=== PATIENT | female | born 1940 | race Caucasian/White ===

== ENCOUNTER → 2017-01-30 | Outpatient (CLI) | payer OTHER ==
[~2017-01-30] MED LIST: ACET-1256 PO; ALUMSUS21 PO; ANT25 PO; ARMO150T4 PO; BIOT1TAB2 PO; CALC8.5C PO; CYAN500T13 PO; CZR50 PO; ESCI1TAB10 PO; FNTTP50 TD; HYDR-4383 PO; LEVO75TA PO; LORA0.5T12 PO; MULT-513 PO; PANT1TAB48 PO; POLY335019 PO; POTA10CA28 PO; PRMVC PV; RANI300T2 PO; SUCR1TAB29 PO
--- NOTE | 2017-01-30 16:03 | DIAGNOSTIC IMAGING REPORT ---
LUMBAR SPINE MRI HISTORY: LUMBAR SPONDYLOSIS TECHNIQUE: Multiplanar multisequence MRI of the lumbar spine was performed without the use of contrast. COMPARISON: Lumbar spine radiograph 08/09/2011. FINDINGS: For the purpose of the report the L5-S1 disc space will be located on axial image . Moderate levoscoliosis. Posterior decompression fusion at L5-S1 with pedicle screws and rods. Stable 7 mm of anterolisthesis of L5 on S1. Severe disc space narrowing at T12-L1. Moderate disc space narrowing at L1-L2 and L3-L4. Mild disc space to L2-L3 and L4-L5. No fractures within the lumbar spine. Mild edema within the soft tissues posterior to the laminectomy sites. This favors postoperative change. The conus terminates at the L1-L2 disc space level. L1-L2: Focal right paracentral disc protrusion with inferior subligamentous migration. The disc protrusion measures 8 x 5 mm. This abuts but does not displace the transiting right L2 nerve root. No significant central canal narrowing. Severe right-sided neural foraminal narrowing due to the facet hypertrophy and scoliosis. L2-L3: Broad-based posterior disc bulge asymmetric to the right resulting in mild central canal and mild left neural foraminal narrowing. Moderate right neural foraminal narrowing. L3-L4: Broad-based posterior disc bulge asymmetric to the left resulting in mild central canal and mild right neural foraminal narrowing. There is severe left neural foraminal narrowing. L4-L5: Small broad-based posterior disc bulge without significant central canal narrowing. There is mild left neural foraminal narrowing. L5-S1: No significant central canal narrowing due to the posterior decompression. Severe bilateral neural frontal narrowing primarily due to the spondylolisthesis. IMPRESSION: 1. Moderate levoscoliosis. 2. Multilevel lumbar spondylosis as described above resulting in mild central canal narrowing at the L2-L3 and L3-L4 levels. There is also bilateral neural foraminal narrowing throughout the majority of the lumbar spine most severe at the L1-L2, L3-L4, and L5-S1 levels. 3. Posterior decompression and fusion at L5-S1 with pedicle screws and rods. Stable grade I/II anterolisthesis of L5 on S1. Electronically signed by: Alfred Mcmanus M.D. 01/30/2017 4:02 PM Dictated Date/Time: 01/30/2017 3:40 PM
== END | disposition home or self-care (01) ==
LOC: C.MRIBC 13:58
PROVIDERS: ATTEND Orthopaedic Surgery Orthopaedic Surgery of the Spine
DX: M47.16 Other spondylosis with myelopathy, lumbar region (principal)

== ENCOUNTER → 2017-02-05 | Outpatient (CLI) | payer OTHER ==
[2017-02-05 17:10] LABS: THYROID STIMULATING HORMONE 0.699 uIu/ml (0.300-4.500)
== END | disposition home or self-care (01) ==
LOC: C.LAB1850 15:15
PROVIDERS: ATTEND Internal Medicine Endocrinology, Diabetes & Metabolism
DX: M81.0 Age-related osteoporosis without current pathological fracture (principal); E03.9 Hypothyroidism, unspecified

== ENCOUNTER → 2017-02-10 | Outpatient (CLI) | payer OTHER ==
--- NOTE | 2017-02-10 09:43 | DIAGNOSTIC IMAGING REPORT ---
THYROID ULTRASOUND CLINICAL HISTORY: Solitary thyroid nodule. COMPARISON STUDY: Thyroid ultrasound February 07, 2016 and ultrasound guided fine needle aspiration of left lobe thyroid nodule February 22, 2016. TECHNIQUE: Sonography of the thyroid gland was performed. FINDINGS: The right thyroid lobe measures 4.8 x 1.5 x 0.9 cm and the left lobe measures 4.2 x 1.2 x 1.2 cm. The 1.4 x 1 x 0.9 cm circumscribed echogenic left lobe nodule within hypoechoic rim is unchanged since exam of February 07, 2016. This nodule was previously biopsied. 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 These are unchanged. IMPRESSION: No change in the 1.4 cm left lobe thyroid nodule which was previously biopsied. Electronically signed by: Kwasi Muhammad M.D. 02/10/2017 9:41 AM Dictated Date/Time: 02/10/2017 9:39 AM
== END | disposition home or self-care (01) ==
LOC: C.ULTR 08:59
PROVIDERS: ATTEND Internal Medicine Endocrinology, Diabetes & Metabolism
DX: E04.1 Nontoxic single thyroid nodule (principal)

== ENCOUNTER → 2017-03-17 | Outpatient (CLI) | payer OTHER ==
[2017-03-17 13:13] LABS: THYROID STIMULATING HORMONE 0.53 uIu/ml (0.300-4.500)
== END | disposition home or self-care (01) ==
LOC: C.LAB1850 11:22
PROVIDERS: ATTEND Internal Medicine Endocrinology, Diabetes & Metabolism
DX: E03.9 Hypothyroidism, unspecified (principal)

== ENCOUNTER → 2017-03-31 | Outpatient (CLI) | payer OTHER ==
--- NOTE | 2017-03-31 11:14 | DIAGNOSTIC IMAGING REPORT ---
GI SERIES W/O KUB CLINICAL HISTORY: Hiatal hernia. Epigastric pain. COMPARISON STUDY: None. FLUOROSCOPY TIME: 2.3 minutes. 20 images submitted. FINDINGS: The patient swallowed barium without difficulty. The esophagus is normal in course, caliber, motility. No hiatus hernia. No gastroesophageal reflux. Abnormal appearance to the proximal stomach which appears slightly narrowed. The duodenal bulb and duodenal C sweep are within normal limits. IMPRESSION: 1. Abnormal appearance to the proximal stomach which appears slightly narrowed. This could be within normal limits given the history of postoperative change. However, this is difficult to confirm without priors for comparison. 2. No hiatus hernia. 3. No gastroesophageal reflux. Electronically signed by: Alfred Mcmanus M.D. 03/31/2017 11:13 AM Dictated Date/Time: 03/31/2017 11:09 AM
== END | disposition home or self-care (01) ==
LOC: C.RAD 10:21
PROVIDERS: ATTEND Surgery
DX: K44.9 Diaphragmatic hernia without obstruction or gangrene (principal)

== ENCOUNTER → 2017-05-21 | Outpatient (CLI) | payer OTHER ==
[2017-05-21 10:10] LABS: THYROID STIMULATING HORMONE 0.442 uIu/ml (0.300-4.500)
== END | disposition home or self-care (01) ==
LOC: C.LAB1850 07:18
PROVIDERS: ATTEND Internal Medicine Endocrinology, Diabetes & Metabolism
DX: E03.9 Hypothyroidism, unspecified (principal)

== ENCOUNTER → 2017-06-01 | Outpatient (CLI) | payer OTHER ==
--- NOTE | 2017-06-02 06:17 | PAP/PSG TECHNICIAN REPORT ---
[facility] Call Center Operations Manager Polysomnogram Report Study name: None Report date: 06/02/2017 Study date: 06/01/2017 Referring Physician: Monserrat Orta Name: INO ANDERSON Interpreting Physician: Ji Guadalupe M.D. Date of : 1940 Call Center Operations Manager: Subhash Noel RPSGT. Sex: Female Age: 76 StudyType: PSG Weight: 109 lbs 12.25 inches Height: 76 years, Height 4' 11" Neck Circum: BMI: 22.01 Medications: LEVSIN/SL, XELJANZ 5 MG, CYTOMEL 5 MCG, LOSARTAN-HCTZ 100-25 MG, HYZAAR 100-25 MG, SYNTHROID 75 MCG, RANITIDINE HCL 300 MG, DURAGESIC 50 MCG/HR, LEXAPRO 20 MG, MIRALAX, BIOTIN 5000 MCG, [id number] MG, PREMARIN, LORAZEPAM 0.5 MG, NUVIGIL 250 MG Patient History PATIENT HAS HISTORY OF SNORING, WITNESSED APNEAS, NOCTURIA AND MORNING HEADACHES. SHE WAS HOSPITALIZED A FEW MONTHS AGO AND WAS PUT ON OXYGEN DUE TO NOCTURNAL HYPOXEMIA. SHE IS HERE TODAY FOR AN EVALUATION FOR ARTHUR. ESS = 6 RM 7 Parameters Monitored NPSG: E1-M2, E2-M1, Fp1-M2, Fp2-M1, F3-M2, F4-M2, F4-M1, C3-M2, C4-M2, C4-M1, O1-M2, O2-M2, O2-M1, T3-M2, T4-M1, P3-M2, P4-M1, CHIN1, CHIN2, HR, EKG, Legs, PFLOW, SNOR, FLOW, CFLOW, Tidal Volume, THOR, ABDO, SpO2, PLTH, CPRESS, ETCO2 Wave, ETCO2, pH Sleep Architecture Sleep Stages Time at Lights Off 8:40:09 PM STAGES Time (min.) TST (%) Time at Lights On 5:51:39 AM Wake 73.5 -- Total Recording Time (TRT) 552.00 min. N1 25.0 5 Total Sleep Period (TSP) 501.5 min. N2 396.0 83 Total Sleep Time (TST) 478.0min. N3 6.0 1 Awake Time 74.0 min. REM 51.0 11 Wake after Sleep Onset 24.5 min. Sleep Efficiency (SE) 87 % Sleep Onset Latency (NITO) 49.0 min. Number of Stage 1 Shifts None Awakenings 20 Stage Changes 84 Number of REM periods 2 REM 51.0 11 REM Latency 231.0 min. NREM 427.0 89 Body Position Analysis Supine Right Left Side Prone Vertical Total Sleep Time (min.) 80.1 99.0 320.5 419.50 0.0 0.0 Total Sleep Time (%) 12% 21% 67% 88 0% N/A% Total Sleep Time REM (min.) 35.5 0.0 15.5 None 0.0 0.0 Total Sleep Time NREM (min.) 23.0 99.0 305.0 None 0.0 0.0 Intermittent Wake (min.) 21.6 1.4 50.5 None 0.0 0.0 Total Sleep Period (%) 13% None None None None None Arousals Myoclonus (PLM) * Events Count Index Events Count Index Spontaneous 73 9 Events Awake (PLMW) 21 17.1 Respiratory 11 1.4 Events Asleep w/ Arousal (PLMA) 7 0.9 PLM 7 1 Events Asleep w/o Arousal (PLMS) 104 13.1 Snoring 2 0 Total Asleep 111 13.9 Total 93 12 Total 132 14 Respiratory Analysis * CA OA MA CH H RERA Total Count 102 3 3 0 158 1 266 Index 12.8 0.4 0.4 0 19.8 0 33.5 Mean Duration 26.9 14.0 29.7 0.00 25.1 19.1 25.7 Longest Duration 37.2 18.2 32.2 0.00 32.2 19.1 38.2 Respiratory Event Summary Total Supine ~Supine Right Left Prone REM NREM Apneas Count 108 11 97 87 10 N/A 9 99 Index 13.6 11 14 52.7 1.9 N/A 11 14 Hypopneas (4% Desat) Count 158 36 122 26 96 N/A 18 140 Index 19.8 36.9 17 15.8 18.0 N/A 21.2 19.7 Apneas & All Hypopneas Count 266 47 219 113 106 N/A 27 239 Index 33.4 48 31 68 20 N/A 31.8 33.6 Respiratory Events (Harness Inspector+All Hyp+RERA) Count 266 47 220 113 107 N/A 27 239 Index 33.5 48 31 68.5 20.0 N/A 31.8 33.7 Respiratory Related Arousal Count 11 47 3 0 3 N/A 3 8 Index 1.4 8 0 0 1 N/A 4 1 Snoring Analysis Supine Right Left Prone REM NREM Total Snore duration 0.6 min Snores count 17 9 7 N/A 16 17 33 Snore mean duration 1.2 Sec Snores index 17 5 1 N/A 18.8 2.4 4.1 TST with snoring (%) 0.1% Desaturation Event Summary: Minimum %SpO2 Event Count Mean/Min/Max Duration(sec.) Desaturation Index % Time In Bed > 90 270 26.5 / 9.8 / 54.0 36.5 80.5 86 - 90 10 22.8 / 15.0 / 30.5 5.7 19.1 81 - 85 0 N/A 0.0 0.4 76 - 80 0 N/A 0.0 0.0 71 - 75 0 N/A 0.0 0.0 66 - 70 0 N/A 0.0 0.0 61 - 65 0 N/A 0.0 0.0 56 - 60 0 N/A 0.0 0.0 51 - 55 0 N/A 0.0 0.0 < 50 0 N/A 0.0 0.0 Total REM NREM Awake <50% 0.0 min. 0.0 min. 0.0 min. 0.0 min. 51 - 60% 0.0 min. 0.0 min. 0.0 min. 0.0 min. 61 - 70% 0.0 min. 0.0 min. 0.0 min. 0.0 min. 71 - 80% 0.0 min. 0.0 min. 0.0 min. 0.0 min. 81 - 90% 107.4 min. 21.4 min. 82.9 min. 3.1 min. 91 - 100% 444.0 min. 29.6 min. 344.1 min. 70.3 min. Average 92 91 92 93 Minimum SpO2 85 85 85 85 Desaturation Event Index 29.6 34.1 33.7 3.3 # Desat. Events below 89% 146 21 123 2 Time(%) with Saturation below 89% 6.8 1.1 5.6 0.1 Time(min.) with Saturation below 89% 37.6 6.3 30.7 0.5 Time (mins) REM (mins) NREM (mins) % of TST SpO2 Below 90% 252 29 N223 12.1 SpO2 Below 88% 61 0 0 5 Heart Rate Analysis Min (bpm) Max (bpm) Average (bpm) Awake 45 67 59 NREM 45 62 52 REM 45 61 54 Overall 45 62 52 Supplemental O2 Values Minimum O2 level: None Value Start Time End Time Call Center Operations Manager Comments Mrs. Anderson slept in the right, left and supine positions. PAC's noted. Leg movements noted. No bruxism noted. Snoring was noted and scored as a 1 on a scale of 1 through 5. (0=no snoring, 5=snoring loud enough to be heard through a closed door or down the [address] way) Mrs. Anderson awoke to use the restroom 0 times during the night. Mrs. Anderson stated I slept as well as I do when I am in my own bed. The final report will be interpreted and signed by a sleep physician. The completed physician report will then be placed in the patient medical record. Therapy (cm H2O) 0 TIB (min.) 551.5 TST (min.) 478.0 Sleep Onset (min.) 49.0 REM Onset From Sleep (min.) 231.0 Sleep Efficiency % 87 Wakefulness (%) 13 Wakefulness (min.) 74.0 NREM 1 (%) 5 NREM 1 (min.) 25.0 NREM 2 (%) 83 NREM 2 (min.) 396.0 NREM 3 (%) 1 NREM 3 (min.) 6.0 REM (%) 11 REM (min.) 51.0 # Arousals 93 Arousal Index 12 # Snore 33 Snore Index 4.1 AHI 33.4 AHI Supine 48 AHI Non-Supine 31 NREM AHI 33.6 REM AHI 31.8 RDI 33.5 # Obstructive Apnea 3 # Central Apnea 102 # Mixed Apnea 3 # Hypopneas 158 RERAs 1 Total Respiratory Events 267 Time Below SpO2 89% (min.) 37.1 Mean NREM SpO2 (%) 92 Mean REM SpO2 (%) 91 Mean Sleep SpO2 (%) 92 Min NREM SpO2 (%) 85 Min REM SpO2 (%) 85 Position Supine (min.) 80.1 Position Non-supine (min.) 419.5 LM Index Sleep 13.9 LM Index NREM 12.6 LM Index REM 24.7 Mean Heart Rate (bpm) 52 Min Heart Rate (bpm) 45
--- NOTE | 2017-06-04 13:07 | POLYSOMNOGRAPH REPORT ---
CLINICAL DATA: A 76-year-old female with BMI of [address] Wiley for evaluation of snoring, witnessed apneas, nocturia, and morning headaches. She was hospitalized several months ago and put on oxygen due to nocturnal hypoxemia. Her [place] sleepiness score was 6/24. SLEEP ARCHITECTURE: Total sleep period was 501.5 minutes. Total sleep time was 478 minutes divided between 427 minutes of non-REM sleep and 51 minutes of REM sleep. Sleep onset latency was delayed at 49 minutes. REM latency was delayed at 231 minutes. Sleep efficiency was 87%. Wake after sleep onset was 24.5 minutes. Sleep consisted of stage N1 5%, stage N2 83%, stage N3 1%, and REM 11%. AROUSAL DATA: 93 arousals were recorded for an index of 12 per hour. 73 were spontaneous. PERIODIC LIMB MOVEMENTS DATA: 111 limb movements during sleep were noted for an index of 13.9 per hour with arousal index of 0.9 per hour. RESPIRATORY DATA: Severe sleep apnea was documented. The AHI was 33.4. There were 102 central, 3 obstructive, and 3 mixed apneic episodes. The longest duration of apnea was 37.2 seconds. There were 158 hypopneic episodes. The longest duration of hypopnea was 32.2 seconds. OXIMETRY DATA: Nocturnal hypoxemia was seen. Oxygen moises was 85% during REM. Mean saturation was 95%. Time below 88% was 61 minutes. EKG: Heart rates ranged from 45-62 beats per minute. PACs were noted. GREEN CHAIN PULLER'S COMMENTS: The patient slept in the right, left, and supine positions. Snoring was mild, rated 1 on a scale of 1-5. IMPRESSION: Severe sleep apnea/hypopnea with nocturnal hypoxemia. The patient's apneic episodes were primarily central in origin, which raises the question of underlying cardiac disease. RECOMMENDATIONS: The patient may benefit from a repeat sleep study with CPAP or possibly ASV. Clinical correlation is needed. [facility]ITAL[facility]
== END | disposition home or self-care (01) ==
LOC: C.NEUR 20:00
PROVIDERS: ATTEND Nurse Practitioner Family
DX: G47.31 Primary central sleep apnea (principal)

== ENCOUNTER → 2017-07-07 | Outpatient (CLI) | payer OTHER ==
[2017-07-07 17:15] LABS: THYROID STIMULATING HORMONE 0.412 uIu/ml (0.300-4.500)
== END | disposition home or self-care (01) ==
LOC: C.LAB1850 15:45
PROVIDERS: ATTEND Internal Medicine Endocrinology, Diabetes & Metabolism
DX: E03.9 Hypothyroidism, unspecified (principal)

== ENCOUNTER → 2017-07-13 | Outpatient (CLI) | payer OTHER ==
[~2017-07-13] MED LIST changes: +PANT1TAB3 PO; -PANT1TAB48 PO
--- NOTE | 2017-07-14 06:34 | PAP/PSG TECHNICIAN REPORT ---
[facility] Optometry Assistant Polysomnogram Report Study name: None Report date: 07/14/2017 Study date: 07/13/2017 Referring Physician: Dr. Miley Mckinney M.D. Name: INO ANDERSON Interpreting Physician: Ji Guadalupe M.D. Date of : 1940 Optometry Assistant: Kathleen Licea RUST. Sex: Female Age: 76 StudyType: PSG PAP Weight: 109 lbs Height: 76 years, Height 4' 11" Neck Circum:12.25inches BMI: 22.01 Medications: Oxygen at bedtime, Pamelor 25mg, Levsin/sl 0.125mg, Xeljanz 5mg, Prevacid 30mg, Cytomel 5mcg, Losartan-HCTZ 100-25mg, Synthroid 75mcg, Ranitidine 300mg, Duragesic 50mcg/hr, Lexapro 20mg, Miralax, Biotin, Hydrocodone=Acetaminophen 10-325mg, Premarin 0.625mg/gm, Calcium-Vit D-Vit K, Lorazepam 0.5mg, B-12 500mcg, Nuvigil 250mg, Epipen 0.3mg/0.3ml Patient History Study started on room air with 4cwp cpap in room #8. 76 yr old female here tonight for a new titration study. She had a diagnostic psg done here on 06/01/17 that had an AHI of 33.4 with a large number of central apneas. Her ESS=6/24. Neck circ=12.25inches Parameters Monitored NPSG: E1-M2, E2-M1, Fp1-M2, Fp2-M1, F3-M2, F4-M2, F4-M1, C3-M2, C4-M2, C4-M1, O1-M2, O2-M2, O2-M1, T3-M2, T4-M1, P3-M2, P4-M1, CHIN1, CHIN2, HR, EKG, Legs, PFLOW, SNOR, FLOW, CFLOW, Tidal Volume, THOR, ABDO, SpO2, PLTH, CPRESS, ETCO2 Wave, ETCO2, pH Sleep Architecture Sleep Stages Time at Lights Off 9:50:12 PM STAGES Time (min.) TST (%) Time at Lights On 5:52:12 AM Wake 74.5 -- Total Recording Time (TRT) 482.00 min. N1 7.0 2 Total Sleep Period (TSP) 425.5 min. N2 321.5 79 Total Sleep Time (TST) 407.5min. N3 35.5 9 Awake Time 74.5 min. REM 43.5 11 Wake after Sleep Onset 18.0 min. Sleep Efficiency (SE) 85 % Sleep Onset Latency (NITO) 56.5 min. Number of Stage 1 Shifts None Awakenings 8 Stage Changes 39 Number of REM periods 1 REM 43.5 11 REM Latency 382.0 min. NREM 364.0 89 Body Position Analysis Supine Right Left Side Prone Vertical Total Sleep Time (min.) 136.8 0.0 329.0 329.00 0.0 0.0 Total Sleep Time (%) 19% 0% 81% 81 0% N/A% Total Sleep Time REM (min.) 0.0 0.0 43.5 None 0.0 0.0 Total Sleep Time NREM (min.) 78.5 0.0 285.5 None 0.0 0.0 Intermittent Wake (min.) 58.3 0.0 16.2 None 0.0 0.0 Total Sleep Period (%) 19% None None None None None Arousals Myoclonus (PLM) * Events Count Index Events Count Index Spontaneous 16 2 Events Awake (PLMW) 16 12.9 Respiratory 1 0.1 Events Asleep w/ Arousal (PLMA) 2 0.3 PLM 2 0 Events Asleep w/o Arousal (PLMS) 71 10.5 Snoring 0 0 Total Asleep 73 10.7 Total 19 3 Total 89 11 Respiratory Analysis * CA OA MA CH H RERA Total Count 0 1 0 0 12 0 13 Index 0.0 0.1 0.0 0 1.8 0 1.9 Mean Duration 0.0 48.8 0.0 0.00 33.1 0.0 34.3 Longest Duration 0.0 48.8 0.0 0.00 0.0 0.0 48.8 Respiratory Event Summary Total Supine ~Supine Right Left Prone REM NREM Apneas Count 1 0 1 N/A 1 N/A 1 0 Index 0.1 0 0 N/A 0.2 N/A 1 0 Hypopneas (4% Desat) Count 12 10 2 N/A 2 N/A 0 12 Index 1.8 7.6 0 N/A 0.4 N/A 0.0 2.0 Apneas & All Hypopneas Count 13 10 3 N/A 3 N/A 1 12 Index 1.9 8 1 N/A 1 N/A 1.4 2.0 Respiratory Events (Model Maker+All Hyp+RERA) Count 13 10 3 N/A 3 N/A 1 12 Index 1.9 8 1 N/A 0.5 N/A 1.4 2.0 Respiratory Related Arousal Count 1 10 0 N/A 0 N/A 0 1 Index 0.1 1 0 N/A 0 N/A 0 0 Snoring Analysis Supine Right Left Prone REM NREM Total Snore duration 0.1 min Snores count 2 N/A 2 N/A 0 4 4 Snore mean duration 1.1 Sec Snores index 2 N/A 0 N/A 0.0 0.7 0.6 TST with snoring (%) 0.0% Desaturation Event Summary: Minimum %SpO2 Event Count Mean/Min/Max Duration(sec.) Desaturation Index % Time In Bed > 90 18 30.3 / 16.3 / 49.3 2.3 98.3 86 - 90 0 N/A 0.0 1.7 81 - 85 0 N/A 0.0 0.0 76 - 80 0 N/A 0.0 0.0 71 - 75 0 N/A 0.0 0.0 66 - 70 0 N/A 0.0 0.0 61 - 65 0 N/A 0.0 0.0 56 - 60 0 N/A 0.0 0.0 51 - 55 0 N/A 0.0 0.0 < 50 0 N/A 0.0 0.0 Total REM NREM Awake <50% 0.0 min. 0.0 min. 0.0 min. 0.0 min. 51 - 60% 0.0 min. 0.0 min. 0.0 min. 0.0 min. 61 - 70% 0.0 min. 0.0 min. 0.0 min. 0.0 min. 71 - 80% 0.0 min. 0.0 min. 0.0 min. 0.0 min. 81 - 90% 8.0 min. 0.0 min. 0.3 min. 7.7 min. 91 - 100% 473.3 min. 43.5 min. 363.7 min. 66.1 min. Average 94 93 94 92 Minimum SpO2 90 91 90 90 Desaturation Event Index 2.2 0.0 2.3 3.2 # Desat. Events below 89% N/A N/A N/A N/A Time(%) with Saturation below 89% 0.0 0.0 0.0 0.0 Time(min.) with Saturation below 89% 0.0 0.0 0.0 0.0 Time (mins) REM (mins) NREM (mins) % of TST SpO2 Below 90% N/A N/A NN/A 0.0 SpO2 Below 88% 0 0 0 0 Heart Rate Analysis Min (bpm) Max (bpm) Average (bpm) Awake 50 63 57 NREM 48 59 53 REM 48 63 57 Overall 48 63 53 Supplemental O2 Values Minimum O2 level: None Value Start Time End Time Optometry Assistant Comments Mrs. Anderson slept in the left and supine positions. No cardiac arrhythmia noted. Some leg movements were noted. No bruxism noted. CPAP was initiated at +4 CMH2O and up-titrated to a level of +7 CMH2O. A small AirTouch F20 full face mask by [employer] was used during titration. She did not use the restroom during the night. She stated that she slept well. The final report will be interpreted and signed by a sleep physician. The completed physician report will then be placed in the patient medical record. Therapy Event: Therapy (cm H20) 4 5 6 7 Total Time at Pressure (min.) 91.9 9.5 28.8 351.8 TST at Pressure (min.) 34.9 9.5 28.3 334.8 # Periods 1 1 1 1 Sleep Onset (min.) 56.5 0.0 0.0 0.0 REM Onset (min.) N/A N/A N/A 308.3 Sleep Efficiency % 38 100 98 95 Wakefulness (%) 62.0 0.0 1.7 4.8 Wakefulness (min.) 57.0 0.0 0.5 17.0 NREM 1 (%) 1.1 0.0 0.0 1.7 NREM 1 (min.) 1.0 0.0 0.0 6.0 NREM 2 (%) 36.9 100.0 98.3 71.0 NREM 2 (min.) 33.9 9.5 28.3 249.8 NREM 3 (%) 0.0 0.0 0.0 10.1 NREM 3 (min.) 0.0 0.0 0.0 35.5 REM (%) 0.0 0.0 0.0 12.4 REM (min.) 0.0 0.0 0.0 43.5 # Arousals 1 1 2 15 Arousal Index 1.7 6.3 4.2 2.7 # Snore 1 0 1 2 Snore Index 1.7 0.0 2.1 0.4 AHI 8.6 12.7 6.4 0.5 AHI Supine 8.6 12.7 6.4 0.0 AHI Non-Supine N/A N/A N/A 0.5 NREM AHI 8.6 12.7 6.4 0.4 REM AHI N/A N/A N/A 1.4 RDI 8.6 12.7 6.4 0.5 # Obstructive 0 0 0 1 # Central Ap 0 0 0 0 # Mixed 0 0 0 0 # Hypopneas 5 2 3 2 RERAS 0 0 0 0 Total Respiratory Events 5 2 3 3 Time Below SpO2 89.00% (min.) 0.0 0.0 0.0 0.0 Mean NREM SpO2 (%) 93 95 95 94 Mean REM SpO2 (%) N/A N/A N/A 93 Mean Sleep SpO2 (%) 93 95 95 94 Min NREM SpO2 (%) 90 92 92 91 Min REM SpO2 (%) N/A N/A N/A 91 Position Supine (min.) 34.9 9.5 28.3 5.8 Position Non-supine (min.) 0.0 0.0 0.0 329.0 LM Index Sleep 17.2 12.7 16.9 9.5 LM Index NREM 17.2 12.7 16.9 9.7 LM Index REM N/A N/A N/A 8.3 Mean Heart Rate (bpm) 55 53 53 53 Min Heart Rate (bpm) 50 51 49 48
--- NOTE | 2017-07-14 18:40 | POLYSOMNOGRAPH REPORT ---
CLINICAL DATA: A 76-year-old female with a BMI of 22, referred by Dr. Mckinney for CPAP titration study. She had severe sleep apnea diagnosed on a sleep study done in 06/01/2017 with an AHI of 33.4 with large number of central apneic episodes. Her [place] sleepiness score is 6/24. SLEEP ARCHITECTURE: Total sleep period was 425.5 minutes. Total sleep time was 407.5 minutes divided between 364 minutes of non-REM sleep and 43.5 minutes of REM sleep. Sleep onset latency was delayed at 56.5 minutes. REM latency was delayed at 382 minutes. Sleep efficiency was 85%. Wake after sleep onset was 18 minutes. Sleep consisted of stage N1 2%, stage N2 79%, stage N3 9%, and REM 11%. AROUSAL DATA: Nineteen arousals were recorded for an index of 3 per hour. Sixteen were spontaneous. PERIODIC LIMB MOVEMENT DATA: Seventy three limb movements during sleep were noted for an index of 10.7 per hour with arousal index of 0.3 per hour. RESPIRATORY DATA: The AHI was 1.9. There was 1 obstructive apneic episode 48.8 seconds in duration. There were 12 hypopneic episodes with the mean duration of 33 seconds. OXIMETRY DATA: No hypoxemia was seen. Oxygen moises was 90%. Mean saturation was 94%. ECHOCARDIOGRAM: Heart rates ranged from 48-62 beats per minute. No arrhythmias were noted. PULMONARY FUNCTION TECHNOLOGIST'S COMMENTS AND TREATMENT SUMMARY: The patient slept in the left and supine positions. A small AirTouch F20 full facemask by [employer] was used. The patient was titrated up to her final pressure of 7 cm water pressure. At her final setting, she slept for 334.8 minutes with an AHI of 0.5. IMPRESSION: Severe sleep apnea/hypopnea corrected with CPAP 7 cm of water pressure, small AirTouch F20 full facemask by [employer]. RECOMMENDATIONS: The patient should be started on the above noted treatment regimen and seen back in followup within 90 days to document efficacy and compliance. [facility]
== END | disposition home or self-care (01) ==
LOC: C.NEUR 21:00
PROVIDERS: ATTEND Internal Medicine
DX: G47.31 Primary central sleep apnea (principal)

== ENCOUNTER → 2017-08-21 | Outpatient (CLI) | payer OTHER | END | disposition home or self-care (01) | LOC: C.LAB1850 13:13 | PROVIDERS: ATTEND Internal Medicine Endocrinology, Diabetes & Metabolism | DX: E03.9 Hypothyroidism, unspecified (principal) ==

== ENCOUNTER → 2017-10-20 | Outpatient (CLI) | payer OTHER | END | disposition home or self-care (01) | LOC: C.LAB1850 13:56 | PROVIDERS: ATTEND Internal Medicine Endocrinology, Diabetes & Metabolism | DX: E03.9 Hypothyroidism, unspecified (principal) ==

== ENCOUNTER → 2018-03-17 | Outpatient (CLI) | payer OTHER ==
[2018-03-17 13:16] LABS: BASO % 0.5 %; BASO ABS # 0.03 K/uL (0-0.2); EOS % 0.4 %; EOS ABS # 0.02 K/uL (0-0.5); HEMATOCRIT 38.9 % (37-47); HEMOGLOBIN 13.3 g/dL (12.0-16.0); IG# 0.02 K/uL (0.00-0.02); LYMPH % 26.8 %; MEAN CELL VOLUME 96.3 fL (80-100); MEAN CORPUSCULAR HEMOGLOBIN 32.9 pg (25-34); MEAN CORPUSCULAR HGB CONC 34.2 g/dl (32-36); MEAN PLATELET VOLUME 8.6 fL (7.4-10.4); MONO % 6.8 %; MONO ABS # 0.38 K/uL (0.11-0.59); NEUT % 65.1 %; NEUT ABS # 3.64 K/uL (1.4-6.5); PLATELET COUNT 211 K/uL (130-400); RED CELL DISTRIBUTION WIDTH CV 13.5 % (11.5-14.5); RED CELL DISTRIBUTION WIDTH SD 48.3 fL (36.4-46.3); WHITE BLOOD COUNT 5.59 K/uL (4.8-10.8)
[2018-03-17 13:50] LABS: T3 FREE 2.33 pg/ml (2.30-4.20)
[2018-03-17 13:51] LABS: ALBUMIN 3.7 gm/dl (3.4-5.0); ALKALINE PHOSPHATASE 65 U/L (45-117); ALT/SGPT 31 U/L (12-78); AST/SGOT 26 U/L (15-37); BLOOD UREA NITROGEN 24 mg/dl (7-18); CALCIUM 9.4 mg/dl (8.5-10.1); CARBON DIOXIDE 30 mmol/L (21-32); CREATININE 0.74 mg/dl (0.60-1.20); GLUCOSE 85 mg/dl (70-99); POTASSIUM 4.2 mmol/L (3.5-5.1); SODIUM 139 mmol/L (136-145); TOTAL PROTEIN 7.1 gm/dl (6.4-8.2)
[2018-03-18 14:17] LABS: MICROSOMAL AB 2 IU/ML (<9)
== END | disposition home or self-care (01) ==
LOC: C.LAB1850 11:44
PROVIDERS: ATTEND Internal Medicine Endocrinology, Diabetes & Metabolism
DX: E03.9 Hypothyroidism, unspecified (principal); M81.0 Age-related osteoporosis without current pathological fracture

== ENCOUNTER 2018-11-20 04:49 | Inpatient (IN) ==
--- NOTE | 2018-10-20 12:19 | PAT Medication Instructions ---
Medication Instructions Date of Service October 20, 2018 Home Medications [Gaviscon] x ml PO DIRECTED PRN armodafinil [Nuvigil] 250 mg PO QAM biotin 5,000 mcg PO TID [Viactiv] 1 tab PO BID conjugated estrogens [Premarin] 0.5 g VAGINAL 3XWK cyanocobalamin (vitamin B-12) 1,000 mcg PO DAILY diclofenac sodium 2 g TOPICAL QID PRN duloxetine 60 mg PO QAM epinephrine [EpiPen] 0.3 mg IM Q3H PRN hydrocodone-acetaminophen 1 tab PO Q6H PRN lansoprazole 30 mg PO BID levothyroxine [Synthroid] 75 mcg PO QAM losartan-hydrochlorothiazide 1 tab PO QAM meclizine 25 mg PO TID PRN nitroglycerin [Nitrostat] 0.3 mg SUBLINGUAL DIRECTED PRN oxybutynin chloride 10 mg PO QAM polyethylene glycol 3350 [Miralax] 17 g PO DAILY ranitidine HCl [Zantac] 150 mg PO Q12 sucralfate 10 ml PO QID PRN tizanidine 4 mg PO TID PRN tofacitinib [Xeljanz] 5 mg PO BID [place] 3 1 dose PO DAILY [[employer]] 1 tab PO DAILY Continue as directed epinephrine [EpiPen] 0.3 mg IM Q3H PRN ASK your prescriber and surgeon tofacitinib [Xeljanz] 5 mg PO BID STOP taking 2 weeks before surgery [place] 3 1 dose PO DAILY STOP taking 24 hours before surgery conjugated estrogens [Premarin] 0.5 g VAGINAL 3XWK diclofenac sodium 2 g TOPICAL QID PRN DO NOT take the morning of surgery [Gaviscon] x ml PO DIRECTED PRN armodafinil [Nuvigil] 250 mg PO QAM biotin 5,000 mcg PO TID [Viactiv] 1 tab PO BID cyanocobalamin (vitamin B-12) 1,000 mcg PO DAILY diclofenac sodium 2 g TOPICAL QID PRN losartan-hydrochlorothiazide 1 tab PO QAM oxybutynin chloride 10 mg PO QAM polyethylene glycol 3350 [Miralax] 17 g PO DAILY sucralfate 10 ml PO QID PRN tizanidine 4 mg PO TID PRN [[employer] Women] 1 tab PO DAILY Take morning of surgery With a small sip of water, OTHERWISE NOTHING TO EAT OR DRINK AFTER MIDNIGHT: duloxetine 60 mg PO QAM hydrocodone-acetaminophen 1 tab PO Q6H PRN (if needed, may be taken up to four hours before surgery) lansoprazole 30 mg PO BID levothyroxine [Synthroid] 75 mcg PO QAM meclizine 25 mg PO TID PRN (if needed) nitroglycerin [Nitrostat] 0.3 mg SUBLINGUAL DIRECTED PRN (if needed) ranitidine HCl [Zantac] 150 mg PO Q12 Take evening before surgery [Gaviscon] x ml PO DIRECTED PRN (if needed) biotin 5,000 mcg PO TID [Viactiv] 1 tab PO BID hydrocodone-acetaminophen 1 tab PO Q6H PRN (if needed) lansoprazole 30 mg PO BID meclizine 25 mg PO TID PRN (if needed) nitroglycerin [Nitrostat] 0.3 mg SUBLINGUAL DIRECTED PRN (if needed) polyethylene glycol 3350 [Miralax] 17 g PO DAILY ranitidine HCl [Zantac] 150 mg PO Q12 sucralfate 10 ml PO QID PRN (if needed) tizanidine 4 mg PO TID PRN (if needed) Other Notes If you have any questions please call us at [phone] or [phone] or [phone] or [phone]
--- NOTE | 2018-10-20 12:29 | Anesthesiology Consultation ---
Date of Service October 20, 2018 Assessment & Plan (1) Encounter for pre-operative examination: Cardiology clearance 10/26: "Dobutamine stress echocardiography will be performed for further risk stratification prior to sternal older surgery. Continue current cardiovascular medications as listed above which were reviewed and updated today. Repeat fasting lipid panel ordered. Consider addition of alternative statin (ie pravastatin 10 mg 3 days per week) pending review of results. Encouraged follow-up with Gastroenterology regarding hiatal hernia and esophageal dysmotility. All questions answered to satisfaction of both the patient and her . They are agreeable to the current plan, however, will report any change or decline in clinical status." Patient had normal DSE 11/11. Cardiology addendum 11/12 "Normal cardiac catheterization 2015. Dobutamine stress echo negative for inducible ischemia 11/11/18. Blood pressure is well controlled per most recent office visit. Patient is considered low perioperative risk from a cardiovascular standpoint." Chart Review Chart Review: Acceptable Risk for Surgery and Patient seen in Pre Admission Testing Teaching & Discussion Instructed NPO after midnight before surgery, except medications with 15 cc of water. Medication instructions provided according to the PAT guidelines. History Surgery Operation Date: 11/20/18 08:20 Proposed Procedures p Left Reverse Total Shoulder Arthroplasty - Roberth Ortiz, Height/Weight Height: 4 ft 11 in Weight: 55.3 kg Allergies Allergy/AdvReac Type Severity Reaction Status Date / Time bee venom protein (honey bee) Allergy Unknown "SWELLED Verified 10/20/18 08:38 ALL UP" Iodinated Contrast- Oral and Allergy Unknown PASSED Verified 10/20/18 08:38 IV Dye OUT-BODY FELT COLD ALL OVER atorvastatin AdvReac Unknown PAIN IN Verified 10/20/18 08:38 JOINTS gabapentin AdvReac Unknown HORRIBLE Verified 10/20/18 08:38 HEADACHES rosuvastatin [From Crestor] AdvReac Unknown PAIN IN Verified 10/20/18 08:38 JOINTS Medications Home Medications Medication Instructions Recorded Confirmed Last Taken aluminum hydrox-magnesium carb 0 ml PO DIRECTED PRN 07/15/18 10/20/18 Unknown [Gaviscon] armodafinil [Nuvigil] 250 mg PO QAM 07/15/18 10/20/18 10/19/18 biotin 5,000 mcg PO TID 07/15/18 10/20/18 07/15/18 2 DOSES calcium-vitamin D3-vitamin K 1 tab PO BID 07/15/18 10/20/18 07/15/18 [Viactiv] AM DOSE conjugated estrogens [Premarin] 0.5 g VAGINAL 3XWK 07/15/18 10/20/18 Unknown cyanocobalamin (vitamin B-12) 1,000 mcg PO DAILY 07/15/18 10/20/18 07/15/18 [Vitamin B-12] diclofenac sodium 2 g TOPICAL QID PRN 07/15/18 10/20/18 07/15/18 2 DOSES duloxetine 60 mg PO QAM 07/15/18 10/20/18 10/19/18 epinephrine [EpiPen] 0.3 mg IM Q3H PRN 07/15/18 10/20/18 Unknown hydrocodone-acetaminophen 1 tab PO Q6H PRN 07/15/18 10/20/18 07/15/18 09:30 lansoprazole 30 mg PO BID 07/15/18 10/20/18 07/15/18 AM DOSE levothyroxine [Synthroid] 75 mcg PO QAM 07/15/18 10/20/18 10/20/18 losartan-hydrochlorothiazide 1 tab PO QAM 07/15/18 10/20/18 10/19/18 meclizine 25 mg PO TID PRN 07/15/18 10/20/18 Unknown nitroglycerin [Nitrostat] 0.3 mg SUBLINGUAL DIRECTED PRN 07/15/18 10/20/18 Unknown oxybutynin chloride 10 mg PO QAM 07/15/18 10/20/18 10/19/18 polyethylene glycol 3350 [Miralax] 17 g PO DAILY 07/15/18 10/20/18 07/15/18 ranitidine HCl [Zantac] 150 mg PO Q12 07/15/18 10/20/18 07/15/18 AM DOSE sucralfate 10 ml PO QID PRN 07/15/18 10/20/18 07/15/18 2 DOSES tizanidine 4 mg PO TID PRN 07/15/18 10/20/18 Unknown tofacitinib [Xeljanz] 5 mg PO BID 07/15/18 10/20/18 10/19/18 [place] 3 1 dose PO DAILY 10/20/18 10/20/18 Unknown [id number] 1 tab PO DAILY 10/20/18 10/20/18 Unknown [Adelia Churchill] Past Medical History Medical History Hypertension (Chronic) Age related osteoporosis Dyslipidemia Fatigue Per 03/2018 endocrine eval, felt to be Subacute thyroiditis likely in thyrotoxic phase. Pt still experiencing fatigue, is going to seek second opinion. Fibromyalgia GERD (gastroesophageal reflux disease) History of concussion MAY 2018 - 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 GETS HEADACHES FROM History of skin cancer Hx of sleep apnea COULDN'T TOLERATE CPAP/REPEAT TESTING SHOWED "DIDN'T NEED" CPAP Osteoarthritis Rheumatoid arthritis On Xeljanz Scoliosis Trouble swallowing With specific foods (steak), 2/2 hiatal hernia repair. If food gets stuck she gets chest pain and was given Nitroglycerin for this. Urinary incontinence Past Family History Family History Other No pertinent family history Past Surgical History Surgical History History of bilateral cataract extraction History of cardiac cath 4 YRS AGO..CHEST PAIN...ALTOONA - NO FINDINGS...HIATAL HERNIA DX History of colonoscopy History of endoscopy DILATION OF ESOPHAGUS History of eye surgery LASER History of hysterectomy "PARTIAL" History of laparoscopic cholecystectomy History of lumbar fusion History of rectocele REPAIR WITH MESH AND MESH SINCE REMOVED History of repair of hiatal hernia History of right knee surgery BRUSA SAC REMOVED History of total left knee replacement History of urologic surgery BLADDER TAC Past Anesthesia History No Hx of Anesthesia Complications and No Family Hx of Anesthesia Complications History of PONV No Motion Sickness Screening History of Motion Sickness: No Social History Smoking Status: Never smoker Do You Dip or Chew Tobacco: No Hx Alcohol Use: No Hx Substance Use: No substance use type: does not use Exercise / Class Metabolic Activity II 4-5 Yardwork/Stairs/Walk up hill (Pt is mildly SOB, "huffing and puffing at the top" with 10 steps at home, but does multiple times daily. No CP.) Review of Systems Pt denies any recent chest pain, shortness of breath, palpitations, cough, fever or URI. Physical Exam Vital Signs BP: 135/78 P: 71bpm SPO2: 97% RA T: 97.7F R: 16 ENMT Mouth: + dentures (upper and lower partials) and + small oral opening; no chipp ed teeth and no loose teeth Thyromental Distance: < 3.5 Finger Breadths (3) Mallampati Class: II Neck normal visual inspection; neck extension not limited Respiratory normal respiratory effort Auscultation: lungs clear to auscultation bilaterally Cardiovascular Rate/Rhythm: regular rate and regular rhythm Heart Sounds: no murmur Vessels: no carotid bruit Extremities: no edema Testing Electrocardiogram Date: 10/20/18 Findings: + SB @ (59) Chest X-Ray Date: 10/20/18 IMPRESSION: Moderate emphysematous change. Mild stable cardiomegaly. No acute p rocess. Stress Test Date: 11/11/18 Type: DSE Resting EF: 60% Examination is adequate to evaluate the referral indication. DSE negative for inducible ischemia. Left ventricular cavity size is normal. The LV wall thickness is mildly increased (concentric). The left ventricular wall motion is normal. Grade 1 diastolic dysfunction. Cardiac Catheterization Date: 11/22/15 Angiographically normal coronary arteries. Normal left ventriculogram. Cervical Spine Date: 10/20/18 FINDINGS: Demineralized appearance of the bones. Severe intervertebral disc space narrowing at C5-C6. 3 mm retrolisthesis C2 on C3 is unchanged with neutral, flexion and extension images. 3 mm anterolisthesis C3 on C4 is also unchanged in neutral, flexion and extension views. 2 mm anterolisthesis C6 on C7 is also unchanged. No evidence of cervical spine instability. Moderate multilevel spondylitic spurring with severe multilevel facet arthropathy. No prevertebral soft tissue swelling. IMPRESSION: 1. No acute fracture. 2. No evidence of cervical spine instability. 3. Degenerative changes as above. Laboratory Results 10/20/18 12:55 10/20/18 12:55 Blood Type A Positive 10/20/18 12:55 Antibody Screen NEGATIVE 10/20/18 12:55 PT 10.9 Seconds (9.0-12.0) 10/20/18 12:55 INR 1.1 (0.9-1.1) 10/20/18 12:55 APTT 23.9 Seconds (21.0-31.0) 10/20/18 12:55
--- NOTE | 2018-10-20 13:45 | XRay Report ---
XR chest Pre-admission PA/Lat CLINICAL HISTORY: PAT preoperative COMPARISON STUDY: 72,[id number] FINDINGS: Mild stable cardia megaly. Moderate emphysematous change. Severe degenerative change of bot h shoulders. IMPRESSION: Moderate emphysematous change. Mild stable cardiomegaly. No acute process. The above report was generated using voice recognition software. It may contain grammatical, syntax or spelling errors. Electronically signed by: Emre Decker M.D. 10/20/2018 1:44 PM
--- NOTE | 2018-10-20 14:20 | XRay Report ---
XR cervical spine 2 or 3V HISTORY: 77 years-old Female pre op RA; lateral neutral/flexion/extension preoperative exam. COMPARISON: Cervical spine radiographs 01/09/2015 TECHNIQUE: 3 views of the cervical spine FINDINGS: Demineralized appearance of the bones. Severe intervertebral disc space narrowing at C5-C6. 3 mm retr olisthesis C2 on C3 is unchanged with neutral, flexion and extension images. 3 mm anterolisthesis C3 on C4 is also unchanged in neutral, flexion and extension views. 2 mm anterolisthesis C6 on C7 is als o unchanged. No evidence of cervical spine instability. Moderate multilevel spondylitic spurring with severe multilevel facet arthropathy. No prevertebral soft tissue swelling. IMPRESSION: 1. No acute fracture. 2. No evidence of cervical spine instability. 3. Degenerative changes as above. The above report was generated using voice recognition software. It may contain grammatical, syntax o r spelling errors. Electronically signed by: He Fitzgerald M.D. 10/20/2018 2:19 PM
[2018-10-20 14:30] LABS: Basophils # (auto) 0.03 K/uL (0-0.2); Basophils % (auto) 0.6 %; Eosinophils # (auto) 0.02 K/uL (0-0.5); Eosinophils % (auto) 0.4 %; Hematocrit (blood only) 39.1 % (37-47); Hemoglobin 13.4 g/dL (12.0-16.0); Immature Granulocytes # (auto) 0.01 K/uL (0.00-0.02); Immature Granulocytes % (auto) 0.2 %; Lymphocytes # (auto) 1.43 K/uL (1.2-3.4); Mean Corpuscular Hgb Conc 34.3 g/dL (32-36); Mean Corpuscular Volume 97.5 fL (80-100); Mean Platelet Volume 9.2 fL (7.4-10.4); Monocytes # (auto) 0.39 K/uL (0.11-0.59); Monocytes % (auto) 7.4 %; Neutrophils # (auto) 3.42 K/uL (1.4-6.5); Neutrophils % (auto) 64.4 %; Platelet Count 195 K/uL (130-400); RDW Coefficient of Variation 12.9 % (11.5-14.5); Red Blood Count 4.01 M/uL (4.2-5.4)
[2018-10-20 14:40] LABS: INR 1.1 (0.9-1.1); Partial Thromboplastin Ratio 0.9; Partial Thromboplastin Time 23.9 Seconds (21.0-31.0); Prothrombin Time 10.9 Seconds (9.0-12.0)
[2018-10-20 15:05] LABS: BUN Creatinine Ratio 30.7 (10-20); Calcium 9.3 mg/dl (8.5-10.1); Creatinine Clr Calc Pharmacy 46.7 ml/min; Est GFR (African American) 84.9; Est GFR (Non-African American) 73.2; Potassium 4.1 mmol/L (3.5-5.1)
--- NOTE | 2018-11-19 20:25 | History & Physical Report ---
Date of Service November 19, 2018 Assessment & Plan (1) Rheumatoid arthritis involving shoulder: We will proceed with a reverse left shoulder arthroplasty. Postoperatively she will be kept overnight in the hospital for postop medical management. She plans to use energy physical therapy upon discharge. Present on Admission?: Yes History of Present Illness Chief Complaint: Advanced rheumatoid arthritis of the left shoulder Primary Care Provider: Shaila Dudley MD Patient is a pleasant 77-year-old female who is been dealing with a long history of increasing left shoulder pain. 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 I have given her multiple injections. Unfortunately injections are no longer helping. She elected to proceed with reverse left shoulder arthroplasty. Allergies Allergy/AdvReac Type Severity Reaction Status Date / Time bee venom protein (honey bee) Allergy Unknown "SWELLED Verified 10/20/18 08:38 ALL UP" Iodinated Contrast- Oral and Allergy Unknown PASSED Verified 10/20/18 08:38 IV Dye OUT-BODY FELT COLD ALL OVER atorvastatin AdvReac Unknown PAIN IN Verified 10/20/18 08:38 JOINTS gabapentin AdvReac Unknown HORRIBLE Verified 10/20/18 08:38 HEADACHES rosuvastatin [From Crestor] AdvReac Unknown PAIN IN Verified 10/20/18 08:38 JOINTS Home Medications Home Medications Medication Instructions Recorded Confirmed Type aluminum hydrox-magnesium carb 0 ml PO DIRECTED PRN 07/15/18 10/20/18 History [Gaviscon] armodafinil [Nuvigil] 250 mg PO QAM 07/15/18 10/20/18 History biotin 5,000 mcg PO TID 07/15/18 10/20/18 History calcium-vitamin D3-vitamin K 1 tab PO BID 07/15/18 10/20/18 History [Viactiv] conjugated estrogens [Premarin] 0.5 g VAGINAL 3XWK 07/15/18 10/20/18 History cyanocobalamin (vitamin B-12) 1,000 mcg PO DAILY 07/15/18 10/20/18 History [Vitamin B-12] diclofenac sodium 2 g TOPICAL QID PRN 07/15/18 10/20/18 History duloxetine 60 mg PO QAM 07/15/18 10/20/18 History epinephrine [EpiPen] 0.3 mg IM Q3H PRN 07/15/18 10/20/18 History hydrocodone-acetaminophen 1 tab PO Q6H PRN 07/15/18 10/20/18 History lansoprazole 30 mg PO BID 07/15/18 10/20/18 History levothyroxine [Synthroid] 75 mcg PO QAM 07/15/18 10/20/18 History losartan-hydrochlorothiazide 1 tab PO QAM 07/15/18 10/20/18 History meclizine 25 mg PO TID PRN 07/15/18 10/20/18 History nitroglycerin [Nitrostat] 0.3 mg SUBLINGUAL DIRECTED PRN 07/15/18 10/20/18 History oxybutynin chloride 10 mg PO QAM 07/15/18 10/20/18 History polyethylene glycol 3350 [Miralax] 17 g PO DAILY 07/15/18 10/20/18 History ranitidine HCl [Zantac] 150 mg PO Q12 07/15/18 10/20/18 History sucralfate 10 ml PO QID PRN 07/15/18 10/20/18 History tizanidine 4 mg PO TID PRN 07/15/18 10/20/18 History tofacitinib [Xeljanz] 5 mg PO BID 07/15/18 10/20/18 History [place] 3 1 dose PO DAILY 10/20/18 10/20/18 History ihvvkyjm-dlr-kdvi-FA-lutein 1 tab PO DAILY 10/20/18 10/20/18 History [Centrum Silver Women] Past Med/Surg History Medical History Hypertension (Chronic) Age related osteoporosis Dyslipidemia Fatigue Per 03/2018 endocrine eval, felt to be Subacute thyroiditis likely in thyrotoxic phase. Pt still experiencing fatigue, is going to seek second opinion. Fibromyalgia GERD (gastroesophageal reflux disease) History of concussion MAY 2018 - 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 GETS HEADACHES FROM History of skin cancer Hx of sleep apnea COULDN'T TOLERATE CPAP/REPEAT TESTING SHOWED "DIDN'T NEED" CPAP Osteoarthritis Rheumatoid arthritis On Xeljanz Scoliosis Trouble swallowing With specific foods (steak), 2/2 hiatal hernia repair. If food gets stuck she gets chest pain and was given Nitroglycerin for this. Urinary incontinence Surgical History History of bilateral cataract extraction History of cardiac cath 4 YRS AGO..CHEST PAIN...ALTOONA - NO FINDINGS...HIATAL HERNIA DX History of colonoscopy History of endoscopy DILATION OF ESOPHAGUS History of eye surgery LASER History of hysterectomy "PARTIAL" History of laparoscopic cholecystectomy History of lumbar fusion History of rectocele REPAIR WITH MESH AND MESH SINCE REMOVED History of repair of hiatal hernia History of right knee surgery BRUSA SAC REMOVED History of total left knee replacement History of urologic surgery BLADDER TAC Family History Other No pertinent family history Social History Preferred Language: Bengali Communication Ability: Effective Beliefs That Will Affect Care: None Current Living Situation: Spouse Feels Safe at Home: Yes Smoking Status: Never smoker Hx Alcohol Use: No Hx Substance Use: No Review of Systems All systems reviewed & are unremarkable except as noted in HPI & below Physical Exam Constitutional: WD/WN, vitals as above Eyes: PERRL, conjunctivae normal, anicteric sclerae ENMT: external ear and nose normal, oropharynx normal Neck: trachea midline, no thyromegaly Respiratory: normal respiratory effort Cardiovascular: RRR, no murmur, no edema Gastrointestinal (Abdomen): normal bowel sounds, soft, nontender, no hepatosplenomegaly Musculoskeletal: Physical examination of the left shoulder reveals decreased range of motion and significant weakness. There is tenderness palpation along the anterior glenohumeral joint line. The right upper extremity is neurovascularly intact. Psychiatric: A+Ox3, euthymic affect Results & Data Diagnostic Findings Radiographs of the left shoulder show signs of severe rheumatoid arthritis with significant superior and central wear of the glenoid. There is also medialization of the glenohumeral joint line. There is joint space narrowing, osteophyte formation, and [id number] articulation.
[2018-11-20] MEDS ORDERED: GABAPENTIN 300 MG PO SCH (06:00)
[2018-11-20] MEDS ORDERED: LR 60ML/HR IV SCH (06:00)
[2018-11-20] MEDS ORDERED: FAMOTIDINE 20 MG TAB PO SCH (06:00)
[2018-11-20] MEDS ORDERED: ROPIVACAINE 0.5% HCL/PF 150 MG, BUPIVACAINE 0.5% MPF 30 ML, EPINEPHrine 30MG/30ML (OR U... INFIL SCH (06:00)
[2018-11-20] MEDS ORDERED: ACETAMINOPHEN 500 MG TAB PO SCH (06:00)
[2018-11-20] MEDS ORDERED: TRANEXAMIC ACID 1,000 MG **IV Pre-op IV SCH (06:00)
[2018-11-20] MEDS ORDERED: CEFAZOLIN 2000MG 2,000 MG/15 ML SYR IV SCH (06:00)
[2018-11-20] MEDS ORDERED: LR 15ML/HR IV SCH (06:00)
[2018-11-20] MEDS ORDERED: BUPIVACAINE 0.5 % 5 MG/1 ML PF 10ML VIAL ONE (06:25)
[2018-11-20] MEDS ORDERED: TRANEXAMIC ACID 1,000 MG **IV Intra-op IV SCH (06:30)
[2018-11-20] MEDS ORDERED: PROPOFOL IV EMULSION 10 MG/ML 20 ML VIAL IV ONE (06:31)
[2018-11-20] MEDS ORDERED: fentaNYL citrate 100 MCG/2 ML VIAL ONE (06:31)
[2018-11-20] MEDS ORDERED: SUCCINYLCHOLINE CHLORIDE 20 MG/ML 10 ML VIAL ONE (06:31)
[2018-11-20] MEDS ORDERED: ONDANSETRON INJ 2 MG/ML 2 ML VIAL ONE (06:31)
[2018-11-20] MEDS ORDERED: MIDAZOLAM HCL 1 MG/ML 2ML VIAL ONE (06:31)
[2018-11-20] MEDS ORDERED: ORTHO JOINT ANESTHETIC ONE (06:36)
[2018-11-20] MEDS ORDERED: POVIDONE-IODINE OP SOLN 30 ML BTL ONE (06:36)
--- NOTE | 2018-11-20 06:48 | History & Physical Bridge Note ---
Date of Service November 20, 2018 History & Physical Bridge Note I have examined the patient, reviewed the History & Physical and in the interval since the performance of the History & Physical I have noted the following changes of clinical significance: no changes noted
[2018-11-20] MEDS ORDERED: ePHEDrine sulfate 50 MG/ML AMP ONE ×2 (07:33→08:28)
[2018-11-20] MEDS ORDERED: ATROPINE SULFATE 0.1 MG/ML 10ML SYR IV PRN (07:38)
[2018-11-20] MEDS ORDERED: ONDANSETRON INJ 2 MG/ML 2 ML VIAL IV PRN ×2 (07:38→10:42)
[2018-11-20] MEDS ORDERED: fentaNYL citrate 100 MCG/2 ML VIAL IV PRN (07:38)
[2018-11-20] MEDS ORDERED: ePHEDrine sulfate 50 MG/ML AMP IV PRN (07:38)
[2018-11-20] MEDS ORDERED: PHENYLEPHRINE HCL 10 MG/ML VIAL ONE (08:28)
--- NOTE | 2018-11-20 09:01 | Operative Report ---
Post Operative Report Pre & Post Diagnosis Operation Date: 11/20/18 07:00 Pre-Op Diagnosis: Left Shoulder Degenerative Joint Disease Post-Op Diagnosis: Left Shoulder Degenerative Joint Disease Procedure Operation Date: 11/20/18 07:00 Actual Procedures p Left Reverse Total Shoulder Arthroplasty(Left) - Roberth Ortiz DO Surgeon Roberth Ortiz DO System Support Specialist Roberth [place] PAC Estimated Blood Loss 250 Findings Consistent with Post-Op Diagnosis Specimens Left humeral head Complications none Disposition Disposition: Recovery Room Indications Patient is a pleasant 77-year-old female who is been dealing with chronic increasing left shoulder pain. She has severe rheumatoid arthritis of the left shoulder. X-rays and clinical examination were were diagnostic for rheumatoid arthritis with severe glenoid bone loss. After failing conservative treatment, she elected proceed with a reverse left shoulder arthroplasty. Description of Procedure Implants used: I used a [employer] Comprehensive reverse total shoulder arthroplasty system with a size 11 press fit mini humeral stem, a standard humeral tray and a standard humeral bearing, a 25 mm mini baseplate with a large augment with a 6.5 mm central screw and superior, posterior, and inferior locking screws, and a size 36 eccentric glenosphere. The patient arrived at [facility] for the above procedure. There were seen in the preoperative holding area and the operative extremity was identified and signed. They were given a preoperative antibiotic and an interscalene nerve block. They were taken back to the operating room, laid on table in supine position, and put under general anesthesia. They were then put into the beachchair position. The shoulder was then prepped and draped in sterile fashion. A timeout was done and the patient in the operative extremity was properly identified. A deltopectoral approach was used. Dissection was taken down through the fascia and the deltoid was retracted laterally and the conjoined tendon was retracted medially. The anterior shoulder was exposed. The long head of the biceps tendon was tenodesed to the upper border of the pectoralis major. The subscapularis was then released off the lesser tuberosity with a centimeter of cuff tissue remaining. The inferior capsule was released and the humeral head was dislocated. A canal finding reamer was sent down the center of the humeral canal. S equential reaming up to a size 11 reamer was done. Off that reamer, a proximal humeral resection guide was placed. The proximal humerus was resected at 135 of inclination and 25 of retroversion. Osteophytes were then removed and the glenoid was exposed. Time was spent doing a complete capsular and labral release. A [employer] signature guide was then attached onto the anterior rim of the glenoid. A 3.2 mm Steinmann pin was then placed in the reverse total shoulder arthroplasty hole. The glenoid baseplate was then reamed. Additional reamings were done to fit a large augmented baseplate. The final size 25 mm large augment baseplate was then impacted in the place. A 6.5 mm central screw was then placed followed by superior and inferior locking screws. A 36 mm eccentric glenoid sphere was then impacted into place. Surrounding soft tissues were then injected with 100 cc an orthopedic pain control cocktail. The proximal humerus was then exposed. Sequential broaching of the humerus up to a size 11 broach was done. Off that broach a standard humeral tray was trialed. The shoulder was then reduced, brought through a full range of motion and felt to be stable. The shoulder was then dislocated and the broach was removed. The final size 11 mini press-fit humeral stem was then impacted into place. A standard humeral bearing was then snapped onto a standard humeral tray and the ring-lock mechanism was engaged. The humeral tray was then impacted onto the humeral stem. The shoulder was once again reduced, brought through a full range of motion and felt to be stable. The subscapularis was not repaired. By the time I lateralized the shoulder and gave her appropriate external rotation the subscapularis was too contracted to be repaired. A dilute betadyne lavage was then done for 3 minutes. The joint was then irrigated with normal saline solution. Hemostasis was obtained. The skin was then closed with 2-0 Vicryl, 3-0V lock suture, and jami. A soft dressing and a regular arm sling was placed. The patient was then extubated and transferred to a hospital bed. They were taken to the postanesthesia care unit in stable condition. They tolerated the procedure well. I attest to the content of the Intraoperative Record and any orders documented therein. Any exceptions are noted below.
--- NOTE | 2018-11-20 09:53 | XRay Report ---
XR shoulder LT min 2V routine CLINICAL HISTORY: Post shoulder surgery postoperative COMPARISON: 01/09/2015 DISCUSSION: Anatomic alignment post total left shoulder arthroplasty. Good contact between prosthetic and underlying bone. Expected soft tissue postoperative change IMPRESSION: Anatomic alignment post total left shoulder arthroplasty. The above report was generated using voice recognition software. It may contain grammatical, syntax or spelling errors. Electronically signed by: Emre Decker M.D. 11/20/2018 9:51 AM
[2018-11-20] MEDS ORDERED: METOCLOPRAMIDE HCL INJ 5 MG/ML 2 ML VIAL IV PRN (10:42)
[2018-11-20] MEDS ORDERED: BISACODYL 10 MG SUPP PR PRN (10:42)
[2018-11-20] MEDS ORDERED: NITROGLYCERIN 0.3 MG/1 TAB 100 TAB BTL SL PRN (10:42)
[2018-11-20] MEDS ORDERED: NALOXONE HCL 0.4 MG/1 ML VIAL/CARP IV PRN (10:42)
[2018-11-20] MEDS ORDERED: HYDROmorphone INJ 0.5 MG/0.5 ML SYR IV PRN (10:42)
[2018-11-20] MEDS ORDERED: MAGNESIUM HYDROXIDE SUSP 30 ML UDC PO PRN (10:42)
[2018-11-20] MEDS: SODIUM CHLORIDE 0.9% 1000ML 1,000 ML IV SCH ×2 (12:07→21:43)
[2018-11-20] MEDS: KETOROLAC TROMETHAMINE 15 MG/ML VIAL IV SCH ×3 (12:42→23:03)
[2018-11-20] MEDS: ACETAMINOPHEN 500 MG TAB PO SCH ×2 (13:45→21:43)
[2018-11-20] MEDS: CEFAZOLIN 2000MG 2,000 MG/15 ML SYR IV SCH ×2 (14:03→22:06)
[2018-11-20] MEDS: TRAMADOL HCL 50 MG TABLET PO PRN (15:15)
--- NOTE | 2018-11-20 19:14 | Anesthesiology Progress Note ---
Date of Service November 20, 2018 Anesthesia Post Procedure Vital Signs Vital Signs: Temp Pulse Pulse Resp BP Pulse Ox 11/20/18 15:21 36.3 C L 85 16 99/63 L 94 11/20/18 13:16 36.5 C 84 15 100/61 92 11/20/18 12:26 82 18 114/70 93 11/20/18 11:34 36.4 C L 76 15 91/56 L 92 11/20/18 10:57 36.4 C L 72 14 108/61 91 11/20/18 10:30 36.4 C L 74 16 115/69 94 11/20/18 10:20 79 16 109/63 97 11/20/18 10:10 76 18 111/64 98 11/20/18 10:00 36.7 C 76 19 111/66 98 11/20/18 09:50 78 20 119/69 99 11/20/18 09:40 72 18 122/68 99 11/20/18 09:30 73 17 149/67 H 97 11/20/18 09:22 36.0 C L 77 13 138/65 100 11/20/18 05:31 36.5 C 57 L 18 149/71 H 96 Pain Intensity Neck: Pain Intensity: 5 Notes Mental Status: alert / awake / arousable Patient Amnestic to Procedure: Yes Nausea / Vomiting: adequately controlled Pain: adequately controlled Airway Patency, RR, SpO2: stable & adequate BP & HR: stable & adequate Hydration State: stable & adequate Anesthetic Complications: no major complications apparent and Pt Satisfied with anesthetic care
[2018-11-20] MEDS: DOCUSATE SODIUM 100 MG CAP PO SCH (20:12)
[2018-11-20] MEDS: PANTOprazole 40 MG TAB PO SCH (20:12)
[2018-11-20] MEDS ORDERED: SENNA 8.6 MG TAB PO SCH (21:00)
[2018-11-21] MEDS: TRAMADOL HCL 50 MG TABLET PO PRN (04:38)
[2018-11-21] MEDS: ACETAMINOPHEN 500 MG TAB PO SCH (05:34)
[2018-11-21] MEDS: KETOROLAC TROMETHAMINE 15 MG/ML VIAL IV SCH ×2 (05:34→12:54)
[2018-11-21 06:12] LABS: Basophils # (auto) 0.02 K/uL (0-0.2); Basophils % (auto) 0.3 %; Eosinophils # (auto) 0.02 K/uL (0-0.5); Eosinophils % (auto) 0.3 %; Hematocrit (blood only) 29.7 % (37-47); Hemoglobin 9.9 g/dL (12.0-16.0); Immature Granulocytes # (auto) 0.02 K/uL (0.00-0.02); Immature Granulocytes % (auto) 0.3 %; Lymphocytes # (auto) 1.15 K/uL (1.2-3.4); Lymphocytes % (auto) 14.4 %; Mean Corpuscular Hgb Conc 33.3 g/dL (32-36); Mean Platelet Volume 8.5 fL (7.4-10.4); Monocytes # (auto) 0.68 K/uL (0.11-0.59); Monocytes % (auto) 8.5 %; Neutrophils % (auto) 76.2 %; Platelet Count 136 K/uL (130-400); RDW Coefficient of Variation 13.4 % (11.5-14.5); RDW Standard Deviation 48.4 fL (36.4-46.3); White Blood Count 7.99 K/uL (4.8-10.8)
[2018-11-21] MEDS ORDERED: LEVOTHYROXINE SODIUM 75 MCG TABLET PO SCH (06:30)
[2018-11-21 06:39] LABS: BUN Creatinine Ratio 25.8 (10-20); Calcium 8.5 mg/dl (8.5-10.1); Est GFR (Non-African American) 61.3; Potassium 3.7 mmol/L (3.5-5.1)
--- NOTE | 2018-11-21 07:36 | Orthopedic Progress Note ---
Date of Service November 21, 2018 Assessment & Plan (1) Rheumatoid arthritis involving shoulder: Overall she is doing fairly well. She is having some pain in the shoulder but will try to control that with some hydrocodone. She will be seen by physical therapy this morning for range of motion exercises. As long as she is doing well she can be discharged home later this morning. She will get energy physical therapy upon discharge. She will follow-up with orthopedics in 2 weeks. Present on Admission?: Yes Subjective Patient was seen and examined at bedside this morning. Overall she is having some pain in the shoulder. A little bit more sore than expected. She is having little bit of back pain as well. She had some difficulty sleep last night. She has no other complaints. Physical Exam Musculoskeletal: On physical examination of the left shoulder, the dressing is clean and dry. Her radial, median, and ulnar nerves are checked and intact. Her axillary nerve is not checked yet. She is wearing her sling as instructed. Results & Data Vital Signs (Past 12 Hours) Vital Signs Temp Pulse Pulse Resp BP Pulse Ox 11/21/18 07:26 36.8 C 76 16 99/59 L 91 11/21/18 03:08 36.8 C 76 16 118/78 93 11/20/18 23:11 36.7 C 76 14 110/68 93 11/20/18 20:39 36.8 C 79 18 102/65 91 Laboratory Results H & H 10/20/18 11/21/18 Range/Units 12:55 05:54 Hgb 13.4 9.9 L (12.0-16.0) g/dL Hct 39.1 29.7 L (37-47) % Coagulation 10/20/18 Range/Units 12:55 INR 1.1 (0.9-1.1) Diagnostic Findings Postoperative x-rays of the left shoulder show the prosthesis to be in anatomic alignment without any evidence of fracture, dislocation, or loosening.
--- NOTE | 2018-11-21 07:37 | Discharge Summary ---
Date of Service November 21, 2018 Admission HPI Per Admitting Provider Patient is a pleasant 77-year-old female who is been dealing with a long history of increasing left shoulder pain. 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 I have given her multiple injections. Unfortunately injections are no longer helping. She elected to proceed with reverse left shoulder arthroplasty. Specialty Data Orthopedic H & H 10/20/18 11/21/18 Range/Units 12:55 05:54 Hgb 13.4 9.9 L (12.0-16.0) g/dL Hct 39.1 29.7 L (37-47) % Coagulation 10/20/18 Range/Units 12:55 INR 1.1 (0.9-1.1) Discharge Data Procedures Performed Operation Date: 11/20/18 07:00 Actual Procedures p Left Reverse Total Shoulder Arthroplasty(Left) - Roberth Ortiz DO Hospital Course (1) Rheumatoid arthritis involving shoulder: On November 20, 2018 Romina arrived at [facility] and underwent a reverse left shoulder arthroplasty without complications. She had a general anesthetic and a left interscalene nerve block. Postoperatively she was placed in an arm sling and discharged to general orthopedic floors. Her hospital course was uneventful. On postop day #1 her H&H was stable and her pain was fairly well controlled. She was seen by physical therapy and able to do some range of motion exercises. She was subsequently discharged home with [facility]. She will follow-up with orthopedics in 2 weeks. Discharge Instructions Home Medications Medication Instructions Recorded Confirmed aluminum hydrox-magnesium carb 0 ml PO DIRECTED PRN 07/15/18 11/20/18 [Gaviscon] armodafinil [Nuvigil] 250 mg PO QAM 07/15/18 11/20/18 biotin 5,000 mcg PO TID 07/15/18 11/20/18 calcium-vitamin D3-vitamin K 1 tab PO BID 07/15/18 11/20/18 [Viactiv] conjugated estrogens [Premarin] 0.5 g VAGINAL 3XWK 07/15/18 11/20/18 cyanocobalamin (vitamin B-12) 1,000 mcg PO DAILY 07/15/18 11/20/18 [Vitamin B-12] diclofenac sodium 2 g TOPICAL QID PRN 07/15/18 11/20/18 duloxetine 30 mg PO QAM 07/15/18 11/20/18 epinephrine [EpiPen] 0.3 mg IM Q3H PRN 07/15/18 11/20/18 lansoprazole 30 mg PO BID 07/15/18 11/20/18 levothyroxine [Synthroid] 75 mcg PO QAM 07/15/18 11/20/18 losartan-hydrochlorothiazide 1 tab PO QAM 07/15/18 11/20/18 meclizine 25 mg PO TID PRN 07/15/18 11/20/18 nitroglycerin [Nitrostat] 0.3 mg SUBLINGUAL DIRECTED PRN 07/15/18 11/20/18 oxybutynin chloride 10 mg PO QAM 07/15/18 11/20/18 polyethylene glycol 3350 [Miralax] 17 g PO DAILY 07/15/18 11/20/18 ranitidine HCl [Zantac] 150 mg PO Q12 07/15/18 11/20/18 sucralfate 10 ml PO QID PRN 07/15/18 11/20/18 tizanidine 4 mg PO TID PRN 07/15/18 11/20/18 tofacitinib [Xeljanz] 5 mg PO BID 07/15/18 11/20/18 Spring 3 1 dose PO DAILY 10/20/18 11/20/18 cletpmar-luq-ksnv-FA-lutein 1 tab PO DAILY 10/20/18 11/20/18 [Centrum Silver Women] Previous Rx's Medication Instructions Recorded hydrocodone-acetaminophen 1 tab PO Q6H PRN #30 tab 11/21/18
[2018-11-21] MEDS ORDERED: HYDROCODONE/ACETAMINOPHEN 10/325 TAB PO PRN (07:38)
[2018-11-21] MEDS ORDERED: HYDROCODONE/ACETAMINOPHEN 10/325 TAB PO ONE (07:49)
[2018-11-21] MEDS ORDERED: MULTIVITAMIN TAB PO SCH (09:00)
[2018-11-21] MEDS ORDERED: LOSARTAN/HCTZ 50/12.5MG TAB PO SCH (09:00)
[2018-11-21] MEDS ORDERED: OXYBUTYNIN CHLORIDE XL 5 MG TABCR PO SCH (09:00)
[2018-11-21] MEDS ORDERED: DULOXETINE HCL 30 MG CAP PO SCH (09:00)
[2018-11-21] MEDS: DOCUSATE SODIUM 100 MG CAP PO SCH (09:24)
[2018-11-21] MEDS: PANTOprazole 40 MG TAB PO SCH (09:25)
--- NOTE | 2018-11-21 10:06 | Anesthesiology Progress Note ---
Date of Service November 21, 2018 Anesthesia Post Procedure Vital Signs Vital Signs: Temp Pulse Pulse Resp BP Pulse Ox 11/21/18 07:26 36.8 C 76 16 99/59 L 91 11/21/18 03:08 36.8 C 76 16 118/78 93 11/20/18 23:11 36.7 C 76 14 110/68 93 11/20/18 20:39 36.8 C 79 18 102/65 91 11/20/18 15:21 36.3 C L 85 16 99/63 L 94 11/20/18 13:16 36.5 C 84 15 100/61 92 11/20/18 12:26 82 18 114/70 93 11/20/18 11:34 36.4 C L 76 15 91/56 L 92 11/20/18 10:57 36.4 C L 72 14 108/61 91 11/20/18 10:30 36.4 C L 74 16 115/69 94 11/20/18 10:20 79 16 109/63 97 11/20/18 10:10 76 18 111/64 98 Pain Intensity Neck: Pain Intensity: 7 Notes Mental Status: alert / awake / arousable and participated in evaluation Nausea / Vomiting: adequately controlled Pain: adequately controlled Airway Patency, RR, SpO2: stable & adequate BP & HR: stable & adequate Hydration State: stable & adequate
[2018-11-22] MEDS ORDERED: PREMARIN VAG CRM 14 APPLN/30 GM TUBE PV SCH (09:00)
--- NOTE | 2018-11-24 11:54 | Coding Query ---
CODING QUERY To promote full compliance with coding requirements relating to patient care, provider participation is requested in all cases of chief medical technologist uncertainty. Please assist us with the question(s) below: Coding Question(s): The patient was diagnosed with rheumatoid arthritis of the left shoulder. Please specify type of RA below: Physician's Response(s): ( ) JUVENILE RA of L shoulder ( ) SERONEGATIVE RA of L shoulder ( ) SEROPOSITIVE RA of L shoulder ( ) OTHER RA of L shoulder Please specify: ( X ) UNSPECIFIED RA of L shoulder Thank you Danna Jackson Principal Diagnosis: "that condition established after study, to be chiefly responsible for occasioning the admission of the patient to the hospital for care." Co-Existing Principal Diagnosis: "when two or more diagnoses equally meet the criteria for principal diagnosis as determined by the circumstances of admission, diagnostic work up, and/or therapy provided, and the Alphabetic Index, Tabular List, or another coding guideline does not provide sequencing direction, any one of the diagnoses may be sequenced first." "When the physician has documented what appears to be a current diagnosis in the body of the record, but has not included the diagnosis in the final diagnostic statement, the physician should be asked whether the diagnosis should be added." (Source [facility]oding [facility] 2 QTR90. p3-4) FUNMI
== END 2018-11-21 13:44 | disposition home or self-care (01) | DRG 483 ==
LOC: ASU 04:49 → 3E 10:32

== ENCOUNTER 2020-11-02 12:05 | Observation (INO) ==
[2020-11-02] MEDS ORDERED: NITROGLYCERIN SL 0.4 MG/TAB TAB SL PRN (12:44)
[2020-11-02] MEDS ORDERED: SODIUM CHLORIDE 0.9% 500 ML IV STA (12:44)
[2020-11-02 13:04] LABS: Basophils # (auto) 0.02 K/uL (0-0.2); Basophils % (auto) 0.2 %; Eosinophils # (auto) 0.06 K/uL (0-0.5); Eosinophils % (auto) 0.7 %; Hematocrit (blood only) 34.6 % (37-47); Hemoglobin 11.9 g/dL (12.0-16.0); Immature Granulocytes # (auto) 0.01 K/uL (0.00-0.02); Immature Granulocytes % (auto) 0.1 %; Lymphocytes # (auto) 0.86 K/uL (1.2-3.4); Lymphocytes % (auto) 9.5 %; Mean Corpuscular Hemoglobin 31.6 pg (25-34); Mean Corpuscular Hgb Conc 34.4 g/dL (32-36); Mean Platelet Volume 9.3 fL (7.4-10.4); Monocytes # (auto) 0.68 K/uL (0.11-0.59); Monocytes % (auto) 7.5 %; Neutrophils # (auto) 7.45 K/uL (1.4-6.5); Platelet Count 191 K/uL (130-400); RDW Coefficient of Variation 14.7 % (11.5-14.5); RDW Standard Deviation 50.3 fL (36.4-46.3); Red Blood Count 3.76 M/uL (4.2-5.4); White Blood Count 9.08 K/uL (4.8-10.8)
[2020-11-02 13:07] LABS: Prothrombin Time 10.3 Seconds (9.0-12.0)
[2020-11-02 13:10] LABS: Alanine Aminotransferase 23 U/L (12-78); Albumin Level 3.2 gm/dl (3.4-5.0); Aspartate Aminotransferase 28 U/L (15-37); BUN Creatinine Ratio 27.7 (10-20); Blood Urea Nitrogen 21 mg/dl (7-18); Calcium 9.6 mg/dl (8.5-10.1); Carbon Dioxide 31 mmol/L (21-32); Chloride 108 mmol/L (98-107); Creatinine Clr Calc Pharmacy 43.9 ml/min; Est GFR (African American) 86.3; Est GFR (Non-African American) 74.5; Glucose 86 mg/dl (70-99); Lipase 105 U/L (73-393); Potassium 3.6 mmol/L (3.5-5.1); Sodium 142 mmol/L (136-145)
[2020-11-02 13:15] LABS: Albumin Globulin Ratio 1.1 (0.9-2); Alkaline Phosphatase 60 U/L (45-117); Bilirubin,Total 0.4 mg/dl (0.2-1); Globulin 2.9 gm/dl (2.5-4.0); Total Protein 6.1 gm/dl (6.4-8.2); Troponin I < 0.015 ng/ml (0-0.045)
--- NOTE | 2020-11-02 13:23 | XRay Report ---
XR chest 1V portable HISTORY: 79 years-old Female Chest Pain acute atypical chest pain COMPARISON: 07/15/2020 TECHNIQUE: Portable AP view of the chest FINDINGS: Cardiomegaly. No pneumothorax, pleural effusion, airspace consolidation or overt pulmonary edema. 1.3 cm nodular opacity of the right lung base redemonstrated. Severe right shoulder osteoarthritis. Reve rse left shoulder total joint arthroplasty. Spinal stimulator leads in place with imaged leads appear ing intact. Surgical clips project over the abdominal left upper quadrant. IMPRESSION: 1. Cardiomegaly without acute process. 2. 1.3 cm nodular opacity of the right lung base is unchanged and likely secondary to summation densi ty. A pulmonary nodule could appear similarly. ACT 112: Negative or not required by law. The above report was generated using voice recognition software. It may contain grammatical, syntax o r spelling errors. Electronically signed by: He Fitzgerald M.D. 11/02/2020 1:22 PM
--- NOTE | 2020-11-02 14:09 | Emergency Department Note ---
Impression & Plan Chest pain, Abdominal pain, Weakness, Closed pelvic ring fracture, Left sided colitis ED Provider Note Provider: Chandu Ibrahim MD DATE OF SERVICE: 11/02/2020 CHIEF COMPLAINT: Chest pressure, abdominal pain, shaky, diarrhea HISTORY OF PRESENT ILLNESS: Patient is a 79-year-old female with a history of fibromyalgia, hypothyroidism, rheumatoid arthritis on Humira, GERD, concussion, and abdominal pain presenting to the ambulance from home today reporting the onset of fatigue and weakness over the past several weeks. States she was quite shaky this morning intermittently. Since Friday 4 days ago states she has been doing worse and had several dark black stools. Yesterday had indigestion today developed some midsternal chest pain with radiation to left side of the chest with associated nausea. Took nitro at home with minimal improvement of symptoms. No vomiting reported. Had profuse nonbloody diarrhea today. Patient received additional nitro and aspirin for EMS prior to arrival and states the pains improved some now 4 out of 10. Has chronic back issues that she states is unchanged. Reports a little bit of numbness due to blood pressure cuff in the left arm but this is new since the blood pressure cuff been put on here. Denies any numbness in the face or lower extremities. Denies significant dizziness. Patient states he has had some chronic abdominal issues over the past month or so and has followed with outpatient GI. States has had some left-sided abdominal pain in the left lower quadrant this is been fairly persistent. States she is normally really energetic but over the last several weeks to months has had a decline. REVIEW OF SYSTEMS: A total of 10 review of systems was obtained and negative except as stated above in the HPI. PAST MEDICAL HISTORY: As noted above as well as a history of paroxysmal A. fib MEDICATIONS: Reviewed home medication list, not on anticoagulation SOCIAL HISTORY: Lives at home with PHYSICAL EXAM: GENERAL: alert and oriented in no acute distress on stretcher Head: normocephalic and atraumatic EYES: No injection, discharge or icterus. NECK: Trachea midline. LUNGS: Airway patent. No retractions. Breath sounds clear with good air entry bilaterally. HEART: Regular rate and rhythm. No chest wall tenderness ABDOMEN: Soft with some mild left abdominal and left lower quadrant tenderness without peritonitis. Rectal: With nurse steel erecting pusher rectal completed Hemoccult negative with some mucousy brown stool. No hemorrhoid appreciated. No bright red blood per rectum. SKIN: Acyanotic, warm, dry, without rashes EXTREMITIES: Without swelling, tenderness or deformity NEUROLOGICAL: No aphasia. No facial droop or slurred speech. Normal strength and tone in the extremities. Mildly decreased sensation in the left hand initially that resolved after the blood pressure cuff was moved. EK bpm normal sinus rhythm. No PVC or PAC. No acute ST segment elevation or depression with a normal QTC. CONTINUOUS CARDIAC MONITORING: was ordered and showed a heart rate of 66 bpm in normal sinus rhythm Patient's laboratory studies and imaging reviewed. Differential includes Infection, dehydration, metabolic abnormality, hypo/hyperglycemia, electrolyte disturbance, anemia, hypoxia, cardiac sources, intracerebral event, toxicologic, neurologic, as well as other pathologies. IMPRESSION/MEDICAL DECISION MAKING: Patient presents with several different complaints. Patient denies fever but does report some shakiness. Reports chest pressure. EKG without significant change and initial troponin here is negative. Pressure in symptoms resolved with additional nitroglycerin here. Nausea resolved with Zofran. Some left- sided abdominal tenderness a CT scan was completed the abdomen pelvis. Denies significant shortness of breath. Covid test was sent. Does not seem consistent with acute pancreatitis or hepatitis. Anemia of 11.9 noted today down from recent in July does report some dark stools. No significant leukocytosis. Doubt sepsis at this point. Hemoccult was negative today on exam and lower suspicion for significant acute upper GI bleed.. Sent for CT scan of the abdomen pelvis with findings of some mild left-sided colitis and subacute pelvic fracture.. Given a small IV fluid bolus. Chest pain and pressure is resolved but given her continued lower abdominal and hip pain given small amount of fentanyl here. Updated both her and the daughter regarding the CT scan report findings. Denies urinary symptoms but urine sample is pending. Unsure the exact cause of some of her shakiness question is could be related to the colitis or possibly a UTI but will defer antibiotics to hospitalist team pending UA and the colitis is not that impressive. This could very well be viral. Rapid Covid test was negative. She denies a significant cardiac history presentation is somewhat concerning here for that with her age and comorbidities. Given this her somewhat worsened anemia and worsening fatigue discussed the patient further monitoring here at the hospital and the hospitalist was contacted. DIAGNOSIS: Chest pain, abdominal pain, weakness, closed pelvic ring fracture, left-sided colitis DISPOSITION: Hospitalist will evaluate Patient was agreeable with this plan. Past Med/Surg History Medical History (Updated 11/02/20 @ 14:34 by Chandu Ibrahim M.D.) Age related osteoporosis Dyslipidemia Fatigue Per 03/2018 endocrine eval, felt to be Subacute thyroiditis likely in thyrotoxic phase. Pt still experiencing fatigue, is going to seek second opinion. Fibromyalgia GERD (gastroesophageal reflux disease) History of concussion MAY 2018 - 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 GETS HEADACHES FROM History of skin cancer Hx of sleep apnea COULDN'T TOLERATE CPAP/REPEAT TESTING SHOWED "DIDN'T NEED" CPAP Hypertension Osteoarthritis Rheumatoid arthritis On Xeljanz Scoliosis Trouble swallowing With specific foods (steak), 2/2 hiatal hernia repair. If food gets stuck she gets chest pain and was given Nitroglycerin for this. Urinary incontinence Surgical History History of appendectomy History of bilateral cataract extraction History of bladder suspension procedure History of cardiac cath 4 YRS AGO..CHEST PAIN...ALTOONA - NO FINDINGS...HIATAL HERNIA DX History of colonoscopy History of endoscopy DILATION OF ESOPHAGUS History of eye surgery LASER History of laparoscopic cholecystectomy History of left knee replacement History of lumbar fusion History of partial colectomy History of partial hysterectomy History of rectocele REPAIR WITH MESH AND MESH SINCE REMOVED History of repair of hiatal hernia History of repair of right rotator cuff History of right knee surgery BRUSA SAC REMOVED History of total left knee replacement History of urologic surgery BLADDER TAC S/P lumbar fusion S/P repair of paraesophageal hernia Family History Sister Colorectal cancer Hypertension Mother Stroke Hypertension Other No pertinent family history Social History Smoking Status: Never smoker Hx Alcohol Use: No Hx Substance Use: No Preferred Language: Com[place]an Communication Ability: Effective 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 Beliefs That Will Affect Care: None marital status: Current Living Situation: Spouse Feels Safe at Home: Yes Assistive Devices: Glasses Allergies Allergies Allergy/AdvReac Type Severity Reaction Status Date / Time bee venom protein (honey bee) Allergy Unknown "SWELLED Verified 11/02/20 13:30 ALL UP" Iodinated Contrast Media Allergy Unknown PASSED Verified 11/02/20 13:30 OUT-BODY FELT COLD ALL OVER adalimumab [From Humira] AdvReac Unknown Verified 11/02/20 13:30 atorvastatin AdvReac Unknown PAIN IN Verified 11/02/20 13:30 JOINTS gabapentin AdvReac Unknown HORRIBLE Verified 11/02/20 13:30 HEADACHES rosuvastatin [From Crestor] AdvReac Unknown PAIN IN Verified 11/02/20 13:30 JOINTS shellfish derived AdvReac Unknown Headache Verified 11/02/20 13:30 Atorvastatin Calcium TABS AdvReac joint pain Uncoded 11/02/20 13:30 Home Meds Home Medications Medication Instructions Recorded Confirmed Gaviscon 2 ml PO DIRECTED PRN 07/15/18 11/02/20 armodafinil [Nuvigil] 250 mg PO QAM 07/15/18 11/02/20 losartan-hydrochlorothiazide 1 tab PO QAM 07/15/18 11/02/20 polyethylene glycol 3350 [Miralax] 17 g PO DAILY PRN 07/15/18 11/02/20 Centrum Silver Women 1 tab PO QAM 10/20/18 11/02/20 calcium-vitamin D3-vitamin K 2 tab PO DAILY 03/05/19 11/02/20 [Viactiv] lorazepam 0.5 mg PO QAM PRN 03/05/19 11/02/20 diphenhydramine HCl 25 mg capsule 50 mg PO HS PRN 03/30/19 11/02/20 adalimumab [Humira] 40 mg SUBCUT WK 11/02/20 11/02/20 cholecalciferol (vitamin D3) 1,000 unit PO DAILY 11/02/20 11/02/20 [Vitamin D3] cyanocobalamin (vitamin B-12) 500 mcg PO DAILY 11/02/20 11/02/20 [Vitamin B-12] duloxetine 30 mg PO QAM 11/02/20 11/02/20 hydrocodone-acetaminophen 1 tab PO Q4H PRN 11/02/20 11/02/20 levothyroxine 75 mcg PO QAM 11/02/20 11/02/20 pantoprazole 40 mg PO PM 11/02/20 11/02/20 vitamins A,C,E-iuli-jaicay 2 cap PO DAILY 11/02/20 11/02/20 [PreserVision AREDS] zinc 50 mg PO DAILY 11/02/20 11/02/20 Results & Data (ED) Vital Signs Vital Signs - 24 hr 11/02/20 12:16 11/02/20 13:21 Temperature 36.9 C Temperature Source Oral Pulse Rate 67 Pulse Rate [Finger] 60 Pulse Rhythm Regular Pulse Strength Normal Respiratory Rate 20 17 Respiratory Effort / Characteristics Non-Labored Respiratory Depth Normal Respiratory Pattern Regular Blood Pressure 113/69 Blood Pressure [Right Arm] 127/64 Blood Pressure Mean 83 Blood Pressure Mean [Right Arm] 85 Pulse Oximetry 92 95 Oxygen Delivery Method Room Air Room Air Sepsis Recent Fever Within 48 Hours No Sepsis New/Unexplained Change in Mental Status N/A Sepsis Action Taken by Nursing No Action Required Laboratory Data Result diagrams: 11/02/20 12:17 11/02/20 12:17 Lab Results 11/02/20 11/02/20 11/02/20 Range/Units 12:17 12:17 12:17 WBC 9.08 (4.8-10.8) K/uL RBC 3.76 L (4.2-5.4) M/uL Hgb 11.9 L (12.0-16.0) g/dL Hct 34.6 L (37-47) % MCV 92.0 (80-100) fL MCH 31.6 (25-34) pg MCHC 34.4 (32-36) g/dL RDW Std Deviation 50.3 H (36.4-46.3) fL RDW Coeff of Kim 14.7 H (11.5-14.5) % Plt Count 191 (130-400) K/uL MPV 9.3 (7.4-10.4) fL Immature Gran % (Auto) 0.1 % Neut % (Auto) 82.0 % Lymph % (Auto) 9.5 % [place] % (Auto) 7.5 % Eos % (Auto) 0.7 % Baso % (Auto) 0.2 % Neut # (Auto) 7.45 H (1.4-6.5) K/uL Lymph # (Auto) 0.86 L (1.2-3.4) K/uL [place] # (Auto) 0.68 H (0.11-0.59) K/uL Eos # (Auto) 0.06 (0-0.5) K/uL Baso # (Auto) 0.02 (0-0.2) K/uL Immature Gran # (Auto) 0.01 (0.00-0.02) K/uL PT 10.3 (9.0-12.0) Seconds INR 1.0 (0.9-1.1) Sodium 142 (136-145) mmol/L Potassium 3.6 (3.5-5.1) mmol/L Chloride 108 H (98-107) mmol/L Carbon Dioxide 31 (21-32) mmol/L Anion Gap 3.0 (3-11) BUN 21 H (7-18) mg/dl Creatinine 0.77 (0.6-1.2) mg/dl Est Cr Clr Drug Dosing 43.9 ml/min Est GFR ( Amer) 86.3 Est GFR (Non-Af Amer) 74.5 BUN/Creatinine Ratio 27.7 H (10-20) Glucose 86 (70-99) mg/dl Calcium 9.6 (8.5-10.1) mg/dl Total Bilirubin 0.4 (0.2-1) mg/dl AST 28 (15-37) U/L ALT 23 (12-78) U/L Alkaline Phosphatase 60 (45-117) U/L Troponin I < 0.015 (0-0.045) ng/ml Total Protein 6.1 L (6.4-8.2) gm/dl Albumin 3.2 L (3.4-5.0) gm/dl Globulin 2.9 (2.5-4.0) gm/dl Albumin/Globulin Ratio 1.1 (0.9-2) Lipase 105 (73-393) U/L COVID-19 Eval Order SARS-CoV-2 (PCR) (Negative) Influenza Type A (PCR) (Neg) Influenza Type B (PCR) (Neg) RSV (RT-PCR) (Neg) 11/02/20 11/02/20 Range/Units 13:13 13:13 WBC (4.8-10.8) K/uL RBC (4.2-5.4) M/uL Hgb (12.0-16.0) g/dL Hct (37-47) % MCV (80-100) fL MCH (25-34) pg MCHC (32-36) g/dL RDW Std Deviation (36.4-46.3) fL RDW Coeff of Kim (11.5-14.5) % Plt Count (130-400) K/uL MPV (7.4-10.4) fL Immature Gran % (Auto) % Neut % (Auto) % Lymph % (Auto) % [place] % (Auto) % Eos % (Auto) % Baso % (Auto) % Neut # (Auto) (1.4-6.5) K/uL Lymph # (Auto) (1.2-3.4) K/uL [place] # (Auto) (0.11-0.59) K/uL Eos # (Auto) (0-0.5) K/uL Baso # (Auto) (0-0.2) K/uL Immature Gran # (Auto) (0.00-0.02) K/uL PT (9.0-12.0) Seconds INR (0.9-1.1) Sodium (136-145) mmol/L Potassium (3.5-5.1) mmol/L Chloride (98-107) mmol/L Carbon Dioxide (21-32) mmol/L Anion Gap (3-11) BUN (7-18) mg/dl Creatinine (0.6-1.2) mg/dl Est Cr Clr Drug Dosing ml/min Est GFR ( Amer) Est GFR (Non-Af Amer) BUN/Creatinine Ratio (10-20) Glucose (70-99) mg/dl Calcium (8.5-10.1) mg/dl Total Bilirubin (0.2-1) mg/dl AST (15-37) U/L ALT (12-78) U/L Alkaline Phosphatase (45-117) U/L Troponin I (0-0.045) ng/ml Total Protein (6.4-8.2) gm/dl Albumin (3.4-5.0) gm/dl Globulin (2.5-4.0) gm/dl Albumin/Globulin Ratio (0.9-2) Lipase (73-393) U/L COVID-19 Eval Order CovFluRsv at [facility] SARS-CoV-2 (PCR) NEGATIVE (Negative) Influenza Type A (PCR) Negative (Neg) Influenza Type B (PCR) Negative (Neg) RSV (RT-PCR) Negative (Neg) Administered Medications Nitroglycerin (Nitroglycerin Sl 0.4 Mg/Tab Tab) 0.4 mg SL UD PRN PRN Reason: Chest Pain Stop: 12/02/20 12:43 Last Admin: 11/02/20 13:18 Dose: 0.4 mg Documented by: [id number] Discontinued Medications Sodium Chloride (Nss) 500 mls @ 999 mls/hr IV .Q31M STA Stop: 11/02/20 13:14 Last Admin: 11/02/20 13:18 Dose: 999 mls/hr Documented by: [id number] Imaging Data Radiologist's Impression: Chest X-Ray 11/02/20 12:44 XR chest 1V portable HISTORY: 79 years-old Female Chest Pain acute atypical chest pain COMPARISON: 07/15/2020 TECHNIQUE: Portable AP view of the chest FINDINGS: Cardiomegaly. No pneumothorax, pleural effusion, airspace consolidation or overt pulmonary edema. 1.3 cm nodular opacity of the right lung base redemonstrated. Severe right shoulder osteoarthritis. Reverse left shoulder total joint arthroplasty. Spinal stimulator leads in place with imaged leads appearing intact. Surgical clips project over the abdominal left upper quadrant. IMPRESSION: 1. Cardiomegaly without acute process. 2. 1.3 cm nodular opacity of the right lung base is unchanged and likely secondary to summation density. A pulmonary nodule could appear similarly. ACT 112: Negative or not required by law. The above report was generated using voice recognition software. It may contain grammatical, syntax or spelling errors. Electronically signed by: He Fitzgerald M.D. 11/02/2020 1:22 PM Abdomen/Pelvis CT 11/02/20 13:36 CT SCAN OF THE ABDOMEN AND PELVIS WITHOUT IV CONTRAST CLINICAL HISTORY: Generalized abdominal pain. COMPARISON STUDY: Abdominal CT dated 09/10/2019. TECHNIQUE: CT scan of the abdomen and pelvis is performed from the lung bases to the proximal femora. Images are reviewed in the axial, sagittal, and coronal planes. IV contrast was not administered for this examination as per the referring clinician. Note that the examination was performed in suboptimal fashion without oral and IV contrast. There is also motion artifact, as well as streak artifact from the left arm which could not be elevated above the abdomen. A dose lowering technique was utilized adhering to the principles of ALARA. CT DOSE: 400.40 mGycm FINDINGS: Lung bases: The heart is enlarged and without pericardial effusion. A fat- containing Bochdalek hernia is seen at the left lung base. There is bibasilar scarring/atelectasis. No airspace consolidation or pleural effusion is identified. There is a small to moderate hiatal hernia. Liver: The unenhanced liver is normal in size, contour, and attenuation. There is no intrahepatic biliary ductal dilatation. Gallbladder: Surgically absent noting clips in the gallbladder fossa. Spleen: Normal in size and attenuation. Pancreas: The unenhanced pancreas is moderately atrophic and grossly unremarkable. Adrenal glands: Unremarkable. Kidneys: The unenhanced kidneys demonstrate cortical atrophy and are without hydronephrosis. There are no renal calculi identified. There is no evidence of contour deforming renal mass lesion. Abdominal vasculature: The abdominal aorta is normal in course and caliber noting mild atherosclerotic calcification. Bowel: Surgical clips are again noted in the stomach. There is mild to moderate sigmoid diverticulosis without CT evidence of acute diverticulitis. No bowel obstruction is identified. There is wall thickening involving the descending and proximal sigmoid colon with faint surrounding infiltration. The appearance. Is consistent with a mild nonspecific colitis. A duodenal diverticulum is noted. The appendix is not identified and reported surgically absent. Peritoneum: There is no intraperitoneal free air or abdominal ascites. Lymphadenopathy: None. Pelvic viscera: The bladder is normal as visualized. The uterus is surgically absent. No adnexal lesion is seen. Skeletal structures: The skeletal structures are osteopenic. There is advanced lumbosacral spondylosis and scoliosis. Spinal fusion is noted at L5-S1. No lytic or blastic lesions are seen. There are subacute/healing right pubic ring fractures. Moderate to advanced arthritic change is seen in the right hip. A neurostimulator device is present in the left gluteal soft tissues. Leads enter the central canal in the lower thoracic region. IMPRESSION: 1. Suboptimal examination without oral and IV contrast. There is also streak and motion artifact. 2. There is evidence of a mild nonspecific colitis of the left colon. 3. There are subacute/healing right pubic ring fractures. 4. Additional findings as above. ACT 112: Negative or not required by law. Electronically signed by: Alexi Avendano M.D. 11/02/2020 2:14 PM Discharge Plan Visit Data Chief Complaint: Chest Pain Stated Complaint: Chest Pain ED Provider: [place],Chandu T Discharge Problem: Chest pain, Abdominal pain, Weakness, Closed pelvic ring fracture, Left sided colitis Patient Disposition: Being Evaluated by Hospitalist Forms Stand Alone Forms: [facility] Prescriptions Prescriptions: No Action Gaviscon 95-358 mg/15 mL Suspension 2 ml PO DIRECTED PRN (Reason: Acid Reflux) RF: 0 polyethylene glycol 3350 [Miralax] 17 gram Powder In Packet 17 g PO DAILY PRN (Reason: Constipation) RF: 0 losartan-hydrochlorothiazide 100-25 mg Tablet 1 tab PO QAM RF: 0 armodafinil [Nuvigil] 250 mg Tablet 250 mg PO QAM RF: 0 Centrum Silver Women 8 mg iron-400 mcg-300 mcg Tablet 1 tab PO QAM RF: 0 lorazepam 0.5 mg Tablet 0.5 mg PO QAM PRN (Reason: anxiety) RF: 0 calcium-vitamin D3-vitamin K [Viactiv] 650 mg-12.5 mcg-40 mcg Tablet,Chewable 2 tab PO DAILY RF: 0 diphenhydramine HCl [Benadryl] 25 mg capsule 50 mg PO HS PRN (Reason: Sleep) RF: 0 levothyroxine 75 mcg Tablet 75 mcg PO QAM RF: 0 pantoprazole 40 mg Tablet,Delayed Release (Dr/Ec) 40 mg PO PM RF: 0 zinc 50 mg Tablet 50 mg PO DAILY RF: 0 Humira 40 mg/0.8 mL Syringe Kit 40 mg SUBCUT WK RF: 0 duloxetine 30 mg Capsule,Delayed Release(Dr/Ec) 30 mg PO QAM RF: 0 cholecalciferol (vitamin D3) [Vitamin D3] 25 mcg (1,000 unit) Tablet 1,000 unit PO DAILY RF: 0 PreserVision AREDS [id number] Capsule 2 cap PO DAILY RF: 0 cyanocobalamin (vitamin B-12) [Vitamin B-12] 500 mcg Lozenge 500 mcg PO DAILY RF: 0 hydrocodone-acetaminophen 10-325 mg tablet 1 tab PO Q6H PRN (Reason: Pain) RF: 0 Referrals Referrals: Acosta Soto MD [Primary Care Provider] - Discharge Problem: Chest pain Qualifiers: Chest pain type: unspecified Qualified Code(s): R07.9 - Chest pain, unspecified Abdominal pain Qualifiers: Abdominal location: lower abdomen, unspecified Qualified Code(s): R10.30 - Lower abdominal pain, unspecified Closed pelvic ring fracture Qualifiers: Encounter type: initial encounter Qualified Code(s): S32.810A - Multiple fractures of pelvis with stable disruption of pelvic ring, initial encounter for closed fracture Left sided colitis Qualifiers: Digestive disease complication type: without complication Qualified Code(s): K51.50 - Left sided colitis without complications
--- NOTE | 2020-11-02 14:15 | CT Scan Report ---
CT SCAN OF THE ABDOMEN AND PELVIS WITHOUT IV CONTRAST CLINICAL HISTORY: Generalized abdominal pain. COMPARISON STUDY: Abdominal CT dated 09/10/2019. TECHNIQUE: CT scan of the abdomen and pelvis is performed from the lung bases to the proximal femora. Images are reviewed in the axial, sagittal, and coronal planes. IV contrast was not administered for this examination as per the referring clinician. Note that the examination was performed in suboptim al fashion without oral and IV contrast. There is also motion artifact, as well as streak artifact fr om the left arm which could not be elevated above the abdomen. A dose lowering technique was utilized adhering to the principles of ALARA. CT DOSE: 400.40 mGycm FINDINGS: Lung bases: The heart is enlarged and without pericardial effusion. A fat-containing Bochdalek hernia is seen at the left lung base. There is bibasilar scarring/atelectasis. No airspace consolidation or pleural effusion is identified. There is a small to moderate hiatal hernia. Liver: The unenhanced liver is normal in size, contour, and attenuation. There is no intrahepatic inocente iary ductal dilatation. Gallbladder: Surgically absent noting clips in the gallbladder fossa. Spleen: Normal in size and attenuation. Pancreas: The unenhanced pancreas is moderately atrophic and grossly unremarkable. Adrenal glands: Unremarkable. Kidneys: The unenhanced kidneys demonstrate cortical atrophy and are without hydronephrosis. There ar e no renal calculi identified. There is no evidence of contour deforming renal mass lesion. Abdominal vasculature: The abdominal aorta is normal in course and caliber noting mild atheroscleroti c calcification. Bowel: Surgical clips are again noted in the stomach. There is mild to moderate sigmoid diverticulosi s without CT evidence of acute diverticulitis. No bowel obstruction is identified. There is wall thic kening involving the descending and proximal sigmoid colon with faint surrounding infiltration. The a ppearance. Is consistent with a mild nonspecific colitis. A duodenal diverticulum is noted. The appen lillie is not identified and reported surgically absent. Peritoneum: There is no intraperitoneal free air or abdominal ascites. Lymphadenopathy: None. Pelvic viscera: The bladder is normal as visualized. The uterus is surgically absent. No adnexal lesi on is seen. Skeletal structures: The skeletal structures are osteopenic. There is advanced lumbosacral spondylosi s and scoliosis. Spinal fusion is noted at L5-S1. No lytic or blastic lesions are seen. There are sub acute/healing right pubic ring fractures. Moderate to advanced arthritic change is seen in the right hip. A neurostimulator device is present in the left gluteal soft tissues. Leads enter the central ca nal in the lower thoracic region. IMPRESSION: 1. Suboptimal examination without oral and IV contrast. There is also streak and motion artifact. 2. There is evidence of a mild nonspecific colitis of the left colon. 3. There are subacute/healing right pubic ring fractures. 4. Additional findings as above. ACT 112: Negative or not required by law. Electronically signed by: Alexi Avendano M.D. 11/02/2020 2:14 PM
[2020-11-02 14:22] LABS: Influenza A virus by PCR Negative (Neg); Influenza B virus by PCR Negative (Neg); RSV by PCR Negative (Neg); SARS CoV2 RNA(COVID-19) InHosp NEGATIVE (Negative)
[2020-11-02] MEDS ORDERED: fentaNYL citrate 100 MCG/2 ML VIAL IV STA (14:23)
--- NOTE | 2020-11-02 14:54 | History & Physical Report ---
Date of Service November 02, 2020 Assessment & Plan (1) Melena: (2) Anemia: This is a 79 yr old F who has a significant PMH of HTN, ARTHUR on CPAP, Hypothyroidism, Fibromyalgia, Rheumatoid arthritis, Osteoporosis, GERD, nutcracker esophagus, hx of PAF, macular degeneration who presents ED today s econdary to multiple complaints for 1 to 2 weeks, but significantly worsened substernal chest pain that started today. Pt presenting with CP pain which is addressed below. Also reports Melena x 2 days with evidence of drop in hemoglobin from 15 to 11.9 today. FOBT negative in ED admit to med tele consult GI remain NPO for now obtain anemia panel, iron, tibc, ferritin, tsat, b12, folate hemocult all stools IV Protonix 40mg BID follow hemoglobin, type and cross pt is not on any nsaids or oac (3) Chest pain: pt with reports of substernal CP, radiating to left chest and neck it did improve w/ nitro; however was reproducible to palpation and worse with inspiration obtain rib series cycle troponins, ecg obtain echocardiogram (4) Closed pelvic ring fracture: pt sustained fall 3 weeks ago evidence of sub acute healing R pelvic ring fx consult ortho, tx conservative for now PT/OT obtain vit D level (5) Left sided colitis: GI consulted obtain stool studies, cdiff afebile, wbc wnl will hold on antibiotics for now (6) HTN (hypertension): continue losartan hold hctz for now monitor daily and resume when able BP elevated in ED, likely situational, continue to monitor (7) Hypothyroidism: check tsh/t4 continue levothyroxine (8) Rheumatoid arthritis: follows rheumatology also has Fibromyagia receives monthly humira inj along with elavil, cymbalta for fibro Has chronic back pain - on hydrocodone and neuro spinal stimulator to have outpt consultation with pain management per pt (9) ARTHUR (obstructive sleep apnea): CPAP at HS (10) DVT prophylaxis: SCD/TEDS for now given concern for melena/drop in hgb reassess daily need for chemical prophylaxis Dispo: med tele PCP: Brittany Full Code Pt was seen and examined in collaboration with Dr. Bourgeois, please see addendum History of Present Illness Chief Complaint: Multiple complaints for 1-2 weeks, but mostly chest pain that worsened today. Primary Care Provider: Acosta Soto MD This is a 79 yr old F who has a significant PMH of HTN, ARTHUR on CPAP, Hypothyroidism, Fibromyalgia, Rheumatoid arthritis, Osteoporosis, GERD, nu tcracker esophagus, hx of PAF, macular degeneration who presents ED today secondary to multiple complaints for 1 to 2 weeks, but significantly worsened substernal chest pain that started today. Pt developed substernal chest pain this morning while at rest with radiation to L side of chest and to neck. Described as dull pain with occasional, "jags." She complains of SOB with exertion/steps. This is not new and she has had this for a few years. Denies SOB at rest. She took 1 nitro at home with minimal relief and received additional nitro and full dose aspirin in ED with resolution of symptoms. Chest pain made worse with palpation as well deep breathing. In regards to chest pain is does come and go since June, but today felt worse. She thought maybe related to heartburn. She has hx of hiatal hernia which was repaired. She tried OTC Gaviscon w/o relief. She also takes PPI BID. She does have hx of PAF and was on eliquis. This was dx on 06/2020. She stopped eliquis and metoprolol but stopped these on her own because of how she felt. She has not had a recurrence since. Further complains of LLQ abd pain and black stools, "coffee ground," for the past two days. She did not see black stool today, but did have diarrhea. She denies taking blood thinners or ASA or iron tablets. She denies f/c/s, cough, dizziness, change in vision but has chronic blurriness, n/v/ dysuria, increased freq with urination. Of significance She fell 3 weeks ago, landed on side and hit her head. She passed out for a few seconds and called for her . Has never happened before. She did not hit her chest. Pt also has had tremors all over body, "felt like seizures." Saw Dr. Ortiz 3 weeks ago due to hip pain. Was given prednisone due to pain and was referred to pain clinic but has not seen them yet. Pt with multiple complaints and difficult to keep on task. Daughter is at bedside. She does feel off balance and requires assist device. In ED patient remained hemodynamically stable. She was noted to have a drop in hemoglobin from 15.4 in July to 11.9 [address] abdomen pelvis which revealed nonspecific colitis of left colon and a subacute/healing right pubic ring fracture. Chest x-ray revealed cardiomegaly without acute process. A 1.3 cm nodular opacity of the right lung base was unchanged likely a summation density. Her initial troponin was unremarkable and EKG was unchanged. She received IV fentanyl, nitroglycerin and 500 mls of IVF. Allergies Allergy/AdvReac Type Severity Reaction Status Date / Time bee venom protein (honey bee) Allergy Unknown "SWELLED Verified 11/02/20 13:30 ALL UP" Iodinated Contrast Media Allergy Unknown PASSED Verified 11/02/20 13:30 OUT-BODY FELT COLD ALL OVER adalimumab [From Humira] AdvReac Unknown Verified 11/02/20 13:30 atorvastatin AdvReac Unknown PAIN IN Verified 11/02/20 13:30 JOINTS gabapentin AdvReac Unknown HORRIBLE Verified 11/02/20 13:30 HEADACHES rosuvastatin [From Crestor] AdvReac Unknown PAIN IN Verified 11/02/20 13:30 JOINTS shellfish derived AdvReac Unknown Headache Verified 11/02/20 13:30 Atorvastatin Calcium TABS AdvReac joint pain Uncoded 11/02/20 13:30 Home Medications Medication Instructions Recorded Confirmed Type Gaviscon 2 ml PO DIRECTED PRN 07/15/18 11/02/20 History armodafinil [Nuvigil] 250 mg PO QAM 07/15/18 11/02/20 History polyethylene glycol 3350 [Miralax] 17 g PO DAILY PRN 07/15/18 11/02/20 History Centrum Silver Women 1 tab PO QAM 10/20/18 11/02/20 History calcium-vitamin D3-vitamin K 2 tab PO DAILY 03/05/19 11/02/20 History [Viactiv] lorazepam 0.5 mg PO QAM PRN 03/05/19 11/02/20 History diphenhydramine HCl 25 mg capsule 50 mg PO HS PRN 03/30/19 11/02/20 History adalimumab [Humira] 40 mg SUBCUT WK 11/02/20 11/02/20 History cholecalciferol (vitamin D3) 1,000 unit PO DAILY 11/02/20 11/02/20 History [Vitamin D3] cyanocobalamin (vitamin B-12) 500 mcg PO DAILY 11/02/20 11/02/20 History [Vitamin B-12] duloxetine 30 mg PO QAM 11/02/20 11/02/20 History hydrochlorothiazide 25 mg PO DAILY 11/02/20 11/02/20 History hydrocodone-acetaminophen 1 tab PO Q6H PRN 11/02/20 11/02/20 History levothyroxine 75 mcg PO QAM 11/02/20 11/02/20 History losartan 100 mg PO DAILY 11/02/20 11/02/20 History pantoprazole 40 mg PO BID 11/02/20 11/02/20 History vitamins A,C,S-ldea-rtaxsx 2 cap PO DAILY 11/02/20 11/02/20 History [PreserVision AREDS] zinc 50 mg PO DAILY 11/02/20 11/02/20 History Past Med/Surg History Medical History (Updated 11/02/20 @ 15:36 by Jolene Wiseman PA-C) Age related osteoporosis Dyslipidemia Fatigue Per 03/2018 endocrine eval, felt to be Subacute thyroiditis likely in thyrotoxic phase. Pt still experiencing fatigue, is going to seek second opinion. Fibromyalgia GERD (gastroesophageal reflux disease) History of concussion MAY 2018 - 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 GETS HEADACHES FROM History of skin cancer Hx of sleep apnea COULDN'T TOLERATE CPAP/REPEAT TESTING SHOWED "DIDN'T NEED" CPAP Hypertension ARTHUR (obstructive sleep apnea) Osteoarthritis Rheumatoid arthritis On Xeljanz Scoliosis Trouble swallowing With specific foods (steak), 2/2 hiatal hernia repair. If food gets stuck she gets chest pain and was given Nitroglycerin for this. Urinary incontinence Surgical History History of appendectomy History of bilateral cataract extraction History of bladder suspension procedure History of cardiac cath 4 YRS AGO..CHEST PAIN...ALTOONA - NO FINDINGS...HIATAL HERNIA DX History of colonoscopy History of endoscopy DILATION OF ESOPHAGUS History of eye surgery LASER History of laparoscopic cholecystectomy History of left knee replacement History of lumbar fusion History of partial colectomy History of partial hysterectomy History of rectocele REPAIR WITH MESH AND MESH SINCE REMOVED History of repair of hiatal hernia History of repair of right rotator cuff History of right knee surgery BRUSA SAC REMOVED History of total left knee replacement History of urologic surgery BLADDER TAC S/P lumbar fusion S/P repair of paraesophageal hernia Family History Sister Colorectal cancer Hypertension Mother Stroke Hypertension Other No pertinent family history Social History Smoking Status: Never smoker Hx Alcohol Use: No Hx Substance Use: No Preferred Language: Kyrgyz Communication Ability: Effective 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: No Beliefs That Will Affect Care: None marital status: Current Living Situation: Spouse Other Information That Helps Us Care for You: No Feels Safe at Home: Yes Safety Concerns: Feels Safe At This Time Assistive Devices: Glasses Review of Systems Review of Systems: All systems reviewed & are unremarkable except as noted in HPI & below Physical Exam Physical Exam: Constitutional: Elderly, F, vitals as above, NAD, sitting up in bed, pleasant, conversing easily Head: Normocephalic, Atraumatic Eyes: PERRL, conjunctivae normal, anicteric sclerae ENMT: external ear and nose normal, oropharynx normal Neck: trachea midline, no thyromegaly normal visual inspection Respiratory: normal respiratory effort, lungs clear to auscultation, no wheeze, rales, rhonchi. Normal insp/exp effort, no accessory muscle use Cardiovascular: RRR, no murmur, no edema Vessels: no JVD or carotid bruit Chest: normal inspection of chest Abdomen: normal bowel sounds, soft, mildly tender to palpation LLQ, no hepatosplenomegaly Musculoskeletal: no cyanosis or clubbing, extremities motor strength 5/5 Skin: no rashes, warm and dry normal turgor Neurologic: PERRL, EOMI, accommodation nl, no face palsy, no dysarthria CN's II-XI intact bilaterally and moves all extremities Psychiatric: A+Ox3, euthymic affect Lymphatic: no cervical or axillary lymphadenopathy : deferred Results & Data Results & Data ([facility]) Vital Signs (Past 12 Hours) Vital Signs Temp Pulse Pulse Resp BP BP Pulse Ox 11/02/20 13:21 60 17 127/64 95 11/02/20 12:16 36.9 C 67 20 113/69 92 Diagnostic Findings Chest X-Ray 11/02/20 12:44 XR chest 1V portable HISTORY: 79 years-old Female Chest Pain acute atypical chest pain COMPARISON: 07/15/2020 TECHNIQUE: Portable AP view of the chest FINDINGS: Cardiomegaly. No pneumothorax, pleural effusion, airspace consolidation or overt pulmonary edema. 1.3 cm nodular opacity of the right lung base redemonstrated. Severe right shoulder osteoarthritis. Reverse left shoulder total joint arthr oplasty. Spinal stimulator leads in place with imaged leads appearing intact. Surgical clips project over the abdominal left upper quadrant. IMPRESSION: 1. Cardiomegaly without acute process. 2. 1.3 cm nodular opacity of the right lung base is unchanged and likely secondary to summation density. A pulmonary nodule could appear similarly. ACT 112: Negative or not required by law. The above report was generated using voice recognition software. It may contain grammatical, syntax or spelling errors. Electronically signed by: He Fitzgerald M.D. 11/02/2020 1:22 PM Abdomen/Pelvis CT 11/02/20 13:36 CT SCAN OF THE ABDOMEN AND PELVIS WITHOUT IV CONTRAST CLINICAL HISTORY: Generalized abdominal pain. COMPARISON STUDY: Abdominal CT dated 09/10/2019. TECHNIQUE: CT scan of the abdomen and pelvis is performed from the lung bases to the proximal femora. Images are reviewed in the axial, sagittal, and coronal planes. IV contrast was not administered for this examination as per the referring clinician. Note that the examination was performed in suboptimal fashion without oral and IV contrast. There is also motion artifact, as well as streak artifact from the left arm which could not be elevated above the abdomen. A dose lowering technique was utilized adhering to the principles of ALARA. CT DOSE: 400.40 mGycm FINDINGS: Lung bases: The heart is enlarged and without pericardial effusion. A fat- containing Bochdalek hernia is seen at the left lung base. There is bibasilar scarring/atelectasis. No airspace consolidation or pleural effusion is identified. There is a small to moderate hiatal hernia. Liver: The unenhanced liver is normal in size, contour, and attenuation. There is no intrahepatic biliary ductal dilatation. Gallbladder: Surgically absent noting clips in the gallbladder fossa. Spleen: Normal in size and attenuation. Pancreas: The unenhanced pancreas is moderately atrophic and grossly unremarkable. Adrenal glands: Unremarkable. Kidneys: The unenhanced kidneys demonstrate cortical atrophy and are without hydronephrosis. There are no renal calculi identified. There is no evidence of contour deforming renal mass lesion. Abdominal vasculature: The abdominal aorta is normal in course and caliber noting mild atherosclerotic calcification. Bowel: Surgical clips are again noted in the stomach. There is mild to moderate sigmoid diverticulosis without CT evidence of acute diverticulitis. No bowel obstruction is identified. There is wall thickening involving the descending and proximal sigmoid colon with faint surrounding infiltration. The appearance. Is consistent with a mild nonspecific colitis. A duodenal diverticulum is noted. The appendix is not identified and reported surgically absent. Peritoneum: There is no intraperitoneal free air or abdominal ascites. Lymphadenopathy: None. Pelvic viscera: The bladder is normal as visualized. The uterus is surgically absent. No adnexal lesion is seen. Skeletal structures: The skeletal structures are osteopenic. There is advanced lumbosacral spondylosis and scoliosis. Spinal fusion is noted at L5-S1. No lytic or blastic lesions are seen. There are subacute/healing right pubic ring fractures. Moderate to advanced arthritic change is seen in the right hip. A neurostimulator device is present in the left gluteal soft tissues. Leads enter the central canal in the lower thoracic region. IMPRESSION: 1. Suboptimal examination without oral and IV contrast. There is also streak and motion artifact. 2. There is evidence of a mild nonspecific colitis of the left colon. 3. There are subacute/healing right pubic ring fractures. 4. Additional findings as above. ACT 112: Negative or not required by law. Electronically signed by: Alexi Avendano M.D. 11/02/2020 2:14 PM Medications Administered Nitroglycerin (Nitroglycerin Sl 0.4 Mg/Tab Tab) 0.4 mg SL UD PRN PRN Reason: Chest Pain Stop: 12/02/20 12:43 Last Admin: 11/02/20 13:18 Dose: 0.4 mg Documented by: [id number] Discontinued Medications Fentanyl Citrate (Fentanyl Citrate 100 Mcg/2 Ml Vial) 50 mcg IV NOW STA Stop: 11/02/20 14:24 Last Admin: 11/02/20 14:41 Dose: 50 mcg Documented by: [id number] Sodium Chloride (Nss) 500 mls @ 999 mls/hr IV .Q31M STA Stop: 11/02/20 13:14 Last Admin: 11/02/20 13:18 Dose: 999 mls/hr Documented by: [id number] ECG Rate (beats per minute): 60 Rhythm: normal sinus COVID-19 Results Results COVID-19 Adm Lab Results: RBC 3.76 M/uL (4.2-5.4) L 11/02/20 WBC 9.08 K/uL (4.8-10.8) 11/02/20 Hgb 11.9 g/dL (12.0-16.0) L 11/02/20 Hct 34.6 % (37-47) L 11/02/20 Plt Count 191 K/uL (130-400) 11/02/20 Neutrophils (%) (Auto) 82.0 % 11/02/20 Lymphocytes (%) (Auto) 9.5 % 11/02/20 Monocytes # (Auto) 0.68 K/uL (0.11-0.59) H 11/02/20 Eosinophils # (Auto) 0.06 K/uL (0-0.5) 11/02/20 Immature Granulocyte % (Auto) 0.1 % 11/02/20 Neutrophils # (Auto) 7.45 K/uL (1.4-6.5) H 11/02/20 Lymphocytes # (Auto) 0.86 K/uL (1.2-3.4) L 11/02/20 Monocytes # (Auto) 0.68 K/uL (0.11-0.59) H 11/02/20 Eosinophils # (Auto) 0.06 K/uL (0-0.5) 11/02/20 Basophils # (Auto) 0.02 K/uL (0-0.2) 11/02/20 Immature Granulocyte # (Auto) 0.01 K/uL (0.00-0.02) 11/02/20 Na 142 mmol/L (136-145) 11/02/20 K 3.6 mmol/L (3.5-5.1) 11/02/20 Cl 108 mmol/L (98-107) H 11/02/20 CO2 31 mmol/L (21-32) 11/02/20 Anion Gap 3.0 (3-11) 11/02/20 BUN 21 mg/dl (7-18) H 11/02/20 Creatinine 0.77 mg/dl (0.6-1.2) 11/02/20 BUN/Creatinine Ratio 27.7 (10-20) H 11/02/20 Glucose Level 86 mg/dl (70-99) 11/02/20 Ca 9.6 mg/dl (8.5-10.1) 11/02/20 Total Bilirubin 0.4 mg/dl (0.2-1) 11/02/20 AST/SGOT 28 U/L (15-37) 11/02/20 ALT/SGPT 23 U/L (12-78) 11/02/20 Alkaline Phosphatase 60 U/L (45-117) 11/02/20 Total Protein 6.1 gm/dl (6.4-8.2) L 11/02/20 Albumin 3.2 gm/dl (3.4-5.0) L 11/02/20 Globulin 2.9 gm/dl (2.5-4.0) 11/02/20 Albumin/Globulin Ratio 1.1 (0.9-2) 11/02/20 Troponin I < 0.015 ng/ml (0-0.045) 11/02/20 INR 1.0 (0.9-1.1) 11/02/20 COVID-19 PCR NEGATIVE (Negative) 11/02/20 Influenza Virus Type A (PCR) Negative (Neg) 11/02/20 Influenza Virus Type B (PCR) Negative (Neg) 11/02/20 Chest X-Ray 11/02/20 Code Status & VTE Plan VTE Prophylaxis Plan VTE Prophylaxis will be ordered: Yes Supervising Physician Co-Signing Physician Notes Patient is a 79-year-old female with multiple comorbidities presents with history of melena since past 2 days. She has chronic left lower quadrant abdominal pain which is unchanged. She denies being on aspirin or any blood thinners. He had 1 large nonbloody bowel movement today. She completed a course of antibiotics for dental work 1 week ago. Usually uses MiraLAX as needed for constipation but currently denies any use. Also states having substernal chest pain intermittently which radiates to her left side of the chest and neck but denies any relation to exertion. As per patient, patient was diagnosed to have A. fib by her home health care respiratory therapist few months ago and was started on metoprolol and Eliquis but patient stopped taking them due to intolerance. She admits to falling couple of weeks ago due to balance issues. Please review HPI for complete details of presentation. EKG showed nonspecific T wave abnormality in inferior leads. Initial troponin is negative. On exam patient is thin, frail, no apparent distress, normocephalic atraumatic, lungs normal breath sounds, clear to auscultation, S1-S2, ? soft systolic murmur, no pedal edema, left-sided chest pain reproducible, abdomen soft, left lower quadrant tenderness, normal bowel sounds, alert, awake, oriented, grossly no neurological deficits. Melena: We will start her on IV PPI. Monitor H&H, consult GI. Check stool studies for any infection. Will hold on IV antibiotics currently. Agree with anemia work-up. Chest Pain:Will trend troponin. Check resting echo, repeat EKG in the morning, monitor on telemetry for any arrhythmias. Will obtain rib x-ray given recent fall. Consult Ortho but asked for input on pelvic fracture. PT OT, fall precautions requested. Incidental finding of right lower lobe opacity on imaging. Patient and family aware of the opacity in the past. I personally reviewed the record. Patient is interviewed and examined at bedside. Patient's care is coordinated with Jolene Wiseman PA-C. Please refer to the documentation above for details of patient's presentation and for discussion of other issues. (1) Left sided colitis Digestive disease complication type: without complication Qualified Code(s): K51.50 - Left sided colitis without complications (2) Closed pelvic ring fracture Encounter type: initial encounter Qualified Code(s): S32.810A - Multiple fractures of pelvis with stable disruption of pelvic ring, initial encounter for closed fracture (3) Chest pain Chest pain type: unspecified Qualified Code(s): R07.9 - Chest pain, unspecified
--- NOTE | 2020-11-02 15:52 | XRay Report ---
LEFT-SIDED RIB SERIES CLINICAL HISTORY: Left-sided chest wall pain. FINDINGS: 5 views of the left ribs are obtained. Correlation is made with chest x-ray performed the day 11/02/2020 and correlated with chest CT dated 01/06/2016. The skeletal structures are osteopenic. There is no radiographic evidence of acute/displaced left-sided rib fracture on the rib series. Ther e are numerous chronic/healed left-sided rib fractures. Advanced degenerative change and scoliosis is noted in the thoracolumbar spine. Fusion hardware is noted in the lower lumbar region. Stimulator le ads project over the thoracic spine. A left shoulder arthroplasty is in place. The left lung parenchy ma is clear as imaged. IMPRESSION: There is no radiographic evidence of acute/displaced left-sided rib fracture as clinicall y queried. Electronically signed by: Alexi Avendano M.D. 11/02/2020 3:51 PM
[2020-11-02] MEDS ORDERED: POLYETHYLENE (MIRALAX) 17 GM PACK PO PRN ×2 (16:25)
[2020-11-02] MEDS ORDERED: ACETAMINOPHEN 325 MG TAB PO PRN (16:25)
[2020-11-02] MEDS ORDERED: ALUMINUM/MAGNESIUM SUSP 30 ML UDC PO PRN (16:25)
[2020-11-02] MEDS ORDERED: MAGNESIUM HYDROXIDE SUSP 30 ML UDC PO PRN (16:25)
[2020-11-02] MEDS ORDERED: ONDANSETRON INJ 2 MG/ML 2 ML VIAL IV PRN (16:25)
[2020-11-02] MEDS ORDERED: HYDROcodone/ACETAMINOPHEN 10/325 TAB PO PRN (16:25)
[2020-11-02] MEDS ORDERED: LORazepam 0.5 MG TAB PO PRN (16:25)
[2020-11-02] MEDS: SODIUM CHLORIDE 0.9% 1000ML 1,000 ML IV SCH (17:01)
--- NOTE | 2020-11-02 17:08 | Electrocardiogram Report ---
Test Reason : Blood Pressure : / mmHG Vent. Rate : 060 BPM Atrial Rate : 060 BPM P-R Int : 130 ms QRS Dur : 090 ms QT Int : 402 ms P-R-T Axes : 056 003 022 degrees QTc Int : 402 ms Normal sinus rhythm Normal ECG When compared with ECG of 15-JUL-2020 15:11, Vent. rate has decreased BY 31 BPM Nonspecific T wave abnormality now evident in Inferior leads Confirmed by Timur Sams ([id number]) on 11/02/2020 5:07:53 PM Referred By: REFERRED SELF Confirmed By:Alphonse Sams
--- NOTE | 2020-11-02 17:11 | Orthopedic Consultation ---
Date of Consultation November 02, 2020 Assessment & Plan (1) Closed pelvic ring fracture: Patient can be weightbearing as tolerated with the assistance of a walker Pain control with p.o. medication such as Tylenol or ibuprofen Ice 3-4 times a day for 15 to 20 minutes Stable from an orthopedic standpoint. Recommend she follows up with Dr. Ortiz 3-4 weeks after discharge for new pelvis x-rays. Supervising Physician Co-Signing Physician Notes I saw and examined the patient and agree with the above note. I reviewed her CT scan and agree with radiologist that she has subacute/healing right pubic ring fractures and moderate to advanced arthritic change in the right hip. Follow-up with Dr. Ortiz 3-4 weeks after discharge for x-ray follow-up. History of Present Illness Reason for Consultation: Closed left pubic ring fracture Requesting Physician: Acosta Rees MD Attending Physician: Chad Bourgeois MD History of Present Illness This 79-year-old female seen in consultation today for closed left pubic ring fracture that she sustained after falling over 3 weeks ago. Patient states she was admitted due to chest pain and abdominal pain that she was experiencing. She states that while she was here she figured that she should have her hip looked at because she has pain when she bears weight. She states she has not had to use any type of assisted ambulatory device for the past few weeks. Patient states she is regularly followed by Dr. Roberth Ortiz, however she has seen Dr. Young in the past and is also been evaluated by physicians at [facility]. Allergies Allergy/AdvReac Type Severity Reaction Status Date / Time bee venom protein (honey bee) Allergy Intermediate "SWELLED Verified 11/02/20 16:37 ALL UP" Iodinated Contrast Media Allergy Intermediate PASSED Verified 11/02/20 16:37 OUT-BODY FELT COLD ALL OVER venlafaxine Allergy Unknown Unknown Verified 11/02/20 16:37 gabapentin AdvReac Intermediate HORRIBLE Verified 11/02/20 16:37 HEADACHES rosuvastatin [From Crestor] AdvReac Intermediate PAIN IN Verified 11/02/20 16:37 JOINTS atorvastatin AdvReac Mild PAIN IN Verified 11/02/20 16:37 JOINTS shellfish derived AdvReac Mild Headache Verified 11/02/20 16:37 adalimumab [From Humira] AdvReac Unknown Unknown Verified 11/02/20 16:37 Home Medications Medication Instructions Recorded Confirmed Type Gaviscon 2 ml PO DIRECTED PRN 07/15/18 11/02/20 History armodafinil [Nuvigil] 250 mg PO QAM 07/15/18 11/02/20 History polyethylene glycol 3350 [Miralax] 17 g PO DAILY PRN 07/15/18 11/02/20 History Centrum Silver Women 1 tab PO QAM 10/20/18 11/02/20 History calcium-vitamin D3-vitamin K 2 tab PO DAILY 03/05/19 11/02/20 History [Viactiv] lorazepam 0.5 mg PO QAM PRN 03/05/19 11/02/20 History diphenhydramine HCl 25 mg capsule 50 mg PO HS PRN 03/30/19 11/02/20 History adalimumab [Humira] 40 mg SUBCUT WK 11/02/20 11/02/20 History cholecalciferol (vitamin D3) 1,000 unit PO DAILY 11/02/20 11/02/20 History [Vitamin D3] cyanocobalamin (vitamin B-12) 500 mcg PO DAILY 11/02/20 11/02/20 History [Vitamin B-12] duloxetine 30 mg PO QAM 11/02/20 11/02/20 History hydrochlorothiazide 25 mg PO DAILY 11/02/20 11/02/20 History hydrocodone-acetaminophen 1 tab PO Q6H PRN 11/02/20 11/02/20 History levothyroxine 75 mcg PO QAM 11/02/20 11/02/20 History losartan 100 mg PO DAILY 11/02/20 11/02/20 History pantoprazole 40 mg PO BID 11/02/20 11/02/20 History vitamins A,C,T-dvcy-iyxwyt 2 cap PO DAILY 11/02/20 11/02/20 History [PreserVision AREDS] zinc 50 mg PO DAILY 11/02/20 11/02/20 History Patient History Medical History Age related osteoporosis Dyslipidemia Fatigue Per 03/2018 endocrine eval, felt to be Subacute thyroiditis likely in thyrotoxic phase. Pt still experiencing fatigue, is going to seek second opinion. Fibromyalgia GERD (gastroesophageal reflux disease) History of concussion MAY 2018 - 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 GETS HEADACHES FROM History of skin cancer Hx of sleep apnea COULDN'T TOLERATE CPAP/REPEAT TESTING SHOWED "DIDN'T NEED" CPAP Hypertension ARTHUR (obstructive sleep apnea) Osteoarthritis Rheumatoid arthritis On Xeljanz Scoliosis Trouble swallowing With specific foods (steak), 2/2 hiatal hernia repair. If food gets stuck she gets chest pain and was given Nitroglycerin for this. Urinary incontinence Surgical History History of appendectomy History of bilateral cataract extraction History of bladder suspension procedure History of cardiac cath 4 YRS AGO..CHEST PAIN...ALTOONA - NO FINDINGS...HIATAL HERNIA DX History of colonoscopy History of endoscopy DILATION OF ESOPHAGUS History of eye surgery LASER History of laparoscopic cholecystectomy History of left knee replacement History of lumbar fusion History of partial colectomy History of partial hysterectomy History of rectocele REPAIR WITH MESH AND MESH SINCE REMOVED History of repair of hiatal hernia History of repair of right rotator cuff History of right knee surgery BRUSA SAC REMOVED History of total left knee replacement History of urologic surgery BLADDER TAC S/P lumbar fusion S/P repair of paraesophageal hernia Family History Sister Colorectal cancer Hypertension Mother Stroke Hypertension Other No pertinent family history Social History Smoking Status: Never smoker Hx Alcohol Use: No Hx Substance Use: No Preferred Language: Icelandic Communication Ability: Effective Ambulatory Analyst Required: No Beliefs That Will Affect Care: None marital status: Current Living Situation: Spouse Other Information That Helps Us Care for You: No Feels Safe at Home: Yes Safety Concerns: Feels Safe At This Time Assistive Devices: Glasses Review of Systems Review of Systems: All systems reviewed & are unremarkable except as noted in HPI & below Physical Exam Physical Exam: Left hip/pelvis: Patient has mild tenderness to palpation over the anterior pubic rami. She has some mild referred pain to the area with passive flexion to 120 degrees and internal rotation of the hip. Logroll test is negative. ELIZABET test and passive external rotation causes no pain. Patient is able perform a straight leg raise test and actively AB and AB duct her left lower extremity Without pain. She has a well-healed scar over the anterior surface of the knee from her previous total knee arthroplasty. Knee range of motion from 0 degrees to 100 degrees causes no pain. Her calf is soft and supple nontender to palpation. She is neurovascularly intact in the left lower extremity. She has no difficulty actively dorsi or plantar flexing her feet. Results & Data ([facility]) Vital Signs (Past 12 Hours) Vital Signs Temp Pulse Pulse Resp BP BP Pulse Ox 11/02/20 16:00 36.9 C 60 89 16 130/68 95 11/02/20 15:30 122/65 97 11/02/20 15:01 95 11/02/20 15:00 135/84 97 11/02/20 14:47 99 11/02/20 14:46 153/78 H 11/02/20 14:31 59 L 19 11/02/20 14:30 60 14 119/64 11/02/20 14:08 58 L 18 128/77 11/02/20 14:07 70 11 L 11/02/20 13:31 65 20 11/02/20 13:30 75 15 133/67 11/02/20 13:21 60 17 127/64 95 11/02/20 13:20 58 L 17 127/64 95 11/02/20 13:00 62 15 94 11/02/20 12:31 64 16 95 11/02/20 12:30 64 16 118/62 94 11/02/20 12:18 63 19 93 11/02/20 12:16 36.9 C 67 20 113/69 92 11/02/20 12:13 62 15 113/69 96 Laboratory Results Lab Results 11/02/20 11/02/20 11/02/20 Range/Units 12:17 12:17 12:17 WBC 9.08 (4.8-10.8) K/uL RBC 3.76 L (4.2-5.4) M/uL Hgb 11.9 L (12.0-16.0) g/dL Hct 34.6 L (37-47) % MCV 92.0 (80-100) fL MCH 31.6 (25-34) pg MCHC 34.4 (32-36) g/dL RDW Std Deviation 50.3 H (36.4-46.3) fL RDW Coeff of Kim 14.7 H (11.5-14.5) % Plt Count 191 (130-400) K/uL MPV 9.3 (7.4-10.4) fL Immature Gran % (Auto) 0.1 % Neut % (Auto) 82.0 % Lymph % (Auto) 9.5 % [place] % (Auto) 7.5 % Eos % (Auto) 0.7 % Baso % (Auto) 0.2 % Neut # (Auto) 7.45 H (1.4-6.5) K/uL Lymph # (Auto) 0.86 L (1.2-3.4) K/uL [place] # (Auto) 0.68 H (0.11-0.59) K/uL Eos # (Auto) 0.06 (0-0.5) K/uL Baso # (Auto) 0.02 (0-0.2) K/uL Immature Gran # (Auto) 0.01 (0.00-0.02) K/uL PT 10.3 (9.0-12.0) Seconds INR 1.0 (0.9-1.1) Sodium 142 (136-145) mmol/L Potassium 3.6 (3.5-5.1) mmol/L Chloride 108 H (98-107) mmol/L Carbon Dioxide 31 (21-32) mmol/L Anion Gap 3.0 (3-11) BUN 21 H (7-18) mg/dl Creatinine 0.77 (0.6-1.2) mg/dl Est Cr Clr Drug Dosing 43.9 ml/min Est GFR ( Amer) 86.3 Est GFR (Non-Af Amer) 74.5 BUN/Creatinine Ratio 27.7 H (10-20) Glucose 86 (70-99) mg/dl Calcium 9.6 (8.5-10.1) mg/dl Total Bilirubin 0.4 (0.2-1) mg/dl AST 28 (15-37) U/L ALT 23 (12-78) U/L Alkaline Phosphatase 60 (45-117) U/L Troponin I < 0.015 (0-0.045) ng/ml Total Protein 6.1 L (6.4-8.2) gm/dl Albumin 3.2 L (3.4-5.0) gm/dl Globulin 2.9 (2.5-4.0) gm/dl Albumin/Globulin Ratio 1.1 (0.9-2) Lipase 105 (73-393) U/L TSH (0.300-4.500) uIu/ml COVID-19 Eval Order SARS-CoV-2 (PCR) (Negative) Influenza Type A (PCR) (Neg) Influenza Type B (PCR) (Neg) RSV (RT-PCR) (Neg) Blood Type Antibody Screen 11/02/20 11/02/20 11/02/20 Range/Units 12:17 13:13 13:13 WBC (4.8-10.8) K/uL RBC (4.2-5.4) M/uL Hgb (12.0-16.0) g/dL Hct (37-47) % MCV (80-100) fL MCH (25-34) pg MCHC (32-36) g/dL RDW Std Deviation (36.4-46.3) fL RDW Coeff of Kim (11.5-14.5) % Plt Count (130-400) K/uL MPV (7.4-10.4) fL Immature Gran % (Auto) % Neut % (Auto) % Lymph % (Auto) % [place] % (Auto) % Eos % (Auto) % Baso % (Auto) % Neut # (Auto) (1.4-6.5) K/uL Lymph # (Auto) (1.2-3.4) K/uL [place] # (Auto) (0.11-0.59) K/uL Eos # (Auto) (0-0.5) K/uL Baso # (Auto) (0-0.2) K/uL Immature Gran # (Auto) (0.00-0.02) K/uL PT (9.0-12.0) Seconds INR (0.9-1.1) Sodium (136-145) mmol/L Potassium (3.5-5.1) mmol/L Chloride (98-107) mmol/L Carbon Dioxide (21-32) mmol/L Anion Gap (3-11) BUN (7-18) mg/dl Creatinine (0.6-1.2) mg/dl Est Cr Clr Drug Dosing ml/min Est GFR ( Amer) Est GFR (Non-Af Amer) BUN/Creatinine Ratio (10-20) Glucose (70-99) mg/dl Calcium (8.5-10.1) mg/dl Total Bilirubin (0.2-1) mg/dl AST (15-37) U/L ALT (12-78) U/L Alkaline Phosphatase (45-117) U/L Troponin I (0-0.045) ng/ml Total Protein (6.4-8.2) gm/dl Albumin (3.4-5.0) gm/dl Globulin (2.5-4.0) gm/dl Albumin/Globulin Ratio (0.9-2) Lipase (73-393) U/L TSH 0.514 (0.300-4.500) uIu/ml COVID-[address] Eval [address] CovFluRsv at [facility] SARS-CoV-2 (PCR) NEGATIVE (Negative) Influenza Type A (PCR) Negative (Neg) Influenza Type B (PCR) Negative (Neg) RSV (RT-PCR) Negative (Neg) Blood Type Antibody Screen 11/02/20 Range/Units 15:29 WBC (4.8-10.8) K/uL RBC (4.2-5.4) M/uL Hgb (12.0-16.0) g/dL Hct (37-47) % MCV (80-100) fL MCH (25-34) pg MCHC (32-36) g/dL RDW Std Deviation (36.4-46.3) fL RDW Coeff of Kim (11.5-14.5) % Plt Count (130-400) K/uL MPV (7.4-10.4) fL Immature Gran % (Auto) % Neut % (Auto) % Lymph % (Auto) % [place] % (Auto) % Eos % (Auto) % Baso % (Auto) % Neut # (Auto) (1.4-6.5) K/uL Lymph # (Auto) (1.2-3.4) K/uL [place] # (Auto) (0.11-0.59) K/uL Eos # (Auto) (0-0.5) K/uL Baso # (Auto) (0-0.2) K/uL Immature Gran # (Auto) (0.00-0.02) K/uL PT (9.0-12.0) Seconds INR (0.9-1.1) Sodium (136-145) mmol/L Potassium (3.5-5.1) mmol/L Chloride (98-107) mmol/L Carbon Dioxide (21-32) mmol/L Anion Gap (3-11) BUN (7-18) mg/dl Creatinine (0.6-1.2) mg/dl Est Cr Clr Drug Dosing ml/min Est GFR ( Amer) Est GFR (Non-Af Amer) BUN/Creatinine Ratio (10-20) Glucose (70-99) mg/dl Calcium (8.5-10.1) mg/dl Total Bilirubin (0.2-1) mg/dl AST (15-37) U/L ALT (12-78) U/L Alkaline Phosphatase (45-117) U/L Troponin I (0-0.045) ng/ml Total Protein (6.4-8.2) gm/dl Albumin (3.4-5.0) gm/dl Globulin (2.5-4.0) gm/dl Albumin/Globulin Ratio (0.9-2) Lipase (73-393) U/L TSH (0.300-4.500) uIu/ml COVID-19 Eval Order SARS-CoV-2 (PCR) (Negative) Influenza Type A (PCR) (Neg) Influenza Type B (PCR) (Neg) RSV (RT-PCR) (Neg) Blood Type A Positive Antibody Screen NEGATIVE (1) Closed pelvic ring fracture Encounter type: initial encounter Qualified Code(s): S32.810A - Multiple fractures of pelvis with stable disruption of pelvic ring, initial encounter for closed fracture
[2020-11-02] MEDS: PANTOprazole 40 MG in SYRINGE 0 ML IV SCH (20:45)
[2020-11-03] MEDS: SODIUM CHLORIDE 0.9% 1000ML 1,000 ML IV SCH (06:03)
[2020-11-03] MEDS ORDERED: LEVOTHYROXINE SODIUM 75 MCG TABLET PO SCH (06:30)
[2020-11-03 07:35] LABS: Hematocrit (blood only) 33.1 % (37-47); Mean Corpuscular Hgb Conc 33.2 g/dL (32-36); Mean Corpuscular Volume 93.2 fL (80-100); Mean Platelet Volume 9.2 fL (7.4-10.4); Platelet Count 167 K/uL (130-400); RDW Coefficient of Variation 14.9 % (11.5-14.5); RDW Standard Deviation 51.1 fL (36.4-46.3); Red Blood Count 3.55 M/uL (4.2-5.4); White Blood Count 4.76 K/uL (4.8-10.8)
[2020-11-03] MEDS: PANTOprazole 40 MG in SYRINGE 0 ML IV SCH (07:54)
[2020-11-03 07:59] LABS: BUN Creatinine Ratio 23.6 (10-20); Calcium 8.5 mg/dl (8.5-10.1); Creatinine Clr Calc Pharmacy 49.8 ml/min; Est GFR (African American) 97.8; Est GFR (Non-African American) 84.4; Magnesium 1.6 mg/dl (1.8-2.4); Potassium 3.7 mmol/L (3.5-5.1)
--- NOTE | 2020-11-03 08:10 | Hospitalist Progress Note ---
Date of Service November 03, 2020 Assessment & Plan (1) Melena: (2) Anemia: This is a 79 yr old F who has a significant PMH of HTN, ARTHUR on CPAP, Hypothyroidism, Fibromyalgia, Rheumatoid arthritis, Osteoporosis, GERD, nutcracker esophagus, hx of PAF, macular degeneration who presents ED today s econdary to multiple complaints for 1 to 2 weeks, but significantly worsened substernal chest pain that started today. Pt presenting with CP pain which is addressed below. Also reports Melena x 2 days with evidence of drop in hemoglobin from 15 to 11.9 today. FOBT negative in ED admit to med tele GI to see remain NPO for now obtain anemia panel, iron, tibc, ferritin, tsat, b12, folate hemocult all stools IV Protonix 40mg BID follow hemoglobin, type and cross pt is not on any nsaids or oac (3) Chest pain: pt with reports of substernal CP, radiating to left chest and neck it did improve w/ nitro; however was reproducible to palpation and worse with inspiration obtain rib series troponins are negative, Chest hurt c pressure from the probe during Echo, ecg reviewed Echocardiogram done (4) Closed pelvic ring fracture: pt sustained fall 3 weeks ago evidence of sub acute healing R pelvic ring fx ortho saw her-Closed pelvic ring fracture: Patient can be weightbearing as tolerated with the assistance of a walker Pain control with p.o. medication such as Tylenol or ibuprofen Ice 3-4 times a day for 15 to 20 minutes Stable from an orthopedic standpoint. Recommend she follows up with Dr. Ortiz 3-4 weeks after discharge for new pelvis x-rays. PT/OT obtain vit D level (5) Left sided colitis: GI consulted obtain stool studies, cdiff afebile, wbc wnl will hold on antibiotics for now (6) HTN (hypertension): continue losartan hold hctz for now monitor daily and resume when able BP elevated in ED, likely situational, continue to monitor (7) Hypothyroidism: check tsh/t4 continue levothyroxine (8) Rheumatoid arthritis: follows rheumatology also has Fibromyagia receives monthly humira inj along with elavil, cymbalta for fibro Has chronic back pain - on hydrocodone and neuro spinal stimulator to have outpt consultation with pain management per pt (9) ARTHUR (obstructive sleep apnea): CPAP at HS (10) DVT prophylaxis: SCD/TEDS for now given concern for melena/drop in hgb reassess daily need for chemical prophylaxis Dispo: med tele PCP: Brittany Full Code Labs checked, Replete Mg++ ROS-No Headache, No Visual Changes, No Nausea, No Vomiting, No Fever, No Chills, No Neck Pain or Stiffness, No Chest Pain, No Palpitations, No SOB, No MENDEZ, No Cough, No Sputum, No Wheezing, No Abdominal Pain, No Diarrhea, No Hematemesis, No Hemoptysis, No Unexpected Weight Loss, No Flank pain, No Melena, No Hem atochezia, No Frequency, No Urgency, No Burning, No Hematuria, No Rashes, No Diaphoresis. Appetite is Normal, c/o rib pain Physical Exam Gen-AAO x 3, NAD, Afebrile Head-NCAT, EOMI, PERRLA, Anicteric Sclera, No Posterior Pharyngeal Erythema Neck-Supple, No JVD, No Thyromegaly, No Masses, No LAD, No Bruits Lungs-Clear to Auscultation Bilaterally, No Rales, No Rhonchi, No Wheezing, No Crepitus Chest-No S4, +S1, +S2, No S3, No Murmurs, No Rubs, No Gallops, No Ectopy Abdomen-Soft, Bowel Sounds Present, Non Tender, Non Distended, No Hepatomegaly, No Splenomegaly, No Palpable Masses, No Rebound, No Rigidity, No Guarding Musculoskeletal-Full Range of Motion Bilaterally, No CVAT Extremities-No Cyanosis, No Clubbing, No Edema Nuero-Cranial Nerves II-XII grossly intact, Motor WNL, DTRs WNL, Strength WNL, Non Focal Psych-Normal Mood Admission and Anticipated Discharge Date Admission Date: November 02, 2020 Results & Data Results & Data ([facility]) Vital Signs (Past 12 Hours) Vital Signs Temp Pulse Pulse Resp BP Pulse Ox 11/03/20 07:53 37.0 C 56 L 18 114/66 95 11/03/20 07:39 50 L 11/03/20 02:57 36.7 C 54 L 17 111/66 96 11/02/20 23:57 57 L 11/02/20 22:58 37 C 57 L 16 117/79 95 (1) Chest pain Chest pain type: unspecified Qualified Code(s): R07.9 - Chest pain, unspecified (2) Closed pelvic ring fracture Encounter type: initial encounter Qualified Code(s): S32.810A - Multiple fractures of pelvis with stable disruption of pelvic ring, initial encounter for closed fracture (3) Left sided colitis Digestive disease complication type: without complication Qualified Code(s): K51.50 - Left sided colitis without complications
[2020-11-03] MEDS ORDERED: MAGNESIUM SULFATE / D5W 1 GM/100 ML BAG IV ONE (08:30)
[2020-11-03 08:35] LABS: Folate (Folic Acid) > 20.00 ng/ml (>5.38); Vitamin B12 804 pg/ml (193-986)
[2020-11-03] MEDS ORDERED: CYANOCOBALAMIN 500 MCG TABLET (VITAMIN B-12) PO SCH (09:00)
[2020-11-03] MEDS ORDERED: LOSARTAN POTASSIUM 50 MG TAB PO SCH (09:00)
[2020-11-03] MEDS ORDERED: CALCIUM 600MG + VIT D 400 IU TAB PO SCH (09:00)
[2020-11-03] MEDS ORDERED: CEROVITE ADV FORMULA TAB PO SCH (09:00)
[2020-11-03] MEDS ORDERED: ARMODAFINIL 250 MG PO SCH (09:00)
[2020-11-03] MEDS ORDERED: DULoxetine HCL 30 MG CAP PO SCH (09:00)
[2020-11-03] MEDS ORDERED: CHOLECALCIFEROL 1,000 UNITS 25 MCG TAB PO SCH (09:00)
[2020-11-03] MEDS ORDERED: ZINC SULFATE 220 MG CAPSULE PO SCH (09:00)
--- NOTE | 2020-11-03 09:58 | Gastrointestinal Consultation ---
Date of Consultation November 03, 2020 Assessment & Plan (1) Melena: (2) Acute blood loss anemia: (3) Chest pain: (4) Abdominal pain: Pt. is a 79 y.o. female with a history of GERD, large hiatus hernia, gastritis with intestinal metaplasia and HH admitted with acute blood loss anemia, chest pain and epigastric pain in the setting of recent oral corticosteroid and aspirin use s/p fall ~3 weeks ago. DDx: AVM vs PUD vs Andrade's erosions vs malignancy vs other. Recommendations: -NPO for now. -EGD today with Dr. Valladares for further evaluation. -Continue PPI as prescribed 40 mg IV BID. -Supportive care. Thank you for allowing us to participate in the care of this patient. Further recommendations will be made pending results of testing. If you have any questions or concerns, please do not hesitate to contact us. Supervising Physician Co-Signing Physician Notes I personally evaluated the patient and agree with the findings as documented by KRISTIN Beasley Exam: abd: soft, nt, nd Proceed with EGD. History of Present Illness Reason for Consultation: Melena, chest pain Requesting Physician: Jolene Wiseman PA-C Attending Physician: Zan Hernandez DO History of Present Illness Patient is a very pleasant 79 y.o. 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 Ochoa in 2019. She presented to the ER via EMS after a sudden onset of severe chest pains which she reports had been ongoing intermittently for the past several days. The pain is described as intense burning, "like heartburn". There was associated nausea and epigastric pain as well as melena. She does use Pantoprazole 40 mg daily as an outpatient. Most recently, however, she did sustain a fall on 10/18/20 and was prescribed Tizanidine as well as a Medrol dose pack for pain and inflammation. She reports she was also using Excedrin OTC as well for pain. On arrival, her H&H was noted to be 11.9/34.6. Hemoglobin did drop to 11.0 this morning. Her Hemoglobin was noted to be 15 in July. Last EGD was performed by Dr. Green in 2014 and significant for a tortuous esophagus with associated large hiatus hernia, gastritis, and a single gastric polyp which was biopsied and tattooed at that time. Pathology reviewed: inflamed hyperplastic polyp and chronic gastritis with associated gastric intestinal metaplasia. Currently, the patient states she is not having any chest pain. No vomiting or other GI complaints. She remains NPO. Allergies Allergy/AdvReac Type Severity Reaction Status Date / Time bee venom protein (honey bee) Allergy Intermediate "SWELLED Verified 11/02/20 16:37 ALL UP" Iodinated Contrast Media Allergy Intermediate PASSED Verified 11/02/20 16:37 OUT-BODY FELT COLD ALL OVER venlafaxine Allergy Unknown Unknown Verified 11/02/20 16:37 gabapentin AdvReac Intermediate HORRIBLE Verified 11/02/20 16:37 HEADACHES rosuvastatin [From Crestor] AdvReac Intermediate PAIN IN Verified 11/02/20 16:37 JOINTS atorvastatin AdvReac Mild PAIN IN Verified 11/02/20 16:37 JOINTS shellfish derived AdvReac Mild Headache Verified 11/02/20 16:37 adalimumab [From Humira] AdvReac Unknown Unknown Verified 11/02/20 16:37 Home Medications Medication Instructions Recorded Confirmed Type Gaviscon 2 ml PO DIRECTED PRN 07/15/18 11/02/20 History armodafinil [Nuvigil] 250 mg PO QAM 07/15/18 11/02/20 History polyethylene glycol 3350 [Miralax] 17 g PO DAILY PRN 07/15/18 11/02/20 History Centrum Silver Women 1 tab PO QAM 10/20/18 11/02/20 History calcium-vitamin D3-vitamin K 2 tab PO DAILY 03/05/19 11/02/20 History [Viactiv] lorazepam 0.5 mg PO QAM PRN 03/05/19 11/02/20 History diphenhydramine HCl 25 mg capsule 50 mg PO HS PRN 03/30/19 11/02/20 History adalimumab [Humira] 40 mg SUBCUT WK 11/02/20 11/02/20 History cholecalciferol (vitamin D3) 1,000 unit PO DAILY 11/02/20 11/02/20 History [Vitamin D3] cyanocobalamin (vitamin B-12) 500 mcg PO DAILY 11/02/20 11/02/20 History [Vitamin B-12] duloxetine 30 mg PO QAM 11/02/20 11/02/20 History hydrochlorothiazide 25 mg PO DAILY 11/02/20 11/02/20 History hydrocodone-acetaminophen 1 tab PO Q6H PRN 11/02/20 11/02/20 History levothyroxine 75 mcg PO QAM 11/02/20 11/02/20 History losartan 100 mg PO DAILY 11/02/20 11/02/20 History pantoprazole 40 mg PO BID 11/02/20 11/02/20 History vitamins A,C,C-dnmo-jtbbha 2 cap PO DAILY 11/02/20 11/02/20 History [PreserVision AREDS] zinc 50 mg PO DAILY 11/02/20 11/02/20 History Patient History Medical History Age related osteoporosis Dyslipidemia Fatigue Per 03/2018 endocrine eval, felt to be Subacute thyroiditis likely in thyrotoxic phase. Pt still experiencing fatigue, is going to seek second opinion. Fibromyalgia GERD (gastroesophageal reflux disease) History of concussion MAY 2018 - 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 GETS HEADACHES FROM History of skin cancer Hx of sleep apnea COULDN'T TOLERATE CPAP/REPEAT TESTING SHOWED "DIDN'T NEED" CPAP Hypertension ARTHUR (obstructive sleep apnea) Osteoarthritis Rheumatoid arthritis On Xeljanz Scoliosis Trouble swallowing With specific foods (steak), 2/2 hiatal hernia repair. If food gets stuck she gets chest pain and was given Nitroglycerin for this. Urinary incontinence Surgical History History of appendectomy History of bilateral cataract extraction History of bladder suspension procedure History of cardiac cath 4 YRS AGO..CHEST PAIN...ALTOONA - NO FINDINGS...HIATAL HERNIA DX History of colonoscopy History of endoscopy DILATION OF ESOPHAGUS History of eye surgery LASER History of laparoscopic cholecystectomy History of left knee replacement History of lumbar fusion History of partial colectomy History of partial hysterectomy History of rectocele REPAIR WITH MESH AND MESH SINCE REMOVED History of repair of hiatal hernia History of repair of right rotator cuff History of right knee surgery BRUSA SAC REMOVED History of total left knee replacement History of urologic surgery BLADDER TAC S/P lumbar fusion S/P repair of paraesophageal hernia Family History Sister Colorectal cancer Hypertension Mother Stroke Hypertension Other No pertinent family history Social History Smoking Status: Never smoker Hx Alcohol Use: No Hx Substance Use: No Preferred Language: Gambian Communication Ability: Effective Cherry Grower Required: No Beliefs That Will Affect Care: None marital status: Current Living Situation: Spouse Other Information That Helps Us Care for You: No Feels Safe at Home: Yes Safety Concerns: Feels Safe At This Time Assistive Devices: None Review of Systems Review of Systems: All systems reviewed & are unremarkable except as noted in HPI & below Physical Exam Constitutional: WD/WN, vitals as above Eyes: EOM intact bilaterally Neck: normal appearance Respiratory: normal respiratory effort, lungs clear to auscultation Cardiovascular: Rate/Rhythm: regular rate and regular rhythm Heart Sounds: no gallop and no murmur Gastrointestinal (Abdomen): Inspection/Auscultation: normal bowel sounds Percussion/Palpation: + abdomen tender (epigastric) and abdomen soft Musculoskeletal: Extremities: no cyanosis no lower extremity edema Skin: no rashes, warm and dry Neurologic: moves all extremities Psychiatric: A+Ox3, euthymic affect Results & Data ([facility]) Vital Signs (Past 12 Hours) Vital Signs Temp Pulse Pulse Resp BP Pulse Ox 11/03/20 07:53 37.0 C 56 L 18 114/66 95 11/03/20 07:39 50 L 11/03/20 02:57 36.7 C 54 L 17 111/66 96 11/02/20 23:57 57 L 11/02/20 22:58 37 C 57 L 16 117/79 95 Laboratory Results Abnormal lab results 11/02/20 11/02/20 11/03/20 Range/Units 12:17 12:17 07:08 WBC 4.76 L (4.8-10.8) K/uL RBC 3.76 L 3.55 L (4.2-5.4) M/uL Hgb 11.9 L 11.0 L (12.0-16.0) g/dL Hct 34.6 L 33.1 L (37-47) % RDW Std Deviation 50.3 H 51.1 H (36.4-46.3) fL RDW Coeff of Kim 14.7 H 14.9 H (11.5-14.5) % Neut # (Auto) 7.45 H (1.4-6.5) K/uL Lymph # (Auto) 0.86 L (1.2-3.4) K/uL [place] # (Auto) 0.68 H (0.11-0.59) K/uL Chloride 108 H (98-107) mmol/L BUN 21 H (7-18) mg/dl BUN/Creatinine Ratio 27.7 H (10-20) Magnesium (1.8-2.4) mg/dl Iron (35-150) mcg/dl Transferrin (200-360) mg/dl Total Protein 6.1 L (6.4-8.2) gm/dl Albumin 3.2 L (3.4-5.0) gm/dl 11/03/20 Range/Units 07:08 WBC (4.8-10.8) K/uL RBC (4.2-5.4) M/uL Hgb (12.0-16.0) g/dL Hct (37-47) % RDW Std Deviation (36.4-46.3) fL RDW Coeff of Kim (11.5-14.5) % Neut # (Auto) (1.4-6.5) K/uL Lymph # (Auto) (1.2-3.4) K/uL [place] # (Auto) (0.11-0.59) K/uL Chloride 111 H (98-107) mmol/L BUN (7-18) mg/dl BUN/Creatinine Ratio 23.6 H (10-20) Magnesium 1.6 L (1.8-2.4) mg/dl Iron 173 H (35-150) mcg/dl Transferrin 189 L (200-360) mg/dl Total Protein (6.4-8.2) gm/dl Albumin (3.4-5.0) gm/dl PG Care Time/CCT Total # of Minutes Spent Total Time Spent with Patient: Total time spent is greater than 50% in coordination of care (as documented) at patient's floor/unit and/or counseling patient: Coding Level of Care Code 19955 Initial Inpt Care Lvl 3 Diagnoses Melena K92.1 Acute blood loss anemia D62 Chest pain R07.9 Chest pain type: unspecified Abdominal pain R10.30 Abdominal location: lower abdomen, unspecified (1) Abdominal pain Abdominal location: lower abdomen, unspecified Qualified Code(s): R10.30 - Lower abdominal pain, unspecified (2) Chest pain Chest pain type: unspecified Qualified Code(s): R07.9 - Chest pain, unspecified
[2020-11-03] MEDS ORDERED: ePHEDrine sulfate 50 MG/ML AMP IV PRN (12:27)
[2020-11-03] MEDS ORDERED: ATROPINE SULFATE 0.1 MG/ML 10ML SYR IV PRN (12:27)
--- NOTE | 2020-11-03 12:27 | Anesthesiology Consultation ---
Date of Service November 03, 2020 Assessment & Plan Chart Review Chart Review: Acceptable Risk for Surgery and Patient NOT seen in Pre Admission Testing Consults Requested none ASA ASA4 Proposed Anesthesia Anesthesia Type: MAC Risk / Benefits Reviewed With: PT / POA / Parent / Guardian, Accepts Plan and Informed Consent Obtained Additional Comments: covid test negative History Surgery Operation Date: 11/03/20 15:30 Proposed Procedures p Esophagogastroduodenoscopy Dr. Valladares - Claus Valladares MD Height/Weight Height: 5 ft Weight: 54.3 kg Allergies Allergy/AdvReac Type Severity Reaction Status Date / Time bee venom protein (honey bee) Allergy Intermediate "SWELLED Verified 11/03/20 12:06 ALL UP" Iodinated Contrast Media Allergy Intermediate PASSED Verified 11/03/20 12:06 OUT-BODY FELT COLD ALL OVER venlafaxine Allergy Unknown Unknown Verified 11/03/20 12:06 gabapentin AdvReac Intermediate HORRIBLE Verified 11/03/20 12:06 HEADACHES rosuvastatin [From Crestor] AdvReac Intermediate PAIN IN Verified 11/03/20 12:06 JOINTS atorvastatin AdvReac Mild PAIN IN Verified 11/03/20 12:06 JOINTS shellfish derived AdvReac Mild Headache Verified 11/03/20 12:06 adalimumab [From Humira] AdvReac Unknown Unknown Verified 11/03/20 12:06 Medications Home Medications Medication Instructions Recorded Confirmed Last Taken Gaviscon 2 ml PO DIRECTED PRN 07/15/18 11/02/20 11/19/18 19:00 armodafinil [Nuvigil] 250 mg PO QAM 07/15/18 11/02/20 03/04/19 polyethylene glycol 3350 [Miralax] 17 g PO DAILY PRN 07/15/18 11/02/20 11/19/18 08:00 Centrum Silver Women 1 tab PO QAM 10/20/18 11/02/20 03/05/19 calcium-vitamin D3-vitamin K 2 tab PO DAILY 03/05/19 11/02/20 03/05/19 [Viactiv] lorazepam 0.5 mg PO QAM PRN 03/05/19 11/02/20 Unknown diphenhydramine HCl 25 mg capsule 50 mg PO HS PRN 03/30/19 11/02/20 11/01/20 adalimumab [Humira] 40 mg SUBCUT WK 11/02/20 11/02/20 Unknown cholecalciferol (vitamin D3) 1,000 unit PO DAILY 11/02/20 11/02/20 11/02/20 [Vitamin D3] cyanocobalamin (vitamin B-12) 500 mcg PO DAILY 11/02/20 11/02/20 11/01/20 [Vitamin B-12] duloxetine 30 mg PO QAM 11/02/20 11/02/20 Unknown hydrochlorothiazide 25 mg PO DAILY 11/02/20 11/02/20 Unknown hydrocodone-acetaminophen 1 tab PO Q6H PRN 11/02/20 11/02/20 11/02/20 levothyroxine 75 mcg PO QAM 11/02/20 11/02/20 Unknown losartan 100 mg PO DAILY 11/02/20 11/02/20 Unknown pantoprazole 40 mg PO BID 11/02/20 11/02/20 11/02/20 vitamins A,C,G-wuqx-ltaijq 2 cap PO DAILY 11/02/20 11/02/20 11/02/20 [PreserVision AREDS] zinc 50 mg PO DAILY 11/02/20 11/02/20 11/01/20 Active Medications Generic Name Dose Route Start Last Admin Trade Name Freq PRN Reason Stop Dose Admin Acetaminophen 650 mg 11/02/20 16:25 11/02/20 20:13 Acetaminophen 325 Mg Tab PO 12/02/20 16:24 650 mg Q4H PRN Administration Pain or Fever Hydrocodone Bitart/Acetaminophen 1 tab 11/02/20 16:25 11/02/20 22:57 Hydrocodone/Acetaminophen 10/325 Tab PO 11/16/20 16:24 1 tab Q6H PRN Administration Pain Cyanocobalamin 500 mcg 11/03/20 09:00 11/03/20 07:54 Cyanocobalamin 500 Mcg Tablet (Vitamin B-12) PO 12/03/20 08:59 500 mcg DAILY MIKEY Administration Duloxetine HCl 30 mg 11/03/20 09:00 11/03/20 07:54 Duloxetine Hcl 30 Mg Cap PO 12/03/20 08:59 30 mg QAM MIKEY Administration Sodium Chloride 1,000 mls @ 80 mls/hr 11/02/20 16:25 11/03/20 06:03 Nss 1000ml IV 12/02/20 16:24 80 mls/hr .[id number] MIKEY Administration Pantoprazole Sodium 40 mg/ 10 mls @ 5 mls/min 11/02/20 21:00 11/03/20 07:54 Syringe IV 12/02/20 20:59 5 mls/min BID MIKEY Administration Levothyroxine Sodium 75 mcg 11/03/20 06:30 11/03/20 06:03 Levothyroxine Sodium 75 Mcg Tablet PO 12/03/20 06:29 75 mcg DAILYBB MIKEY Administration Losartan Potassium 100 mg 11/03/20 09:00 11/03/20 07:54 Losartan Potassium 50 Mg Tab PO 12/03/20 08:59 100 mg DAILY MIKEY Administration Miscellaneous 1 ea 11/03/20 00:00 11/03/20 07:02 Armodafinil (Nuvigil) 250mg Tablet~Order Awaiting Action N/A 12/03/20 00:00 Not Given QS MIKEY Multivitamins/Minerals 2 tab 11/03/20 09:00 11/03/20 07:54 Calcium 600mg + Vit D 400 Iu Tab PO 12/03/20 08:59 2 tab DAILY MIKEY Administration Multivitamins/Minerals 1 tab 11/03/20 09:00 11/03/20 07:54 Cerovite Adv Formula Tab PO 12/03/20 08:59 1 tab QAM MIKEY Administration Vitamin D 1,000 units 11/03/20 09:00 11/03/20 07:54 Cholecalciferol 1,000 Units 25 Mcg Tab PO 12/03/20 08:59 1,000 units DAILY MIKEY Administration Zinc Sulfate 220 mg 11/03/20 09:00 11/03/20 07:54 Zinc Sulfate 220 Mg Capsule PO 12/03/20 08:59 220 mg DAILY MIKEY Administration NPO Date Last Intake of Fluids: 11/03/20 Time Last Intake of Fluids: 08:00 Last Intake of Fluids Comment: sips with meds Date Last Intake of Solids: 11/02/20 Time Last Intake of Solids: 08:00 Past Medical History Medical History Age related osteoporosis Dyslipidemia Fatigue Per 03/2018 endocrine eval, felt to be Subacute thyroiditis likely in thyrotoxic phase. Pt still experiencing fatigue, is going to seek second opinion. Fibromyalgia GERD (gastroesophageal reflux disease) History of concussion MAY 2018 - 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 GETS HEADACHES FROM History of skin cancer Hx of sleep apnea COULDN'T TOLERATE CPAP/REPEAT TESTING SHOWED "DIDN'T NEED" CPAP Hypertension ARTHUR (obstructive sleep apnea) Osteoarthritis Rheumatoid arthritis On Xeljanz Scoliosis Trouble swallowing With specific foods (steak), 2/2 hiatal hernia repair. If food gets stuck she gets chest pain and was given Nitroglycerin for this. Urinary incontinence Exercise / Class Metabolic Activity III < 4 Walking/Shop/Light housework Past Family History Family History Sister Colorectal cancer Hypertension Mother Stroke Hypertension Other No pertinent family history Past Surgical History Surgical History History of appendectomy History of bilateral cataract extraction History of bladder suspension procedure History of cardiac cath 4 YRS AGO..CHEST PAIN...ALTOONA - NO FINDINGS...HIATAL HERNIA DX History of colonoscopy History of endoscopy DILATION OF ESOPHAGUS History of eye surgery LASER History of laparoscopic cholecystectomy History of left knee replacement History of lumbar fusion History of partial colectomy History of partial hysterectomy History of rectocele REPAIR WITH MESH AND MESH SINCE REMOVED History of repair of hiatal hernia History of repair of right rotator cuff History of right knee surgery BRUSA SAC REMOVED History of total left knee replacement History of urologic surgery BLADDER TAC S/P lumbar fusion S/P repair of paraesophageal hernia Past Anesthesia History No Hx of Anesthesia Complications and No Family Hx of Anesthesia Complications History of PONV No Hx of PONV and No Hx of Motion Sickness Social History Smoking Status: Never smoker Hx Alcohol Use: No Hx Substance Use: No substance use type: does not use Physical Exam Vital Signs Last Vital Signs Temp 36.5 C 11/03/20 12:10 Pulse 58 L 11/03/20 12:10 Resp 16 11/03/20 12:10 BP 126/70 11/03/20 12:10 Pulse Ox 98 11/03/20 12:10 Constitutional + thin ENMT Mouth: + dentition abnormality and + dentures Thyromental Distance: < 3.5 Finger Breadths Mallampati Class: II Neck normal visual inspection and trachea midline; neck extension not limited Respiratory normal respiratory effort Auscultation: lungs clear to auscultation bilaterally Cardiovascular Rate/Rhythm: regular rate and regular rhythm Heart Sounds: no murmur Vessels: no carotid bruit Musculoskeletal Spine: normal cervical ROM Extremities: extremities normal to inspection Neurologic moves all extremities Motor/Sensory: no sensory deficit Psychiatric Orientation: alert and oriented x 3 Testing Laboratory Results 11/03/20 07:08 11/03/20 07:08 PT 10.3 Seconds (9.0-12.0) 11/02/20 12:17 INR 1.0 (0.9-1.1) 11/02/20 12:17 Blood Type A Positive 11/02/20 15:29 Antibody Screen NEGATIVE 11/02/20 15:29 Electrocardiogram Date: 11/03/20 Findings: + SB @ (at 49) Chest X-Ray Date: 11/02/20 Findings: + NAD and + cardiomegaly Echocardiogram Date: 11/03/20 EF: 60% LV Function: normal RWMA: + none Other Findings: + atrial enlargement (RA/LA-moderately dilated) Valvular Disease: + MR (mild) TR- mild-moderate
[2020-11-03] MEDS ORDERED: PROPOFOL IV EMULSION 10 MG/ML 20 ML VIAL IV ONE (12:47)
[2020-11-03] MEDS ORDERED: LIDOCAINE HCL 2% 2 ML VIAL/AMP(20MG/ML) INFIL ONE (12:47)
--- NOTE | 2020-11-03 12:51 | GI REPORT ---
Patient Name: Romina Jensen Procedure Date: 11/03/2020 12:22 PM Date of : 1940 Admit Type: Inpatient Age: 79 Gender: Female Attending MD: Claus Valladares MD Procedure: Upper GI endoscopy Providers: Claus Valladraes MD Referring MD: Zan Hernandez Do Indications: Melena Medicines: Monitored Anesthesia Care Complications: No immediate complications. Estimated blood loss: None. Estimated Blood Loss: Estimated blood loss: none. Procedure: Pre-Anesthesia Assessment: - Prior Anticoagulants: The patient has taken no previous anticoagulant or antiplatelet agents. - ASA Grade Assessment: II - A patient with mild systemic disease. After obtaining informed consent, the endoscope was passed under direct vision. Throughout the procedure, the patient's blood pressure, pulse, and oxygen saturations were monitored continuously. The Endoscope was introduced through the mouth, and advanced to the second part of duodenum. The upper GI endoscopy was accomplished without difficulty. The patient tolerated the procedure well. Findings: The examined esophagus was normal. Diffuse moderate inflammation characterized by congestion (edema), erythema and mucus was found in the stomach. Biopsies were taken with a cold forceps for Helicobacter pylori testing. Estimated blood loss: none. Clips from previous procedures noted in the gastric body/fundus. No evidence of blood, bleeding, ulcers, AVMs. The duodenal bulb and second portion of the duodenum were normal. Impression: - Normal esophagus. - Gastritis. Biopsied. Recommendation: - Resume previous diet today. - Return patient to hospital [facility] for ongoing care. - Await pathology results. trend H/H, supportive care. Claus Valladares MD 11/03/2020 12:50:19 PM This report has been signed electronically. Note Initiated On: 11/03/2020 12:22 PM Number of Addenda: 0 I attest to the content of the Intraoperative Record and orders documented therein, exceptions below {[id number]}
--- NOTE | 2020-11-03 13:09 | Anesthesiology Progress Note ---
Date of Service November 03, 2020 Anesthesia Post Procedure Vital Signs Vital Signs: Temp Pulse Pulse Resp BP BP Pulse Ox 11/03/20 13:05 60 18 147/66 H 99 11/03/20 12:50 64 18 121/51 L 100 11/03/20 12:10 36.5 C 58 L 16 126/70 98 11/03/20 11:35 36.7 C 62 20 147/75 H 96 11/03/20 07:53 37.0 C 56 L 18 114/66 95 11/03/20 07:39 50 L 11/03/20 02:57 36.7 C 54 L 17 111/66 96 11/02/20 23:57 57 L 11/02/20 22:58 37 C 57 L 16 117/79 95 11/02/20 18:09 37 C 61 18 117/64 96 11/02/20 17:52 62 11/02/20 16:00 36.9 C 60 89 16 130/68 95 11/02/20 15:30 122/65 97 11/02/20 15:01 95 11/02/20 15:00 135/84 97 11/02/20 14:47 99 11/02/20 14:46 153/78 H 11/02/20 14:31 59 L 19 11/02/20 14:30 60 14 119/64 11/02/20 14:08 58 L 18 128/77 11/02/20 14:07 70 11 L 11/02/20 13:31 65 20 11/02/20 13:30 75 15 133/67 11/02/20 13:21 60 17 127/64 95 11/02/20 13:20 58 L 17 127/64 95 Pain Intensity Chest: Pain Intensity: 3 Bilateral Head: Pain Intensity: 5 Transfer of Care Handoff Completed per policy Notes Mental Status: alert / awake / arousable Patient Amnestic to Procedure: Yes Nausea / Vomiting: adequately controlled Pain: adequately controlled Airway Patency, RR, SpO2: stable & adequate BP & HR: stable & adequate Hydration State: stable & adequate Anesthetic Complications: no major complications apparent
--- NOTE | 2020-11-03 14:22 | Discharge Summary ---
Date of Service November 03, 2020 Admission HPI Per Admitting Provider This is a 79 yr old F who has a significant PMH of HTN, ARTHUR on CPAP, Hypothyroidism, Fibromyalgia, Rheumatoid arthritis, Osteoporosis, GERD, nutcracker esophagus, hx of PAF, macular degeneration who presents ED today sec ondary to multiple complaints for 1 to 2 weeks, but significantly worsened substernal chest pain that started today. Pt developed substernal chest pain this morning while at rest with radiation to L side of chest and to neck. Described as dull pain with occasional, "jags." She complains of SOB with exertion/steps. This is not new and she has had this for a few years. Denies SOB at rest. She took 1 nitro at home with minimal relief and received additional nitro and full dose aspirin in ED with resolution of symptoms. Chest pain made worse with palpation as well deep breathing. In regards to chest pain is does come and go since June, but today felt worse. She thought maybe related to heartburn. She has hx of hiatal hernia which was repaired. She tried OTC Gaviscon w/o relief. She also takes PPI BID. She does have hx of PAF and was on eliquis. This was dx on 06/2020. She stopped eliquis and metoprolol but stopped these on her own because of how she felt. She has not had a recurrence since. Further complains of LLQ abd pain and black stools, "coffee ground," for the past two days. She did not see black stool today, but did have diarrhea. She denies taking blood thinners or ASA or iron tablets. She denies f/c/s, cough, dizziness, change in vision but has chronic blurriness, n/v/ dysuria, increased freq with urination. Of significance She fell 3 weeks ago, landed on side and hit her head. She passed out for a few seconds and called for her . Has never happened before. She did not hit her chest. Pt also has had tremors all over body, "felt like seizures." Saw Dr. Ortiz 3 weeks ago due to hip pain. Was given prednisone due to pain and was referred to pain clinic but has not seen them yet. Pt with multiple complaints and difficult to keep on task. Daughter is at bedside. She does feel off balance and requires assist device. In ED patient remained hemodynamically stable. She was noted to have a drop in hemoglobin from 15.4 in July to 11.9 today[address] She underwent CT abdomen pelvis which revealed nonspecific colitis of left colon and a subacute/healing right pubic ring fracture. Chest x-ray revealed cardiomegaly without acute process. A 1.3 cm nodular opacity of the right lung base was unchanged likely a summation density. Her initial troponin was unremarkable and EKG was unchanged. She received IV fentanyl, nitroglycerin and 500 mls of IVF. Admission Exam Per Admitting Provider Constitutional: Elderly, F, vitals as above, NAD, sitting up in bed, pleasant, conversing easily Head: Normocephalic, Atraumatic Eyes: PERRL, conjunctivae normal, anicteric sclerae ENMT: external ear and nose normal, oropharynx normal Neck: trachea midline, no thyromegaly normal visual inspection Respiratory: normal respiratory effort, lungs clear to auscultation, no wheeze, rales, rhonchi. Normal insp/exp effort, no accessory muscle use Cardiovascular: RRR, no murmur, no edema Vessels: no JVD or carotid bruit Chest: normal inspection of chest Abdomen: normal bowel sounds, soft, mildly tender to palpation LLQ, no hepatosplenomegaly Musculoskeletal: no cyanosis or clubbing, extremities motor strength 5/5 Skin: no rashes, warm and dry normal turgor Neurologic: PERRL, EOMI, accommodation nl, no face palsy, no dysarthria CN's II-XI intact bilaterally and moves all extremities Psychiatric: A+Ox3, euthymic affect Lymphatic: no cervical or axillary lymphadenopathy : deferred Principal Diagnosis (1) Melena: (2) Anemia: (3) Chest pain: (4) Closed pelvic ring fracture: (5) Left sided colitis: (6) HTN (hypertension): Discharge Exam See below Discharge Data Allergies Allergy/AdvReac Type Severity Reaction Status Date / Time bee venom protein (honey bee) Allergy Intermediate "SWELLED Verified 11/03/20 12:06 ALL UP" Iodinated Contrast Media Allergy Intermediate PASSED Verified 11/03/20 12:06 OUT-BODY FELT COLD ALL OVER venlafaxine Allergy Unknown Unknown Verified 11/03/20 12:06 gabapentin AdvReac Intermediate HORRIBLE Verified 11/03/20 12:06 HEADACHES rosuvastatin [From Crestor] AdvReac Intermediate PAIN IN Verified 11/03/20 12:06 JOINTS atorvastatin AdvReac Mild PAIN IN Verified 11/03/20 12:06 JOINTS shellfish derived AdvReac Mild Headache Verified 11/03/20 12:06 adalimumab [From Humira] AdvReac Unknown Unknown Verified 11/03/20 12:06 Consultations 11/02/20 14:16 ED Decision to Admit Stat 11/02/20 15:22 Consult Gastroenterology Routine 11/02/20 15:49 Consult Orthopedic Surgery Routine Procedures Performed Operation Date: 11/03/20 15:30 Actual Procedures p EGD Biopsy Cytology - Claus Valladares MD Ordered Studies 11/02/20 13:36 CT Abd and Pelvis [CT abd pelvis wo con] Stat Current Diagnoses Acute posthemorrhagic anemia (11/02/20) Anemia, unspecified (11/02/20) Hypothyroidism, unspecified (11/02/20) Obstructive sleep apnea (adult) (pediatric) (11/02/20) Essential (primary) hypertension (11/02/20) Left sided colitis without complications (11/02/20) Melena (11/02/20) Rheumatoid arthritis, unspecified (11/02/20) Chest pain, unspecified (11/02/20) Lower abdominal pain, unspecified (11/02/20) Multiple fractures of pelvis with stable disruption of pelvic ring, initial encounter for closed fracture (11/02/20) Encounter for prophylactic measures, unspecified (11/02/20) Allergies bee venom protein (honey bee) Allergy (Intermediate, Verified 11/03/20 12:06) "SWELLED ALL UP" Iodinated Contrast Media Allergy (Intermediate, Verified 11/03/20 12:06) PASSED OUT-BODY FELT COLD ALL OVER venlafaxine Allergy (Unknown, Verified 11/03/20 12:06) Unknown gabapentin Adverse Reaction (Intermediate, Verified 11/03/20 12:06) HORRIBLE HEADACHES rosuvastatin [From Crestor] Adverse Reaction (Intermediate, Verified 11/03/20 12:06) PAIN IN JOINTS atorvastatin Adverse Reaction (Mild, Verified 11/03/20 12:06) PAIN IN JOINTS shellfish derived Adverse Reaction (Mild, Verified 11/03/20 12:06) Headache adalimumab [From Humira] Adverse Reaction (Unknown, Verified 11/03/20 12:06) Unknown Height/Weight/Isolation Height 5 ft Weight 54.3 kg Chemistry 11/02/20 11/03/20 12:17 07:08 Sodium 142 144 Potassium 3.6 3.7 Chloride 108 H 111 H Carbon Dioxide 31 28 Anion Gap 3.0 5.0 BUN 21 H 16 Creatinine 0.77 0.68 Glucose 86 77 Hospital Course (1) Melena: (2) Anemia: This is a 79 yr old F who has a significant PMH of HTN, ARTHUR on CPAP, Hypothyroidism, Fibromyalgia, Rheumatoid arthritis, Osteoporosis, GERD, nutcracker esophagus, hx of PAF, macular degeneration who presents ED today secondary to multiple complaints for 1 to 2 weeks, but significantly worsened substernal chest pain that started today. Pt presenting with CP pain which is addressed below. Also reports Melena x 2 days with evidence of drop in hemoglobin from 15 to 11.9 today. FOBT negative in ED EGD done f/u in office with biopsy results DC home today obtain anemia panel, iron, tibc, ferritin, tsat, b12, folate PO Protonix 40mg BID (3) Chest pain: pt with reports of substernal CP, radiating to left chest and neck it did improve w/ nitro; however was reproducible to palpation and worse with inspiration obtain rib series troponins are negative, Chest hurt c pressure from the probe during Echo, ecg reviewed Echocardiogram done (4) Closed pelvic ring fracture: pt sustained fall 3 weeks ago evidence of sub acute healing R pelvic ring fx ortho saw her-Closed pelvic ring fracture: Patient can be weightbearing as tolerated with the assistance of a walker Pain control with p.o. medication such as Tylenol or ibuprofen Ice 3-4 times a day for 15 to 20 minutes Stable from an orthopedic standpoint. Recommend she follows up with Dr. Ortiz 3-4 weeks after discharge for new pelvis x-rays. PT/OT obtain vit D level (5) Left sided colitis: GI consulted obtain stool studies, cdiff afebile, wbc wnl (6) HTN (hypertension): continue losartan hold hctz for now monitor daily and resume when able BP elevated in ED, likely situational, continue to monitor (7) Hypothyroidism: check tsh/t4 continue levothyroxine (8) Rheumatoid arthritis: follows rheumatology also has Fibromyagia receives monthly humira inj along with elavil, cymbalta for fibro Has chronic back pain - on hydrocodone and neuro spinal stimulator to have outpt consultation with pain management per pt (9) ARTHUR (obstructive sleep apnea): CPAP at HS (10) DVT prophylaxis: SCD/TEDS for now given concern for melena/drop in hgb reassess daily need for chemical prophylaxis Dispo: Home today on PPI PCP: Brittany Full Code Labs checked, Repleted Mg++ ROS-No Headache, No Visual Changes, No Nausea, No Vomiting, No Fever, No Chills, No Neck Pain or Stiffness, No Chest Pain, No Palpitations, No SOB, No MENDEZ, No Cough, No Sputum, No Wheezing, No Abdominal Pain, No Diarrhea, No Hematemesis, No Hemoptysis, No Unexpected Weight Loss, No Flank pain, No Melena, No Hematochezia, No Frequency, No Urgency, No Burning, No Hematuria, No Rashes, No Diaphoresis. Appetite is Normal, c/o rib pain Physical Exam Gen-AAO x 3, NAD, Afebrile Head-NCAT, EOMI, PERRLA, Anicteric Sclera, No Posterior Pharyngeal Erythema Neck-Supple, No JVD, No Thyromegaly, No Masses, No LAD, No Bruits Lungs-Clear to Auscultation Bilaterally, No Rales, No Rhonchi, No Wheezing, No Crepitus Chest-No S4, +S1, +S2, No S3, No Murmurs, No Rubs, No Gallops, No Ectopy Abdomen-Soft, Bowel Sounds Present, Non Tender, Non Distended, No Hepatomegaly, No Splenomegaly, No Palpable Masses, No Rebound, No Rigidity, No Guarding Musculoskeletal-Full Range of Motion Bilaterally, No CVAT Extremities-No Cyanosis, No Clubbing, No Edema Nuero-Cranial Nerves II-XII grossly intact, Motor WNL, DTRs WNL, Strength WNL, Non Focal Psych-Normal Mood Total Time Total Time Spent Total Time Spent (In Minutes): 45 mins Total Time Includes: Examination of the Patient, Discharge Planning, Medication Reconciliation and Communication With Other Providers Discharge Plan Discharge Items Patient Disposition: Home - Self-Care Reason For Visit: Chest Pain, abd pain Discharge Diagnosis: (1) Melena: (2) Anemia: (3) Chest pain: (4) Closed pelvic ring fracture: (5) Left sided colitis: (6) HTN (hypertension) Activity: Resume your previous activity Lifting: Gradually increase as tolerated Bathing: No limitations Exercise/Sports: Gradually increase as tolerated Driving/Machine Use: No limitations Weightbearing: Full weightbearing Non-emergency contact: Primary Care Provider and Training And Development Professional Call non-emergency contact if: you have any medication questions Follow-up/Referrals: Claus Valladares MD [Physician] - (next week) Acosta Soto MD [Primary Care Provider] - Diet: Heart Healthy Addtl Attending Provider Instructions: Follow with GI for Biopsy Results Pending Studies at Discharge: No Stand-Alone Forms: My [facility] [employer], Smoking Cessation Medications and DC Order Prescriptions: New acetaminophen 325 mg Tablet 650 mg PO Q6H PRN (Reason: fever or pain) Qty: 100 RF: 0 Continued Gaviscon 95-358 mg/15 mL Suspension 2 ml PO DIRECTED PRN (Reason: Acid Reflux) RF: 0 polyethylene glycol 3350 [Miralax] 17 gram Powder In Packet 17 g PO DAILY PRN (Reason: Constipation) RF: 0 armodafinil [Nuvigil] 250 mg Tablet 250 mg PO QAM RF: 0 Centrum Silver Women 8 mg iron-400 mcg-300 mcg Tablet 1 tab PO QAM RF: 0 lorazepam 0.5 mg Tablet 0.5 mg PO QAM PRN (Reason: anxiety) RF: 0 calcium-vitamin D3-vitamin K [Viactiv] 650 mg-12.5 mcg-40 mcg Tablet,Chewable 2 tab PO DAILY RF: 0 diphenhydramine HCl [Benadryl] 25 mg capsule 50 mg PO HS PRN (Reason: Sleep) RF: 0 levothyroxine 75 mcg Tablet 75 mcg PO QAM RF: 0 pantoprazole 40 mg Tablet,Delayed Release (Dr/Ec) 40 mg PO BID RF: 0 zinc 50 mg Tablet 50 mg PO DAILY RF: 0 Humira 40 mg/0.8 mL Syringe Kit 40 mg SUBCUT WK RF: 0 duloxetine 30 mg Capsule,Delayed Release(Dr/Ec) 30 mg PO QAM RF: 0 cholecalciferol (vitamin D3) [Vitamin D3] 25 mcg (1,000 unit) Tablet 1,000 unit PO DAILY RF: 0 PreserVision AREDS [id number],320-226-200 [id number] Capsule 2 cap PO DAILY RF: 0 cyanocobalamin (vitamin B-12) [Vitamin B-12] 500 mcg Lozenge 500 mcg PO DAILY RF: 0 hydrocodone-acetaminophen 10-325 mg tablet 1 tab PO Q6H PRN (Reason: Pain) RF: 0 hydrochlorothiazide 25 mg Tablet 25 mg PO DAILY RF: 0 losartan 100 mg Tablet 100 mg PO DAILY RF: 0 Discharge Orders: Discharge Order (Routine); Ordered 11/03/20 Ordered By: Zan Santillan/Other Patient Handouts: Discharge Instructions- Eating a ... Admission Data Admit Date/Time: 11/02/20 14:39 Attending Provider: Zan Hernandez Admit Provider: Chad Bourgeois Primary Care Provider: Acosta Soto Other Providers: Gualberto Ochoa ; Chad Bourgeois ; Acosta Rees Other Interventions: Discharge Summary Assessment (RN) Last Done: 11/03/20 13:35
--- NOTE | 2020-11-03 16:10 | Electrocardiogram Report ---
Test Reason : Blood Pressure : / mmHG Vent. Rate : 049 BPM Atrial Rate : 049 BPM P-R Int : 130 ms QRS Dur : 092 ms QT Int : 464 ms P-R-T Axes : 058 005 025 degrees QTc Int : 419 ms Sinus bradycardia Otherwise normal ECG When compared with ECG of 02-NOV-2020 12:11, No significant change was found Confirmed by Praneeth Quiroga ([id number]) on 11/03/2020 4:10:21 PM Referred By: REFERRED SELF Confirmed By:Praneeth Quiroga
== END 2020-11-03 15:46 | disposition home or self-care (01) ==
LOC: 2N 12:05 → ED 12:05 → SUATTDRO 14:39 → 2N 16:00

== ENCOUNTER 2021-01-30 12:58 | Observation (INO) ==
[2021-01-30] MEDS ORDERED: ASPIRIN CHEW 324 MG PO STA (13:16)
[2021-01-30 14:10] LABS: Appearance Urine Clear (Clear); Bilirubin Urine Negative (Negative); Blood Urine Negative (Negative); Color Urine Yellow; Glucose Urine UA Negative (Negative); Ketones Urine Negative (Negative); Leukocyte Esterase Urine Negative (Negative); Nitrite Urine Negative (Negative); Protein Urine Negative (Negative); Specific Gravity Urine 1.016 (1.000-1.030); Urobilinogen Urine Negative (Negative)
--- NOTE | 2021-01-30 14:10 | XRay Report ---
XR chest 1V portable CLINICAL HISTORY: Atypical chest pain COMPARISON STUDY: 11/14/2020 FINDINGS: Heart is enlarged. There is aortic tortuosity. There is a left subclavian dual-chamber cent ral venous pacemaker. Spinal stimulator electrodes are visualized. There is no failure. There is ham r basilar atelectasis. There is minor blunting of the lateral costophrenic angles suggesting trace ef fusions. There is no overt failure. There are old rib deformities. There is a reverse total left shou lder arthroplasty. There are arthritic changes present within the right shoulder with radiographic ev idence of chronic rotator cuff tear/degeneration[ IMPRESSION: 1. Cardiomegaly and suspected trace pleural effusions 2. Mild basilar atelectasis ACT 112: Negative or not required by law. Electronically signed by: Norris Keane M.D. 01/30/2021 2:08 PM
[2021-01-30 14:19] LABS: Basophils # (auto) 0.02 K/uL (0-0.2); Basophils % (auto) 0.4 %; Eosinophils # (auto) 0.06 K/uL (0-0.5); Eosinophils % (auto) 1.2 %; Hematocrit (blood only) 36.1 % (37-47); Hemoglobin 11.9 g/dL (12.0-16.0); Immature Granulocytes # (auto) 0.01 K/uL (0.00-0.02); Immature Granulocytes % (auto) 0.2 %; Lymphocytes % (auto) 15.6 %; Mean Corpuscular Hemoglobin 30.9 pg (25-34); Mean Corpuscular Volume 93.8 fL (80-100); Mean Platelet Volume 8.8 fL (7.4-10.4); Monocytes # (auto) 0.43 K/uL (0.11-0.59); Monocytes % (auto) 8.4 %; Neutrophils % (auto) 74.2 %; Platelet Count 177 K/uL (130-400); RDW Coefficient of Variation 17.6 % (11.5-14.5); RDW Standard Deviation 60.6 fL (36.4-46.3); Red Blood Count 3.85 M/uL (4.2-5.4); White Blood Count 5.12 K/uL (4.8-10.8)
[2021-01-30 14:26] LABS: Partial Thromboplastin Ratio 0.9; Partial Thromboplastin Time 24.8 Seconds (21.0-31.0); Prothrombin Time 10.6 Seconds (9.0-12.0)
[2021-01-30 14:27] LABS: D Dimer 4030 ug/L FEU (0-500)
[2021-01-30 14:31] LABS: Alanine Aminotransferase 30 U/L (12-78); Albumin Level 3.4 gm/dl (3.4-5.0); Aspartate Aminotransferase 24 U/L (15-37); Bilirubin Direct 0.1 mg/dl (0-0.2); Blood Urea Nitrogen 16 mg/dl (7-18); Calcium 8.9 mg/dl (8.5-10.1); Carbon Dioxide 32 mmol/L (21-32); Chloride 107 mmol/L (98-107); Creatinine Clr Calc Pharmacy 42.7 ml/min; Est GFR (African American) 84.4 ml/min; Est GFR (Non-African American) 72.8 ml/min; Glucose 82 mg/dl (70-99); Lipase 740 U/L (73-393); Potassium 4.3 mmol/L (3.5-5.1); Sodium 141 mmol/L (136-145)
[2021-01-30 14:36] LABS: Alkaline Phosphatase 69 U/L (45-117); Bilirubin,Total 0.3 mg/dl (0.2-1); NT Pro B Type Natriuretic Pept 349 pg/ml (0-1800); Total Protein 6.6 gm/dl (6.4-8.2); Troponin I < 0.015 ng/ml (0-0.045)
[2021-01-30] MEDS ORDERED: OPTIRAY 320 125ml IV ONE ×2 (15:23→15:36)
--- NOTE | 2021-01-30 15:23 | Emergency Department Note ---
History of Present Illness General Chief complaint: Shortness of Breath/Dyspnea Stated complaint: TROUBLE BREATHING, PACE MAKER, SWELLING ANKLES Time Seen by Provider: 01/30/21 13:15 History of Present Illness Provider complaint: Shortness of breath chest pain Onset (ago): week(s) 3 Location: chest and abdomen Radiation: neck Severity: moderate Maximum Pain Intensity: 5 Current Pain Intensity: 0 Quality: + other (Heaviness) Relieved By: + none Exacerbated By: + none Associated symptoms: + chest pain and + shortness of breath; no cough, no headaches, no nausea/vomiting, no syncope and no weakness 72-year-old female presents emergency department for shortness of breath. Patient reports her shortness of breath to be gone for last 3 weeks. She is also reporting chest pain. She reports the pain is a heaviness in the center of her chest that radiates to her neck. She states the pain is usually moderate in nature but she is not having any current pain. She states she is also reporting some left-sided flank pain and feeling lightheaded. She states she is filling up with fluid and her legs are more swollen. Home Medications Medication Instructions Recorded Confirmed Type armodafinil [Nuvigil] 250 mg PO QAM 07/15/18 01/30/21 History polyethylene glycol 3350 [Miralax] 17 g PO DAILY PRN 07/15/18 01/30/21 History Centrum Silver Women 1 tab PO QAM 10/20/18 01/30/21 History calcium-vitamin D3-vitamin K 2 tab PO DAILY 03/05/19 01/30/21 History [Viactiv] diphenhydramine HCl 25 mg capsule 50 mg PO HS PRN 03/30/19 01/30/21 History Humira 40 mg SUBCUT SA 11/02/20 01/30/21 History PreserVision AREDS 1 cap PO BID 11/02/20 01/30/21 History cholecalciferol (vitamin D3) 1,000 unit PO DAILY 11/02/20 01/30/21 History [Vitamin D3] cyanocobalamin (vitamin B-12) 500 mcg PO QDD 11/02/20 01/30/21 History [Vitamin B-12] levothyroxine 75 mcg PO QAM 11/02/20 01/30/21 History losartan 100 mg PO DAILY 11/02/20 01/30/21 History zinc 50 mg PO QDD 11/02/20 01/30/21 History acetaminophen 650 mg PO Q6H PRN #100 tab 11/03/20 01/30/21 Rx amiodarone 200 mg PO DAILY #30 tab 11/14/20 01/30/21 Rx escitalopram oxalate [Lexapro] 10 mg PO DAILY 01/30/21 01/30/21 History sucralfate 1 g PO TIDM 01/30/21 01/30/21 History Allergies Allergy/AdvReac Type Severity Reaction Status Date / Time bee venom protein (honey bee) Allergy Intermediate "SWELLED Verified 01/30/21 15:37 ALL UP" Iodinated Contrast Media Allergy Intermediate PASSED Verified 01/30/21 15:37 OUT-BODY FELT COLD ALL OVER venlafaxine Allergy Unknown Unknown Verified 01/30/21 15:37 gabapentin AdvReac Intermediate HORRIBLE Verified 01/30/21 15:37 HEADACHES rosuvastatin [From Crestor] AdvReac Intermediate PAIN IN Verified 01/30/21 15:37 JOINTS atorvastatin AdvReac Mild PAIN IN Verified 01/30/21 15:37 JOINTS shellfish derived AdvReac Mild Headache Verified 01/30/21 15:37 Past Med/Surg History Medical History Age related osteoporosis Dyslipidemia Fatigue Per 03/2018 endocrine eval, felt to be Subacute thyroiditis likely in thyrotoxic phase. Pt still experiencing fatigue, is going to seek second opinion. Fibromyalgia GERD (gastroesophageal reflux disease) History of concussion MAY 2018 - 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 GETS HEADACHES FROM History of skin cancer Hx of sleep apnea COULDN'T TOLERATE CPAP/REPEAT TESTING SHOWED "DIDN'T NEED" CPAP Hypertension ARTHUR (obstructive sleep apnea) Osteoarthritis Rheumatoid arthritis On Xeljanz Scoliosis Trouble swallowing With specific foods (steak), 2/2 hiatal hernia repair. If food gets stuck she gets chest pain and was given Nitroglycerin for this. Urinary incontinence Surgical History History of appendectomy History of bilateral cataract extraction History of bladder suspension procedure History of cardiac cath 4 YRS AGO..CHEST PAIN...ALTOONA - NO FINDINGS...HIATAL HERNIA DX History of colonoscopy History of endoscopy DILATION OF ESOPHAGUS History of eye surgery LASER History of laparoscopic cholecystectomy History of left knee replacement History of lumbar fusion History of partial colectomy History of partial hysterectomy History of rectocele REPAIR WITH MESH AND MESH SINCE REMOVED History of repair of hiatal hernia History of repair of right rotator cuff History of right knee surgery BRUSA SAC REMOVED History of total left knee replacement History of urologic surgery BLADDER TAC S/P lumbar fusion S/P repair of paraesophageal hernia Family History Sister Colorectal cancer Hypertension Mother Stroke Hypertension Other No pertinent family history Social History Smoking Status: Never smoker Hx Alcohol Use: No Hx Substance Use: No Preferred Language: Kazakh Communication Ability: Effective Synthetic Soil Blocks Pulper Required: No Beliefs That Will Affect Care: None marital status: Current Living Situation: Spouse Feels Safe at Home: Yes Assistive Devices: Cane and Denture - Upper Review of Systems A total of 10 systems reviewed and were otherwise negative Physical Exam Vital Signs Vital Signs - 24 hr 01/30/21 13:04 01/30/21 13:40 01/30/21 13:43 Temperature 36.8 C Temperature Source Temporal Artery Scan Pulse Rate 65 62 64 Pulse Rate from SpO2 Sensor 68 Pulse Rhythm Respiratory Rate 16 14 17 Respiratory Effort / Characteristics Non-Labored Non-Labored Spontaneous Respiratory Depth Normal Normal Respiratory Pattern Regular Blood Pressure 145/82 H 165/82 H Blood Pressure Mean 103 109 Pulse Oximetry 96 95 Oxygen Delivery Method Room Air Room Air Room Air Sepsis Recent Fever Within 48 Hours No Sepsis New/Unexplained Change in Mental Status No Sepsis Action Taken by Nursing No Action Required 01/30/21 13:48 01/30/21 13:50 01/30/21 13:58 Temperature Temperature Source Pulse Rate 60 60 Pulse Rate from SpO2 Sensor 60 Pulse Rhythm Regular Respiratory Rate 18 15 Respiratory Effort / Characteristics Respiratory Depth Respiratory Pattern Blood Pressure Blood Pressure Mean Pulse Oximetry 96 95 96 Oxygen Delivery Method Room Air Room Air Sepsis Recent Fever Within 48 Hours Sepsis New/Unexplained Change in Mental Status Sepsis Action Taken by Nursing 01/30/21 14:00 01/30/21 14:01 01/30/21 14:02 Temperature Temperature Source Pulse Rate 60 60 60 Pulse Rate from SpO2 Sensor 60 60 60 Pulse Rhythm Respiratory Rate 14 18 12 Respiratory Effort / Characteristics Respiratory Depth Respiratory Pattern Blood Pressure 144/74 H Blood Pressure Mean 97 Pulse Oximetry 95 96 97 Oxygen Delivery Method Sepsis Recent Fever Within 48 Hours Sepsis New/Unexplained Change in Mental Status Sepsis Action Taken by Nursing 01/30/21 14:30 01/30/21 15:00 01/30/21 16:00 Temperature Temperature Source Pulse Rate 60 60 60 Pulse Rate from SpO2 Sensor 60 60 60 Pulse Rhythm Respiratory Rate 16 14 16 Respiratory Effort / Characteristics Respiratory Depth Respiratory Pattern Blood Pressure 155/78 H Blood Pressure Mean 103 Pulse Oximetry 95 94 94 Oxygen Delivery Method Sepsis Recent Fever Within 48 Hours Sepsis New/Unexplained Change in Mental Status Sepsis Action Taken by Nursing 01/30/21 17:00 Temperature Temperature Source Pulse Rate 60 Pulse Rate from SpO2 Sensor 60 Pulse Rhythm Respiratory Rate 16 Respiratory Effort / Characteristics Respiratory Depth Respiratory Pattern Blood Pressure 130/71 Blood Pressure Mean 90 Pulse Oximetry 94 Oxygen Delivery Method Sepsis Recent Fever Within 48 Hours Sepsis New/Unexplained Change in Mental Status Sepsis Action Taken by Nursing Physical Exam GENERAL: She is oriented to person, place, and time. She appears well-developed and well-nourished. She does not appear distressed. HENT: Exam performed. -Head: Normocephalic and atraumatic. -Right Ear: External ear normal. No mastoid tenderness. -Left Ear: External ear normal. No mastoid tenderness. -Mouth/Throat: The oropharynx is clear and moist. No trismus in the jaw. No dental abscesses or uvula swelling. No oropharyngeal exudate or tonsillar abscesses. EYES: Conjunctivae and EOM are normal. Pupils are equal, round, and reactive to light. Right eye exhibits no discharge. Left eye exhibits no discharge. No scleral icterus. NECK: Normal range of motion. Neck supple. No JVD present. No spinous process tenderness present. No carotid bruit present. No rigidity. No tracheal deviation and normal range of motion present. No Brudzinski's sign and no Kernig's sign noted. CV: Normal rate, regular rhythm, normal heart sounds and intact distal pulses. There is 1+ bilateral pitting edema of the bilateral lower extremities. Palpable radial pulses bue. PULM/CHEST: Effort normal and breath sounds normal. No respiratory distress. No stridor. She has no wheezes. She has no rales. -Chest Wall: She exhibits no tenderness. ABD: The abdomen is soft. Bowel sounds are normal. She has no distension. No mass is present. There is no tenderness. There is no rebound, no guarding, no Maldonado's sign and no tenderness at McBurney's point. Rovsig negative. Left- sided CVA tenderness. MUSC/SKEL: Normal range of motion. There is no tenderness or deformity. LYMPH: No cervical adenopathy. NEURO: She is alert and oriented to person, place, and time. She has normal strength. No cranial nerve deficit or sensory deficit. Coordination and gait normal. GCS eye subscore is 4. GCS verbal subscore is 5. GCS motor subscore is 6. Cerebellar tests wnl. SKIN: Skin is warm and dry. She is not diaphoretic. PSYCH: She has a normal mood and affect. Behavior is normal. Judgment and thought content normal. Course Course 1315: The patient was evaluated in room B6. A complete history and physical exam was performed Cardiac monitoring: An order was placed for continuous cardiac monitoring. The monitor shows a rate of 60 with sinus rhythm 1640: Vital signs stable. Labs within normal limits with the exception of elevated D-dimer. CTA of the chest and abdomen pelvis negative. Patient still reporting intermittent chest discomfort which comes and goes. Patient was offered inpatient observation for rule out ACS and cardiology evaluation which she and the daughter prefer to do. Discussed case with Suzan jiménez [facility] hospitalist who states to admit to Dr. Blackmon. Administered Medications Discontinued Medications Aspirin (Aspirin Chew 324 Mg) 324 mg PO NOW STA Stop: 01/30/21 13:17 Last Admin: 01/30/21 14:03 Dose: 324 mg Documented by: [id number] Diphenhydramine HCl (Diphenhydramine 50 Mg/Ml Vial) 25 mg IV NOW STA Stop: 01/30/21 15:25 Last Admin: 01/30/21 15:30 Dose: 25 mg Documented by: [id number] Ioversol (Optiray 320 125ml) 119 ml IV ONCE ONE Stop: 01/30/21 15:24 Last Admin: 01/30/21 16:09 Dose: Not Given Documented by: [id number] Ioversol (Optiray 320 125ml) 119 ml IV ONCE ONE Stop: 01/30/21 15:37 Last Admin: 01/30/21 15:36 Dose: 119 ml Documented by: [id number] Methylprednisolone (Methylprednisolone 125 Mg/2 Ml Vial) 125 mg IV NOW STA Stop: 06/29/21 15:25 Last Admin: 01/30/21 15:30 Dose: 125 mg Documented by: [id number] Medical Decision Making Laboratory Data Result diagrams: 01/30/21 14:07 01/30/21 14:07 Lab Results 01/30/21 01/30/21 01/30/21 Range/Units 14:03 14:07 14:07 WBC 5.12 (4.8-10.8) K/uL RBC 3.85 L (4.2-5.4) M/uL Hgb 11.9 L (12.0-16.0) g/dL Hct 36.1 L (37-47) % MCV 93.8 (80-100) fL MCH 30.9 (25-34) pg MCHC 33.0 (32-36) g/dL RDW Std Deviation 60.6 H (36.4-46.3) fL RDW Coeff of Kim 17.6 H (11.5-14.5) % Plt Count 177 (130-400) K/uL MPV 8.8 (7.4-10.4) fL Immature Gran % (Auto) 0.2 % Neut % (Auto) 74.2 % Lymph % (Auto) 15.6 % [place] % (Auto) 8.4 % Eos % (Auto) 1.2 % Baso % (Auto) 0.4 % Neut # (Auto) 3.80 (1.4-6.5) K/uL Lymph # (Auto) 0.80 L (1.2-3.4) K/uL [place] # (Auto) 0.43 (0.11-0.59) K/uL Eos # (Auto) 0.06 (0-0.5) K/uL Baso # (Auto) 0.02 (0-0.2) K/uL Immature Gran # (Auto) 0.01 (0.00-0.02) K/uL PT 10.6 (9.0-12.0) Seconds INR 1.0 (0.9-1.1) APTT 24.8 (21.0-31.0) Seconds PTT Ratio 0.9 D-Dimer 4030 H* (0-500) ug/L FEU Sodium (136-145) mmol/L Potassium (3.5-5.1) mmol/L Chloride (98-107) mmol/L Carbon Dioxide (21-32) mmol/L Anion Gap (3-11) BUN (7-18) mg/dl Creatinine (0.6-1.2) mg/dl Est Cr Clr Drug Dosing ml/min Est GFR ( Amer) ml/min Est GFR (Non-Af Amer) ml/min BUN/Creatinine Ratio (10-20) Glucose (70-99) mg/dl Calcium (8.5-10.1) mg/dl Total Bilirubin (0.2-1) mg/dl Direct Bilirubin (0-0.2) mg/dl AST (15-37) U/L ALT (12-78) U/L Alkaline Phosphatase (45-117) U/L Troponin I (0-0.045) ng/ml NT-Pro-B Natriuret Pep (0-1800) pg/ml Total Protein (6.4-8.2) gm/dl Albumin (3.4-5.0) gm/dl Lipase (73-393) U/L Urine Color Yellow Urine Appearance Clear (Clear) Urine pH 7.0 (4.5-7.5) Ur Specific [place] 1.016 (1.000-1.030) Urine Protein Negative (Negative) Urine Glucose (UA) Negative (Negative) Urine Ketones Negative (Negative) Urine Blood Negative (Negative) Urine Nitrite Negative (Negative) Urine Bilirubin Negative (Negative) Urine Urobilinogen Negative (Negative) Ur Leukocyte Esterase Negative (Negative) COVID-19 Eval Order 01/30/21 01/30/21 Range/Units 14:07 17:11 WBC (4.8-10.8) K/uL RBC (4.2-5.4) M/uL Hgb (12.0-16.0) g/dL Hct (37-47) % MCV (80-100) fL MCH (25-34) pg MCHC (32-36) g/dL RDW Std Deviation (36.4-46.3) fL RDW Coeff of Kim (11.5-14.5) % Plt Count (130-400) K/uL MPV (7.4-10.4) fL Immature Gran % (Auto) % Neut % (Auto) % Lymph % (Auto) % [place] % (Auto) % Eos % (Auto) % Baso % (Auto) % Neut # (Auto) (1.4-6.5) K/uL Lymph # (Auto) (1.2-3.4) K/uL [place] # (Auto) (0.11-0.59) K/uL Eos # (Auto) (0-0.5) K/uL Baso # (Auto) (0-0.2) K/uL Immature Gran # (Auto) (0.00-0.02) K/uL PT (9.0-12.0) Seconds INR (0.9-1.1) APTT (21.0-31.0) Seconds PTT Ratio D-Dimer (0-500) ug/L FEU Sodium 141 (136-145) mmol/L Potassium 4.3 (3.5-5.1) mmol/L Chloride 107 (98-107) mmol/L Carbon Dioxide 32 (21-32) mmol/L Anion Gap 2.0 L (3-11) BUN 16 (7-18) mg/dl Creatinine 0.78 (0.6-1.2) mg/dl Est Cr Clr Drug Dosing 42.7 ml/min Est GFR ( Amer) 84.4 ml/min Est GFR (Non-Af Amer) 72.8 ml/min BUN/Creatinine Ratio 20.0 (10-20) Glucose 82 (70-99) mg/dl Calcium 8.9 (8.5-10.1) mg/dl Total Bilirubin 0.3 (0.2-1) mg/dl Direct Bilirubin 0.1 (0-0.2) mg/dl AST 24 (15-37) U/L ALT 30 (12-78) U/L Alkaline Phosphatase 69 (45-117) U/L Troponin I < 0.015 (0-0.045) ng/ml NT-Pro-B Natriuret Pep 349 (0-1800) pg/ml Total Protein 6.6 (6.4-8.2) gm/dl Albumin 3.4 (3.4-5.0) gm/dl Lipase 740 H (73-393) U/L Urine Color Urine Appearance (Clear) Urine pH (4.5-7.5) Ur Specific [place] (1.000-1.030) Urine Protein (Negative) Urine Glucose (UA) (Negative) Urine Ketones (Negative) Urine Blood (Negative) Urine Nitrite (Negative) Urine Bilirubin (Negative) Urine Urobilinogen (Negative) Ur Leukocyte Esterase (Negative) COVID-19 Eval Order Covid19 at [facility] Imaging Data Radiologist's Impression: Chest X-Ray 01/30/21 13:16 XR chest 1V portable CLINICAL HISTORY: Atypical chest pain COMPARISON STUDY: 11/14/2020 FINDINGS: Heart is enlarged. There is aortic tortuosity. There is a left subclavian dual-chamber central venous pacemaker. Spinal stimulator electrodes are visualized. There is no failure. There is minor basilar atelectasis. There is minor blunting of the lateral costophrenic angles suggesting trace effusions. There is no overt failure. There are old rib deformities. There is a reverse total left shoulder arthroplasty. There are arthritic changes present within the right shoulder with radiographic evidence of chronic rotator cuff tear/degeneration[ IMPRESSION: 1. Cardiomegaly and suspected trace pleural effusions 2. Mild basilar atelectasis ACT 112: Negative or not required by law. Electronically signed by: Norris Keane M.D. 01/30/2021 2:08 PM Abdomen/Pelvis CT 01/30/21 13:34 CT SCAN OF THE ABDOMEN AND PELVIS WITHOUT IV CONTRAST CLINICAL HISTORY: Left flank pain. COMPARISON STUDY: Abdominal CT dated 11/02/2020 . TECHNIQUE: CT scan of the abdomen and pelvis is performed from the lung bases to the proximal femora. Images are reviewed in the axial, sagittal, and coronal planes. IV contrast was not administered for this examination as per the referring clinician. Note that the examination was performed in suboptimal fashion without oral and IV contrast. There is mild motion artifact. A dose lowering technique was utilized adhering to the principles of ALARA. FINDINGS: Lung bases: The heart is enlarged and without pericardial effusion. Pacemaker leads are noted. A fat-containing Bochdalek hernia is seen at the left lung base. There is bibasilar scarring/atelectasis. There are trace pleural effusions with bibasilar scarring/atelectasis. There is a small to moderate hiatal hernia. Liver: The unenhanced liver is normal in size, contour, and attenuation. There is no intrahepatic biliary ductal dilatation. Gallbladder: Surgically absent noting clips in the gallbladder fossa. Spleen: Normal in size and attenuation. Pancreas: The unenhanced pancreas is moderately atrophic and grossly unremarkable. Adrenal glands: Unremarkable. Kidneys: The unenhanced kidneys demonstrate cortical atrophy and are without hydronephrosis. There are no renal calculi identified. There is no evidence of contour deforming renal mass lesion. Abdominal vasculature: The abdominal aorta is normal in course and caliber noting mild atherosclerotic calcification. Bowel: Surgical clips are again noted in the stomach. There is mild to moderate sigmoid diverticulosis without CT evidence of acute diverticulitis. No bowel ob struction is identified. Fecal retention is noted throughout the colon. A duodenal diverticulum is noted. The appendix is not identified and reported surgically absent. Peritoneum: There is no intraperitoneal free air. Trace ascites is seen in the pelvis. Lymphadenopathy: None. Pelvic viscera: The bladder is normal as visualized. The uterus is surgically absent. No adnexal lesion is seen. Skeletal structures: The skeletal structures are osteopenic. There is advanced lumbosacral spondylosis and scoliosis. Spinal fusion is noted at L5-S1. No lytic or blastic lesions are seen. There are subacute/healing bilateral anterior 6th rib fractures. These are new from 11/02/2020. There has been continued healing of right pubic ring fractures as compared to previous. Moderate to advanced arthritic change is seen in the right hip. A neurostimulator device is present in the left gluteal soft tissues. Leads enter the central canal in the lower thoracic region. IMPRESSION: 1. Suboptimal examination without oral and IV contrast. 2. There are subacute/healing bilateral anterior 6th rib fractures. These are new from 11/02/2020. Correlate for point tenderness. 3. Cardiomegaly. Cardiac pacemaker leads are new from previous. 4. Trace pleural effusions. 5. A small volume of nonspecific free fluid is seen in the pelvis. 6. Additional findings as above. ACT 112: Negative or not required by law. Electronically signed by: Alexi Avendano M.D. 01/30/2021 3:42 PM Chest CTA 01/30/21 14:29 CT ANGIOGRAM OF THE CHEST CLINICAL HISTORY: Shortness of breath. Possible pulmonary embolism COMPARISON STUDY: 01/06/2016 TECHNIQUE: Following the IV administration of 119 mL of Optiray, CT angiogram of the thorax was performed from the thoracic inlet to the lung bases utilizing the pulmonary embolus protocol. Images are reviewed in the axial, sagittal, and coronal planes. IV contrast was administered without complication. MIP imaging was performed. A dose lowering technique was utilized adhering to the principles of ALARA. CT DOSE: 582.05 mGy.cm FINDINGS: No pathologically enlarged axillary mediastinal or hilar lymph nodes were visualized. There was no evidence of thoracic aortic dilatation. There were no pulmonary artery filling defects to indicate acute pulmonary embolism. There is a small left pleural effusion and trace right pleural effusion. There are bibasilar opacities, likely atelectatic. Spinal stimulator electrodes are visualized. There is a left subclavian pacemaker. There is a reverse total left shoulder arthroplasty. Arthritic changes are present within the right shoulder. IMPRESSION: 1. No evidence of acute pulmonary embolism 2. Very small bilateral pleural effusions 3. Mild basilar atelectasis. ACT 112: Negative or not required by law. Electronically signed by: Norris Keane M.D. 01/30/2021 3:49 PM ECG Data Additional Comments: Paced rhythm with a rate of 62. MO QRS and QTc intervals are within normal limits. No ST elevation or ST depression. [facility] Narrative 1315: The patient was evaluated in room B6. A complete history and physical exam was performed Cardiac monitoring: An order was placed for continuous cardiac monitoring. The monitor shows a rate of 60 with sinus rhythm 1640: Vital signs stable. Labs within normal limits with the exception of elevated D-dimer. CTA of the chest and abdomen pelvis negative. Patient still reporting intermittent chest discomfort which comes and goes. Patient was offered inpatient observation for rule out ACS and cardiology evaluation which she and the daughter prefer to do. Discussed case with Suzan jiménez [facility] hospitalist who states to admit to Dr. Blackmon. Impression & Plan Chest pain Discharge Plan Visit Data Chief Complaint: Shortness of Breath/Dyspnea Stated Complaint: TROUBLE BREATHING, PACE MAKER, SWELLING ANKLES ED Provider: Andre Zaman Discharge Problem: Chest pain Patient Disposition: Being Evaluated by Hospitalist Forms Stand Alone Forms: [facility] Prescriptions Prescriptions: No Action polyethylene glycol 3350 [Miralax] 17 gram Powder In Packet 17 g PO DAILY PRN (Reason: Constipation) RF: 0 armodafinil [Nuvigil] 250 mg Tablet 250 mg PO QAM RF: 0 Centrum Silver Women 8 mg iron-400 mcg-300 mcg Tablet 1 tab PO QAM RF: 0 calcium-vitamin D3-vitamin K [Viactiv] 650 mg-12.5 mcg-40 mcg Tablet,Chewable 2 tab PO DAILY RF: 0 diphenhydramine HCl [Benadryl] 25 mg capsule 50 mg PO HS PRN (Reason: Sleep) RF: 0 amiodarone 200 mg tablet 200 mg PO DAILY Qty: 30 RF: 8 sucralfate 1 gram Tablet 1 g PO TIDM RF: 0 escitalopram oxalate [Lexapro] 10 mg Tablet 10 mg PO DAILY RF: 0 levothyroxine 75 mcg Tablet 75 mcg PO QAM RF: 0 zinc 50 mg Tablet 50 mg PO QDD RF: 0 Humira 40 mg/0.8 mL Syringe Kit 40 mg SUBCUT SA RF: 0 cholecalciferol (vitamin D3) [Vitamin D3] 25 mcg (1,000 unit) Tablet 1,000 unit PO DAILY RF: 0 PreserVision AREDS [id number] Capsule 1 cap PO BID RF: 0 cyanocobalamin (vitamin B-12) [Vitamin B-12] 500 mcg Lozenge 500 mcg PO QDD RF: 0 losartan 100 mg Tablet 100 mg PO DAILY RF: 0 acetaminophen 325 mg Tablet 650 mg PO Q6H PRN (Reason: fever or pain) Qty: 100 RF: 0 Referrals Referrals: Acosta Soto MD [Primary Care Provider] - Discharge Problem: Chest pain Qualifiers: Chest pain type: unspecified Qualified Code(s): R07.9 - Chest pain, unspecified
[2021-01-30] MEDS ORDERED: diphenhydrAMINE 50 MG/ML VIAL IV STA (15:24)
[2021-01-30] MEDS ORDERED: methylPREDNISolone 125 MG/2 ML VIAL IV STA (15:24)
--- NOTE | 2021-01-30 15:44 | CT Scan Report ---
CT SCAN OF THE ABDOMEN AND PELVIS WITHOUT IV CONTRAST CLINICAL HISTORY: Left flank pain. COMPARISON STUDY: Abdominal CT dated 11/02/2020 . TECHNIQUE: CT scan of the abdomen and pelvis is performed from the lung bases to the proximal femora. Images are reviewed in the axial, sagittal, and coronal planes. IV contrast was not administered for this examination as per the referring clinician. Note that the examination was performed in suboptim al fashion without oral and IV contrast. There is mild motion artifact. A dose lowering technique was utilized adhering to the principles of ALARA. FINDINGS: Lung bases: The heart is enlarged and without pericardial effusion. Pacemaker leads are noted. A fat- containing Bochdalek hernia is seen at the left lung base. There is bibasilar scarring/atelectasis. T here are trace pleural effusions with bibasilar scarring/atelectasis. There is a small to moderate hi atal hernia. Liver: The unenhanced liver is normal in size, contour, and attenuation. There is no intrahepatic inocente iary ductal dilatation. Gallbladder: Surgically absent noting clips in the gallbladder fossa. Spleen: Normal in size and attenuation. Pancreas: The unenhanced pancreas is moderately atrophic and grossly unremarkable. Adrenal glands: Unremarkable. Kidneys: The unenhanced kidneys demonstrate cortical atrophy and are without hydronephrosis. There ar e no renal calculi identified. There is no evidence of contour deforming renal mass lesion. Abdominal vasculature: The abdominal aorta is normal in course and caliber noting mild atheroscleroti c calcification. Bowel: Surgical clips are again noted in the stomach. There is mild to moderate sigmoid diverticulosi s without CT evidence of acute diverticulitis. No bowel obstruction is identified. Fecal retention is noted throughout the colon. A duodenal diverticulum is noted. The appendix is not identified and re ported surgically absent. Peritoneum: There is no intraperitoneal free air. Trace ascites is seen in the pelvis. Lymphadenopathy: None. Pelvic viscera: The bladder is normal as visualized. The uterus is surgically absent. No adnexal lesi on is seen. Skeletal structures: The skeletal structures are osteopenic. There is advanced lumbosacral spondylosi s and scoliosis. Spinal fusion is noted at L5-S1. No lytic or blastic lesions are seen. There are sub acute/healing bilateral anterior 6th rib fractures. These are new from 11/02/2020. There has been kelsi nued healing of right pubic ring fractures as compared to previous. Moderate to advanced arthritic ch cassandra is seen in the right hip. A neurostimulator device is present in the left gluteal soft tissues. Leads enter the central canal in the lower thoracic region. IMPRESSION: 1. Suboptimal examination without oral and IV contrast. 2. There are subacute/healing bilateral anterior 6th rib fractures. These are new from 11/02/2020. Arianne elate for point tenderness. 3. Cardiomegaly. Cardiac pacemaker leads are new from previous. 4. Trace pleural effusions. 5. A small volume of nonspecific free fluid is seen in the pelvis. 6. Additional findings as above. ACT 112: Negative or not required by law. Electronically signed by: Alexi Avendano M.D. 01/30/2021 3:42 PM
--- NOTE | 2021-01-30 15:50 | CT Scan Report ---
CT ANGIOGRAM OF THE CHEST CLINICAL HISTORY: Shortness of breath. Possible pulmonary embolism COMPARISON STUDY: 01/06/2016 TECHNIQUE: Following the IV administration of 119 mL of Optiray, CT angiogram of the thorax was perfo rmed from the thoracic inlet to the lung bases utilizing the pulmonary embolus protocol. Images are r eviewed in the axial, sagittal, and coronal planes. IV contrast was administered without complication . MIP imaging was performed. A dose lowering technique was utilized adhering to the principles of AL JACKELIN. CT DOSE: 582.05 mGy.cm FINDINGS: No pathologically enlarged axillary mediastinal or hilar lymph nodes were visualized. There was no evidence of thoracic aortic dilatation. There were no pulmonary artery filling defects to indicate acute pulmonary embolism. There is a small left pleural effusion and trace right pleural effusion. There are bibasilar opacities, likely atelectatic. Spinal stimulator electrodes are visualized. There is a left subclavian pacemaker. There is a reverse total left shoulder arthroplasty. Arthritic changes are present within the right shoulder. IMPRESSION: 1. No evidence of acute pulmonary embolism 2. Very small bilateral pleural effusions 3. Mild basilar atelectasis. ACT 112: Negative or not required by law. Electronically signed by: Norris Keane M.D. 01/30/2021 3:49 PM
--- NOTE | 2021-01-30 18:49 | History & Physical Report ---
Date of Service January 30, 2021 Assessment & Plan (1) Chest pain: (2) Tachy-sheryl syndrome: (3) Pacemaker: -Admit to telemetry -Patient presenting from home with reports of chest pain that has been ongoing since pacemaker insertion 11/2020 however has been worsening over the past 2 weeks -Pain seems to be musculoskeletal in nature and is reproducible on exam. CT ABD/pelvis notes bilateral subacute/healing bilateral anterior 6th rib fractures however location of tenderness does not correlate. -? Pacemaker discomfort -EKG demonstrates paced rhythm, pacer interrogation ordered -Resting echo -Cardiology consult, input appreciated (4) Shortness of breath: -May have some mild volume overload given history of shortness of breath, orthopnea, leg edema, trace bilateral pleural effusions on CT -CTA chest negative for PE, no infiltrates noted -Echo 11/2020-EF 60 to 65%, mild mitral regurgitation, mild to moderate tricuspid regurgitation -No leg edema on exam today, normal proBNP -Trial small dose of Lasix 20 mg IV -reevaluate need for further diuresis tomorrow (5) Paroxysmal atrial fibrillation: -Rhythm controlled on amiodarone -Not anticoagulated due to patient preference (6) Hypothyroidism: -Continue levothyroxine (7) JUDI (iron deficiency anemia): -Receives iron infusions as an outpatient (8) DVT prophylaxis: -SQ Lovenox History of Present Illness Chief Complaint: Chest pain Primary Care Provider: Acosta Soto MD 80-year-old female with PMH hypothyroidism, ARTHUR, paroxysmal atrial fibrillation rhythm controlled on amiodarone not anticoagulated due to patient preference, 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 Patient reports that since she had her pacemaker placed 11/2020 it has been " bothering" her. Patient reports increasing pain over the past couple of weeks. Reports the pain is constant. Pain is located over her left chest and radiates into the left axilla. She describes the pain as sharp and "jabbing". No specific causative relieving factors. She reports associated numbness and tingling in the arm at times. She reports increasing shortness of breath for the past couple of weeks. Reports she has required 2 pillows to sleep for the past few weeks. Reports a 10 pound weight gain and some lower extremity edema over the past couple weeks as well. She has had lightheadedness and dizziness however no syncopal event. No fevers or chills. Denies abdominal pain, nausea, vomiting, diarrhea. No urinary symptoms. In the ED, initial troponin is negative and EKG demonstrates a paced rhythm. CTA chest and CT ABD/pelvis do not show any significant findings. Patient is hemodynamically stable. Labs are unremarkable. Patient received full dose aspirin, IV diphenhydramine, IV Solu-Medrol. Allergies Allergy/AdvReac Type Severity Reaction Status Date / Time bee venom protein (honey bee) Allergy Intermediate "SWELLED Verified 01/30/21 15:37 ALL UP" Iodinated Contrast Media Allergy Intermediate PASSED Verified 01/30/21 15:37 OUT-BODY FELT COLD ALL OVER venlafaxine Allergy Unknown Unknown Verified 01/30/21 15:37 gabapentin AdvReac Intermediate HORRIBLE Verified 01/30/21 15:37 HEADACHES rosuvastatin [From Crestor] AdvReac Intermediate PAIN IN Verified 01/30/21 15:37 JOINTS atorvastatin AdvReac Mild PAIN IN Verified 01/30/21 15:37 JOINTS shellfish derived AdvReac Mild Headache Verified 01/30/21 15:37 Home Medications Medication Instructions Recorded Confirmed Type armodafinil [Nuvigil] 250 mg PO QAM 07/15/18 01/30/21 History polyethylene glycol 3350 [Miralax] 17 g PO DAILY PRN 07/15/18 01/30/21 History Centrum Silver Women 1 tab PO QAM 10/20/18 01/30/21 History calcium-vitamin D3-vitamin K 2 tab PO DAILY 03/05/19 01/30/21 History [Viactiv] diphenhydramine HCl 25 mg capsule 50 mg PO HS PRN 03/30/19 01/30/21 History Humira 40 mg SUBCUT SA 11/02/20 01/30/21 History PreserVision AREDS 1 cap PO BID 11/02/20 01/30/21 History cholecalciferol (vitamin D3) 1,000 unit PO DAILY 11/02/20 01/30/21 History [Vitamin D3] cyanocobalamin (vitamin B-12) 500 mcg PO QDD 11/02/20 01/30/21 History [Vitamin B-12] levothyroxine 75 mcg PO Q2D 11/02/20 01/30/21 History losartan 100 mg PO DAILY 11/02/20 01/30/21 History zinc 50 mg PO QDD 11/02/20 01/30/21 History acetaminophen 650 mg PO Q6H PRN #100 tab 11/03/20 01/30/21 Rx amiodarone 200 mg PO DAILY #30 tab 11/14/20 01/30/21 Rx dicyclomine 10 mg PO BID 01/30/21 01/30/21 History escitalopram oxalate [Lexapro] 10 mg PO DAILY 01/30/21 01/30/21 History hydrocodone-acetaminophen 1 tab PO Q6H PRN 01/30/21 01/30/21 History hydroxyzine HCl 25 mg PO BID PRN 01/30/21 01/30/21 History levothyroxine 55 mcg PO Q2D 01/30/21 01/30/21 History lorazepam 0.5 mg PO Q6H PRN 01/30/21 01/30/21 History meclizine 25 mg PO TID PRN 01/30/21 01/30/21 History pantoprazole 40 mg PO BID 01/30/21 01/30/21 History sucralfate 1 g PO TIDM PRN 01/30/21 01/30/21 History tizanidine 4 mg PO HS PRN 01/30/21 01/30/21 History Past Med/Surg History Medical History (Updated 01/30/21 @ 18:56 by KRISTIN Le) Age related osteoporosis Dyslipidemia Fibromyalgia GERD (gastroesophageal reflux disease) History of concussion MAY 2018 - 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 GETS HEADACHES FROM History of skin cancer Hx of sleep apnea COULDN'T TOLERATE CPAP/REPEAT TESTING SHOWED "DIDN'T NEED" CPAP Hypertension Hypothyroidism JUDI (iron deficiency anemia) ARTHUR (obstructive sleep apnea) Osteoarthritis Pacemaker Paroxysmal atrial fibrillation Rheumatoid arthritis Scoliosis Tachy-sheryl syndrome Urinary incontinence Surgical History History of appendectomy History of bilateral cataract extraction History of bladder suspension procedure History of cardiac cath 4 YRS AGO..CHEST PAIN...ALTOONA - NO FINDINGS...HIATAL HERNIA DX History of colonoscopy History of endoscopy DILATION OF ESOPHAGUS History of eye surgery LASER History of laparoscopic cholecystectomy History of left knee replacement History of lumbar fusion History of partial colectomy History of partial hysterectomy History of rectocele REPAIR WITH MESH AND MESH SINCE REMOVED History of repair of hiatal hernia History of repair of right rotator cuff History of right knee surgery BRUSA SAC REMOVED History of total left knee replacement History of urologic surgery BLADDER TAC S/P lumbar fusion S/P repair of paraesophageal hernia Family History Sister Colorectal cancer Hypertension Mother Stroke Hypertension Other No pertinent family history Social History Smoking Status: Never smoker Hx Alcohol Use: No Hx Substance Use: No Preferred Language: Jamaican Communication Ability: Effective Water Resource Consultant Required: No Beliefs That Will Affect Care: None marital status: Current Living Situation: Spouse Other Information That Helps Us Care for You: No Feels Safe at Home: Yes Safety Concerns: Feels Safe At This Time Assistive Devices: Denture - Upper, Denture - Lower and Glasses Review of Systems Review of Systems: ROS per HPI, all other systems reviewed and negative Physical Exam Constitutional: WD/WN, vitals as above Eyes: PERRL, conjunctivae normal, anicteric sclerae ENMT: external ear and nose normal, oropharynx normal Respiratory: normal respiratory effort, lungs clear to auscultation Cardiovascular: Rate/Rhythm: regular rate and regular rhythm Vessels: normal peripheral pulses Extremities: no edema Chest (Breasts): Additional Comments: Left chest and pacemaker insertion site tender to palpation, pacemaker site healed well without erythema or drainage Gastrointestinal (Abdomen): normal bowel sounds, soft, nontender, no hepatosplenomegaly Musculoskeletal: no cyanosis or clubbing, extremities motor strength 5/5 Skin: no rashes, warm and dry Neurologic: PERRL, EOMI, accommodation nl, no face palsy, no dysarthria Psychiatric: A+Ox3, euthymic affect Results & Data Results & Data ([facility]) Vital Signs (Past 12 Hours) Vital Signs Temp Pulse Resp BP Pulse Ox 01/30/21 17:00 60 16 130/71 94 01/30/21 16:00 60 16 155/78 H 94 01/30/21 15:00 60 14 94 01/30/21 14:30 60 16 95 01/30/21 14:02 60 12 97 01/30/21 14:01 60 18 144/74 H 96 01/30/21 14:00 60 14 95 01/30/21 13:58 96 01/30/21 13:50 60 15 95 01/30/21 13:48 60 18 96 01/30/21 13:43 64 17 165/82 H 95 01/30/21 13:40 62 14 01/30/21 13:04 36.8 C 65 16 145/82 H 96 Laboratory Results Short CBC 01/30/21 Range/Units 14:07 WBC 5.12 (4.8-10.8) K/uL Hgb 11.9 L (12.0-16.0) g/dL Hct 36.1 L (37-47) % Plt Count 177 (130-400) K/uL BMP 01/30/21 14:07 Sodium 141 Potassium 4.3 Chloride 107 Carbon Dioxide 32 BUN 16 Creatinine 0.78 Glucose 82 Calcium 8.9 Cardiac Enzymes 01/30/21 Range/Units 14:07 Troponin I < 0.015 (0-0.045) ng/ml Liver Function 01/30/21 Range/Units 14:07 Total Bilirubin 0.3 (0.2-1) mg/dl Direct Bilirubin 0.1 (0-0.2) mg/dl AST 24 (15-37) U/L ALT 30 (12-78) U/L Alkaline Phosphatase 69 (45-117) U/L Albumin 3.4 (3.4-5.0) gm/dl Urine 01/30/21 Range/Units 14:03 Urine Color Yellow Urine Appearance Clear (Clear) Urine pH 7.0 (4.5-7.5) Ur Specific [place] 1.016 (1.000-1.030) Urine Protein Negative (Negative) Urine Glucose (UA) Negative (Negative) Diagnostic Findings Chest X-Ray 01/30/21 13:16 XR chest 1V portable CLINICAL HISTORY: Atypical chest pain COMPARISON STUDY: 11/14/2020 FINDINGS: Heart is enlarged. There is aortic tortuosity. There is a left subclavian dual-chamber central venous pacemaker. Spinal stimulator electrodes are visualized. There is no failure. There is minor basilar atelectasis. There is minor blunting of the lateral costophrenic angles suggesting trace effusions. There is no overt failure. There are old rib deformities. There is a reverse total left shoulder arthroplasty. There are arthritic changes present within the right shoulder with radiographic evidence of chronic rotator cuff tear/deg eneration[ IMPRESSION: 1. Cardiomegaly and suspected trace pleural effusions 2. Mild basilar atelectasis ACT 112: Negative or not required by law. Electronically signed by: Norris Keane M.D. 01/30/2021 2:08 PM Abdomen/Pelvis CT 01/30/21 13:34 CT SCAN OF THE ABDOMEN AND PELVIS WITHOUT IV CONTRAST CLINICAL HISTORY: Left flank pain. COMPARISON STUDY: Abdominal CT dated 11/02/2020 . TECHNIQUE: CT scan of the abdomen and pelvis is performed from the lung bases to the proximal femora. Images are reviewed in the axial, sagittal, and coronal planes. IV contrast was not administered for this examination as per the referring clinician. Note that the examination was performed in suboptimal fashion without oral and IV contrast. There is mild motion artifact. A dose lowering technique was utilized adhering to the principles of ALARA. FINDINGS: Lung bases: The heart is enlarged and without pericardial effusion. Pacemaker leads are noted. A fat-containing Bochdalek hernia is seen at the left lung base. There is bibasilar scarring/atelectasis. There are trace pleural effusions with bibasilar scarring/atelectasis. There is a small to moderate hiatal hernia. Liver: The unenhanced liver is normal in size, contour, and attenuation. There is no intrahepatic biliary ductal dilatation. Gallbladder: Surgically absent noting clips in the gallbladder fossa. Spleen: Normal in size and attenuation. Pancreas: The unenhanced pancreas is moderately atrophic and grossly unremarkable. Adrenal glands: Unremarkable. Kidneys: The unenhanced kidneys demonstrate cortical atrophy and are without hydronephrosis. There are no renal calculi identified. There is no evidence of contour deforming renal mass lesion. Abdominal vasculature: The abdominal aorta is normal in course and caliber noting mild atherosclerotic calcification. Bowel: Surgical clips are again noted in the stomach. There is mild to moderate sigmoid diverticulosis without CT evidence of acute diverticulitis. No bowel obstruction is identified. Fecal retention is noted throughout the colon. A duodenal diverticulum is noted. The appendix is not identified and reported surgically absent. Peritoneum: There is no intraperitoneal free air. Trace ascites is seen in the pelvis. Lymphadenopathy: None. Pelvic viscera: The bladder is normal as visualized. The uterus is surgically absent. No adnexal lesion is seen. Skeletal structures: The skeletal structures are osteopenic. There is advanced lumbosacral spondylosis and scoliosis. Spinal fusion is noted at L5-S1. No lytic or blastic lesions are seen. There are subacute/healing bilateral anterior 6th rib fractures. These are new from 11/02/2020. There has been continued healing of right pubic ring fractures as compared to previous. Moderate to advanced arthritic change is seen in the right hip. A neurostimulator device is present in the left gluteal soft tissues. Leads enter the central canal in the lower thoracic region. IMPRESSION: 1. Suboptimal examination without oral and IV contrast. 2. There are subacute/healing bilateral anterior 6th rib fractures. These are new from 11/02/2020. Correlate for point tenderness. 3. Cardiomegaly. Cardiac pacemaker leads are new from previous. 4. Trace pleural effusions. 5. A small volume of nonspecific free fluid is seen in the pelvis. 6. Additional findings as above. ACT 112: Negative or not required by law. Electronically signed by: Alexi Avendano M.D. 01/30/2021 3:42 PM Chest CTA 01/30/21 14:29 CT ANGIOGRAM OF THE CHEST CLINICAL HISTORY: Shortness of breath. Possible pulmonary embolism COMPARISON STUDY: 01/06/2016 TECHNIQUE: Following the IV administration of 119 mL of Optiray, CT angiogram of the thorax was performed from the thoracic inlet to the lung bases utilizing the pulmonary embolus protocol. Images are reviewed in the axial, sagittal, and coronal planes. IV contrast was administered without complication. MIP imaging was performed. A dose lowering technique was utilized adhering to the principles of ALARA. CT DOSE: 582.05 mGy.cm FINDINGS: No pathologically enlarged axillary mediastinal or hilar lymph nodes were visualized. There was no evidence of thoracic aortic dilatation. There were no pulmonary artery filling defects to indicate acute pulmonary embolism. There is a small left pleural effusion and trace right pleural effusion. There are bibasilar opacities, likely atelectatic. Spinal stimulator electrodes are visualized. There is a left subclavian pacemaker. There is a reverse total left shoulder arthroplasty. Arthritic changes are present within the right shoulder. IMPRESSION: 1. No evidence of acute pulmonary embolism 2. Very small bilateral pleural effusions 3. Mild basilar atelectasis. ACT 112: Negative or not required by law. Electronically signed by: Norris Keane M.D. 01/30/2021 3:49 PM Code Status & VTE Plan Code Status Patient is a full code as per my discussion with her. VTE Prophylaxis Plan VTE Prophylaxis will be ordered: Yes Supervising Physician Co-Signing Physician Notes Attending addendum: Patient was seen and examined in the emergency room She is a 73-year-old female with significant past medical history of tachybradycardia syndrome status post PPM placement in November of this year, a trial fibrillation not on anticoagulation due to her prophylaxis and other medical condition as mentioned in H&P has been complaining of chest pain off and on for the last 3 to 4 weeks. She also complains to have some shortness of breath associated with it and did recently noticed minimal swelling involving the lower extremities most on the left than the right. He strongly believes that her pain and discomfort is related to the pacemaker. She denies any fever no chills, any palpitation, any nausea or vomiting. On examination: Lying in bed comfortably Hemodynamically stable Chestclear to auscultation bilaterally. Tenderness over precordium and left lateral chest wall HeartS1-S2, regular, no murmur appreciated Abdomen-benign Extremitiesminimal edema involving the left leg and dorsum of foot LENS CEMENTER-alert, awake and oriented x3 Admission labs, EKG and imaging studies reviewed Has chest pain, atypical in nature likely secondary to pacemaker related discomfort, doubt any ACS Serial cardiac enzymes and echocardiogram will be performed Pacemaker interrogation and cardiology consultation for any further recommendation Agree with assessment and plan as outlined above by Suzan Blackmon (1) Chest pain Chest pain type: unspecified Qualified Code(s): R07.9 - Chest pain, unspecified
[2021-01-30] MEDS ORDERED: FUROSEMIDE 40 MG/4 ML VIAL IV ONE (20:16)
[2021-01-30] MEDS ORDERED: HYDROcodone/ACETAMINOPHEN 10/325 TAB PO PRN (20:16)
[2021-01-30] MEDS ORDERED: ACETAMINOPHEN 325 MG TAB PO PRN (20:16)
[2021-01-30] MEDS ORDERED: ENOXAPARIN INJ 40 MG/0.4 ML SYR SQ SCH (21:00)
[2021-01-30] MEDS: DICYCLOMINE HCL 10 MG CAP PO SCH (21:54)
[2021-01-30] MEDS: PANTOprazole 40 MG TAB PO SCH (21:54)
[2021-01-31 03:08] LABS: BUN Creatinine Ratio 22.3 (10-20); Blood Urea Nitrogen 21 mg/dl (7-18); Calcium 8.7 mg/dl (8.5-10.1); Carbon Dioxide 34 mmol/L (21-32); Chloride 105 mmol/L (98-107); Creatinine Clr Calc Pharmacy 36.2 ml/min; Est GFR (African American) 69.1 ml/min; Est GFR (Non-African American) 59.6 ml/min; Glucose 122 mg/dl (70-99); Sodium 141 mmol/L (136-145)
[2021-01-31 03:12] LABS: Hematocrit (blood only) 36.4 % (37-47); Hemoglobin 12.2 g/dL (12.0-16.0); Mean Corpuscular Hemoglobin 31.3 pg (25-34); Mean Corpuscular Hgb Conc 33.5 g/dL (32-36); Mean Corpuscular Volume 93.3 fL (80-100); Mean Platelet Volume 8.7 fL (7.4-10.4); Platelet Count 190 K/uL (130-400); RDW Coefficient of Variation 17.6 % (11.5-14.5); RDW Standard Deviation 60.1 fL (36.4-46.3); Troponin I < 0.015 ng/ml (0-0.045); White Blood Count 6.92 K/uL (4.8-10.8)
[2021-01-31] MEDS ORDERED: LEVOTHYROXINE SODIUM 50 MCG TABLET PO SCH ×2 (06:30→16:00)
[2021-01-31] MEDS: DICYCLOMINE HCL 10 MG CAP PO SCH ×2 (08:38→08:44)
[2021-01-31] MEDS: PANTOprazole 40 MG TAB PO SCH (08:38)
[2021-01-31] MEDS ORDERED: CHOLECALCIFEROL 1,000 UNITS 25 MCG TAB PO SCH (09:00)
[2021-01-31] MEDS ORDERED: LOSARTAN POTASSIUM 50 MG TAB PO SCH (09:00)
[2021-01-31] MEDS ORDERED: AMIODARONE 200 MG TAB PO SCH (09:00)
[2021-01-31] MEDS ORDERED: ESCITALOPRAM OXALATE 10 MG TAB PO SCH (09:00)
--- NOTE | 2021-01-31 14:10 | Cardiology Consultation ---
Date of Consultation January 31, 2021 Assessment & Plan (1) Chest pain: Patient presents with chest pain atypical for cardiac origin with pain worsening with movement arm and shoulder. No evidence of acute ischemia by EKG or enzyme. Pacemaker functioning appropriately on recent interrogations. Symptoms of dyspnea improved with diuretics. LV systolic function is normal on echocardiogram and overall echo appears stable to slightly improved from last study. There is no pericardial effusion There are no arrhythmias on telemetry Recommendations: Reduce amiodarone to 100 mg p.o. daily. 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 Viramontes Attending Physician: Arcelia Viramontes, DO History of Present Illness Patient is a 80-year-old female with ongoing issues include 1. Paroxysmal atrial fibrillation controlled with amiodarone therapy 2. 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 Hypertension 4. Obstructive sleep apnea with CPAP intolerance 5. Rheumatoid arthritis with diffuse arthralgias/fibromyalgia Patient referred for evaluation after hospitalization last evening for left shoulder pain and sharp jabbing pain across her chest worse with palpation and shoulder movement. In addition has felt more breathless. Notes no syncope or near syncope. Notes no fevers chills or unexplained infections concern regarding possible pacemaker etiology of complaints. No acute weight loss or gain. No noted arrhythmias recently. New medication for patient is amiodarone. Has had general complaints of malaise and fatigue. Cardiac evaluation included EKGs without ST segment changes or Q waves. Negative troponin x2 Chest CT due to elevated D-dimer without pulmonary embolus with only small pleural effusion Last pacer interrogation 01/05/2021 revealed normal device function with 53% atrial pacing no arrhythmia. TSH normal at 2.88 Patient improved this morning after IV diuresis single dose but still with left shoulder pain on movement and palpation Allergies Allergy/AdvReac Type Severity Reaction Status Date / Time bee venom protein (honey bee) Allergy Intermediate "SWELLED Verified 01/30/21 15:37 ALL UP" Iodinated Contrast Media Allergy Intermediate PASSED Verified 01/30/21 15:37 OUT-BODY FELT COLD ALL OVER venlafaxine Allergy Unknown Unknown Verified 01/30/21 15:37 gabapentin AdvReac Intermediate HORRIBLE Verified 01/30/21 15:37 HEADACHES rosuvastatin [From Crestor] AdvReac Intermediate PAIN IN Verified 01/30/21 15:37 JOINTS atorvastatin AdvReac Mild PAIN IN Verified 01/30/21 15:37 JOINTS shellfish derived AdvReac Mild Headache Verified 01/30/21 15:37 Home Medications Medication Instructions Recorded Confirmed Type armodafinil [Nuvigil] 250 mg PO QAM 07/15/18 01/30/21 History polyethylene glycol 3350 [Miralax] 17 g PO DAILY PRN 07/15/18 01/30/21 History Centrum Silver Women 1 tab PO QAM 10/20/18 01/30/21 History calcium-vitamin D3-vitamin K 2 tab PO DAILY 03/05/19 01/30/21 History [Viactiv] diphenhydramine HCl 25 mg capsule 50 mg PO HS PRN 03/30/19 01/30/21 History Humira 40 mg SUBCUT SA 11/02/20 01/30/21 History PreserVision AREDS 1 cap PO BID 11/02/20 01/30/21 History cholecalciferol (vitamin D3) 1,000 unit PO DAILY 11/02/20 01/30/21 History [Vitamin D3] cyanocobalamin (vitamin B-12) 500 mcg PO QDD 11/02/20 01/30/21 History [Vitamin B-12] levothyroxine 75 mcg PO Q2D 11/02/20 01/30/21 History losartan 100 mg PO DAILY 11/02/20 01/30/21 History zinc 50 mg PO QDD 11/02/20 01/30/21 History acetaminophen 650 mg PO Q6H PRN #100 tab 11/03/20 01/30/21 Rx amiodarone 200 mg PO DAILY #30 tab 11/14/20 01/30/21 Rx dicyclomine 10 mg PO BID 01/30/21 01/30/21 History escitalopram oxalate [Lexapro] 10 mg PO DAILY 01/30/21 01/30/21 History hydrocodone-acetaminophen 1 tab PO Q6H PRN 01/30/21 01/30/21 History hydroxyzine HCl 25 mg PO BID PRN 01/30/21 01/30/21 History levothyroxine 55 mcg PO Q2D 01/30/21 01/30/21 History lorazepam 0.5 mg PO Q6H PRN 01/30/21 01/30/21 History meclizine 25 mg PO TID PRN 01/30/21 01/30/21 History pantoprazole 40 mg PO BID 01/30/21 01/30/21 History sucralfate 1 g PO TIDM PRN 01/30/21 01/30/21 History tizanidine 4 mg PO HS PRN 01/30/21 01/30/21 History Patient History Medical History Age related osteoporosis Dyslipidemia Fibromyalgia GERD (gastroesophageal reflux disease) History of concussion MAY 2018 - 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 FROM History of skin cancer Hx of sleep apnea COULDN'T TOLERATE CPAP/REPEAT TESTING SHOWED "DIDN'T NEED" CPAP Hypertension Hypothyroidism JUDI (iron deficiency anemia) ARTHUR (obstructive sleep apnea) Osteoarthritis Pacemaker Paroxysmal atrial fibrillation Rheumatoid arthritis Scoliosis Tachy-sheryl syndrome Urinary incontinence Surgical History History of appendectomy History of bilateral cataract extraction History of bladder suspension procedure History of cardiac cath 4 YRS AGO..CHEST PAIN...ALTOONA - NO FINDINGS...HIATAL HERNIA DX History of colonoscopy History of endoscopy DILATION OF ESOPHAGUS History of eye surgery LASER History of laparoscopic cholecystectomy History of left knee replacement History of lumbar fusion History of partial colectomy History of partial hysterectomy History of rectocele REPAIR WITH MESH AND MESH SINCE REMOVED History of repair of hiatal hernia History of repair of right rotator cuff History of right knee surgery BRUSA SAC REMOVED History of total left knee replacement History of urologic surgery BLADDER TAC S/P lumbar fusion S/P repair of paraesophageal hernia Family History Sister Colorectal cancer Hypertension Mother Stroke Hypertension Other No pertinent family history Social History Smoking Status: Never smoker Hx Alcohol Use: No Hx Substance Use: No Preferred Language: Martiniquais Communication Ability: Effective Fire Ranger Required: No Beliefs That Will Affect Care: None marital status: Current Living Situation: Spouse Other Information That Helps Us Care for You: No Feels Safe at Home: Yes Safety Concerns: Feels Safe At This Time Assistive Devices: Denture - Upper, Denture - Lower and Glasses Review of Systems Review of Systems: All systems reviewed & are unremarkable except as noted in HPI & below Physical Exam Constitutional: WD/WN, vitals as above Eyes: PERRL, conjunctivae normal, anicteric sclerae ENMT: external ear and nose normal, oropharynx normal Neck: trachea midline, no thyromegaly Respiratory: normal respiratory effort, lungs clear to auscultation Cardiovascular: Rate/Rhythm: regular rate and regular rhythm Heart Sounds: normal S1 and normal S2; no gallop and no murmur Palpation: normal PMI Vessels: normal carotid upstroke and radial pulses present; no JVD and no carotid bruit Extremities: no edema Gastrointestinal (Abdomen): normal bowel sounds, soft, nontender, no hepatosplenomegaly Musculoskeletal: no cyanosis or clubbing, extremities motor strength 5/5 Skin: no rashes, warm and dry Neurologic: PERRL, EOMI, accommodation nl, no face palsy, no dysarthria Psychiatric: A+Ox3, euthymic affect Results & Data ([facility]) Vital Signs (Past 12 Hours) Vital Signs Temp Pulse Pulse Pulse Resp BP Pulse Ox 01/31/21 11:48 36.9 C 58 L 18 138/74 97 01/31/21 09:46 60 01/31/21 07:25 37.0 C 60 18 129/70 95 01/31/21 03:45 36.6 C 60 16 123/63 94 Laboratory Results Laboratory Results - last 24 hr 01/30/21 01/30/21 01/30/21 14:03 14:07 14:07 WBC 5.12 RBC 3.85 L Hgb 11.9 L Hct 36.1 L MCV 93.8 MCH 30.9 MCHC 33.0 RDW Std Deviation 60.6 H RDW Coeff of Kim 17.6 H Plt Count 177 MPV 8.8 Immature Gran % (Auto) 0.2 Neut % (Auto) 74.2 Lymph % (Auto) 15.6 [place] % (Auto) 8.4 Eos % (Auto) 1.2 Baso % (Auto) 0.4 Neut # (Auto) 3.80 Lymph # (Auto) 0.80 L [place] # (Auto) 0.43 Eos # (Auto) 0.06 Baso # (Auto) 0.02 Immature Gran # (Auto) 0.01 PT 10.6 INR 1.0 APTT 24.8 PTT Ratio 0.9 D-Dimer 4030 H* Sodium Potassium Chloride Carbon Dioxide Anion Gap BUN Creatinine Est Cr Clr Drug Dosing Est GFR ( Amer) Est GFR (Non-Af Amer) BUN/Creatinine Ratio Glucose Calcium Total Bilirubin Direct Bilirubin AST ALT Alkaline Phosphatase Troponin I NT-Pro-B Natriuret Pep Total Protein Albumin Lipase Urine Color Yellow Urine Appearance Clear Urine pH 7.0 Ur Specific [place] 1.016 Urine Protein Negative Urine Glucose (UA) Negative Urine Ketones Negative Urine Blood Negative Urine Nitrite Negative Urine Bilirubin Negative Urine Urobilinogen Negative Ur Leukocyte Esterase Negative COVID-19 Eval Order SARS-CoV-2 (PCR) 01/30/21 01/30/21 01/30/21 14:07 17:11 17:11 WBC RBC Hgb Hct MCV MCH MCHC RDW Std Deviation RDW Coeff of Kim Plt Count MPV Immature Gran % (Auto) Neut % (Auto) Lymph % (Auto) [place] % (Auto) Eos % (Auto) Baso % (Auto) Neut # (Auto) Lymph # (Auto) [place] # (Auto) Eos # (Auto) Baso # (Auto) Immature Gran # (Auto) PT INR APTT PTT Ratio D-Dimer Sodium 141 Potassium 4.3 Chloride 107 Carbon Dioxide 32 Anion Gap 2.0 L BUN 16 Creatinine 0.78 Est Cr Clr Drug Dosing 42.7 Est GFR ( Amer) 84.4 Est GFR (Non-Af Amer) 72.8 BUN/Creatinine Ratio 20.0 Glucose 82 Calcium 8.9 Total Bilirubin 0.3 Direct Bilirubin 0.1 AST 24 ALT 30 Alkaline Phosphatase 69 Troponin I < 0.015 NT-Pro-B Natriuret Pep 349 Total Protein 6.6 Albumin 3.4 Lipase 740 H Urine Color Urine Appearance Urine pH Ur Specific [place] Urine Protein Urine Glucose (UA) Urine Ketones Urine Blood Urine Nitrite Urine Bilirubin Urine Urobilinogen Ur Leukocyte Esterase COVID-19 Eval Order Covid19 at [facility] SARS-CoV-2 (PCR) NEGATIVE 01/30/21 01/31/21 01/31/21 20:36 02:01 02:01 WBC 6.92 RBC 3.90 L Hgb 12.2 Hct 36.4 L MCV 93.3 MCH 31.3 MCHC 33.5 RDW Std Deviation 60.1 H RDW Coeff of Kim 17.6 H Plt Count 190 MPV 8.7 Immature Gran % (Auto) Neut % (Auto) Lymph % (Auto) [place] % (Auto) Eos % (Auto) Baso % (Auto) Neut # (Auto) Lymph # (Auto) [place] # (Auto) Eos # (Auto) Baso # (Auto) Immature Gran # (Auto) PT INR APTT PTT Ratio D-Dimer Sodium 141 Potassium 4.0 Chloride 105 Carbon Dioxide 34 H Anion Gap 2.0 L BUN 21 H Creatinine 0.92 Est Cr Clr Drug Dosing 36.2 Est GFR ( Amer) 69.1 Est GFR (Non-Af Amer) 59.6 BUN/Creatinine Ratio 22.3 H Glucose 122 H Calcium 8.7 Total Bilirubin Direct Bilirubin AST ALT Alkaline Phosphatase Troponin I < 0.015 < 0.015 NT-Pro-B Natriuret Pep Total Protein Albumin Lipase Urine Color Urine Appearance Urine pH Ur Specific [place] Urine Protein Urine Glucose (UA) Urine Ketones Urine Blood Urine Nitrite Urine Bilirubin Urine Urobilinogen Ur Leukocyte Esterase COVID-19 Eval Order SARS-CoV-2 (PCR) (1) Chest pain Chest pain type: unspecified Qualified Code(s): R07.9 - Chest pain, un specified
[2021-01-31] MEDS ORDERED: CYANOCOBALAMIN 500 MCG TABLET (VITAMIN B-12) PO SCH (16:30)
[2021-02-01] MEDS ORDERED: LEVOTHYROXINE SODIUM 75 MCG TABLET PO SCH (06:30)
[2021-02-01] MEDS ORDERED: AMIODARONE 200 MG TAB PO SCH (09:00)
[2021-02-01] MEDS ORDERED: FUROSEMIDE 20 MG TAB PO SCH (09:00)
--- NOTE | 2021-02-01 09:04 | Electrocardiogram Report ---
Test Reason : Blood Pressure : / mmHG Vent. Rate : 062 BPM Atrial Rate : 062 BPM P-R Int : 184 ms QRS Dur : 088 ms QT Int : 412 ms P-R-T Axes : 054 005 043 degrees QTc Int : 418 ms Atrial-paced rhythm Abnormal ECG When compared with ECG of 14-NOV-2020 14:39, Electronic atrial pacemaker has replaced Sinus rhythm Confirmed by Byron Anna ([id number]) on 02/01/2021 9:04:17 AM Referred By: Confirmed By:Byron Anna
--- NOTE | 2021-02-01 13:51 | Electrocardiogram Report ---
Test Reason : Blood Pressure : / mmHG Vent. Rate : 061 BPM Atrial Rate : 061 BPM P-R Int : 180 ms QRS Dur : 090 ms QT Int : 416 ms P-R-T Axes : 010 -02 010 degrees QTc Int : 418 ms Atrial-paced rhythm Abnormal ECG When compared with ECG of 30-JAN-2021 13:40, (unconfirmed) No significant change was found Confirmed by Byron Anna ([id number]) on 02/01/2021 1:51:10 PM Referred By: Acosta Soto Confirmed By:Byron Anna
--- NOTE | 2021-02-04 07:53 | Discharge Summary ---
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 Patient reports that since she had her pacemaker placed 11/2020 it has been " bothering" her. Patient reports increasing pain over the past couple of weeks. Reports the pain is constant. Pain is located over her left chest and radiates into the left axilla. She describes the pain as sharp and "jabbing". No specific causative relieving factors. She reports associated numbness and tingling in the arm at times. She reports increasing shortness of breath for the past couple of weeks. Reports she has required 2 pillows to sleep for the past few weeks. Reports a 10 pound weight gain and some lower extremity edema over the past couple weeks as well. She has had lightheadedness and dizziness however no syncopal event. No fevers or chills. Denies abdominal pain, nausea, vomiting, diarrhea. No urinary symptoms. In the ED, initial troponin is negative and EKG demonstrates a paced rhythm. CTA chest and CT ABD/pelvis do not show any significant findings. Patient is hemodynamically stable. Labs are unremarkable. Patient received full dose aspirin, IV diphenhydramine, IV Solu-Medrol. Admission Exam Per Admitting Provider Constitutional: WD/WN, vitals as above Eyes: PERRL, conjunctivae normal, anicteric sclerae ENMT: external ear and nose normal, oropharynx normal Respiratory: normal respiratory effort, lungs clear to auscultation Cardiovascular: Rate/Rhythm: regular rate and regular rhythm Vessels: normal peripheral pulses Extremities: no edema Chest (Breasts): Additional Comments: Left chest and pacemaker insertion site tender to palpation, pacemaker site healed well without erythema or drainage Gastrointestinal (Abdomen): normal bowel sounds, soft, nontender, no hepatosplenomegaly Musculoskeletal: no cyanosis or clubbing, extremities motor strength 5/5 Skin: no rashes, warm and dry Neurologic: PERRL, EOMI, accommodation nl, no face palsy, no dysarthria Psychiatric: A+Ox3, euthymic affect Principal Diagnosis Atypical chest pain Dyspnea Discharge Exam CONSTITUTIONAL: thin, vitals as above, generally well-appearing EYES: normal conjunctivae, no scleral icterus ENT: external ear and nose normal, MMM RESPIRATORY: clear to auscultation bilaterally, no crackles, rales or wheezes, normal respiratory effort CARDIOVASCULAR: regular rate and rhythm, S1 and 2 heard without murmurs, gallops or rubs, no JVD, no peripheral edema CHEST: i+pacemaker site healed well, no erythema or swelling, no pain to palpation. GASTROINTESTINAL: soft, nontender, nondistended MUSCULOSKELETAL: strength 5/5 throughout, head is normocephalic and atraumatic SKIN: warm and dry NEUROLOGIC: CN 2-12 grossly intact, no sensory deficit, normal cognition, normal speech, no tremor PSYCHIATRIC: alert cooperative and oriented to person, place and time. Discharge Data Allergies Allergy/AdvReac Type Severity Reaction Status Date / Time bee venom protein (honey bee) Allergy Intermediate "SWELLED Verified 01/30/21 15:37 ALL UP" Iodinated Contrast Media Allergy Intermediate PASSED Verified 01/30/21 15:37 OUT-BODY FELT COLD ALL OVER venlafaxine Allergy Unknown Unknown Verified 01/30/21 15:37 gabapentin AdvReac Intermediate HORRIBLE Verified 01/30/21 15:37 HEADACHES rosuvastatin [From Crestor] AdvReac Intermediate PAIN IN Verified 01/30/21 15:37 JOINTS atorvastatin AdvReac Mild PAIN IN Verified 01/30/21 15:37 JOINTS shellfish derived AdvReac Mild Headache Verified 01/30/21 15:37 Consultations 01/30/21 16:05 ED Decision to Admit Stat 01/30/21 20:16 Consult Cardiology Routine Ordered Studies Laboratory Results WBC 6.92 K/uL (4.8-10.8) 01/31/21 02:01 RBC 3.90 M/uL (4.2-5.4) L 01/31/21 02:01 Hgb 12.2 g/dL (12.0-16.0) 01/31/21 02:01 Hct 36.4 % (37-47) L 01/31/21 02:01 MCV 93.3 fL (80-100) 01/31/21 02:01 MCH 31.3 pg (25-34) 01/31/21 02:01 MCHC 33.5 g/dL (32-36) 01/31/21 02:01 RDW Std Deviation 60.1 fL (36.4-46.3) H 01/31/21 02:01 RDW Coeff of Kim 17.6 % (11.5-14.5) H 01/31/21 02:01 Plt Count 190 K/uL (130-400) 01/31/21 02:01 MPV 8.7 fL (7.4-10.4) 01/31/21 02:01 Immature Gran % (Auto) 0.2 % 01/30/21 14:07 Neut % (Auto) 74.2 % 01/30/21 14:07 Lymph % (Auto) 15.6 % 01/30/21 14:07 [place] % (Auto) 8.4 % 01/30/21 14:07 Eos % (Auto) 1.2 % 01/30/21 14:07 Baso % (Auto) 0.4 % 01/30/21 14:07 Neut # (Auto) 3.80 K/uL (1.4-6.5) 01/30/21 14:07 Lymph # (Auto) 0.80 K/uL (1.2-3.4) L 01/30/21 14:07 [place]och # (Auto) 0.43 K/uL (0.11-0.59) 01/30/21 14:07 Eos # (Auto) 0.06 K/uL (0-0.5) 01/30/21 14:07 Baso # (Auto) 0.02 K/uL (0-0.2) 01/30/21 14:07 Immature Gran # (Auto) 0.01 K/uL (0.00-0.02) 01/30/21 14:07 PT 10.6 Seconds (9.0-12.0) 01/30/21 14:07 INR 1.0 (0.9-1.1) 01/30/21 14:07 APTT 24.8 Seconds (21.0-31.0) 01/30/21 14:07 PTT Ratio 0.9 01/30/21 14:07 D-Dimer 4030 ug/L FEU (0-500) H* 01/30/21 14:07 Sodium 141 mmol/L (136-145) 01/31/21 02:01 Potassium 4.0 mmol/L (3.5-5.1) 01/31/21 02:01 Chloride 105 mmol/L (98-107) 01/31/21 02:01 Carbon Dioxide 34 mmol/L (21-32) H 01/31/21 02:01 Anion Gap 2.0 (3-11) L 01/31/21 02:01 BUN 21 mg/dl (7-18) H 01/31/21 02:01 Creatinine 0.92 mg/dl (0.6-1.2) 01/31/21 02:01 Est Cr Clr Drug Dosing 36.2 ml/min 01/31/21 02:01 Est GFR ( Amer) 69.1 ml/min 01/31/21 02:01 Est GFR (Non-Af Amer) 59.6 ml/min 01/31/21 02:01 BUN/Creatinine Ratio 22.3 (10-20) H 01/31/21 02:01 Glucose 122 mg/dl (70-99) H 01/31/21 02:01 Calcium 8.7 mg/dl (8.5-10.1) 01/31/21 02:01 Total Bilirubin 0.3 mg/dl (0.2-1) 01/30/21 14:07 Direct Bilirubin 0.1 mg/dl (0-0.2) 01/30/21 14:07 AST 24 U/L (15-37) 01/30/21 14:07 ALT 30 U/L (12-78) 01/30/21 14:07 Alkaline Phosphatase 69 U/L (45-117) 01/30/21 14:07 Troponin I < 0.015 ng/ml (0-0.045) 01/31/21 02:01 NT-Pro-B Natriuret Pep 349 pg/ml (0-1800) 01/30/21 14:07 Total Protein 6.6 gm/dl (6.4-8.2) 01/30/21 14:07 Albumin 3.4 gm/dl (3.4-5.0) 01/30/21 14:07 Lipase 740 U/L (73-393) H 01/30/21 14:07 Urine Color Yellow 01/30/21 14:03 Urine Appearance Clear (Clear) 01/30/21 14:03 Urine pH 7.0 (4.5-7.5) 01/30/21 14:03 Ur Specific [place] 1.016 (1.000-1.030) 01/30/21 14:03 Urine Protein Negative (Negative) 01/30/21 14:03 Urine Glucose (UA) Negative (Negative) 01/30/21 14:03 Urine Ketones Negative (Negative) 01/30/21 14:03 Urine Blood Negative (Negative) 01/30/21 14:03 Urine Nitrite Negative (Negative) 01/30/21 14:03 Urine Bilirubin Negative (Negative) 01/30/21 14:03 Urine Urobilinogen Negative (Negative) 01/30/21 14:03 Ur Leukocyte Esterase Negative (Negative) 01/30/21 14:03 COVID-19 Eval Order Covid19 at [facility] 01/30/21 17:11 SARS-CoV-2 (PCR) NEGATIVE (Negative) 01/30/21 17:11 Impressions Chest X-Ray 01/30/21 13:16 XR chest 1V portable CLINICAL HISTORY: Atypical chest pain COMPARISON STUDY: 11/14/2020 FINDINGS: Heart is enlarged. There is aortic tortuosity. There is a left subclavian dual-chamber central venous pacemaker. Spinal stimulator electrodes are visualized. There is no failure. There is minor basilar atelectasis. There is minor blunting of the lateral costophrenic angles suggesting trace effusions. There is no overt failure. There are old rib deformities. There is a reverse total left shoulder arthroplasty. There are arthritic changes present within the right shoulder with radiographic evidence of chronic rotator cuff tear/degeneration[ IMPRESSION: 1. Cardiomegaly and suspected trace pleural effusions 2. Mild basilar atelectasis ACT 112: Negative or not required by law. Electronically signed by: Norris Keane M.D. 01/30/2021 2:08 PM Abdomen/Pelvis CT 01/30/21 13:34 CT SCAN OF THE ABDOMEN AND PELVIS WITHOUT IV CONTRAST CLINICAL HISTORY: Left flank pain. COMPARISON STUDY: Abdominal CT dated 11/02/2020 . TECHNIQUE: CT scan of the abdomen and pelvis is performed from the lung bases to the proximal femora. Images are reviewed in the axial, sagittal, and coronal planes. IV contrast was not administered for this examination as per the referring clinician. Note that the examination was performed in suboptimal fashion without oral and IV contrast. There is mild motion artifact. A dose lowering technique was utilized adhering to the principles of ALARA. FINDINGS: Lung bases: The heart is enlarged and without pericardial effusion. Pacemaker leads are noted. A fat-containing Bochdalek hernia is seen at the left lung base. There is bibasilar scarring/atelectasis. There are trace pleural effusions with bibasilar scarring/atelectasis. There is a small to moderate hiatal her rodrigo. Liver: The unenhanced liver is normal in size, contour, and attenuation. There is no intrahepatic biliary ductal dilatation. Gallbladder: Surgically absent noting clips in the gallbladder fossa. Spleen: Normal in size and attenuation. Pancreas: The unenhanced pancreas is moderately atrophic and grossly unremarkable. Adrenal glands: Unremarkable. Kidneys: The unenhanced kidneys demonstrate cortical atrophy and are without hydronephrosis. There are no renal calculi identified. There is no evidence of contour deforming renal mass lesion. Abdominal vasculature: The abdominal aorta is normal in course and caliber noting mild atherosclerotic calcification. Bowel: Surgical clips are again noted in the stomach. There is mild to moderate sigmoid diverticulosis without CT evidence of acute diverticulitis. No bowel obstruction is identified. Fecal retention is noted throughout the colon. A duodenal diverticulum is noted. The appendix is not identified and reported surgically absent. Peritoneum: There is no intraperitoneal free air. Trace ascites is seen in the pelvis. Lymphadenopathy: None. Pelvic viscera: The bladder is normal as visualized. The uterus is surgically absent. No adnexal lesion is seen. Skeletal structures: The skeletal structures are osteopenic. There is advanced lumbosacral spondylosis and scoliosis. Spinal fusion is noted at L5-S1. No lytic or blastic lesions are seen. There are subacute/healing bilateral anterior 6th rib fractures. These are new from 11/02/2020. There has been continued healing of right pubic ring fractures as compared to previous. Moderate to advanced arthritic change is seen in the right hip. A neurostimulator device is present in the left gluteal soft tissues. Leads enter the central canal in the lower thoracic region. IMPRESSION: 1. Suboptimal examination without oral and IV contrast. 2. There are subacute/healing bilateral anterior 6th rib fractures. These are new from 11/02/2020. Correlate for point tenderness. 3. Cardiomegaly. Cardiac pacemaker leads are new from previous. 4. Trace pleural effusions. 5. A small volume of nonspecific free fluid is seen in the pelvis. 6. Additional findings as above. ACT 112: Negative or not required by law. Electronically signed by: Alexi Avendano M.D. 01/30/2021 3:42 PM Chest CTA 01/30/21 14:29 CT ANGIOGRAM OF THE CHEST CLINICAL HISTORY: Shortness of breath. Possible pulmonary embolism COMPARISON STUDY: 01/06/2016 TECHNIQUE: Following the IV administration of 119 mL of Optiray, CT angiogram of the thorax was performed from the thoracic inlet to the lung bases utilizing the pulmonary embolus protocol. Images are reviewed in the axial, sagittal, and coronal planes. IV contrast was administered without complication. MIP imaging was performed. A dose lowering technique was utilized adhering to the principles of ALARA. CT DOSE: 582.05 mGy.cm FINDINGS: No pathologically enlarged axillary mediastinal or hilar lymph nodes were visualized. There was no evidence of thoracic aortic dilatation. There were no pulmonary artery filling defects to indicate acute pulmonary embolism. There is a small left pleural effusion and trace right pleural effusion. There are bibasilar opacities, likely atelectatic. Spinal stimulator electrodes are visualized. There is a left subclavian pacemaker. There is a reverse total left shoulder arthroplasty. Arthritic changes are present within the right shoulder. IMPRESSION: 1. No evidence of acute pulmonary embolism 2. Very small bilateral pleural effusions 3. Mild basilar atelectasis. ACT 112: Negative or not required by law. Electronically signed by: Norris Keane M.D. 01/30/2021 3:49 PM Hospital Course (1) Chest pain: (2) Tachy-sheryl syndrome: (3) Pacemaker: (4) Dyspnea: (5) Paroxysmal atrial fibrillation: The patient is a 80-year-old female who presented with chest pain and shortness of breath for 3 weeks. Vital signs were normal on arrival and she was oxygenating well on room air. An elevated D-dimer was seen prompting a CTA of the chest and abdomen and pelvis which was negative. She was still reporting intermittent chest discomfort [facility] work revealed mild anemia with an H&H of 11.9/36.1 with an otherwise normal CBC. BMP was normal, urinalysis was normal. Troponin was negative. Lipase was 740. The patient reported significant pacemaker discomfort with the location of the pacemaker being mid to lateral on her chest wall. Cardiology was consulted and a resting echocardiogram was performed on 01/31. Cardiology noted the chest pain was atypical and worse with movement of her arm and shoulder with no evidence of acute ischemia by EKG or by enzyme trend overnight. Pacemaker has been functioning appropriately on recent interrogations. She did receive a single dose of diuretic overnight and did feel better with respect to dyspnea. LV systolic function was normal on echocardiogram and overall echo appeared stable to slightly improved from the last study. There was no pericardial effusion seen. There was no arrhythmias noted on telemetry. Her amiodarone was reduced to 100 mg p.o. daily and furosemide was added 20 mg twice weekly for volume management. It was recommended that she follow-up with her primary meat pumper in 3 to 4 weeks. At time of discharge she was hemodynamically stable and afebrile and feeling better from a symptom standpoint. She verbalized understanding of the changes in medications and was discharged in stable condition with close primary care follow-up recommended. Total Time Total Time Spent Total Time Spent (In Minutes): 60 Total Time Includes: Examination of the Patient, Discharge Planning, Medication Reconciliation and Communication With Other Providers Discharge Plan Discharge Items Patient Disposition: Home - Self-Care Reason For Visit: CHEST PAIN Discharge Diagnosis: Chest pain Dyspnea Condition on Discharge: Good Activity: Resume your previous activity Non-emergency contact: Primary Care Provider and Commutator Undercutter Call non-emergency contact if: you have any medication questions, your symptoms worsen, your pain is not controlled, your pain is worsening and you have a fever Follow-up/Referrals: Acosta Soto MD [Primary Care Provider] - Diet: Low Sodium (2gm) Addtl Attending Provider Instructions: Please take all medications as instructed on discharge as below. It is recommended that you follow-up with your primary care doctor within 1 week of discharge home to ensure you are still doing well and to recheck your blood pressure after changes that have happened with your medications. Furthermore, it may be important to check your kidney function and electrolytes with nonfasting blood work which may be ordered by her primary care doctor. Follow-up with your primary meat pumper in 3 to 4 weeks is recommended. It was a pleasure taking care of you! Please call if you have any questions or problems. You can reach a [facility] hospitalist on duty at [facility] 24 hours a day by calling [phone]. Take care of yourself. Arcelia Viramontes DO [facility] Hospitalist Pending Studies at Discharge: No Stand-Alone Forms: My [facility] Medications and DC Order Prescriptions: New amiodarone 100 mg tablet 100 mg PO DAILY Qty: 30 RF: 0 furosemide 20 mg Tablet 20 mg PO MoTh@0900 Qty: 30 RF: 0 Continued polyethylene glycol 3350 [Miralax] 17 gram Powder In Packet 17 g PO DAILY PRN (Reason: Constipation) RF: 0 armodafinil [Nuvigil] 250 mg Tablet 250 mg PO QAM RF: 0 Centrum Silver Women 8 mg iron-400 mcg-300 mcg Tablet 1 tab PO QAM RF: 0 calcium-vitamin D3-vitamin K [Viactiv] 650 mg-12.5 mcg-40 mcg Tablet,Chewable 2 tab PO DAILY RF: 0 diphenhydramine HCl [Benadryl] 25 mg capsule 50 mg PO HS PRN (Reason: Sleep) RF: 0 sucralfate 1 gram Tablet 1 g PO TIDM PRN (Reason: Nausea) RF: 0 escitalopram oxalate [Lexapro] 10 mg Tablet 10 mg PO DAILY RF: 0 hydrocodone-acetaminophen 10-325 mg Tablet 1 tab PO Q6H PRN (Reason: Pain) RF: 0 lorazepam 0.5 mg Tablet 0.5 mg PO Q6H PRN (Reason: Anxiety) RF: 0 meclizine 25 mg Tablet 25 mg PO TID PRN (Reason: Dizziness) RF: 0 pantoprazole 40 mg Tablet,Delayed Release (Dr/Ec) 40 mg PO BID RF: 0 hydroxyzine HCl 25 mg Tablet 25 mg PO BID PRN (Reason: Itching) RF: 0 dicyclomine 10 mg Capsule 10 mg PO BID RF: 0 tizanidine 4 mg Capsule 4 mg PO HS PRN (Reason: Muscle Spasm) RF: 0 levothyroxine 50 mcg Tablet 55 mcg PO Q2D RF: 0 levothyroxine 75 mcg Tablet 75 mcg PO Q2D RF: 0 zinc 50 mg Tablet 50 mg PO QDD RF: 0 Humira 40 mg/0.8 mL Syringe Kit 40 mg SUBCUT SA RF: 0 cholecalciferol (vitamin D3) [Vitamin D3] 25 mcg (1,000 unit) Tablet 1,000 unit PO DAILY RF: 0 PreserVision AREDS [id number],[id number] [id number]-[id number] Capsule 1 cap PO BID RF: 0 cyanocobalamin (vitamin B-12) [Vitamin B-12] 500 mcg Lozenge 500 mcg PO QDD RF: 0 losartan 100 mg Tablet 100 mg PO DAILY RF: 0 acetaminophen 325 mg Tablet 650 mg PO Q6H PRN (Reason: fever or pain) Qty: 100 RF: 0 Discontinued amiodarone 200 mg tablet 200 mg PO DAILY Qty: 30 RF: 8 Discharge Orders: Discharge Order (Routine); Ordered 01/31/21 Ordered By: Arcelia Viramontes Admission Data Admit Date/Time: 01/30/21 17:01 Attending Provider: Arcelia Viramontes Admit Provider: Mari Blackmno Primary Care Provider: Acosta Soto Other Providers: Mari Blackmon ; Kang Hinojosa Other Interventions: Discharge Summary Assessment (RN) Last Done: 01/31/21 18:01
== END 2021-01-31 19:08 | disposition home or self-care (01) ==
LOC: 2S 12:58 → ED 12:58 → SUATTDRO 17:01 → 2S 19:47
DX: I49.5 Sick sinus syndrome; Z95.0 Presence of cardiac pacemaker; R06.02 Shortness of breath; Z79.899 Other long term (current) drug therapy; I48.0 Paroxysmal atrial fibrillation; K21.9 Gastro-esophageal reflux disease without esophagitis; Z91.041 Radiographic dye allergy status; G47.33 Obstructive sleep apnea (adult) (pediatric); I10 Essential (primary) hypertension; D50.9 Iron deficiency anemia, unspecified; R07.89 Other chest pain

== ENCOUNTER 2022-04-10 11:44 | Inpatient (IN) ==
[2022-04-10 12:26] LABS: Basophils # (auto) 0.04 K/uL (0-0.2); Basophils % (auto) 0.6 %; Eosinophils # (auto) 0.09 K/uL (0-0.50); Eosinophils % (auto) 1.3 %; Hematocrit (blood only) 40.3 % (34.1-44.9); Hemoglobin 13.4 g/dl (12.0-16.0); Immature Granulocytes # (auto) 0.03 K/uL (0.00-0.02); Immature Granulocytes % (auto) 0.4 %; Lymphocytes # (auto) 1.34 K/uL (1.2-3.4); Lymphocytes % (auto) 19.7 %; Mean Corpuscular Hemoglobin 30.6 pg (25.0-34.0); Mean Corpuscular Hgb Conc 33.3 g/dL (32.0-36.0); Mean Platelet Volume 8.8 fL (9.4-12.3); Monocytes # (auto) 0.62 K/uL (0.24-0.82); Monocytes % (auto) 9.1 %; Neutrophils # (auto) 4.68 K/uL (1.4-6.5); Neutrophils % (auto) 68.9 %; Platelet Count 220 K/uL (130-400); RDW Coefficient of Variation 13.4 % (11.5-14.5); RDW Standard Deviation 45.8 fL (36.4-46.3); Red Blood Count 4.38 M/uL (3.93-5.22)
[2022-04-10 12:42] LABS: Alanine Aminotransferase 21 U/L (7-52); Albumin Globulin Ratio 1.2 (0.9-2); Albumin Level 3.8 gm/dl (3.4-5.0); Alkaline Phosphatase 67 U/L (34-104); Anion Gap 6 (3-11); Aspartate Aminotransferase 23 U/L (13-39); BUN Creatinine Ratio 36.6 (10-20); Bilirubin,Total 0.5 mg/dl (0.2-1.0); Blood Urea Nitrogen 34 mg/dl (6-23); Calcium 9.8 mg/dl (8.5-10.1); Carbon Dioxide 31 mmol/L (21-32); Chloride 104 mmol/L (98-107); Est GFR (African American) 67.7 ml/min; Est GFR (Non-African American) 58.5 ml/min; Globulin 3.3 gm/dl (2.5-4.0); Glucose 108 mg/dl (70-99(Fasting)); Sodium 141 mmol/L (136-145); Total Protein 7.1 gm/dl (6.0-8.3)
--- NOTE | 2022-04-10 13:24 | Emergency Department Note ---
History of Present Illness General Chief complaint: Illness Stated complaint: HEART TESTS Time Seen by Provider: 04/10/22 13:01 Source: patient and family (Who is at the bedside) Mode of arrival: ambulatory Limitations: no limitations History of Present Illness This patient is a 81-year-old female who comes in feeling generally tired and f atigued. Also has some left-sided chest pain which she describes as GI he coming intermittently lasting a few minutes nothing seems to make it better or worse although she says if she breathes cold air it helps. She has had no cough no blood or melena stool. She had pulmonary function test done on Friday and was breathing heavily for this and has had pain since then. She also had colorectal surgery in November and had a polyp removed which she tells me is noncancerous she says she has not felt right since then. No dysuria hematuria she is had negative COVID home test. She is followed by Dr. Ribera but saw Dr. Swanson and had some blood work yesterday and apparently was sent here for concern for abnormal tests. Home Medications Medication Instructions Recorded Confirmed Type armodafinil 250 mg tablet (Nuvigil) 250 mg PO QAM 07/15/18 02/11/22 History polyethylene glycol 3350 17 gram 17 g PO DAILY PRN Constipation 07/15/18 02/11/22 History oral powder packet (Miralax) multivit with 1 tab PO QAM 10/20/18 02/11/22 History byrpjqds-mqjf-RH-lutein 8 mg iron-400 mcg-300 mcg tablet (Centrum Silver Women) calcium 650 mg-vitamin D3 12.5 2 tab PO DAILY 03/05/19 02/11/22 History mcg-vitamin K 40 mcg chewable tablet (Viactiv) cholecalciferol (vitamin D3) 25 1,000 unit PO DAILY 11/02/20 02/11/22 History mcg (1,000 unit) tablet (Vitamin D3) cyanocobalamin (vitamin B-12) 500 500 mcg PO QDD 11/02/20 02/11/22 History mcg lozenges (Vitamin B-12) levothyroxine 75 mcg tablet 75 mcg PO Q2D 11/02/20 02/11/22 History losartan 100 mg tablet 100 mg PO DAILY 11/02/20 02/11/22 History vitamins A,C,O-rkuk-zqdayq 14,320 1 cap PO BID 11/02/20 02/11/22 History unit-226 mg-200 unit capsule (PreserVision AREDS) zinc 50 mg tablet 50 mg PO QDD 11/02/20 02/11/22 History acetaminophen 325 mg tablet 650 mg PO Q6H PRN fever or pain 11/03/20 02/11/22 Rx #100 tabs escitalopram oxalate 10 mg tablet 10 mg PO DAILY 01/30/21 02/11/22 History (Lexapro) hydrocodone 10 mg-acetaminophen 1 tab PO Q6H PRN Pain 01/30/21 02/11/22 History 325 mg tablet hydroxyzine HCl 25 mg tablet 25 mg PO BID PRN Itching 01/30/21 02/11/22 History levothyroxine 50 mcg tablet 55 mcg PO Q2D 01/30/21 02/11/22 History lorazepam 0.5 mg tablet 0.5 mg PO Q6H PRN Anxiety 01/30/21 02/11/22 History meclizine 25 mg tablet 25 mg PO TID PRN Dizziness 01/30/21 02/11/22 History pantoprazole 40 mg tablet,delayed 40 mg PO BID 01/30/21 02/11/22 History release sucralfate 1 gram tablet 1 g PO TIDM PRN Nausea 01/30/21 02/11/22 History tizanidine 4 mg capsule 4 mg PO HS PRN Muscle Spasm 01/30/21 02/11/22 History hydrochlorothiazide 12.5 mg capsule 12.5 mg PO DAILY 08/23/21 02/11/22 History Allergies Allergy/AdvReac Type Severity Reaction Status Date / Time bee venom protein (honey bee) Allergy Intermediate "SWELLED Verified 02/11/22 15:42 ALL UP" Iodinated Contrast Media Allergy Intermediate PASSED Verified 02/11/22 15:42 OUT-BODY FELT COLD ALL OVER venlafaxine Allergy Unknown Unknown Verified 02/11/22 15:42 gabapentin AdvReac Intermediate HORRIBLE Verified 02/11/22 15:42 HEADACHES rosuvastatin [From Crestor] AdvReac Intermediate PAIN IN Verified 02/11/22 15:42 JOINTS atorvastatin AdvReac Mild PAIN IN Verified 02/11/22 15:42 JOINTS shellfish derived AdvReac Mild Headache Verified 02/11/22 15:42 Past Med/Surg History Medical History Age related osteoporosis Chest pain Dyslipidemia Fibromyalgia GERD (gastroesophageal reflux disease) History of concussion MAY 2018 - 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 GETS HEADACHES FROM History of skin cancer Hx of sleep apnea COULDN'T TOLERATE CPAP/REPEAT TESTING SHOWED "DIDN'T NEED" CPAP Hypertension Hypothyroidism ARTHUR (obstructive sleep apnea) Osteoarthritis Rheumatoid arthritis Scoliosis Urinary incontinence Surgical History History of appendectomy History of bilateral cataract extraction History of bladder suspension procedure History of cardiac cath 4 YRS AGO..CHEST PAIN...ALTOONA - NO FINDINGS...HIATAL HERNIA DX History of colonoscopy History of endoscopy DILATION OF ESOPHAGUS History of eye surgery LASER History of laparoscopic cholecystectomy History of left knee replacement History of lumbar fusion History of partial colectomy History of partial hysterectomy History of rectocele REPAIR WITH MESH AND MESH SINCE REMOVED History of repair of hiatal hernia History of repair of right rotator cuff History of right knee surgery BRUSA SAC REMOVED History of total left knee replacement History of urologic surgery BLADDER TAC S/P lumbar fusion S/P repair of paraesophageal hernia Family History Sister Colorectal cancer Hypertension Mother Stroke Hypertension Other No pertinent family history Social History Smoking Status: Never smoker Hx Alcohol Use: No Hx Substance Use: No Preferred Language: Mohawk Communication Ability: Effective Check Viewer Required: No Beliefs That Will Affect Care: None marital status: Current Living Situation: Spouse Feels Safe at Home: Yes Assistive Devices: Denture - Upper, Denture - Lower and Glasses Review of Systems A total of 10 systems reviewed and were otherwise negative Physical Exam Vital Signs Vital Signs - 24 hr 04/10/22 11:51 04/10/22 13:56 04/10/22 13:58 Temperature 36.5 C Temperature Source Temporal Artery Scan Pulse Rate 71 60 Pulse Rate [Right Finger] 67 Pulse Rate from SpO2 Sensor Respiratory Rate 18 18 14 Respiratory Effort / Characteristics Non-Labored Spontaneous Respiratory Depth Normal Respiratory Pattern Regular Blood Pressure 135/67 Blood Pressure [Right Arm] 139/72 Blood Pressure Mean 89 Blood Pressure Mean [Right Arm] 94 Pulse Oximetry 98 97 Oxygen Delivery Method Room Air Sepsis Recent Fever Within 48 Hours No Sepsis New/Unexplained Change in Mental Status No Sepsis Action Taken by Nursing No Action Required 04/10/22 14:00 04/10/22 14:00 04/10/22 14:10 Temperature Temperature Source Pulse Rate 60 63 Pulse Rate [Right Finger] Pulse Rate from SpO2 Sensor Respiratory Rate 16 20 Respiratory Effort / Characteristics Respiratory Depth Respiratory Pattern Blood Pressure 136/69 Blood Pressure [Right Arm] Blood Pressure Mean 91 Blood Pressure Mean [Right Arm] Pulse Oximetry Oxygen Delivery Method Sepsis Recent Fever Within 48 Hours Sepsis New/Unexplained Change in Mental Status Sepsis Action Taken by Nursing 04/10/22 14:20 04/10/22 14:30 04/10/22 14:30 Temperature Temperature Source Pulse Rate 61 60 Pulse Rate [Right Finger] Pulse Rate from SpO2 Sensor 60 Respiratory Rate 16 12 Respiratory Effort / Characteristics Respiratory Depth Respiratory Pattern Blood Pressure 110/71 Blood Pressure [Right Arm] Blood Pressure Mean 84 Blood Pressure Mean [Right Arm] Pulse Oximetry 92 Oxygen Delivery Method Sepsis Recent Fever Within 48 Hours Sepsis New/Unexplained Change in Mental Status Sepsis Action Taken by Nursing 04/10/22 14:40 04/10/22 14:50 04/10/22 15:00 Temperature Temperature Source Pulse Rate 60 60 Pulse Rate [Right Finger] Pulse Rate from SpO2 Sensor 60 61 Respiratory Rate 15 12 Respiratory Effort / Characteristics Respiratory Depth Respiratory Pattern Blood Pressure 138/74 Blood Pressure [Right Arm] Blood Pressure Mean 95 Blood Pressure Mean [Right Arm] Pulse Oximetry 98 99 Oxygen Delivery Method Sepsis Recent Fever Within 48 Hours Sepsis New/Unexplained Change in Mental Status Sepsis Action Taken by Nursing 04/10/22 15:00 04/10/22 15:10 04/10/22 15:20 Temperature Temperature Source Pulse Rate 60 60 61 Pulse Rate [Right Finger] Pulse Rate from SpO2 Sensor 61 60 61 Respiratory Rate 14 14 19 Respiratory Effort / Characteristics Respiratory Depth Respiratory Pattern Blood Pressure Blood Pressure [Right Arm] Blood Pressure Mean Blood Pressure Mean [Right Arm] Pulse Oximetry 92 97 97 Oxygen Delivery Method Sepsis Recent Fever Within 48 Hours Sepsis New/Unexplained Change in Mental Status Sepsis Action Taken by Nursing 04/10/22 15:30 04/10/22 15:30 04/10/22 15:53 Temperature Temperature Source Pulse Rate 60 Pulse Rate [Right Finger] 60 Pulse Rate from SpO2 Sensor 60 Respiratory Rate 20 Respiratory Effort / Characteristics Respiratory Depth Respiratory Pattern Blood Pressure 107/73 Blood Pressure [Right Arm] 107/73 Blood Pressure Mean 84 Blood Pressure Mean [Right Arm] 84 Pulse Oximetry 99 93 Oxygen Delivery Method Room Air Sepsis Recent Fever Within 48 Hours Sepsis New/Unexplained Change in Mental Status Sepsis Action Taken by Nursing General: Well developed well nourished older female who appears in no acute distress, breathing comfortably on room air. Normal speech HEENT: Normal cephalic atraumatic. Pupils are equal round and reactive to light. Extraocular movements are intact. Oropharynx is pink with moist mucous membranes. No swelling of the mouth lips or tongue. Neck: Supple with a midline trachea. No meningeal signs or stiffness, no JVD or bruits. No Stridor. Chest: Clear to auscultation bilaterally. No wheezes or rhonchi. No increased work of breathing. Heart: Regular rate and rhythm without murmurs or gallops. Abdomen: Soft nontender, nondistended without rebound guarding or rigidity. Extremities: No cyanosis clubbing or edema. No calf tenderness or assymetry Spine/Back. Non tender to palpation. No CVA tenderness Skin: Good turgor without rashes. Neurologic exam: Cranial nerves two through 12 are intact. Motor and sensation are intact and symmetrical throughout. Medical Decision Making Differential Diagnosis Acute coronary syndrome, arrhythmia, PE, electrolyte or metabolic abnormality, CHF, pneumothorax, musculoskeletal, anemia, infection Medical Records Attestation: I reviewed the patient's medical records. Home Medications Current Medication List: was personally reviewed by me Laboratory Data Attestation: I reviewed the patient's lab results. Result diagrams: 04/10/22 12:07 04/10/22 12:07 Lab Results 04/10/22 04/10/22 04/10/22 Range/Units 12:07 12:07 12:07 WBC 6.80 (4.8-10.8) K/ul RBC 4.38 (3.93-5.22) M/uL Hgb 13.4 (12.0-16.0) g/dl Hct 40.3 (34.1-44.9) % MCV 92.0 (80.0-100.0) fL MCH 30.6 (25.0-34.0) pg MCHC 33.3 (32.0-36.0) g/dL RDW Std Deviation 45.8 (36.4-46.3) fL RDW Coeff of Kim 13.4 (11.5-14.5) % Plt Count 220 (130-400) K/uL MPV 8.8 L (9.4-12.3) fL Immature Gran % (Auto) 0.4 % Neut % (Auto) 68.9 % Lymph % (Auto) 19.7 % Peach % (Auto) 9.1 % Eos % (Auto) 1.3 % Baso % (Auto) 0.6 % Neut # (Auto) 4.68 (1.4-6.5) K/uL Lymph # (Auto) 1.34 (1.2-3.4) K/uL Peach # (Auto) 0.62 (0.24-0.82) K/uL Eos # (Auto) 0.09 (0-0.50) K/uL Baso # (Auto) 0.04 (0-0.2) K/uL Immature Gran # (Auto) 0.03 H (0.00-0.02) K/uL Sodium 141 (136-145) mmol/L Potassium 4.0 (3.5-5.1) mmol/L Chloride 104 (98-107) mmol/L Carbon Dioxide 31 (21-32) mmol/L Anion Gap 6 (3-11) BUN 34 H (6-23) mg/dl Creatinine 0.93 (0.6-1.2) mg/dl Est Cr Clr Drug Dosing Not Reportable Est GFR ( Amer) 67.7 ml/min Est GFR (Non-Af Amer) 58.5 ml/min BUN/Creatinine Ratio 36.6 H (10-20) Glucose 108 H (70-99(Fasting)) mg/dl Calcium 9.8 (8.5-10.1) mg/dl Total Bilirubin 0.5 (0.2-1.0) mg/dl AST 23 (13-39) U/L ALT 21 (7-52) U/L Alkaline Phosphatase 67 (34-104) U/L Troponin I High Sens 7.8 (0-14) pg/ml Total Protein 7.1 (6.0-8.3) gm/dl Albumin 3.8 (3.4-5.0) gm/dl Globulin 3.3 (2.5-4.0) gm/dl Albumin/Globulin Ratio 1.2 (0.9-2) TSH (0.300-4.500) uIu/ml Urine Color Urine Appearance (Clear) Urine pH (4.5-7.5) Ur Specific [place] (1.000-1.030) Urine Protein (Negative) Urine Glucose (UA) (Negative) Urine Ketones (Negative) Urine Blood (Negative) Urine Nitrite (Negative) Urine Bilirubin (Negative) Urine Urobilinogen (Negative) Ur Leukocyte Esterase (Negative) SARS-CoV-2, RNA, NAAT (NEGATIVE) 04/10/22 04/10/22 04/10/22 Range/Units 12:07 14:25 15:27 WBC (4.8-10.8) K/ul RBC (3.93-5.22) M/uL Hgb (12.0-16.0) g/dl Hct (34.1-44.9) % MCV (80.0-100.0) fL MCH (25.0-34.0) pg MCHC (32.0-36.0) g/dL RDW Std Deviation (36.4-46.3) fL RDW Coeff of Kim (11.5-14.5) % Plt Count (130-400) K/uL MPV (9.4-12.3) fL Immature Gran % (Auto) % Neut % (Auto) % Lymph % (Auto) % [place]ach % (Auto) % Eos % (Auto) % Baso % (Auto) % Neut # (Auto) (1.4-6.5) K/uL Lymph # (Auto) (1.2-3.4) K/uL Peach # (Auto) (0.24-0.82) K/uL Eos # (Auto) (0-0.50) K/uL Baso # (Auto) (0-0.2) K/uL Immature Gran # (Auto) (0.00-0.02) K/uL Sodium (136-145) mmol/L Potassium (3.5-5.1) mmol/L Chloride (98-107) mmol/L Carbon Dioxide (21-32) mmol/L Anion Gap (3-11) BUN (6-23) mg/dl Creatinine (0.6-1.2) mg/dl Est Cr Clr Drug Dosing Est GFR ( Amer) ml/min Est GFR (Non-Af Amer) ml/min BUN/Creatinine Ratio (10-20) Glucose (70-99(Fasting)) mg/dl Calcium (8.5-10.1) mg/dl Total Bilirubin (0.2-1.0) mg/dl AST (13-39) U/L ALT (7-52) U/L Alkaline Phosphatase (34-104) U/L Troponin I High Sens 7.2 (0-14) pg/ml Total Protein (6.0-8.3) gm/dl Albumin (3.4-5.0) gm/dl Globulin (2.5-4.0) gm/dl Albumin/Globulin Ratio (0.9-2) TSH 1.641 (0.300-4.500) uIu/ml Urine Color Yellow Urine Appearance Clear (Clear) Urine pH 5.5 (4.5-7.5) Ur Specific [place] 1.019 (1.000-1.030) Urine Protein Negative (Negative) Urine Glucose (UA) Negative (Negative) Urine Ketones Negative (Negative) Urine Blood Negative (Negative) Urine Nitrite Negative (Negative) Urine Bilirubin Negative (Negative) Urine Urobilinogen Negative (Negative) Ur Leukocyte Esterase Negative (Negative) SARS-CoV-2, RNA, NAAT (NEGATIVE) 04/10/22 Range/Units Unknown WBC (4.8-10.8) K/ul RBC (3.93-5.22) M/uL Hgb (12.0-16.0) g/dl Hct (34.1-44.9) % MCV (80.0-100.0) fL MCH (25.0-34.0) pg MCHC (32.0-36.0) g/dL RDW Std Deviation (36.4-46.3) fL RDW Coeff of Kim (11.5-14.5) % Plt Count (130-400) K/uL MPV (9.4-12.3) fL Immature Gran % (Auto) % Neut % (Auto) % Lymph % (Auto) % [place] % (Auto) % Eos % (Auto) % Baso % (Auto) % Neut # (Auto) (1.4-6.5) K/uL Lymph # (Auto) (1.2-3.4) K/uL [place] # (Auto) (0.24-0.82) K/uL Eos # (Auto) (0-0.50) K/uL Baso # (Auto) (0-0.2) K/uL Immature Gran # (Auto) (0.00-0.02) K/uL Sodium (136-145) mmol/L Potassium (3.5-5.1) mmol/L Chloride (98-107) mmol/L Carbon Dioxide (21-32) mmol/L Anion Gap (3-11) BUN (6-23) mg/dl Creatinine (0.6-1.2) mg/dl Est Cr Clr Drug Dosing Est GFR ( Amer) ml/min Est GFR (Non-Af Amer) ml/min BUN/Creatinine Ratio (10-20) Glucose (70-99(Fasting)) mg/dl Calcium (8.5-10.1) mg/dl Total Bilirubin (0.2-1.0) mg/dl AST (13-39) U/L ALT (7-52) U/L Alkaline Phosphatase (34-104) U/L Troponin I High Sens (0-14) pg/ml Total Protein (6.0-8.3) gm/dl Albumin (3.4-5.0) gm/dl Globulin (2.5-4.0) gm/dl Albumin/Globulin Ratio (0.9-2) TSH (0.300-4.500) uIu/ml Urine Color Urine Appearance (Clear) Urine pH (4.5-7.5) Ur Specific [place] (1.000-1.030) Urine Protein (Negative) Urine Glucose (UA) (Negative) Urine Ketones (Negative) Urine Blood (Negative) Urine Nitrite (Negative) Urine Bilirubin (Negative) Urine Urobilinogen (Negative) Ur Leukocyte Esterase (Negative) SARS-CoV-2, RNA, NAAT NEGATIVE (NEGATIVE) Imaging Data Attestation: I personally reviewed and interpreted this imaging study as follows: My Impression: Chest x-raycardiomegaly and pacemaker present but no acute infiltrate, failure, pneumothorax seen Radiologist's Impression: Chest X-Ray 04/10/22 13:13 SINGLE VIEW CHEST CLINICAL HISTORY: Atypical chest pain. FINDINGS: An AP, portable, upright chest radiograph is compared to study dated 02/11/2022 and correlated with chest CT dated 01/30/2021. A 2-lead cardiac pacemaker is unchanged in position. The heart is enlarged noting atherosclerotic calcification of the thoracic aorta. The pulmonary vasculature is noncongested. Scarring/atelectasis is present at both lung bases. The lungs and pleural spaces are otherwise clear. No pneumothorax is seen. The skeletal structures are osteopenic. There are healed left-sided rib fractures. Fusion hardware is noted in the lumbar spine. Intrathecal leads project over the thoracic spine. A left shoulder arthroplasty is in place. Advanced arthritic change is seen in the right shoulder. Surgical clips project over the stomach. IMPRESSION: 1. Cardiomegaly and cardiac pacemaker without radiographic evidence of congestive failure. 2. No airspace consolidation or large pleural effusion is identified. ACT 112: Negative or not required by law. Electronically signed by: Alexi Avendano M.D. 04/10/2022 1:31 PM ECG Data Attestation: I personally reviewed and interpreted this ECG as follows: Indication: + chest pain Rate (beats per minute): 62 Rhythm: + normal sinus ECG Intervals/blocks: + Normal QRS, + Normal QT and + Normal MT ECG [place]: + Normal ECG ST segments: + Normal ST segments ECG Findings: no PACs or no PVCs Comparison ECG Date: from (02/11/22) Change: no significant change Additional Comments: EKG #2: Paced rhythm with a rate of 61. No ischemic changes. Compared to EKG #1 paced rhythm has replaced sinus rhythm otherwise no change MDM Narrative This patient is a 81-year-old female who comes in after feeling generally weak. she also has left-sided chest pain. She has significant medical problems as well. IV access was established, blood work was obtained, EKG shows no ischemic changes or ectopy. She does have a pacemaker although on the EKG is not pacing. She has no white count or fever to suggest infection she has no significant anemia. she is no significant electrolyte or metabolic abnormalities with exception of BUN being mildly elevated this could be prerenal. Clinically, she does not look significantly dry however. EKG x2 does not show ischemic changes. Troponin x2 was negative. I did review the work-up done in the office and she did have an elevated troponin yesterday that was mildly elevated. She has a lot of chronic complaints with weakness but it seems that the chest pain is a newer complaints and is intermittent. I do think she would benefit from having further cardiac work-up and I did consult the [facility] hospitalist for admission/observation. Continuous cardiac monitoring: An order was placed in EMR for continuous school lunch monitor. Upon interpretation patient had to be in normal sinus rhythm with a rate of 60 Impression & Plan Chest pain, Weakness, Lab test negative for COVID-19 virus, SOB (shortness of breath) Discharge Plan Visit Data Chief Complaint: Illness Stated Complaint: HEART TESTS ED Provider: Roberth Breen Discharge Problem: Chest pain, Weakness, Lab test negative for COVID-19 virus, SOB (shortness of breath) Forms Stand Alone Forms: My [facility] Prescriptions Prescriptions: No Action polyethylene glycol 3350 [Miralax] 17 gram Powder In Packet 17 g PO DAILY PRN (Reason: Constipation) armodafinil [Nuvigil] 250 mg Tablet 250 mg PO QAM Centrum Silver Women 8 mg iron-400 mcg-300 mcg Tablet 1 tab PO QAM calcium-vitamin D3-vitamin K [Viactiv] 650 mg-12.5 mcg-40 mcg Tablet,Chewable 2 tab PO DAILY sucralfate 1 gram Tablet 1 g PO TIDM PRN (Reason: Nausea) escitalopram oxalate [Lexapro] 10 mg Tablet 10 mg PO DAILY hydrocodone-acetaminophen 10-325 mg Tablet 1 tab PO Q6H PRN (Reason: Pain) lorazepam 0.5 mg Tablet 0.5 mg PO Q6H PRN (Reason: Anxiety) meclizine 25 mg Tablet 25 mg PO TID PRN (Reason: Dizziness) pantoprazole 40 mg Tablet,Delayed Release (Dr/Ec) 40 mg PO BID hydroxyzine HCl 25 mg Tablet 25 mg PO BID PRN (Reason: Itching) tizanidine 4 mg Capsule 4 mg PO HS PRN (Reason: Muscle Spasm) levothyroxine 50 mcg Tablet 55 mcg PO Q2D Rx Instructions: PT CURRENTLY "OUT OF THIS DOSE". levothyroxine 75 mcg Tablet 75 mcg PO Q2D Rx Instructions: TAKING EVERY OTHER WITHOUT THE ALTERNATE DOSE BETWEEN. zinc 50 mg Tablet 50 mg PO QDD cholecalciferol (vitamin D3) [Vitamin D3] 25 mcg (1,000 unit) Tablet 1,000 unit PO DAILY PreserVision AREDS [id number] Capsule 1 cap PO BID cyanocobalamin (vitamin B-12) [Vitamin B-12] 500 mcg Lozenge 500 mcg PO QDD losartan 100 mg Tablet 100 mg PO DAILY acetaminophen 325 mg Tablet 650 mg PO Q6H PRN (Reason: fever or pain) Qty: 100 0RF hydrochlorothiazide 12.5 mg capsule 12.5 mg PO DAILY Referrals Referrals: Ambrose Ribera MD [Primary Care Provider] -
--- NOTE | 2022-04-10 13:33 | XRay Report ---
SINGLE VIEW CHEST CLINICAL HISTORY: Atypical chest pain. FINDINGS: An AP, portable, upright chest radiograph is compared to study dated 02/11/2022 and correlat ed with chest CT dated 01/30/2021. A 2-lead cardiac pacemaker is unchanged in position. The heart is e nlarged noting atherosclerotic calcification of the thoracic aorta. The pulmonary vasculature is nonc ongested. Scarring/atelectasis is present at both lung bases. The lungs and pleural spaces are otherw ise clear. No pneumothorax is seen. The skeletal structures are osteopenic. There are healed left-deuce ed rib fractures. Fusion hardware is noted in the lumbar spine. Intrathecal leads project over the th oracic spine. A left shoulder arthroplasty is in place. Advanced arthritic change is seen in the righ t shoulder. Surgical clips project over the stomach. IMPRESSION: 1. Cardiomegaly and cardiac pacemaker without radiographic evidence of congestive failure. 2. No airspace consolidation or large pleural effusion is identified. ACT 112: Negative or not required by law. Electronically signed by: Alexi Avendano M.D. 04/10/2022 1:31 PM
[2022-04-10 14:43] LABS: Appearance Urine Clear (Clear); Bilirubin Urine Negative (Negative); Blood Urine Negative (Negative); Color Urine Yellow; Glucose Urine UA Negative (Negative); Ketones Urine Negative (Negative); Leukocyte Esterase Urine Negative (Negative); Nitrite Urine Negative (Negative); Protein Urine Negative (Negative); Specific Gravity Urine 1.019 (1.000-1.030); Urobilinogen Urine Negative (Negative); pH Urine 5.5 (4.5-7.5)
[2022-04-10] MEDS ORDERED: NITROGLYCERIN SL 0.4 MG/TAB TAB SL PRN (16:14)
[2022-04-10] MEDS ORDERED: ACETAMINOPHEN 325 MG TAB PO PRN (16:14)
[2022-04-10] MEDS ORDERED: POLYETHYLENE (MIRALAX) 17 GM PACK PO PRN ×2 (16:14→18:23)
[2022-04-10] MEDS ORDERED: ALUMINUM/MAGNESIUM SUSP 30 ML UDC PO PRN (16:14)
--- NOTE | 2022-04-10 16:29 | History & Physical Report ---
Date of Service April 10, 2022 Assessment & Plan (1) Chest pain: Plan Chest pain rule out ACS Patient presents with intermittent chest pain since 5 to 6 days [employer] after having pulmonary function test as an outpatient Patient was reported to have elevated troponin at 21 at PCPs office and was asked to go to ED for further evaluation Admitting EKG with NSR, admitting troponin negative, trend troponins, echo Admitting CXR w/ no acute findings. Cardiology consult EKG as needed for chest pain, Nitro sl prn Heart healthy diet, n.p.o. midnight for possible procedures in a.m. for cardiology evaluation Telemetry monitoring Other chronic medical conditions: Intermittent on and off belly pain, GERD, hypothyroidism--> continue with/resume home meds as and when appropriate. Full code DVT prophylaxis: Heparin subcu History of Present Illness Chief Complaint: Intermittent chest heaviness since last 5 to 6 days Primary Care Provider: Ambrose Ribera MD 81-year-old lady with PMH of paroxysmal A. fib, status cardiac pacemaker, chronic diastolic heart failure, GERD, nutcracker esophagus, urgency incontinence of urine, CKD stage IIIa, paraesophageal hernia, chronic migraine, iron deficiency anemia, rheumatoid arthritis, BCC of skin presented to our ED 04/10 with complaint of being tired/exhausted/intermittent chest heaviness or pain since last 5 to 6 days after undergoing pulmonary function test. Patient reports having " mild quick pain" in the left chest radiating to the back, lasting few seconds, having such episodes up to 5 times a day, has not been able to relate it with any activities. Patient also reports dizziness since about the same time. Patient denies any cough or palpitation, does report burning in her lower chest which is relieved with antacid and has been going on for a while and this chest pain sensation at presentation is new in the last week. Patient also reports having belly pain on and off after GI polyp resection in November of this year. Patient denies any pain or burning with passing urine, patient reports being at her baseline with regard to her bowel movements. Patient denies smoking/use of alcohol/use of recreational drugs or marijuana. Patient is full code. 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 Patient denies any personal history of blood clot but does have multiple recurrences of basal cell carcinoma which she is closely following up with dermatology as an outpatient. Patient does report having 2 sisters with colon cancer, all family with heart problems, mom had heart problems started in her 50s and of heart problem at 65, father had some heart problem and from heart problem at 57. Patient not able to go into specifics of kind of heart problems. Allergies Allergy/AdvReac Type Severity Reaction Status Date / Time bee venom protein (honey bee) Allergy Intermediate "SWELLED Verified 04/10/22 18:00 ALL UP" Iodinated Contrast Media Allergy Intermediate PASSED Verified 04/10/22 18:00 OUT-BODY FELT COLD ALL OVER venlafaxine Allergy Unknown Unknown Verified 04/10/22 18:00 gabapentin AdvReac Intermediate HORRIBLE Verified 02/11/22 15:42 HEADACHES rosuvastatin [From Crestor] AdvReac Intermediate PAIN IN Verified 04/10/22 18:00 JOINTS atorvastatin AdvReac Mild PAIN IN Verified 04/10/22 18:00 JOINTS shellfish derived AdvReac Mild Headache Verified 04/10/22 18:00 Home Medications Medication Instructions Recorded Confirmed Type armodafinil 250 mg tablet (Nuvigil) 250 mg PO QAM 07/15/18 04/10/22 History polyethylene glycol 3350 17 gram 17 g PO DAILY PRN Constipation 07/15/18 04/10/22 History oral powder packet (Miralax) multivit with 1 tab PO QAM 10/20/18 04/10/22 History voahsyik-svos-PA-lutein 8 mg iron-400 mcg-300 mcg tablet (Centrum Silver Women) calcium 650 mg-vitamin D3 12.5 2 tab PO DAILY 03/05/19 04/10/22 History mcg-vitamin K 40 mcg chewable tablet (Viactiv) cholecalciferol (vitamin D3) 25 1,000 unit PO DAILY 11/02/20 04/10/22 History mcg (1,000 unit) tablet (Vitamin D3) cyanocobalamin (vitamin B-12) 500 500 mcg PO QDD 11/02/20 04/10/22 History mcg lozenges (Vitamin B-12) levothyroxine 75 mcg tablet 75 mcg PO Q2D 11/02/20 04/10/22 History losartan 100 mg tablet 100 mg PO DAILY 11/02/20 04/10/22 History vitamins A,C,M-gftf-zlrkwo 14,320 1 cap PO BID 11/02/20 04/10/22 History unit-226 mg-200 unit capsule (PreserVision AREDS) acetaminophen 325 mg tablet 650 mg PO Q6H PRN fever or pain 11/03/20 04/10/22 Rx #100 tabs escitalopram oxalate 10 mg tablet 10 mg PO DAILY 01/30/21 04/10/22 History (Lexapro) hydrocodone 10 mg-acetaminophen 1 tab PO Q6H PRN Pain 01/30/21 04/10/22 History 325 mg tablet hydroxyzine HCl 25 mg tablet 25 mg PO BID PRN Itching 01/30/21 04/10/22 History levothyroxine 50 mcg tablet 50 mcg PO Q2D 01/30/21 04/10/22 History lorazepam 0.5 mg tablet 0.5 mg PO Q6H PRN Anxiety 01/30/21 04/10/22 History meclizine 25 mg tablet 25 mg PO TID PRN Dizziness 01/30/21 04/10/22 History pantoprazole 40 mg tablet,delayed 40 mg PO BID 01/30/21 04/10/22 History release sucralfate 1 gram tablet 1 g PO TIDM PRN Nausea 01/30/21 04/10/22 History tizanidine 4 mg capsule 4 mg PO HS PRN Muscle Spasm 01/30/21 04/10/22 History hydrochlorothiazide 12.5 mg capsule 12.5 mg PO DAILY 08/23/21 04/10/22 History fentanyl 25 mcg/hr transdermal 25 mcg transdermal Q72H 04/10/22 04/10/22 History patch zinc 50 mg tablet 50 mg PO DAILY 04/10/22 04/10/22 History Past Med/Surg History Medical History Age related osteoporosis Chest pain Dyslipidemia Fibromyalgia GERD (gastroesophageal reflux disease) History of concussion MAY 2018 - 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 GETS HEADACHES FROM History of skin cancer Hx of sleep apnea COULDN'T TOLERATE CPAP/REPEAT TESTING SHOWED "DIDN'T NEED" CPAP Hypertension Hypothyroidism ARTHUR (obstructive sleep apnea) Osteoarthritis Rheumatoid arthritis Scoliosis Urinary incontinence Surgical History History of appendectomy History of bilateral cataract extraction History of bladder suspension procedure History of cardiac cath 4 YRS AGO..CHEST PAIN...ALTOONA - NO FINDINGS...HIATAL HERNIA DX History of colonoscopy History of endoscopy DILATION OF ESOPHAGUS History of eye surgery LASER History of laparoscopic cholecystectomy History of left knee replacement History of lumbar fusion History of partial colectomy History of partial hysterectomy History of rectocele REPAIR WITH MESH AND MESH SINCE REMOVED History of repair of hiatal hernia History of repair of right rotator cuff History of right knee surgery BRUSA SAC REMOVED History of total left knee replacement History of urologic surgery BLADDER TAC S/P lumbar fusion S/P repair of paraesophageal hernia Family History Sister Colorectal cancer Hypertension Mother Stroke Hypertension Other No pertinent family history Social History Smoking Status: Never smoker Hx Alcohol Use: No Hx Substance Use: No Preferred Language: Japanese Communication Ability: Effective Program Associate Required: No Beliefs That Will Affect Care: None marital status: Current Living Situation: Spouse Feels Safe at Home: Yes Assistive Devices: Denture - Upper, Denture - Lower and Glasses Review of Systems Review of Systems: Negative otherwise mentioned in HPI. Physical Exam Physical Exam: GENERAL: Alert and oriented x3. NAD, on RA. HEENT: No pallor, no icterus. Pupils equal, round and reactive to light. Oral mucosa moist. NECK: No JVD, no neck masses. HEART: S1 and S2 heard. Regular rate and rhythm. No murmur, no gallop. RESPIRATORY SYSTEM: Normal AP diameter. No accessory muscle use. No wheezing, no crackles. ABDOMEN: Soft, bowel sounds present, nontender, no distention. CENTRAL NERVOUS SYSTEM: No facial droop. Speech is clear. Obeys simple commands. Moves extremities. EXTREMITIES: No edema, no erythema seen. Rt leg w/ BCC lesion posteromedially. No signs of infection. Results & Data Results & Data ([facility]) Vital Signs (Past 12 Hours) Vital Signs Temp Pulse Pulse Resp BP BP Pulse Ox 04/10/22 15:53 60 107/73 93 04/10/22 15:30 60 20 99 04/10/22 15:30 107/73 04/10/22 15:20 61 19 97 04/10/22 15:10 60 14 97 04/10/22 15:00 60 14 92 04/10/22 15:00 138/74 04/10/22 14:50 60 12 99 04/10/22 14:40 60 15 98 04/10/22 14:30 60 12 04/10/22 14:30 110/71 04/10/22 14:20 61 16 92 04/10/22 14:10 63 20 04/10/22 14:00 60 16 04/10/22 14:00 136/69 04/10/22 13:58 60 14 04/10/22 13:56 67 18 139/72 97 04/10/22 11:51 36.5 C 71 18 135/67 98 O2 Del Method 04/10/22 15:53 Room Air 04/10/22 15:30 04/10/22 15:30 04/10/22 15:20 04/10/22 15:10 04/10/22 15:00 04/10/22 15:00 04/10/22 14:50 04/10/22 14:40 04/10/22 14:30 04/10/22 14:30 04/10/22 14:20 04/10/22 14:10 04/10/22 14:00 04/10/22 14:00 04/10/22 13:58 04/10/22 13:56 04/10/22 11:51 Room Air Code Status & VTE Plan VTE Prophylaxis Plan VTE Prophylaxis will be ordered: Yes
[2022-04-10] MEDS ORDERED: tiZANidine HCL 4 MG TABLET PO PRN (18:23)
[2022-04-10] MEDS ORDERED: MECLIZINE HCL 25 MG TAB PO PRN (18:23)
[2022-04-10] MEDS ORDERED: LORazepam 0.5 MG TAB PO PRN (18:23)
[2022-04-10] MEDS ORDERED: hydrOXYzine HCl 25 MG TAB PO PRN (18:23)
[2022-04-10] MEDS ORDERED: traMADol HCL 50 MG TABLET PO PRN (20:50)
[2022-04-10] MEDS: CEROVITE ADV FORMULA TAB PO SCH (20:53)
[2022-04-10] MEDS: PANTOprazole 40 MG TAB PO SCH (20:53)
[2022-04-10] MEDS: HEPARIN SOD 5,000 UNIT/0.5 ML VIAL SQ SCH (20:55)
[2022-04-10 21:27] LABS: Partial Thromboplastin Ratio 0.9
--- NOTE | 2022-04-10 22:29 | Communication Note ---
Date of Service: April 10, 2022 Patient with chest pain relieved by nitroglycerin. EKG as per my interpretation : rate 60, paced rhythm trop x 3 negative AP Unstable angina N.p.o. until patient seen by Cardiology in a.m. in anticipation of ischemic work-up Aspirin for CAD prevention until ACS definitively ruled out.
[2022-04-11 06:05] LABS: Hematocrit (blood only) 35.8 % (34.1-44.9); Mean Corpuscular Hemoglobin 30.6 pg (25.0-34.0); Mean Corpuscular Hgb Conc 33.5 g/dL (32.0-36.0); Mean Corpuscular Volume 91.3 fL (80.0-100.0); Mean Platelet Volume 8.8 fL (9.4-12.3); Platelet Count 195 K/uL (130-400); RDW Coefficient of Variation 13.3 % (11.5-14.5); Red Blood Count 3.92 M/uL (3.93-5.22); White Blood Count 5.62 K/ul (4.8-10.8)
[2022-04-11 06:30] LABS: BUN Creatinine Ratio 32.5 (10-20); Calcium 9.4 mg/dl (8.5-10.1); Creatinine Clr Calc Pharmacy 43.8 ml/min; Est GFR (African American) 85.1 ml/min; Est GFR (Non-African American) 73.4 ml/min; Magnesium 1.7 mg/dl (1.7-2.4); Phosphorus 3.3 mg/dl (2.5-4.9)
[2022-04-11 06:33] LABS: Troponin I High Sensitivity 8.3 pg/ml (0-14)
[2022-04-11 07:26] LABS: Partial Thromboplastin Ratio 0.9; Partial Thromboplastin Time 25.2 Seconds (21.0-31.0)
--- NOTE | 2022-04-11 08:16 | Cardiology Consultation ---
Date of Consultation April 11, 2022 Assessment & Plan (1) Chest pain: (2) Fatigue: Plan Atypical chest pain symptoms. Normal HS trop inpatient. No further chest pain, heaviness, or dyspnea. Ppm site pain- will need to follow up with outpatient cardiology regarding possible pocket revision. Resting echo showing a normal LV systolic function without wall motion abnormalities. No need to repeat stress testing at this time- negative outpatient nuclear 11/2021. Okay to have a diet- heart healthy diet ordered. In regards to fatigue- likely due to untreated ARTHUR, should consider nocturnal pulse ox study prior to discharge or as an outpatient. Case discussed with Dr. Nixon-patient clinically stable for discharge from a cardiac standpoint. She should follow-up with her primary new car driver, Dr. Bain as scheduled on 05/03. Supervising Physician Co-Signing Physician Notes I have seen and examined the patient. I reviewed the medical record and discussed the case with the SUPERVISING APPRAISER. I agree her chest pain is atypical. I would recommend no additional testing or cardiac treatment. I think the patient can be discharged and follow-up with her new car driver Dr. Bain at [facility]. History of Present Illness Reason for Consultation: Chest heaviness Requesting Physician: Jennifer Campos Attending Physician: Arcelia Viramontes DO History of Present Illness 81-year-old female presented to the emergency department due to chest heaviness and dyspnea after completing PFTs. Was seen by PCP on 04/09. Outpatient high- sensitivity troponin minimally elevated at 21 on 04/09. Patient was referred to the ED. Has followed with the undersigned approximately 1 year ago. Recently she has been following with Dr. Bain and Dr. Rodriguez at [facility]. Last October she was seen by Dr. Bain due to concerns of intermittent chest discomfort around her pacemaker site. Continued clinical monitoring versus pocket revision was discussed. Patient opted for ongoing clinical observation. Patient went on to have nuclear stress testing done 11/2021 which was negative. Results can be viewed in care everywhere in [facility]. Was seen by Dr. Rodriguez on 02/21. Patient has had frequent falls and has been unable to take anticoagulation in regards to her atrial fibrillation. Discussed watchman implantation patient was agreeable at this time. Planning on having procedure done 05/24. Will be following up with Dr. Bain on 05/03 Chart and telemetry reviewed. Patient seen and examined at bedside. Upon entrance patient resting comfortably in bed without concern. Does have "heart burn" to her reflux medications this am. Chest heaviness/dyspnea- denies chest pain, feels that she us just unable to take a deep breath in. No further episodes since coming to the hospital. Nonexertional. Pacemaker site discomfort- ongoing since ppm placement. able to reproduce on exam. No palpitations, dizziness, or syncope. No orthopnea, PND, or lower extremity edema. Notes fatigue- does have ARTHUR, doesn't wear CPAP due to "air being pushed into her abdomen"- formally wore O2 only, having difficulty obtaining again. Telemetry: SR/paced 60-70s Labs: Unremarkable thus far. High-sensitivity troponin negative x4 Chest x-ray: Cardiomegaly and cardiac pacemaker without radiographic evidence of CHF, no airspace consolidation or large pleural effusions identified EKG: A paced rhythm, 60 bpm Outpatient PFTs: not consistent with COPD or Asthma per pulmonary Echo 04/11: LVEF 55 to 60% with no wall motion abnormalities, grade 1 diastolic dysfunction. Mild MR and TR. Cardiac problems TBS, s/p ppm 11/14/2020 Elevated RV threshold Wenckebach >120 bpm PAF, did not tolerate AVN or AC, on amiodarone, [id number] score of 3 (age 4, female) Intolerant to anticoagulation in the past, states that she feels poorly on it Hypothyroidism ARTHUR, not on CPAP Mild to moderate mitral regurg, mild tricuspid regurg Vertigo HTN Anemia GERD Allergies Allergy/AdvReac Type Severity Reaction Status Date / Time bee venom protein (honey bee) Allergy Intermediate "SWELLED Verified 04/10/22 18:00 ALL UP" Iodinated Contrast Media Allergy Intermediate PASSED Verified 04/10/22 18:00 OUT-BODY FELT COLD ALL OVER venlafaxine Allergy Unknown Unknown Verified 04/10/22 18:00 gabapentin AdvReac Intermediate HORRIBLE Verified 02/11/22 15:42 HEADACHES rosuvastatin [From Crestor] AdvReac Intermediate PAIN IN Verified 04/10/22 18:00 JOINTS atorvastatin AdvReac Mild PAIN IN Verified 04/10/22 18:00 JOINTS shellfish derived AdvReac Mild Headache Verified 04/10/22 18:00 Home Medications Medication Instructions Recorded Confirmed Type armodafinil 250 mg tablet (Nuvigil) 250 mg PO QAM 07/15/18 04/10/22 History polyethylene glycol 3350 17 gram 17 g PO DAILY PRN Constipation 07/15/18 04/10/22 History oral powder packet (Miralax) multivit with 1 tab PO QAM 10/20/18 04/10/22 History wdhaushk-aquk-XP-lutein 8 mg iron-400 mcg-300 mcg tablet (Centrum Silver Women) calcium 650 mg-vitamin D3 12.5 2 tab PO DAILY 03/05/19 04/10/22 History mcg-vitamin K 40 mcg chewable tablet (Viactiv) cholecalciferol (vitamin D3) 25 1,000 unit PO DAILY 11/02/20 04/10/22 History mcg (1,000 unit) tablet (Vitamin D3) cyanocobalamin (vitamin B-12) 500 500 mcg PO QDD 11/02/20 04/10/22 History mcg lozenges (Vitamin B-12) levothyroxine 75 mcg tablet 75 mcg PO Q2D 11/02/20 04/10/22 History losartan 100 mg tablet 100 mg PO DAILY 11/02/20 04/10/22 History vitamins A,C,M-zxyg-pgsrqo 14,320 1 cap PO BID 11/02/20 04/10/22 History unit-226 mg-200 unit capsule (PreserVision AREDS) acetaminophen 325 mg tablet 650 mg PO Q6H PRN fever or pain 11/03/20 04/10/22 Rx #100 tabs escitalopram oxalate 10 mg tablet 10 mg PO DAILY 01/30/21 04/10/22 History (Lexapro) hydrocodone 10 mg-acetaminophen 1 tab PO Q6H PRN Pain 01/30/21 04/10/22 History 325 mg tablet hydroxyzine HCl 25 mg tablet 25 mg PO BID PRN Itching 01/30/21 04/10/22 History levothyroxine 50 mcg tablet 50 mcg PO Q2D 01/30/21 04/10/22 History lorazepam 0.5 mg tablet 0.5 mg PO Q6H PRN Anxiety 01/30/21 04/10/22 History meclizine 25 mg tablet 25 mg PO TID PRN Dizziness 01/30/21 04/10/22 History pantoprazole 40 mg tablet,delayed 40 mg PO BID 01/30/21 04/10/22 History release sucralfate 1 gram tablet 1 g PO TIDM PRN Nausea 01/30/21 04/10/22 History tizanidine 4 mg capsule 4 mg PO HS PRN Muscle Spasm 01/30/21 04/10/22 History hydrochlorothiazide 12.5 mg capsule 12.5 mg PO DAILY 08/23/21 04/10/22 History fentanyl 25 mcg/hr transdermal 25 mcg transdermal Q72H 04/10/22 04/10/22 History patch zinc 50 mg tablet 50 mg PO DAILY 04/10/22 04/10/22 History Patient History Medical History Age related osteoporosis Chest pain Dyslipidemia Fibromyalgia GERD (gastroesophageal reflux disease) History of concussion MAY 2018 - 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 GETS HEADACHES FROM History of skin cancer Hx of sleep apnea COULDN'T TOLERATE CPAP/REPEAT TESTING SHOWED "DIDN'T NEED" CPAP Hypertension Hypothyroidism ARTHUR (obstructive sleep apnea) Osteoarthritis Rheumatoid arthritis Scoliosis Urinary incontinence Surgical History History of appendectomy History of bilateral cataract extraction History of bladder suspension procedure History of cardiac cath 4 YRS AGO..CHEST PAIN...ALTOONA - NO FINDINGS...HIATAL HERNIA DX History of colonoscopy History of endoscopy DILATION OF ESOPHAGUS History of eye surgery LASER History of laparoscopic cholecystectomy History of left knee replacement History of lumbar fusion History of partial colectomy History of partial hysterectomy History of rectocele REPAIR WITH MESH AND MESH SINCE REMOVED History of repair of hiatal hernia History of repair of right rotator cuff History of right knee surgery BRUSA SAC REMOVED History of total left knee replacement History of urologic surgery BLADDER TAC S/P lumbar fusion S/P repair of paraesophageal hernia Family History Sister Colorectal cancer Hypertension Mother Stroke Hypertension Other No pertinent family history Social History Smoking Status: Never smoker Hx Alcohol Use: No Hx Substance Use: No Preferred Language: Telugu Communication Ability: Effective Armorer Technician Required: No Beliefs That Will Affect Care: None marital status: Current Living Situation: Spouse Other Information That Helps Us Care for You: No Feels Safe at Home: Yes and No Is there a partner from a previous relationship who is making you feel unsafe now?: No Any Concerns about Your Family Situation: No Would You Like to Speak to Someone About Your Situation: No Safety Concerns: Feels Safe At This Time Assistive Devices: Denture - Upper, Denture - Lower and Glasses Review of Systems Review of Systems: All systems reviewed & are unremarkable except as noted in HPI & below Physical Exam Physical Exam: General: No acute distress. A+Ox3. HEENT: Normocephalic. Atraumatic. PERRL. EOMI. Conjunctiva and sclera clear. NECK: No carotid bruits. No JVD. Carotid upstrokes are brisk. Heart: RRR. S1 and S2 noted without murmur, rubs, gallops. PMI non displaced. Lungs: Clear to auscultation. No wheezes, rhonchi, rales. Abdomen: Normal bowel sounds. Soft. Nontender. No masses or organomegaly. No abdominal bruits. Extremities: No edema. No clubbing or cyanosis. Multiple bruises on bilateral legs and arms. Pulses: radial=2/4, posterior tibial=2/4, dorsalis pedis = 2/4. NEURO: No focal deficits. PSYCH: Normal Results & Data ([facility]) Vital Signs (Past 12 Hours) Vital Signs Temp Pulse Pulse Resp BP Pulse Ox O2 Del Method 04/11/22 08:00 36.9 C 70 18 118/61 95 04/11/22 03:45 36.6 C 60 18 112/70 94 Room Air 04/10/22 22:18 64 04/10/22 23:32 36.9 C 61 18 118/68 94 Room Air 04/10/22 20:51 83 106/66 Laboratory Results Cardiac Enzymes 04/10/22 04/10/22 04/10/22 Range/Units 12:07 12:07 15:27 AST 23 (13-39) U/L Troponin I High Sens 7.8 7.2 (0-14) pg/ml 04/10/22 04/11/22 Range/Units 20:58 05:37 AST (13-39) U/L Troponin I High Sens 8.5 8.3 (0-14) pg/ml Coagulation 04/10/22 04/11/22 Range/Units 20:58 05:37 APTT 25.0 25.2 (21.0-31.0) Seconds CBC 04/10/22 04/11/22 Range/Units 12:07 05:37 WBC 6.80 5.62 (4.8-10.8) K/ul RBC 4.38 3.92 L (3.93-5.22) M/uL Hgb 13.4 12.0 (12.0-16.0) g/dl Hct 40.3 35.8 (34.1-44.9) % Plt Count 220 195 (130-400) K/uL Neut # (Auto) 4.68 (1.4-6.5) K/uL Lymph # (Auto) 1.34 (1.2-3.4) K/uL [place] # (Auto) 0.62 (0.24-0.82) K/uL Eos # (Auto) 0.09 (0-0.50) K/uL Baso # (Auto) 0.04 (0-0.2) K/uL Comprehensive Metabolic Panel 04/10/22 04/11/22 Range/Units 12:07 05:37 Sodium 141 140 (136-145) mmol/L Potassium 4.0 4.0 (3.5-5.1) mmol/L Chloride 104 106 (98-107) mmol/L Carbon Dioxide 31 30 (21-32) mmol/L BUN 34 H 25 H (6-23) mg/dl Creatinine 0.93 0.77 (0.6-1.2) mg/dl Glucose 108 H 88 (70-99(Fasting)) mg/dl Calcium 9.8 9.4 (8.5-10.1) mg/dl AST 23 (13-39) U/L ALT 21 (7-52) U/L Alkaline Phosphatase 67 (34-104) U/L Total Protein 7.1 (6.0-8.3) gm/dl Albumin 3.8 (3.4-5.0) gm/dl Intake and Output 04/10/22 04/11/22 04/11/22 22:59 06:59 14:59 Intake Total 150 / 150 Balance 150 / 150 Intake: Oral 150 / 150 Other: Other Intake Source NPO # Unmeasured Voids 1 1 Weight 52.6 kg 52.4 kg Weight Measurement Method Standing Scale Standing Scale Diagnostic Findings Nuclear stress 11/[address] [facility] Probability of CAD: Relatively low Probability of Ischemia: Relatively low Extent of Ischemia: No significant ischemia Severity of Ischemia: No significant ischemia Risk - Mortality: Low risk (based on LVEF and total defect size) Risk - Coronary Events: Low risk (based on severity of ischemia) Probability of Infarction:Relatively low Extent of Infarction: No significant infarction Severity of Infarction: No significant infarction Final Assessment: The SPECT perfusion images are considered to be within normal limits. (1) Chest pain Chest pain type: precordial pain Qualified Code(s): R07.2 - Precordial pain
[2022-04-11] MEDS: ASPIRIN 81 MG ECTAB PO SCH (08:40)
[2022-04-11] MEDS: CEROVITE ADV FORMULA TAB PO SCH ×2 (08:40→20:36)
[2022-04-11] MEDS: hydroCHLOROthiazide 25 MG TAB PO SCH (08:40)
[2022-04-11] MEDS: ESCITALOPRAM OXALATE 10 MG TAB PO SCH (08:40)
[2022-04-11] MEDS: LOSARTAN POTASSIUM 50 MG TAB PO SCH (08:40)
[2022-04-11] MEDS: PANTOprazole 40 MG TAB PO SCH ×2 (08:40→20:36)
[2022-04-11] MEDS: CHOLECALCIFEROL 1,000 UNITS 25 MCG TAB PO SCH (08:41)
[2022-04-11] MEDS: HEPARIN SOD 5,000 UNIT/0.5 ML VIAL SQ SCH ×2 (08:41→20:36)
--- NOTE | 2022-04-11 10:13 | Electrocardiogram Report ---
Test Reason : Blood Pressure : / mmHG Vent. Rate : 062 BPM Atrial Rate : 062 BPM P-R Int : 136 ms QRS Dur : 090 ms QT Int : 406 ms P-R-T Axes : 041 -07 026 degrees QTc Int : 412 ms Poor data quality, interpretation may be adversely affected Normal sinus rhythm Normal ECG When compared with ECG of 11-FEB-2022 12:40, Sinus rhythm has replaced Electronic atrial pacemaker Confirmed by Jb Freeman ([id number]) on 04/11/2022 10:13:31 AM Referred By: Confirmed By:Jb Freeman
[2022-04-11] MEDS: HYDROcodone/ACETAMINOPHEN 10/325 TAB PO PRN ×2 (11:33→17:56)
--- NOTE | 2022-04-11 13:03 | Electrocardiogram Report ---
Test Reason : Blood Pressure : / mmHG Vent. Rate : 061 BPM Atrial Rate : 061 BPM P-R Int : 176 ms QRS Dur : 084 ms QT Int : 420 ms P-R-T Axes : -11 -02 020 degrees QTc Int : 422 ms Poor data quality, interpretation may be adversely affected Atrial-paced rhythm Abnormal ECG When compared with ECG of 10-APR-2022 12:05, Electronic atrial pacemaker has replaced Sinus rhythm Confirmed by Jb Freeman ([id number]) on 04/11/2022 1:03:19 PM Referred By: REFERRED SELF Confirmed By:Jb Freeman
--- NOTE | 2022-04-11 13:12 | Electrocardiogram Report ---
Test Reason : Blood Pressure : / mmHG Vent. Rate : 060 BPM Atrial Rate : 060 BPM P-R Int : 156 ms QRS Dur : 092 ms QT Int : 412 ms P-R-T Axes : 073 -13 016 degrees QTc Int : 412 ms Poor data quality, interpretation may be adversely affected Atrial-paced rhythm Abnormal ECG When compared with ECG of 10-APR-2022 15:23, No significant change was found Confirmed by Jb Freeman ([id number] on 04/11/2022 1:12:08 PM Referred By: REFERRED SELF Confirmed By:Jb Freeman
--- NOTE | 2022-04-11 14:46 | Hospitalist Progress Note ---
Date of Service April 11, 2022 Assessment & Plan (1) Chest pain: Plan: resolved, no further workup per cardiology. (2) Chronic abdominal pain: Plan: Reports severe sharp abdominal pain in her lower abdomen that is worse with food. No stool changes recently. Most recently is depending on dicyclomine and hydrocodone for relief, but there is still a decreased QOL from poorly managed pain. She is now having weight loss. Requesting to be seen by [facility] for second opinion after [facility] teams have been unsuccessful at locating an etiology. (3) Hypothyroidism: Plan: chronic, stable. TSH is within normal limits. (4) Rheumatoid arthritis: Plan: chronic, stable. [facility] Arcelia Viramontes [facility] and Anticipated Discharge Date Admission Date: April 10, 2022 Subjective 81 yo F presents with atypical chest pain symptoms. She has had a normal HS troponin serially overnight and no further symptoms. 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 She reports chronic lower abdominal pain that is severe and very much decreasing her QOL. She reports losing weight now in the last couple of months because every time she eats she has pain. Dicyclomine has helped and she is on hydrocodone She has been trying to get a second opinion from [facility] but has been unable to see them and is requesting to be seen as her pain is severe. Reported pain s/p laparoscopic R hemicolectomy on 11/28/21 for a large cecal polyp (path was TA) Pain has been ongoing for several years, including preoperatively Abdominal pain again began and became severe approximately one month post-op She actually mentioned to the surgeon going into the surgery that she was having pain that day, also Normal BMs but because of pain with eating, she reports now having some weight loss. CT scan by GI outpatient was unrevealing. 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 which was not noted on the December 23 CT (wo IV, w/PO contrast) but was seen on CT Jul 24 EGD December 2018: s/p Massimo fundoplication with wrap intact, gastritis, no esophageal abnormality to explain dysphagia, scar in gastric body with retained endoscopic clips CSP Sept 2020:hemorrhoids on perianal exam, 15mm polyp on IC valve, not resected, 3 cecal polyps (resected), 5 polyps transverse colon (resected), a 10mm polyp in transverse colon (resected, clipped), 4 polyps in descending colon (removed), nonbleeding colonic AVMs clipped x 2 Review of Systems Review of Systems: All systems were reviewed and negative except as indicated on subjective above. Physical Exam Physical Exam: CONSTITUTIONAL: WNWD, vitals as above, generally mild distress 2/2 abdominal pain EYES: normal conjunctivae, no scleral icterus ENT: external ear and nose normal, MMM NECK: trachea midline, no lymphadenopathy, normal thyroid RESPIRATORY: clear to auscultation bilaterally, no crackles, rales or wheezes, normal respiratory effort CARDIOVASCULAR: regular rate and rhythm, S1 and 2 heard without murmurs, gallops or rubs, no JVD, no peripheral edema, no carotid bruits CHEST: +pacemaker in upper left chest GASTROINTESTINAL: normal bowel sounds, soft, nontender, no guarding MUSCULOSKELETAL: strength 5/5 throughout, head is normocephalic and atraumatic SKIN: warm and dry, no rashes NEUROLOGIC: CN 2-12 grossly intact, no sensory deficit, normal cognition, normal speech, no tremor PSYCHIATRIC: alert cooperative and oriented to person, place and time. Results & Data Results & Data ([facility]) Vital Signs (Past 12 Hours) Vital Signs Temp Pulse Pulse Resp BP Pulse Ox O2 Del Method 04/11/22 11:00 36.5 C 83 16 108/60 97 04/11/22 08:00 60 04/11/22 08:00 36.9 C 70 18 118/61 95 04/11/22 03:45 36.6 C 60 18 112/70 94 Room Air Laboratory Results Short CBC 04/11/22 Range/Units 05:37 WBC 5.62 (4.8-10.8) K/ul Hgb 12.0 (12.0-16.0) g/dl Hct 35.8 (34.1-44.9) % Plt Count 195 (130-400) K/uL BMP 04/11/22 05:37 Sodium 140 Potassium 4.0 Chloride 106 Carbon Dioxide 30 BUN 25 H Creatinine 0.77 Glucose 88 Calcium 9.4 Medications Administered Current Inpatient Medications Acetaminophen (Acetaminophen 325 Mg Tab) 650 mg PO Q4H PRN PRN Reason: Pain or Fever Stop: 05/10/22 16:13 Last Admin: 04/10/22 19:21 Dose: 650 mg Hydrocodone Bitart/Acetaminophen (Hydrocodone/Acetaminophen 10/325 Tab) 1 tab PO Q6H PRN PRN Reason: Pain Stop: 04/24/22 18:22 Last Admin: 04/11/22 11:33 Dose: 1 tab Al Hydrox/Mg Hydrox/Simethicone (Aluminum/Magnesium Susp 30 Ml Udc) 15 ml PO Q4H PRN PRN Reason: Dyspepsia Stop: 05/10/22 16:13 Last Admin: 04/11/22 04:57 Dose: 15 ml Aspirin (Aspirin 81 Mg Ectab) 81 mg PO QAM MIKEY Stop: 05/11/22 08:59 Last Admin: 04/11/22 08:40 Dose: 81 mg Cyanocobalamin (Cyanocobalamin (B-12) 500 Mcg Tablet) 500 mcg PO QDD [facility] Stop: 05/11/22 16:29 Dicyclomine HCl (Dicyclomine Hcl 10 Mg Cap) 10 mg PO TID MIKEY Stop: 05/11/22 20:59 Escitalopram Oxalate (Escitalopram Oxalate 10 Mg Tab) 10 mg PO DAILY MIKEY Stop: 05/11/22 08:59 Last Admin: 04/11/22 08:40 Dose: 10 mg Heparin Sodium (Porcine) (Heparin Sod 5,000 Unit/0.5 Ml Vial) 5,000 units SQ Q12 MIKEY Stop: 05/10/22 20:59 Last Admin: 04/11/22 08:41 Dose: 5,000 units Hydrochlorothiazide (Hydrochlorothiazide 25 Mg Tab) 12.5 mg PO DAILY MIKEY Stop: 05/11/22 08:59 Last Admin: 04/11/22 08:40 Dose: 12.5 mg Hydroxyzine HCl (Hydroxyzine Hcl 25 Mg Tab) 25 mg PO BID PRN PRN Reason: Itching Stop: 05/10/22 18:22 Levothyroxine Sodium (Levothyroxine Sodium 50 Mcg Tablet) 50 mcg PO Q2D MIKEY Stop: 05/11/22 18:29 Levothyroxine Sodium (Levothyroxine Sodium 75 Mcg Tablet) 75 mcg PO Q2D MIKEY Stop: 05/12/22 18:29 Lorazepam (Lorazepam 0.5 Mg Tab) 0.5 mg PO Q6H PRN PRN Reason: Anxiety Stop: 05/10/22 18:22 Losartan Potassium (Losartan Potassium 50 Mg Tab) 100 mg PO DAILY MIKEY Stop: 05/11/22 08:59 Last Admin: 04/11/22 08:40 Dose: 100 mg Meclizine HCl (Meclizine Hcl 25 Mg Tab) 25 mg PO TID PRN PRN Reason: Dizziness Stop: 05/10/22 18:22 Miscellaneous (Armodafinil [Nuvigil] 250 Mg Tablet Order Awaiting Action) 1 each N/A QS MIKEY Stop: 05/11/22 00:00 Last Admin: 04/11/22 09:10 Dose: Not Given Multivitamins/Minerals (Cerovite Adv Formula Tab) 1 tab PO BID MIKEY Stop: 05/10/22 20:59 Last Admin: 04/11/22 08:40 Dose: 1 tab Nitroglycerin (Nitroglycerin Sl 0.4 Mg/Tab Tab) 0.4 mg SL UD PRN PRN Reason: Chest Pain Stop: 05/10/22 16:13 Last Admin: 04/10/22 20:46 Dose: 0.4 mg Pantoprazole Sodium (Pantoprazole 40 Mg Tab) 40 mg PO BID MIKEY Stop: 05/10/22 20:59 Last Admin: 04/11/22 08:40 Dose: 40 mg Polyethylene Glycol (Polyethylene (Miralax) 17 Gm Pack) 17 gm PO DAILY PRN PRN Reason: Constipation Stop: 05/10/22 16:13 Polyethylene Glycol (Polyethylene (Miralax) 17 Gm Pack) 17 gm PO DAILY PRN PRN Reason: Constipation Stop: 05/10/22 18:22 Tizanidine HCl (Tizanidine Hcl 4 Mg Tablet) 4 mg PO HS PRN PRN Reason: Muscle Spasm Stop: 05/10/22 18:22 Tramadol HCl (Tramadol Hcl 50 Mg Tablet) 25 - 50 mg PO Q4H PRN PRN Reason: Pain Stop: 05/10/22 20:49 Vitamin D (Cholecalciferol 1,000 Units 25 Mcg Tab) 1,000 units PO DAILY MIKEY Stop: 05/11/22 08:59 Last Admin: 04/11/22 08:41 Dose: 1,000 units (1) Rheumatoid arthritis Rheumatoid arthritis location: unspecified site Rheumatoid factor presence: unspecified presence Qualified Code(s): M06.9 - Rheumatoid arthritis, unspecified (2) Chest pain Chest pain type: precordial pain Qualified Code(s): R07.2 - Precordial pain
[2022-04-11] MEDS ORDERED: CYANOCOBALAMIN (B-12) 500 MCG TABLET PO SCH (16:30)
[2022-04-11] MEDS ORDERED: LEVOTHYROXINE SODIUM 50 MCG TABLET PO SCH (18:30)
[2022-04-11] MEDS: DICYCLOMINE HCL 10 MG CAP PO SCH (21:06)
[2022-04-12] MEDS: PANTOprazole 40 MG TAB PO SCH (07:53)
[2022-04-12] MEDS: HYDROcodone/ACETAMINOPHEN 10/325 TAB PO PRN (07:53)
[2022-04-12] MEDS: ASPIRIN 81 MG ECTAB PO SCH (07:54)
[2022-04-12] MEDS: hydroCHLOROthiazide 25 MG TAB PO SCH (07:54)
[2022-04-12] MEDS: ESCITALOPRAM OXALATE 10 MG TAB PO SCH (07:54)
[2022-04-12] MEDS: LOSARTAN POTASSIUM 50 MG TAB PO SCH (07:55)
[2022-04-12] MEDS: HEPARIN SOD 5,000 UNIT/0.5 ML VIAL SQ SCH (07:55)
[2022-04-12] MEDS: CHOLECALCIFEROL 1,000 UNITS 25 MCG TAB PO SCH (07:55)
[2022-04-12] MEDS: CEROVITE ADV FORMULA TAB PO SCH (07:56)
[2022-04-12] MEDS: DICYCLOMINE HCL 10 MG CAP PO SCH (09:40)
--- NOTE | 2022-04-12 09:44 | Gastrointestinal Consultation ---
Date of Consultation April 12, 2022 Assessment & Plan (1) Chronic abdominal pain: Discussed with Dr. Ochoa who advised on plan. - continue with miralax but will increase dose to 17gm bid. I suspect that constipation is playing some role in her symptoms as symptoms can be better with moving bowels. - continue protonix 40mg bid for history of heartburn. - continue bentyl 10mg TID prn abdominal pain since this is also helpful, but would caution to watch for worsening constipation with this. - can follow up as an outpatient. symptoms have been ongoing for years. CT from 02/2022 without concerning findings for infectious/inflammatory causes of symptoms. There may be a possible component of arthritic pain causing some symptoms given the changes in spine/hips seen on CT 02/2022. Supervising Physician Co-Signing Physician Notes Agree with KELLEY Wall as above Abd: Soft, Tender mid-epigastric, slightly distended, +BS Continue current therapy and supportive care Consider Defecography and Balloon expulsion testing for dyssynergic defecation as outpatient History of Present Illness Reason for Consultation: lower abdominal pain Requesting Physician: Arcelia Viramontes DO Attending Physician: Arcelia Viramontes DO History of Present Illness Patient is a 81 year old female with a pmhx of OA of hip who presented to the ED 04/10/22 with complaints of fatigue and chest heaviness for the past week. GI was asked to see the patient for history of lower abdominal pain that patient admits has been going on for years. she tells me that this does seem to come on after she eats. associated with nausea. pain rated 5/10 and feels like a pressure. admits to bloating. She admits she has had constipation for years and has had issues despite miralax use. she does admit pain does improve somewhat after moving bowels. She had a colonoscopy last year at [facility], but I do not have records at this time. she tells me she did have polyps removed but had one that needed to be surgically removed and she tells me that in 11/2021 she had laparoscopic resection of about a foot of colon. she does feel pain has been a little worse since that time. she does admit that bentyl and hydrocodone does help pain. history of heartburn as outpatient. admits that protonix and gaviscon do help control symptoms. she did have CT in 02/2022 that was unremarkable for inflammatory / infectious findings. Of note, there was arthritic changes in spine and hip. Patient denies any current issues with vomiting, dysphagia, abdominal pain, unintentional weight loss, change in bowels, melena, or bright red blood per rectum. egd - 11/2020 gastritis. path: reactive gastropathy. h pylori negative. Allergies Allergy/AdvReac Type Severity Reaction Status Date / Time bee venom protein (honey bee) Allergy Intermediate "SWELLED Verified 04/10/22 18:00 ALL UP" Iodinated Contrast Media Allergy Intermediate PASSED Verified 04/10/22 18:00 OUT-BODY FELT COLD ALL OVER venlafaxine Allergy Unknown Unknown Verified 04/10/22 18:00 gabapentin AdvReac Intermediate HORRIBLE Verified 02/11/22 15:42 HEADACHES rosuvastatin [From Crestor] AdvReac Intermediate PAIN IN Verified 04/10/22 18:00 JOINTS atorvastatin AdvReac Mild PAIN IN Verified 04/10/22 18:00 JOINTS shellfish derived AdvReac Mild Headache Verified 04/10/22 18:00 Home Medications Medication Instructions Recorded Confirmed Type armodafinil 250 mg tablet (Nuvigil) 250 mg PO QAM 07/15/18 04/10/22 History polyethylene glycol 3350 17 gram 17 g PO DAILY PRN Constipation 07/15/18 04/10/22 History oral powder packet (Miralax) multivit with 1 tab PO QAM 10/20/18 04/10/22 History diatqwnm-auhz-XL-lutein 8 mg iron-400 mcg-300 mcg tablet (Centrum Silver Women) calcium 650 mg-vitamin D3 12.5 2 tab PO DAILY 03/05/19 04/10/22 History mcg-vitamin K 40 mcg chewable tablet (Viactiv) cholecalciferol (vitamin D3) 25 1,000 unit PO DAILY 11/02/20 04/10/22 History mcg (1,000 unit) tablet (Vitamin D3) cyanocobalamin (vitamin B-12) 500 500 mcg PO QDD 11/02/20 04/10/22 History mcg lozenges (Vitamin B-12) levothyroxine 75 mcg tablet 75 mcg PO Q2D 11/02/20 04/10/22 History losartan 100 mg tablet 100 mg PO DAILY 11/02/20 04/10/22 History vitamins A,C,B-noud-gtmkug 14,320 1 cap PO BID 11/02/20 04/10/22 History unit-226 mg-200 unit capsule (PreserVision AREDS) acetaminophen 325 mg tablet 650 mg PO Q6H PRN fever or pain 11/03/20 04/10/22 Rx #100 tabs escitalopram oxalate 10 mg tablet 10 mg PO DAILY 01/30/21 04/10/22 History (Lexapro) hydrocodone 10 mg-acetaminophen 1 tab PO Q6H PRN Pain 01/30/21 04/10/22 History 325 mg tablet hydroxyzine HCl 25 mg tablet 25 mg PO BID PRN Itching 01/30/21 04/10/22 History levothyroxine 50 mcg tablet 50 mcg PO Q2D 01/30/21 04/10/22 History lorazepam 0.5 mg tablet 0.5 mg PO Q6H PRN Anxiety 01/30/21 04/10/22 History meclizine 25 mg tablet 25 mg PO TID PRN Dizziness 01/30/21 04/10/22 History pantoprazole 40 mg tablet,delayed 40 mg PO BID 01/30/21 04/10/22 History release sucralfate 1 gram tablet 1 g PO TIDM PRN Nausea 01/30/21 04/10/22 History tizanidine 4 mg capsule 4 mg PO HS PRN Muscle Spasm 01/30/21 04/10/22 History hydrochlorothiazide 12.5 mg capsule 12.5 mg PO DAILY 08/23/21 04/10/22 History fentanyl 25 mcg/hr transdermal 25 mcg transdermal Q72H 04/10/22 04/10/22 History patch zinc 50 mg tablet 50 mg PO DAILY 04/10/22 04/10/22 History dicyclomine 10 mg capsule 10 mg PO TID PRN Abdominal Pain 04/11/22 04/11/22 History adalimumab 40 mg/0.8 mL 40 mg subcut Q7D 04/12/22 04/12/22 History subcutaneous syringe kit (Humira) Patient History Medical History (Updated 04/11/22 @ 17:48 by Arcelia Viramontes DO) Age related osteoporosis Age related osteoporosis Chest pain Dyslipidemia Fibromyalgia GERD (gastroesophageal reflux disease) History of concussion MAY 2018 - 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 GETS HEADACHES FROM History of skin cancer Hx of sleep apnea COULDN'T TOLERATE CPAP/REPEAT TESTING SHOWED "DIDN'T NEED" CPAP Hypertension Hypothyroidism Nutcracker esophagus ARTHUR (obstructive sleep apnea) Osteoarthritis PAF (paroxysmal atrial fibrillation) Pancreatic insufficiency Rheumatoid arthritis Scoliosis Urge incontinence of urine Urinary incontinence Surgical History History of appendectomy History of bilateral cataract extraction History of bladder suspension procedure History of cardiac cath 4 YRS AGO..CHEST PAIN...ALTOONA - NO FINDINGS...HIATAL HERNIA DX History of colonoscopy History of endoscopy DILATION OF ESOPHAGUS History of eye surgery LASER History of laparoscopic cholecystectomy History of left knee replacement History of lumbar fusion History of partial colectomy History of partial hysterectomy History of rectocele REPAIR WITH MESH AND MESH SINCE REMOVED History of repair of hiatal hernia History of repair of right rotator cuff History of right knee surgery BRUSA SAC REMOVED History of total left knee replacement History of urologic surgery BLADDER TAC S/P lumbar fusion S/P repair of paraesophageal hernia Family History Sister Colorectal cancer Hypertension Mother Stroke Hypertension Other No pertinent family history Social History Smoking Status: Never smoker Hx Alcohol Use: No Hx Substance Use: No Preferred Language: [place] Communication Ability: Effective 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 Beliefs That Will Affect Care: None marital status: Current Living Situation: Spouse Other Information That Helps Us Care for You: No Feels Safe at Home: Yes and No Is there a partner from a previous relationship who is making you feel unsafe now?: No Any Concerns about Your Family Situation: No Would You Like to Speak to Someone About Your Situation: No Safety Concerns: Feels Safe At This Time Assistive Devices: Cane and Walker Review of Systems Review of Systems: All systems reviewed & are unremarkable except as noted in HPI & below Physical Exam Constitutional: WD/WN, vitals as above Eyes: + anicteric sclerae and PERRL Respiratory: normal respiratory effort, lungs clear to auscultation Cardiovascular: RRR, no murmur, no edema Gastrointestinal (Abdomen): normal bowel sounds, mild lower abdominal tenderness, no guarding, soft. Skin: no rashes, warm and dry Psychiatric: Orientation: alert and oriented x 3 Affect: euthymic affect Results & Data ([facility]) Vital Signs (Past 12 Hours) Vital Signs Temp Pulse Pulse Resp BP Pulse Ox O2 Del Method 04/12/22 03:25 36.9 C 60 16 118/68 92 Room Air 04/11/22 23:37 36.9 C 59 L 16 118/67 97 Room Air 04/11/22 23:[address] SCAN OF THE ABDOMEN AND PELVIS WITHOUT IV CONTRAST 02/11/22 CLINICAL HISTORY: Generalized abdominal pain. COMPARISON STUDY: Abdominal CT dated 01/30/2021. TECHNIQUE: CT scan of the abdomen and pelvis is performed from the lung bases to the proximal femora. Images are reviewed in the axial, sagittal, and coronal planes. IV contrast was not administered for this examination. Oral contrast was utilized. A dose lowering technique was utilized adhering to the principles of ALARA. CT DOSE: 224.93 mGy.cm FINDINGS: Lung bases: The patient is status post midline sternotomy. The heart is enlarged and without pericardial effusion. Pacemaker leads are noted. There is trace left pleural effusion with bibasilar scarring/atelectasis. Liver: The unenhanced liver is normal in size, contour, and attenuation. There is no intrahepatic biliary ductal dilatation. Gallbladder: Surgically absent noting clips in the gallbladder fossa. Spleen: Normal in size and attenuation. Pancreas: The unenhanced pancreas is atrophic and grossly unremarkable. Adrenal glands: Unremarkable. Kidneys: The unenhanced kidneys are atrophic and without hydronephrosis. There are no renal calculi identified. There is no evidence of contour deforming renal mass lesion. Abdominal vasculature: The abdominal aorta is normal in course and caliber noting moderate atherosclerotic calcification. Stomach and bowel: There is a small to moderate hiatal hernia. Clips are noted in the stomach. There is moderate to advanced colonic diverticulosis without CT evidence of acute diverticulitis. No bowel obstruction is seen. Enteric contrast reaches the rectum. A duodenal diverticulum is incidentally noted. The appendix is not identified and reported surgically absent. Peritoneum: There is no intraperitoneal free air or abdominal ascites. Lymphadenopathy: None. Pelvic viscera: The bladder is normal as visualized. The uterus is surgically absent. No adnexal lesion is seen. Skeletal structures: The skeletal structures are osteopenic. There is advanced lumbosacral spondylosis and scoliosis with evidence of laminectomy and posterior fusion at L5-S1. No lytic or blastic lesions are seen. A neurostimulator device is present in the left gluteal soft tissues. Leads enter the central spinal canal in the lower thoracic region. There are chronic right pubic ring fractures. Advanced arthritic change is noted in the right hip. There are also healed bilateral rib fractures. IMPRESSION: 1. No acute infectious or inflammatory findings are identified in the abdomen or pelvis. 2. Cardiomegaly and trace left pleural effusion. 3. Colonic diverticulosis without CT evidence of acute diverticulitis. 4. Additional findings as above. PG Care Time/CCT Total # of Minutes Spent Total Time Spent with Patient: Total time spent is greater than 50% in coordination of care (as documented) at patient's floor/unit and/or counseling patient: Coding Level of Care Code 93380 Initial Inpt Care Lvl 3 Diagnoses Chronic abdominal pain R10.9; G89.29
[2022-04-12] MEDS ORDERED: POLYETHYLENE (MIRALAX) 17 GM PACK PO SCH (10:00)
--- NOTE | 2022-04-12 14:19 | Discharge Summary ---
Discharge Summary Date of Service April 12, 2022 Notes For Next Care Provider -she will need to followup with her outpatient financial aid administrator for pocket revision -reported fatigue also may be suggestive of untreated ARTHUR, consider polysomnogram -discussed low FODMAPs diet with patient and gave list of foods to avoid to help with chronic abdominal pain -seen by [facility] while admitted who recommended to continue Miralax but with increased dose to 17gm PO BID, as he suspects that constipation is playing a role with symptoms. -Cont Protonix 40mg PO BID -Cont Bentyl 10mg PO TID PRN abdominal pain since this is helpful for her but would cautiously watch for worsening constipation with this. -consider Defecography and Balloon expulsion testing for dyssynergic defecation as outpatient which can be performed at a tertiary care center. Medication Changes From Visit Increased Miralax to 17gm PO BID Admission HPI Per Admitting Provider 81-year-old lady with PMH of paroxysmal A. fib, status cardiac pacemaker, chronic diastolic heart failure, GERD, nutcracker esophagus, urgency incontinence of urine, CKD stage IIIa, paraesophageal hernia, chronic migraine, iron deficiency anemia, rheumatoid arthritis, BCC of skin presented to our ED 04/10 with complaint of being tired/exhausted/intermittent chest heaviness or pain since last 5 to 6 days after undergoing pulmonary function test. Patient reports having " mild quick pain" in the left chest radiating to the back, lasting few seconds, having such episodes up to 5 times a day, has not been able to relate it with any activities. Patient also reports dizziness since about the same time. Patient denies any cough or palpitation, does report burning in her lower chest which is relieved with antacid and has been going on for a while and this chest pain sensation at presentation is new in the last week. Patient also reports having belly pain on and off after GI polyp resection in November of this year. Patient denies any pain or burning with passing urine, patient reports being at her baseline with regard to her bowel movements. Patient denies smoking/use of alcohol/use of recreational drugs or marijuana. Patient is full code. 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 Patient denies any personal history of blood clot but does have multiple recurrences of basal cell carcinoma which she is closely following up with dermatology as an outpatient. Patient does report having 2 sisters with colon cancer, all family with heart problems, mom had heart problems started in her 50s and of heart problem at 65, father had some heart problem and from heart problem at 57. Patient not able to go into specifics of kind of heart problems. Principal Dx & Hospital Course #1 = Principal Diagnosis (1) Chest pain: (2) Chronic abdominal pain: (3) Rheumatoid arthritis: Plan 81-year-old female presented to the emergency department due to chest heaviness and dyspnea after completing PFTs. Outpatient high-sensitivity troponin minimally elevated at 21 on 04/09. Patient was referred to the ED. Initial heaviness resolved shortly after admission, but pacemaker site pain was reproducible to palpation. She noted fatigue and doesn't wear her CPAP due to "air being pushed into her abdomen." HS troponin was negative x 4 serial checks. Chest x-ray revealed cardiomegaly and cardiac pacemaker without radiographic evidence of CHF, no airspace consolidation or large pleural effusions identified. EKG revealed an atrial-paced rhythm, 60 bpm. Outpatient PFTs: not consistent with COPD or Asthma per pulmonary Echo 04/11: LVEF 55 to 60% with no wall motion abnormalities, grade 1 diastolic dysfunction. Mild MR and TR. From a cardiac standpoint, there was no further workup given she had a negative nuclear stress test in November 2021. Her abdominal pain kept her here an additional night, however, and she was seen by [facility]. It was strongly recommended that she get to a tertiary care center to pursue defecography and Balloon expulsion testing for dyssynergic defecation. Also, Bentyl, Miralax and Protonix were recommended and a change in her diet. She was counseled on a low FODMAPs diet and was discharged in stable condition with close primary care followup recommended. Discharge Exam CONSTITUTIONAL: WNWD, vitals as above, generally mild distress EYES: normal conjunctivae, no scleral icterus ENT: external ear and nose normal, MMM NECK: trachea midline, no lymphadenopathy, normal thyroid RESPIRATORY: clear to auscultation bilaterally, no crackles, rales or wheezes, normal respiratory effort CARDIOVASCULAR: regular rate and rhythm, S1 and 2 heard without murmurs, gallops or rubs, no JVD, no peripheral edema, no carotid bruits CHEST: +pacemaker in upper left chest GASTROINTESTINAL: normal bowel sounds, soft, nontender, no guarding MUSCULOSKELETAL: strength 5/5 throughout, head is normocephalic and atraumatic SKIN: warm and dry, no rashes NEUROLOGIC: CN 2-12 grossly intact, no sensory deficit, normal cognition, normal speech, no tremor PSYCHIATRIC: alert cooperative and oriented to person, place and time. Updated Medication List Medication Instructions Recorded Confirmed Type armodafinil 250 mg tablet (Nuvigil) 250 mg PO QAM 07/15/18 04/10/22 History multivit with 1 tab PO QAM 10/20/18 04/10/22 History oedvshfp-acsl-ZD-lutein 8 mg iron-400 mcg-300 mcg tablet (Centrum Silver Women) calcium 650 mg-vitamin D3 12.5 2 tab PO DAILY 03/05/19 04/10/22 History mcg-vitamin K 40 mcg chewable tablet (Viactiv) cholecalciferol (vitamin D3) 25 1,000 unit PO DAILY 11/02/20 04/10/22 History mcg (1,000 unit) tablet (Vitamin D3) cyanocobalamin (vitamin B-12) 500 500 mcg PO QDD 11/02/20 04/10/22 History mcg lozenges (Vitamin B-12) levothyroxine 75 mcg tablet 75 mcg PO Q2D 11/02/20 04/10/22 History losartan 100 mg tablet 100 mg PO DAILY 11/02/20 04/10/22 History vitamins A,C,S-xhqt-gwwffz 14,320 1 cap PO BID 11/02/20 04/10/22 History unit-226 mg-200 unit capsule (PreserVision AREDS) acetaminophen 325 mg tablet 650 mg PO Q6H PRN fever or pain 11/03/20 04/10/22 Rx #100 tabs escitalopram oxalate 10 mg tablet 10 mg PO DAILY 01/30/21 04/10/22 History (Lexapro) hydrocodone 10 mg-acetaminophen 1 tab PO Q6H PRN Pain 01/30/21 04/10/22 History 325 mg tablet hydroxyzine HCl 25 mg tablet 25 mg PO BID PRN Itching 01/30/21 04/10/22 History levothyroxine 50 mcg tablet 50 mcg PO Q2D 01/30/21 04/10/22 History lorazepam 0.5 mg tablet 0.5 mg PO Q6H PRN Anxiety 01/30/21 04/10/22 History meclizine 25 mg tablet 25 mg PO TID PRN Dizziness 01/30/21 04/10/22 History pantoprazole 40 mg tablet,delayed 40 mg PO BID 01/30/21 04/10/22 History release sucralfate 1 gram tablet 1 g PO TIDM PRN Nausea 01/30/21 04/10/22 History tizanidine 4 mg capsule 4 mg PO HS PRN Muscle Spasm 01/30/21 04/10/22 History hydrochlorothiazide 12.5 mg capsule 12.5 mg PO DAILY 08/23/21 04/10/22 History fentanyl 25 mcg/hr transdermal 25 mcg transdermal Q72H 04/10/22 04/10/22 History patch zinc 50 mg tablet 50 mg PO DAILY 04/10/22 04/10/22 History dicyclomine 10 mg capsule 10 mg PO TID PRN Abdominal Pain 04/11/22 04/11/22 History adalimumab 40 mg/0.8 mL 40 mg subcut Q7D 04/12/22 04/12/22 History subcutaneous syringe kit (Humira) polyethylene glycol 3350 17 gram 17 g PO BID #30 ea 04/12/22 04/10/22 Rx oral powder packet (Miralax) Hospital Stay Data Consultations 04/10/22 15:16 ED Decision to Admit Stat 04/10/22 16:14 Consult Cardiology Routine 04/11/22 14:45 Consult Gastroenterology Routine Pending Results Patient Have Any Pending Studies at Discharge: No Discharge Instructions Given to Patient (Per Discharging Provider) Please take all medications as instructed on discharge list below. Per Dr. Ochoa, please continue with Miralax 17gm twice daily until you are moving your bowels consistently. Please continue with protonix 40mg twice daily for history of heartburn Please continue Bentyl 10mg three times daily as needed for abdominal pain but watch for constipation on this (narcotics also contribute to constipation) Please followup [facility] Dr. Ochoa as an outpatient. Please follow the "low FODMAPs" diet as recommended. Consider outpatient sleep study for fatigue. Continue with your scheduled follow-up [facility] Dr. Bain later this month. It was a pleasure taking care of you! Please call if you have any questions or problems. You can reach a [facility] hospitalist on duty at [facility] 24 hours a day by calling [phone]. Take care of yourself. DO Jennifer Trimble Hospitalist Total Time Total Time Spent Total Time Spent (In Minutes): 60
[2022-04-12] MEDS ORDERED: LEVOTHYROXINE SODIUM 75 MCG TABLET PO SCH (18:30)
== END 2022-04-12 15:51 | disposition home or self-care (01) | DRG 313 ==
LOC: ED 11:44 → 2S 16:05 → SUATTDRO 16:05 → 2S 18:31

== ENCOUNTER 2022-10-21 18:06 | Inpatient (IN) ==
[2022-10-21] MEDS ORDERED: ACETAMINOPHEN 1,000 MG/100 ML VIAL IV STA (18:48)
[2022-10-21] MEDS ORDERED: ONDANSETRON INJ 2 MG/ML 2 ML VIAL IV STA ×2 (18:48→20:07)
[2022-10-21] MEDS ORDERED: MoRPHine SULFATE 2 MG/ML CARP IV STA (18:48)
[2022-10-21] MEDS ORDERED: MoRPHine SULFATE 2 MG/ML CARP IV PRN (18:48)
--- NOTE | 2022-10-21 18:52 | Emergency Department Note ---
Impression & Plan Precordial chest pain, Diffuse abdominal pain, Vomiting, COVID-19, Elevated troponin ED Provider Note NAME: INO ANDERSON AGE: 81 SEX: F : 1940 ARRIVES VIA: Walk-In INFORMANT: [Patient][family] ED PROVIDER(S): [Alexi Gillespie MD] CHIEF COMPLAINT: Chest pain, abdominal pain HISTORY OF PRESENT ILLNESS: The patient is a 81-year-old female who has not felt well for 3 weeks. She has had a headache, some left flank and back pain, some vomiting, some cough and some shortness of breath. Patient has also had lower bilateral chest pain. No fever. She went to [facility] today and there, developed right sided flank and abdominal pain. She began vomiting. She was brought to the hospital for evaluation, she was referred from [facility]. Patient admits that in addition to the vomiting, she has had diarrhea. No blood in the vomit or diarrhea. PMHx/PSHx: See Below SOCIAL HISTORY: See Below. PHYSICAL EXAM: GENERAL: Patient is in mild distress from pain, vomit bag at the bedside HEENT: No acute trauma, normocephalic atraumatic, mucous membranes moist, no nasal congestion. NECK: No stridor, no adenopathy, no meningismus, trachea is midline. LUNGS: Scattered crackles heard bilaterally, no wheezing or respiratory distress. HEART: Without murmurs gallops or rubs, regular rate and rhythm. ABDOMEN: Soft, moderately diffusely tender. Some mild abdominal distention is noted. EXTREMITIES: No cyanosis or edema, full range of motion of all the joints without pain or difficulty, no signs for acute trauma. NEUROLOGIC: Oriented x 3, no acute motor or sensory deficits, no focal weakness. SKIN: No rash, no jaundice, no diaphoresis. DIFFERENTIAL DIAGNOSIS: Bowel obstruction, renal colic, pneumonia, CHF, dehydration, cardiac ischemia, MA, renal or liver failure, UTI, viral illness, among others. EMERGENCY DEPARTMENT COURSE/PROCEDURES: Prior/Outside records reviewed: [employer] documentation. ECG per my interpretation: Indication was chest pain. The ECG shows a normal sinus rhythm with a rate of 63. There is no ST elevation, no PVCs. The QTc is 413. Repeat ECG per my interpretation: Indication was chest pain. The ECG shows an atrial pacemaker with a rate of 60. There is no ST elevation, no PVCs. QTc is 442. Compared to the ECG from earlier today, the pacemaker is now functioning. Continuous Cardiac Monitoring per my interpretation: An order was placed for continuous cardiac monitoring. The monitor shows a rate of 71 with normal sinus rhythm. Critical Care Note: I have personally spent 48 minutes of critical care time in the direct management of this patient. This includes bedside care, inte rpretation of diagnostic studies, and testing, discussion with consultants, patient, and family members, and other required patient management activities. This 48 minutes is in excess of all separately billable procedures. MEDICAL DECISION MAKING: There is no leukocytosis or concerning anemia. There is a normal platelet count. No coagulopathy. No renal failure or significant electrolyte abnormality. No concerning liver enzyme elevation. BNP was not elevated making CHF less likely. There was no pancreatitis. ECG showed a normal sinus rhythm, a second ECG showed an atrial pacemaker. There was no acute ischemia. Cardiac enzyme testing x2 is elevated however, there was no increase to suggest MA. The mild troponin evaluation may just be from mismatch. Urinalysis does not show infection. COVID test returned positive, influenza and RSV test returned negative. Chest x-ray per my review shows some parenchymal congestion but no focal pneumonia. There was no pneumothorax. The chest film could be consistent with a viral process. Abdominal and pelvis CT did not show any bowel obstruction or acute surgical pathology. On exam, patient appeared unc omfortable, she was dry heaving and there was some vomiting. The patient was aggressively managed. She received IV Zofran, a second dose of IV Zofran was given. She was given nitroglycerin paste, IV morphine, IV Tylenol. The patient feels markedly improved with the above treatment. She is much more comfortable. She is no longer vomiting. She does not look distressed. It appears the patient's presentation is secondary to COVID-19. She is in no condition to go home given her presentation. She requires further care here in the hospital, she will need further hydration. I spoke with the patient and case management, the on-call hospitalist was consulted. DISPOSITION: Patient's presentation and findings warrant a hospital stay. 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 Basal cell carcinoma Chest pain DVT prophylaxis Dyslipidemia Fibromyalgia GERD (gastroesophageal reflux disease) History of concussion MAY 2018 - 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 GETS HEADACHES FROM History of skin cancer HTN (hypertension) Hx of sleep apnea COULDN'T TOLERATE CPAP/REPEAT TESTING SHOWED "DIDN'T NEED" CPAP Hypertension Hypothyroidism JUDI (iron deficiency anemia) Nutcracker esophagus ARTHUR (obstructive sleep apnea) Osteoarthritis Pacemaker PAF (paroxysmal atrial fibrillation) Pancreatic insufficiency Paroxysmal atrial fibrillation Rheumatoid arthritis Scoliosis Shortness of breath Tachy-sheryl syndrome Tachy-sheryl syndrome Urge incontinence of urine Urinary incontinence Surgical History History of appendectomy History of bilateral cataract extraction History of bladder suspension procedure History of cardiac cath 4 YRS AGO..CHEST PAIN...ALTOONA - NO FINDINGS...HIATAL HERNIA DX History of colonoscopy History of endoscopy DILATION OF ESOPHAGUS History of eye surgery LASER History of laparoscopic cholecystectomy History of left knee replacement History of lumbar fusion History of partial colectomy History of partial hysterectomy History of rectocele REPAIR WITH MESH AND MESH SINCE REMOVED History of repair of hiatal hernia History of repair of right rotator cuff History of right knee surgery BRUSA SAC REMOVED History of total left knee replacement History of urologic surgery BLADDER TAC S/P lumbar fusion S/P repair of paraesophageal hernia Family History Sister Colorectal cancer Hypertension Mother Stroke Hypertension Other No pertinent family history Social History Smoking Status: Never smoker Hx Alcohol Use: No Hx Substance Use: No Preferred Language: Macedonian Communication Ability: Effective Textile 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 Required: No Beliefs That Will Affect Care: None marital status: Current Living Situation: Spouse Feels Safe at Home: Yes Assistive Devices: Cane and Walker Allergies Allergies Allergy/AdvReac Type Severity Reaction Status Date / Time bee venom protein (honey bee) Allergy Intermediate "SWELLED Verified 10/21/22 22:33 ALL UP" Iodinated Contrast Media Allergy Intermediate PASSED Verified 10/21/22 22:33 OUT-BODY FELT COLD ALL OVER venlafaxine Allergy Unknown Unknown Verified 10/21/22 22:33 gabapentin AdvReac Intermediate HORRIBLE Verified 10/21/22 22:33 HEADACHES rosuvastatin [From Crestor] AdvReac Intermediate PAIN IN Verified 10/21/22 22:33 JOINTS atorvastatin AdvReac Mild PAIN IN Verified 10/21/22 22:33 JOINTS shellfish derived AdvReac Mild Headache Verified 10/21/22 22:33 Home Meds Home Medications Medication Instructions Recorded Confirmed armodafinil 250 mg tablet (Nuvigil) 250 mg PO QAM 07/15/18 10/21/22 calcium 650 mg-vitamin D3 12.5 2 tab PO DAILY 03/05/19 10/21/22 mcg-vitamin K 40 mcg chewable tablet (Viactiv) levothyroxine 75 mcg tablet 75 mcg PO Q2D 11/02/20 10/21/22 hydrocodone 10 mg-acetaminophen 1 tab PO Q8 PRN Pain 01/30/21 10/21/22 325 mg tablet hydroxyzine HCl 25 mg tablet 25 - 50 mg PO HS PRN Itching 01/30/21 10/21/22 levothyroxine 50 mcg tablet 50 mcg PO Q2D 01/30/21 10/21/22 lorazepam 0.5 mg tablet 0.5 mg PO TID PRN Anxiety 01/30/21 10/21/22 meclizine 25 mg tablet 25 mg PO TID PRN Dizziness 01/30/21 10/21/22 pantoprazole 40 mg tablet,delayed 40 mg PO AMHS 01/30/21 10/21/22 release hydrochlorothiazide 12.5 mg capsule 12.5 mg PO QAM 08/23/21 10/21/22 fentanyl 25 mcg/hr transdermal 25 mcg transdermal Q72H 04/10/22 10/21/22 patch dicyclomine 10 mg capsule 10 mg PO TID PRN Abdominal Pain 04/11/22 10/21/22 adalimumab 40 mg/0.8 mL 40 mg subcut Q7D 04/12/22 10/21/22 subcutaneous syringe kit (Humira) albuterol sulfate 90 mcg/actuation 2 puff inhalation QID PRN 10/21/22 10/21/22 aerosol inhaler Shortness Of Breath Or Wheezing escitalopram oxalate 20 mg tablet 20 mg PO QAM 10/21/22 10/21/22 flecainide 50 mg tablet 50 mg PO AMHS 10/21/22 10/21/22 losartan 50 mg tablet 50 mg PO QAM 10/21/22 10/21/22 mv-mn-folic 200 mcg-vit K 15 1 cap PO AMHS 10/21/22 10/21/22 mcg-lutein 5 mg-zeaxanthin 1 mg capsule (PreserVision AREDS 2 Plus Multivit) polyethylene glycol 3350 17 gram 17 g PO UD PRN Constipation 10/21/22 10/21/22 oral powder packet (Miralax) Previous Rx's Medication Instructions Recorded acetaminophen 325 mg tablet 650 mg PO Q6H PRN fever or pain 11/03/20 #100 tabs Results & Data (ED) Vital Signs Vital Signs - 24 hr 10/21/22 18:06 10/21/22 18:33 10/21/22 20:01 Temperature 37.1 C Temperature Source Temporal Artery Scan Pulse Rate 71 60 67 Pulse Rate from SpO2 Sensor 68 Respiratory Rate 20 18 18 Respiratory Effort / Characteristics Non-Labored Spontaneous Respiratory Depth Normal Blood Pressure 143/71 H 142/74 H Blood Pressure Mean 95 96 Pulse Oximetry 95 93 95 Oxygen Delivery Method Room Air Room Air Room Air Oxygen Flow Rate Sepsis Recent Fever Within 48 Hours No Sepsis New/Unexplained Change in Mental Status No Sepsis Action Taken by Nursing No Action Required Oxygen Flow Rate - Titration Pulse Oximetry Post Tiitration 10/21/22 21:00 10/21/22 21:00 Temperature Temperature Source Pulse Rate 61 Pulse Rate from SpO2 Sensor 61 Respiratory Rate 18 Respiratory Effort / Characteristics Respiratory Depth Blood Pressure 118/62 Blood Pressure Mean 80 Pulse Oximetry 95 89 L Oxygen Delivery Method Room Air Room Air Nasal Cannula Oxygen Flow Rate 0 Sepsis Recent Fever Within 48 Hours Sepsis New/Unexplained Change in Mental Status Sepsis Action Taken by Nursing Oxygen Flow Rate - Titration 2 Pulse Oximetry Post Tiitration 96 Home Medications Current Medication List: was personally reviewed by me Laboratory Data Attestation: I reviewed the patient's lab results. 10/21/22 18:33 10/21/22 18:33 Lab Results 10/21/22 10/21/22 10/21/22 Range/Units 18:33 18:33 18:33 WBC 5.86 (4.8-10.8) K/ul RBC 4.50 (4.20-5.40) M/uL Hgb 14.5 (12.0-16.0) g/dl Hct 42.3 (37.0-47.0) % MCV 94.0 (80.0-100.0) fL MCH 32.2 (25.0-34.0) pg MCHC 34.3 (32.0-36.0) g/dL RDW Std Deviation 46.5 H (36.4-46.3) fL RDW Coeff of Kim 13.5 (11.5-14.5) % Plt Count 149 (130-400) K/uL MPV 9.4 (9.4-12.4) fL Immature Gran % (Auto) 0.7 % Neut % (Auto) 70.0 % Lymph % (Auto) 19.3 % [place] % (Auto) 9.7 % Eos % (Auto) 0.0 % Baso % (Auto) 0.3 % Neut # (Auto) 4.10 (1.40-6.50) K/uL Lymph # (Auto) 1.13 L (1.2-3.4) K/uL [place] # (Auto) 0.57 (0.11-0.59) K/uL Eos # (Auto) 0.00 (0-0.50) K/uL Baso # (Auto) 0.02 (0-0.2) K/uL Immature Gran # (Auto) 0.04 (0.01-0.20) K/uL PT 9.9 (9.0-12.0) Seconds INR 0.9 (0.9-1.1) APTT 27.0 (21.0-31.0) Seconds PTT Ratio 1.0 Sodium 139 (136-145) mmol/L Potassium 3.7 (3.5-5.1) mmol/L Chloride 101 (98-107) mmol/L Carbon Dioxide 31 (21-32) mmol/L Anion Gap 7 (3-11) BUN 29 H (6-23) mg/dl Creatinine 1.14 (0.6-1.2) mg/dl Est Cr Clr Drug Dosing Not Reportable Est GFR ( Amer) 53.0 ml/min Est GFR (Non-Af Amer) 45.7 ml/min BUN/Creatinine Ratio 25.4 H (10-20) Glucose 107 H (70-99(Fasting)) mg/dl Calcium 8.9 (8.5-10.1) mg/dl Magnesium 1.9 (1.7-2.4) mg/dl Total Bilirubin 0.3 (0.2-1.0) mg/dl AST 46 H (13-39) U/L ALT 30 (7-52) U/L Alkaline Phosphatase 56 (34-104) U/L Troponin I High Sens 50.3 H* (0-14) pg/ml B-Natriuretic Peptide (0-100) pg/ml Total Protein 7.0 (6.0-8.3) gm/dl Albumin 3.8 (3.4-5.0) gm/dl Globulin 3.2 (2.5-4.0) gm/dl Albumin/Globulin Ratio 1.2 (0.9-2) Lipase 11 (11-82) U/L Urine Color Urine Appearance (Clear) Urine pH (4.5-7.5) Ur Specific [place] (1.000-1.030) Urine Protein (Negative) Urine Glucose (UA) (Negative) Urine Ketones (Negative) Urine Blood (Negative) Urine Nitrite (Negative) Urine Bilirubin (Negative) Urine Urobilinogen (Negative) Ur Leukocyte Esterase (Negative) Urine WBC (Auto) (0-5) /hpf Urine RBC (Auto) (0-4) /hpf U Hyaline Cast (Auto) (0-5) /lpf U Epithel Cells (Auto) (0-5) /lpf Urine Bacteria (Auto) (Negative) SARS-CoV-2 (PCR) (Negative) Influenza Type A (PCR) (Neg) Influenza Type B (PCR) (Neg) RSV (RT-PCR) (Neg) 10/21/22 10/21/22 10/21/22 Range/Units 18:33 18:49 19:42 WBC (4.8-10.8) K/ul RBC (4.20-5.40) M/uL Hgb (12.0-16.0) g/dl Hct (37.0-47.0) % MCV (80.0-100.0) fL MCH (25.0-34.0) pg MCHC (32.0-36.0) g/dL RDW Std Deviation (36.4-46.3) fL RDW Coeff of Kim (11.5-14.5) % Plt Count (130-400) K/uL MPV (9.4-12.4) fL Immature Gran % (Auto) % Neut % (Auto) % Lymph % (Auto) % [place] % (Auto) % Eos % (Auto) % Baso % (Auto) % Neut # (Auto) (1.40-6.50) K/uL Lymph # (Auto) (1.2-3.4) K/uL [place] # (Auto) (0.11-0.59) K/uL Eos # (Auto) (0-0.50) K/uL Baso # (Auto) (0-0.2) K/uL Immature Gran # (Auto) (0.01-0.20) K/uL PT (9.0-12.0) Seconds INR (0.9-1.1) APTT (21.0-31.0) Seconds PTT Ratio Sodium (136-145) mmol/L Potassium (3.5-5.1) mmol/L Chloride (98-107) mmol/L Carbon Dioxide (21-32) mmol/L Anion Gap (3-11) BUN (6-23) mg/dl Creatinine (0.6-1.2) mg/dl Est Cr Clr Drug Dosing Est GFR ( Amer) ml/min Est GFR (Non-Af Amer) ml/min BUN/Creatinine Ratio (10-20) Glucose (70-99(Fasting)) mg/dl Calcium (8.5-10.1) mg/dl Magnesium (1.7-2.4) mg/dl Total Bilirubin (0.2-1.0) mg/dl AST (13-39) U/L ALT (7-52) U/L Alkaline Phosphatase (34-104) U/L Troponin I High Sens (0-14) pg/ml B-Natriuretic Peptide 68 (0-100) pg/ml Total Protein (6.0-8.3) gm/dl Albumin (3.4-5.0) gm/dl Globulin (2.5-4.0) gm/dl Albumin/Globulin Ratio (0.9-2) Lipase Cancelled (11-82) U/L Urine Color Yellow Urine Appearance Clear (Clear) Urine pH 5.0 (4.5-7.5) Ur Specific [place] 1.020 (1.000-1.030) Urine Protein 1+ H (Negative) Urine Glucose (UA) Negative (Negative) Urine Ketones Negative (Negative) Urine Blood Negative (Negative) Urine Nitrite Negative (Negative) Urine Bilirubin Negative (Negative) Urine Urobilinogen Negative (Negative) Ur Leukocyte Esterase Negative (Negative) Urine WBC (Auto) 1-5 (0-5) /hpf Urine RBC (Auto) 0-4 (0-4) /hpf U Hyaline Cast (Auto) 5-10 H (0-5) /lpf U Epithel Cells (Auto) 20-30 H (0-5) /lpf Urine Bacteria (Auto) Negative (Negative) SARS-CoV-2 (PCR) (Negative) Influenza Type A (PCR) (Neg) Influenza Type B (PCR) (Neg) RSV (RT-PCR) (Neg) 10/21/22 10/21/22 Range/Units 19:42 20:58 WBC (4.8-10.8) K/ul RBC (4.20-5.40) M/uL Hgb (12.0-16.0) g/dl Hct (37.0-47.0) % MCV (80.0-100.0) fL MCH (25.0-34.0) pg MCHC (32.0-36.0) g/dL RDW Std Deviation (36.4-46.3) fL RDW Coeff of Kim (11.5-14.5) % Plt Count (130-400) K/uL MPV (9.4-12.4) fL Immature Gran % (Auto) % Neut % (Auto) % Lymph % (Auto) % [place] % (Auto) % Eos % (Auto) % Baso % (Auto) % Neut # (Auto) (1.40-6.50) K/uL Lymph # (Auto) (1.2-3.4) K/uL [place] # (Auto) (0.11-0.59) K/uL Eos # (Auto) (0-0.50) K/uL Baso # (Auto) (0-0.2) K/uL Immature Gran # (Auto) (0.01-0.20) K/uL PT (9.0-12.0) Seconds INR (0.9-1.1) APTT (21.0-31.0) Seconds PTT Ratio Sodium (136-145) mmol/L Potassium (3.5-5.1) mmol/L Chloride (98-107) mmol/L Carbon Dioxide (21-32) mmol/L Anion Gap (3-11) BUN (6-23) mg/dl Creatinine (0.6-1.2) mg/dl Est Cr Clr Drug Dosing Est GFR ( Amer) ml/min Est GFR (Non-Af Amer) ml/min BUN/Creatinine Ratio (10-20) Glucose (70-99(Fasting)) mg/dl Calcium (8.5-10.1) mg/dl Magnesium (1.7-2.4) mg/dl Total Bilirubin (0.2-1.0) mg/dl AST (13-39) U/L ALT (7-52) U/L Alkaline Phosphatase (34-104) U/L Troponin I High Sens 47.8 H (0-14) pg/ml B-Natriuretic Peptide (0-100) pg/ml Total Protein (6.0-8.3) gm/dl Albumin (3.4-5.0) gm/dl Globulin (2.5-4.0) gm/dl Albumin/Globulin Ratio (0.9-2) Lipase (11-82) U/L Urine Color Urine Appearance (Clear) Urine pH (4.5-7.5) Ur Specific [place] (1.000-1.030) Urine Protein (Negative) Urine Glucose (UA) (Negative) Urine Ketones (Negative) Urine Blood (Negative) Urine Nitrite (Negative) Urine Bilirubin (Negative) Urine Urobilinogen (Negative) Ur Leukocyte Esterase (Negative) Urine WBC (Auto) (0-5) /hpf Urine RBC (Auto) (0-4) /hpf U Hyaline Cast (Auto) (0-5) /lpf U Epithel Cells (Auto) (0-5) /lpf Urine Bacteria (Auto) (Negative) SARS-CoV-2 (PCR) POSITIVE A* (Negative) Influenza Type A (PCR) Negative (Neg) Influenza Type B (PCR) Negative (Neg) RSV (RT-PCR) Negative (Neg) Administered Medications Discontinued Medications Acetaminophen (Ofirmev) 1,000 mg in 100 mls @ 400 mls/hr IV NOW STA Stop: 10/21/22 19:02 Last Infusion: 10/21/22 20:10 Dose: 0 mls/hr Documented By: Admin: 10/21/22 19:02 Dose: 400 mls/hr Documented By: QGV Sodium Chloride (Nss 1000ml) 500 mls @ 999 mls/hr IV .Q31M ONE Stop: 10/21/22 21:10 Last Infusion: 10/21/22 21:52 Dose: 0 mls/hr Documented By: Admin: 10/21/22 21:02 Dose: 999 mls/hr Documented By: QGV Morphine Sulfate (Morphine Sulfate 2 Mg/Ml Carp) 2 mg IV NOW STA Stop: 10/21/22 18:49 Last Admin: 10/21/22 19:02 Dose: 2 mg Documented By: QGV Nitroglycerin (Nitroglycerin 2% Ointment 30gm Tube) 1 inch EXT NOW STA Stop: 10/21/22 20:14 Last Admin: 10/21/22 20:33 Dose: 1 inch Documented By: QGV Ondansetron HCl (Ondansetron Inj 2 Mg/Ml 2 Ml Vial) 4 mg IV NOW STA Stop: 10/21/22 18:49 Last Admin: 10/21/22 19:01 Dose: 4 mg Documented By: QGV Ondansetron HCl (Ondansetron Inj 2 Mg/Ml 2 Ml Vial) 4 mg IV NOW STA Stop: 10/21/22 20:08 Last Admin: 10/21/22 20:08 Dose: 4 mg Documented By: QGV Imaging Data My Impression: Chest x-ray per my review: There is some parenchymal congestion consistent with a potential viral process. No focal pneumonia or pneumothorax. Radiologist's Impression: Abdomen/Pelvis CT 10/21/22 18:47 Exam(s): CT ABDOMEN + PELVIS Without Contrast EXAM: CT Abdomen and Pelvis Without Intravenous Contrast CLINICAL HISTORY: Reason for exam: pain, poss obstruc. TECHNIQUE: Axial computed tomography images of the abdomen and pelvis without intravenous contrast. Automated exposure control was utilized for the study. A dose lowering technique was utilized adhering to the principles of ALARA. COMPARISON: CT abdomen and pelvis 07/12/2022. FINDINGS: Lung bases: Atelectasis or scarring is seen in the lung bases. Mediastinum: Mild hiatal hernia. ABDOMEN: Liver: Unremarkable. Gallbladder and bile ducts: Cholecystectomy. No ductal dilation. Pancreas: Unremarkable. No ductal dilation. Spleen: Unremarkable. No splenomegaly. Adrenals: Unremarkable. No mass. Kidneys and ureters: Indeterminate 10 mm left renal lesion. No obstructing stones. No hydronephrosis. Stomach and bowel: Colonic diverticulosis without evidence of acute diverticulitis. Surgical clips in the stomach are again noted. No obstruction. PELVIS: Appendix: No findings to suggest acute appendicitis. Bladder: Unremarkable. No stones. Reproductive: Hysterectomy. ABDOMEN and PELVIS: Intraperitoneal space: Unremarkable. No free air. No significant fluid collection. Bones/joints: Severe scoliosis. Diffusely decreased osseous mineralization. Degenerative change in the spine. Severe degenerative change in the hips. Fusion of L5-S1. No acute fracture. No dislocation. Soft tissues: Battery pack overlying the left gluteus. Vasculature: Atherosclerotic Calcification in the Abdominal Aorta and Branches. No abdominal aortic aneurysm. Lymph nodes: Unremarkable. No enlarged lymph nodes. IMPRESSION: 1. No acute abnormality in the abdomen or pelvis on noncontrast examination. 2. Colonic diverticulosis without evidence of acute diverticulitis. 3. Indeterminate 10 mm left renal lesion. This can be evaluated with MRI as clinically. Electronically signed by: Gualberto Jama MD 10/21/22 21:15 PM Discharge Plan Visit Data Chief Complaint: Chest Pain Stated Complaint: REF BY DOC,FLUID LUNGS,DEHYDRATION ED Provider: Alexi Gillespie Discharge Problem: Precordial chest pain, Diffuse abdominal pain, Vomiting, COVID-19, Elevated troponin Patient Disposition: Admitted As Inpatient Condition: Fair Forms Stand Alone Forms: My [employer] Prescriptions Prescriptions: No Action armodafinil [Nuvigil] 250 mg Tablet 250 mg PO QAM calcium-vitamin D3-vitamin K [Viactiv] 650 mg-12.5 mcg-40 mcg Tablet,Chewable 2 tab PO DAILY hydrocodone-acetaminophen 10-325 mg Tablet 1 tab PO Q8 PRN (Reason: Pain) lorazepam 0.5 mg Tablet 0.5 mg PO TID PRN (Reason: Anxiety) meclizine 25 mg Tablet 25 mg PO TID PRN (Reason: Dizziness) pantoprazole 40 mg Tablet,Delayed Release (Dr/Ec) 40 mg PO AMHS hydroxyzine HCl 25 mg Tablet 25 - 50 mg PO HS PRN (Reason: Itching) levothyroxine 50 mcg Tablet 50 mcg PO Q2D Rx Instructions: ALTERNATE WITH 75MCG losartan 50 mg tablet 50 mg PO QAM PreserVision AREDS 2 Plus MV 200 mcg-15 mcg- 5 mg-1 mg Capsule 1 cap PO AMHS polyethylene glycol 3350 [Miralax] 17 gram powder in packet 17 g PO UD PRN (Reason: Constipation) flecainide 50 mg tablet 50 mg PO AMHS albuterol sulfate 90 mcg/actuation HFA aerosol inhaler 2 puff INHALATION QID PRN (Reason: Shortness Of Breath Or Wheezing) escitalopram oxalate 20 mg tablet 20 mg PO QAM levothyroxine 75 mcg Tablet 75 mcg PO Q2D Rx Instructions: ALTERNATE WITH 50MCG acetaminophen 325 mg Tablet 650 mg PO Q6H PRN (Reason: fever or pain) Qty: 100 0RF hydrochlorothiazide 12.5 mg capsule 12.5 mg PO QAM fentanyl 25 mcg/hr patch 72 hour 25 mcg transdermal Q72H Rx Instructions: took off today and didnt replace yet dicyclomine 10 mg capsule 10 mg PO TID PRN (Reason: Abdominal Pain) Humira 40 mg/0.8 mL Syringe Kit 40 mg SUBCUT Q7D Rx Instructions: sat Referrals Referrals: Ambrose Ribera MD [Primary Care Provider] -
[2022-10-21 18:57] LABS: Basophils # (auto) 0.02 K/uL (0-0.2); Basophils % (auto) 0.3 %; Hematocrit (blood only) 42.3 % (37.0-47.0); Hemoglobin 14.5 g/dl (12.0-16.0); Immature Granulocytes # (auto) 0.04 K/uL (0.01-0.20); Immature Granulocytes % (auto) 0.7 %; Lymphocytes # (auto) 1.13 K/uL (1.2-3.4); Lymphocytes % (auto) 19.3 %; Mean Corpuscular Hemoglobin 32.2 pg (25.0-34.0); Mean Corpuscular Hgb Conc 34.3 g/dL (32.0-36.0); Mean Platelet Volume 9.4 fL (9.4-12.4); Monocytes # (auto) 0.57 K/uL (0.11-0.59); Monocytes % (auto) 9.7 %; Platelet Count 149 K/uL (130-400); RDW Coefficient of Variation 13.5 % (11.5-14.5); RDW Standard Deviation 46.5 fL (36.4-46.3); White Blood Count 5.86 K/ul (4.8-10.8)
[2022-10-21 19:10] LABS: Alanine Aminotransferase 30 U/L (7-52); Albumin Globulin Ratio 1.2 (0.9-2); Albumin Level 3.8 gm/dl (3.4-5.0); Alkaline Phosphatase 56 U/L (34-104); Anion Gap 7 (3-11); Aspartate Aminotransferase 46 U/L (13-39); BUN Creatinine Ratio 25.4 (10-20); Bilirubin,Total 0.3 mg/dl (0.2-1.0); Blood Urea Nitrogen 29 mg/dl (6-23); Calcium 8.9 mg/dl (8.5-10.1); Carbon Dioxide 31 mmol/L (21-32); Chloride 101 mmol/L (98-107); Est GFR (Non-African American) 45.7 ml/min; Globulin 3.2 gm/dl (2.5-4.0); Glucose 107 mg/dl (70-99(Fasting)); Magnesium 1.9 mg/dl (1.7-2.4); Potassium 3.7 mmol/L (3.5-5.1); Sodium 139 mmol/L (136-145)
[2022-10-21 19:23] LABS: Lipase 11 U/L (11-82)
[2022-10-21 19:29] LABS: INR 0.9 (0.9-1.1); Prothrombin Time 9.9 Seconds (9.0-12.0)
[2022-10-21 20:00] LABS: Appearance Urine Clear (Clear); Bacteria Urine Automated Negative (Negative); Bilirubin Urine Negative (Negative); Blood Urine Negative (Negative); Color Urine Yellow; Epithelial Cell Urine Auto 20-30 /lpf (0-5); Glucose Urine UA Negative (Negative); Ketones Urine Negative (Negative); Leukocyte Esterase Urine Negative (Negative); Nitrite Urine Negative (Negative); Protein Urine 1+ (Negative); RBC Urine Automated 0-4 /hpf (0-4); Urobilinogen Urine Negative (Negative)
[2022-10-21 20:11] LABS: Troponin I High Sensitivity 50.3 pg/ml (0-14)
[2022-10-21] MEDS ORDERED: NITROGLYCERIN 2% OINTMENT 30GM TUBE EXT STA (20:13)
[2022-10-21 20:34] LABS: Influenza A virus by PCR Negative (Neg); Influenza B virus by PCR Negative (Neg); RSV by PCR Negative (Neg)
[2022-10-21] MEDS ORDERED: SODIUM CHLORIDE 0.9% 1000ML 500 ML IV ONE (20:40)
[2022-10-21 20:49] LABS: SARS CoV2 RNA(COVID-19) Ceph POSITIVE (Negative)
--- NOTE | 2022-10-21 21:16 | CT Scan Report ---
Exam(s): CT ABDOMEN + PELVIS Without Contrast EXAM: CT Abdomen and Pelvis Without Intravenous Contrast CLINICAL HISTORY: Reason for exam: pain, poss obstruc. TECHNIQUE: Axial computed tomography images of the abdomen and pelvis without intravenous contrast. Automated exposure control was utilized for the study. A dose lowering technique was utilized adhering to the principles of ALARA. COMPARISON: CT abdomen and pelvis 07/12/2022. FINDINGS: Lung bases: Atelectasis or scarring is seen in the lung bases. Mediastinum: Mild hiatal hernia. ABDOMEN: Liver: Unremarkable. Gallbladder and bile ducts: Cholecystectomy. No ductal dilation. Pancreas: Unremarkable. No ductal dilation. Spleen: Unremarkable. No splenomegaly. Adrenals: Unremarkable. No mass. Kidneys and ureters: Indeterminate 10 mm left renal lesion. No obstructing stones. No hydronephrosis. Stomach and bowel: Colonic diverticulosis without evidence of acute diverticulitis. Surgical clips in the stomach are again noted. No obstruction. PELVIS: Appendix: No findings to suggest acute appendicitis. Bladder: Unremarkable. No stones. Reproductive: Hysterectomy. ABDOMEN and PELVIS: Intraperitoneal space: Unremarkable. No free air. No significant fluid collection. Bones/joints: Severe scoliosis. Diffusely decreased osseous mineralization. Degenerative change in the spine. Severe degenerative change in the hips. Fusion of L5-S1. No acute fracture. No dislocation. Soft tissues: Battery pack overlying the left gluteus. Vasculature: Atherosclerotic Calcification in the Abdominal Aorta and Branches. No abdominal aortic aneurysm. Lymph nodes: Unremarkable. No enlarged lymph nodes. IMPRESSION: 1. No acute abnormality in the abdomen or pelvis on noncontrast examination. 2. Colonic diverticulosis without evidence of acute diverticulitis. 3. Indeterminate 10 mm left renal lesion. This can be evaluated with MRI as clinically. Electronically signed by: Gualberto Jama MD 10/21/22 21:15 PM
--- NOTE | 2022-10-22 01:43 | History and Physical Report ---
DATE OF ADMISSION: 10/21/2022. CHIEF COMPLAINT: Total body aches, chest pain, belly pain, nausea and found to have COVID. HISTORY OF PRESENT ILLNESS: A 81-year-old female with past medical history significant for diverticulosis, fibromyalgia, osteoarthritis, osteoporosis, hypothyroidism, obstructive sleep apnea, not on CPAP, hypertension, hyperlipidemia, paroxysmal atrial fibrillation, currently not on anticoagulation due to concern for GI bleed, tachybrady syndrome, status post dual chamber pacemaker in 2020, history of COPD, hypothyroidism, GERD, ileocecal valve syndrome, urinary incontinence, chronic kidney disease stage III, history of rheumatoid arthritis, depression, somatization disorder, status post insertion of spinal cord stimulator, history of partial colectomy, presents with ongoing symptoms of body aches, weakness for the last 3 weeks. The patient says on 07/12/2022, she fell and she broke one of her leads in the spinal stimulator and since then she is having back pains and she is supposed to replace it soon, but she also had poor appetite, some nausea, dry heaves. Today she has lot of pain in the right side lower chest, which is also tender on palpation, which brought her to the hospital and found to have COVID. Her oxygen saturation was 89%, currently on oxygen nasal cannula, she is saturating okay. She is afebrile. Occasional cough. Has lot of sore throat. No runny nose. Has some headache, no blurred visions. Has some diarrhea. No blood or black stools. Normal bladder movements. No swelling in the legs. Currently, resting comfortably. ALLERGIES: TO BEE VENOM, IODINATED CONTRAST MEDIA, VENLAFAXINE, GABAPENTIN, CRESTOR, ATORVASTATIN, SHELLFISH DERIVED. PAST MEDICAL HISTORY: As mentioned above. PAST SURGICAL HISTORY: Right knee open drainage of a cyst, left knee arthroplasty, cardiac catheterization, colonoscopy, colonoscopy with endoscopic mucosal resection, colonoscopy with removal of lesions, EGDs multiple, EGD with biopsy, injection of the lumbosacral spine, laparoscopic partial colectomy with anastomosis, laparoscopic surgical colpopexy, laparoscopic cholecystectomy, excision of lipoma of the right shoulder, insertion of spinal stimulator, status post pacemaker placement, paraesophageal hernia repair, laparoscopic partial hysterectomy with left oophorectomy, anterior repair of vagina. right rotator cuff repair, injection of sacroiliac joint. MEDICATIONS: The patient is on Tylenol 650 mg p.o. q. 6 hours p.r.n., albuterol 2 puffs inhalation q.i.d. p.r.n. Nuvigil 250 mg p.o. a.m., calcium plus vitamin D 2 tablets p.o. daily, dicyclomine 10 mg p.o. t.i.d. p.r.n., Lexapro 20 mg p.o. a.m., fentanyl 25 mcg q. 72 hours, flecainide 50 mg p.o. b.i.d., Humira subcutaneous q. 7 days, hydrochlorothiazide 12.5 mg p.o. a.m., hydrocodone/acetaminophen 1 tablet p.o. q. 8 hours p.r.n., hydroxyzine 25 mg p.o. at bedtime p.r.n., levothyroxine alternating to 50 and 75 mcg, lorazepam 0.5 mg p.o. t.i.d. p.r.n., losartan 50 mg p.o. daily, meclizine 25 mg p.o. t.i.d. p.r.n., PreserVision AREDS 2 plus one capsule p.o. b.i.d., Protonix 40 mg p.o. b.i.d., MiraLax 17 g p.o. daily p.r.n. FAMILY HISTORY: Significant for mother has arthritis, heart disorder; sister has arthritis, colon cancer; father has heart disorder. SOCIAL HISTORY: , no smoking, no alcohol, no drug use. REVIEW OF SYSTEMS: As per HPI. Rest of review of systems is negative. PHYSICAL EXAMINATION: GENERAL: The patient is of moderate build, not in acute distress. VITAL SIGNS: Temperature 37.1, pulse 61, respiratory rate 18, blood pressure 118/62, oxygen 89% on room air. HEENT: Pupils equal, round and reactive to light. Oral mucosa dry. NECK: No JVD. No neck masses. CARDIOVASCULAR: S1 and S2 heard. Regular rate and rhythm. No murmur, no gallop. RESPIRATORY SYSTEM: Normal AP diameter. No accessory muscle use. No wheezing or crackles. Some point tenderness in the right lower chest. ABDOMEN: Soft, bowel sounds present. Some right upper quadrant tenderness present. No guarding, no rigidity, no distention. CENTRAL NERVOUS SYSTEM: Alert and oriented. Speech is clear. No facial droop. Obeys simple commands. Moves extremities. EXTREMITIES: No edema, no erythema. LABORATORY DATA: WBC 5.8, hemoglobin 14.4, hematocrit 42.3, platelets 149. PT 9.9, INR 0.9, APTT 27. Sodium , potassium 3.7, chloride 101, bicarbonate 31, BUN 29, creatinine 1.1, serum glucose 107, calcium 8.9, magnesium 1.9, total bilirubin 0.3, AST 46, ALT 30, alkaline phosphatase 56. Troponin I high sensitivity 47.8. BNP 268. Lipase 7. Urinalysis negative. SARS-CoV-2 PCR positive. Influenza A and B PCR negative. RSV PCR negative. IMAGING DATA: CT abdomen and pelvis without contrast, no acute abnormality in abdomen or pelvis on noncontrast examination. Colonic diverticulosis without evidence of acute diverticulitis, indeterminate 10 mm left renal lesion. This can be evaluated with MRI and clinically. Chest x-ray, no acute findings. EKG: Atrial paced rhythm at a rate of 60. ASSESSMENT AND PLAN: This is a 81-year-old female who presents with COVID. 1. COVID. Her symptoms could be most likely secondary to COVID. She has weakness since last 3 weeks and also body aches, headaches, poor appetite, dry heaving and today she has lot of pain in the right lower chest and tender to palpation of the abdomen. CT abdomen is okay. We will get a CT chest. The patient is allergic to contrast, we will do without contrast study. The patient is currently requiring oxygen, but the patient has symptoms for long time, looks like she does not meets criteria for remdesivir. We will place her on Decadron. The patient is COVID vaccinated and boosted twice. We will do COVID precautions. Gentle fluids. Monitor in the medical floor. 2. Mild elevation of troponins. They are trending down. We will get troponin in the morning labs and will get echocardiogram. 3. History of paroxysmal atrial fibrillation. On flecainide, not on anticoagulation secondary to some GI bleed. 4. Obstructive sleep apnea, not on CPAP. 5. Hypertension. On losartan and hctz.. We will monitor the blood pressure. 6. History of rheumatoid arthritis, on Humira. 7. Depression, on Lexapro. 8. History of hypothyroidism. On Synthroid. 9. Gastroesophageal reflux disease. On Protonix. 10. History of chronic obstructive pulmonary disease. Currently stable. Continue her home inhalers. 11. Chronic diastolic congestive heart failure. Getting fluids. We will monitor for any volume overload. 12. History of spinal cord stimulator. She states one of the leads broken recently. Will need followup. 13. Left renal lesion on ct scan. needs followup. 14. Deep venous thrombosis prophylaxis: We will place her on heparin subcutaneous. DISPOSITION: Closely monitor in the medical floor. PT/OT prior to discharge. Social service to help with discharge planning. Level 1 full code. Job ID: [id number] [facility]
[2022-10-22] MEDS ORDERED: hydrOXYzine HCl 25 MG TAB PO PRN (02:19)
[2022-10-22] MEDS ORDERED: POLYETHYLENE (MIRALAX) 17 GM PACK PO PRN (02:19)
[2022-10-22] MEDS ORDERED: ALBUTEROL HFA 8 GM INHALER INH PRN (02:19)
[2022-10-22] MEDS ORDERED: ACETAMINOPHEN 325 MG TAB PO PRN (02:19)
[2022-10-22] MEDS ORDERED: DICYCLOMINE HCL 10 MG CAP PO PRN (02:19)
[2022-10-22] MEDS ORDERED: MoRPHine SULFATE 4 MG/ML 1 ML CARP\\VIAL IV PRN (02:19)
[2022-10-22] MEDS ORDERED: MECLIZINE HCL 25 MG TAB PO PRN (02:19)
[2022-10-22] MEDS ORDERED: LORazepam 0.5 MG TAB PO PRN (02:19)
[2022-10-22] MEDS: HYDROcodone/ACETAMINOPHEN 10/325 TAB PO PRN ×3 (03:04→18:37)
[2022-10-22] MEDS: D5W AND NSS 1,000 ML IV SCH ×2 (03:08→16:26)
[2022-10-22] MEDS: fentaNYL 25 MCG/HR TDSY TD SCH (03:34)
--- NOTE | 2022-10-22 06:00 | CT Scan Report ---
Exam(s): CT CHEST Without Contrast EXAM: CT Chest Without Intravenous Contrast CLINICAL HISTORY: Covid. TECHNIQUE: Axial computed tomography images of the chest without intravenous contrast. Automated exposure control was utilized for the study. A dose lowering technique was utilized adhering to the principles of ALARA. COMPARISON: CT chest 07/12/2022. FINDINGS: Lungs: Bibasilar atelectasis. Subtle airspace opacities bilaterally are most consistent with atypical infection. Pleural space: Unremarkable. No pneumothorax. No significant effusion. Heart: Unremarkable. No cardiomegaly. No significant pericardial effusion. No significant coronary artery calcifications. Bones/joints: There are degenerative changes of the spine. No fracture. There is a reversed left shoulder arthroplasty. Stable chronic T10 compression fracture. No dislocation. Soft tissues: Unremarkable. Vasculature: Mild atherosclerosis. No thoracic aortic aneurysm. Lymph nodes: Unremarkable. No enlarged lymph nodes. IMPRESSION: Subtle airspace opacities bilaterally are most consistent with atypical infection. Electronically signed by: Laura Jorgensen MD 10/22/22 05:59 AM
[2022-10-22] MEDS: LEVOTHYROXINE SODIUM 50 MCG TABLET PO SCH (06:22)
[2022-10-22] MEDS: HEPARIN SOD 5,000 UNIT/0.5 ML VIAL SQ SCH ×3 (06:22→19:56)
[2022-10-22] MEDS: dexAMETHasone 6 MG in SYRINGE 0 ML IV SCH (06:23)
[2022-10-22] MEDS: ONDANSETRON INJ 2 MG/ML 2 ML VIAL IV PRN ×2 (06:33→18:51)
--- NOTE | 2022-10-22 06:59 | XRay Report ---
XR chest 1V portable HISTORY: 81 years-old Female Dyspnea acute shortness of breath COMPARISON: Chest CT 10/22/2022 TECHNIQUE: AP view of the chest FINDINGS: Cardiac silhouette is enlarged. Left subclavian pacer. No pneumothorax, pleural effusion or overt pul monary edema. Subsegmental bibasilar consolidation. Mild ill-defined bilateral pulmonary opacities. D egenerative changes of the spine and right shoulder. Left shoulder arthroplasty. Surgical clips of th e upper abdomen with stimulator lead overlying the midthoracic spine. IMPRESSION: 1. Cardiomegaly without overt pulmonary edema. 2. Mild ill-defined patchy bilateral opacities correlate with the groundglass densities seen on the c omparison chest CT. Findings are suggestive of a mild nonspecific infectious or inflammatory pneumoni tis such as viral pneumonia. ACT 112: Negative or not required by law. The above report was generated using voice recognition software. It may contain grammatical, syntax o r spelling errors. Electronically signed by: Daniel Fitzgerald M.D. 10/22/2022 6:58 AM
[2022-10-22] MEDS: LOSARTAN POTASSIUM 50 MG TAB PO SCH (07:34)
[2022-10-22] MEDS: ESCITALOPRAM OXALATE 20 MG TAB PO SCH (07:35)
[2022-10-22] MEDS: DOXYCYCLINE HYCLATE 100 MG CAP PO SCH ×2 (07:35→18:33)
[2022-10-22] MEDS: FLECAINIDE ACETATE 100 MG TABLET PO SCH ×2 (07:35→19:55)
[2022-10-22] MEDS: CEROVITE ADV FORMULA TAB PO SCH (07:35)
[2022-10-22] MEDS: PANTOprazole 40 MG TAB PO SCH ×2 (07:35→19:55)
[2022-10-22] MEDS: hydroCHLOROthiazide 25 MG TAB PO SCH (07:35)
[2022-10-22] MEDS: CHECK fentaNYL PATCH PLACEMENT SCH ×3 (07:37→20:03)
[2022-10-22] MEDS ORDERED: CALCIUM VITAMIN D3 VITAMIN K PO SCH (09:00)
--- NOTE | 2022-10-22 10:48 | Electrocardiogram Report ---
Test Reason : Blood Pressure : / mmHG Vent. Rate : 063 BPM Atrial Rate : 063 BPM P-R Int : 138 ms QRS Dur : 090 ms QT Int : 404 ms P-R-T Axes : 054 -16 019 degrees QTc Int : 413 ms Normal sinus rhythm Possible Left atrial enlargement Incomplete right bundle branch block Borderline ECG When compared with ECG of 03-OCT-2022 13:34, Sinus rhythm has replaced Electronic atrial pacemaker Confirmed by Timur Sams ([id number]) on 10/22/2022 10:48:29 AM Referred By: Ernestina Swanson Confirmed By:Alphonse Sams
--- NOTE | 2022-10-22 10:54 | Electrocardiogram Report ---
Test Reason : Blood Pressure : / mmHG Vent. Rate : 060 BPM Atrial Rate : 060 BPM P-R Int : 000 ms QRS Dur : 092 ms QT Int : 442 ms P-R-T Axes : 000 077 047 degrees QTc Int : 442 ms Poor data quality, interpretation may be adversely affected Atrial-paced rhythm Abnormal ECG When compared with ECG of 21-OCT-2022 18:26, (unconfirmed) Electronic atrial pacemaker has replaced Sinus rhythm RSR' pattern in V1 is no longer Present Confirmed by Timur Sams ([id number]) on 10/22/2022 10:53:54 AM Referred By: Ernestina Swanson Confirmed By:Alphonse Sams
--- NOTE | 2022-10-22 19:12 | Hospitalist Progress Note ---
Date of Service October 22, 2022 Assessment & Plan (1) COVID-19: (2) Elevated troponin: (3) Diffuse abdominal pain: (4) Precordial chest pain: (5) Vomiting: Plan: This is a 81-year-old female who presents with COVID. COVID 19 viral pneumonia 1. COVID. Her symptoms could be most likely secondary to COVID. She has weakness since last 3 weeks and also body aches, headaches, poor appetite, dry heaving and today she has lot of pain in the right lower chest and tender to palpation of the abdomen. CT abdomen and CT chest obtained, abdomen - no acute findings , CT chest c/w viral pneumonia. The patient is no longer requiring oxygen. Also as she has had symptoms for long time, looks like she does not meets criteria for remdesivir.Decadron was started on admission, will cont. for now.. The patient is COVID vaccinated and boosted twice. We will do COVID precautions. Gentle fluids. Monitor in the medical floor. Diarrhea likely secondary to covid. Will check stool studies. 2. Mild elevation of troponins. They are trending down.echocardiogram ordered. 3. History of paroxysmal atrial fibrillation. On flecainide, not on anticoagulation secondary to some GI bleed. 4. Obstructive sleep apnea, just got CPAP, haven't used yet. will order cpap hs 5. Hypertension. On losartan and hctz.. We will monitor the blood pressure. 6. History of rheumatoid arthritis, on Humira. 7. Depression, on Lexapro. 8. History of hypothyroidism. On Synthroid. 9. Gastroesophageal reflux disease, hx of hiatal hernia. On Protonix. add iv pepcid, as pt w/ increased discomfort now, and added steroid 10. History of chronic obstructive pulmonary disease. Currently stable. Continue her home inhalers. 11. Chronic diastolic congestive heart failure. Getting fluids. We will monitor for any volume overload. 12. History of spinal cord stimulator. She states one of the leads broken recently. Will need followup. 13. Left renal lesion on ct scan. needs followup. DVT prophylaxis:heparin subq PT/OT prior to discharge. Code: full code. Admission and Anticipated Discharge Date Admission Date: October 21, 2022 Subjective Pt see in follow up of weakness, + covid, abd./R chest pain, n/v/d Currently laying in bed, in NAD Breathing comfortably on RA Says her spinal cord stimulator broke and she has been having pain, in the process of getting it repaired/removed. Review of Systems Review of Systems: All systems reviewed & are unremarkable except as noted in Subjective Physical Exam Physical Exam: GENERAL: The patient is of moderate build, not in acute distress. HEENT: Pupils equal, round and reactive to light. Oral mucosa dry. NECK: No JVD. No neck masses. CARDIOVASCULAR: S1 and S2 heard. Regular rate and rhythm. No murmur, no gallop. RESPIRATORY SYSTEM: Normal AP diameter. No accessory muscle use. No wheezing or crackles. Some point tenderness in the right lower chest. ABDOMEN: Soft, bowel sounds present. Some right upper quadrant tenderness present. No guarding, no rigidity, no distention. NEURO: Alert and oriented. Speech is clear. No facial droop. Obeys simple commands. Moves extremities. EXTREMITIES: No edema, no erythema. Results & Data Results & Data Vital Signs (Past 12 Hours) Vital Signs Temp Pulse Pulse Resp BP Pulse Ox O2 Del Method 10/22/22 17:23 Room Air 10/22/22 16:49 63 10/22/22 16:07 36.8 C 66 18 112/62 95 Room Air 10/22/22 13:21 63 18 142/73 H 98 Room Air 10/22/22 08:04 36.4 C L 62 14 107/52 L 94 Room Air 10/22/22 08:00 62 16 110/59 L 95 Room Air Laboratory Results 10/22/22 10/21/22 10/21/22 Range/Units 05:28 20:58 19:42 PT (9.0-12.0) Seconds INR (0.9-1.1) APTT (21.0-31.0) Seconds PTT Ratio Sodium (136-145) mmol/L Potassium (3.5-5.1) mmol/L Chloride (98-107) mmol/L Carbon Dioxide (21-32) mmol/L Anion Gap (3-11) BUN (6-23) mg/dl Creatinine (0.6-1.2) mg/dl Est Cr Clr Drug Dosing Est GFR ( Amer) ml/min Est GFR (Non-Af Amer) ml/min BUN/Creatinine Ratio (10-20) Glucose (70-99(Fasting)) mg/dl Calcium (8.5-10.1) mg/dl Magnesium (1.7-2.4) mg/dl Total Bilirubin (0.2-1.0) mg/dl AST (13-39) U/L ALT (7-52) U/L Alkaline Phosphatase (34-104) U/L Troponin I High Sens 39.7 H 47.8 H (0-14) pg/ml B-Natriuretic Peptide (0-100) pg/ml Total Protein (6.0-8.3) gm/dl Albumin (3.4-5.0) gm/dl Globulin (2.5-4.0) gm/dl Albumin/Globulin Ratio (0.9-2) Lipase (11-82) U/L Urine Color Urine Appearance (Clear) Urine pH (4.5-7.5) Ur Specific [place] (1.000-1.030) Urine Protein (Negative) Urine Glucose (UA) (Negative) Urine Ketones (Negative) Urine Blood (Negative) Urine Nitrite (Negative) Urine Bilirubin (Negative) Urine Urobilinogen (Negative) Ur Leukocyte Esterase (Negative) Urine WBC (Auto) (0-5) /hpf Urine RBC (Auto) (0-4) /hpf U Hyaline Cast (Auto) (0-5) /lpf U Epithel Cells (Auto) (0-5) /lpf Urine Bacteria (Auto) (Negative) SARS-CoV-2 (PCR) POSITIVE A* (Negative) Influenza Type A (PCR) Negative (Neg) Influenza Type B (PCR) Negative (Neg) RSV (RT-PCR) Negative (Neg) 10/21/22 10/21/22 10/21/22 Range/Units 19:42 18:49 18:33 PT (9.0-12.0) Seconds INR (0.9-1.1) APTT (21.0-31.0) Seconds PTT Ratio Sodium (136-145) mmol/L Potassium (3.5-5.1) mmol/L Chloride (98-107) mmol/L Carbon Dioxide (21-32) mmol/L Anion Gap (3-11) BUN (6-23) mg/dl Creatinine (0.6-1.2) mg/dl Est Cr Clr Drug Dosing Est GFR ( Amer) ml/min Est GFR (Non-Af Amer) ml/min BUN/Creatinine Ratio (10-20) Glucose (70-99(Fasting)) mg/dl Calcium (8.5-10.1) mg/dl Magnesium (1.7-2.4) mg/dl Total Bilirubin (0.2-1.0) mg/dl AST (13-39) U/L ALT (7-52) U/L Alkaline Phosphatase (34-104) U/L Troponin I High Sens (0-14) pg/ml B-Natriuretic Peptide 68 (0-100) pg/ml Total Protein (6.0-8.3) gm/dl Albumin (3.4-5.0) gm/dl Globulin (2.5-4.0) gm/dl Albumin/Globulin Ratio (0.9-2) Lipase Cancelled (11-82) U/L Urine Color Yellow Urine Appearance Clear (Clear) Urine pH 5.0 (4.5-7.5) Ur Specific [place] 1.020 (1.000-1.030) Urine Protein 1+ H (Negative) Urine Glucose (UA) Negative (Negative) Urine Ketones Negative (Negative) Urine Blood Negative (Negative) Urine Nitrite Negative (Negative) Urine Bilirubin Negative (Negative) Urine Urobilinogen Negative (Negative) Ur Leukocyte Esterase Negative (Negative) Urine WBC (Auto) 1-5 (0-5) /hpf Urine RBC (Auto) 0-4 (0-4) /hpf U Hyaline Cast (Auto) 5-10 H (0-5) /lpf U Epithel Cells (Auto) 20-30 H (0-5) /lpf Urine Bacteria (Auto) Negative (Negative) SARS-CoV-2 (PCR) (Negative) Influenza Type A (PCR) (Neg) Influenza Type B (PCR) (Neg) RSV (RT-PCR) (Neg) 10/21/22 10/21/22 Range/Units 18:33 18:33 PT 9.9 (9.0-12.0) Seconds INR 0.9 (0.9-1.1) APTT 27.0 (21.0-31.0) Seconds PTT Ratio 1.0 Sodium 139 (136-145) mmol/L Potassium 3.7 (3.5-5.1) mmol/L Chloride 101 (98-107) mmol/L Carbon Dioxide 31 (21-32) mmol/L Anion Gap 7 (3-11) BUN 29 H (6-23) mg/dl Creatinine 1.14 (0.6-1.2) mg/dl Est Cr Clr Drug Dosing Not Reportable Est GFR ( Amer) 53.0 ml/min Est GFR (Non-Af Amer) 45.7 ml/min BUN/Creatinine Ratio 25.4 H (10-20) Glucose 107 H (70-99(Fasting)) mg/dl Calcium 8.9 (8.5-10.1) mg/dl Magnesium 1.9 (1.7-2.4) mg/dl Total Bilirubin 0.3 (0.2-1.0) mg/dl AST 46 H (13-39) U/L ALT 30 (7-52) U/L Alkaline Phosphatase 56 (34-104) U/L Troponin I High Sens 50.3 H* (0-14) pg/ml B-Natriuretic Peptide (0-100) pg/ml Total Protein 7.0 (6.0-8.3) gm/dl Albumin 3.8 (3.4-5.0) gm/dl Globulin 3.2 (2.5-4.0) gm/dl Albumin/Globulin Ratio 1.2 (0.9-2) Lipase 11 (11-82) U/L Urine Color Urine Appearance (Clear) Urine pH (4.5-7.5) Ur Specific [place] (1.000-1.030) Urine Protein (Negative) Urine Glucose (UA) (Negative) Urine Ketones (Negative) Urine Blood (Negative) Urine Nitrite (Negative) Urine Bilirubin (Negative) Urine Urobilinogen (Negative) Ur Leukocyte Esterase (Negative) Urine WBC (Auto) (0-5) /hpf Urine RBC (Auto) (0-4) /hpf U Hyaline Cast (Auto) (0-5) /lpf U Epithel Cells (Auto) (0-5) /lpf Urine Bacteria (Auto) (Negative) SARS-CoV-2 (PCR) (Negative) Influenza Type A (PCR) (Neg) Influenza Type B (PCR) (Neg) RSV (RT-PCR) (Neg) Medications Administered Current Inpatient Medications Acetaminophen (Acetaminophen 325 Mg Tab) 650 mg PO Q4H PRN PRN Reason: pain/fever Stop: 11/21/22 02:18 Hydrocodone Bitart/Acetaminophen (Hydrocodone/Acetaminophen 10/325 Tab) 1 tab PO Q8 PRN PRN Reason: Moderate Pain (Scale 4, 5, 6) Stop: 11/05/22 02:18 Last Admin: 10/22/22 18:37 Dose: 1 tab Albuterol (Albuterol Hfa 8 Gm Inhaler) 2 puffs INH QID PRN PRN Reason: Shortness Of Breath Or Wheezing Stop: 11/21/22 02:18 Dicyclomine HCl (Dicyclomine Hcl 10 Mg Cap) 10 mg PO TID PRN PRN Reason: Abdominal Pain Stop: 11/21/22 02:18 Doxycycline Hyclate (Doxycycline Hyclate 100 Mg Cap) 100 mg PO BID@0700,1900 [facility] Stop: 10/29/22 07:29 Last Admin: 10/22/22 18:33 Dose: 100 mg Escitalopram Oxalate (Escitalopram Oxalate 20 Mg Tab) 20 mg PO QAM [facility] Stop: 11/21/22 08:59 Last Admin: 10/22/22 07:35 Dose: 20 mg Fentanyl (Fentanyl 25 Mcg/Hr Tdsy) 25 mcg TD Q72H [facility] Stop: 11/05/22 02:59 Last Admin: 10/22/22 03:34 Dose: 25 mcg Flecainide Acetate (Flecainide Acetate 100 Mg Tablet) 50 mg PO AMHS [facility] Stop: 11/21/22 08:59 Last Admin: 10/22/22 07:35 Dose: 50 mg Heparin Sodium (Porcine) (Heparin Sod 5,000 Unit/0.5 Ml Vial) 5,000 units SQ Q8 [facility] Stop: 11/21/22 05:59 Last Admin: 10/22/22 16:11 Dose: Not Given Hydrochlorothiazide (Hydrochlorothiazide 25 Mg Tab) 12.5 mg PO QAM [facility] Stop: 11/21/22 08:59 Last Admin: 10/22/22 07:35 Dose: 12.5 mg Hydroxyzine HCl (Hydroxyzine Hcl 25 Mg Tab) 25 mg PO HS PRN PRN Reason: Itching Stop: 11/21/22 02:18 Dextrose/Sodium Chloride (D5w And Nss) 1,000 mls @ 75 mls/hr IV .[id number] [facility] Stop: 10/23/22 04:58 Last Infusion: 10/22/22 19:00 Dose: 75 mls/hr Dexamethasone 6 mg/ Syringe 1.5 mls @ 1 mls/min IV Q24H [facility] Stop: 11/01/22 10:59 Last Admin: 10/22/22 06:23 Dose: 1 mls/min Famotidine 20 mg/ Syringe 5 mls @ 2.5 mls/min IV BID [facility] Stop: 11/21/22 20:59 Levothyroxine Sodium (Levothyroxine Sodium 50 Mcg Tablet) 50 mcg PO Q48H [facility] Stop: 11/21/22 06:29 Last Admin: 10/22/22 06:22 Dose: 50 mcg Levothyroxine Sodium (Levothyroxine Sodium 75 Mcg Tablet) 75 mcg PO Q48H [facility] Stop: 11/22/22 06:29 Lorazepam (Lorazepam 0.5 Mg Tab) 0.5 mg PO TID PRN PRN Reason: Anxiety Stop: 11/21/22 02:18 Losartan Potassium (Losartan Potassium 50 Mg Tab) 50 mg PO QAM [facility] Stop: 11/21/22 08:59 Last Admin: 10/22/22 07:34 Dose: 50 mg Meclizine HCl (Meclizine Hcl 25 Mg Tab) 25 mg PO TID PRN PRN Reason: Dizziness Stop: 11/21/22 02:18 Miscellaneous (Order Awaiting Action: Armodafinil [Nuvigil] 250 Mg Tablet) 1 each N/A QS [facility] Stop: 11/21/22 07:59 Last Admin: 10/22/22 16:12 Dose: Not Given Miscellaneous (Check Fentanyl Patch Placement) 1 each N/A QS [facility] Stop: 11/21/22 07:59 Last Admin: 10/22/22 16:11 Dose: 1 each Miscellaneous (Fentanyl Patch Remove & Waste) 1 each N/A Q72H [facility] Stop: 11/21/22 02:58 Last Admin: 10/22/22 03:35 Dose: 1 each Morphine Sulfate (Morphine Sulfate 4 Mg/Ml 1 Ml Carp\Vial) 3 mg IV Q4H PRN PRN Reason: Severe Pain (Scale 7, 8, 9,10) Stop: 11/05/22 02:18 Multivitamins/Minerals (Cerovite Adv Formula Tab) 1 tab PO DAILY [facility] Stop: 11/21/22 08:59 Last Admin: 10/22/22 07:35 Dose: 1 tab Ondansetron HCl (Ondansetron Inj 2 Mg/Ml 2 Ml Vial) 4 mg IV Q6H PRN PRN Reason: Nausea Stop: 11/21/22 02:18 Last Admin: 10/22/22 18:51 Dose: 4 mg Pantoprazole Sodium (Pantoprazole 40 Mg Tab) 40 mg PO AMHS [facility] Stop: 11/21/22 08:59 Last Admin: 10/22/22 07:35 Dose: 40 mg Polyethylene Glycol (Polyethylene (Miralax) 17 Gm Pack) 17 gm PO DAILY PRN PRN Reason: Constipation Stop: 11/21/22 02:18 (5) Vomiting Nausea presence: with nausea Vomiting type: unspecified Qualified Code(s): R11.2 - Nausea with vomiting, unspecified
[2022-10-22] MEDS: FAMOTIDINE 20 MG in SYRINGE 3 ML IV SCH (19:55)
[2022-10-23] MEDS: LEVOTHYROXINE SODIUM 75 MCG TABLET PO SCH (05:55)
[2022-10-23] MEDS: HEPARIN SOD 5,000 UNIT/0.5 ML VIAL SQ SCH ×3 (05:55→21:47)
[2022-10-23] MEDS: DOXYCYCLINE HYCLATE 100 MG CAP PO SCH ×2 (06:14→18:19)
[2022-10-23 07:18] LABS: Hematocrit (blood only) 34.2 % (37.0-47.0); Hemoglobin 11.6 g/dl (12.0-16.0); Mean Corpuscular Hemoglobin 32.3 pg (25.0-34.0); Mean Corpuscular Hgb Conc 33.9 g/dL (32.0-36.0); Mean Corpuscular Volume 95.3 fL (80.0-100.0); Mean Platelet Volume 9.1 fL (9.4-12.4); Platelet Count 137 K/uL (130-400); RDW Coefficient of Variation 13.2 % (11.5-14.5); RDW Standard Deviation 46.8 fL (36.4-46.3); Red Blood Count 3.59 M/uL (4.20-5.40); White Blood Count 3.37 K/ul (4.8-10.8)
[2022-10-23 07:45] LABS: Albumin Globulin Ratio 1.3 (0.9-2); Albumin Level 2.9 gm/dl (3.4-5.0); BUN Creatinine Ratio 23.8 (10-20); Bilirubin,Total 0.2 mg/dl (0.2-1.0); Calcium 7.8 mg/dl (8.5-10.1); Creatinine Clr Calc Pharmacy 40.3 ml/min; Est GFR (African American) 76.6 ml/min; Est GFR (Non-African American) 66.1 ml/min; Globulin 2.3 gm/dl (2.5-4.0); Magnesium 1.6 mg/dl (1.7-2.4); Phosphorus 2.4 mg/dl (2.5-4.9); Potassium 3.5 mmol/L (3.5-5.1); Total Protein 5.2 gm/dl (6.0-8.3)
[2022-10-23] MEDS: HYDROcodone/ACETAMINOPHEN 10/325 TAB PO PRN (08:16)
[2022-10-23] MEDS: FAMOTIDINE 20 MG in SYRINGE 3 ML IV SCH (08:17)
[2022-10-23] MEDS: dexAMETHasone 6 MG in SYRINGE 0 ML IV SCH (08:17)
[2022-10-23] MEDS: PANTOprazole 40 MG TAB PO SCH ×2 (08:17→21:47)
[2022-10-23] MEDS: hydroCHLOROthiazide 25 MG TAB PO SCH (08:18)
[2022-10-23] MEDS: CEROVITE ADV FORMULA TAB PO SCH (08:18)
[2022-10-23] MEDS: CHECK fentaNYL PATCH PLACEMENT SCH ×2 (08:19→16:10)
[2022-10-23] MEDS: ESCITALOPRAM OXALATE 20 MG TAB PO SCH (08:19)
[2022-10-23] MEDS: FLECAINIDE ACETATE 100 MG TABLET PO SCH ×2 (08:19→21:47)
[2022-10-23] MEDS: LOSARTAN POTASSIUM 50 MG TAB PO SCH (08:19)
[2022-10-23] MEDS ORDERED: MAGNESIUM SULFATE / D5W 1 GM/100 ML BAG IV ONE (10:06)
--- NOTE | 2022-10-23 18:35 | Hospitalist Progress Note ---
Date of Service October 23, 2022 Assessment & Plan (1) COVID-19: (2) Elevated troponin: (3) Diffuse abdominal pain: (4) Precordial chest pain: (5) Vomiting: Plan: Patient is a 81 yr female who presents with COVID. COVID 19 Pneumonia COVID vaccinated and boosted twice per patient Mild troponin elevation likely secondary to above Diarrhea likely secondary to above --CT chest:Subtle airspace opacities bilaterally are most consistent with atypical infection. --ECHO: Left ventricle is normal in size. Mild concentric LVH. Left ventricle wall motion is normal. EF 60 to 65%. Grade 1 diastolic dysfunction. Aortic valve sclerosis mild, without significant aortic valve stenosis. Trace mitral regurgitation. Mild tricuspid regurgitation. Check procalcitonin, CRP Stool studies if recurrence of diarrhea No indication for remdesivir given onset of symptoms Continue dexamethasone, doxycycline Saturating well on room air Continue isolation precautions PT/OT Left renal lesion CT ABD:No acute abnormality in the abdomen or pelvis on noncontrast examination. Colonic diverticulosis without evidence of acute diverticulitis. Indeterminate 10 mm left renal lesion. This can be evaluated with MRI as clinically. Needs follow-up as outpatient Hypomagnesemia Replete electrolytes as needed ARTHUR on CPAP H/O COPD On chronic supplemental oxygen at bedtime Continue Nebs Paroxysmal atrial fibrillation On flecainide Not on anticoagulation secondary to GI bleed Hypertension Continue losartan, HCTZ Rheumatoid arthritis on Humira Depression on Lexapro. Hypothyroidism On levothyroxine GERD H/O Hiatal hernia Continue PPI Chronic diastolic congestive heart failure Monitor volume status Continue home diuretic H/O scoliosis, fibromyalgia S/P spinal cord stimulator placement by Dr. Healy Stimulator lead displacement Needs follow-up with Dr. Healy upon discharge DVT Px: Heparin SQ Code Status: Full Code Admission and Anticipated Discharge Date Admission Date: October 21, 2022 Subjective Patient is seen and examined at bedside States having chronic back pain secondary to scoliosis, fibromyalgia Also reports sore throat, headache Has chronic neuropathy symptoms Also reports nausea but no vomiting Denies cough, dyspnea, chest pain, dizziness, abdominal pain, diarrhea No other complaints Saturating well on room air Review of Systems Review of Systems: All systems reviewed & are unremarkable except as noted in Subjective Physical Exam Physical Exam: Physical Exam: Vitals signs as noted above General Appearance:Moderately built and nourished, no apparent distress Head: normocephalic, Atraumatic Eyes: normal inspection, EOMI Neck: supple, Trachea midline Respiratory/Chest: Decreased breath sounds, CTA, No accessory muscle use Cardiovascular: S1, S2, No murmur Abdomen/GI:Soft, Non tender, Bowel sounds present Extremities/Musculoskeletal:normal inspection, no edema Neurologic/Psych:AAOX3, grossly no focal neurological deficits Skin: normal color, warm Results & Data Results & Data Vital Signs (Past 12 Hours) Vital Signs Temp Pulse Pulse Resp BP Pulse Ox O2 Del Method 10/23/22 16:27 65 10/23/22 12:00 36.7 C 66 18 129/76 95 Room Air 10/23/22 10:48 Room Air 10/23/22 07:39 36.7 C 60 18 109/64 94 Room Air 10/23/22 07:27 61 Laboratory Results Short CBC 10/23/22 Range/Units 06:36 WBC 3.37 L (4.8-10.8) K/ul Hgb 11.6 L D (12.0-16.0) g/dl Hct 34.2 L (37.0-47.0) % Plt Count 137 (130-400) K/uL BMP 10/23/22 06:36 Sodium 142 Potassium 3.5 Chloride 108 H Carbon Dioxide 30 BUN 20 Creatinine 0.84 D Glucose 96 Calcium 7.8 L Liver Function 10/23/22 Range/Units 06:36 Total Bilirubin 0.2 (0.2-1.0) mg/dl AST 28 (13-39) U/L ALT 21 (7-52) U/L Alkaline Phosphatase 44 (34-104) U/L Albumin 2.9 L (3.4-5.0) gm/dl (5) Vomiting Nausea presence: with nausea Vomiting type: unspecified Qualified Code(s): R11.2 - Nausea with vomiting, unspecified
[2022-10-23] MEDS: FAMOTIDINE 20 MG TAB PO SCH (21:47)
[2022-10-24] MEDS: CHECK fentaNYL PATCH PLACEMENT SCH ×3 (00:22→15:15)
[2022-10-24] MEDS: LEVOTHYROXINE SODIUM 50 MCG TABLET PO SCH (05:28)
[2022-10-24] MEDS: HEPARIN SOD 5,000 UNIT/0.5 ML VIAL SQ SCH ×3 (05:28→21:33)
[2022-10-24] MEDS: HYDROcodone/ACETAMINOPHEN 10/325 TAB PO PRN ×2 (05:43→22:14)
[2022-10-24 08:03] LABS: Hematocrit (blood only) 34.4 % (37.0-47.0); Hemoglobin 11.9 g/dl (12.0-16.0); Mean Corpuscular Hemoglobin 32.1 pg (25.0-34.0); Mean Corpuscular Hgb Conc 34.6 g/dL (32.0-36.0); Mean Corpuscular Volume 92.7 fL (80.0-100.0); Platelet Count 154 K/uL (130-400); RDW Coefficient of Variation 13.3 % (11.5-14.5); RDW Standard Deviation 45.6 fL (36.4-46.3); Red Blood Count 3.71 M/uL (4.20-5.40); White Blood Count 4.97 K/ul (4.8-10.8)
[2022-10-24] MEDS: FAMOTIDINE 20 MG TAB PO SCH ×2 (08:14→21:33)
[2022-10-24] MEDS: PANTOprazole 40 MG TAB PO SCH ×2 (08:14→21:33)
[2022-10-24] MEDS: FLECAINIDE ACETATE 100 MG TABLET PO SCH ×2 (08:14→21:32)
[2022-10-24] MEDS: CEROVITE ADV FORMULA TAB PO SCH (08:15)
[2022-10-24] MEDS: hydroCHLOROthiazide 25 MG TAB PO SCH (08:15)
[2022-10-24] MEDS: DOXYCYCLINE HYCLATE 100 MG CAP PO SCH ×2 (08:15→18:37)
[2022-10-24] MEDS: ESCITALOPRAM OXALATE 20 MG TAB PO SCH (08:16)
[2022-10-24] MEDS: dexAMETHasone 6 MG in SYRINGE 0 ML IV SCH (08:16)
[2022-10-24] MEDS: LOSARTAN POTASSIUM 50 MG TAB PO SCH (08:16)
[2022-10-24 08:21] LABS: Anion Gap 7 (3-11); BUN Creatinine Ratio 26.7 (10-20); Blood Urea Nitrogen 20 mg/dl (6-23); C Reactive Protein < 0.50 mg/dl (0-0.5); Carbon Dioxide 29 mmol/L (21-32); Chloride 105 mmol/L (98-107); Creatinine Clr Calc Pharmacy 45.1 ml/min; Est GFR (African American) 87.9 ml/min; Est GFR (Non-African American) 75.8 ml/min; Glucose 84 mg/dl (70-99(Fasting)); Magnesium 1.7 mg/dl (1.7-2.4); Potassium 3.4 mmol/L (3.5-5.1); Sodium 141 mmol/L (136-145)
[2022-10-24] MEDS ORDERED: MAGNESIUM SULFATE / D5W 1 GM/100 ML BAG IV ONE (09:07)
[2022-10-24] MEDS ORDERED: POTASSIUM CHLORIDE CRTAB 20 MEQ TABCR PO ONE (09:07)
[2022-10-24] MEDS ORDERED: ALUMINUM/MAGNESIUM/SIMETH (MAALOX MAX) 30 ML UDC PO PRN (10:36)
--- NOTE | 2022-10-24 17:20 | Hospitalist Progress Note ---
Date of Service October 24, 2022 Assessment & Plan (1) COVID-19: (2) Elevated troponin: (3) Diffuse abdominal pain: (4) Precordial chest pain: (5) Vomiting: Plan: Patient is a 81 yr female who presents with COVID. COVID 19 Pneumonia COVID vaccinated and boosted twice per patient Mild troponin elevation likely secondary to above Diarrhea likely secondary to above --CT chest:Subtle airspace opacities bilaterally are most consistent with atypical infection. --ECHO: Left ventricle is normal in size. Mild concentric LVH. Left ventricle wall motion is normal. EF 60 to 65%. Grade 1 diastolic dysfunction. Aortic valve sclerosis mild, without significant aortic valve stenosis. Trace mitral regurgitation. Mild tricuspid regurgitation. Check procalcitonin, CRP Stool studies if recurrence of diarrhea No indication for remdesivir given onset of symptoms Continue dexamethasone, doxycycline Saturating well on room air Continue isolation precautions PT/OT eval: Return home Likely discharge home tomorrow if remains stable Left renal lesion CT ABD:No acute abnormality in the abdomen or pelvis on noncontrast examination. Colonic diverticulosis without evidence of acute diverticulitis. Indeterminate 10 mm left renal lesion. This can be evaluated with MRI as clinically. Needs follow-up as outpatient Hypomagnesemia Hypokalemia Replete electrolytes as needed ARTHUR on CPAP H/O COPD On chronic supplemental oxygen at bedtime Continue Nebs Paroxysmal atrial fibrillation On flecainide Not on anticoagulation secondary to GI bleed Hypertension Continue losartan, HCTZ Rheumatoid arthritis on Humira Depression on Lexapro. Hypothyroidism On levothyroxine GERD H/O Hiatal hernia Continue PPI Chronic diastolic congestive heart failure Monitor volume status Continue home diuretic H/O scoliosis, fibromyalgia S/P spinal cord stimulator placement by Dr. Healy Stimulator lead displacement Needs follow-up with Dr. Healy upon discharge DVT Px: Heparin SQ Code Status: Full Code Admission and Anticipated Discharge Date Admission Date: October 21, 2022 Subjective Patient is seen and examined at bedside Reports chronic back pain secondary to scoliosis, fibromyalgia Less sore throat, headache today Diarrhea resolved Reports heartburn earlier today Denies cough, dyspnea, chest pain, dizziness, abdominal pain, diarrhea Saturating well on room air Feels weak and tired, poor appetite Review of Systems Review of Systems: All systems reviewed & are unremarkable except as noted in Subjective Physical Exam Physical Exam: Physical Exam: Vitals signs as noted above General Appearance:Moderately built and nourished, no apparent distress Head: normocephalic, Atraumatic Eyes: normal inspection, EOMI Neck: supple, Trachea midline Respiratory/Chest: Decreased breath sounds, CTA, No accessory muscle use Cardiovascular: S1, S2, No murmur Abdomen/GI:Soft, Non tender, Bowel sounds present Extremities/Musculoskeletal:normal inspection, no edema Neurologic/Psych:AAOX3, grossly no focal neurological deficits Skin: normal color, warm Results & Data Results & Data Vital Signs (Past 12 Hours) Vital Signs Temp Pulse Pulse Resp BP Pulse Ox O2 Del Method 10/24/22 15:06 60 10/24/22 14:45 36.5 C 70 18 153/83 H 93 Room Air 10/24/22 12:14 36.7 C 61 18 112/60 92 Room Air 10/24/22 08:51 36.9 C 60 18 130/71 94 Room Air 10/24/22 08:36 60 Laboratory Results Short CBC 10/24/22 Range/Units 07:16 WBC 4.97 (4.8-10.8) K/ul Hgb 11.9 L (12.0-16.0) g/dl Hct 34.4 L (37.0-47.0) % Plt Count 154 (130-400) K/uL BMP 10/24/22 07:16 Sodium 141 Potassium 3.4 L Chloride 105 Carbon Dioxide 29 BUN 20 Creatinine 0.75 Glucose 84 Calcium 8.0 L (5) Vomiting Nausea presence: with nausea Vomiting type: unspecified Qualified Code(s): R11.2 - Nausea with vomiting, unspecified
[2022-10-25] MEDS: CHECK fentaNYL PATCH PLACEMENT SCH ×2 (00:33→07:49)
[2022-10-25] MEDS: fentaNYL 25 MCG/HR TDSY TD SCH (05:35)
[2022-10-25] MEDS: LEVOTHYROXINE SODIUM 75 MCG TABLET PO SCH (05:35)
[2022-10-25] MEDS: HEPARIN SOD 5,000 UNIT/0.5 ML VIAL SQ SCH ×2 (05:35→14:56)
[2022-10-25 07:34] LABS: Hematocrit (blood only) 35.9 % (37.0-47.0); Hemoglobin 12.5 g/dl (12.0-16.0); Mean Corpuscular Hemoglobin 32.3 pg (25.0-34.0); Mean Corpuscular Hgb Conc 34.8 g/dL (32.0-36.0); Mean Corpuscular Volume 92.8 fL (80.0-100.0); Mean Platelet Volume 8.9 fL (9.4-12.4); Platelet Count 160 K/uL (130-400); RDW Coefficient of Variation 13.2 % (11.5-14.5); RDW Standard Deviation 44.9 fL (36.4-46.3); Red Blood Count 3.87 M/uL (4.20-5.40); White Blood Count 6.55 K/ul (4.8-10.8)
[2022-10-25] MEDS: DOXYCYCLINE HYCLATE 100 MG CAP PO SCH (07:46)
[2022-10-25] MEDS: CEROVITE ADV FORMULA TAB PO SCH (08:06)
[2022-10-25] MEDS: dexAMETHasone 6 MG in SYRINGE 0 ML IV SCH (08:06)
[2022-10-25] MEDS: PANTOprazole 40 MG TAB PO SCH (08:06)
[2022-10-25] MEDS: FAMOTIDINE 20 MG TAB PO SCH (08:07)
[2022-10-25] MEDS: FLECAINIDE ACETATE 100 MG TABLET PO SCH (08:07)
[2022-10-25] MEDS: hydroCHLOROthiazide 25 MG TAB PO SCH (08:08)
[2022-10-25] MEDS: ESCITALOPRAM OXALATE 20 MG TAB PO SCH (08:08)
[2022-10-25] MEDS: LOSARTAN POTASSIUM 50 MG TAB PO SCH (08:08)
[2022-10-25 08:10] LABS: BUN Creatinine Ratio 30.4 (10-20); Calcium 8.4 mg/dl (8.6-10.3); Creatinine Clr Calc Pharmacy 42.8 ml/min; Est GFR (African American) 82.5 ml/min; Est GFR (Non-African American) 71.2 ml/min; Magnesium 1.9 mg/dl (1.7-2.4); Potassium 4.2 mmol/L (3.5-5.1)
[2022-10-25] MEDS ORDERED: COUGH DROP (SUGAR FREE) LOZ 24 LOZ/1 BOX BUCCAL PRN (08:18)
--- NOTE | 2022-10-25 13:13 | Hospitalist Progress Note ---
Date of Service October 25, 2022 Assessment & Plan (1) COVID-19: (2) Elevated troponin: (3) Diffuse abdominal pain: (4) Precordial chest pain: (5) Vomiting: Plan: Patient is a 81 yr female who presents with COVID. COVID 19 Pneumonia COVID vaccinated and boosted twice per patient Mild troponin elevation likely secondary to above Diarrhea likely secondary to above --CT chest:Subtle airspace opacities bilaterally are most consistent with atypical infection. --ECHO: Left ventricle is normal in size. Mild concentric LVH. Left ventricle wall motion is normal. EF 60 to 65%. Grade 1 diastolic dysfunction. Aortic valve sclerosis mild, without significant aortic valve stenosis. Trace mitral regurgitation. Mild tricuspid regurgitation. Procalcitonin < 0.05 CRP < 0.05 Diarrhea resolved No indication for remdesivir given onset of symptoms Continue dexamethasone, doxycycline Saturating well on room air Continue isolation precautions PT/OT eval: Return home Plan to discharge home today Left renal lesion --CT ABD:No acute abnormality in the abdomen or pelvis on noncontrast examination. Colonic diverticulosis without evidence of acute diverticulitis. Indeterminate 10 mm left renal lesion. This can be evaluated with MRI as clinically. Needs follow-up as outpatient Hypomagnesemia Hypokalemia Replete electrolytes as needed ARTHUR on CPAP H/O COPD On chronic supplemental oxygen at bedtime Continue Nebs Paroxysmal atrial fibrillation On flecainide Not on anticoagulation secondary to GI bleed Hypertension Continue losartan, HCTZ Rheumatoid arthritis on Humira Depression on Lexapro. Hypothyroidism On levothyroxine GERD H/O Hiatal hernia Continue PPI Chronic diastolic congestive heart failure Monitor volume status Continue home diuretic H/O scoliosis, fibromyalgia S/P spinal cord stimulator placement by Dr. Healy Stimulator lead displacement Needs follow-up with Dr. Healy upon discharge DVT Px: Heparin SQ Code Status: Full Code Disposition Home today Admission and Anticipated Discharge Date Admission Date: October 21, 2022 Subjective Patient is seen and examined at bedside Still has sore throat No significant cough Heart burn resolved Denies chest/abd pain, nausea, vomiting Has chronic back pain secondary to scoliosis, fibromyalgia Prefers to be discharged home today Review of Systems Review of Systems: All systems reviewed & are unremarkable except as noted in Subjective Physical Exam Physical Exam: Physical Exam: Vitals signs as noted above General Appearance:Moderately built and nourished, no apparent distress Head: normocephalic, Atraumatic Eyes: normal inspection, EOMI Neck: supple, Trachea midline Respiratory/Chest: Decreased breath sounds, CTA, No accessory muscle use Cardiovascular: S1, S2, No murmur Abdomen/GI:Soft, Non tender, Bowel sounds present Extremities/Musculoskeletal:normal inspection, no edema Neurologic/Psych:AAOX3, grossly no focal neurological deficits Skin: normal color, warm Results & Data Results & Data Vital Signs (Past 12 Hours) Vital Signs Temp Pulse Pulse Resp BP BP Pulse Ox 10/25/22 07:00 60 10/25/22 12:01 36.6 C 61 20 122/74 93 10/25/22 09:03 36.7 C 61 18 106/69 92 10/25/22 04:36 36.6 C 67 18 154/85 H 92 O2 Del Method 10/25/22 07:00 10/25/22 12:01 Room Air 10/25/22 09:03 Room Air 10/25/22 04:36 Room Air Laboratory Results Short CBC 10/25/22 Range/Units 07:20 WBC 6.55 (4.8-10.8) K/ul Hgb 12.5 (12.0-16.0) g/dl Hct 35.9 L (37.0-47.0) % Plt Count 160 (130-400) K/uL BMP 10/25/22 07:20 Sodium 139 Potassium 4.2 D Chloride 104 Carbon Dioxide 32 BUN 24 H Creatinine 0.79 Glucose 89 Calcium 8.4 L (5) Vomiting Nausea presence: with nausea Vomiting type: unspecified Qualified Code(s): R11.2 - Nausea with vomiting, unspecified
[2022-10-25] MEDS ORDERED: CHLORASEPTIC 1.4% SOLN 180 ML BTL MT SCH (14:00)
--- NOTE | 2022-10-25 14:22 | Discharge Summary ---
Date of Service October 25, 2022 Admission HPI Per Admitting Provider CHIEF COMPLAINT: Total body aches, chest pain, belly pain, nausea and found to have COVID. HISTORY OF PRESENT ILLNESS: A 81-year-old female with past medical history significant for diverticulosis, fibromyalgia, osteoarthritis, osteoporosis, hypothyroidism, obstructive sleep apnea, not on CPAP, hypertension, hyperlipidemia, paroxysmal atrial fibrillation, currently not on anticoagulation due to concern for GI bleed, tachybrady syndrome, status post dual chamber pacemaker in 2020, history of COPD, hypothyroidism, GERD, ileocecal valve syndrome, urinary incontinence, chronic kidney disease stage III, history of rheumatoid arthritis, depression, somatization disorder, status post insertion of spinal cord stimulator, history of partial colectomy, presents with ongoing symptoms of body aches, weakness for the last 3 weeks. The patient says on 07/12/2022, she fell and she broke one of her leads in the spinal stimulator and since then she is having back pains and she is supposed to replace it soon, but she also had poor appetite, some nausea, dry heaves. Today she has lot of pain in the right side lower chest, which is also tender on palpation, which brought her to the hospital and found to have COVID. Her oxygen saturation was 89%, currently on oxygen nasal cannula, she is saturating okay. She is afebrile. Occasional cough. Has lot of sore throat. No runny nose. Has some headache, no blurred visions. Has some diarrhea. No blood or black stools. Normal bladder movements. No swelling in the legs. Currently, resting comfortably. Admission Exam Per Admitting Provider PHYSICAL EXAMINATION: GENERAL: The patient is of moderate build, not in acute distress. VITAL SIGNS: Temperature 37.1, pulse 61, respiratory rate 18, blood pressure 118/62, oxygen 89% on room air. HEENT: Pupils equal, round and reactive to light. Oral mucosa dry. NECK: No JVD. No neck masses. CARDIOVASCULAR: S1 and S2 heard. Regular rate and rhythm. No murmur, no gallop. RESPIRATORY SYSTEM: Normal AP diameter. No accessory muscle use. No wheezing or crackles. Some point tenderness in the right lower chest. ABDOMEN: Soft, bowel sounds present. Some right upper quadrant tenderness present. No guarding, no rigidity, no distention. CENTRAL NERVOUS SYSTEM: Alert and oriented. Speech is clear. No facial droop. Obeys simple commands. Moves extremities. EXTREMITIES: No edema, no erythema. Principal Diagnosis COVID 19 Pneumonia Left Kidney lesion Hypomagnesemia Hypokalemia Discharge Data Allergies Allergy/AdvReac Type Severity Reaction Status Date / Time bee venom protein (honey bee) Allergy Intermediate "SWELLED Verified 10/21/22 22:33 ALL UP" Iodinated Contrast Media Allergy Intermediate PASSED Verified 10/21/22 22:33 OUT-BODY FELT COLD ALL OVER venlafaxine Allergy Unknown Unknown Verified 10/21/22 22:33 gabapentin AdvReac Intermediate HORRIBLE Verified 10/21/22 22:33 HEADACHES rosuvastatin [From Crestor] AdvReac Intermediate PAIN IN Verified 10/21/22 22:33 JOINTS atorvastatin AdvReac Mild PAIN IN Verified 10/21/22 22:33 JOINTS shellfish derived AdvReac Mild Headache Verified 10/21/22 22:33 Consultations 10/21/22 21:35 ED Decision to Admit Stat Procedures Performed Laboratory Results WBC 6.55 K/ul (4.8-10.8) 10/25/22 07:20 RBC 3.87 M/uL (4.20-5.40) L 10/25/22 07:20 Hgb 12.5 g/dl (12.0-16.0) 10/25/22 07:20 Hct 35.9 % (37.0-47.0) L 10/25/22 07:20 MCV 92.8 fL (80.0-100.0) 10/25/22 07:20 MCH 32.3 pg (25.0-34.0) 10/25/22 07:20 MCHC 34.8 g/dL (32.0-36.0) 10/25/22 07:20 RDW Std Deviation 44.9 fL (36.4-46.3) 10/25/22 07:20 RDW Coeff of Kim 13.2 % (11.5-14.5) 10/25/22 07:20 Plt Count 160 K/uL (130-400) 10/25/22 07:20 MPV 8.9 fL (9.4-12.4) L 10/25/22 07:20 Immature Gran % (Auto) 0.7 % 10/21/22 18:33 Neut % (Auto) 70.0 % 10/21/22 18:33 Lymph % (Auto) 19.3 % 10/21/22 18:33 Allen % (Auto) 9.7 % 10/21/22 18:33 Eos % (Auto) 0.0 % 10/21/22 18:33 Baso % (Auto) 0.3 % 10/21/22 18:33 Neut # (Auto) 4.10 K/uL (1.40-6.50) 10/21/22 18:33 Lymph # (Auto) 1.13 K/uL (1.2-3.4) L 10/21/22 18:33 Allen # (Auto) 0.57 K/uL (0.11-0.59) 10/21/22 18:33 Eos # (Auto) 0.00 K/uL (0-0.50) 10/21/22 18:33 Baso # (Auto) 0.02 K/uL (0-0.2) 10/21/22 18:33 Immature Gran # (Auto) 0.04 K/uL (0.01-0.20) 10/21/22 18:33 PT 9.9 Seconds (9.0-12.0) 10/21/22 18:33 INR 0.9 (0.9-1.1) 10/21/22 18:33 APTT 27.0 Seconds (21.0-31.0) 10/21/22 18:33 PTT Ratio 1.0 10/21/22 18:33 Sodium 139 mmol/L (136-145) 10/25/22 07:20 Potassium 4.2 mmol/L (3.5-5.1) D 10/25/22 07:20 Chloride 104 mmol/L (98-107) 10/25/22 07:20 Carbon Dioxide 32 mmol/L (21-32) 10/25/22 07:20 Anion Gap 3 (3-11) 10/25/22 07:20 BUN 24 mg/dl (6-23) H 10/25/22 07:20 Creatinine 0.79 mg/dl (0.6-1.2) 10/25/22 07:20 Est Cr Clr Drug Dosing 42.8 ml/min 10/25/22 07:20 Est GFR ( Amer) 82.5 ml/min 10/25/22 07:20 Est GFR (Non-Af Amer) 71.2 ml/min 10/25/22 07:20 BUN/Creatinine Ratio 30.4 (10-20) H 10/25/22 07:20 Glucose 89 mg/dl (70-99(Fasting)) 10/25/22 07:20 Calcium 8.4 mg/dl (8.6-10.3) L 10/25/22 07:20 Phosphorus 2.4 mg/dl (2.5-4.9) L 10/23/22 06:36 Magnesium 1.9 mg/dl (1.7-2.4) 10/25/22 07:20 Total Bilirubin 0.2 mg/dl (0.2-1.0) 10/23/22 06:36 AST 28 U/L (13-39) 10/23/22 06:36 ALT 21 U/L (7-52) 10/23/22 06:36 Alkaline Phosphatase 44 U/L (34-104) 10/23/22 06:36 Troponin I High Sens 39.7 pg/ml (0-14) H 10/22/22 05:28 C-Reactive Protein < 0.50 mg/dl (0-0.5) 10/24/22 07:16 B-Natriuretic Peptide 68 pg/ml (0-100) 10/21/22 18:33 Total Protein 5.2 gm/dl (6.0-8.3) L D 10/23/22 06:36 Albumin 2.9 gm/dl (3.4-5.0) L 10/23/22 06:36 Globulin 2.3 gm/dl (2.5-4.0) L 10/23/22 06:36 Albumin/Globulin Ratio 1.3 (0.9-2) 10/23/22 06:36 Lipase Cancelled 10/21/22 18:49 Procalcitonin < 0.05 ng/ml (0-0.5) 10/24/22 07:16 Urine Color Yellow 10/21/22 19:42 Urine Appearance Clear (Clear) 10/21/22 19:42 Urine pH 5.0 (4.5-7.5) 10/21/22 19:42 Ur Specific [place] 1.020 (1.000-1.030) 10/21/22 19:42 Urine Protein 1+ (Negative) H 10/21/22 19:42 Urine Glucose (UA) Negative (Negative) 10/21/22 19:42 Urine Ketones Negative (Negative) 10/21/22 19:42 Urine Blood Negative (Negative) 10/21/22 19:42 Urine Nitrite Negative (Negative) 10/21/22 19:42 Urine Bilirubin Negative (Negative) 10/21/22 19:42 Urine Urobilinogen Negative (Negative) 10/21/22 19:42 Ur Leukocyte Esterase Negative (Negative) 10/21/22 19:42 Urine WBC (Auto) 1-5 /hpf (0-5) 10/21/22 19:42 Urine RBC (Auto) 0-4 /hpf (0-4) 10/21/22 19:42 U Hyaline Cast (Auto) 5-10 /lpf (0-5) H 10/21/22 19:42 U Epithel Cells (Auto) 20-30 /lpf (0-5) H 10/21/22 19:42 Urine Bacteria (Auto) Negative (Negative) 10/21/22 19:42 SARS-CoV-2 (PCR) POSITIVE (Negative) A* 10/21/22 19:42 Influenza Type A (PCR) Negative (Neg) 10/21/22 19:42 Influenza Type B (PCR) Negative (Neg) 10/21/22 19:42 RSV (RT-PCR) Negative (Neg) 10/21/22 19:42 Impressions Chest X-Ray 10/21/22 18:32 XR chest 1V portable HISTORY: 81 years-old Female Dyspnea acute shortness of breath COMPARISON: Chest CT 10/22/2022 TECHNIQUE: AP view of the chest FINDINGS: Cardiac silhouette is enlarged. Left subclavian pacer. No pneumothorax, pleural effusion or overt pulmonary edema. Subsegmental bibasilar consolidation. Mild ill-defined bilateral pulmonary opacities. Degenerative changes of the spine and right shoulder. Left shoulder arthroplasty. Surgical clips of the upper abdomen with stimulator lead overlying the midthoracic spine. IMPRESSION: 1. Cardiomegaly without overt pulmonary edema. 2. Mild ill-defined patchy bilateral opacities correlate with the groundglass densities seen on the comparison chest CT. Findings are suggestive of a mild nonspecific infectious or inflammatory pneumonitis such as viral pneumonia. ACT 112: Negative or not required by law. The above report was generated using voice recognition software. It may contain grammatical, syntax or spelling errors. Electronically signed by: Daniel Fitzgerald M.D. 10/22/2022 6:58 AM Abdomen/Pelvis CT 10/21/22 18:47 Exam(s): CT ABDOMEN + PELVIS Without Contrast EXAM: CT Abdomen and Pelvis Without Intravenous Contrast CLINICAL HISTORY: Reason for exam: pain, poss obstruc. TECHNIQUE: Axial computed tomography images of the abdomen and pelvis without intravenous contrast. Automated exposure control was utilized for the study. A dose lowering technique was utilized adhering to the principles of ALARA. COMPARISON: CT abdomen and pelvis 07/12/2022. FINDINGS: Lung bases: Atelectasis or scarring is seen in the lung bases. Mediastinum: Mild hiatal hernia. ABDOMEN: Liver: Unremarkable. Gallbladder and bile ducts: Cholecystectomy. No ductal dilation. Pancreas: Unremarkable. No ductal dilation. Spleen: Unremarkable. No splenomegaly. Adrenals: Unremarkable. No mass. Kidneys and ureters: Indeterminate 10 mm left renal lesion. No obstructing stones. No hydronephrosis. Stomach and bowel: Colonic diverticulosis without evidence of acute diverticulitis. Surgical clips in the stomach are again noted. No obstruction. PELVIS: Appendix: No findings to suggest acute appendicitis. Bladder: Unremarkable. No stones. Reproductive: Hysterectomy. ABDOMEN and PELVIS: Intraperitoneal space: Unremarkable. No free air. No significant fluid collection. Bones/joints: Severe scoliosis. Diffusely decreased osseous mineralization. Degenerative change in the spine. Severe degenerative change in the hips. Fusion of L5-S1. No acute fracture. No dislocation. Soft tissues: Battery pack overlying the left gluteus. Vasculature: Atherosclerotic Calcification in the Abdominal Aorta and Branches. No abdominal aortic aneurysm. Lymph nodes: Unremarkable. No enlarged lymph nodes. IMPRESSION: 1. No acute abnormality in the abdomen or pelvis on noncontrast examination. 2. Colonic diverticulosis without evidence of acute diverticulitis. 3. Indeterminate 10 mm left renal lesion. This can be evaluated with MRI as clinically. Electronically signed by: Gualberto Jama MD 10/21/22 21:[address] 10/22/22 02:19 Exam(s): CT CHEST Without Contrast EXAM: CT Chest Without Intravenous Contrast CLINICAL HISTORY: Covid. TECHNIQUE: Axial computed tomography images of the chest without intravenous contrast. Automated exposure control was utilized for the study. A dose lowering technique was utilized adhering to the principles of ALARA. COMPARISON: CT chest 07/12/2022. FINDINGS: Lungs: Bibasilar atelectasis. Subtle airspace opacities bilaterally are most consistent with atypical infection. Pleural space: Unremarkable. No pneumothorax. No significant effusion. Heart: Unremarkable. No cardiomegaly. No significant pericardial effusion. No significant coronary artery calcifications. Bones/joints: There are degenerative changes of the spine. No fracture. There is a reversed left shoulder arthroplasty. Stable chronic T10 compression fracture. No dislocation. Soft tissues: Unremarkable. Vasculature: Mild atherosclerosis. No thoracic aortic aneurysm. Lymph nodes: Unremarkable. No enlarged lymph nodes. IMPRESSION: Subtle airspace opacities bilaterally are most consistent with atypical infection. Electronically signed by: Laura Jorgensen MD 10/22/22 05:59 AM Ordered Studies 10/21/22 18:47 CT abd pelvis wo con Stat 10/22/22 02:19 CT chest diagnostic wo con Urgent Hospital Course (1) COVID-19: (2) Elevated troponin: (3) Diffuse abdominal pain: (4) Precordial chest pain: (5) Vomiting: Patient is a 81 yr female who presents with COVID. COVID 19 Pneumonia COVID vaccinated and boosted twice per patient Mild troponin elevation likely secondary to above Diarrhea likely secondary to above --CT chest:Subtle airspace opacities bilaterally are most consistent with atypical infection. --ECHO: Left ventricle is normal in size. Mild concentric LVH. Left ventricle wall motion is normal. EF 60 to 65%. Grade 1 diastolic dysfunction. Aortic valve sclerosis mild, without significant aortic valve stenosis. Trace mitral regurgitation. Mild tricuspid regurgitation. Procalcitonin < 0.05 CRP < 0.05 Diarrhea resolved No indication for remdesivir given onset of symptoms Continue dexamethasone, doxycycline Saturating well on room air Continue isolation precautions PT/OT eval: Return home Plan to discharge home today Left renal lesion --CT ABD:No acute abnormality in the abdomen or pelvis on noncontrast examination. Colonic diverticulosis without evidence of acute diverticulitis. Indeterminate 10 mm left renal lesion. This can be evaluated with MRI as clinically. Needs follow-up as outpatient Hypomagnesemia Hypokalemia Replete electrolytes as needed ARTHUR on CPAP H/O COPD On chronic supplemental oxygen at bedtime Continue Nebs Paroxysmal atrial fibrillation On flecainide Not on anticoagulation secondary to GI bleed Hypertension Continue losartan, HCTZ Rheumatoid arthritis on Humira Depression on Lexapro. Hypothyroidism On levothyroxine GERD H/O Hiatal hernia Continue PPI Chronic diastolic congestive heart failure Monitor volume status Continue home diuretic H/O scoliosis, fibromyalgia S/P spinal cord stimulator placement by Dr. Healy Stimulator lead displacement Needs follow-up with Dr. Healy upon discharge DVT Px: Heparin SQ Code Status: Full Code Disposition Home today Total Time Total Time Spent Total Time Spent (In Minutes): 50 minutes Discharge Plan Discharge Items Patient Disposition: Home - Self-Care Reason For Visit: COVID Discharge Diagnosis: COVID 19 Pneumonia Left Kidney lesion Hypomagnesemia Hypokalemia Condition on Discharge: Fair Activity: Per Instructions section Exercise/Sports: Wait until after follow-up appointment Non-emergency contact: Primary Care Provider and Urologist Call non-emergency contact if: you have any medication questions, your symptoms worsen, your pain is concerning for you and you have a fever Follow-up/Referrals: Ernestina Swanson, DO [Outside Practitioners] - (Date & Time 10/30/2022 10:10 AM Provider Marilynn Lay PA-C Department Family Medicine [facility] ) Diet: Heart Healthy Diet Texture: Easy to Chew Addtl Attending Provider Instructions: Follow-up with your primary care physician on 10/30/2022 10:10 AM as scheduled Follow-up with your urologist for further evaluation of the left kidney lesion as advised. --Complete the prednisone, doxycycline course as advised. Prednisone Taper Course: Take prednisone 20 mg daily for 2 days, then take 10 mg daily for 2 days and stop Seek immediate medical attention if your symptoms reoccur or worsen Please take all medications as instructed on discharge list below. Please call if you have any questions or problems. You can reach a [facility] hospitalist on duty at [facility] 24 hours a day by calling [phone] Home Isolation COVID-19 Instructions The following information about Home Isolation is from the CDC Website: https://www.cdc.gov/coronavirus/2019-ncov/hcp/jhrbpmpo-boohqtq-fvmgua.html Stay home except to get medical care People who are mildly ill with COVID-19 are able to isolate at home during their illness. You should restrict activities outside your home, except for getting medical care. Do not go to work, school, or public areas. Avoid using public transportation, ride-sharing, or taxis. Separate yourself from other people and animals in your home People: As much as possible, you should stay in a specific room and away from other people in your home. Also, you should use a separate bathroom, if available. Animals: You should restrict contact with pets and other animals while you are sick with COVID-19, just like you would around other people. Although there have not been reports of pets or other animals becoming sick with COVID-19, it is still recommended that people sick with COVID-19 limit contact with animals until more information is known about the virus. When possible, have another member of your household care for your animals while you are sick. If you are sick with COVID-19, avoid contact with your pet, including petting, snuggling, being kissed or licked, and sharing food. If you must care for your pet or be around animals while you are sick, wash your hands before and after you interact with pets and wear a face mask. Call ahead before visiting your doctor If you have a medical appointment, call the healthcare provider and tell them that you have or may have COVID-19. This will help the healthcare providers office take steps to keep other people from getting infected or exposed. Wear a face mask You should wear a face mask when you are around other people (e.g., sharing a room or vehicle) or pets and before you enter a healthcare providers office. If you are not able to wear a face mask (for example, because it causes trouble breathing), then people who live with you should not stay in the same room with you, or they should wear a face mask if they enter your room. Cover your coughs and sneezes Cover your mouth and nose with a tissue when you cough or sneeze. Throw used tissues in a lined trash can. Immediately wash your hands with soap and water for at least 20 seconds or, if soap and water are not available, clean your hands with an alcohol-based hand car ferry master that contains at least 60% alcohol. Clean your hands often Wash your hands often with soap and water for at least 20 seconds, especially after blowing your nose, coughing, or sneezing; going to the bathroom; and before eating or preparing food. If soap and water are not readily available, use an alcohol-based hand car ferry master with at least 60% alcohol, covering all surfaces of your hands and rubbing them together until they feel dry. Soap and water are the best option if hands are visibly dirty. Avoid touching your eyes, nose, and mouth with unwashed hands. Avoid sharing personal household items You should not share dishes, drinking glasses, cups, eating utensils, towels, or bedding with other people or pets in your home. After using these items, they s hould be washed thoroughly with soap and water. Clean all high-touch surfaces everyday High touch surfaces include counters, tabletops, doorknobs, bathroom fixtures, toilets, phones, keyboards, tablets, and bedside tables. Also, clean any surfaces that may have blood, stool, or body fluids on them. Use a household cleaning spray or wipe, according to the label instructions. Labels contain instructions for safe and effective use of the cleaning product including precautions you should take when applying the product, such as wearing gloves and making sure you have good ventilation during use of the product. Monitor your symptoms Seek prompt medical attention if your illness is worsening (e.g., difficulty breathing).Beforeseeking care, call your healthcare provider and tell them that you have, or are being evaluated for, COVID-19. Put on a face mask before you enter the facility. These steps will help the healthcare providers office to keep other people in the office or waiting room from getting infected or exposed. Ask your healthcare provider to call the local or state health department. Persons who are placed under active monitoring or facilitated self- monitoring should follow instructions provided by their local health department or occupational health professionals, as appropriate. When working with your local health department check their available hours. If you have a medical emergency and need to call 911, notify the dispatch personnel that you have, or are being evaluated for COVID-19. If possible, put on a face mask before emergency medical services arrive. Discontinuing home isolation Patients with confirmed COVID-19 should remain under home isolation precautions until the risk of secondary transmission to others is thought to be low. The decision to discontinue home isolation precautions should be made on a [id number] basis, in consultation with healthcare providers and state and local health departments. Pending Studies at Discharge: No Stand-Alone Forms: My [facility], Smoking Cessation Medications and DC Order Prescriptions: New doxycycline hyclate 100 mg Capsule 100 mg PO BID@0700,1900 Qty: 7 0RF Sore Throat (phenol) 1.4 % Aerosol,[place] 1 spray MT TID PRN (Reason: sore throat) Qty: 1 0RF famotidine 20 mg Tablet 20 mg PO BID Qty: 20 0RF prednisone 10 mg tablet 10 mg PO UD Qty: 6 0RF Rx Instructions: Take prednisone 20 mg daily for 2 days, then take 10 mg daily for 2 days and stop Continued armodafinil [Nuvigil] 250 mg Tablet 250 mg PO QAM calcium-vitamin D3-vitamin K [Viactiv] 650 mg-12.5 mcg-40 mcg Tablet,Chewable 2 tab PO DAILY hydrocodone-acetaminophen 10-325 mg Tablet 1 tab PO Q8 PRN (Reason: Pain) lorazepam 0.5 mg Tablet 0.5 mg PO TID PRN (Reason: Anxiety) meclizine 25 mg Tablet 25 mg PO TID PRN (Reason: Dizziness) pantoprazole 40 mg Tablet,Delayed Release (Dr/Ec) 40 mg PO AMHS hydroxyzine HCl 25 mg Tablet 25 - 50 mg PO HS PRN (Reason: Itching) levothyroxine 50 mcg Tablet 50 mcg PO Q2D Rx Instructions: ALTERNATE WITH 75MCG losartan 50 mg tablet 50 mg PO QAM PreserVision AREDS 2 Plus MV 200 mcg-15 mcg- 5 mg-1 mg Capsule 1 cap PO AMHS polyethylene glycol 3350 [Miralax] 17 gram powder in packet 17 g PO UD PRN (Reason: Constipation) flecainide 50 mg tablet 50 mg PO AMHS albuterol sulfate 90 mcg/actuation HFA aerosol inhaler 2 puff INHALATION QID PRN (Reason: Shortness Of Breath Or Wheezing) escitalopram oxalate 20 mg tablet 20 mg PO QAM levothyroxine 75 mcg Tablet 75 mcg PO Q2D Rx Instructions: ALTERNATE WITH 50MCG acetaminophen 325 mg Tablet 650 mg PO Q6H PRN (Reason: fever or pain) Qty: 100 0RF hydrochlorothiazide 12.5 mg capsule 12.5 mg PO QAM fentanyl 25 mcg/hr patch 72 hour 25 mcg transdermal Q72H Rx Instructions: took off today and didnt replace yet dicyclomine 10 mg capsule 10 mg PO TID PRN (Reason: Abdominal Pain) Humira 40 mg/0.8 mL Syringe Kit 40 mg SUBCUT Q7D Rx Instructions: sat Discharge Orders: Discharge Order (Routine); Ordered 10/25/22 Ordered By: Chad Bourgeois Admission Data Admit Date/Time: 10/21/22 23:52 Attending Provider: Chad Bourgeois Admit Provider: Cameron Grace Primary Care Provider: Ambrose Ribera Other Providers: Cameron Grace
[2022-10-25] MEDS: HYDROcodone/ACETAMINOPHEN 10/325 TAB PO PRN (15:59)
== END 2022-10-25 16:25 | disposition home or self-care (01) | DRG 177 ==
LOC: ED 18:06 → EDINP 23:52 → SUATTDRO 23:52 → 2N 10-22 02:19

== ENCOUNTER 2022-10-28 12:14 | Observation (INO) ==
[2022-10-28 13:19] LABS: Basophils # (auto) 0.04 K/uL (0-0.2); Basophils % (auto) 0.7 %; Eosinophils # (auto) 0.05 K/uL (0-0.50); Eosinophils % (auto) 0.9 %; Hematocrit (blood only) 47.1 % (37.0-47.0); Hemoglobin 16.2 g/dl (12.0-16.0); Immature Granulocytes # (auto) 0.27 K/uL (0.01-0.20); Immature Granulocytes % (auto) 4.7 %; Lymphocytes # (auto) 1.33 K/uL (1.2-3.4); Mean Corpuscular Hgb Conc 34.4 g/dL (32.0-36.0); Mean Corpuscular Volume 93.1 fL (80.0-100.0); Mean Platelet Volume 9.4 fL (9.4-12.4); Monocytes # (auto) 0.65 K/uL (0.11-0.59); Monocytes % (auto) 11.2 %; Neutrophils # (auto) 3.44 K/uL (1.40-6.50); Neutrophils % (auto) 59.5 %; Platelet Count 240 K/uL (130-400); RDW Coefficient of Variation 13.3 % (11.5-14.5); RDW Standard Deviation 45.1 fL (36.4-46.3); Red Blood Count 5.06 M/uL (4.20-5.40); White Blood Count 5.78 K/ul (4.8-10.8)
--- NOTE | 2022-10-28 13:35 | Emergency Department Note ---
Impression & Plan Acute dehydration, Weakness, Fatigue, Hypoxia, Body aches ED Provider Note NAME: INO ANDERSON AGE: 81 SEX: F : 1940 ARRIVES VIA: Ambulance INFORMANT: Patient, ED PROVIDER(S): Raul King MD CHIEF COMPLAINT: Pain, weakness, hypoxia MEDICAL DECISION MAKING: Patient does present due to concern for pain and associated weakness. IV was established blood work was obtained. EKG obtained along with a chest x-ray. The patient was ordered IV morphine. The patient's blood work shows a normal white count mild elevation in hemoglobin the patient did receive IV fluids. Platelet count is unremarkable. Kidney fu nction with creatinine 1.1. Electrolytes grossly unremarkable. Prerenal azotemia noted but patient did receive IV fluids. Mild elevation in troponin 18. The patient has had shortness of breath but this has been chronic in nature ever since she had COVID. Patient still COVID-positive today. The patient would like to explore rehab. I did speak with case management but she is unable to be placed today. I did speak the on-call hospitalist hospitalist service Jolene Mcpherson PA-C and the patient was admitted by Dr. Blackmon. Critical Care: I have personally spent 36 minutes of critical care time in direct management of this patient. This includes bedside care, interpretation of diagnostic studies, and testing, discussion with consultants, patient, and family members, and other require inpatient management activities. This 36 minutes is in excess of all separately billable procedures. Prior /Outside records reviewed: I did review the patient's most recent discharge summary from October 25. The patient had complained of nausea body aches and was found to have COVID at that time. Patient did have mild troponin elevation at that time thought secondary related to her COVID illness. Patient had received dexamethasone during her prior admission Differential diagnosis: Infection, dehydration, metabolic abnormality, hypo/hyperglycemia, electrolyte disturbance, anemia, hypoxia, cardiac sources, intracerebral event, toxicologic, neurologic, as well as other pathologies. Diagnostics, as interpreted by me: ECG: Sinus rhythm with occasional atrial paced complexes, rate of 60, normal intervals left axis deviation no ST elevations. Cardiac monitoring: An order was placed for continuous cardiac monitoring. The monitor shows a rate of 62 with sinus rhythm. Patient was placed on pulse oximetry Medical decision rules: none Imaging studies: See below HPI: Patient presents due to concern for weakness and fatigue with generalized body aches. The patient had been taking pain medication at home in addition to Tylenol but without improvement in symptoms. The patient was feeling short of breath and weak today EMS had found the patient was satting in the low 80s and was placed on supplemental oxygen. Patient does not smoke. Patient does not complain of chest pains but just diffuse overall body pains. No recent falls or trauma. The patient does live with her at home who also is getting over COVID illness. Daughter at bedside does not believe that she is capable of caring for herself or her and vice versa at home. They are open to the possibility of a rehab stay. Patient has had cough but it is nonproductive. Patient has had decreased p.o. intake and appetite. PAST MEDICAL HISTORY: See Below PAST SURGICAL HISTORY: See Below SOCIAL HISTORY: See Below HOME MEDICATIONS: See Below ALLERGIES: See Below VITALS: See Below PHYSICAL EXAMINATION: GENERAL: Mildly ill and fatigued in appearance, wearing glasses, nasal cannula in place EYE EXAM: Normal conjunctiva. PERRL, no anisocoria and EOM's grossly intact w/o pain. NECK: Supple, no nuchal rigidity, no adenopathy, non-tender. No signs of meningismus. FROM of the neck with good chin to chest and neck extension. No stridor. LUNGS: Bibasilar crackles noted. Normal chest wall mechanics. HEART: NSR, no MRG. ABDOMEN: Abdomen soft, non-tender, normo-active bowel sounds, no masses, no rebound or guarding. BACK: No CVA TTP. SKIN: No rashes and no bruising. UPPER EXTREMITIES: Upper extremities are grossly normal. LOWER EXTREMITIES: Grossly normal, no edema. Negative Homans' sign bilaterally. NEURO EXAM: A&O x3, cranial nerves II-XII grossly intact, normal speech, moves all 4 extremities. 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 Basal cell carcinoma Chest pain DVT prophylaxis Dyslipidemia Fibromyalgia GERD (gastroesophageal reflux disease) History of concussion MAY 2018 - 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 GETS HEADACHES FROM History of skin cancer HTN (hypertension) Hx of sleep apnea COULDN'T TOLERATE CPAP/REPEAT TESTING SHOWED "DIDN'T NEED" CPAP Hypertension Hypothyroidism JUDI (iron deficiency anemia) Nutcracker esophagus ARTHUR (obstructive sleep apnea) Osteoarthritis Pacemaker PAF (paroxysmal atrial fibrillation) Pancreatic insufficiency Paroxysmal atrial fibrillation Rheumatoid arthritis Scoliosis Shortness of breath Tachy-sheryl syndrome Tachy-sheryl syndrome Urge incontinence of urine Urinary incontinence Surgical History History of appendectomy History of bilateral cataract extraction History of bladder suspension procedure History of cardiac cath 4 YRS AGO..CHEST PAIN...ALTOONA - NO FINDINGS...HIATAL HERNIA DX History of colonoscopy History of endoscopy DILATION OF ESOPHAGUS History of eye surgery LASER History of laparoscopic cholecystectomy History of left knee replacement History of lumbar fusion History of partial colectomy History of partial hysterectomy History of rectocele REPAIR WITH MESH AND MESH SINCE REMOVED History of repair of hiatal hernia History of repair of right rotator cuff History of right knee surgery BRUSA SAC REMOVED History of total left knee replacement History of urologic surgery BLADDER TAC S/P lumbar fusion S/P repair of paraesophageal hernia Family History Sister Colorectal cancer Hypertension Mother Stroke Hypertension Other No pertinent family history Social History Smoking Status: Never smoker Hx Alcohol Use: No Hx Substance Use: No Preferred Language: Mauritanian Communication Ability: Effective Certified Maintenance Welder Required: No Beliefs That Will Affect Care: None marital status: Current Living Situation: Spouse Current Living Situation Comment: Other Information That Helps Us Care for You: No Feels Safe at Home: Yes Safety Concerns: Feels Safe At This Time Assistive Devices: Cane and Walker Allergies Allergies Allergy/AdvReac Type Severity Reaction Status Date / Time bee venom protein (honey bee) Allergy Intermediate "SWELLED Verified 10/21/22 22:33 ALL UP" Iodinated Contrast Media Allergy Intermediate PASSED Verified 10/21/22 22:33 OUT-BODY FELT COLD ALL OVER venlafaxine Allergy Unknown Unknown Verified 10/21/22 22:33 gabapentin AdvReac Intermediate HORRIBLE Verified 10/21/22 22:33 HEADACHES rosuvastatin [From Crestor] AdvReac Intermediate PAIN IN Verified 10/21/22 22:33 JOINTS atorvastatin AdvReac Mild PAIN IN Verified 10/21/22 22:33 JOINTS shellfish derived AdvReac Mild Headache Verified 10/21/22 22:33 Home Meds Home Medications Medication Instructions Recorded Confirmed armodafinil 250 mg tablet (Nuvigil) 250 mg PO QAM 07/15/18 10/28/22 calcium 650 mg-vitamin D3 12.5 2 tab PO DAILY 03/05/19 10/28/22 mcg-vitamin K 40 mcg chewable tablet (Viactiv) levothyroxine 75 mcg tablet 75 mcg PO Q2D 11/02/20 10/28/22 hydrocodone 10 mg-acetaminophen 1 tab PO Q8 PRN Pain 01/30/21 10/28/22 325 mg tablet hydroxyzine HCl 25 mg tablet 25 - 50 mg PO HS PRN Itching 01/30/21 10/28/22 levothyroxine 50 mcg tablet 50 mcg PO Q2D 01/30/21 10/28/22 lorazepam 0.5 mg tablet 0.5 mg PO TID PRN Anxiety 01/30/21 10/28/22 meclizine 25 mg tablet 25 mg PO TID PRN Dizziness 01/30/21 10/28/22 pantoprazole 40 mg tablet,delayed 40 mg PO AMHS 01/30/21 10/28/22 release hydrochlorothiazide 12.5 mg capsule 12.5 mg PO QAM 08/23/21 10/28/22 fentanyl 25 mcg/hr transdermal 25 mcg transdermal Q72H 04/10/22 10/28/22 patch dicyclomine 10 mg capsule 10 mg PO TID PRN Abdominal Pain 04/11/22 10/28/22 adalimumab 40 mg/0.8 mL 40 mg subcut Q7D 04/12/22 10/28/22 subcutaneous syringe kit (Humira) albuterol sulfate 90 mcg/actuation 2 puff inhalation QID PRN 10/21/22 10/28/22 aerosol inhaler Shortness Of Breath Or Wheezing escitalopram oxalate 20 mg tablet 20 mg PO QAM 10/21/22 10/28/22 flecainide 50 mg tablet 50 mg PO AMHS 10/21/22 10/28/22 losartan 50 mg tablet 50 mg PO QAM 10/21/22 10/28/22 mv-mn-folic 200 mcg-vit K 15 1 cap PO AMHS 10/21/22 10/28/22 mcg-lutein 5 mg-zeaxanthin 1 mg capsule (PreserVision AREDS 2 Plus Multivit) polyethylene glycol 3350 17 gram 17 g PO UD PRN Constipation 10/21/22 10/28/22 oral powder packet (Miralax) Previous Rx's Medication Instructions Recorded acetaminophen 325 mg tablet 650 mg PO Q6H PRN fever or pain 11/03/20 #100 tabs doxycycline hyclate 100 mg capsule 100 mg PO BID@0700,1900 #7 caps 10/25/22 famotidine 20 mg tablet 20 mg PO BID #20 tabs 10/25/22 phenol 1.4 % mucosal aerosol spray 1 spray MT TID PRN sore throat #1 10/25/22 (Sore Throat (phenol)) btl prednisone 10 mg tablet 10 mg PO UD #6 tabs 10/25/22 Results & Data (ED) Vital Signs Vital Signs - 24 hr 10/28/22 12:40 10/28/22 12:49 10/28/22 13:20 Temperature 36.2 C L Temperature Source Oral Pulse Rate 74 67 80 Pulse Rate from SpO2 Sensor Pulse Rhythm Regular Pulse Strength Normal Respiratory Rate 17 Blood Pressure 144/75 H Blood Pressure Mean 98 Pulse Oximetry 90 Oxygen Delivery Method Room Air Sepsis Recent Fever Within 48 Hours No Sepsis New/Unexplained Change in Mental Status No Sepsis Action Taken by Nursing No Action Required 10/28/22 12:47 10/28/22 13:30 10/28/22 14:12 Temperature Temperature Source Pulse Rate 68 68 64 Pulse Rate from SpO2 Sensor 68 68 64 Pulse Rhythm Pulse Strength Respiratory Rate 17 16 15 Blood Pressure 144/75 H 124/69 Blood Pressure Mean 98 87 Pulse Oximetry 93 95 97 Oxygen Delivery Method Sepsis Recent Fever Within 48 Hours Sepsis New/Unexplained Change in Mental Status Sepsis Action Taken by Nursing 10/28/22 14:41 10/28/22 14:20 10/28/22 14:30 Temperature Temperature Source Pulse Rate 66 64 Pulse Rate from SpO2 Sensor 64 Pulse Rhythm Pulse Strength Respiratory Rate 15 Blood Pressure 117/70 Blood Pressure Mean 85 Pulse Oximetry 98 Oxygen Delivery Method Sepsis Recent Fever Within 48 Hours Sepsis New/Unexplained Change in Mental Status Sepsis Action Taken by Nursing 10/28/22 14:30 10/28/22 14:40 10/28/22 14:50 Temperature Temperature Source Pulse Rate 65 65 66 Pulse Rate from SpO2 Sensor 64 64 66 Pulse Rhythm Pulse Strength Respiratory Rate 14 15 15 Blood Pressure Blood Pressure Mean Pulse Oximetry 98 98 97 Oxygen Delivery Method Sepsis Recent Fever Within 48 Hours Sepsis New/Unexplained Change in Mental Status Sepsis Action Taken by Nursing 10/28/22 15:00 10/28/22 15:01 10/28/22 15:01 Temperature Temperature Source Pulse Rate 63 75 Pulse Rate from SpO2 Sensor 63 74 Pulse Rhythm Pulse Strength Respiratory Rate 14 26 H Blood Pressure 94/78 L Blood Pressure Mean 83 Pulse Oximetry 97 98 Oxygen Delivery Method Sepsis Recent Fever Within 48 Hours Sepsis New/Unexplained Change in Mental Status Sepsis Action Taken by Nursing 10/28/22 15:10 10/28/22 15:20 10/28/22 17:01 Temperature Temperature Source Pulse Rate 64 64 61 Pulse Rate from SpO2 Sensor 63 64 58 L Pulse Rhythm Pulse Strength Respiratory Rate 15 15 14 Blood Pressure Blood Pressure Mean Pulse Oximetry 97 98 85 L Oxygen Delivery Method Sepsis Recent Fever Within 48 Hours Sepsis New/Unexplained Change in Mental Status Sepsis Action Taken by [facility] Medications Current Medication List: was personally reviewed by me Laboratory Data Attestation: I reviewed the patient's lab results. 10/28/22 12:40 10/28/22 12:40 Lab Results 10/28/22 10/28/22 10/28/22 Range/Units 12:40 12:40 12:40 WBC 5.78 (4.8-10.8) K/ul RBC 5.06 (4.20-5.40) M/uL Hgb 16.2 H (12.0-16.0) g/dl Hct 47.1 H (37.0-47.0) % MCV 93.1 (80.0-100.0) fL MCH 32.0 (25.0-34.0) pg MCHC 34.4 (32.0-36.0) g/dL RDW Std Deviation 45.1 (36.4-46.3) fL RDW Coeff of Kim 13.3 (11.5-14.5) % Plt Count 240 (130-400) K/uL MPV 9.4 (9.4-12.4) fL Immature Gran % (Auto) 4.7 % Neut % (Auto) 59.5 % Lymph % (Auto) 23.0 % Shelby % (Auto) 11.2 % Eos % (Auto) 0.9 % Baso % (Auto) 0.7 % Neut # (Auto) 3.44 (1.40-6.50) K/uL Lymph # (Auto) 1.33 (1.2-3.4) K/uL Shelby # (Auto) 0.65 H (0.11-0.59) K/uL Eos # (Auto) 0.05 (0-0.50) K/uL Baso # (Auto) 0.04 (0-0.2) K/uL Immature Gran # (Auto) 0.27 H (0.01-0.20) K/uL Sodium 137 (136-145) mmol/L Potassium 3.8 (3.5-5.1) mmol/L Chloride 99 (98-107) mmol/L Carbon Dioxide 27 (21-32) mmol/L Anion Gap 11 (3-11) BUN 24 H (6-23) mg/dl Creatinine 1.11 (0.6-1.2) mg/dl Est Cr Clr Drug Dosing 30.6 ml/min Est GFR ( Amer) 54.7 ml/min Est GFR (Non-Af Amer) 47.2 ml/min BUN/Creatinine Ratio 21.6 H (10-20) Glucose 90 (70-99(Fasting)) mg/dl Calcium 9.8 (8.6-10.3) mg/dl Total Bilirubin 0.5 (0.2-1.0) mg/dl AST 42 H (13-39) U/L ALT 40 (7-52) U/L Alkaline Phosphatase 62 (34-104) U/L Troponin I High Sens 18.1 H (0-14) pg/ml Total Protein 7.0 (6.0-8.3) gm/dl Albumin 3.6 (3.4-5.0) gm/dl Globulin 3.4 (2.5-4.0) gm/dl Albumin/Globulin Ratio 1.1 (0.9-2) SARS-CoV-2 (PCR) (Negative) Influenza Type A (PCR) (Neg) Influenza Type B (PCR) (Neg) RSV (RT-PCR) (Neg) 10/28/22 Range/Units 15:05 WBC (4.8-10.8) K/ul RBC (4.20-5.40) M/uL Hgb (12.0-16.0) g/dl Hct (37.0-47.0) % MCV (80.0-100.0) fL MCH (25.0-34.0) pg MCHC (32.0-36.0) g/dL RDW Std Deviation (36.4-46.3) fL RDW Coeff of Kim (11.5-14.5) % Plt Count (130-400) K/uL MPV (9.4-12.4) fL Immature Gran % (Auto) % Neut % (Auto) % Lymph % (Auto) % Shelby % (Auto) % Eos % (Auto) % Baso % (Auto) % Neut # (Auto) (1.40-6.50) K/uL Lymph # (Auto) (1.2-3.4) K/uL Shelby # (Auto) (0.11-0.59) K/uL Eos # (Auto) (0-0.50) K/uL Baso # (Auto) (0-0.2) K/uL Immature Gran # (Auto) (0.01-0.20) K/uL Sodium (136-145) mmol/L Potassium (3.5-5.1) mmol/L Chloride (98-107) mmol/L Carbon Dioxide (21-32) mmol/L Anion Gap (3-11) BUN (6-23) mg/dl Creatinine (0.6-1.2) mg/dl Est Cr Clr Drug Dosing ml/min Est GFR ( Amer) ml/min Est GFR (Non-Af Amer) ml/min BUN/Creatinine Ratio (10-20) Glucose (70-99(Fasting)) mg/dl Calcium (8.6-10.3) mg/dl Total Bilirubin (0.2-1.0) mg/dl AST (13-39) U/L ALT (7-52) U/L Alkaline Phosphatase (34-104) U/L Troponin I High Sens (0-14) pg/ml Total Protein (6.0-8.3) gm/dl Albumin (3.4-5.0) gm/dl Globulin (2.5-4.0) gm/dl Albumin/Globulin Ratio (0.9-2) SARS-CoV-2 (PCR) POSITIVE A* (Negative) Influenza Type A (PCR) Negative (Neg) Influenza Type B (PCR) Negative (Neg) RSV (RT-PCR) Negative (Neg) Administered Medications Calcium/Vitamin D (Calcium 600mg + Vit D 400 Iu Tab) 1 tab PO DAILY MIKEY Stop: 11/28/22 08:59 Last Admin: 10/29/22 08:05 Dose: 1 tab Documented By: NAPOLEON Escitalopram Oxalate (Escitalopram Oxalate 20 Mg Tab) 20 mg PO QAM MIKEY Stop: 11/28/22 08:59 Last Admin: 10/29/22 08:05 Dose: 20 mg Documented By: NAPOLEON Famotidine (Famotidine 20 Mg Tab) 20 mg PO BID MIKEY Stop: 11/27/22 20:59 Last Admin: 10/29/22 08:05 Dose: 20 mg Documented By: Admin: 10/28/22 21:03 Dose: 20 mg Documented By: MAC Fentanyl (Fentanyl 25 Mcg/Hr Tdsy) 25 mcg TD Q72H MIKEY Stop: 11/11/22 19:13 Last Admin: 10/28/22 21:00 Dose: 25 mcg Documented By: MAC Flecainide Acetate (Flecainide Acetate 100 Mg Tablet) 50 mg PO AMHS MIKEY Stop: 11/27/22 20:59 Last Admin: 10/29/22 08:04 Dose: 50 mg Documented By: Admin: 10/28/22 21:01 Dose: 50 mg Documented By: MAC Heparin Sodium (Porcine) (Heparin Sod 5,000 Unit/0.5 Ml Vial) 5,000 units SQ Q12 MIKEY Stop: 11/27/22 20:59 Last Admin: 10/29/22 08:05 Dose: 5,000 units Documented By: Admin: 10/28/22 21:03 Dose: 5,000 units Documented By: MAC Lactated Ringer's (Lr) 1,000 mls @ 75 mls/hr IV .[id number] MIKEY Stop: 10/29/22 21:53 Last Admin: 10/29/22 08:03 Dose: 75 mls/hr Documented By: Infusion: 10/29/22 08:03 Dose: 75 mls/hr Documented By: Admin: 10/28/22 20:57 Dose: 75 mls/hr Documented By: MAC Levothyroxine Sodium (Levothyroxine Sodium 75 Mcg Tablet) 75 mcg PO Q2D@0630 MIKEY Stop: 11/28/22 06:29 Last Admin: 03/28/23 05:46 Dose: 75 mcg Documented By: DRU Losartan Potassium (Losartan Potassium 50 Mg Tab) 50 mg PO QAM [facility] Stop: 11/28/22 08:59 Last Admin: 10/29/22 08:00 Dose: 50 mg Documented By: NAPOLEON Misherbert (Nuvigil-Order Awaiting Action) 1 each N/A QS MIKEY Stop: 11/28/22 00:00 Last Admin: 10/29/22 08:03 Dose: Not Given Documented By: Admin: 10/29/22 00:08 Dose: Not Given Documented By: DRU Stahl (Check Fentanyl Patch Placement) 1 each N/A QS [facility] Stop: 11/28/22 00:00 Last Admin: 10/29/22 08:03 Dose: 1 each Documented By: Admin: 10/29/22 00:08 Dose: 1 each Documented By: DRU Stahl (Fentanyl Patch Remove & Waste) 1 each N/A Q3D MIKEY Stop: 11/27/22 19:58 Last Admin: 10/28/22 21:03 Dose: 1 each Documented By: DRU Co-signed By: LAURA Multivitamins/Minerals (Cerovite Adv Formula Tab) 1 tab PO DAILY MIKEY Stop: 11/28/22 08:59 Last Admin: 10/29/22 08:05 Dose: 1 tab Documented By: NAPOLEON Pantoprazole Sodium (Pantoprazole 40 Mg Tab) 40 mg PO AMHS MIKEY Stop: 11/27/22 20:59 Last Admin: 10/29/22 08:04 Dose: 40 mg Documented By: Admin: 10/28/22 21:04 Dose: 40 mg Documented By: DRU Discontinued Medications Acetaminophen (Acetaminophen 325 Mg Tab) 650 mg PO NOW STA Stop: 10/28/22 16:31 Last Admin: 10/28/22 16:36 Dose: 650 mg Documented By: IMMANUEL Doxycycline Hyclate (Doxycycline Hyclate 100 Mg Cap) 100 mg PO BID@0700,1900 MIKEY Stop: 10/29/22 07:01 Last Admin: 10/29/22 05:46 Dose: 100 mg Documented By: Admin: 10/28/22 21:02 Dose: 100 mg Documented By: DRU Sodium Chloride (Nss 1000ml) 500 mls @ 999 mls/hr IV .Q31M ONE Stop: 10/28/22 16:27 Last Infusion: 10/28/22 17:47 Dose: 0 mls/hr Documented By: Admin: 10/28/22 16:03 Dose: 999 mls/hr Documented By: IMMANUEL Morphine Sulfate (Morphine Sulfate 2 Mg/Ml Carp) 2 mg IV NOW STA Stop: 10/28/22 13:59 Last Admin: 10/28/22 14:03 Dose: 2 mg Documented By: LIDIA Imaging Data Radiologist's Impression: Chest X-Ray 10/28/22 14:47 SINGLE VIEW CHEST CLINICAL HISTORY: Cough. Hypoxia FINDINGS: An AP, portable, upright chest radiograph is compared to study dated 10/21/2022 and correlated with chest CT dated 10/22/2022. A 2-lead cardiac pacemaker is unchanged in position. The heart is enlarged. The pulmonary vasculature is noncongested. Chronic interstitial thickening is similar to previous. There is bibasilar scarring/atelectasis. No airspace consolidation or large pleural effusion is identified. No pneumothorax is seen. The skeletal structures are osteopenic. There are chronic/healed left-sided rib fractures. A neurostimulator lead projects over the thoracic spine. A right shoulder arthroplasty is in place. Advanced arthritic change is seen in the right shoulder. IMPRESSION: 1. Cardiomegaly and cardiac pacemaker without radiographic evidence of congestive failure. 2. No airspace consolidation or large pleural effusion is identified. ACT 112: Negative or not required by law. Electronically signed by: Alexi Avendano M.D. 10/28/2022 3:20 PM Discharge Plan Visit Data Chief Complaint: Illness ED Provider: Raul King Discharge Problem: Acute dehydration, Weakness, Fatigue, Hypoxia, Body aches Patient Disposition: Admitted As Inpatient Discharge Instructions Interventions: ED Discharge Assessment Last Done: 10/28/22 18:04
[2022-10-28] MEDS ORDERED: MoRPHine SULFATE 2 MG/ML CARP IV STA (13:58)
[2022-10-28 14:37] LABS: Albumin Globulin Ratio 1.1 (0.9-2); Albumin Level 3.6 gm/dl (3.4-5.0); BUN Creatinine Ratio 21.6 (10-20); Bilirubin,Total 0.5 mg/dl (0.2-1.0); Calcium 9.8 mg/dl (8.6-10.3); Creatinine Clr Calc Pharmacy 30.6 ml/min; Est GFR (African American) 54.7 ml/min; Est GFR (Non-African American) 47.2 ml/min; Globulin 3.4 gm/dl (2.5-4.0); Potassium 3.8 mmol/L (3.5-5.1)
--- NOTE | 2022-10-28 15:18 | Electrocardiogram Report ---
Test Reason : Blood Pressure : / mmHG Vent. Rate : 060 BPM Atrial Rate : 060 BPM P-R Int : 136 ms QRS Dur : 086 ms QT Int : 408 ms P-R-T Axes : 050 -28 018 degrees QTc Int : 408 ms Poor data quality, interpretation may be adversely affected Normal sinus rhythm with occasional atrial-paced complexes Abnormal ECG When compared with ECG of 21-OCT-2022 21:09, QRS axis Shifted left Confirmed by Praneeth Quiroga ([id number]) on 10/28/2022 3:18:00 PM Referred By: Confirmed By:Praneeth Quiroga
--- NOTE | 2022-10-28 15:22 | XRay Report ---
SINGLE VIEW CHEST CLINICAL HISTORY: Cough. Hypoxia FINDINGS: An AP, portable, upright chest radiograph is compared to study dated 10/21/2022 and correlat ed with chest CT dated 10/22/2022. A 2-lead cardiac pacemaker is unchanged in position. The heart is e nlarged. The pulmonary vasculature is noncongested. Chronic interstitial thickening is similar to pre vious. There is bibasilar scarring/atelectasis. No airspace consolidation or large pleural effusion i s identified. No pneumothorax is seen. The skeletal structures are osteopenic. There are chronic/heal ed left-sided rib fractures. A neurostimulator lead projects over the thoracic spine. A right shoulde r arthroplasty is in place. Advanced arthritic change is seen in the right shoulder. IMPRESSION: 1. Cardiomegaly and cardiac pacemaker without radiographic evidence of congestive failure. 2. No airspace consolidation or large pleural effusion is identified. ACT 112: Negative or not required by law. Electronically signed by: Alexi Avendano M.D. 10/28/2022 3:20 PM
[2022-10-28] MEDS ORDERED: SODIUM CHLORIDE 0.9% 1000ML 500 ML IV ONE (15:57)
[2022-10-28 16:09] LABS: Influenza A virus by PCR Negative (Neg); Influenza B virus by PCR Negative (Neg); RSV by PCR Negative (Neg)
[2022-10-28] MEDS ORDERED: ACETAMINOPHEN 325 MG TAB PO STA (16:30)
[2022-10-28 16:36] LABS: SARS CoV2 RNA(COVID-19) Ceph POSITIVE (Negative)
--- NOTE | 2022-10-28 17:16 | History & Physical Report ---
Date of Service October 28, 2022 Assessment & Plan (1) Generalized weakness: (2) Dehydration: (3) COVID-19: (4) PAF (paroxysmal atrial fibrillation): Plan This is a 81-year-old female who has significant past medical history of PAF not on anticoagulation due to history of GI bleed, tachybradycardia syndrome status post pacemaker in 2020, COPD, hypothyroidism, osteoporosis, fibromyalgia, chronic pain, back stimulator in place, ARTHUR on CPAP, HTN, HLD, ileocecal valve syndrome, CKD stage III, history rheumatoid arthritis, depression, history of partial colectomy who presents to ED secondary to worsening weakness and poor appetite x3 days. Patient recently admitted 10/22 to 10/25/2022 secondary to COVID-19 pneumonia and mild troponin elevation. She was treated with IV dexamethasone and oral doxycycline. Discharged on oral prednisone and doxycycline. Patient continues to experience weakness, poor appetite, headache and dehydration. She is unable to care for self at home and daughter unable to care for her as well. Generalized weakness Dehydration Mild renal insufficiency Admit to med telemetry Dehydration supported with polycythemia and mild elevation in creatinine to 1.11 Continue IV fluid LR 75 cc/h for additional 2 bags PT/OT Per recent therapy notes patient did not qualify for rehab; However daughter states to weak to manage at home Recent COVID 19 Pneumonia COVID vaccinated and boosted twice per patient Elevated troponin (present during recent hospitalization) --CXR negative for infection --ECHO 10/22: Left ventricle is normal in size. Mild concentric LVH. Left ventricle wall motion is normal. EF 60 to 65%. Grade 1 diastolic dysfunction. Aortic valve sclerosis mild, without significant aortic valve stenosis. Trace mitral regurgitation. Mild tricuspid regurgitation. continue doxy for 2 more doses, off prednisone Saturating well on room air Continue isolation precautions trop still mildly bumped but much improved, no CP will cycle trops for completeness Left renal lesion incidentally noted during last admission --CT ABD:No acute abnormality in the abdomen or pelvis on noncontrast examination. Colonic diverticulosis without evidence of acute diverticulitis. I ndeterminate 10 mm left renal lesion. This can be evaluated with MRI as clinically. Needs follow-up as outpatient Paroxysmal atrial fibrillation On flecainide Not on anticoagulation secondary to GI bleed ARTHUR CPAP at HS Hypertension hold hctz and losartan for now given dehydration and softer bps Rheumatoid arthritis on Humira Depression on Lexapro. Hypothyroidism On levothyroxine GERD H/O Hiatal hernia Continue PPI Chronic diastolic congestive heart failure Monitor volume status Continue home diuretic H/O scoliosis, fibromyalgia S/P spinal cord stimulator placement by Dr. Healy Stimulator lead displacement Needs follow-up with Dr. Healy upon discharge to have removed DVT Px: Heparin SQ Full Code PCP: Mounika Dispo: admit to med tele; PT/OT, pt likely needs acute rehab A total of 78 minutes was spent with greater than 50% of that time personally viewing all current laboratory work and diagnostic imaging studies obtained in the ED. Additionally, I was able to view the patients past medication reconciliation and history with direct visualization in the patients chart. Included in the time above, a portion of that time was spent assessing the patient while discussing and collaborating with specialists, if necessary, and making medical decision making on treatment plan. All of the above was collaborated with Dr. Blackmon. Please see addendum for further details. History of Present Illness Chief Complaint: persistent weakness and poor appetite x 3 days. Primary Care Provider: Ambrose Ribera MD This is a 81-year-old female who has significant past medical history of PAF not on anticoagulation due to history of GI bleed, tachybradycardia syndrome status post pacemaker in 2020, COPD, hypothyroidism, osteoporosis, fibromyalgia, chronic pain, back stimulator in place, ARTHUR on CPAP, HTN, HLD, ileocecal valve syndrome, CKD stage III, history rheumatoid arthritis, depression, history of partial colectomy who presents to ED secondary to worsening weakness and poor appetite x3 days. Of significance patient was recently hospitalized on 10/22 to 10/25/2022 secondary to diagnosis of COVID-19. Her also had COVID-19. She was diagnosed with COVID-19 pneumonia. She did not require oxygenation. She was treated with IV dexamethasone and placed on oral doxycycline. She was then discharged on short course of oral prednisone. She did not meet criteria for remdesivir. Her procalcitonin and CRP were within normal limits. She was seen and evaluated by PT and OT who felt she was candidate to return home. She represents back today with her daughter at bedside. Since being discharged home she remains significantly weak, having difficulty walking and overall poor appetite. She continues to have off-and-on diarrhea. Daughter at bedside states that she has been making her eat as much as she can. Patient lives at home with her who is also elderly and has significant medical comorbidities of his own. Daughter is unable to care for both mother and father and due to persistent weakness brought back to the ER. In ED patient remained hemodynamically stable.Lab work significant for polycythemia with H&H 16.2 and 47.1 consistent with likely dehydration, elevated BUN at 24, increase of baseline creatinine to 1.11 and elevated troponin at 18.1. SARS-CoV-2 continued to be positive. Chest x-ray negative for any acute abnormality. In ED she received IV fluid as well as Tylenol. Currently patient admits to feeling weak and also complains of dizziness upon standing. She denies any dizziness or lightheadedness when sitting, fever, chills, sweats, chest pain, cough, shortness of breath, nausea, vomiting, abdominal pain. Her vomiting with COVID is since subsided but she does still get occasional dry heaves. Again continues to get diarrhea but denies of any bleeding. Overall urination has decreased but denies any dysuria, increased urgency or frequency or hematuria. Allergies Allergy/AdvReac Type Severity Reaction Status Date / Time bee venom protein (honey bee) Allergy Intermediate "SWELLED Verified 10/21/22 22:33 ALL UP" Iodinated Contrast Media Allergy Intermediate PASSED Verified 10/21/22 22:33 OUT-BODY FELT COLD ALL OVER venlafaxine Allergy Unknown Unknown Verified 10/21/22 22:33 gabapentin AdvReac Intermediate HORRIBLE Verified 10/21/22 22:33 HEADACHES rosuvastatin [From Crestor] AdvReac Intermediate PAIN IN Verified 10/21/22 22:33 JOINTS atorvastatin AdvReac Mild PAIN IN Verified 10/21/22 22:33 JOINTS shellfish derived AdvReac Mild Headache Verified 10/21/22 22:33 Home Medications Medication Instructions Recorded Confirmed Type armodafinil 250 mg tablet (Nuvigil) 250 mg PO QAM 07/15/18 10/28/22 History calcium 650 mg-vitamin D3 12.5 2 tab PO DAILY 03/05/19 10/28/22 History mcg-vitamin K 40 mcg chewable tablet (Viactiv) levothyroxine 75 mcg tablet 75 mcg PO Q2D 11/02/20 10/28/22 History acetaminophen 325 mg tablet 650 mg PO Q6H PRN fever or pain 11/03/20 10/28/22 Rx #100 tabs hydrocodone 10 mg-acetaminophen 1 tab PO Q8 PRN Pain 01/30/21 10/28/22 History 325 mg tablet hydroxyzine HCl 25 mg tablet 25 - 50 mg PO HS PRN Itching 01/30/21 10/28/22 History levothyroxine 50 mcg tablet 50 mcg PO Q2D 01/30/21 10/28/22 History lorazepam 0.5 mg tablet 0.5 mg PO TID PRN Anxiety 01/30/21 10/28/22 History meclizine 25 mg tablet 25 mg PO TID PRN Dizziness 01/30/21 10/28/22 History pantoprazole 40 mg tablet,delayed 40 mg PO AMHS 01/30/21 10/28/22 History release hydrochlorothiazide 12.5 mg capsule 12.5 mg PO QAM 08/23/21 10/28/22 History fentanyl 25 mcg/hr transdermal 25 mcg transdermal Q72H 04/10/22 10/28/22 History patch dicyclomine 10 mg capsule 10 mg PO TID PRN Abdominal Pain 04/11/22 10/28/22 History adalimumab 40 mg/0.8 mL 40 mg subcut Q7D 04/12/22 10/28/22 History subcutaneous syringe kit (Humira) albuterol sulfate 90 mcg/actuation 2 puff inhalation QID PRN 10/21/22 10/28/22 History aerosol inhaler Shortness Of Breath Or Wheezing escitalopram oxalate 20 mg tablet 20 mg PO QAM 10/21/22 10/28/22 History flecainide 50 mg tablet 50 mg PO AMHS 10/21/22 10/28/22 History losartan 50 mg tablet 50 mg PO QAM 10/21/22 10/28/22 History mv-mn-folic 200 mcg-vit K 15 1 cap PO AMHS 10/21/22 10/28/22 History mcg-lutein 5 mg-zeaxanthin 1 mg capsule (PreserVision AREDS 2 Plus Multivit) polyethylene glycol 3350 17 gram 17 g PO UD PRN Constipation 10/21/22 10/28/22 History oral powder packet (Miralax) doxycycline hyclate 100 mg capsule 100 mg PO BID@0700,1900 #7 caps 10/25/22 10/28/22 Rx famotidine 20 mg tablet 20 mg PO BID #20 tabs 10/25/22 10/28/22 Rx phenol 1.4 % mucosal aerosol spray 1 spray MT TID PRN sore throat #1 10/25/22 10/28/22 Rx (Sore Throat (phenol)) btl prednisone 10 mg tablet 10 mg PO UD #6 tabs 10/25/22 10/28/22 Rx 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 Basal cell carcinoma Chest pain DVT prophylaxis Dyslipidemia Fibromyalgia GERD (gastroesophageal reflux disease) History of concussion MAY 2018 - 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 GETS HEADACHES FROM History of skin cancer HTN (hypertension) Hx of sleep apnea COULDN'T TOLERATE CPAP/REPEAT TESTING SHOWED "DIDN'T NEED" CPAP Hypertension Hypothyroidism JUDI (iron deficiency anemia) Nutcracker esophagus ARTHUR (obstructive sleep apnea) Osteoarthritis Pacemaker PAF (paroxysmal atrial fibrillation) Pancreatic insufficiency Paroxysmal atrial fibrillation Rheumatoid arthritis Scoliosis Shortness of breath Tachy-sheryl syndrome Tachy-sheryl syndrome Urge incontinence of urine Urinary incontinence Surgical History History of appendectomy History of bilateral cataract extraction History of bladder suspension procedure History of cardiac cath 4 YRS AGO..CHEST PAIN...ALTOONA - NO FINDINGS...HIATAL HERNIA DX History of colonoscopy History of endoscopy DILATION OF ESOPHAGUS History of eye surgery LASER History of laparoscopic cholecystectomy History of left knee replacement History of lumbar fusion History of partial colectomy History of partial hysterectomy History of rectocele REPAIR WITH MESH AND MESH SINCE REMOVED History of repair of hiatal hernia History of repair of right rotator cuff History of right knee surgery BRUSA SAC REMOVED History of total left knee replacement History of urologic surgery BLADDER TAC S/P lumbar fusion S/P repair of paraesophageal hernia Family History Sister Colorectal cancer Hypertension Mother Stroke Hypertension Other No pertinent family history Social History Smoking Status: Never smoker Hx Alcohol Use: No Hx Substance Use: No Preferred Language: Iranian Communication Ability: Effective Floor Cashier Required: No Beliefs That Will Affect Care: Adventist marital status: Current Living Situation: Spouse Current Living Situation Comment: Feels Safe at Home: Yes Assistive Devices: Cane, CPAP and Oxygen - at Night Review of Systems Review of Systems: All systems reviewed & are unremarkable except as noted in HPI & below Physical Exam Physical Exam: Constitutional: Elderly, petite F, soft spoken, Nontoxic appearing, weak appearing, vitals as above, NAD, sitting up in bed, pleasant, conversing easily Head: Normocephalic, Atraumatic Eyes: PERRL, conjunctivae normal, anicteric sclerae ENMT: external ear and nose normal, oropharynx normal dry membranes Neck: trachea midline, no thyromegaly normal visual inspection Respiratory: normal respiratory effort, lungs clear to auscultation, no wheeze, rales, rhonchi. Normal insp/exp effort, no accessory muscle use Cardiovascular: RRR, no murmur, no edema Vessels: no JVD or carotid bruit Chest: normal inspection of chest Abdomen: normal bowel sounds, soft, nontender, no hepatosplenomegaly Musculoskeletal: no cyanosis or clubbing, extremities motor strength 5/5 Skin: no rashes, warm and dry normal turgor Neurologic: PERRL, EOMI, accommodation nl, no face palsy, no dysarthria CN's II-XI intact bilaterally and moves all extremities Psychiatric: A+Ox3, euthymic affect Lymphatic: no cervical or axillary lymphadenopathy : deferred Results & Data Results & Data Vital Signs (Past 12 Hours) Vital Signs Temp Pulse Resp BP Pulse Ox O2 Del Method 10/28/22 14:41 66 10/28/22 14:12 64 15 124/69 97 10/28/22 13:30 68 16 95 10/28/22 12:47 68 17 144/75 H 93 10/28/22 13:20 80 10/28/22 12:49 67 10/28/22 12:40 36.2 C L 74 17 144/75 H 90 Room Air Diagnostic Findings Chest X-Ray 10/28/22 14:47 SINGLE VIEW CHEST CLINICAL HISTORY: Cough. Hypoxia FINDINGS: An AP, portable, upright chest radiograph is compared to study dated 10/21/2022 and correlated with chest CT dated 10/22/2022. A 2-lead cardiac pacemaker is unchanged in position. The heart is enlarged. The pulmonary vasculature is noncongested. Chronic interstitial thickening is similar to previous. There is bibasilar scarring/atelectasis. No airspace consolidation or large pleural effusion is identified. No pneumothorax is seen. The skeletal structures are osteopenic. There are chronic/healed left-sided rib fractures. A neurostimulator lead projects over the thoracic spine. A right shoulder arthroplasty is in place. Advanced arthritic change is seen in the right shoulder. IMPRESSION: 1. Cardiomegaly and cardiac pacemaker without radiographic evidence of congest ange failure. 2. No airspace consolidation or large pleural effusion is identified. ACT 112: Negative or not required by law. Electronically signed by: Alexi Avendano M.D. 10/28/2022 3:20 PM Medications Administered Medication List Discontinued Medications Acetaminophen (Acetaminophen 325 Mg Tab) 650 mg PO NOW STA Stop: 10/28/22 16:31 Last Admin: 10/28/22 16:36 Dose: 650 mg Documented By: KMO Sodium Chloride (Nss 1000ml) 500 mls @ 999 mls/hr IV .Q31M ONE Stop: 10/28/22 16:27 Last Admin: 10/28/22 16:03 Dose: 999 mls/hr Documented By: KMO Morphine Sulfate (Morphine Sulfate 2 Mg/Ml Carp) 2 mg IV NOW STA Stop: 10/28/22 13:59 Last Admin: 10/28/22 14:03 Dose: 2 mg Documented By: NRB ECG Rate (beats per minute): 60 Rhythm: normal sinus COVID-19 Results Results COVID-19 Adm Lab Results: RBC 5.06 M/uL (4.20-5.40) 10/28/22 WBC 5.78 K/ul (4.8-10.8) 10/28/22 Hgb 16.2 g/dl (12.0-16.0) H 10/28/22 Hct 47.1 % (37.0-47.0) H 10/28/22 Plt Count 240 K/uL (130-400) 10/28/22 Neutrophils (%) (Auto) 59.5 % 10/28/22 Lymphocytes (%) (Auto) 23.0 % 10/28/22 Monocytes # (Auto) 0.65 K/uL (0.11-0.59) H 10/28/22 Eosinophils # (Auto) 0.05 K/uL (0-0.50) 10/28/22 Immature Granulocyte % (Auto) 4.7 % 10/28/22 Neutrophils # (Auto) 3.44 K/uL (1.40-6.50) 10/28/22 Lymphocytes # (Auto) 1.33 K/uL (1.2-3.4) 10/28/22 Monocytes # (Auto) 0.65 K/uL (0.11-0.59) H 10/28/22 Eosinophils # (Auto) 0.05 K/uL (0-0.50) 10/28/22 Basophils # (Auto) 0.04 K/uL (0-0.2) 10/28/22 Immature Granulocyte # (Auto) 0.27 K/uL (0.01-0.20) H 10/28 Na 137 mmol/L (136-145) 10/28/22 K 3.8 mmol/L (3.5-5.1) 10/28/22 Cl 99 mmol/L (98-107) 10/28/22 CO2 27 mmol/L (21-32) 10/28/22 Anion Gap 11 (3-11) 10/28/22 BUN 24 mg/dl (6-23) H 10/28/22 Creatinine 1.11 mg/dl (0.6-1.2) 10/28/22 BUN/Creatinine Ratio 21.6 (10-20) H 10/28/22 Glucose Level 90 mg/dl (70-99(Fasting)) 10/28/22 Ca 9.8 mg/dl (8.6-10.3) 10/28/22 Total Bilirubin 0.5 mg/dl (0.2-1.0) 10/28/22 AST/SGOT 42 U/L (13-39) H 10/28/22 ALT/SGPT 40 U/L (7-52) 10/28/22 Alkaline Phosphatase 62 U/L (34-104) 10/28/22 Total Protein 7.0 gm/dl (6.0-8.3) 10/28/22 Albumin 3.6 gm/dl (3.4-5.0) 10/28/22 Globulin 3.4 gm/dl (2.5-4.0) 10/28/22 Albumin/Globulin Ratio 1.1 (0.9-2) 10/28/22 COVID-19 PCR POSITIVE (Negative) A* 10/28/22 Influenza Virus Type A (PCR) Negative (Neg) 10/28/22 Influenza Virus Type B (PCR) Negative (Neg) 10/28/22 Chest X-Ray 10/28/22 Code Status & VTE Plan Code Status FULL CODE VTE Prophylaxis Plan VTE Prophylaxis will be ordered: Yes Supervising Physician Co-Signing Physician Notes Attending addendum: The patient was seen and examined in medical telemetry unit and in the COVID room She was recently discharged from hospital following an attack of COVID-19 virus She is back after 3 days with complaints of ongoing weakness and tiredness Denies any shortness of breath, cough or wheezing On examination Lying in bed comfortably Hemodynamically stable with blood pressure on the lower side at 94/78 O2 saturation is low at room air 85% Chestdecreased breath sounds bilaterally with minimal crackles at the bases HeartS1-S2, regular Abdomenbenign Extremitiesno edema Her admission labs, imaging studies and EKG reviewed Recent COVID-19 virus infection with ongoing weakness and tiredness We will advise PT and OT evaluation and will need possible rehab Reviewed with assessment and plan as outlined above by Jolene Perales.ALMITA Blackmon
[2022-10-28] MEDS ORDERED: HYDROcodone/ACETAMINOPHEN 10/325 TAB PO PRN (19:14)
[2022-10-28] MEDS ORDERED: MAGNESIUM HYDROXIDE SUSP 30 ML UDC PO PRN (19:14)
[2022-10-28] MEDS ORDERED: ALBUTEROL HFA 8 GM INHALER INH PRN (19:14)
[2022-10-28] MEDS ORDERED: ONDANSETRON INJ 2 MG/ML 2 ML VIAL IV PRN (19:14)
[2022-10-28] MEDS ORDERED: POLYETHYLENE (MIRALAX) 17 GM PACK PO PRN (19:14)
[2022-10-28] MEDS: LACTATED RINGER'S 1,000 ML IV SCH (20:57)
[2022-10-28] MEDS: fentaNYL 25 MCG/HR TDSY TD SCH (21:00)
[2022-10-28] MEDS: FLECAINIDE ACETATE 100 MG TABLET PO SCH (21:01)
[2022-10-28] MEDS: DOXYCYCLINE HYCLATE 100 MG CAP PO SCH (21:02)
[2022-10-28] MEDS: FAMOTIDINE 20 MG TAB PO SCH (21:03)
[2022-10-28] MEDS: HEPARIN SOD 5,000 UNIT/0.5 ML VIAL SQ SCH (21:03)
[2022-10-28] MEDS: PANTOprazole 40 MG TAB PO SCH (21:04)
--- NOTE | 2022-10-28 21:06 | Communication Note ---
Date of Service: October 28, 2022 Disregard addendum placed on Romina Jensen H&P entered at 2104 on 10/28/22 as this was entered in wrong patient chart Magdaleno Mcpherson PAC
[2022-10-29] MEDS: CHECK fentaNYL PATCH PLACEMENT SCH ×3 (00:08→17:01)
[2022-10-29 00:23] LABS: Appearance Urine Cloudy (Clear); Bacteria Urine Automated Negative (Negative); Bilirubin Urine Negative (Negative); Blood Urine Negative (Negative); Color Urine Yellow; Glucose Urine UA Negative (Negative); Ketones Urine Trace (Negative); Leukocyte Esterase Urine Negative (Negative); Nitrite Urine Negative (Negative); Protein Urine Trace (Negative); RBC Urine Automated 0-4 /hpf (0-4); Specific Gravity Urine 1.023 (1.000-1.030); Urobilinogen Urine Negative (Negative); pH Urine 5.5 (4.5-7.5)
[2022-10-29 02:38] LABS: Hematocrit (blood only) 37.2 % (37.0-47.0); Hemoglobin 12.7 g/dl (12.0-16.0); Mean Corpuscular Hgb Conc 34.1 g/dL (32.0-36.0); Mean Corpuscular Volume 93.7 fL (80.0-100.0); Mean Platelet Volume 8.9 fL (9.4-12.4); Platelet Count 168 K/uL (130-400); RDW Coefficient of Variation 13.2 % (11.5-14.5); RDW Standard Deviation 45.9 fL (36.4-46.3); Red Blood Count 3.97 M/uL (4.20-5.40); White Blood Count 4.42 K/ul (4.8-10.8)
[2022-10-29 02:48] LABS: BUN Creatinine Ratio 25.6 (10-20); Calcium 8.6 mg/dl (8.6-10.3); Creatinine Clr Calc Pharmacy 36.2 ml/min; Est GFR (African American) 74.5 ml/min; Est GFR (Non-African American) 64.3 ml/min; Magnesium 1.4 mg/dl (1.7-2.4); Potassium 3.8 mmol/L (3.5-5.1)
[2022-10-29 03:08] LABS: Basophils # (auto) 0.01 K/uL (0-0.2); Basophils % (auto) 0.2 %; Eosinophils # (auto) 0.07 K/uL (0-0.50); Eosinophils % (auto) 1.6 %; Immature Granulocytes # (auto) 0.27 K/uL (0.01-0.20); Immature Granulocytes % (auto) 6.1 %; Lymphocytes # (auto) 1.47 K/uL (1.2-3.4); Lymphocytes % (auto) 33.3 %; Monocytes # (auto) 0.48 K/uL (0.11-0.59); Monocytes % (auto) 10.9 %; Neutrophils # (auto) 2.12 K/uL (1.40-6.50); Neutrophils % (auto) 47.9 %; RBC Morphology Unremarkable
[2022-10-29] MEDS: DOXYCYCLINE HYCLATE 100 MG CAP PO SCH (05:46)
[2022-10-29] MEDS: LEVOTHYROXINE SODIUM 75 MCG TABLET PO SCH (05:46)
[2022-10-29] MEDS: LACTATED RINGER'S 1,000 ML IV SCH (08:03)
[2022-10-29] MEDS: PANTOprazole 40 MG TAB PO SCH ×2 (08:04→21:10)
[2022-10-29] MEDS: FLECAINIDE ACETATE 100 MG TABLET PO SCH ×2 (08:04→21:11)
[2022-10-29] MEDS: FAMOTIDINE 20 MG TAB PO SCH ×2 (08:05→21:10)
[2022-10-29] MEDS: ESCITALOPRAM OXALATE 20 MG TAB PO SCH (08:05)
[2022-10-29] MEDS: CALCIUM 600MG + VIT D 400 IU TAB PO SCH (08:05)
[2022-10-29] MEDS: CEROVITE ADV FORMULA TAB PO SCH (08:05)
[2022-10-29] MEDS: HEPARIN SOD 5,000 UNIT/0.5 ML VIAL SQ SCH ×2 (08:05→21:13)
[2022-10-29] MEDS ORDERED: LOSARTAN POTASSIUM 50 MG TAB PO SCH (09:00)
[2022-10-29] MEDS: MAGNESIUM SULFATE / D5W 1 GM/100 ML BAG IV SCH ×2 (09:59→12:00)
[2022-10-29 12:41] LABS: Adenovirus F 40/41 PCR Not Detected (NotDetected); Astrovirus PCR Not Detected (NotDetected); Campylobacter PCR Not Detected (NotDetected); Cryptosporidium PCR Not Detected (NotDetected); Cyclospora cayetanensis PCR Not Detected (NotDetected); Entamoeba histolytica PCR Not Detected (NotDetected); Enteroaggregative E.coli(EAEC) Not Detected (NotDetected); Enteropathogenic E.coli (EPEC) Not Detected (NotDetected); Enterotoxigenic E.coli (ETEC) Not Detected (NotDetected); Giardia lamblia PCR Not Detected (NotDetected); Norovirus GI/GII PCR Not Detected (NotDetected); Plesiomonas shigelloides PCR Not Detected (NotDetected); Rotavirus A PCR Not Detected (NotDetected); Salmonella PCR Not Detected (NotDetected); Sapovirus PCR Not Detected (NotDetected); Shiga-like Toxin E.coli (STEC) Not Detected (NotDetected); Shigella/Enteroinvasive E.coli Not Detected (NotDetected); Vibrio cholerae PCR Not Detected (NotDetected); Vibrio species PCR Not Detected (NotDetected); Yersinia enterocolitica PCR Not Detected (NotDetected)
[2022-10-29] MEDS: LORazepam 0.5 MG TAB PO PRN ×2 (13:20→22:21)
[2022-10-29] MEDS: ACETAMINOPHEN 325 MG TAB PO PRN (13:20)
--- NOTE | 2022-10-29 18:12 | Hospitalist Progress Note ---
Date of Service October 29, 2022 Assessment & Plan (1) Generalized weakness: (2) Dehydration: (3) COVID-19: (4) PAF (paroxysmal atrial fibrillation): Plan Per admitting service notes with addendum: This is a 81-year-old female who has significant past medical history of PAF not on anticoagulation due to history of GI bleed, tachybradycardia syndrome status post pacemaker in 2020, COPD, hypothyroidism, osteoporosis, fibromyalgia, chronic pain, back stimulator in place, ARTHUR on CPAP, HTN, HLD, ileocecal valve syndrome, CKD stage III, history rheumatoid arthritis, depression, history of partial colectomy who presents to ED secondary to worsening weakness and poor appetite x3 days. Patient recently admitted 10/22 to 10/25/2022 secondary to COVID-19 pneumonia and mild troponin elevation. She was treated with IV dexamethasone and oral doxycycline. Discharged on oral prednisone and doxycycline. Patient continues to experience weakness, poor appetite, headache and dehydration. She is unable to care for self at home and daughter unable to care for her as well. Generalized weakness Dehydration Mild renal insufficiency Admit to [facility] telemetry Dehydration supported with polycythemia and mild elevation in creatinine to 1.11 Continue IV fluid LR 75 cc/h for additional 2 bags PT/OT Per recent therapy notes patient did not qualify for rehab; However daughter states to weak to manage at home 10/29 Patient clinically improving Creatinine 0.8 Continue gentle IV fluids Magnesium 1.4-given IV magnesium supplement PT and OT evaluation Recent COVID 19 Pneumonia COVID vaccinated and boosted twice per patient Elevated troponin (present during recent hospitalization) --CXR negative for infection --ECHO 10/22: Left ventricle is normal in size. Mild concentric LVH. Left ventricle wall motion is normal. EF 60 to 65%. Grade 1 diastolic dysfunction. Aortic valve sclerosis mild, without significant aortic valve stenosis. Trace mitral regurgitation. Mild tricuspid regurgitation. continue doxy for 2 more doses, off prednisone Saturating well on room air Continue isolation precautions trop still mildly bumped but much improved, no CP will cycle trops for completeness 10/29 Respiratory status stable Continues to be on room air Completed doxycycline course, and prednisone Troponin decreased from 18, down to 16 Left renal lesion incidentally noted during last admission --CT ABD:No acute abnormality in the abdomen or pelvis on noncontrast examination. Colonic diverticulosis without evidence of acute diverticulitis. Indeterminate 10 mm left renal lesion. This can be evaluated with MRI as clinically. Needs follow-up as outpatient Paroxysmal atrial fibrillation On flecainide Not on anticoagulation secondary to GI bleed ARTHUR CPAP at HS Hypertension BP on the lower side hold hctz and losartan Rheumatoid arthritis on Humira Depression on Lexapro. Hypothyroidism On levothyroxine GERD H/O Hiatal hernia Continue PPI Chronic diastolic congestive heart failure Monitor volume status Continue home diuretic H/O scoliosis, fibromyalgia S/P spinal cord stimulator placement by Dr. Healy Stimulator lead displacement Needs follow-up with Dr. Healy upon discharge to have removed DVT Px: Heparin SQ Full Code PCP: Mounika Dispo: Pending PT and OT evaluation in progress Patient prefers to be discharged to home with home health services if possible upon discharge Admission and Anticipated Discharge Date Admission Date: October 28, 2022 Subjective Follow-up for weakness, etc. Seen resting in bed, sitting up, in good spirits States she feels improved today compared to yesterday Last week Appetite is better Denies chest pain, shortness of breath, cough, fevers or chills No other symptom Review of Systems Review of Systems: all noted and negative except for above Physical Exam Physical Exam: General- oriented x 3, not in distress, speaks in sentences with no effort or accessory muscle use Eyes- anicteric Neck- no JVD Lungs- clear breath sounds bilaterally, no rales/wheezes Heart- normal rate, regular rhythm; no murmurs Abdomen- normal bowel sounds, nondistended, soft, nontender Extremities- no pretibial edema, no calf tenderness Neuro- alert, oriented x 3; no gross focal neurologic deficits Skin- warm & dry Results & Data Results & Data Vital Signs (Past 12 Hours) Vital Signs Temp Pulse Pulse Resp BP Pulse Ox O2 Del Method 10/29/22 16:15 36.8 C 63 16 104/60 91 Room Air 10/29/22 15:36 63 10/29/22 12:00 36.9 C 79 18 118/74 92 Room Air 10/29/22 11:28 60 10/29/22 11:12 Room Air 10/29/22 08:07 36.7 C 53 L 18 128/72 96 Room Air 10/29/22 08:10 93 Room Air 10/29/22 08:08 36.8 C 65 18 131/69 95 Nasal Cannula O2 Flow Rate 10/29/22 16:15 10/29/22 15:36 10/29/22 12:00 10/29/22 11:28 10/29/22 11:12 10/29/22 08:07 10/29/22 08:10 10/29/22 08:08 2 all noted and reviewed including below
[2022-10-30] MEDS: CHECK fentaNYL PATCH PLACEMENT SCH ×3 (00:46→15:00)
[2022-10-30] MEDS: LEVOTHYROXINE SODIUM 50 MCG TABLET PO SCH (05:45)
[2022-10-30 08:09] LABS: Basophils # (auto) 0.02 K/uL (0-0.2); Basophils % (auto) 0.3 %; Eosinophils # (auto) 0.13 K/uL (0-0.50); Eosinophils % (auto) 2.2 %; Hematocrit (blood only) 34.9 % (37.0-47.0); Hemoglobin 11.8 g/dl (12.0-16.0); Immature Granulocytes # (auto) 0.18 K/uL (0.01-0.20); Immature Granulocytes % (auto) 3.1 %; Lymphocytes # (auto) 1.73 K/uL (1.2-3.4); Lymphocytes % (auto) 29.6 %; Mean Corpuscular Hgb Conc 33.8 g/dL (32.0-36.0); Mean Corpuscular Volume 94.6 fL (80.0-100.0); Mean Platelet Volume 8.8 fL (9.4-12.4); Monocytes # (auto) 0.65 K/uL (0.11-0.59); Monocytes % (auto) 11.1 %; Neutrophils # (auto) 3.14 K/uL (1.40-6.50); Neutrophils % (auto) 53.7 %; Platelet Count 169 K/uL (130-400); RDW Coefficient of Variation 13.2 % (11.5-14.5); Red Blood Count 3.69 M/uL (4.20-5.40); White Blood Count 5.85 K/ul (4.8-10.8)
[2022-10-30] MEDS: CALCIUM 600MG + VIT D 400 IU TAB PO SCH (08:36)
[2022-10-30] MEDS: FLECAINIDE ACETATE 100 MG TABLET PO SCH ×2 (08:36→20:56)
[2022-10-30] MEDS: HEPARIN SOD 5,000 UNIT/0.5 ML VIAL SQ SCH ×2 (08:37→20:57)
[2022-10-30] MEDS: CEROVITE ADV FORMULA TAB PO SCH (08:37)
[2022-10-30] MEDS: PANTOprazole 40 MG TAB PO SCH ×2 (08:38→20:57)
[2022-10-30] MEDS: FAMOTIDINE 20 MG TAB PO SCH ×2 (08:38→20:56)
[2022-10-30] MEDS: ESCITALOPRAM OXALATE 20 MG TAB PO SCH (08:38)
[2022-10-30 09:26] LABS: BUN Creatinine Ratio 25.9 (10-20); Calcium 8.4 mg/dl (8.6-10.3); Creatinine Clr Calc Pharmacy 40.1 ml/min; Est GFR (African American) 75.5 ml/min; Est GFR (Non-African American) 65.2 ml/min; Magnesium 1.8 mg/dl (1.7-2.4); Potassium 4.2 mmol/L (3.5-5.1)
[2022-10-30] MEDS: DICYCLOMINE HCL 10 MG CAP PO PRN (12:32)
[2022-10-30] MEDS: ALUMINUM/MAGNESIUM SUSP 30 ML UDC PO PRN (12:32)
[2022-10-30] MEDS: LORazepam 0.5 MG TAB PO PRN ×2 (12:38→20:55)
--- NOTE | 2022-10-30 16:43 | CT Scan Report ---
ABDOMEN AND PELVIS CT WITHOUT CONTRAST CT DOSE: 317.19 mGycm HISTORY: Acute generalized abdominal pain Abd pain TECHNIQUE: Multiaxial CT images of the abdomen and pelvis were performed without contrast. A dose lo wering technique was utilized adhering to the principles of ALARA. COMPARISON STUDY: CT abdomen and pelvis 10/21/2022 07/12/2022, chest CT 10/22/2022. FINDINGS: Cardiomegaly with partially imaged pacer leads. Trace pleural effusions with mild dependent bibasilar compressive atelectasis. There are additional patchy groundglass opacities which are simil ar to the prior chest CT. No pneumatosis or pneumoperitoneum. The unenhanced spleen is unremarkable. Mildly atrophic pancreas. The adrenal glands are within normal limits. Cholecystectomy. Unremarkable liver which is mildly enlarged. Unremarkable kidneys without h ydronephrosis. Partially decompressed urinary bladder. Hysterectomy. Atherosclerosis of the aorta wit hout aneurysm. No lymphadenopathy identified. Small hiatal hernia. Clips are again noted within the g astric lumen. There is no bowel obstruction or bowel wall thickening. Colonic diverticulosis. Postope rative changes suggestive of partial hemicolectomy with ileocolic anastomosis. Degenerative changes o f the spine, pelvis and hips. Nondisplaced subacute to chronic anterior rib fractures. Anterolisthesi s L5 on S1 redemonstrated along with posterior joanne and screw fusion and discectomy. Unchanged appeara nce of the sclerotic changes at the T10-T11 interspace. A left flank battery pack is noted with spina l stimulator leads ending in the lower thoracic central canal extending superiorly outside the field- of-view. IMPRESSION: 1. No acute intra-abdominal or intrapelvic abnormality. 2. Trace pleural effusions with mild dependent bibasilar atelectasis. Additional patchy groundglass d ensities appear similar to the 10/22/2022 exam suggestive of viral pneumonia. 3. Healing subacute nondisplaced anterior rib fractures. 4. Additional findings as above. ACT 112: Negative or not required by law. The above report was generated using voice recognition software. It may contain grammatical, syntax o r spelling errors. Electronically signed by: Daniel Fitzgerald M.D. 10/30/2022 4:41 PM
--- NOTE | 2022-10-30 17:52 | Hospitalist Progress Note ---
Date of Service October 30, 2022 Assessment & Plan (1) Generalized weakness: (2) Dehydration: (3) COVID-19: (4) PAF (paroxysmal atrial fibrillation): Plan Per admitting service notes with addendum: This is a 81-year-old female who has significant past medical history of PAF not on anticoagulation due to history of GI bleed, tachybradycardia syndrome status post pacemaker in 2020, COPD, hypothyroidism, osteoporosis, fibromyalgia, chronic pain, back stimulator in place, ARTHUR on CPAP, HTN, HLD, ileocecal valve syndrome, CKD stage III, history rheumatoid arthritis, depression, history of partial colectomy who presents to ED secondary to worsening weakness and poor appetite x3 days. Patient recently admitted 10/22 to 10/25/2022 secondary to COVID-19 pneumonia and mild troponin elevation. She was treated with IV dexamethasone and oral doxycycline. Discharged on oral prednisone and doxycycline. Patient continues to experience weakness, poor appetite, headache and dehydration. She is unable to care for self at home and daughter unable to care for her as well. Generalized weakness Dehydration Mild renal insufficiency Admit to [facility] telemetry Dehydration supported with polycythemia and mild elevation in creatinine to 1.11 Continue IV fluid LR 75 cc/h for additional 2 bags PT/OT-recommended home Per recent therapy notes patient did not qualify for rehab; However daughter states to weak to manage at home Remains stable and likely will discharge in a day or 2 Left upper quadrant abdominal pain Severe pain as per the patient Has been going on for some time No associated symptoms of nausea no vomiting CT scan of the abdomen pelvis did show healing left anterior rib fracture Will try local diclofenac gel Recent COVID 19 Pneumonia COVID vaccinated and boosted twice per patient Elevated troponin (present during recent hospitalization) --CXR negative for infection --ECHO 10/22: Left ventricle is normal in size. Mild concentric LVH. Left ventricle wall motion is normal. EF 60 to 65%. Grade 1 diastolic dysfunction. Aortic valve sclerosis mild, without significant aortic valve stenosis. Trace mitral regurgitation. Mild tricuspid regurgitation. continue doxy for 2 more doses, off prednisone Saturating well on room air Continue isolation precautions trop still mildly bumped but much improved, no CP-no ACS will cycle trops for completeness No respiratory symptoms Left renal lesion incidentally noted during last admission --CT ABD:No acute abnormality in the abdomen or pelvis on noncontrast examination. Colonic diverticulosis without evidence of acute diverticulitis. In determinate 10 mm left renal lesion. This can be evaluated with MRI as clinically. Needs follow-up as outpatient Paroxysmal atrial fibrillation On flecainide Not on anticoagulation secondary to GI bleed ARTHUR CPAP at HS Hypertension BP on the lower side hold hctz and losartan Rheumatoid arthritis on Humira Depression on Lexapro. Hypothyroidism On levothyroxine GERD H/O Hiatal hernia Continue PPI Chronic diastolic congestive heart failure Monitor volume status Continue home diuretic H/O scoliosis, fibromyalgia S/P spinal cord stimulator placement by Dr. Healy Stimulator lead displacement Needs follow-up with Dr. Healy upon discharge to have removed DVT Px: Heparin SQ Full Code PCP: Mounika Dispo: Pending PT and OT evaluation in progress Patient prefers to be discharged to home with home health services if possible upon discharge Admission and Anticipated Discharge Date Admission Date: October 28, 2022 Subjective 10/30/2022 The patient was seen and examined in medical telemetry unit and in the COVID room She has been complaining of abdominal pain in the left upper quadrant associated with the left lower chest wall Denies any nausea and vomiting with it No diarrhea Review of Systems Review of Systems: All systems reviewed and are unremarkable except as noted below Physical Exam Physical Exam: Lying in bed comfortably Constitutional: well developed, well nourished and average body habitus; not ill appearing Eyes: PERRL, conjunctivae normal, anicteric sclerae ENMT: external ear and nose normal, oropharynx normal Neck: trachea midline, no thyromegaly Respiratory: no respiratory distress Auscultation: + diminished lung sounds (Bibasally especially on the left side) Cardiovascular: Rate/Rhythm: regular rate and regular rhythm; not tachycardic Heart Sounds: normal S1, normal S2 and + murmur Extremities: no edema Gastrointestinal (Abdomen): Inspection/Auscultation: normal bowel sounds; abdomen not distended Percussion/Palpation: abdomen soft; abdomen nontender Tender left lower chest wall anteriorly Musculoskeletal: No acute arthritis involving any joint Neurologic: Alert, awake and oriented x3. No focal sensory and motor deficit appreciated Lymphatic: no cervical or axillary lymphadenopathy Results & Data Results & Data Vital Signs (Past 12 Hours) Vital Signs Temp Pulse Pulse Resp BP Pulse Ox O2 Del Method 10/30/22 17:00 36.5 C 64 16 113/67 95 Room Air 10/30/22 15:13 63 10/30/22 11:53 36.9 C 60 18 108/65 93 Room Air 10/30/22 09:12 Room Air 10/30/22 07:48 36.8 C 63 16 121/67 93 Room Air 10/30/22 07:02 60 Laboratory Results Short CBC 10/30/22 Range/Units 07:49 WBC 5.85 (4.8-10.8) K/ul Hgb 11.8 L (12.0-16.0) g/dl Hct 34.9 L (37.0-47.0) % Plt Count 169 (130-400) K/uL BMP 10/30/22 07:49 Sodium 141 Potassium 4.2 Chloride 108 H Carbon Dioxide 30 BUN 22 Creatinine 0.85 Glucose 89 Calcium 8.4 L Medications Administered Current Inpatient Medications Acetaminophen (Acetaminophen 325 Mg Tab) 650 mg PO Q4H PRN PRN Reason: Pain or Fever Stop: 11/27/22 19:13 Last Admin: 10/29/22 13:20 Dose: 650 mg Hydrocodone Bitart/Acetaminophen (Hydrocodone/Acetaminophen 10/325 Tab) 1 tab PO Q8 PRN PRN Reason: Pain Stop: 11/11/22 19:13 Al Hydrox/Mg Hydrox/Simethicone (Aluminum/Magnesium Susp 30 Ml Udc) 15 ml PO Q4H PRN PRN Reason: Dyspepsia Stop: 11/27/22 19:13 Last Admin: 10/30/22 12:32 Dose: 15 ml Albuterol (Albuterol Hfa 8 Gm Inhaler) 2 puffs INH QID PRN PRN Reason: Shortness Of Breath Or Wheezing Stop: 11/27/22 19:13 Calcium/Vitamin D (Calcium 600mg + Vit D 400 Iu Tab) 1 tab PO DAILY [facility] Stop: 11/28/22 08:59 Last Admin: 10/30/22 08:36 Dose: 1 tab Dicyclomine HCl (Dicyclomine Hcl 10 Mg Cap) 10 mg PO TID PRN PRN Reason: Abdominal Pain Stop: 11/27/22 19:13 Last Admin: 10/30/22 12:32 Dose: 10 mg Escitalopram Oxalate (Escitalopram Oxalate 20 Mg Tab) 20 mg PO QAM [facility] Stop: 11/28/22 08:59 Last Admin: 10/30/22 08:38 Dose: 20 mg Famotidine (Famotidine 20 Mg Tab) 20 mg PO BID [facility] Stop: 11/27/22 20:59 Last Admin: 10/30/22 08:38 Dose: 20 mg Fentanyl (Fentanyl 25 Mcg/Hr Tdsy) 25 mcg TD Q72H [facility] Stop: 11/11/22 19:13 Last Admin: 10/28/22 21:00 Dose: 25 mcg Flecainide Acetate (Flecainide Acetate 100 Mg Tablet) 50 mg PO AMHS [facility] Stop: 11/27/22 20:59 Last Admin: 10/30/22 08:36 Dose: 50 mg Heparin Sodium (Porcine) (Heparin Sod 5,000 Unit/0.5 Ml Vial) 5,000 units SQ Q12 [facility] Stop: 11/27/22 20:59 Last Admin: 10/30/22 08:37 Dose: 5,000 units Levothyroxine Sodium (Levothyroxine Sodium 75 Mcg Tablet) 75 mcg PO Q2D@0630 [facility] Stop: 11/28/22 06:29 Last Admin: 10/29/22 05:46 Dose: 75 mcg Levothyroxine Sodium (Levothyroxine Sodium 50 Mcg Tablet) 50 mcg PO Q2D@0630 [facility] Stop: 11/29/22 06:29 Last Admin: 10/30/22 05:45 Dose: 50 mcg Lorazepam (Lorazepam 0.5 Mg Tab) 0.5 mg PO TID PRN PRN Reason: Anxiety Stop: 11/27/22 19:13 Last Admin: 10/30/22 12:38 Dose: 0.5 mg Losartan Potassium (Losartan Potassium 50 Mg Tab) 50 mg PO QAM [facility] Stop: 11/28/22 08:59 Last Admin: 10/29/22 08:00 Dose: 50 mg Magnesium Hydroxide (Magnesium Hydroxide Susp 30 Ml Udc) 30 ml PO Q12H PRN PRN Reason: Constipation Stop: 11/27/22 19:13 Miscellaneous (Nuvigil-Order Awaiting Action) 1 each N/A QS [facility] Stop: 11/28/22 00:00 Last Admin: 10/30/22 15:00 Dose: Not Given Miscellaneous (Check Fentanyl Patch Placement) 1 each N/A QS [facility] Stop: 11/28/22 00:00 Last Admin: 10/30/22 15:00 Dose: 1 each Miscellaneous (Fentanyl Patch Remove & Waste) 1 each N/A Q3D [facility] Stop: 11/27/22 19:58 Last Admin: 10/28/22 21:03 Dose: 1 each Multivitamins/Minerals (Cerovite Adv Formula Tab) 1 tab PO DAILY [facility] Stop: 11/28/22 08:59 Last Admin: 10/30/22 08:37 Dose: 1 tab Ondansetron HCl (Ondansetron Inj 2 Mg/Ml 2 Ml Vial) 4 mg IV Q6H PRN PRN Reason: Nausea Stop: 11/27/22 19:13 Pantoprazole Sodium (Pantoprazole 40 Mg Tab) 40 mg PO AMHS [facility] Stop: 11/27/22 20:59 Last Admin: 10/30/22 08:38 Dose: 40 mg Polyethylene Glycol (Polyethylene (Miralax) 17 Gm Pack) 17 gm PO DAILY PRN PRN Reason: Constipation Stop: 11/27/22 19:13
[2022-10-30] MEDS: ACETAMINOPHEN 325 MG TAB PO PRN (20:55)
[2022-10-30] MEDS: DICLOFENAC SOD 1% GEL 100 GM TUBE EXT SCH (20:56)
[2022-10-31] MEDS: CHECK fentaNYL PATCH PLACEMENT SCH ×3 (00:57→16:36)
[2022-10-31] MEDS: LEVOTHYROXINE SODIUM 75 MCG TABLET PO SCH (05:56)
[2022-10-31] MEDS: CEROVITE ADV FORMULA TAB PO SCH (08:38)
[2022-10-31] MEDS: CALCIUM 600MG + VIT D 400 IU TAB PO SCH (08:38)
[2022-10-31] MEDS: PANTOprazole 40 MG TAB PO SCH ×2 (08:38→21:05)
[2022-10-31] MEDS: DICYCLOMINE HCL 10 MG CAP PO PRN (08:38)
[2022-10-31] MEDS: ESCITALOPRAM OXALATE 20 MG TAB PO SCH (08:39)
[2022-10-31] MEDS: DICLOFENAC SOD 1% GEL 100 GM TUBE EXT SCH ×3 (08:39→21:02)
[2022-10-31] MEDS: HEPARIN SOD 5,000 UNIT/0.5 ML VIAL SQ SCH ×2 (08:40→21:06)
[2022-10-31] MEDS: FAMOTIDINE 20 MG TAB PO SCH ×2 (08:40→21:06)
[2022-10-31] MEDS: FLECAINIDE ACETATE 100 MG TABLET PO SCH ×2 (08:40→21:05)
--- NOTE | 2022-10-31 13:47 | Hospitalist Progress Note ---
Date of Service October 31, 2022 Assessment & Plan (1) Generalized weakness: (2) Dehydration: (3) COVID-19: (4) PAF (paroxysmal atrial fibrillation): Plan Per admitting service notes with addendum: This is a 81-year-old female who has significant past medical history of PAF not on anticoagulation due to history of GI bleed, tachybradycardia syndrome status post pacemaker in 2020, COPD, hypothyroidism, osteoporosis, fibromyalgia, chronic pain, back stimulator in place, ARTHUR on CPAP, HTN, HLD, ileocecal valve syndrome, CKD stage III, history rheumatoid arthritis, depression, history of partial colectomy who presents to ED secondary to worsening weakness and poor appetite x3 days. Patient recently admitted 10/22 to 10/25/2022 secondary to COVID-19 pneumonia and mild troponin elevation. She was treated with IV dexamethasone and oral doxycycline. Discharged on oral prednisone and doxycycline. Patient continues to experience weakness, poor appetite, headache and dehydration. She is unable to care for self at home and daughter unable to care for her as well. Generalized weakness Dehydration Mild renal insufficiency Admit to [facility] telemetry Dehydration supported with polycythemia and mild elevation in creatinine to 1.11 Continue IV fluid LR 75 cc/h for additional 2 bags PT/OT-recommended home Per recent therapy notes patient did not qualify for rehab; However daughter states to weak to manage at home Remains stable and likely will discharge in a day or 2 Stable without any acute symptoms Left upper quadrant abdominal pain Severe pain as per the patient Has been going on for some time No associated symptoms of nausea no vomiting CT scan of the abdomen pelvis did show healing left anterior rib fracture Will try local diclofenac gel- The pain seems to be improving Recent COVID 19 Pneumonia COVID vaccinated and boosted twice per patient Elevated troponin (present during recent hospitalization) --CXR negative for infection --ECHO 10/22: Left ventricle is normal in size. Mild concentric LVH. Left v entricle wall motion is normal. EF 60 to 65%. Grade 1 diastolic dysfunction. Aortic valve sclerosis mild, without significant aortic valve stenosis. Trace mitral regurgitation. Mild tricuspid regurgitation. continue doxy for 2 more doses, off prednisone Saturating well on room air Continue isolation precautions trop still mildly bumped but much improved, no CP-no ACS will cycle trops for completeness No respiratory symptoms Left renal lesion incidentally noted during last admission --CT ABD:No acute abnormality in the abdomen or pelvis on noncontrast examination. Colonic diverticulosis without evidence of acute diverticulitis. Indeterminate 10 mm left renal lesion. This can be evaluated with MRI as clinically. Needs follow-up as outpatient Paroxysmal atrial fibrillation On flecainide Not on anticoagulation secondary to GI bleed Rate is controlled and remains in sinus rhythm ARTHUR CPAP at HS Hypertension BP on the lower side hold hctz and losartan Rheumatoid arthritis on Humira Depression on Lexapro. Hypothyroidism On levothyroxine GERD H/O Hiatal hernia Continue PPI Chronic diastolic congestive heart failure Monitor volume status Continue home diuretic H/O scoliosis, fibromyalgia S/P spinal cord stimulator placement by Dr. Healy Stimulator lead displacement Needs follow-up with Dr. Healy upon discharge to have removed DVT Px: Heparin SQ Full Code PCP: Mounika Dispo: Pending PT and OT evaluation in progress Patient prefers to be discharged to home with home health services if possible upon discharge Admission and Anticipated Discharge Date Admission Date: October 28, 2022 Subjective 10/30/2022 The patient was seen and examined in medical telemetry unit and in the COVID room She has been complaining of abdominal pain in the left upper quadrant associated with the left lower chest wall Denies any nausea and vomiting with it No diarrhea 10/31/2022 The patient was seen and examined in medical telemetry unit and in the COVID room She remains generally weak and has been saturating on room air Her left upper abdominal pain is a little better Likely be discharged tomorrow Review of Systems Review of Systems: All systems reviewed and are unremarkable except as noted below Physical Exam Physical Exam: Lying in bed comfortably Constitutional: well developed, well nourished and average body habitus; not ill appearing Eyes: PERRL, conjunctivae normal, anicteric sclerae ENMT: external ear and nose normal, oropharynx normal Neck: trachea midline, no thyromegaly Respiratory: no respiratory distress Auscultation: + diminished lung sounds (Bibasally especially on the left side) Cardiovascular: Rate/Rhythm: regular rate and regular rhythm; not tachycardic Heart Sounds: normal S1, normal S2 and + murmur Extremities: no edema Gastrointestinal (Abdomen): Inspection/Auscultation: normal bowel sounds; abdomen not distended Percussion/Palpation: abdomen soft; abdomen nontender Musculoskeletal: No acute arthritis involving any joint Neurologic: Alert, awake and oriented x3. Generally very weak and lethargic Lymphatic: no cervical or axillary lymphadenopathy Results & Data Results & Data Vital Signs (Past 12 Hours) Vital Signs Temp Pulse Pulse Resp BP Pulse Ox O2 Del Method 10/31/22 10:33 Room Air 10/31/22 08:32 36.7 C 63 16 131/80 94 Room Air 10/31/22 06:01 75 10/31/22 04:00 36.7 C 60 16 122/73 92 Room Air Medications Administered Current Inpatient Medications Acetaminophen (Acetaminophen 325 Mg Tab) 650 mg PO Q4H PRN PRN Reason: Pain or Fever Stop: 11/27/22 19:13 Last Admin: 10/30/22 20:55 Dose: 650 mg Hydrocodone Bitart/Acetaminophen (Hydrocodone/Acetaminophen 10/325 Tab) 1 tab PO Q8 PRN PRN Reason: Pain Stop: 11/11/22 19:13 Al Hydrox/Mg Hydrox/Simethicone (Aluminum/Magnesium Susp 30 Ml Udc) 15 ml PO Q4H PRN PRN Reason: Dyspepsia Stop: 11/27/22 19:13 Last Admin: 10/30/22 12:32 Dose: 15 ml Albuterol (Albuterol Hfa 8 Gm Inhaler) 2 puffs INH QID PRN PRN Reason: Shortness Of Breath Or Wheezing Stop: 11/27/22 19:13 Calcium/Vitamin D (Calcium 600mg + Vit D 400 Iu Tab) 1 tab PO DAILY [facility] Stop: 11/28/22 08:59 Last Admin: 10/31/22 08:38 Dose: 1 tab Diclofenac Sodium (Diclofenac Sod 1% Gel 100 Gm Tube) 2 gm EXT TID MIKEY; Protocol Stop: 11/29/22 20:59 Last Admin: 10/31/22 08:39 Dose: 2 gm Dicyclomine HCl (Dicyclomine Hcl 10 Mg Cap) 10 mg PO TID PRN PRN Reason: Abdominal Pain Stop: 11/27/22 19:13 Last Admin: 10/31/22 08:38 Dose: 10 mg Escitalopram Oxalate (Escitalopram Oxalate 20 Mg Tab) 20 mg PO QAM [facility] Stop: 11/28/22 08:59 Last Admin: 10/31/22 08:39 Dose: 20 mg Famotidine (Famotidine 20 Mg Tab) 20 mg PO BID [facility] Stop: 11/27/22 20:59 Last Admin: 10/31/22 08:40 Dose: 20 mg Fentanyl (Fentanyl 25 Mcg/Hr Tdsy) 25 mcg TD Q72H [facility] Stop: 11/11/22 19:13 Last Admin: 10/28/22 21:00 Dose: 25 mcg Flecainide Acetate (Flecainide Acetate 100 Mg Tablet) 50 mg PO AMHS [facility] Stop: 11/27/22 20:59 Last Admin: 10/31/22 08:40 Dose: 50 mg Heparin Sodium (Porcine) (Heparin Sod 5,000 Unit/0.5 Ml Vial) 5,000 units SQ Q12 [facility] Stop: 11/27/22 20:59 Last Admin: 10/31/22 08:40 Dose: 5,000 units Levothyroxine Sodium (Levothyroxine Sodium 75 Mcg Tablet) 75 mcg PO Q2D@0630 [facility] Stop: 11/28/22 06:29 Last Admin: 10/31/22 05:56 Dose: 75 mcg Levothyroxine Sodium (Levothyroxine Sodium 50 Mcg Tablet) 50 mcg PO Q2D@0630 [facility] Stop: 11/29/22 06:29 Last Admin: 10/30/22 05:45 Dose: 50 mcg Lorazepam (Lorazepam 0.5 Mg Tab) 0.5 mg PO TID PRN PRN Reason: Anxiety Stop: 11/27/22 19:13 Last Admin: 10/30/22 20:55 Dose: 0.5 mg Losartan Potassium (Losartan Potassium 50 Mg Tab) 50 mg PO QAM [facility] Stop: 11/28/22 08:59 Last Admin: 10/29/22 08:00 Dose: 50 mg Magnesium Hydroxide (Magnesium Hydroxide Susp 30 Ml Udc) 30 ml PO Q12H PRN PRN Reason: Constipation Stop: 11/27/22 19:13 Miscellaneous (Nuvigil-Order Awaiting Action) 1 each N/A QS [facility] Stop: 11/28/22 00:00 Last Admin: 10/31/22 08:38 Dose: Not Given Miscellaneous (Check Fentanyl Patch Placement) 1 each N/A QS [facility] Stop: 11/28/22 00:00 Last Admin: 10/31/22 08:37 Dose: 1 each Miscellaneous (Fentanyl Patch Remove & Waste) 1 each N/A Q3D [facility] Stop: 04/26/23 19:58 Last Admin: 10/28/22 21:03 Dose: 1 each Multivitamins/Minerals (Cerovite Adv Formula Tab) 1 tab PO DAILY [facility] Stop: 11/28/22 08:59 Last Admin: 10/31/22 08:38 Dose: 1 tab Ondansetron HCl (Ondansetron Inj 2 Mg/Ml 2 Ml Vial) 4 mg IV Q6H PRN PRN Reason: Nausea Stop: 11/27/22 19:13 Pantoprazole Sodium (Pantoprazole 40 Mg Tab) 40 mg PO AMHS [facility] Stop: 11/27/22 20:59 Last Admin: 10/31/22 08:38 Dose: 40 mg Polyethylene Glycol (Polyethylene (Miralax) 17 Gm Pack) 17 gm PO DAILY PRN PRN Reason: Constipation Stop: 11/27/22 19:13
[2022-10-31] MEDS: fentaNYL 25 MCG/HR TDSY TD SCH (21:01)
[2022-11-01] MEDS: CHECK fentaNYL PATCH PLACEMENT SCH ×3 (00:35→16:29)
[2022-11-01] MEDS: LEVOTHYROXINE SODIUM 50 MCG TABLET PO SCH (05:33)
[2022-11-01] MEDS: ACETAMINOPHEN 325 MG TAB PO PRN (05:38)
[2022-11-01] MEDS: DICLOFENAC SOD 1% GEL 100 GM TUBE EXT SCH ×3 (09:28→21:01)
[2022-11-01] MEDS: CALCIUM 600MG + VIT D 400 IU TAB PO SCH (09:28)
[2022-11-01] MEDS: PANTOprazole 40 MG TAB PO SCH ×2 (09:28→21:02)
[2022-11-01] MEDS: FLECAINIDE ACETATE 100 MG TABLET PO SCH ×2 (09:28→21:03)
[2022-11-01] MEDS: FAMOTIDINE 20 MG TAB PO SCH ×2 (09:28→21:02)
[2022-11-01] MEDS: CEROVITE ADV FORMULA TAB PO SCH (09:28)
[2022-11-01] MEDS: ESCITALOPRAM OXALATE 20 MG TAB PO SCH (09:29)
[2022-11-01] MEDS: HEPARIN SOD 5,000 UNIT/0.5 ML VIAL SQ SCH ×2 (09:29→21:02)
--- NOTE | 2022-11-01 12:02 | Hospitalist Progress Note ---
Date of Service November 01, 2022 Assessment & Plan (1) Generalized weakness: (2) Dehydration: (3) COVID-19: (4) PAF (paroxysmal atrial fibrillation): Plan Per admitting service notes with addendum: This is a 81-year-old female who has significant past medical history of PAF not on anticoagulation due to history of GI bleed, tachybradycardia syndrome status post pacemaker in 2020, COPD, hypothyroidism, osteoporosis, fibromyalgia, chronic pain, back stimulator in place, ARTHUR on CPAP, HTN, HLD, ileocecal valve syndrome, CKD stage III, history rheumatoid arthritis, depression, history of partial colectomy who presents to ED secondary to worsening weakness and poor appetite x3 days. Patient recently admitted 10/22 to 10/25/2022 secondary to COVID-19 pneumonia and mild troponin elevation. She was treated with IV dexamethasone and oral doxycycline. Discharged on oral prednisone and doxycycline. Patient continues to experience weakness, poor appetite, headache and dehydration. She is unable to care for self at home and daughter unable to care for her as well. Generalized weakness Dehydration Mild renal insufficiency Admit to [facility] telemetry Dehydration supported with polycythemia and mild elevation in creatinine to 1.11 Continue IV fluid LR 75 cc/h for additional 2 bags PT/OT-recommended home Per recent therapy notes patient did not qualify for rehab; However daughter states to weak to manage at home Clinically much improved and does not require any oxygen at rest Advised to drink more fluid Left upper quadrant abdominal pain Severe pain as per the patient Has been going on for some time No associated symptoms of nausea no vomiting CT scan of the abdomen pelvis did show healing left anterior rib fracture Will try local diclofenac gel- Pain is controlled with diclofenac gel Recent COVID 19 Pneumonia COVID vaccinated and boosted twice per patient Elevated troponin (present during recent hospitalization) --CXR negative for infection --ECHO 10/22: Left ventricle is normal in size. Mild concentric LVH. Left ventricle wall motion is normal. EF 60 to 65%. Grade 1 diastolic dysfunction. Aortic valve sclerosis mild, without significant aortic valve stenosis. Trace mitral regurgitation. Mild tricuspid regurgitation. continue doxy for 2 more doses, off prednisone Saturating well on room air Continue isolation precautions trop still mildly bumped but much improved, no CP-no ACS will cycle trops for completeness No respiratory symptomsshe is out of isolation from today Discharged home this afternoon Left renal lesion incidentally noted during last admission --CT ABD:No acute abnormality in the abdomen or pelvis on noncontrast examination. Colonic diverticulosis without evidence of acute diverticulitis. Indeterminate 10 mm left renal lesion. This can be evaluated with MRI as clinically. Needs follow-up as outpatient Paroxysmal atrial fibrillation On flecainide Not on anticoagulation secondary to GI bleed Rate is controlled and seems to be in sinus rhythm ARTHUR CPAP at HS Hypertension BP on the lower side hold hctz and losartan Rheumatoid arthritis on Humira Depression on Lexapro. Hypothyroidism On levothyroxine GERD H/O Hiatal hernia Continue PPI Chronic diastolic congestive heart failure Monitor volume status Continue home diuretic H/O scoliosis, fibromyalgia S/P spinal cord stimulator placement by Dr. Healy Stimulator lead displacement Needs follow-up with Dr. Healy upon discharge to have removed DVT Px: Heparin SQ Full Code PCP: Mounika Dispo: Pending PT and OT evaluation in progress Patient prefers to be discharged to home with home health services if possible upon discharge She will be discharged home this afternoon and need to be discussed with the daughter Admission and Anticipated Discharge Date Admission Date: October 28, 2022 Subjective 10/30/2022 The patient was seen and examined in medical telemetry unit and in the COVID room She has been complaining of abdominal pain in the left upper quadrant associated with the left lower chest wall Denies any nausea and vomiting with it No diarrhea 10/31/2022 The patient was seen and examined in medical telemetry unit and in the COVID room She remains generally weak and has been saturating on room air Her left upper abdominal pain is a little better Likely be discharged tomorrow 11/01/2022 The patient was seen and examined in medical telemetry unit She has been stable and does not have any respiratory symptoms Heart pain in the left upper abdomen has improved Her weakness is getting better too Review of Systems Review of Systems: All systems reviewed and are unremarkable except as noted below Physical Exam Physical Exam: Lying in bed comfortably Constitutional: well developed, well nourished and average body habitus; not ill appearing Eyes: PERRL, conjunctivae normal, anicteric sclerae ENMT: external ear and nose normal, oropharynx normal Neck: trachea midline, no thyromegaly Respiratory: no respiratory distress Auscultation: + diminished lung sounds (Bibasally especially on the left side); no crackles and no wheezes Cardiovascular: Rate/Rhythm: regular rate and regular rhythm; not tachycardic Heart Sounds: normal S1, normal S2 and + murmur Extremities: no edema Gastrointestinal (Abdomen): Inspection/Auscultation: normal bowel sounds; abdomen not distended Percussion/Palpation: abdomen soft; abdomen nontender Musculoskeletal: No acute arthritis involving any of the joints Neurologic: Alert, awake and oriented x3. No focal sensory or motor deficit appreciated but she is generally weak . Psychiatric: A+Ox3, euthymic affect Lymphatic: no cervical or axillary lymphadenopathy Results & Data Results & Data Vital Signs (Past 12 Hours) Vital Signs Temp Pulse Pulse Resp BP Pulse Ox O2 Del Method 11/01/22 08:30 Room Air 11/01/22 08:00 36.6 C 62 18 146/80 H 97 Nasal Cannula 11/01/22 08:20 60 11/01/22 02:58 36.5 C 62 18 130/77 94 Room Air O2 Flow Rate 11/01/22 08:30 11/01/22 08:00 2 11/01/22 08:20 11/01/22 02:58 Medications Administered Current Inpatient Medications Acetaminophen (Acetaminophen 325 Mg Tab) 650 mg PO Q4H PRN PRN Reason: Pain or Fever Stop: 11/27/22 19:13 Last Admin: 11/01/22 05:38 Dose: 650 mg Hydrocodone Bitart/Acetaminophen (Hydrocodone/Acetaminophen 10/325 Tab) 1 tab PO Q8 PRN PRN Reason: Pain Stop: 11/11/22 19:13 Al Hydrox/Mg Hydrox/Simethicone (Aluminum/Magnesium Susp 30 Ml Udc) 15 ml PO Q4H PRN PRN Reason: Dyspepsia Stop: 11/27/22 19:13 Last Admin: 10/30/22 12:32 Dose: 15 ml Albuterol (Albuterol Hfa 8 Gm Inhaler) 2 puffs INH QID PRN PRN Reason: Shortness Of Breath Or Wheezing Stop: 11/27/22 19:13 Calcium/Vitamin D (Calcium 600mg + Vit D 400 Iu Tab) 1 tab PO DAILY [facility] Stop: 11/28/22 08:59 Last Admin: 11/01/22 09:28 Dose: 1 tab Diclofenac Sodium (Diclofenac Sod 1% Gel 100 Gm Tube) 2 gm EXT TID [facility]; Protocol Stop: 11/29/22 20:59 Last Admin: 11/01/22 09:28 Dose: 2 gm Dicyclomine HCl (Dicyclomine Hcl 10 Mg Cap) 10 mg PO TID PRN PRN Reason: Abdominal Pain Stop: 11/27/22 19:13 Last Admin: 10/31/22 08:38 Dose: 10 mg Escitalopram Oxalate (Escitalopram Oxalate 20 Mg Tab) 20 mg PO QAM [facility] Stop: 11/28/22 08:59 Last Admin: 11/01/22 09:29 Dose: 20 mg Famotidine (Famotidine 20 Mg Tab) 20 mg PO BID [facility] Stop: 11/27/22 20:59 Last Admin: 11/01/22 09:28 Dose: 20 mg Fentanyl (Fentanyl 25 Mcg/Hr Tdsy) 25 mcg TD Q72H [facility] Stop: 11/11/22 19:13 Last Admin: 10/31/22 21:01 Dose: 25 mcg Flecainide Acetate (Flecainide Acetate 100 Mg Tablet) 50 mg PO AMHS [facility] Stop: 11/27/22 20:59 Last Admin: 11/01/22 09:28 Dose: 50 mg Heparin Sodium (Porcine) (Heparin Sod 5,000 Unit/0.5 Ml Vial) 5,000 units SQ Q12 [facility] Stop: 11/27/22 20:59 Last Admin: 11/01/22 09:29 Dose: 5,000 units Levothyroxine Sodium (Levothyroxine Sodium 75 Mcg Tablet) 75 mcg PO Q2D@0630 [facility] Stop: 11/28/22 06:29 Last Admin: 10/31/22 05:56 Dose: 75 mcg Levothyroxine Sodium (Levothyroxine Sodium 50 Mcg Tablet) 50 mcg PO Q2D@0630 [facility] Stop: 11/29/22 06:29 Last Admin: 11/01/22 05:33 Dose: 50 mcg Lorazepam (Lorazepam 0.5 Mg Tab) 0.5 mg PO TID PRN PRN Reason: Anxiety Stop: 11/27/22 19:13 Last Admin: 10/30/22 20:55 Dose: 0.5 mg Losartan Potassium (Losartan Potassium 50 Mg Tab) 50 mg PO QAM [facility] Stop: 11/28/22 08:59 Last Admin: 10/29/22 08:00 Dose: 50 mg Magnesium Hydroxide (Magnesium Hydroxide Susp 30 Ml Udc) 30 ml PO Q12H PRN PRN Reason: Constipation Stop: 11/27/22 19:13 Miscellaneous (Nuvigil-Order Awaiting Action) 1 each N/A QS [facility] Stop: 11/28/22 00:00 Last Admin: 11/01/22 09:30 Dose: Not Given Miscellaneous (Check Fentanyl Patch Placement) 1 each N/A QS [facility] Stop: 11/28/22 00:00 Last Admin: 11/01/22 09:29 Dose: 1 each Miscellaneous (Fentanyl Patch Remove & Waste) 1 each N/A Q3D [facility] Stop: 11/27/22 19:58 Last Admin: 10/31/22 21:29 Dose: 1 each Multivitamins/Minerals (Cerovite Adv Formula Tab) 1 tab PO DAILY [facility] Stop: 11/28/22 08:59 Last Admin: 11/01/22 09:28 Dose: 1 tab Ondansetron HCl (Ondansetron Inj 2 Mg/Ml 2 Ml Vial) 4 mg IV Q6H PRN PRN Reason: Nausea Stop: 11/27/22 19:13 Pantoprazole Sodium (Pantoprazole 40 Mg Tab) 40 mg PO AMHS [facility] Stop: 11/27/22 20:59 Last Admin: 11/01/22 09:28 Dose: 40 mg Polyethylene Glycol (Polyethylene (Miralax) 17 Gm Pack) 17 gm PO DAILY PRN PRN Reason: Constipation Stop: 11/27/22 19:13
[2022-11-01] MEDS ORDERED: HYDROmorphone INJ 0.5 MG/0.5 ML SYR IV STA (14:19)
[2022-11-02] MEDS: CHECK fentaNYL PATCH PLACEMENT SCH ×2 (00:41→08:43)
[2022-11-02] MEDS: LEVOTHYROXINE SODIUM 75 MCG TABLET PO SCH (05:47)
--- NOTE | 2022-11-02 08:23 | Electrocardiogram Report ---
Test Reason : Blood Pressure : / mmHG Vent. Rate : 061 BPM Atrial Rate : 061 BPM P-R Int : 114 ms QRS Dur : 088 ms QT Int : 390 ms P-R-T Axes : 044 -20 024 degrees QTc Int : 392 ms Poor data quality, interpretation may be adversely affected Atrial-paced rhythm Abnormal ECG When compared with ECG of 28-OCT-2022 12:56, No significant change was found Confirmed by Ambrose Bates ([id number]) on 11/02/2022 8:23:29 AM Referred By: REFERRED SELF Confirmed By:Ambrose Bates
[2022-11-02] MEDS: CALCIUM 600MG + VIT D 400 IU TAB PO SCH (08:41)
[2022-11-02] MEDS: FLECAINIDE ACETATE 100 MG TABLET PO SCH (08:41)
[2022-11-02] MEDS: ESCITALOPRAM OXALATE 20 MG TAB PO SCH (08:41)
[2022-11-02] MEDS: FAMOTIDINE 20 MG TAB PO SCH (08:41)
[2022-11-02] MEDS: HEPARIN SOD 5,000 UNIT/0.5 ML VIAL SQ SCH (08:42)
[2022-11-02] MEDS: CEROVITE ADV FORMULA TAB PO SCH (08:42)
[2022-11-02] MEDS: PANTOprazole 40 MG TAB PO SCH (08:42)
[2022-11-02] MEDS: ALUMINUM/MAGNESIUM SUSP 30 ML UDC PO PRN (08:42)
[2022-11-02] MEDS: DICLOFENAC SOD 1% GEL 100 GM TUBE EXT SCH (08:42)
[2022-11-02] MEDS: LORazepam 0.5 MG TAB PO PRN (08:47)
--- NOTE | 2022-11-02 10:37 | Hospitalist Progress Note ---
Date of Service November 02, 2022 Assessment & Plan (1) Generalized weakness: (2) Dehydration: (3) COVID-19: (4) PAF (paroxysmal atrial fibrillation): Plan Per admitting service notes with addendum: This is a 81-year-old female who has significant past medical history of PAF not on anticoagulation due to history of GI bleed, tachybradycardia syndrome status post pacemaker in 2020, COPD, hypothyroidism, osteoporosis, fibromyalgia, chronic pain, back stimulator in place, ARTHUR on CPAP, HTN, HLD, ileocecal valve syndrome, CKD stage III, history rheumatoid arthritis, depression, history of partial colectomy who presents to ED secondary to worsening weakness and poor appetite x3 days. Patient recently admitted 10/22 to 10/25/2022 secondary to COVID-19 pneumonia and mild troponin elevation. She was treated with IV dexamethasone and oral doxycycline. Discharged on oral prednisone and doxycycline. Patient continues to experience weakness, poor appetite, headache and dehydration. She is unable to care for self at home and daughter unable to care for her as well. Generalized weakness Dehydration Mild renal insufficiency Admit to [facility] telemetry Dehydration supported with polycythemia and mild elevation in creatinine to 1.11 Continue IV fluid LR 75 cc/h for additional 2 bags PT/OT-recommended home Per recent therapy notes patient did not qualify for rehab; However daughter states to weak to manage at home Clinically much improved and does not require any oxygen at rest Remains medically stable with minimal epigastric discomfort no shortness of breath Has had chest pain yesterday 11/01/2022 Did have EKG and troponin which were unremarkable Denies any more pain since yesterday's episode Left upper quadrant abdominal pain Severe pain as per the patient Has been going on for some time No associated symptoms of nausea no vomiting CT scan of the abdomen pelvis did show healing left anterior rib fracture Will try local diclofenac gel- Pain is controlled with diclofenac gel Recent COVID 19 Pneumonia COVID vaccinated and boosted twice per patient Elevated troponin (present during recent hospitalization) --CXR negative for infection --ECHO 10/22: Left ventricle is normal in size. Mild concentric LVH. Left ventricle wall motion is normal. EF 60 to 65%. Grade 1 diastolic dysfunction. Aortic valve sclerosis mild, without significant aortic valve stenosis. Trace mitral regurgitation. Mild tricuspid regurgitation. continue doxy for 2 more doses, off prednisone Saturating well on room air Continue isolation precautions trop still mildly bumped but much improved, no CP-no ACS will cycle trops for completeness No respiratory symptomsshe is out of isolation from today Remains asymptomatic and will be discharged home this afternoon Left renal lesion incidentally noted during last admission --CT ABD:No acute abnormality in the abdomen or pelvis on noncontrast examination. Colonic diverticulosis without evidence of acute diverticulitis. Indeterminate 10 mm left renal lesion. This can be evaluated with MRI as clinically. Needs follow-up as outpatient Paroxysmal atrial fibrillation On flecainide Not on anticoagulation secondary to GI bleed Rate is controlled and seems to be in sinus rhythm ARTHUR CPAP at HS Hypertension BP on the lower side hold hctz and losartan Rheumatoid arthritis on Humira Depression on Lexapro. Hypothyroidism On levothyroxine GERD H/O Hiatal hernia Continue PPI Chronic diastolic congestive heart failure Monitor volume status Continue home diuretic H/O scoliosis, fibromyalgia S/P spinal cord stimulator placement by Dr. Healy Stimulator lead displacement Needs follow-up with Dr. Healy upon discharge to have removed DVT Px: Heparin SQ Full Code PCP: Mounika Dispo: Pending PT and OT evaluation in progress Patient prefers to be discharged to home with home health services if possible upon discharge Discharged home this afternoon Admission and Anticipated Discharge Date Admission Date: October 28, 2022 Subjective 10/30/2022 The patient was seen and examined in medical telemetry unit and in the COVID room She has been complaining of abdominal pain in the left upper quadrant associated with the left lower chest wall Denies any nausea and vomiting with it No diarrhea 10/31/2022 The patient was seen and examined in medical telemetry unit and in the COVID room She remains generally weak and has been saturating on room air Her left upper abdominal pain is a little better Likely be discharged tomorrow 11/01/2022 The patient was seen and examined in medical telemetry unit She has been stable and does not have any respiratory symptoms Heart pain in the left upper abdomen has improved Her weakness is getting better too 11/02/2022 The patient was seen and examined in medical telemetry unit She denies any more chest pain Her epigastric pain is persisting but gets better with oral antacid medication She denies any respiratory symptoms and does not have any diarrhea Review of Systems Review of Systems: All systems reviewed and are unremarkable except as noted below Physical Exam Physical Exam: Lying in bed comfortably Constitutional: well developed, well nourished and average body habitus; not ill appearing Eyes: PERRL, conjunctivae normal, anicteric sclerae ENMT: external ear and nose normal, oropharynx normal Neck: trachea midline, no thyromegaly Respiratory: no respiratory distress Auscultation: + diminished lung sounds (Bibasally especially on the left side); no crackles and no wheezes Cardiovascular: Rate/Rhythm: regular rate and regular rhythm; not tachycardic Heart Sounds: normal S1, normal S2 and + murmur Extremities: no edema Gastrointestinal (Abdomen): Inspection/Auscultation: normal bowel sounds; abdomen not distended Percussion/Palpation: abdomen soft; abdomen nontender Musculoskeletal: Denies any acute arthritis involving any of the joint Neurologic: normal touch/pain/proprioception and moves all extremities; no focal motor deficits Remains generally weak Psychiatric: A+Ox3, euthymic affect Lymphatic: no cervical or axillary lymphadenopathy Results & Data Results & Data Vital Signs (Past 12 Hours) Vital Signs Temp Pulse Pulse Resp BP Pulse Ox O2 Del Method 11/02/22 07:22 36.4 C L 65 18 134/76 94 Room Air 11/02/22 04:23 36.9 C 63 18 130/73 93 Room Air 11/01/22 23:00 36.6 C 63 18 114/69 93 Room Air 11/01/22 22:54 60 11/01/22 22:49 Room Air Medications Administered Current Inpatient Medications Acetaminophen (Acetaminophen 325 Mg Tab) 650 mg PO Q4H PRN PRN Reason: Pain or Fever Stop: 11/27/22 19:13 Last Admin: 11/01/22 05:38 Dose: 650 mg Hydrocodone Bitart/Acetaminophen (Hydrocodone/Acetaminophen 10/325 Tab) 1 tab PO Q8 PRN PRN Reason: Pain Stop: 11/11/22 19:13 Al Hydrox/Mg Hydrox/Simethicone (Aluminum/Magnesium Susp 30 Ml Udc) 15 ml PO Q4H PRN PRN Reason: Dyspepsia Stop: 11/27/22 19:13 Last Admin: 11/02/22 08:42 Dose: 15 ml Albuterol (Albuterol Hfa 8 Gm Inhaler) 2 puffs INH QID PRN PRN Reason: Shortness Of Breath Or Wheezing Stop: 11/27/22 19:13 Calcium/Vitamin D (Calcium 600mg + Vit D 400 Iu Tab) 1 tab PO DAILY [facility] Stop: 11/28/22 08:59 Last Admin: 11/02/22 08:41 Dose: 1 tab Diclofenac Sodium (Diclofenac Sod 1% Gel 100 Gm Tube) 2 gm EXT TID [facility]; Protocol Stop: 11/29/22 20:59 Last Admin: 11/02/22 08:42 Dose: 2 gm Dicyclomine HCl (Dicyclomine Hcl 10 Mg Cap) 10 mg PO TID PRN PRN Reason: Abdominal Pain Stop: 11/27/22 19:13 Last Admin: 10/31/22 08:38 Dose: 10 mg Escitalopram Oxalate (Escitalopram Oxalate 20 Mg Tab) 20 mg PO QAM [facility] Stop: 11/28/22 08:59 Last Admin: 11/02/22 08:41 Dose: 20 mg Famotidine (Famotidine 20 Mg Tab) 20 mg PO BID [facility] Stop: 11/27/22 20:59 Last Admin: 11/02/22 08:41 Dose: 20 mg Fentanyl (Fentanyl 25 Mcg/Hr Tdsy) 25 mcg TD Q72H [facility] Stop: 11/11/22 19:13 Last Admin: 10/31/22 21:01 Dose: 25 mcg Flecainide Acetate (Flecainide Acetate 100 Mg Tablet) 50 mg PO AMHS [facility] Stop: 11/27/22 20:59 Last Admin: 11/02/22 08:41 Dose: 50 mg Heparin Sodium (Porcine) (Heparin Sod 5,000 Unit/0.5 Ml Vial) 5,000 units SQ Q12 [facility] Stop: 11/27/22 20:59 Last Admin: 11/02/22 08:42 Dose: Not Given Levothyroxine Sodium (Levothyroxine Sodium 75 Mcg Tablet) 75 mcg PO Q2D@0630 [facility] Stop: 11/28/22 06:29 Last Admin: 11/02/22 05:47 Dose: 75 mcg Levothyroxine Sodium (Levothyroxine Sodium 50 Mcg Tablet) 50 mcg PO Q2D@0630 [facility] Stop: 11/29/22 06:29 Last Admin: 11/01/22 05:33 Dose: 50 mcg Lorazepam (Lorazepam 0.5 Mg Tab) 0.5 mg PO TID PRN PRN Reason: Anxiety Stop: 11/27/22 19:13 Last Admin: 11/02/22 08:47 Dose: 0.5 mg Losartan Potassium (Losartan Potassium 50 Mg Tab) 50 mg PO QAM [facility] Stop: 11/28/22 08:59 Last Admin: 10/29/22 08:00 Dose: 50 mg Magnesium Hydroxide (Magnesium Hydroxide Susp 30 Ml Udc) 30 ml PO Q12H PRN PRN Reason: Constipation Stop: 11/27/22 19:13 Miscellaneous (Nuvigil-Order Awaiting Action) 1 each N/A QS [facility] Stop: 11/28/22 00:00 Last Admin: 11/02/22 08:43 Dose: Not Given Miscellaneous (Check Fentanyl Patch Placement) 1 each N/A QS [facility] Stop: 11/28/22 00:00 Last Admin: 11/02/22 08:43 Dose: 1 each Miscellaneous (Fentanyl Patch Remove & Waste) 1 each N/A Q3D [facility] Stop: 11/27/22 19:58 Last Admin: 10/31/22 21:29 Dose: 1 each Multivitamins/Minerals (Cerovite Adv Formula Tab) 1 tab PO DAILY [facility] Stop: 11/28/22 08:59 Last Admin: 11/02/22 08:42 Dose: 1 tab Ondansetron HCl (Ondansetron Inj 2 Mg/Ml 2 Ml Vial) 4 mg IV Q6H PRN PRN Reason: Nausea Stop: 11/27/22 19:13 Pantoprazole Sodium (Pantoprazole 40 Mg Tab) 40 mg PO AMHS [facility] Stop: 11/27/22 20:59 Last Admin: 11/02/22 08:42 Dose: 40 mg Polyethylene Glycol (Polyethylene (Miralax) 17 Gm Pack) 17 gm PO DAILY PRN PRN Reason: Constipation Stop: 11/27/22 19:13
--- NOTE | 2022-11-02 16:00 | Discharge Summary ---
Date of Service November 02, 2022 Admission HPI Per Admitting Provider This is a 81-year-old female who has significant past medical history of PAF not on anticoagulation due to history of GI bleed, tachybradycardia syndrome status post pacemaker in 2020, COPD, hypothyroidism, osteoporosis, fibromyalgia, chronic pain, back stimulator in place, ARTHUR on CPAP, HTN, HLD, ileocecal valve syndrome, CKD stage III, history rheumatoid arthritis, depression, history of partial colectomy who presents to ED secondary to worsening weakness and poor appetite x3 days. Of significance patient was recently hospitalized on 10/22 to 10/25/2022 secondary to diagnosis of COVID-19. Her also had COVID-19. She was diagnosed with COVID-19 pneumonia. She did not require oxygenation. She was treated with IV dexamethasone and placed on oral doxycycline. She was then discharged on short course of oral prednisone. She did not meet criteria for remdesivir. Her procalcitonin and CRP were within normal limits. She was seen and evaluated by PT and OT who felt she was candidate to return home. She represents back today with her daughter at bedside. Since being discharged home she remains significantly weak, having difficulty walking and overall poor appetite. She continues to have off-and-on diarrhea. Daughter at bedside states that she has been making her eat as much as she can. Patient lives at home with her who is also elderly and has significant medical comorbidities of his own. Daughter is unable to care for both mother and father and due to persistent weakness brought back to the ER. In ED patient remained hemodynamically stable.Lab work significant for polycythemia with H&H 16.2 and 47.1 consistent with likely dehydration, elevated BUN at 24, increase of baseline creatinine to 1.11 and elevated troponin at 18.1. SARS-CoV-2 continued to be positive. Chest x-ray negative for any acute abnormality. In ED she received IV fluid as well as Tylenol. Currently patient admits to feeling weak and also complains of dizziness upon standing. She denies any dizziness or lightheadedness when sitting, fever, chills, sweats, chest pain, cough, shortness of breath, nausea, vomiting, abdominal pain. Her vomiting with COVID is since subsided but she does still get occasional dry heaves. Again continues to get diarrhea but denies of any bleeding. Overall urination has decreased but denies any dysuria, increased urgency or frequency or hematuria. Admission Exam Per Admitting Provider Physical Exam: Constitutional: Elderly, petite F, soft spoken, Nontoxic appearing, weak appearing, vitals as above, NAD, sitting up in bed, pleasant, conversing easily Head: Normocephalic, Atraumatic Eyes: PERRL, conjunctivae normal, anicteric sclerae ENMT: external ear and nose normal, oropharynx normal dry membranes Neck: trachea midline, no thyromegaly normal visual inspection Respiratory: normal respiratory effort, lungs clear to auscultation, no wheeze, rales, rhonchi. Normal insp/exp effort, no accessory muscle use Cardiovascular: RRR, no murmur, no edema Vessels: no JVD or carotid bruit Chest: normal inspection of chest Abdomen: normal bowel sounds, soft, nontender, no hepatosplenomegaly Musculoskeletal: no cyanosis or clubbing, extremities motor strength 5/5 Skin: no rashes, warm and dry normal turgor Neurologic: PERRL, EOMI, accommodation nl, no face palsy, no dysarthria CN's II-XI intact bilaterally and moves all extremities Psychiatric: A+Ox3, euthymic affect Lymphatic: no cervical or axillary lymphadenopathy : deferred Principal Diagnosis Generalized weakness, COVID-19 virus infection, PAF not on any anticoagulation Discharge Exam Lying in bed comfortably Constitutional well developed, well nourished and average body habitus; not ill appearing Eyes PERRL, conjunctivae normal, anicteric sclerae ENMT external ear and nose normal, oropharynx normal Neck trachea midline, no thyromegaly Respiratory no respiratory distress Auscultation: + diminished lung sounds (Bibasally especially on the left side); no crackles and no wheezes Cardiovascular Rate/Rhythm: regular rate and regular rhythm; not tachycardic Heart Sounds: normal S1, normal S2 and + murmur Extremities: no edema Gastrointestinal (Abdomen) Inspection/Auscultation: normal bowel sounds; abdomen not distended Percussion/Palpation: abdomen soft; abdomen nontender Neurologic normal touch/pain/proprioception and moves all extremities; no focal motor deficits Psychiatric A+Ox3, euthymic affect Lymphatic no cervical or axillary lymphadenopathy Discharge Data Allergies Allergy/AdvReac Type Severity Reaction Status Date / Time bee venom protein (honey bee) Allergy Intermediate "SWELLED Verified 10/21/22 22:33 ALL UP" Iodinated Contrast Media Allergy Intermediate PASSED Verified 10/21/22 22:33 OUT-BODY FELT COLD ALL OVER venlafaxine Allergy Unknown Unknown Verified 10/21/22 22:33 gabapentin AdvReac Intermediate HORRIBLE Verified 10/21/22 22:33 HEADACHES rosuvastatin [From Crestor] AdvReac Intermediate PAIN IN Verified 10/21/22 22:33 JOINTS atorvastatin AdvReac Mild PAIN IN Verified 10/21/22 22:33 JOINTS shellfish derived AdvReac Mild Headache Verified 10/21/22 22:33 Consultations 10/28/22 16:11 ED Decision to Admit Stat Ordered Studies 10/30/22 15:07 CT Abd and Pelvis [CT abd pelvis wo con] Routine Hospital Course (1) Generalized weakness: (2) Dehydration: (3) COVID-19: (4) PAF (paroxysmal atrial fibrillation): Plan Per admitting service notes with addendum: This is a 81-year-old female who has significant past medical history of PAF not on anticoagulation due to history of GI bleed, tachybradycardia syndrome status post pacemaker in 2020, COPD, hypothyroidism, osteoporosis, fibromyalgia, chronic pain, back stimulator in place, ARTHUR on CPAP, HTN, HLD, ileocecal valve syndrome, CKD stage III, history rheumatoid arthritis, depression, history of partial colectomy who presents to ED secondary to worsening weakness and poor appetite x3 days. Patient recently admitted 10/22 to 10/25/2022 secondary to COVID-19 pneumonia and mild troponin elevation. She was treated with IV dexamethasone and oral doxycycline. Discharged on oral prednisone and doxycycline. Patient continues to experience weakness, poor appetite, headache and dehydration. She is unable to care for self at home and daughter unable to care for her as well. Generalized weakness Dehydration Mild renal insufficiency Admit to med telemetry Dehydration supported with polycythemia and mild elevation in creatinine to 1.11 Continue IV fluid LR 75 cc/h for additional 2 bags PT/OT-recommended home Per recent therapy notes patient did not qualify for rehab; However daughter states to weak to manage at home Clinically much improved and does not require any oxygen at rest Remains medically stable with minimal epigastric discomfort no shortness of breath Has had chest pain yesterday 11/01/2022 Did have EKG and troponin which were unremarkable Denies any more pain since yesterday's episode Left upper quadrant abdominal pain Severe pain as per the patient Has been going on for some time No associated symptoms of nausea no vomiting CT scan of the abdomen pelvis did show healing left anterior rib fracture Will try local diclofenac gel- Pain is controlled with diclofenac gel Recent COVID 19 Pneumonia COVID vaccinated and boosted twice per patient Elevated troponin (present during recent hospitalization) --CXR negative for infection --ECHO 10/22: Left ventricle is normal in size. Mild concentric LVH. Left ventricle wall motion is normal. EF 60 to 65%. Grade 1 diastolic dysfunction. Aortic valve sclerosis mild, without significant aortic valve stenosis. Trace mitral regurgitation. Mild tricuspid regurgitation. continue doxy for 2 more doses, off prednisone Saturating well on room air Continue isolation precautions trop still mildly bumped but much improved, no CP-no ACS will cycle trops for completeness No respiratory symptomsshe is out of isolation from today Remains asymptomatic and will be discharged home this afternoon Left renal lesion incidentally noted during last admission --CT ABD:No acute abnormality in the abdomen or pelvis on noncontrast examination. Colonic diverticulosis without evidence of acute diverticulitis. Indeterminate 10 mm left renal lesion. This can be evaluated with MRI as clinically. Needs follow-up as outpatient Paroxysmal atrial fibrillation On flecainide Not on anticoagulation secondary to GI bleed Rate is controlled and seems to be in sinus rhythm ARTHUR CPAP at HS Hypertension BP on the lower side hold hctz and losartan Rheumatoid arthritis on Humira Depression on Lexapro. Hypothyroidism On levothyroxine GERD H/O Hiatal hernia Continue PPI Chronic diastolic congestive heart failure Monitor volume status Continue home diuretic H/O scoliosis, fibromyalgia S/P spinal cord stimulator placement by Dr. Healy Stimulator lead displacement Needs follow-up with Dr. Healy upon discharge to have removed DVT Px: Heparin SQ Full Code PCP: M[facility] Dispo: Pending PT and OT evaluation in progress Patient prefers to be discharged to home with home health services if possible upon discharge Discharged home this afternoon Total Time Total Time Spent Total Time Spent (In Minutes): 35 minutes Discharge Plan Discharge Items Patient Disposition: Home - Self-Care Reason For Visit: WEAKNESS, DEHYDRATION Discharge Diagnosis: Generalized weakness, COVID-19 virus infection, PAF not on any anticoagulation Condition on Discharge: Fair Activity: Resume your previous activity Non-emergency contact: Primary Care Provider Call non-emergency contact if: you have any medication questions and your symptoms worsen Follow-up/Referrals: Ernestina Swanson, DO [Outside Practitioners] - (Date & Time 11/04/2022 11:20 AM Provider Gurwinder Sherwood MD Department Family Medicine [facility] ) Diet: Regular Addtl Attending Provider Instructions: Please take precautions to avoid falls Take your medications as advised Please keep appointment with your healthcare providers Try [id number] Tums 2 tablet 2-3 times as needed for stomach upset Always try to use less of your narcotic pain medications Try to avoid using hydroxyzine and meclizine until and unless you really need dose These medications are causing you to be generally more weak and lethargic Pending Studies at Discharge: No Stand-Alone Forms: My [facility] [employer], Smoking Cessation Medications and DC Order Prescriptions: New diclofenac sodium [Voltaren Arthritis Pain] 1 % Gel 2 g EXT TID Qty: 50 0RF Continued armodafinil [Nuvigil] 250 mg Tablet 250 mg PO QAM calcium-vitamin D3-vitamin K [Viactiv] 650 mg-12.5 mcg-40 mcg Tablet,Chewable 2 tab PO DAILY hydrocodone-acetaminophen 10-325 mg Tablet 1 tab PO Q8 PRN (Reason: Pain) lorazepam 0.5 mg Tablet 0.5 mg PO TID PRN (Reason: Anxiety) pantoprazole 40 mg Tablet,Delayed Release (Dr/Ec) 40 mg PO [facility]HS levothyroxine 50 mcg Tablet 50 mcg PO Q2D Rx Instructions: ALTERNATE WITH 75MCG losartan 50 mg tablet 50 mg PO QAM PreserVision AREDS 2 Plus MV 200 mcg-15 mcg- 5 mg-1 mg Capsule 1 cap PO [facility]HS polyethylene glycol 3350 [Miralax] 17 gram powder in packet 17 g PO UD PRN (Reason: Constipation) flecainide 50 mg tablet 50 mg PO [facility]HS albuterol sulfate 90 mcg/actuation HFA aerosol inhaler 2 puff INHALATION QID PRN (Reason: Shortness Of Breath Or Wheezing) escitalopram oxalate 20 mg tablet 20 mg PO QAM Sore Throat (phenol) 1.4 % Aerosol,[place] 1 spray MT TID PRN (Reason: sore throat) Qty: 1 0RF famotidine 20 mg Tablet 20 mg PO BID Qty: 20 0RF prednisone 10 mg tablet 10 mg PO UD Qty: 6 0RF Rx Instructions: Take prednisone 20 mg daily for 2 days, then take 10 mg daily for 2 days and stop levothyroxine 75 mcg Tablet 75 mcg PO Q2D Rx Instructions: ALTERNATE WITH 50MCG acetaminophen 325 mg Tablet 650 mg PO Q6H PRN (Reason: fever or pain) Qty: 100 0RF hydrochlorothiazide 12.5 mg capsule 12.5 mg PO QAM fentanyl 25 mcg/hr patch 72 hour 25 mcg transdermal Q72H Rx Instructions: took off today and didnt replace yet dicyclomine 10 mg capsule 10 mg PO TID PRN (Reason: Abdominal Pain) Humira 40 mg/0.8 mL Syringe Kit 40 mg SUBCUT Q7D Rx Instructions: sat Discontinued meclizine 25 mg Tablet 25 mg PO TID PRN (Reason: Dizziness) hydroxyzine HCl 25 mg Tablet 25 - 50 mg PO HS PRN (Reason: Itching) doxycycline hyclate 100 mg Capsule 100 mg PO BID@0700,1900 Qty: 7 0RF Discharge Orders: Discharge Order (Routine); Ordered 11/02/22 Ordered By: Mari Santillan/Other Patient Handouts: Dehydration Admission Data Admit Date/Time: 10/28/22 17:08 Attending Provider: Mari Blackmon Admit Provider: Mari Blackmon Primary Care Provider: Ambrose Ribera Other Providers: Mari Blackmon ; Rickey Stuart Other Interventions: Discharge Summary Assessment (RN) Last Done: 11/02/22 12:22
== END 2022-11-02 13:46 | disposition home or self-care (01) | DRG 178 ==
LOC: ED 12:14 → 2W 17:08 → INTOOBSV 17:08 → SUATTDRO 17:08 → 2W 18:04

== ENCOUNTER 2023-09-30 12:07 | Inpatient (IN) ==
--- NOTE | 2023-09-30 13:18 | XRay Report ---
SINGLE VIEW CHEST CLINICAL HISTORY: Atypical chest pain. FINDINGS: A PA chest radiograph is compared to study dated 08/05/2023. Correlation is made with chest C T dated 10/22/2022. A 2-lead cardiac pacemaker is unchanged in position and partially obscures the lef t lower chest. The heart is enlarged. The pulmonary vasculature is noncongested. Chronic interstitial thickening since previous. There is bibasilar scarring/atelectasis. No airspace consolidation or lar ge pleural effusion is identified. No pneumothorax is seen. The skeletal structures are osteopenic. T here are chronic/healed left-sided rib fractures. A left shoulder arthroplasty is in near anatomic al ignment. Advanced arthritic change is seen in the right shoulder. Degenerative change and scoliosis i s seen in the spine. Fusion hardware is partially imaged in the lumbar region. Surgical clips project over the stomach. IMPRESSION: 1. Cardiomegaly and cardiac pacemaker without radiographic evidence of congestive failure. 2. No airspace consolidation or large pleural effusion is identified. ACT 112: Negative or not required by law. Electronically signed by: Alexi Avendano M.D. 09/30/2023 1:17 PM
[2023-09-30 13:39] LABS: Basophils # (auto) 0.07 K/uL (0.00-0.20); Eosinophils # (auto) 0.46 K/uL (0.00-0.50); Eosinophils % (auto) 6.6 %; Hematocrit (blood only) 37.2 % (37.0-47.0); Immature Granulocytes # (auto) 0.03 K/uL (0.01-0.20); Immature Granulocytes % (auto) 0.4 %; Lymphocytes # (auto) 1.51 K/uL (1.20-3.40); Lymphocytes % (auto) 21.7 %; Mean Corpuscular Hemoglobin 30.8 pg (25.0-34.0); Mean Corpuscular Hgb Conc 32.3 g/dL (32.0-36.0); Mean Corpuscular Volume 95.6 fL (80.0-100.0); Monocytes # (auto) 0.68 K/uL (0.11-0.59); Monocytes % (auto) 9.8 %; Neutrophils # (auto) 4.21 K/uL (1.40-6.50); Neutrophils % (auto) 60.5 %; Platelet Count 228 K/uL (130-400); RDW Coefficient of Variation 13.4 % (11.5-14.5); RDW Standard Deviation 47.5 fL (36.4-46.3); Red Blood Count 3.89 M/uL (4.20-5.40); White Blood Count 6.96 K/ul (4.8-10.8)
[2023-09-30 13:49] LABS: Alanine Aminotransferase 19 U/L (7-52); Albumin Globulin Ratio 1.3 (0.9-2); Albumin Level 3.8 gm/dl (3.4-5.0); Alkaline Phosphatase 54 U/L (34-104); Anion Gap 4 (3-11); Aspartate Aminotransferase 25 U/L (13-39); BUN Creatinine Ratio 28.2 (10-20); Bilirubin,Total 0.5 mg/dl (0.2-1.0); Blood Urea Nitrogen 24 mg/dl (6-23); Calcium 9.9 mg/dl (8.6-10.3); Carbon Dioxide 28 mmol/L (21-32); Chloride 108 mmol/L (98-107); Est GFR (Non-African American) 64.7 ml/min; Globulin 2.9 gm/dl (2.5-4.0); Glucose 111 mg/dl (70-99(Fasting)); Potassium 4.4 mmol/L (3.5-5.1); Sodium 140 mmol/L (136-145); Total Protein 6.7 gm/dl (6.0-8.3)
[2023-09-30 13:52] LABS: Troponin I High Sensitivity 7.9 pg/ml (0-14)
[2023-09-30 13:57] LABS: Partial Thromboplastin Ratio 0.9; Partial Thromboplastin Time 24 Seconds (21-31)
--- NOTE | 2023-09-30 14:00 | Electrocardiogram Report ---
Test Reason : Blood Pressure : / mmHG Vent. Rate : 066 BPM Atrial Rate : 066 BPM P-R Int : 124 ms QRS Dur : 084 ms QT Int : 386 ms P-R-T Axes : 054 -17 017 degrees QTc Int : 404 ms Normal sinus rhythm Normal ECG When compared with ECG of 05-AUG-2023 15:03, Sinus rhythm has replaced Electronic atrial pacemaker Confirmed by Praneeth Quiroga ([id number]) on 09/30/2023 2:00:02 PM Referred By: Confirmed By:Praneeth Quiroga
--- NOTE | 2023-09-30 17:30 | Emergency Department Note ---
History of Present Illness General Chief Complaint: Chest Pain Stated Complaint: CHEST PAIN Time Seen by Provider: 09/30/23 16:02 History of Present Illness Provider Complaint: chest pain Onset (ago): day(s) 3 Duration: intermittent Onset: during rest Pain Location: left chest Pain Radiation: none Severity: moderate Maximum Pain Intensity: 6 Current Pain Intensity: 6 Quality: + aching, + sharp and + dull Relieved By: + nothing Exacerbated By: + nothing Context: + recent travel and + history of DVT/PE (Patient states her symptoms feel similar to her prior PE. Not on any blood thinners); no recent illness, no recent surgery, no recent immobilization or no trauma/injury Associated symptoms: no nausea, no vomiting, no diaphoresis, no dyspnea, no syncope, no palpitations, no fever, no cough or no leg swelling Home Medications Medication Instructions Recorded Confirmed Type calcium 650 mg-vitamin D3 12.5 2 tab PO DAILY 03/05/19 09/30/23 History mcg-vitamin K 40 mcg chewable tablet (Viactiv) levothyroxine 75 mcg tablet 75 mcg PO Q2D 11/02/20 09/30/23 History hydrocodone 10 mg-acetaminophen 1 tab PO Q4 PRN Pain 01/30/21 09/30/23 History 325 mg tablet levothyroxine 50 mcg tablet 50 mcg PO Q2D 01/30/21 09/30/23 History lorazepam 0.5 mg tablet 0.5 mg PO BID Anxiety 01/30/21 09/30/23 History pantoprazole 40 mg tablet,delayed 40 mg PO BID 01/30/21 09/30/23 History release dicyclomine 10 mg capsule 10 mg PO QID Abdominal Pain 04/11/22 09/30/23 History adalimumab 40 mg/0.8 mL 40 mg subcut WK 04/12/22 09/30/23 History subcutaneous syringe kit (Humira) mv-mn-folic 200 mcg-vit K 15 1 cap PO BID 10/21/22 09/30/23 History mcg-lutein 5 mg-zeaxanthin 1 mg capsule (PreserVision AREDS 2 Plus Multivit) polyethylene glycol 3350 17 gram 17 g PO UD PRN Constipation 10/21/22 09/30/23 History oral powder packet (Miralax) metoprolol succinate 25 mg 25 mg PO QAM 11/18/22 09/30/23 History tablet,extended release 24 hr fentanyl 25 mcg/hr transdermal 1 patch transdermal Q72H 05/14/23 09/30/23 History patch sucralfate 100 mg/mL oral 5 ml PO DAILY PRN Abdominal Pain 05/14/23 09/30/23 History suspension biotin 10,000 mcg capsule 10,000 mcg PO QPM 06/11/23 09/30/23 History multivitamin-ferrous 1 tab PO QAM 06/11/23 09/30/23 History fumarate-folic acid 18 mg-400 mcg tablet (Centrum) duloxetine 60 mg capsule,delayed 60 mg PO DAILY 09/30/23 09/30/23 History release famotidine 20 mg tablet 20 mg PO BID 09/30/23 09/30/23 History furosemide 20 mg tablet 20 mg PO DAILY 09/30/23 09/30/23 History lisinopril 10 mg tablet 10 mg PO QAM 09/30/23 09/30/23 History sucralfate 100 mg/mL oral 1 g PO QID 09/30/23 09/30/23 History suspension Allergies Allergy/AdvReac Type Severity Reaction Status Date / Time bee venom protein (honey bee) Allergy Severe "SWELLED Verified 08/05/23 18:47 ALL UP" Iodinated Contrast Media Allergy Intermediate PASSED Verified 08/05/23 18:47 OUT-BODY FELT COLD ALL OVER venlafaxine Allergy Unknown Unknown Verified 08/05/23 18:47 atorvastatin AdvReac Intermediate PAIN IN Verified 08/05/23 18:47 JOINTS gabapentin AdvReac Intermediate HORRIBLE Verified 08/05/23 18:47 HEADACHES rosuvastatin [From Crestor] AdvReac Intermediate PAIN IN Verified 08/05/23 18:47 JOINTS shellfish derived AdvReac Intermediate Headache Verified 08/05/23 18:47 Past Med/Surg History Medical History STEPHANIE (generalized anxiety disorder) Major depressive disorder, recurrent, severe without psychotic features Chronic pain syndrome sees specialist in [place] History of pelvic fracture 04/2023, due to a fall Anxiety Depression Hx of fall ~02/2023, [facility], fx ribs 7-10 and punctured her left lung-had chest tube placed>in hospital for 3-4 days>rib fx have all healed ~04/2023, found pelvic fracture during hip x-ray ~05/30/23>still has bruising on different areas of her body, "cracked the ball joint bone in my right shoulder" and laceration of her arm has had multiple falls over the years Lumbar spondylosis On home oxygen therapy 2 LPM in day 4 LPM at >prn Spinal cord stimulator status removed History of COVID-19 10/28/22 > hospitalized at [facility] > loss of taste and smell, cough, fatigue>still fatigued Basal cell carcinoma REMOVED HTN (hypertension) Tachy-sheryl syndrome Urge incontinence of urine Nutcracker esophagus Pancreatic insufficiency Shortness of breath with activity Paroxysmal atrial fibrillation pacer > follows with Dr. Rodriguez in [place] > no thinners can't tolerate per pt Pacemaker Medtronic > placed November 2020, [facility] > placed for Afib; f/u dr. rodriguez, [place] JUDI (iron deficiency anemia) Dyslipidemia History of skin cancer removed GERD (gastroesophageal reflux disease) Scoliosis Age related osteoporosis Fibromyalgia Hx of sleep apnea cpap History of concussion MAY 2018 - 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 GETS HEADACHES FROM and falls Rheumatoid arthritis Osteoarthritis Hypothyroidism Surgical History History of eye surgery LASER History of bilateral cataract extraction History of colonoscopy History of total left knee replacement History of rectocele REPAIR WITH MESH AND MESH SINCE REMOVED History of laparoscopic cholecystectomy History of right knee surgery bursa sac removed History of lumbar fusion History of endoscopy DILATION OF ESOPHAGUS History of repair of hiatal hernia History of cardiac cath 2018..CHEST PAIN...[place]TOONA - NO FINDINGS...HIATAL HERNIA DX S/P repair of paraesophageal hernia History of partial colectomy S/P lumbar fusion History of repair of right rotator cuff History of bladder suspension procedure History of appendectomy History of partial hysterectomy Family History Sister Colorectal cancer Hypertension Mother Stroke Hypertension Other No pertinent family history Social History Smoking Status: Never smoker Second Hand Exposure: No; Do You Dip or Chew Tobacco: No; Hx Alcohol Use: No Hx Substance Use: No Preferred Language: Turkmen Communication Ability: Effective Visual Impairment: No Limitations Hearing Ability: Normal Optical Glass Inspector Required: No Beliefs That Will Affect Care: None marital status: Current Living Situation: Family Current Living Situation Comment: current occupational status: retired Feels Safe at Home: Yes Safety Concerns: Feels Safe At This Time Gender Identity: Female Assistive Devices: Cane, Denture - Upper, Denture - Lower, Glasses and Walker Physical Exam Vital Signs Vital Signs - 24 hr 09/30/23 12:13 09/30/23 15:53 09/30/23 16:00 Temperature 36.3 C L Temperature Source Temporal Artery Scan Pulse Rate 81 71 Pulse Rate [Apical] 74 Pulse Rhythm [Apical] Regular Pulse Strength [Apical] Normal Respiratory Rate 20 18 Respiratory Effort / Characteristics Non-Labored Spontaneous Respiratory Depth Normal Respiratory Pattern Regular Blood Pressure 113/67 Blood Pressure [Left Arm] 122/48 L Blood Pressure Mean 82 Blood Pressure Mean [Left Arm] 72 Pulse Oximetry 96 98 Oxygen Delivery Method Room Air Room Air Sepsis Recent Fever Within 48 Hours No Sepsis New/Unexplained Change in Mental Status N/A Sepsis Action Taken by Nursing No Action Required 09/30/23 16:56 09/30/23 18:58 09/30/23 19:11 Temperature Temperature Source Pulse Rate Pulse Rate [Apical] 92 H 99 H Pulse Rhythm [Apical] Pulse Strength [Apical] Respiratory Rate 19 24 Respiratory Effort / Characteristics Non-Labored Spontaneous Non-Labored Spontaneous Respiratory Depth Normal Normal Respiratory Pattern Regular Blood Pressure Blood Pressure [Left Arm] 110/46 L 144/88 H Blood Pressure Mean Blood Pressure Mean [Left Arm] 67 106 Pulse Oximetry 92 93 93 Oxygen Delivery Method Room Air Room Air Room Air Sepsis Recent Fever Within 48 Hours Sepsis New/Unexplained Change in Mental Status Sepsis Action Taken by Nursing 09/30/23 19:12 09/30/23 19:15 09/30/23 19:30 Temperature Temperature Source Pulse Rate Pulse Rate [Apical] 98 H 92 H Pulse Rhythm [Apical] Pulse Strength [Apical] Respiratory Rate 24 19 Respiratory Effort / Characteristics Non-Labored Spontaneous Non-Labored Spontaneous Non-Labored Spontaneous Respiratory Depth Normal Normal Normal Respiratory Pattern Blood Pressure Blood Pressure [Left Arm] 155/81 H 160/90 H Blood Pressure Mean Blood Pressure Mean [Left Arm] 105 113 Pulse Oximetry 93 94 Oxygen Delivery Method Room Air Room Air Sepsis Recent Fever Within 48 Hours Sepsis New/Unexplained Change in Mental Status Sepsis Action Taken by Nursing 09/30/23 19:30 09/30/23 19:44 09/30/23 19:45 Temperature Temperature Source Pulse Rate 96 H Pulse Rate [Apical] 96 H Pulse Rhythm [Apical] Pulse Strength [Apical] Respiratory Rate 25 H 14 Respiratory Effort / Characteristics Non-Labored Spontaneous Non-Labored Spontaneous Respiratory Depth Normal Normal Respiratory Pattern Blood Pressure Blood Pressure [Left Arm] 160/82 H 152/82 H Blood Pressure Mean Blood Pressure Mean [Left Arm] 108 105 Pulse Oximetry 93 96 Oxygen Delivery Method Room Air Room Air Sepsis Recent Fever Within 48 Hours Sepsis New/Unexplained Change in Mental Status Sepsis Action Taken by Nursing 09/30/23 20:00 Temperature Temperature Source Pulse Rate Pulse Rate [Apical] 99 H Pulse Rhythm [Apical] Pulse Strength [Apical] Respiratory Rate 20 Respiratory Effort / Characteristics Non-Labored Spontaneous Respiratory Depth Normal Respiratory Pattern Blood Pressure Blood Pressure [Left Arm] 154/76 H Blood Pressure Mean Blood Pressure Mean [Left Arm] 102 Pulse Oximetry 96 Oxygen Delivery Method Room Air Sepsis Recent Fever Within 48 Hours Sepsis New/Unexplained Change in Mental Status Sepsis Action Taken by Nursing Physical Exam GENERAL: oriented to person, place, and time. appears well-developed and well- nourished. HENT: Exam performed. - Head: Normocephalic and atraumatic. EYES: Conjunctivae and EOM are normal. Right eye exhibits no discharge. Left eye exhibits no discharge. No scleral icterus. NECK: Normal range of motion. Neck supple. No JVD present. CV: Normal rate, regular rhythm, normal heart sounds and intact distal pulses. There is no peripheral edema. Palpable radial pulses bue. PULM/CHEST: Effort normal and breath sounds normal. No respiratory distress. No stridor. no wheezes. no rales. ABD: The abdomen is soft. There is no tenderness. NEURO: Motor and sensation grossly intact. SKIN: Skin is warm and dry. He is not diaphoretic. PSYCH: normal mood and affect. Behavior is normal. Judgment and thought content normal. Course Course 160: The patient was evaluated in room A2. A complete history and physical exam was performed Cardiac monitoring: An order was placed for continuous cardiac monitoring. The monitor shows a rate of 90 with sinus rhythm interpreted by me Patient was seen during a time of extreme volume and extreme acuity in the emergency department. Nursing triage protocols were initiated and labs were drawn by protocol in the triage area. Patient is concerned about PE. Will order D-dimer as well as repeat troponin. Patient has a listed contrast to iodinated contrast but states that she has had CT scans with contrast in the past and has tolerated prep with steroids and Benadryl the night before well to obtain CT images with contrast. 1750: D-dimer elevated. Solu-Medrol and Benadryl ordered for the patient to obtain CTA of the chest. 1808: Called to bedside by nursing. Nursing reports that the patient is more confused. I immediately went to go evaluate the patient and the patient was having difficulty speaking difficulty moving her legs. This is very different from when she initially presented and she gave a full history. Accu-Chek of 70. Code stroke alert called. 1827: CT of the head viewed by me shows no ICH. Awaiting to speak with [facility]. Applied Psychology Professor stated that [facility] doctor is involved in another case as well as the backup [facility] doctor. 1899: Dr. Mina evaluated the patient and spoke with the daughter at bedside. Patient's speech did improve somewhat from her initial symptom onset at 1808 however the patient still slurring her words still unable to write still not oriented. Dr. Warner Leblanc family patient and I agree that the patient would be a good TNK candidate. TNKase administered at 1899. Patient was developing hives and itching after the contrast. Dr. Leblanc states that the patient can get additional 25 mg of Benadryl. He also recommends magnesium 2 g to be ordered for the patient. Patient will be admitted to the ICU. Administered Medications Famotidine (Famotidine 20 Mg Tab) 20 mg PO BID [facility] Stop: 10/30/23 21:10 Last Admin: 09/30/23 22:17 Dose: 20 mg Documented By: [id number] Sodium Chloride (Nss) 1,000 mls @ 100 mls/hr IV .Q10H ONE Stop: 10/01/23 06:59 Last Admin: 09/30/23 21:25 Dose: 100 mls/hr Documented By: [id number] Miscellaneous (Icu Protocol For Hyperglycemia) 1 each N/A ACHS MIKEY Stop: 10/02/23 21:10 Last Admin: 09/30/23 22:44 Dose: Not Given Documented By: [id number] Pantoprazole Sodium (Pantoprazole 40 Mg Tab) 40 mg PO BID [facility] Stop: 10/30/23 21:10 Last Admin: 09/30/23 22:17 Dose: 40 mg Documented By: [id number] Sucralfate (Sucralfate 1 Gm/10 Ml Udc) 1 gm PO QID MIKEY Stop: 10/30/23 21:10 Last Admin: 09/30/23 22:17 Dose: 1 gm Documented By: [id number] Discontinued Medications Diphenhydramine HCl (Diphenhydramine 50 Mg/Ml Vial) 25 mg IV NOW STA Stop: 09/30/23 17:50 Last Admin: 09/30/23 17:56 Dose: 25 mg Documented By: MARTIN Diphenhydramine HCl (Diphenhydramine 50 Mg/Ml Vial) 25 mg IV NOW STA Stop: 09/30/23 18:58 Last Admin: 09/30/23 19:01 Dose: 25 mg Documented By: ESTEBAN Fentanyl (Fentanyl 25 Mcg/Hr Tdsy) 25 mcg TD Q72H MIKEY Stop: 10/14/23 20:59 Last Admin: 09/30/23 22:28 Dose: Not Given Documented By: [id number] Tenecteplase 14 mg/ Syringe 2.8 mls @ 33.6 mls/min IV NOW ONE; Protocol Stop: 09/30/23 18:50 Last Admin: 09/30/23 18:59 Dose: 33.6 mls/min Documented By: ESTEBAN Co-signed By: SILVERIO Magnesium Sulfate/Dextrose (Magnesium Sulfate / D5w) 1 gm in 100 mls @ 100 mls/hr IV Q1H [facility] Stop: 09/30/23 20:57 Last Infusion: 09/30/23 21:18 Dose: Infused Documented By: [id number] Admin: 09/30/23 19:54 Dose: 100 mls/hr Documented By: Infusion: 09/30/23 19:54 Dose: Infused Documented By: Admin: 09/30/23 19:04 Dose: 100 mls/hr Documented By: ESTEBAN Sodium Chloride (Nss) 1,000 mls @ 100 mls/hr IV .Q10H [facility] Stop: 10/30/23 19:44 Last Infusion: 09/30/23 21:24 Dose: Infused Documented By: [id number] Admin: 09/30/23 19:54 Dose: 100 mls/hr Documented By: ESTEBAN Sodium Chloride (Nss) 250 mls @ 999 mls/hr IV .Q16M ONE Stop: 09/30/23 19:47 Last Infusion: 09/30/23 20:05 Dose: Infused Documented By: Admin: 09/30/23 19:45 Dose: 999 mls/hr Documented By: ESTEBAN Acetaminophen (Ofirmev) 1,000 mg in 100 mls @ 400 mls/hr IV NOW STA Stop: 09/30/23 20:53 Last Infusion: 09/30/23 21:50 Dose: Infused Documented By: [id number] Admin: 09/30/23 20:49 Dose: 400 mls/hr Documented By: ESTEBAN Ioversol (Optiray 320 125ml) 117 ml IV ONCE ONE Stop: 09/30/23 18:25 Last Admin: 09/30/23 18:24 Dose: 117 ml Documented By: AURORA Labetalol HCl (Labetalol Hcl Iv 5 Mg/Ml 20ml) Confirm Administered Dose 5 mg IV .STK-MED ONE Stop: 09/30/23 18:47 Last Admin: 09/30/23 19:54 Dose: Not Given Documented By: ESTEBAN Loratadine (Loratadine 10 Mg Tab) 10 mg PO NOW ONE Stop: 09/30/23 20:37 Last Admin: 09/30/23 20:49 Dose: 10 mg Documented By: ESTEBAN Methylprednisolone (Methylprednisolone 125 Mg/2 Ml Vial) 125 mg IV NOW STA Stop: 09/30/23 17:50 Last Admin: 09/30/23 17:59 Dose: 125 mg Documented By: MARTIN Miscellaneous (Stat Iv/Im) 1 each N/A NOW STA Stop: 09/30/23 18:39 Last Admin: 09/30/23 19:05 Dose: Not Given Documented By: ESTEBAN Miscellaneous (Fentanyl Patch Remove & Waste) 1 each N/A Q3D MIKEY Stop: 10/30/23 20:59 Last Admin: 09/30/23 22:29 Dose: Not Given Documented By: [id number] Sodium Chloride (Sodium Chloride 0.9% 10ml Flush) 20 ml IV NOW STA Stop: 09/30/23 18:39 Last Admin: 09/30/23 19:05 Dose: 20 ml Documented By: ESTEBAN Medical Decision Making Laboratory Data Attestation: I reviewed the patient's lab results. 09/30/23 12:29 09/30/23 12:29 Labs: Lab Results 09/30/23 09/30/23 09/30/23 Range/Units 12:29 16:45 18:07 WBC 6.96 (4.8-10.8) K/ul RBC 3.89 L (4.20-5.40) M/uL Hgb 12.0 (12.0-16.0) g/dl Hct 37.2 (37.0-47.0) % MCV 95.6 (80.0-100.0) fL MCH 30.8 (25.0-34.0) pg MCHC 32.3 (32.0-36.0) g/dL RDW Std Deviation 47.5 H (36.4-46.3) fL RDW Coeff of Kim 13.4 (11.5-14.5) % Plt Count 228 (130-400) K/uL MPV 10.0 (9.4-12.4) fL Immature Gran % (Auto) 0.4 % Neut % (Auto) 60.5 % Lymph % (Auto) 21.7 % Alcorn % (Auto) 9.8 % Eos % (Auto) 6.6 % Baso % (Auto) 1.0 % Neut # (Auto) 4.21 (1.40-6.50) K/uL Lymph # (Auto) 1.51 (1.20-3.40) K/uL Alcorn # (Auto) 0.68 H (0.11-0.59) K/uL Eos # (Auto) 0.46 (0.00-0.50) K/uL Baso # (Auto) 0.07 (0.00-0.20) K/uL Immature Gran # (Auto) 0.03 (0.01-0.20) K/uL PT 11.0 (9.0-12.0) Seconds INR 1.0 (0.9-1.1) APTT 24 (21-31) Seconds PTT Ratio 0.9 D-Dimer 4090 H* (0-500) ug/L FEU Sodium 140 (136-145) mmol/L Potassium 4.4 (3.5-5.1) mmol/L Chloride 108 H (98-107) mmol/L Carbon Dioxide 28 (21-32) mmol/L Anion Gap 4 (3-11) BUN 24 H (6-23) mg/dl Creatinine 0.85 (0.6-1.2) mg/dl Est Cr Clr Drug Dosing Not Reportable Est GFR ( Amer) 75.0 ml/min Est GFR (Non-Af Amer) 64.7 ml/min BUN/Creatinine Ratio 28.2 H (10-20) Glucose 111 H (70-99(Fasting)) mg/dl POC Glucose 70 (70-99) mg/dl Calcium 9.9 (8.6-10.3) mg/dl Magnesium (1.7-2.4) mg/dl Total Bilirubin 0.5 (0.2-1.0) mg/dl AST 25 (13-39) U/L ALT 19 (7-52) U/L Alkaline Phosphatase 54 (34-104) U/L Troponin I High Sens 7.9 8.2 (0-14) pg/ml Total Protein 6.7 (6.0-8.3) gm/dl Albumin 3.8 (3.4-5.0) gm/dl Globulin 2.9 (2.5-4.0) gm/dl Albumin/Globulin Ratio 1.3 (0.9-2) Blood Type Antibody Screen 09/30/23 09/30/23 09/30/23 Range/Units 18:30 18:40 19:51 WBC (4.8-10.8) K/ul RBC (4.20-5.40) M/uL Hgb (12.0-16.0) g/dl Hct (37.0-47.0) % MCV (80.0-100.0) fL MCH (25.0-34.0) pg MCHC (32.0-36.0) g/dL RDW Std Deviation (36.4-46.3) fL RDW Coeff of Kim (11.5-14.5) % Plt Count (130-400) K/uL MPV (9.4-12.4) fL Immature Gran % (Auto) % Neut % (Auto) % Lymph % (Auto) % Alcorn % (Auto) % Eos % (Auto) % Baso % (Auto) % Neut # (Auto) (1.40-6.50) K/uL Lymph # (Auto) (1.20-3.40) K/uL Alcorn # (Auto) (0.11-0.59) K/uL Eos # (Auto) (0.00-0.50) K/uL Baso # (Auto) (0.00-0.20) K/uL Immature Gran # (Auto) (0.01-0.20) K/uL PT (9.0-12.0) Seconds INR (0.9-1.1) APTT (21-31) Seconds PTT Ratio D-Dimer (0-500) ug/L FEU Sodium (136-145) mmol/L Potassium (3.5-5.1) mmol/L Chloride (98-107) mmol/L Carbon Dioxide (21-32) mmol/L Anion Gap (3-11) BUN (6-23) mg/dl Creatinine (0.6-1.2) mg/dl Est Cr Clr Drug Dosing Est GFR ( Amer) ml/min Est GFR (Non-Af Amer) ml/min BUN/Creatinine Ratio (10-20) Glucose (70-99(Fasting)) mg/dl POC Glucose 71 101 H (70-99) mg/dl Calcium (8.6-10.3) mg/dl Magnesium 1.7 (1.7-2.4) mg/dl Total Bilirubin (0.2-1.0) mg/dl AST (13-39) U/L ALT (7-52) U/L Alkaline Phosphatase (34-104) U/L Troponin I High Sens (0-14) pg/ml Total Protein (6.0-8.3) gm/dl Albumin (3.4-5.0) gm/dl Globulin (2.5-4.0) gm/dl Albumin/Globulin Ratio (0.9-2) Blood Type A Positive Antibody Screen NEGATIVE Imaging Data CT scan - head: Attestation: I personally reviewed and interpreted this imaging study as follows: My impression: CT head: No ICH CTA chest: No PE or dissection Radiologist's impression: Chest X-Ray 09/30/23 12:16 SINGLE VIEW CHEST CLINICAL HISTORY: Atypical chest pain. FINDINGS: A PA chest radiograph is compared to study dated 08/05/2023. Correlation is made with chest CT dated 10/22/2022. A 2-lead cardiac pacemaker is unchanged in position and partially obscures the left lower chest. The heart is enlarged. The pulmonary vasculature is noncongested. Chronic interstitial thickening since previous. There is bibasilar scarring/atelectasis. No airspace consolidation or large pleural effusion is identified. No pneumothorax is seen. The skeletal structures are osteopenic. There are chronic/healed left-sided rib fractures. A left shoulder arthroplasty is in near anatomic alignment. Advanced arthritic change is seen in the right shoulder. Degenerative change and scoliosis is seen in the spine. Fusion hardware is partially imaged in the lumbar region. Surgical clips project over the stomach. IMPRESSION: 1. Cardiomegaly and cardiac pacemaker without radiographic evidence of congestive failure. 2. No airspace consolidation or large pleural effusion is identified. ACT 112: Negative or not required by law. Electronically signed by: Alexi Avendano M.D. 09/30/2023 1:17 PM Chest CTA 09/30/23 17:49 CT ANGIOGRAM OF THE CHEST CLINICAL HISTORY: Atypical chest pain. COMPARISON STUDY: Chest x-ray dated 09/30/2023. Chest CT dated 10/22/2022. TECHNIQUE: Following the IV administration of 117 cc of Optiray 320, CT angiogram of the chest was performed from the upper abdomen to the thoracic inlet utilizing the pulmonary embolus protocol. Images are reviewed in the axial, sagittal, and coronal planes. 3-D MIPS images are created and assessed. IV contrast was administered without complication. A dose lowering technique was utilized adhering to the principles of ALARA. The examination is degraded by motion artifact, as well as by streak artifact from the arms which could not be elevated above the chest. CT DOSE: 1470.88 mGy.cm FINDINGS: Thyroid: Normal in size and heterogeneous in attenuation. Thoracic aorta: The thoracic aorta is normal in caliber and demonstrates standard 3-vessel arch anatomy. No dissection is seen. Pulmonary vasculature: The pulmonary trunk is normal in caliber. There are no filling defects identified in main, lobar, or segmental pulmonary branches to suggest pulmonary embolus. Heart: A pacemaker is seen in the left chest wall. The heart is enlarged and without pericardial effusion. Lungs and pleural spaces: Evaluation of the lung parenchyma is significantly degraded by motion artifact. No airspace consolidation or large pleural effusion is identified. Scarring/atelectasis is seen throughout both lungs, greatest at the lung bases. The trachea and central airways are clear. Mediastinum: There is no mediastinal lymphadenopathy. Conchita: Clear. Axillae: There is no axillary lymphadenopathy. Upper abdomen: There is a small to moderate hiatal hernia. Surgical clips are noted in the stomach. Cholecystectomy clips are seen in the right upper quadrant. A duodenal diverticulum is noted. Skeletal structures: The skeletal structures are osteopenic. Degenerative changes and kyphoscoliosis is noted in the spine. No lytic or blastic bony lesions are seen. Advanced arthritic changes seen in the right shoulder with surrounding bursal fluid. A left shoulder arthroplasty is in place. There is chronic posttraumatic deformity of the left clavicle as well as chronic/healed bilateral rib fractures. IMPRESSION: 1. Streak and motion degraded examination. 2. There is no evidence of pulmonary embolus in the main, lobar, or segmental pulmonary arteries. 3. Cardiomegaly and cardiac pacemaker. 4. There is no airspace consolidation or pleural effusion. 5. Additional findings as above. ACT 112: Negative or not required by law. Electronically signed by: Alexi Avendano M.D. 09/30/2023 6:[address] 09/30/23 18:08 CT SCAN OF THE BRAIN WITHOUT IV CONTRAST CLINICAL HISTORY: Strokelike symptoms. COMPARISON STUDY: CT of the brain dated 08/05/2023. TECHNIQUE: Unenhanced axial CT scan of the brain is performed from the vertex to the skull base. A dose lowering technique was utilized adhering to the principles of ALARA. The patient was scanned twice due to motion artifact. FINDINGS: Brain parenchyma: There is age-related involutional change noting moderate subcortical and periventricular microangiopathic disease. There is no hemorrhage, mass effect, or evidence of acute territorial ischemia by CT criteria. Yip-white matter differentiation is preserved. No extra-axial fluid collection is seen. Ventricles, sulci, cisterns: Prominent secondary to involutional change. Intracranial vasculature: There is atherosclerotic calcification of the cavernous carotid artery. Calvarium: Unremarkable. Sinuses and mastoids: The paranasal sinuses are clear. The mastoid air cells are well pneumatized. Orbits: The bony orbits are grossly intact. There are bilateral ocular lens implants. IMPRESSION: There is no hemorrhage, mass effect, or evidence of acute territorial ischemia by CT criteria. ACT 112: Negative or not required by law. Electronically signed by: Alexi Avendano M.D. 09/30/2023 6:24 PM Head CTA 09/30/23 18:08 CT ANGIOGRAM OF THE BRAIN; CT ANGIOGRAM OF THE NECK CLINICAL HISTORY: Strokelike symptoms. COMPARISON STUDY: Unenhanced CT of the brain performed concurrently on 09/30/2023. TECHNIQUE: Following the IV administration of 117 of Optiray 320, CT angiogram of the head and neck was performed from the aortic arch to the vertex. Images are reviewed in the axial, sagittal, and coronal planes. 3-D MIPS images are created and assessed. IV contrast was administered without complication. All measurements were calculated based on NASCET criteria. A dose lowering technique was utilized adhering to the principles of ALARA. FINDINGS: Brain parenchyma: There is age related involutional change noting moderate subcortical and periventricular microangiopathic disease. There is no evidence of hemorrhage, mass effect, or acute territorial ischemia noting angiographic phase technique. There is no evidence of enhancing mass lesion on the angiogram phase images. The ventricles, sulci, and cisterns are prominent secondary to involutional change. Yip-white matter differentiation is preserved. No extra- axial fluid collection is seen. Thoracic aorta: Visualized portions of the thoracic aorta are normal in caliber. The aortic arch demonstrates standard 3-vessel anatomy. Right carotid arterial system: The right common carotid artery is widely patent, as are the right internal and external carotid arteries. Calcified plaque is noted in the carotid bulb. Left carotid arterial system: The left common carotid artery is widely patent, as are the left internal and external carotid arteries. Calcified plaque is noted in the carotid bulb. Vertebral arteries: The vertebral arteries are widely patent bilaterally and codominant. Subclavian arteries: Widely patent bilaterally. Intracranial vasculature: There is mild atherosclerotic calcification of the cavernous carotid arteries. The internal carotid arteries are patent at the skull base, as are the anterior and middle cerebral arteries bilaterally. The vertebrobasilar system and posterior cerebral arteries are widely patent. The vertebral arteries are codominant. There is no aneurysm, high-grade stenosis, or focal vessel cut off seen throughout the intracranial circulation. Jugular veins: Patent bilaterally. Dural sinuses: Patent. Lung apices: Partially visualized upper lobe lung parenchyma appears clear. Soft tissues: The visualized pharyngeal soft tissues are normal in appearance noting angiographic phase technique. The oropharyngeal airway appears widely patent. Calcified sialoliths are noted in the left parotid gland as well as the submandibular glands. The thyroid gland is normal in size and heterogeneous in attenuation. No cervical lymphadenopathy is seen. Skeletal structures: The skeletal structures are osteopenic. The calvarium appears intact. The cervical spine is maintained noting multilevel spondylosis. Advanced arthritic change is seen in the right shoulder. A left shoulder arthroplasty is in place. There is chronic posttraumatic deformity of the left clavicle, as well as chronic/healed left-sided rib fractures. Orbits: The bony orbits are intact. Orbital contents are normal as visualized noting bilateral ocular lens implants. Sinuses and mastoids: The paranasal sinuses are clear. The mastoid air cells are well pneumatized. IMPRESSION: 1. There is no evidence of hemorrhage, mass effect, or acute territorial ischemia noting angiographic phase technique. 2. Unremarkable CT angiogram of the brain. 3. Unremarkable CT angiogram of the neck. ACT 112: Negative or not required by law. Electronically signed by: Alexi Avendano M.D. 09/30/2023 6:35 PM Neck CTA 09/30/23 18:08 CT ANGIOGRAM OF THE BRAIN; CT ANGIOGRAM OF THE NECK CLINICAL HISTORY: Strokelike symptoms. COMPARISON STUDY: Unenhanced CT of the brain performed concurrently on 09/30/2023. TECHNIQUE: Following the IV administration of 117 of Optiray 320, CT angiogram of the head and neck was performed from the aortic arch to the vertex. Images are reviewed in the axial, sagittal, and coronal planes. 3-D MIPS images are created and assessed. IV contrast was administered without complication. All measurements were calculated based on NASCET criteria. A dose lowering technique was utilized adhering to the principles of ALARA. FINDINGS: Brain parenchyma: There is age related involutional change noting moderate subcortical and periventricular microangiopathic disease. There is no evidence of hemorrhage, mass effect, or acute territorial ischemia noting angiographic phase technique. There is no evidence of enhancing mass lesion on the angiogram phase images. The ventricles, sulci, and cisterns are prominent secondary to involutional change. Yip-white matter differentiation is preserved. No extra- axial fluid collection is seen. Thoracic aorta: Visualized portions of the thoracic aorta are normal in caliber. The aortic arch demonstrates standard 3-vessel anatomy. Right carotid arterial system: The right common carotid artery is widely patent, as are the right internal and external carotid arteries. Calcified plaque is noted in the carotid bulb. Left carotid arterial system: The left common carotid artery is widely patent, as are the left internal and external carotid arteries. Calcified plaque is noted in the carotid bulb. Vertebral arteries: The vertebral arteries are widely patent bilaterally and codominant. Subclavian arteries: Widely patent bilaterally. Intracranial vasculature: There is mild atherosclerotic calcification of the cavernous carotid arteries. The internal carotid arteries are patent at the skull base, as are the anterior and middle cerebral arteries bilaterally. The vertebrobasilar system and posterior cerebral arteries are widely patent. The vertebral arteries are codominant. There is no aneurysm, high-grade stenosis, or focal vessel cut off seen throughout the intracranial circulation. Jugular veins: Patent bilaterally. Dural sinuses: Patent. Lung apices: Partially visualized upper lobe lung parenchyma appears clear. Soft tissues: The visualized pharyngeal soft tissues are normal in appearance noting angiographic phase technique. The oropharyngeal airway appears widely patent. Calcified sialoliths are noted in the left parotid gland as well as the submandibular glands. The thyroid gland is normal in size and heterogeneous in attenuation. No cervical lymphadenopathy is seen. Skeletal structures: The skeletal structures are osteopenic. The calvarium appears intact. The cervical spine is maintained noting multilevel spondylosis. Advanced arthritic change is seen in the right shoulder. A left shoulder arthroplasty is in place. There is chronic posttraumatic deformity of the left clavicle, as well as chronic/healed left-sided rib fractures. Orbits: The bony orbits are intact. Orbital contents are normal as visualized noting bilateral ocular lens implants. Sinuses and mastoids: The paranasal sinuses are clear. The mastoid air cells are well pneumatized. IMPRESSION: 1. There is no evidence of hemorrhage, mass effect, or acute territorial ischemia noting angiographic phase technique. 2. Unremarkable CT angiogram of the brain. 3. Unremarkable CT angiogram of the neck. ACT 112: Negative or not required by law. Electronically signed by: Alexi Avendano M.D. 09/30/2023 6:35 PM ECG Data Attestation: I personally reviewed and interpreted this ECG as follows: Rate (beats per minute): 66 Rhythm: normal sinus Findings: no ST depression, no ST elevation or no prolonged QT MDM Narrative 1602: The patient was evaluated in room A2. A complete history and physical exam was performed Cardiac monitoring: An order was placed for continuous cardiac monitoring. The monitor shows a rate of 90 with sinus rhythm interpreted by me Patient was seen during a time of extreme volume and extreme acuity in the emergency department. Nursing triage protocols were initiated and labs were drawn by protocol in the triage area. Patient is concerned about PE. Will order D-dimer as well as repeat troponin. Patient has a listed contrast to iodinated contrast but states that she has had CT scans with contrast in the past and has tolerated prep with steroids and Benadryl the night before well to obtain CT images with contrast. 1750: D-dimer elevated. Solu-Medrol and Benadryl ordered for the patient to obtain CTA of the chest. 180: Called to bedside by nursing. Nursing reports that the patient is more confused. I immediately went to go evaluate the patient and the patient was having difficulty speaking difficulty moving her legs. This is very different from when she initially presented and she gave a full history. Accu-Chek of 70. Code stroke alert called. 182: CT of the head viewed by me shows no ICH. Awaiting to speak with [facility]. Applied Psychology Professor stated that [facility] doctor is involved in another case as well as the backup [facility] doctor. 1900: Dr. Mina evaluated the patient and spoke with the daughter at bedside. Patient's speech did improve somewhat from her initial symptom onset at 1809 however the patient still slurring her words still unable to write still not oriented. Dr. Warner Leblanc family patient and I agree that the patient would be a good TNK candidate. TNKase administered at 1900. Patient was developing hives and itching after the contrast. Dr. Leblanc states that the patient can get additional 25 mg of Benadryl. He also recommends magnesium 2 g to be ordered for the patient. Patient will be admitted to the ICU. Impression & Plan Acute CVA (cerebrovascular accident), Chest pain Critical Care Time Critical Care Time: Yes Total Critical Care Time: 51 I have personally spent greater than 51 minutes of critical care time in the direct management of this patient. This includes bedside care, interpretation of diagnostic studies, and testing, discussion with consultants, patient, and family members, and other required patient management activities. This 51 minutes is in excess of all separately billable procedures. Discharge Plan Visit Data Chief Complaint: Chest Pain Stated Complaint: CHEST PAIN ED Provider: Andre Zaman Discharge Problem: Acute CVA (cerebrovascular accident), Chest pain Patient Disposition: Admitted As Inpatient Discharge Instructions Interventions: ED Discharge Assessment Last Done: 09/30/23 21:12 Discharge Problem: Chest pain Qualifiers: Chest pain type: unspecified Qualified Code(s): R07.9 - Chest pain, unspecified
[2023-09-30 17:48] LABS: D Dimer 4090 ug/L FEU (0-500)
[2023-09-30] MEDS: diphenhydrAMINE 50 MG/ML VIAL IV STA ×2 (17:56→19:01)
[2023-09-30] MEDS: methylPREDNISolone 125 MG/2 ML VIAL IV STA (17:59)
[2023-09-30] MEDS: OPTIRAY 320 125ml IV ONE (18:24)
--- NOTE | 2023-09-30 18:27 | CT Scan Report ---
CT SCAN OF THE BRAIN WITHOUT IV CONTRAST CLINICAL HISTORY: Strokelike symptoms. COMPARISON STUDY: CT of the brain dated 08/05/2023. TECHNIQUE: Unenhanced axial CT scan of the brain is performed from the vertex to the skull base. A do se lowering technique was utilized adhering to the principles of ALARA. The patient was scanned twice due to motion artifact. FINDINGS: Brain parenchyma: There is age-related involutional change noting moderate subcortical and periventri cular microangiopathic disease. There is no hemorrhage, mass effect, or evidence of acute territorial ischemia by CT criteria. Yip-white matter differentiation is preserved. No extra-axial fluid collec tion is seen. Ventricles, sulci, cisterns: Prominent secondary to involutional change. Intracranial vasculature: There is atherosclerotic calcification of the cavernous carotid artery. Calvarium: Unremarkable. Sinuses and mastoids: The paranasal sinuses are clear. The mastoid air cells are well pneumatized. Orbits: The bony orbits are grossly intact. There are bilateral ocular lens implants. IMPRESSION: There is no hemorrhage, mass effect, or evidence of acute territorial ischemia by CT donaldo bray. ACT 112: Negative or not required by law. Electronically signed by: Alexi Avendano M.D. 09/30/2023 6:24 PM
--- NOTE | 2023-09-30 18:38 | CT Scan Report ---
CT ANGIOGRAM OF THE BRAIN; CT ANGIOGRAM OF THE NECK CLINICAL HISTORY: Strokelike symptoms. COMPARISON STUDY: Unenhanced CT of the brain performed concurrently on 09/30/2023. TECHNIQUE: Following the IV administration of 117 of Optiray 320, CT angiogram of the head and neck w as performed from the aortic arch to the vertex. Images are reviewed in the axial, sagittal, and apolinar nal planes. 3-D MIPS images are created and assessed. IV contrast was administered without complicati on. All measurements were calculated based on NASCET criteria. A dose lowering technique was utilize d adhering to the principles of ALARA. FINDINGS: Brain parenchyma: There is age related involutional change noting moderate subcortical and periventri cular microangiopathic disease. There is no evidence of hemorrhage, mass effect, or acute territorial ischemia noting angiographic phase technique. There is no evidence of enhancing mass lesion on the a ngiogram phase images. The ventricles, sulci, and cisterns are prominent secondary to involutional ch cassandra. Yip-white matter differentiation is preserved. No extra-axial fluid collection is seen. Thoracic aorta: Visualized portions of the thoracic aorta are normal in caliber. The aortic arch demo nstrates standard 3-vessel anatomy. Right carotid arterial system: The right common carotid artery is widely patent, as are the right int ernal and external carotid arteries. Calcified plaque is noted in the carotid bulb. Left carotid arterial system: The left common carotid artery is widely patent, as are the left wireless internet installer al and external carotid arteries. Calcified plaque is noted in the carotid bulb. Vertebral arteries: The vertebral arteries are widely patent bilaterally and codominant. Subclavian arteries: Widely patent bilaterally. Intracranial vasculature: There is mild atherosclerotic calcification of the cavernous carotid arteri es. The internal carotid arteries are patent at the skull base, as are the anterior and middle cerebr al arteries bilaterally. The vertebrobasilar system and posterior cerebral arteries are widely patent . The vertebral arteries are codominant. There is no aneurysm, high-grade stenosis, or focal vessel c ut off seen throughout the intracranial circulation. Jugular veins: Patent bilaterally. Dural sinuses: Patent. Lung apices: Partially visualized upper lobe lung parenchyma appears clear. Soft tissues: The visualized pharyngeal soft tissues are normal in appearance noting angiographic pha se technique. The oropharyngeal airway appears widely patent. Calcified sialoliths are noted in the l eft parotid gland as well as the submandibular glands. The thyroid gland is normal in size and hetero geneous in attenuation. No cervical lymphadenopathy is seen. Skeletal structures: The skeletal structures are osteopenic. The calvarium appears intact. The cervic al spine is maintained noting multilevel spondylosis. Advanced arthritic change is seen in the right shoulder. A left shoulder arthroplasty is in place. There is chronic posttraumatic deformity of the l eft clavicle, as well as chronic/healed left-sided rib fractures. Orbits: The bony orbits are intact. Orbital contents are normal as visualized noting bilateral ocular lens implants. Sinuses and mastoids: The paranasal sinuses are clear. The mastoid air cells are well pneumatized. IMPRESSION: 1. There is no evidence of hemorrhage, mass effect, or acute territorial ischemia noting angiographic phase technique. 2. Unremarkable CT angiogram of the brain. 3. Unremarkable CT angiogram of the neck. ACT 112: Negative or not required by law. Electronically signed by: Alexi Avendano M.D. 09/30/2023 6:35 PM
[2023-09-30] MEDS ORDERED: No Aspirin within 24hrs of THROMBOLYTIC-Stroke PO SCH (18:45)
--- NOTE | 2023-09-30 18:52 | CT Scan Report ---
CT ANGIOGRAM OF THE CHEST CLINICAL HISTORY: Atypical chest pain. COMPARISON STUDY: Chest x-ray dated 09/30/2023. Chest CT dated 10/22/2022. TECHNIQUE: Following the IV administration of 117 cc of Optiray 320, CT angiogram of the chest was pe rformed from the upper abdomen to the thoracic inlet utilizing the pulmonary embolus protocol. Images are reviewed in the axial, sagittal, and coronal planes. 3-D MIPS images are created and assessed. I V contrast was administered without complication. A dose lowering technique was utilized adhering to the principles of ALARA. The examination is degraded by motion artifact, as well as by streak artifa ct from the arms which could not be elevated above the chest. CT DOSE: 1470.88 mGy.cm FINDINGS: Thyroid: Normal in size and heterogeneous in attenuation. Thoracic aorta: The thoracic aorta is normal in caliber and demonstrates standard 3-vessel arch anato my. No dissection is seen. Pulmonary vasculature: The pulmonary trunk is normal in caliber. There are no filling defects identif ied in main, lobar, or segmental pulmonary branches to suggest pulmonary embolus. Heart: A pacemaker is seen in the left chest wall. The heart is enlarged and without pericardial effu td. Lungs and pleural spaces: Evaluation of the lung parenchyma is significantly degraded by motion artif act. No airspace consolidation or large pleural effusion is identified. Scarring/atelectasis is seen throughout both lungs, greatest at the lung bases. The trachea and central airways are clear. Mediastinum: There is no mediastinal lymphadenopathy. Conchita: Clear. Axillae: There is no axillary lymphadenopathy. Upper abdomen: There is a small to moderate hiatal hernia. Surgical clips are noted in the stomach. C holecystectomy clips are seen in the right upper quadrant. A duodenal diverticulum is noted. Skeletal structures: The skeletal structures are osteopenic. Degenerative changes and kyphoscoliosis is noted in the spine. No lytic or blastic bony lesions are seen. Advanced arthritic changes seen in the right shoulder with surrounding bursal fluid. A left shoulder arthroplasty is in place. There is chronic posttraumatic deformity of the left clavicle as well as chronic/healed bilateral rib fracture s. IMPRESSION: 1. Streak and motion degraded examination. 2. There is no evidence of pulmonary embolus in the main, lobar, or segmental pulmonary arteries. 3. Cardiomegaly and cardiac pacemaker. 4. There is no airspace consolidation or pleural effusion. 5. Additional findings as above. ACT 112: Negative or not required by law. Electronically signed by: Alexi Avendano M.D. 09/30/2023 6:50 PM
[2023-09-30] MEDS: TENECTEPLASE 14 MG in SYRINGE 0 ML IV ONE (18:59)
[2023-09-30] MEDS: MAGNESIUM SULFATE / D5W 1 GM/100 ML BAG IV SCH (19:04)
[2023-09-30] MEDS: SODIUM CHLORIDE 0.9% 10ML FLUSH IV STA (19:05)
[2023-09-30] MEDS: STAT IV/IM STA (19:05)
[2023-09-30] MEDS: SODIUM CHLORIDE 0.9% 250 ML IV ONE (19:45)
[2023-09-30] MEDS: LABETALOL HCL IV 5 MG/ML 20ML IV ONE (19:54)
[2023-09-30] MEDS: SODIUM CHLORIDE 0.9% 1,000 ML IV SCH (19:54)
--- NOTE | 2023-09-30 20:03 | History & Physical Report ---
Date of Service September 30, 2023 Assessment & Plan (1) Aphasia: Plan: Possible CVA Status post TNKase administration Some improvement after formulating administration as per family. Encephalopathy secondary to above Fentanyl patch and neuropsychotropic medications contributory Rule out UTI chronic diastolic heart failure (EF 55 to 60%, TTE 2022), patient euvolemic to dry SSS status post PPM/recurrent PE on Eliquis valvular heart disease (mild AR, trace TR) hypertension, elevated secondary to illness chronic hypoxemic respiratory failure secondary to COPD on home O2 sleep apnea as per records GERD/hiatal hernia status post surgery hypothyroidism, euthyroid as of last months TSH hx migraine, patient gets outpatient Botox injections hx rheumatoid arthritis, fibromyalgia hx somatization disorder/anxiety/mood disorder, patient not suicidal currently as per family ICU monitoring post thrombolytic administration Neurochecks Aspirin for secondary stroke prevention, resume Eliquis if no bleed on follow-up CT head Permissive hypertension for now TTE, MRI brain for additional stroke workup Neurology consult Re: Aphasia status post in case administration Hold neuropsychotropic medications until patient mentation back to baseline Check UA DVT prophylaxis. SCDs while Eliquis on hold post TNKase Full code Patient daughter requesting updates providers. Rosalina Jamison, contact #[phone]. Text document was generated using [employer] voice recognition software. It may contain grammatical or spelling errors. Kindly contact undersigned for clarification of any documentation item in question. History of Present Illness Chief Complaint: Chest pain Primary Care Provider: Ernestina Swanson, History obtained from patient, family, and records. Limited history from patient secondary to disoriented state Medical history significant for chronic diastolic heart failure (EF 55 to 60%, TTE 2022), SSS status post PPM/recurrent PE on Eliquis, valvular heart disease (mild AR, trace TR), hypertension, chronic hypoxemic respiratory failure secondary to COPD on home O2, sleep apnea as per records, GERD status post surgery, hypothyroidism, skin cancer as per records, migraine, chronic pain on fentanyl patch, rheumatoid arthritis, fibromyalgia, somatization disorder, anxiety/mood disorder. Last confinement October 2022 for generalized weakness and acute renal failure. Recent ER visit last month for depression and suicidality. Patient discharged to psych unit at [facility] in [place]. Patient complained to family of left-sided chest pain and shortness of breath today. No unusual cough symptoms. Compliant with home medications. Patient brought to the ER for evaluation. Around 6 PM while waiting at the ER, patient seemed more confused and had trouble getting words out. Leg weakness as per ER provider. BSG noted to be 70 Stroke alert called. TNKase administered following [facility] Neurology recommendations. 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 Allergies Allergy/AdvReac Type Severity Reaction Status Date / Time bee venom protein (honey bee) Allergy Severe "SWELLED Verified 08/05/23 18:47 ALL UP" Iodinated Contrast Media Allergy Intermediate PASSED Verified 08/05/23 18:47 OUT-BODY FELT COLD ALL OVER venlafaxine Allergy Unknown Unknown Verified 08/05/23 18:47 atorvastatin AdvReac Intermediate PAIN IN Verified 08/05/23 18:47 JOINTS gabapentin AdvReac Intermediate HORRIBLE Verified 08/05/23 18:47 HEADACHES rosuvastatin [From Crestor] AdvReac Intermediate PAIN IN Verified 08/05/23 18:47 JOINTS shellfish derived AdvReac Intermediate Headache Verified 08/05/23 18:47 Home Medications Medication Instructions Recorded Confirmed Type calcium 650 mg-vitamin D3 12.5 2 tab PO DAILY 03/05/19 09/30/23 History mcg-vitamin K 40 mcg chewable tablet (Viactiv) levothyroxine 75 mcg tablet 75 mcg PO Q2D 11/02/20 09/30/23 History hydrocodone 10 mg-acetaminophen 1 tab PO Q4 PRN Pain 01/30/21 09/30/23 History 325 mg tablet levothyroxine 50 mcg tablet 50 mcg PO Q2D 01/30/21 09/30/23 History lorazepam 0.5 mg tablet 0.5 mg PO BID Anxiety 01/30/21 09/30/23 History pantoprazole 40 mg tablet,delayed 40 mg PO BID 01/30/21 09/30/23 History release dicyclomine 10 mg capsule 10 mg PO QID Abdominal Pain 04/11/22 09/30/23 History adalimumab 40 mg/0.8 mL 40 mg subcut WK 04/12/22 09/30/23 History subcutaneous syringe kit (Humira) mv-mn-folic 200 mcg-vit K 15 1 cap PO BID 10/21/22 09/30/23 History mcg-lutein 5 mg-zeaxanthin 1 mg capsule (PreserVision AREDS 2 Plus Multivit) polyethylene glycol 3350 17 gram 17 g PO UD PRN Constipation 10/21/22 09/30/23 History oral powder packet (Miralax) metoprolol succinate 25 mg 25 mg PO QAM 11/18/22 09/30/23 History tablet,extended release 24 hr fentanyl 25 mcg/hr transdermal 1 patch transdermal Q72H 05/14/23 09/30/23 History patch sucralfate 100 mg/mL oral 5 ml PO DAILY PRN Abdominal Pain 05/14/23 09/30/23 History suspension biotin 10,000 mcg capsule 10,000 mcg PO QPM 06/11/23 09/30/23 History multivitamin-ferrous 1 tab PO QAM 06/11/23 09/30/23 History fumarate-folic acid 18 mg-400 mcg tablet (Centrum) duloxetine 60 mg capsule,delayed 60 mg PO DAILY 09/30/23 09/30/23 History release famotidine 20 mg tablet 20 mg PO BID 09/30/23 09/30/23 History furosemide 20 mg tablet 20 mg PO DAILY 09/30/23 09/30/23 History lisinopril 10 mg tablet 10 mg PO QAM 09/30/23 09/30/23 History sucralfate 100 mg/mL oral 1 g PO QID 09/30/23 09/30/23 History suspension Past Med/Surg History Medical History STEPHANIE (generalized anxiety disorder) Major depressive disorder, recurrent, severe without psychotic features Chronic pain syndrome sees specialist in [place] History of pelvic fracture 04/2023, due to a fall Anxiety Depression Hx of fall ~02/2023, flown to [facility] in [facility], fx ribs 7-10 and punctured her left lung-had chest tube placed>in hospital for 3-4 days>rib fx have all healed ~04/2023, found pelvic fracture during hip x-ray ~05/30/23>still has bruising on different areas of her body, "cracked the ball joint bone in my right shoulder" and laceration of her arm has had multiple falls over the years Lumbar spondylosis On home oxygen therapy 2 LPM in day 4 LPM at >prn Spinal cord stimulator status removed History of COVID-19 10/28/22 > hospitalized at [facility] > loss of taste and smell, cough, fatigue>still fatigued Basal cell carcinoma REMOVED HTN (hypertension) Tachy-sheryl syndrome Urge incontinence of urine Nutcracker esophagus Pancreatic insufficiency Shortness of breath with activity Paroxysmal atrial fibrillation pacer > follows with Dr. Rodriguez in [place] > no thinners can't tolerate per pt Pacemaker Medtronic > placed November 2020, [facility] > placed for Afib; f/u dr. 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 GETS HEADACHES FROM and falls Rheumatoid arthritis Osteoarthritis Hypothyroidism Surgical History History of eye surgery LASER History of bilateral cataract extraction History of colonoscopy History of total left knee replacement History of rectocele REPAIR WITH MESH AND MESH SINCE REMOVED History of laparoscopic cholecystectomy History of right knee surgery bursa sac removed History of lumbar fusion History of endoscopy DILATION OF ESOPHAGUS History of repair of hiatal hernia History of cardiac cath 2018..CHEST PAIN...[place]TO[place] - NO FINDINGS...HIATAL HERNIA DX S/P repair of paraesophageal hernia History of partial colectomy S/P lumbar fusion History of repair of right rotator cuff History of bladder suspension procedure History of appendectomy History of partial hysterectomy Family History Sister Colorectal cancer Hypertension Mother Stroke Hypertension Other No pertinent family history Social History Smoking Status: Never smoker Second Hand Exposure: No; Do You Dip or Chew Tobacco: No; Hx Alcohol Use: No Hx Substance Use: No Preferred Language: Macedonian Communication Ability: Effective Visual Impairment: No Limitations Hearing Ability: Normal Title One Teacher Required: No Beliefs That Will Affect Care: None marital status: Current Living Situation: Family Current Living Situation Comment: current occupational status: retired Feels Safe at Home: Yes Safety Concerns: Feels Safe At This Time Gender Identity: Female Assistive Devices: Cane, Denture - Upper, Denture - Lower, Glasses and Walker Review of Systems Review of Systems: Could not be reliably obtained secondary to disoriented state Physical Exam Physical Exam: GENERAL: Disoriented, restless, slightly uncomfortable, no respiratory distress SKIN: Normal color, warm HEENT: Bespectacled, [place] palpebral conjunctivae, no ptosis, dry buccal mucosa NECK : Supple, no tenderness CHEST : Decreased breath sounds, no tenderness HEART : RRR, no obvious murmurs ABDOMEN: no distention, nontender EXTREMITIES : No LE swelling/tenderness, no other conspicuous deformities noted NEUROLOGIC : Disoriented, no facial asymmetry, restless, no other gross focality Results & Data Results & Data Vital Signs (Past 12 Hours) Vital Signs Temp Pulse Pulse Resp BP BP Pulse Ox 09/30/23 19:45 96 H 14 152/82 H 96 09/30/23 19:44 96 H 09/30/23 19:30 25 H 160/82 H 93 09/30/23 19:30 92 H 19 160/90 H 94 09/30/23 19:12 98 H 24 155/81 H 93 09/30/23 19:11 93 09/30/23 18:58 99 H 24 144/88 H 93 09/30/23 16:56 92 H 19 110/46 L 92 09/30/23 16:00 74 18 122/48 L 98 09/30/23 15:53 71 09/30/23 12:13 36.3 C L 81 20 113/67 96 O2 Del Method 09/30/23 19:45 Room Air 09/30/23 19:44 09/30/23 19:30 Room Air 09/30/23 19:30 Room Air 09/30/23 19:12 Room Air 09/30/23 19:11 Room Air 09/30/23 18:58 Room Air 09/30/23 16:56 Room Air 09/30/23 16:00 Room Air 09/30/23 15:53 09/30/23 12:13 Room Air Laboratory Results Laboratory Results WBC 6.96 K/ul (4.8-10.8) 09/30/23 12: RBC 3.89 M/uL (4.20-5.40) L 09/30/23 12: Hgb 12.0 g/dl (12.0-16.0) 09/30/23 12: Hct 37.2 % (37.0-47.0) 09/30/23 12: MCV 95.6 fL (80.0-100.0) 09/30/23 12: MCH 30.8 pg (25.0-34.0) 09/30/23 12: MCHC 32.3 g/dL (32.0-36.0) 09/30/23 12: RDW Std Deviation 47.5 fL (36.4-46.3) H 09/30/23 12: RDW Coeff of Kim 13.4 % (11.5-14.5) 09/30/23 12: Plt Count 228 K/uL (130-400) 09/30/23 12: MPV 10.0 fL (9.4-12.4) 09/30/23 12: Immature Gran % (Auto) 0.4 % 09/30/23 12: Neut % (Auto) 60.5 % 09/30/23 12: Lymph % (Auto) 21.7 % 09/30/23 12: [place] % (Auto) 9.8 % 09/30/23 12: Eos % (Auto) 6.6 % 09/30/23 12: Baso % (Auto) 1.0 % 09/30/23 12: Neut # (Auto) 4.21 K/uL (1.40-6.50) 09/30/23 12: Lymph # (Auto) 1.51 K/uL (1.20-3.40) 09/30/23 12: [place] # (Auto) 0.68 K/uL (0.11-0.59) H 09/30/23 12: Eos # (Auto) 0.46 K/uL (0.00-0.50) 09/30/23 12: Baso # (Auto) 0.07 K/uL (0.00-0.20) 09/30/23 12: Immature Gran # (Auto) 0.03 K/uL (0.01-0.20) 09/30/23 12:29 PT 11.0 Seconds (9.0-12.0) 09/30/23 12:29 INR 1.0 (0.9-1.1) 09/30/23 12:29 APTT 24 Seconds (21-31) 09/30/23 12:29 PTT Ratio 0.9 09/30/23 12:29 D-Dimer 4090 ug/L FEU (0-500) H* 09/30/23 16:45 Sodium 140 mmol/L (136-145) 09/30/23 12:29 Potassium 4.4 mmol/L (3.5-5.1) 09/30/23 12:29 Chloride 108 mmol/L (98-107) H 09/30/23 12:29 Carbon Dioxide 28 mmol/L (21-32) 09/30/23 12:29 Anion Gap 4 (3-11) 09/30/23 12:29 BUN 24 mg/dl (6-23) H 09/30/23 12:29 Creatinine 0.85 mg/dl (0.6-1.2) 09/30/23 12:29 Est Cr Clr Drug Dosing Not Reportable 09/30/23 12:29 Est GFR ( Amer) 75.0 ml/min 09/30/23 12:29 Est GFR (Non-Af Amer) 64.7 ml/min 09/30/23 12:29 BUN/Creatinine Ratio 28.2 (10-20) H 09/30/23 12:29 Glucose 111 mg/dl (70-99(Fasting)) H 09/30/23 12:29 POC Glucose 71 mg/dl (70-99) 09/30/23 18:40 Calcium 9.9 mg/dl (8.6-10.3) 09/30/23 12:29 Total Bilirubin 0.5 mg/dl (0.2-1.0) 09/30/23 12:29 AST 25 U/L (13-39) 09/30/23 12:29 ALT 19 U/L (7-52) 09/30/23 12:29 Alkaline Phosphatase 54 U/L (34-104) 09/30/23 12:29 Troponin I High Sens 8.2 pg/ml (0-14) 09/30/23 16:45 Total Protein 6.7 gm/dl (6.0-8.3) 09/30/23 12:29 Albumin 3.8 gm/dl (3.4-5.0) 09/30/23 12:29 Globulin 2.9 gm/dl (2.5-4.0) 09/30/23 12:29 Albumin/Globulin Ratio 1.3 (0.9-2) 09/30/23 12:29 Blood Type A Positive 09/30/23 18:30 Antibody Screen NEGATIVE 09/30/23 18:30 Impressions Chest X-Ray 09/30/23 12:16 SINGLE VIEW CHEST CLINICAL HISTORY: Atypical chest pain. FINDINGS: A PA chest radiograph is compared to study dated 08/05/2023. Correlation is made with chest CT dated 10/22/2022. A 2-lead cardiac pacemaker is unchanged in position and partially obscures the left lower chest. The heart is enlarged. The pulmonary vasculature is noncongested. Chronic interstitial thickening since previous. There is bibasilar scarring/atelectasis. No airspace consolidation or large pleural effusion is identified. No pneumothorax is seen. The skeletal structures are osteopenic. There are chronic/healed left-sided rib fractures. A left shoulder arthroplasty is in near anatomic alignment. Advanced arthritic change is seen in the right shoulder. Degenerative change and scoliosis is seen in the spine. Fusion hardware is partially imaged in the lumbar region. Surgical clips project over the stomach. IMPRESSION: 1. Cardiomegaly and cardiac pacemaker without radiographic evidence of congestive failure. 2. No airspace consolidation or large pleural effusion is identified. ACT 112: Negative or not required by law. Electronically signed by: Alexi Avendano M.D. 09/30/2023 1:17 PM Chest CTA 09/30/23 17:49 CT ANGIOGRAM OF THE CHEST CLINICAL HISTORY: Atypical chest pain. COMPARISON STUDY: Chest x-ray dated 09/30/2023. Chest CT dated 10/22/2022. TECHNIQUE: Following the IV administration of 117 cc of Optiray 320, CT angiogram of the chest was performed from the upper abdomen to the thoracic inlet utilizing the pulmonary embolus protocol. Images are reviewed in the axial, sagittal, and coronal planes. 3-D MIPS images are created and assessed. IV contrast was administered without complication. A dose lowering technique was utilized adhering to the principles of ALARA. The examination is degraded by motion artifact, as well as by streak artifact from the arms which could not be elevated above the chest. CT DOSE: 1470.88 mGy.cm FINDINGS: Thyroid: Normal in size and heterogeneous in attenuation. Thoracic aorta: The thoracic aorta is normal in caliber and demonstrates standard 3-vessel arch anatomy. No dissection is seen. Pulmonary vasculature: The pulmonary trunk is normal in caliber. There are no filling defects identified in main, lobar, or segmental pulmonary branches to suggest pulmonary embolus. Heart: A pacemaker is seen in the left chest wall. The heart is enlarged and without pericardial effusion. Lungs and pleural spaces: Evaluation of the lung parenchyma is significantly degraded by motion artifact. No airspace consolidation or large pleural effusion is identified. Scarring/atelectasis is seen throughout both lungs, greatest at the lung bases. The trachea and central airways are clear. Mediastinum: There is no mediastinal lymphadenopathy. [place]: Clear. Axillae: There is no axillary lymphadenopathy. Upper abdomen: There is a small to moderate hiatal hernia. Surgical clips are noted in the stomach. Cholecystectomy clips are seen in the right upper quadrant. A duodenal diverticulum is noted. Skeletal structures: The skeletal structures are osteopenic. Degenerative changes and kyphoscoliosis is noted in the spine. No lytic or blastic bony lesions are seen. Advanced arthritic changes seen in the right shoulder with surrounding bursal fluid. A left shoulder arthroplasty is in place. There is chronic posttraumatic deformity of the left clavicle as well as chronic/healed bilateral rib fractures. IMPRESSION: 1. Streak and motion degraded examination. 2. There is no evidence of pulmonary embolus in the main, lobar, or segmental pulmonary arteries. 3. Cardiomegaly and cardiac pacemaker. 4. There is no airspace consolidation or pleural effusion. 5. Additional findings as above. ACT 112: Negative or not required by law. Electronically signed by: Alexi Avendano M.D. 09/30/2023 6:[address] 09/30/23 18:08 CT SCAN OF THE BRAIN WITHOUT IV CONTRAST CLINICAL HISTORY: Strokelike symptoms. COMPARISON STUDY: CT of the brain dated 08/05/2023. TECHNIQUE: Unenhanced axial CT scan of the brain is performed from the vertex to the skull base. A dose lowering technique was utilized adhering to the principles of ALARA. The patient was scanned twice due to motion artifact. FINDINGS: Brain parenchyma: There is age-related involutional change noting moderate subcortical and periventricular microangiopathic disease. There is no hemorrhage, mass effect, or evidence of acute territorial ischemia by CT criteria. Yip-white matter differentiation is preserved. No extra-axial fluid collection is seen. Ventricles, sulci, cisterns: Prominent secondary to involutional change. Intracranial vasculature: There is atherosclerotic calcification of the cavernous carotid artery. Calvarium: Unremarkable. Sinuses and mastoids: The paranasal sinuses are clear. The mastoid air cells are well pneumatized. Orbits: The bony orbits are grossly intact. There are bilateral ocular lens implants. IMPRESSION: There is no hemorrhage, mass effect, or evidence of acute territorial ischemia by CT criteria. ACT 112: Negative or not required by law. Electronically signed by: Alexi Avendano M.D. 09/30/2023 6:24 PM Head CTA 09/30/23 18:08 CT ANGIOGRAM OF THE BRAIN; CT ANGIOGRAM OF THE NECK CLINICAL HISTORY: Strokelike symptoms. COMPARISON STUDY: Unenhanced CT of the brain performed concurrently on 09/30/2023. TECHNIQUE: Following the IV administration of 117 of Optiray 320, CT angiogram of the head and neck was performed from the aortic arch to the vertex. Images are reviewed in the axial, sagittal, and coronal planes. 3-D MIPS images are created and assessed. IV contrast was administered without complication. All measurements were calculated based on NASCET criteria. A dose lowering technique was utilized adhering to the principles of ALARA. FINDINGS: Brain parenchyma: There is age related involutional change noting moderate subcortical and periventricular microangiopathic disease. There is no evidence of hemorrhage, mass effect, or acute territorial ischemia noting angiographic phase technique. There is no evidence of enhancing mass lesion on the angiogram phase images. The ventricles, sulci, and cisterns are prominent secondary to involutional change. Yip-white matter differentiation is preserved. No extra- axial fluid collection is seen. Thoracic aorta: Visualized portions of the thoracic aorta are normal in caliber. The aortic arch demonstrates standard 3-vessel anatomy. Right carotid arterial system: The right common carotid artery is widely patent, as are the right internal and external carotid arteries. Calcified plaque is noted in the carotid bulb. Left carotid arterial system: The left common carotid artery is widely patent, as are the left internal and external carotid arteries. Calcified plaque is noted in the carotid bulb. Vertebral arteries: The vertebral arteries are widely patent bilaterally and codominant. Subclavian arteries: Widely patent bilaterally. Intracranial vasculature: There is mild atherosclerotic calcification of the cavernous carotid arteries. The internal carotid arteries are patent at the skull base, as are the anterior and middle cerebral arteries bilaterally. The vertebrobasilar system and posterior cerebral arteries are widely patent. The vertebral arteries are codominant. There is no aneurysm, high-grade stenosis, or focal vessel cut off seen throughout the intracranial circulation. Jugular veins: Patent bilaterally. Dural sinuses: Patent. Lung apices: Partially visualized upper lobe lung parenchyma appears clear. Soft tissues: The visualized pharyngeal soft tissues are normal in appearance noting angiographic phase technique. The oropharyngeal airway appears widely patent. Calcified sialoliths are noted in the left parotid gland as well as the submandibular glands. The thyroid gland is normal in size and heterogeneous in attenuation. No cervical lymphadenopathy is seen. Skeletal structures: The skeletal structures are osteopenic. The calvarium appears intact. The cervical spine is maintained noting multilevel spondylosis. Advanced arthritic change is seen in the right shoulder. A left shoulder arthroplasty is in place. There is chronic posttraumatic deformity of the left clavicle, as well as chronic/healed left-sided rib fractures. Orbits: The bony orbits are intact. Orbital contents are normal as visualized noting bilateral ocular lens implants. Sinuses and mastoids: The paranasal sinuses are clear. The mastoid air cells are well pneumatized. IMPRESSION: 1. There is no evidence of hemorrhage, mass effect, or acute territorial ischemia noting angiographic phase technique. 2. Unremarkable CT angiogram of the brain. 3. Unremarkable CT angiogram of the neck. ACT 112: Negative or not required by law. Electronically signed by: Alexi Avendano M.D. 09/30/2023 6:35 PM Neck CTA 09/30/23 18:08 CT ANGIOGRAM OF THE BRAIN; CT ANGIOGRAM OF THE NECK CLINICAL HISTORY: Strokelike symptoms. COMPARISON STUDY: Unenhanced CT of the brain performed concurrently on 09/30/2023. TECHNIQUE: Following the IV administration of 117 of Optiray 320, CT angiogram of the head and neck was performed from the aortic arch to the vertex. Images are reviewed in the axial, sagittal, and coronal planes. 3-D MIPS images are created and assessed. IV contrast was administered without complication. All measurements were calculated based on NASCET criteria. A dose lowering technique was utilized adhering to the principles of ALARA. FINDINGS: Brain parenchyma: There is age related involutional change noting moderate subcortical and periventricular microangiopathic disease. There is no evidence of hemorrhage, mass effect, or acute territorial ischemia noting angiographic phase technique. There is no evidence of enhancing mass lesion on the angiogram phase images. The ventricles, sulci, and cisterns are prominent secondary to involutional change. Yip-white matter differentiation is preserved. No extra- axial fluid collection is seen. Thoracic aorta: Visualized portions of the thoracic aorta are normal in caliber. The aortic arch demonstrates standard 3-vessel anatomy. Right carotid arterial system: The right common carotid artery is widely patent, as are the right internal and external carotid arteries. Calcified plaque is noted in the carotid bulb. Left carotid arterial system: The left common carotid artery is widely patent, as are the left internal and external carotid arteries. Calcified plaque is noted in the carotid bulb. Vertebral arteries: The vertebral arteries are widely patent bilaterally and codominant. Subclavian arteries: Widely patent bilaterally. Intracranial vasculature: There is mild atherosclerotic calcification of the cavernous carotid arteries. The internal carotid arteries are patent at the skull base, as are the anterior and middle cerebral arteries bilaterally. The vertebrobasilar system and posterior cerebral arteries are widely patent. The vertebral arteries are codominant. There is no aneurysm, high-grade stenosis, or focal vessel cut off seen throughout the intracranial circulation. Jugular veins: Patent bilaterally. Dural sinuses: Patent. Lung apices: Partially visualized upper lobe lung parenchyma appears clear. Soft tissues: The visualized pharyngeal soft tissues are normal in appearance noting angiographic phase technique. The oropharyngeal airway appears widely patent. Calcified sialoliths are noted in the left parotid gland as well as the submandibular glands. The thyroid gland is normal in size and heterogeneous in attenuation. No cervical lymphadenopathy is seen. Skeletal structures: The skeletal structures are osteopenic. The calvarium appears intact. The cervical spine is maintained noting multilevel spondylosis. Advanced arthritic change is seen in the right shoulder. A left shoulder arthroplasty is in place. There is chronic posttraumatic deformity of the left clavicle, as well as chronic/healed left-sided rib fractures. Orbits: The bony orbits are intact. Orbital contents are normal as visualized noting bilateral ocular lens implants. Sinuses and mastoids: The paranasal sinuses are clear. The mastoid air cells are well pneumatized. IMPRESSION: 1. There is no evidence of hemorrhage, mass effect, or acute territorial ischemia noting angiographic phase technique. 2. Unremarkable CT angiogram of the brain. 3. Unremarkable CT angiogram of the neck. ACT 112: Negative or not required by law. Electronically signed by: Alexi Avendano M.D. 09/30/2023 6:35 PM Diagnostic Findings EKG as per my interpretation :Great 65, NSR, LAD, LSB, T wave abnormalities inferior leads
[2023-09-30] MEDS ORDERED: OLANZAPINE 2.5 MG TAB PO PRN (20:36)
[2023-09-30] MEDS ORDERED: PROMETHAZINE HCL 6.25 MG in SODIUM CHLORIDE 0.9% 50 ML IV PRN (20:45)
[2023-09-30] MEDS: ACETAMINOPHEN 1,000 MG/100 ML VIAL IV STA (20:49)
[2023-09-30] MEDS: LORATADINE 10 MG TAB PO ONE (20:49)
[2023-09-30] MEDS ORDERED: PHARMACIST DISCHARGE MED REC CONSULT PRN (21:11)
[2023-09-30] MEDS ORDERED: POLYETHYLENE (MIRALAX) 17 GM PACK PO PRN ×2 (21:11→21:16)
[2023-09-30] MEDS ORDERED: SUCRALFATE 1 GM/10 ML UDC PO PRN (21:11)
[2023-09-30] MEDS ORDERED: NON-FORMULARY MEDICATION (Mv-Min-Fa-Vit K-Lutein-Zeaxant [Preservision Areds 2 Plus Mv] 20 PO SCH (21:11)
[2023-09-30] MEDS: SODIUM CHLORIDE 0.9% 1,000 ML IV ONE (21:25)
[2023-09-30] MEDS: PANTOprazole 40 MG TAB PO SCH (22:17)
[2023-09-30] MEDS: SUCRALFATE 1 GM/10 ML UDC PO SCH (22:17)
[2023-09-30] MEDS: FAMOTIDINE 20 MG TAB PO SCH (22:17)
--- NOTE | 2023-09-30 22:24 | Critical Care Consultation ---
Date of Consultation September 30, 2023 Assessment & Plan (1) Acute CVA (cerebrovascular accident): Impression: 82-year-old female presents to the ICU following strokelike symptoms in which she received TNKase at 1900. Now admitted for post TNKase administration protocol. Neuro - Acute CVA?Patient with sudden development of dysarthria, confusion and weakness in the emergency department. CTA head and neck and CT head negative for acute findings. Evaluated by teleneurology recommended TNKase administration. -TNKase administered at 1900. Now admitted to ICU for post TNKase administration 24-hour monitoring per protocol -Follow-up TTE -Follow-up MRI -Neurology consulted Rheumatoid arthritiscontinue home meds when appropriate Major depressive disorders/anxietyappears to be stable. Continue home medication regimen when able to take p.o. Chronic pain syndromehold analgesics and other [employer] depressant as patient is currently drowsy and would further compromise neurological exam. IV Tylenol as needed Cardiac - Acute chest painresolved. Patient had negative troponin x 2. CTA negative for PE. Monitor HTNlisinopril on hold for now. Monitor Respiratory - No history of pulmonary disease. Currently maintaining oxygen on room air without respiratory distress. Patient does appear drowsy on exam but airway not compromised. Continuous monitoring on pulse ox GI - Hiatal hernia/GERDIV PPI. Continue sulfur fate N.p.o. RENAL/LYTES - Creatinine within normal limits, monitor routine BMPs and replete electrolytes as indicated Continue IV fluid resuscitation while n.p.o. - Strict I's and O ENDO - No history of diabetes. Currently euglycemic. ICU hyperglycemic protocol Hypothyroidismcontinue Synthroid when able to take p.o. HEME - H&H stable, monitor for bleeding following thrombolytics administration. Monitor routine CBC ID - No indication for infectious process at this time LINES/IV ACCESS - Peripheral IVs DVT PROPHYLAXIS - SCDs, hold anticoagulation following TNKase administration Thank you for allowing us to participate in the care of this patient. Please refer to my attending physician's documentation for any further recommendations. (2) Precordial chest pain: (3) Rheumatoid arthritis: (4) Tachy-sheryl syndrome: (5) Hypothyroidism: (6) HTN (hypertension): (7) PAF (paroxysmal atrial fibrillation): (8) GERD (gastroesophageal reflux disease): (9) Major depressive disorder, recurrent, severe without psychotic features: (10) STEPHANIE (generalized anxiety disorder): History of Present Illness Attending Physician: Maximo Pandey MD History of Present Illness Patient is a 82-year-old female with past medical history significant for major depressive disorder with recent hospitalization after suicidal ideation, anxiety disorder, fibromyalgia, rheumatoid arthritis, chronic pain syndrome, HTN, tachybradycardia syndrome (s/p pacemaker), paroxysmal A-fib, HLD, hiatal hernia, GERD, hypothyroidism who presented to the emergency department earlier this afternoon with complaints of chest pain for which she underwent evaluation. She underwent CTA chest which was negative for PE. She did have contrast allergy, and was pretreated with Benadryl and Solu-Medrol. Patient became more confused and was experiencing dysarthria and difficulty moving her legs. CT head, CTA head and neck were negative for acute findings. She went underwent evaluation by teleneurology and was given TNKase which was administered at 1900. Patient now admitted to ICU post TNKase administration protocol. Of note, patient did receive additional 25 mg dose of Benadryl following second CTA and was very drowsy on evaluation. On arrival to the ICU patient is somewhat arousable to stimulation but has difficulty staying awake. She was able to follow simple commands including wiggling her toes, squeezing hands, and did state that she was not having pain. However, subjective and neurological exam was significantly compromised due to drowsiness and inability to participate. Allergies Allergy/AdvReac Type Severity Reaction Status Date / Time bee venom protein (honey bee) Allergy Severe "SWELLED Verified 08/05/23 18:47 ALL UP" Iodinated Contrast Media Allergy Intermediate PASSED Verified 08/05/23 18:47 OUT-BODY FELT COLD ALL OVER venlafaxine Allergy Unknown Unknown Verified 08/05/23 18:47 atorvastatin AdvReac Intermediate PAIN IN Verified 08/05/23 18:47 JOINTS gabapentin AdvReac Intermediate HORRIBLE Verified 08/05/23 18:47 HEADACHES rosuvastatin [From Crestor] AdvReac Intermediate PAIN IN Verified 08/05/23 18:47 JOINTS shellfish derived AdvReac Intermediate Headache Verified 08/05/23 18:47 Home Medications Medication Instructions Recorded Confirmed Type calcium 650 mg-vitamin D3 12.5 2 tab PO DAILY 03/05/19 09/30/23 History mcg-vitamin K 40 mcg chewable tablet (Viactiv) levothyroxine 75 mcg tablet 75 mcg PO Q2D 11/02/20 09/30/23 History hydrocodone 10 mg-acetaminophen 1 tab PO Q4 PRN Pain 01/30/21 09/30/23 History 325 mg tablet levothyroxine 50 mcg tablet 50 mcg PO Q2D 01/30/21 09/30/23 History lorazepam 0.5 mg tablet 0.5 mg PO BID Anxiety 01/30/21 09/30/23 History pantoprazole 40 mg tablet,delayed 40 mg PO BID 01/30/21 09/30/23 History release dicyclomine 10 mg capsule 10 mg PO QID Abdominal Pain 04/11/22 09/30/23 History adalimumab 40 mg/0.8 mL 40 mg subcut WK 04/12/22 09/30/23 History subcutaneous syringe kit ([facility]) mv-mn-folic 200 mcg-vit K 15 1 cap PO BID 10/21/22 09/30/23 History mcg-lutein 5 mg-zeaxanthin 1 mg capsule (PreserVision AREDS 2 Plus Multivit) polyethylene glycol 3350 17 gram 17 g PO UD PRN Constipation 10/21/22 09/30/23 History oral powder packet (Miralax) metoprolol succinate 25 mg 25 mg PO QAM 11/18/22 09/30/23 History tablet,extended release 24 hr fentanyl 25 mcg/hr transdermal 1 patch transdermal Q72H 05/14/23 09/30/23 History patch sucralfate 100 mg/mL oral 5 ml PO DAILY PRN Abdominal Pain 05/14/23 09/30/23 History suspension biotin 10,000 mcg capsule 10,000 mcg PO QPM 06/11/23 09/30/23 History multivitamin-ferrous 1 tab PO QAM 06/11/23 09/30/23 History fumarate-folic acid 18 mg-400 mcg tablet (Centrum) duloxetine 60 mg capsule,delayed 60 mg PO DAILY 09/30/23 09/30/23 History release famotidine 20 mg tablet 20 mg PO BID 09/30/23 09/30/23 History furosemide 20 mg tablet 20 mg PO DAILY 09/30/23 09/30/23 History lisinopril 10 mg tablet 10 mg PO QAM 09/30/23 09/30/23 History sucralfate 100 mg/mL oral 1 g PO QID 09/30/23 09/30/23 History suspension Patient History Medical History STEPHANIE (generalized anxiety disorder) Major depressive disorder, recurrent, severe without psychotic features Chronic pain syndrome sees specialist in [place] History of pelvic fracture 04/2023, due to a fall Anxiety Depression Hx of fall ~02/2023, [facility], fx ribs 7-10 and punctured her left lung-had chest tube placed>in hospital for 3-4 days>rib fx have all healed ~04/2023, found pelvic fracture during hip x-ray ~05/30/23>still has bruising on different areas of her body, "cracked the ball joint bone in my right shoulder" and laceration of her arm has had multiple falls over the years Lumbar spondylosis On home oxygen therapy 2 LPM in day 4 LPM at >prn Spinal cord stimulator status removed History of COVID-19 10/28/22 > hospitalized at [facility] > loss of taste and smell, cough, fatigue>still fatigued Basal cell carcinoma REMOVED HTN (hypertension) Tachy-sheryl syndrome Urge incontinence of urine Nutcracker esophagus Pancreatic insufficiency Shortness of breath with activity Paroxysmal atrial fibrillation pacer > follows with Dr. Rodriguez in [place] > no thinners can't tolerate per pt Pacemaker Medtronic > placed November 2020, [facility] > placed for Afib; f/u dr. rodriguez comer JUDI (iron deficiency anemia) Dyslipidemia History of skin cancer removed GERD (gastroesophageal reflux disease) Scoliosis Age related osteoporosis Fibromyalgia Hx of sleep apnea cpap History of concussion MAY 2018 - 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 GETS HEADACHES FROM and falls Rheumatoid arthritis Osteoarthritis Hypothyroidism Surgical History History of eye surgery LASER History of bilateral cataract extraction History of colonoscopy History of total left knee replacement History of rectocele REPAIR WITH MESH AND MESH SINCE REMOVED History of laparoscopic cholecystectomy History of right knee surgery bursa sac removed History of lumbar fusion History of endoscopy DILATION OF ESOPHAGUS History of repair of hiatal hernia History of cardiac cath 2018..CHEST PAIN...[place] - NO FINDINGS...HIATAL HERNIA DX S/P repair of paraesophageal hernia History of partial colectomy S/P lumbar fusion History of repair of right rotator cuff History of bladder suspension procedure History of appendectomy History of partial hysterectomy Family History Sister Colorectal cancer Hypertension Mother Stroke Hypertension Other No pertinent family history Social History Smoking Status: Never smoker Second Hand Exposure: No; Do You Dip or Chew Tobacco: No; Hx Alcohol Use: No Hx Substance Use: No Preferred Language: Yi Communication Ability: Effective Visual Impairment: No Limitations Hearing Ability: Normal Fingerprint Expert Required: No Beliefs That Will Affect Care: Amish marital status: Current Living Situation: Family Current Living Situation Comment: current occupational status: retired Feels Safe at Home: Yes Safety Concerns: Feels Safe At This Time Gender Identity: Female Assistive Devices: Cane, Denture - Upper, Denture - Lower, Glasses and Walker Review of Systems Review of Systems: Unobtainable due to cognitive status Physical Exam Constitutional: + frail appearing and + lethargic Eyes: PERRL, conjunctivae normal, anicteric sclerae ENMT: external ear and nose normal, oropharynx normal Neck: trachea midline, no thyromegaly Respiratory: normal respiratory effort, lungs clear to auscultation Cardiovascular: RRR, no murmur, no edema Heart Sounds: normal S1 and normal S2; no murmur Extremities: no edema Gastrointestinal (Abdomen): normal bowel sounds, soft, nontender, no hepatosplenomegaly Musculoskeletal: Extremities: extremities normal to inspection; no cyanosis Skin: no rashes, warm and dry Neurologic: moves all extremities Exam limited as patient is very drowsy and had trouble staying awake Psychiatric: Orientation: + not alert Results & Data Results & Data Vital Signs (Past 12 Hours) Vital Signs Temp Pulse Pulse Resp BP BP Pulse Ox 09/30/23 22:00 36.7 C 78 18 119/60 94 09/30/23 21:30 36.5 C 89 20 128/70 92 09/30/23 21:12 09/30/23 21:00 85 22 149/76 H 94 09/30/23 21:00 36.8 C 88 20 128/75 94 09/30/23 20:45 99 H 20 154/74 H 95 09/30/23 20:30 99 H 20 154/74 H 95 09/30/23 20:15 99 H 20 160/72 H 95 09/30/23 20:00 99 H 20 154/76 H 96 09/30/23 19:45 96 H 14 152/82 H 96 09/30/23 19:44 96 H 09/30/23 19:30 25 H 160/82 H 93 09/30/23 19:30 92 H 19 160/90 H 94 09/30/23 19:12 98 H 24 155/81 H 93 09/30/23 19:11 93 09/30/23 18:58 99 H 24 144/88 H 93 09/30/23 16:56 92 H 19 110/46 L 92 09/30/23 16:00 74 18 122/48 L 98 09/30/23 15:53 71 09/30/23 12:13 36.3 C L 81 20 113/67 96 O2 Del Method 09/30/23 22:00 Room Air 09/30/23 21:30 Room Air 09/30/23 21:12 Room Air 09/30/23 21:00 Room Air 09/30/23 21:00 Room Air 09/30/23 20:45 Room Air 09/30/23 20:30 Room Air 09/30/23 20:15 Room Air 09/30/23 20:00 Room Air 09/30/23 19:45 Room Air 09/30/23 19:44 09/30/23 19:30 Room Air 09/30/23 19:30 Room Air 09/30/23 19:12 Room Air 09/30/23 19:11 Room Air 09/30/23 18:58 Room Air 09/30/23 16:56 Room Air 09/30/23 16:00 Room Air 09/30/23 15:53 09/30/23 12:13 Room Air Diagnostic Findings CT ANGIOGRAM OF THE BRAIN; CT ANGIOGRAM OF THE NECK CLINICAL HISTORY: Strokelike symptoms. COMPARISON STUDY: Unenhanced CT of the brain performed concurrently on 09/30/2023. TECHNIQUE: Following the IV administration of 117 of Optiray 320, CT angiogram of the head and neck was performed from the aortic arch to the vertex. Images are reviewed in the axial, sagittal, and coronal planes. 3-D MIPS images are created and assessed. IV contrast was administered without complication. All measurements were calculated based on NASCET criteria. A dose lowering technique was utilized adhering to the principles of ALARA. FINDINGS: Brain parenchyma: There is age related involutional change noting moderate subcortical and periventricular microangiopathic disease. There is no evidence o f hemorrhage, mass effect, or acute territorial ischemia noting angiographic phase technique. There is no evidence of enhancing mass lesion on the angiogram phase images. The ventricles, sulci, and cisterns are prominent secondary to involutional change. Yip-white matter differentiation is preserved. No extra- axial fluid collection is seen. Thoracic aorta: Visualized portions of the thoracic aorta are normal in caliber. The aortic arch demonstrates standard 3-vessel anatomy. Right carotid arterial system: The right common carotid artery is widely patent, as are the right internal and external carotid arteries. Calcified plaque is noted in the carotid bulb. Left carotid arterial system: The left common carotid artery is widely patent, as are the left internal and external carotid arteries. Calcified plaque is noted in the carotid bulb. Vertebral arteries: The vertebral arteries are widely patent bilaterally and codominant. Subclavian arteries: Widely patent bilaterally. Intracranial vasculature: There is mild atherosclerotic calcification of the cavernous carotid arteries. The internal carotid arteries are patent at the skull base, as are the anterior and middle cerebral arteries bilaterally. The vertebrobasilar system and posterior cerebral arteries are widely patent. The vertebral arteries are codominant. There is no aneurysm, high-grade stenosis, or focal vessel cut off seen throughout the intracranial circulation. Jugular veins: Patent bilaterally. Dural sinuses: Patent. Lung apices: Partially visualized upper lobe lung parenchyma appears clear. Soft tissues: The visualized pharyngeal soft tissues are normal in appearance noting angiographic phase technique. The oropharyngeal airway appears widely patent. Calcified sialoliths are noted in the left parotid gland as well as the submandibular glands. The thyroid gland is normal in size and heterogeneous in attenuation. No cervical lymphadenopathy is seen. Skeletal structures: The skeletal structures are osteopenic. The calvarium appears intact. The cervical spine is maintained noting multilevel spondylosis. Advanced arthritic change is seen in the right shoulder. A left shoulder arthroplasty is in place. There is chronic posttraumatic deformity of the left clavicle, as well as chronic/healed left-sided rib fractures. Orbits: The bony orbits are intact. Orbital contents are normal as visualized n oting bilateral ocular lens implants. Sinuses and mastoids: The paranasal sinuses are clear. The mastoid air cells are well pneumatized. IMPRESSION: 1. There is no evidence of hemorrhage, mass effect, or acute territorial ischemia noting angiographic phase technique. 2. Unremarkable CT angiogram of the brain. 3. Unremarkable CT angiogram of the neck. CT SCAN OF THE BRAIN WITHOUT IV CONTRAST CLINICAL HISTORY: Strokelike symptoms. COMPARISON STUDY: CT of the brain dated 08/05/2023. TECHNIQUE: Unenhanced axial CT scan of the brain is performed from the vertex to the skull base. A dose lowering technique was utilized adhering to the principles of ALARA. The patient was scanned twice due to motion artifact. FINDINGS: Brain parenchyma: There is age-related involutional change noting moderate subcortical and periventricular microangiopathic disease. There is no hemorrhage, mass effect, or evidence of acute territorial ischemia by CT criteria. Yip-white matter differentiation is preserved. No extra-axial fluid collection is seen. Ventricles, sulci, cisterns: Prominent secondary to involutional change. Intracranial vasculature: There is atherosclerotic calcification of the cavernous carotid artery. Calvarium: Unremarkable. Sinuses and mastoids: The paranasal sinuses are clear. The mastoid air cells are well pneumatized. Orbits: The bony orbits are grossly intact. There are bilateral ocular lens implants. IMPRESSION: There is no hemorrhage, mass effect, or evidence of acute territorial ischemia by CT criteria. CT ANGIOGRAM OF THE CHEST CLINICAL HISTORY: Atypical chest pain. COMPARISON STUDY: Chest x-ray dated 09/30/2023. Chest CT dated 10/22/2022. TECHNIQUE: Following the IV administration of 117 cc of Optiray 320, CT angiogram of the chest was performed from the upper abdomen to the thoracic inlet utilizing the pulmonary embolus protocol. Images are reviewed in the axial, sagittal, and coronal planes. 3-D MIPS images are created and assessed. IV contrast was administered without complication. A dose lowering technique was utilized adhering to the principles of ALARA. The examination is degraded by motion artifact, as well as by streak artifact from the arms which could not be elevated above the chest. CT DOSE: 1470.88 mGy.cm FINDINGS: Thyroid: Normal in size and heterogeneous in attenuation. Thoracic aorta: The thoracic aorta is normal in caliber and demonstrates standard 3-vessel arch anatomy. No dissection is seen. Pulmonary vasculature: The pulmonary trunk is normal in caliber. There are no filling defects identified in main, lobar, or segmental pulmonary branches to suggest pulmonary embolus. Heart: A pacemaker is seen in the left chest wall. The heart is enlarged and without pericardial effusion. Lungs and pleural spaces: Evaluation of the lung parenchyma is significantly degraded by motion artifact. No airspace consolidation or large pleural effusion is identified. Scarring/atelectasis is seen throughout both lungs, greatest at the lung bases. The trachea and central airways are clear. Mediastinum: There is no mediastinal lymphadenopathy. Conchita: Clear. Axillae: There is no axillary lymphadenopathy. Upper abdomen: There is a small to moderate hiatal hernia. Surgical clips are noted in the stomach. Cholecystectomy clips are seen in the right upper quadrant. A duodenal diverticulum is noted. Skeletal structures: The skeletal structures are osteopenic. Degenerative changes and kyphoscoliosis is noted in the spine. No lytic or blastic bony lesions are seen. Advanced arthritic changes seen in the right shoulder with surrounding bursal fluid. A left shoulder arthroplasty is in place. There is chronic posttraumatic deformity of the left clavicle as well as chronic/healed bilateral rib fractures. IMPRESSION: 1. Streak and motion degraded examination. 2. There is no evidence of pulmonary embolus in the main, lobar, or segmental pulmonary arteries. 3. Cardiomegaly and cardiac pacemaker. 4. There is no airspace consolidation or pleural effusion. 5. Additional findings as above. ACT 112: Negative or not required by law. Electronically signed by: Alexi Avendano M.D. 09/30/2023 6:50 PM Coding Level of Care Code 41687 IN/OBS CONSULT LVL 3,45M Diagnoses Acute CVA (cerebrovascular accident) I63.9 Precordial chest pain R07.2 Rheumatoid arthritis M06.9 Rheumatoid arthritis location: unspecified site Rheumatoid factor presence: unspecified presence Tachy-sheryl syndrome I49.5 Hypothyroidism E03.9 HTN (hypertension) I10 PAF (paroxysmal atrial fibrillation) I48.0 GERD (gastroesophageal reflux disease) K21.9 Major depressive disorder, recurrent, severe without psychotic features F33.2 STEPHANIE (generalized anxiety disorder) F41.1 Time Spent (min) 52 (3) Rheumatoid arthritis Rheumatoid arthritis location: unspecified site Rheumatoid factor presence: unspecified presence Qualified Code(s): M06.9 - Rheumatoid arthritis, unspecified
[2023-09-30] MEDS: fentaNYL 25 MCG/HR TDSY TD SCH (22:28)
[2023-09-30] MEDS: ICU Protocol for HYPERglycemia SCH (22:44)
--- OUTSIDE RECORDS SUMMARY | 2023-09-30 23:23 | External Medical Summary | Summary of Care ---
Author Name Unknown Organization [facility] Address [address] [place] [address] Phone [phone] Care Team Providers Care Building Analyst/Supervisor Name Role Phone Sylvester Vines DO Primary Care Provider Reason for Visit * Reason Onset Date Comments Medication Refill 09/17/2023 Encounter Details Date Type Department Care Team (Late st Contact Info) Description 09/17/2023 Refill Family Medicine [address] [place] [phone] Sylvester Vines DO [address] [place] [address] [address] T[address]edi [id number] Allergies Active Allergy Reactions Criticality Noted Date Comments Atorvastatin Low 01/24/2004 myalgias with normal serum CK Other reaction(s): PAIN IN JOINTS, Unknown Bee Venom 11/23/2014 swelling Rosuvastatin Calcium Hives Medium 04/28/2008 Hives day #2 Crestor Apixaban 08/01/2020 Headaches, dizziness Gabapentin 12/15/2003 Neurontin- memory loss Headaches Gabapentin High 07/19/2022 Other Reaction(s): HORRIBLE HEADACHES, Unknown Gadolinium 04/25/2023 Other Reaction(s): Unknown Iodinated Contrast Media High 10/01/2015 Ivp Dye Chills/rigors,Other (Please comment) High 12/15/2003 Sneezing immediately after receiving dye Linaclotide Abdominal pain,Other (Please comment) 05/26/2020 Blurred vision Rosuvastatin Unknown High 05/29/2022 Other reaction(s): PAIN IN JOINTS Shellfish-Derived Products Low 01/30/2021 Other reaction(s): Headache Venlafaxine 12/15/2003 Effexor XR- vision problems documented as of this encounter (statuses as of 09/17/2023) Medications Medication Sig Dispensed Refills Start Date End Date Status Calcium-Vitamin D-Vitamin K 500-500-40 MG-UNT-MCG Oral Tablet Chewable Take 500 Tablets by mouth in the morning and 500 Tablets before bedtime. 0 Active Alum Hydroxide-Mag Carbonate 95-358 MG/15ML Oral Suspension Take by mouth . 2-3 x day 0 Active nitroglycerin (NITROSTAT) 0.[address] 1 Tab under the tongue as needed for Pain, Chest. May repeat 3 times. If chest pain continues, call 911. 25 Tab 11 8 Active Fluocinonide 0.05 % external solutionIndications :Seborrheic dermatitis of scalp Apply to scalp daily x 2 weeks, then as needed for itching. 60 mL 1 9 Active PreserVision AREDS 2+Multi Vit Oral Capsule Take by mouth. 0 Active Polyethylene Glycol 3350 17 GM/SCOOP Oral Powder (MiraLax) Take 17 g by mouth as needed for Constipation. Dissolve one heaping tablespoon in 8 ounces of water or juice. 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 60 Tablet 2 10/11/202 2 Active oxygen IN GASIndications:Noct urnal hypoxemia,Chronic diastolic heart failure (HCC),ARTHUR (obstructive sleep apnea) 1 LPM via nasal cannula with all and any sleep 1 Each 0 2 Active ProAir HFA 108 (90 Base) MCG/ACT Inhalation Aerosol Solution Inhale 2 Puffs by mouth in the morning and 2 Puffs at noon and 2 Puffs in the evening and 2 Puffs before bedtime. 18 g 3 2 Active Diclofenac Sodium 1 % External Gel (Voltaren) Use 2 GM's topically on back up to 4 times daily. 150 g 5 2 Active Levothyroxine Sodium 75 MCG Oral Tablet (Synthroid)Indicati ons:Acquired hypothyroidism Taking 75mcg one day alternating with 50mcg every other day 15 Tablet 11 3 Active Metoprolol Succinate ER 25 MG Oral Tablet Extended Release 24 Hour (toPROL XL) Take 1 Tablet by mouth in the morning. 0 2 Active Flecainide Acetate 50 MG Oral Tablet (Tambocor) Take 1 Tablet by mouth in the morning and 1 Tablet before bedtime. 0 2 Active fentaNYL 25 MCG/HR Transdermal Patch 72 Hour (Duragesic) Apply 1 Patch topically to affected area every 3 days. 0 3 Active Furosemide 20 MG Oral Tablet (Lasix) Take 1 Tablet by mouth in the morning. 0 Active Famotidine 20 MG Oral Tablet (Pepcid) Take 1 Tablet by mouth at bedtime. 90 Tablet 1 3 Active Sucralfate 1 GM/10ML Oral Suspension (Carafate) Take 10 mL by mouth in the morning and 10 mL at noon and 10 mL in the evening and 10 mL before bedtime. 900 mL 2 3 Active Potassium Chloride Tabby ER 10 MEQ Oral Tablet Extended Release Take 1 Tablet by mouth daily. 0 3 Active Pantoprazole Sodium 40 MG Oral Tablet Delayed Release (Protonix)Indicatio ns:Paroxysmal atrial fibrillation (HCC),Gastroesophag eal reflux disease without esophagitis Take 1 Tablet by mouth in the morning and 1 Tablet before bedtime. 180 Tablet 1 3 Active Levothyroxine Sodium 50 MCG Oral Tablet (Levoxyl) TAKE ONE TABLET BY MOUTH EVERY OTHER DAY alternating with 75mcg every other day 15 Tablet 5 3 Active CPAP every night at bedtime. 0 Active Fluticasone-Salmete rol 115-21 MCG/ACT Inhalation Aerosol (Advair HFA) Inhale 2 Puffs by mouth in the morning and 2 Puffs before bedtime. 12 g 12 3 Active Meclizine HCl 25 MG Oral Tablet (Antivert) Take 1 Tablet by mouth 3 times a day as needed for Dizziness. 30 Tablet 1 3 Active WalkerIndications:F requent falls One walker with wheels; no seat. Dx: Ambulatory dysfunction, history of falls 1 Each 0 3 Active Dicyclomine HCl 10 MG Oral Capsule (Bentyl) Take 1 Capsule by mouth 4 times a day as needed for Cramping. For abdominal pain 120 Capsule 11 3 Active Armodafinil 250 MG Oral Tablet (Nuvigil) Take 1 Tablet by mouth in the morning. 90 Tablet 0 3 Active methylPREDNISolone 4 MG Oral Tablet Therapy Pack (Medrol Dosepack) follow package directions 21 Tablet 4 3 Active Lidocaine 4 % External Patch Apply 1 Patch topically to affected area in the morning. 0 3 Active Naloxone HCl 4 MG/0.1ML Nasal Liquid Administer 1 [place] into nostril. 0 3 Active Sennosides 8.6 MG Oral Tablet daily. 0 3 Active Botox 100 UNIT Injection Solution Reconstituted (botulinum toxin type a)Indications:Intra ctable chronic migraine without aura and without status migrainosus Inject 200 units subcutaneously and IM according to the PREEMPT protocol for chronic migraine 0 Active Humira 40 MG/0.4ML Subcutaneous Prefilled Syringe Kit (Adalimumab) Inject 0.4 mL under the skin once a week. 4.8 mL 3 3 Active Bumetanide 0.5 MG Oral Tablet (Bumex) Take 1 Tablet by mouth in the morning. 30 Tablet 1 3 Active LORazepam 0.5 MG Oral Tablet (Ativan)Indications :STEPHANIE (generalized anxiety disorder) Take 1 Tablet by mouth daily as needed for Agitation or Anxiety. No more than 1 tab in 24 hours 30 Tablet 0 3 Active DULoxetine HCl 20 MG Oral Capsule Delayed Release Particles (duloxetine) Take 30 mg by mouth in the morning. 0 Active Lisinopril 10 MG Oral Tablet (Prinivil) Take 1 Tablet by mouth in the morning. 30 Tablet 5 4 Active Lisinopril 10 MG Oral Tablet (Prinivil) Take 1 Tablet by mouth in the morning. 30 Tablet 0 3 09/17/19 24 Discontinu ed(Refill) documented as of this encounter (statuses as of 09/17/2023) Active Problems Problem Noted Date Diagnosed Date Depression with anxiety 03/24/2023 COPD, group B, by GOLD 2017 classification 03/17 Overview: Per COPD GOLD Classification History of pulmonary embolism 01/28/2023 Renal lesion 11/12/2022 SCC (squamous cell carcinoma) 09/20/2022 Overview: Invasive. 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 Age-related osteoporosis wit hout current pathological fracture 03/26/2021 Urge incontinence of urine 03/02/2021 Chronic migraine 10/24/2020 Paroxysmal atrial fibrillation 07/25/2020 Hypothyroidism due to acquired atrophy of thyroi d 08/19/2019 Controlled substance agreement signed 12/16/2017 ARTHUR (obstructive sleep apnea) 12/02/2017 Overview: untreated Somatization disorder 10/30/2017 Paraesophageal hernia 05/27/2015 GERD (gastroesophageal reflux disease) 5 Pancreatic insufficiency 02/01/2014 Rheumatoid arthritis 02/01/2014 Degeneration of lumbosacral intervertebral disc 01/13/2009 HTN, goal below 130/80 12/15/2003 Fibromyalgia 12/15/2003 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 (statuses as of 09/17/2023) Resolved Problems Problem Noted Date Diagnosed Date Resolved Date Leg wound, right, initial encounter 01/28/2023 03/24/2023 History of 2019 novel kunz virus disease (COVID-19) 11/12/2022 03/24/2023 COPD, group A, by GOLD 2017 classification 09/11/2022 03/20/2023 Overview: Per COPD GOLD Classification Spinal cord stimulator status 02/12/2022 03/24/2023 Colonic mass 11/29/2021 12/07/2021 Hx of actinic keratosis 08/29/202110/03 Advanced directives, counseling/discussion 03/02/2021 03/26/2021 Overview: Yes, copy scanned at patient level in the electronic medical record. Patient aware they must notify their healthcare provider of changes. (Go to More Activities and Patient Files to view) Feeling of incomplete bladder emptying 03/02/2021 05/02/2021 Iron deficiency anemia 01/19/202111/12 Low serum iron 01/18/2021 03/26/2021 Polypharmacy 01/18/2021 03/24/2023 Sensorineural hearing loss (SNHL), bilateral 0 03/26/2021 S/P insertion of spinal cord stimulator 02/29/2020 03/24/2023 Medical home patient encounter 02/29/2020 03/24/2023 Overview: Sees: [place] [facility] (Dr Carias), Dr Matute, Alfred Caballero (spinal stim), Dr Ortiz [facility] ortho. 11/22 EGD [facility] -gastritis. -TTE normal EF. LAE/CARMELINA, mild MR, mild-mod MR. 06/23 TTE normal EF mild LVH Gr I garcia dys 04/23 Quantiferon WNL Sacroiliitis 08/19/2019 06/03/2021 Recurrent major depressive d isorder, in partial remission 06/04/2018 03/24/2023 Somatic symptom disorder 08/12/201708/2017 CSA (central sleep apnea) 06/12/2017 Overview: CPAP [address] [facility] Hx of nonmelanoma skin cancer 06/04/2017 03/24/2023 Overview: SCCIS R anterior thigh and L anterior lower leg 04/2021, SCC right posterior scalp 05/22,SCC in situ on the right lateral cheek 08/22, BCC left medial cheek 2017, BCC right upper lip 2017, BCC central forehead 2016, SCC left hand 2016 Nocturnal hypoxemia 01/18/2017 03/24/20 23 Antonia's thyroiditis 11/08/201611/03 Pain, pelvic, female 11/06/2011 018 Vasomotor headache 11/05/2011 Superficial bruising 11/05/2011 018 Hypothyroidism 08/23/2010 05/02/2021 Dyslipidemia, goal to be determined 07/19/2009 12/29/2009 Overview: Per Lipid Taxonomy. Prolapse of vaginal vault after hysterectomy 8 06/04/2018 Rectocele 12/03/2006 06/04/2018 PURE HYPERCHOLESTEROLEM 12/16/200307/04 Overview: Per Lipid Taxonomy. Hx COLON POLYPS 12/15/2003 06/04/2018 FAM HX COLON CANCER -sister 12/15/2003 06/04/2018 Family history of other card iovascular diseases 12/15/2003 06/04/2018 Overview: ICD-10 update of inactive term Other osteoporosis without c urrent pathological fracture 12/15/2003 03/26/2021 Overview: ICD-10 update of inactive term GENERAL OSTEOARTHROSIS 12/15/200306/04 Hiatal hernia 06/04/2018 Osteoporosis 12/24/2017 Concussion syndrome 06/04/20 18 documented as of this encounter (statuses as of 09/17/2023) Immunizations Name Administration Dates Next Due COVID-19 mRNA, LNP-s, No Pre serve, 2-Dose Series (Pfizer) 04/17/2021,03/27/2021 Pneumococcal Conjugate Vacc, 13 Valent (Prevnar) 08/23/2014 Pneumococcal Polysaccharide PPV23 (Pneumovax) 01/30/2016 Season Influenza, Quad, PF, Adjuvanted, 65+ Yrs, IM (FLUAD) 06/13/2020 Seasonal Influenza Virus Vac cine, Unspecified Formulation 05/02/2021,06/13/2020,04/01/2019,05/05,04/12/2016,05/10/2014,04/16/2013 ,05/26/2012,06/13/2011,04/19/2010,04/04 Seasonal Influenza, PF, 6 M & above, IM , (FluLaval or Fluzone) 05/05/2018 Seasonal Influenza, Quadriva lent Hd (Fluzone Hd) 07/04/2023,04/17/2022,05/02/2021 Seasonal Influenza, Quadriva lent, No Preserve, IM 04/12/2016,05/16/2015 Seasonal Influenza, Split, I IV3, With Preserve, Inj 05/10/2014,04/16/2013,05/26/2012,06/13,04/19/2010,04/18/2009 Seasonal Influenza, Trivalen t, Adjuvanted, 65+ yrs 04/01/2019 TD, Preservative Free 04/19/2010 documented as of this encounter Social History Tobacco Use Types Packs/Day Years Used Date Smoking Tobacco: Never Smokeless Tobacco: Never Alcohol Use Standard Drinks/Week Comments No 0 (1 standard drink = 0.6 oz pur e alcohol) PHQ-2 Answer Date Recorded PHQ Adult Total Score 2 06/04/2021 Hunger Vital Sign Answer Date Recorded Within the past 12 months, y ou worried that your food would run out before you got the money to buy more. Never true 02/29/20 23 Within the past 12 months, t he food you bought just didn't last and you didn't have money to get more. Never true 02/28/2023 Sex and Gender Information Value Date Recorded Sex Assigned at Female 10/07/2019 12:29 PM EST Gender Identity Female 10/07/2019 12:29 PM EST Sexual Orientation Straight 10/07/2019 12 :29 PM EST Job Start Date Occupation Industry Not on file Not on file Not on file documented as of this encounter Functional Status Functional Status Response Date of Assess ment Are you deaf or do you have serious difficulty h earing? No 11/28/2021 Are you blind or do you have serious difficulty seeing, even when wearing glasses? No 11/28/2021 Do you have serious difficul ty walking or climbing stairs? (5 years old or older) No 11/29/2021 Do you have difficulty dress ing or bathing? (5 years old or older) No 11/28/2021 Because of a physical, menta l, or emotional condition, do you have difficulty doing errands alone such as visiting a doctor s office or shopping? (15 years old or older) No 11/29/19 Cognitive Status Response Date of Assessm ent Because of a physical, menta l, or emotional condition, do you have serious difficulty concentrating, remembering, or making decisions? (5 years old or older) No 11/28/2021 documented as of this encounter Miscellaneous Notes * Telephone Encounter - Sylvester Vines DO - 09/17/2023 4:51 PM ESTSigned Prescriptions: Disp Refills Lisinopril 10 MG Oral Tablet (Prinivil) 30 Tab*5 Sig: Take 1 Tablet by mouth in the morning. Authorizing Provider: SYLVESTER VINES * Telephone Encounter - Suki Wahl RN - 09/17/2023 11:26 AM ESTPending Prescriptions: Disp Refills Lisinopril 10 MG Oral Tablet (Prinivil) 30 Tab*5 Sig: Take 1 Tablet by mouth in the morning. * Telephone Encounter - Anila Mcginnis, ARTHUR - 09/17/2023 10:46 AM EST Did you pend patient's preferred pharmacy and medication before forwarding?yes Pharmacy: [id number] [address] [facility] Pending Prescriptions: Disp Refills Lisinopril 10 MG Oral Tablet (Prinivil) 30 Tab*0 Sig: Take 1 Tablet by mouth in the morning. Last Visit: 07/04/2023 (in office), 08/21/2023 (telemedicine) Next Visit: 02/04/2024 If no future appointments scheduled, and last appointment is greater than a year ago, please schedule patient for a follow-up appointment Last date the medication was ordered: 07/22/23 Is this request for a controlled substance?No Urine Drug Screen: Results for orders placed or performed in visit on 07/12/20 OPIOIDS/BENZO COMPLIANCE MONITORING W/INTERP Result Value COMPLIANCE INTERP (NOTE) URINE DRUG SCREEN RESULT Amphetamine NEGATIVE Benzodiazepines NEGATIVE Cannabinoids NEGATIVE Cocaine Metabolite NEGATIVE HYDROCODONE REFER TO CONFIRMATION RESULT (A) METHADONE METABOLITE NEGATIVE Morphine / Codeine NEGATIVE OXYCODONE NEGATIVE COMMENT THE ABOVE SCREENING RESULTS ARE PRESUMPTIVE AND CAN ONLY BE USED FOR MEDICAL PURPOSES. CONFIRMATORY TESTING IS AVAILABLE UPON REQUEST. Cutoff Concentration URINE VALID INTERP NORMAL CREATININE SOULEYMANE 60 *Note: Due to a large number of results and/or encounters for the requested time period, some results have not been displayed. A complete set of results can be found in Results Review. Patient Phone Numbers Labs: Lab Results Component Value Date/Time CREAT 0.9 08/25/2023 12:00 AM CREAT 0.7 06/05/2020 01:36 PM POTASSIUM 4.2 08/25/2023 12:00 AM POTASSIUM 4.1 06/05/2020 01:36 PM TSH 1.23 08/25/2023 12:00 AM TSH 1.43 07/07/2020 12:06 PM LDLCALC 135 11/10/2021 06:44 AM LDLCALC 127 10/28/2018 08:41 AM LDLDIRECT NOT APPLICABLE 10/28/2018 08:41 AM ALT 24 04/25/2023 11:38 AM ALT 38 (H) 06/05/2020 01:36 PM HGBA1C 5.4 10/24/2020 03:07 PM HGBA1C 5.2 03/17/2017 10:49 AM documented in this encounter Plan of Treatment Upcoming Encounters Date Type Department Care Team (Late st Contact Info) Description 10/10/2023 1:00 PM EST [facility] [address] [phone] Ofe Toure DO [address] [address] 10/28/2023 10:40 AM EDT Office Visit Rheumatology [place] [id number] [address] [place] [address] Roberth Roy MD [facility] [place] [address] 02/04/2024 1:50 PM EDT Office [address] [phone] [address] [place] [address] 03/11/2024 1:15 PM EDT Office Visit Ophthalmology, [facility] [address] [address] Timur Roque DO [address] [address] Health Maintenance Due Date Last Done Comments Alpha-1 Antitrypsin 1960 Zoster Vaccines (1 of 2) 1961 *BISPHONATE OR OTHER ACCEPTABLE MEDICATION NEEDED FOR OSTEOPOROSIS (REFER TO SMARTSET #1146) 03/03/2020 COVID-19 Vaccine (3 - Pfizer risk series) 05/15/2021 04/17/2021, 03/27/2021 Depression Screening 06/04/2022 06/04/2021, 01/01/20 Albumin/Creatinine Ratio 04/09/2023 04/09/2022 CKD PHOS USE SMARTSET 82647 04/09/2023 09/0 01/2022, 07/21/2014, 12/17/2012 GFR 02/23/2024 08/25/2023, 04/05, 02/24/2023, Additional history exists O2 ASSESSMENT COMPLETED IN PAST YEAR FOR COPD 07/04/2024 07/04/2023 CKD HGB USE SMARTSET 09739 08/25/202408/25, 04/25/2023, 04/25/2023, Additional history exists TSH 08/25/2024 08/25/2023, 11/02, 04/09/2022, Additional history exists DXA Scan 04/10/2025 04/10/2023, 04/05, 05/20/2017, Additional history exists COLONOSCOPY-EVERY 5 YRS AGES 18-100 06/20/2026 06/20/2021, 04/10/2021, 04/10/2021, Additional history exists DTaP,Tdap,and Td Vaccines (2 - Td or Tdap) 01/01/2028 12/31/2017 (Declined), 04/19/2010 Pneumococcal Vaccine: 65+ Years Completed 01/30/2016, 08/23/2014 VITAMIN D LEVEL ONCE IN A LIFETIME-USE SMARTSET# 96046 Completed 04/25/2023, 01/25/2022, 01/14/2019, Additional history exists Influenza Vaccine (FLU shot) Completed 08/2022, 04/17/2022, 05/02/2021, Additional history exists GARDASIL-HPV IMMUNIZATION SERIES Aged Out No longer eligible based on patient's age to complete this topic Hepatitis B Aged Out No longer eligi ble based on patient's age to complete this topic MENINGOCOCCAL (MENACTRA/MENVEO) Aged Out No longer eligible based on patient's age to complete this topic documented as of this encounter Medical Devices Implanted Type Area Pick Up Device Identifier Shelf Expiration Date Model / Serial / Lot Alloderm 2x4cm [id number] (8 Units) - [id number] Implanted:Qty : 8 on 05/25/2015 [place] [facility] [place] - Human N/A: Esophagus LIFE CELL AQUILINO 01/01/2017 [id number] / / [id number] Mesh Pelvic Gynamesh Gpsl - [id number] [place]planted:Q[place] : 1 on 06[place]01/2008 [place] [facility] [place]ilateral: Pelvis [employer]HA [employer] AICHA 08/04/2012 GPSL / / [id number] Clip Quick 2.8mm 230cm - [id number] Implanted:Qty : 3 on 04/10/2021 by Belinda Parikh MD at [facility] Colon [employer] 05/03/2022 [id number] / / documented as of this encounter Advance Directives Documents on File Type Date Recorded Patient Family Helper Expl anation Advance Directives and Living Will 03/29/2008 Latest Code Status on File Code Status Date Activated Date Inactivated Comments Full Code 11/28/2021 3:33 PM 11/30/2021 3:14 PM Question Answer Comments Discussion of Advance Direct jeremiah occurred with: Not Discussed Does the patient have a Living Will? No Does the patient have Health Care Power of Golf Sales Manager? No Code Status History Code Status Date Activated Date Inactivated Comments Full Code 05/25/2015 7:17 PM 05/27/2015 5:03 PM Thi s order reflects the patients wishes and were consensually agreed upon. Full Code 05/25/2015 1:12 PM 05/25/2015 7:17 PM Thi s order reflects the patients wishes and were consensually agreed upon. Full Code 06/01/2008 4:58 PM 06/02/2008 8:10 PM Care Teams Building Analyst/Supervisor Relationship Specialty Start Date End Date Sylvester Vines DO [address] [place] [address] [address] [address] [id number] PCP - General Internal Medicine 06/11/23 documented as of this encounter
--- OUTSIDE RECORDS SUMMARY | 2023-09-30 23:23 | External Medical Summary | Summary of Care ---
Author Name Unknown Organization [facility] Address [address] [place] [address] Phone [phone] Care Team Providers Care Plater Barrel Name Role Phone Ernestina Swanson DO Primary Care Provider Reason for Visit * Reason Onset Date Comments Advice 06/11/2023 Encounter Details Date Type Department Care Team (Late st Contact Info) Description 06/11/2023 Telephone Family Practice [facility] [address] [place] [phone] Ambrose Ribera MD [address] [place] [phone] Advice Allergies Active Allergy Reactions Criticality Noted Date [...] as of this encounter (statuses as of 09/10/2023) Medications Medication Sig Dispensed Refills Start Date [...] pain continues, call 911. 25 Tab 11 07/06/2018 Active Fluocinonide 0.05 % external solutionIndications :Seborrheic dermatitis of scalp Apply to scalp daily x 2 weeks, then as needed for itching. 60 mL 1 05/25/2019 Active PreserVision AREDS 2+Multi Vit Oral Capsule Take by mouth. 0 Active Polyethylene Glycol 3350 17 GM/SCOOP Oral Powder (MiraLax) Take 17 g by mouth as needed for Constipation. Dissolve one heaping tablespoon in 8 ounces of water or juice. 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 60 Tablet 2 05/14/2022 Active oxygen IN GASIndications:Noct urnal hypoxemia,Chronic diastolic heart failure (HCC),ARTHUR (obstructive sleep apnea) 1 LPM via nasal cannula with all and any sleep 1 Each 0 06/19/2022 Active ProAir HFA 108 (90 Base) MCG/ACT Inhalation Aerosol Solution Inhale 2 Puffs by mouth in the morning and 2 Puffs at noon and 2 Puffs in the evening and 2 Puffs before bedtime. 18 g 3 06/26/2022 Active Diclofenac Sodium 1 % External Gel (Voltaren) Use 2 GM's topically on back up to 4 times daily. 150 g 5 07/24/2022 Active Levothyroxine Sodium 75 MCG Oral Tablet (Synthroid)Indicati ons:Acquired hypothyroidism Taking 75mcg one day alternating with 50mcg every other day 15 Tablet 11 09/09/2022 Active Metoprolol Succinate ER 25 MG Oral Tablet Extended Release 24 Hour (toPROL XL) Take 1 Tablet by mouth in the morning. 0 06/28/2022 Active Flecainide Acetate 50 MG Oral Tablet (Tambocor) Take 1 Tablet by mouth in the morning and 1 Tablet before bedtime. 0 06/28/2022 Active fentaNYL 25 MCG/HR Transdermal Patch 72 Hour (Duragesic) Apply 1 Patch topically to affected area every 3 days. 0 09/27/2022 Active Furosemide 20 MG Oral Tablet (Lasix) Take 1 Tablet by mouth in the morning. 0 Active Famotidine 20 MG Oral Tablet (Pepcid) Take 1 Tablet by mouth at bedtime. 90 Tablet 1 01/02/2023 Active Sucralfate 1 GM/10ML Oral Suspension (Carafate) Take 10 mL by mouth in the morning and 10 mL at noon and 10 mL in the evening and 10 mL before bedtime. 900 mL 2 01/14/2023 Active Potassium Chloride Tabby ER 10 MEQ Oral Tablet Extended Release Take 1 Tablet by mouth daily. 0 01/13/2023 Active Pantoprazole Sodium 40 MG Oral Tablet Delayed Release (Protonix)Indicatio ns:Paroxysmal atrial fibrillation (HCC),Gastroesophag eal reflux disease without esophagitis Take 1 Tablet by mouth in the morning and 1 Tablet before bedtime. 180 Tablet 1 02/06/2023 Active Levothyroxine Sodium 50 MCG Oral Tablet (Levoxyl) TAKE ONE TABLET BY MOUTH EVERY OTHER DAY alternating with 75mcg every other day 15 Tablet 5 02/20/2023 Active CPAP every night at bedtime. 0 Active Fluticasone-Salmete rol 115-21 MCG/ACT Inhalation Aerosol (Advair HFA) Inhale 2 Puffs by mouth in the morning and 2 Puffs before bedtime. 12 g 12 03/11/2023 Active Meclizine HCl 25 MG Oral Tablet (Antivert) Take 1 Tablet by mouth 3 times a day as needed for Dizziness. 30 Tablet 1 03/24/2023 Active WalkerIndications:F requent falls One walker with wheels; no seat. Dx: Ambulatory dysfunction, history of falls 1 Each 0 04/04/2023 Active Dicyclomine HCl 10 MG Oral Capsule (Bentyl) Take 1 Capsule by mouth 4 times a day as needed for Cramping. For abdominal pain 120 Capsule 11 04/08/2023 Active Armodafinil 250 MG Oral Tablet (Nuvigil) Take 1 Tablet by mouth in the morning. 90 Tablet 0 04/14/2023 Active methylPREDNISolone 4 MG Oral Tablet Therapy Pack (Medrol Dosepack) follow package directions 21 Tablet 4 04/14/2023 Active Lidocaine 4 % External Patch Apply 1 Patch topically to affected area in the morning. 0 02/25/2023 Active Naloxone HCl 4 MG/0.1ML Nasal Liquid Administer 1 [place] into nostril. 0 02/24/2023 Active Sennosides 8.6 MG Oral Tablet daily. 0 02/24/2023 Active Botox 100 UNIT Injection Solution Reconstituted (botulinum toxin type a)Indications:Intra ctable chronic migraine without aura and without status migrainosus Inject 200 units subcutaneously and IM according to the PREEMPT protocol for chronic migraine 0 Active Humira 40 MG/0.4ML Subcutaneous Prefilled Syringe Kit (Adalimumab) Inject 0.4 mL under the skin once a week. 4.8 mL 3 05/08/2023 Active Bumetanide 0.5 MG Oral Tablet (Bumex) Take 1 Tablet by mouth in the morning. 30 Tablet 1 05/09/2023 Active documented as of this encounter (statuses as of 09/10/2023) Active Problems Problem Noted Date Diagnosed Date [...] as of this encounter (statuses as of 09/10/2023) Resolved Problems Problem Noted Date Diagnosed Date Resolved Date Leg wound, right, initial encounter 01/28/2023 03/24/2023 History of 2019 novel kunz virus disease (COVID-19) 11/12/2022 03/24/2023 COPD, group A, by GOLD 2017 classification 09/11/2022 03/20/2023 Overview: Per COPD GOLD Classification Spinal cord stimulator status 02/12/2022 03/24/2023 Colonic mass 11/29/2021 12/07/2021 Hx of actinic keratosis 08/29/2021 03/2 04/2022 Advanced directives, counseling/discussion 03/02/2021 03/26/2021 Overview: Yes, [...] home patient encounter 02/29/2020 03/24/2023 Overview: Sees: [place] Arthritis (Dr Carias), Dr Matute, Alfred Caballero (spinal stim), Dr Ortiz [facility] ortho. 11/22 EGD [facility] -gastritis. -TTE normal EF. LAE/CARMELINA, mild MR, mild-mod MR. 06/23 TTE normal EF mild LVH Gr I garcia dys 04/23 Quantiferon WNL Sacroiliitis 08/19/2019 06/03/2021 Recurrent major depressive d isorder, in partial remission 06/04/2018 03/24/2023 Somatic symptom disorder 08/12/201708/2017 CSA (central sleep apnea) 06/12/2017 Overview: CPAP 7 cwp [facility] Hx of nonmelanoma skin cancer 06/04/2017 [...] as of this encounter (statuses as of 09/10/2023) Immunizations Name Administration Dates Next Due COVID-19 mRNA, LNP-s, No Pre serve, 2-Dose Series ([place]) 04/17/2021,03/27/2021 Pneumococcal Conjugate Vacc, 13 Valent (Prevnar) 08/23/2014 Pneumococcal Polysaccharide PPV23 (Pneumovax) 01/30/2016 Season Influenza, Quad, PF, Adjuvanted, 65+ Yrs, IM (FLUAD) 06/13/2020 Seasonal Influenza Virus Vac cine, Unspecified Formulation 05/02/2021,06/13/2020,04/01/2019,05/05,04/12/2016,05/10/2014,04/16/2013 ,05/26/2012,06/13/2011,04/19/2010,04/04 Seasonal Influenza, PF, 6 M & above, IM , (FluLaval or Fluzone) 05/05/2018 Seasonal Influenza, Quadriva lent Hd (Fluzone Hd) 04/17/2022,05/02/2021 Seasonal Influenza, Quadriva lent, No Preserve, IM [...] encounter Miscellaneous Notes * Telephone Encounter - Sujey Manzo LPN - 06/17/2023 4:31 PM EST Pt will be seeing by new PCP * Telephone Encounter - Sujey Manzo LPN - 06/11/2023 2:07 PM EST Called and spoke with pt, advised that Dr. Ribera did not send in prescription. Unsure who pt would like as a PCP. Pt asking for available information for mental health services. Pt states she feels like she is going to come out of her skin. Pt given number for crisis. Will send Octavian message with any resources for mental health services that I can find. Pt state daughter controls myg and will assist pt with message. * Telephone Encounter - Ambrose Ribera MD - 06/11/2023 9:59 AM EST Per previous encounters, patient no longer wants me to be her PCP. * Telephone Encounter - Ykoasta Camilo LPN - 06/11/2023 9:44 AM EST Pt is calling and states that she has been looking for a doctor to help her with depression but sheis not able to find one. Pt is asking if PCP has any recommendations? Pt is also asking if she could be referred to an local primary care sales representative to discuss her tyroid medications? Please advise. Pt is also requesting a refill of Lorazepam. Med pended. Pharmacy selected. Pending Prescriptions: Disp Refills LORazepam 0.5 MG Oral Tablet (Ativan) 30 Tab*0 Sig: Take 1 Tablet by mouth daily as needed for Agitation or Anxiety. No more than 1 tab in 24 hours Last Visit: 05/09/2023 (in office), 11/24/2019 (telemedicine) Next Visit: Visit date not found Last date the medication was ordered: 05/12/23 Patient Active Problem List Diagnosis Code HTN, goal below 130/80 I10 Fibromyalgia M79.7 Degeneration of lumbosacral intervertebral disc M51.37 Pancreatic insufficiency K86.89 Rheumatoid arthritis (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) I50.32 Chronic kidney disease, stage 3a ([facility]) N18.31 History of partial colectomy Z90.49 Drug induced constipation K59.03 Solar purpura ([facility]) D69.2 SCC (squamous cell carcinoma) C44.92 Renal lesion N28.9 History of pulmonary embolism Z86.711 COPD, group B, by GOLD 2017 classification ([facility]) J44.9 Depression with anxiety F41.8 Labs: Lab Results Component Value Date/Time CREATININE - [facility] 0.9 04/25/2023 11:38 AM CREATININE - [facility] 0.7 06/05/2020 01:36 PM CREATININE [place] 60 07/12/2020 02:41 PM CREATININE, RANDOM URINE - [facility] 72 04/09/2022 03:39 PM CREATININE-OUTSIDE LAB 0.65 11/26/2022 12:00 AM Lab Results Component Value Date/Time POTASSIUM - [facility] 3.8 04/25/2023 11:38 AM POTASSIUM - [facility] 4.1 06/05/2020 01:36 PM POTASSIUM-OUTSIDE LAB 4.0 11/26/2022 12:00 AM Lab Results Component Value Date/Time TSH - [facility] 0.82 11/12/2022 02:58 PM TSH - [facility] 1.43 07/07/2020 12:06 PM TSH - OUTSIDE LAB 0.735 04/27/2020 12:00 AM Lab Results Component Value Date/Time LDL CHOLESTEROL (CALCULATED) - [facility] 127 10/28/2018 08:41 AM LDL CHOLESTEROL (CALCULATED) - [facility] 119 08/01/2015 09:02 AM LDL CHOLESTEROL (DIRECT MEASURE) - [facility] NOT APPLICABLE 10/28/2018 08:41 AM LDL CHOLESTEROL-OUTSIDE LAB 135 11/10/2021 06:44 AM Lab Results Component Value Date/Time ALT - [facility] 24 04/25/2023 11:38 AM ALT - [facility] 38 (H) 06/05/2020 01:36 PM ALT-OUTSIDE LAB 22 03/15/2015 12:00 AM Hemoglobin AIC Results: Lab Results Component Value Date/Time HEMOGLOBIN A1C - [facility] 5.4 10/24/2020 03:07 PM HEMOGLOBIN A1C - [facility] 5.2 03/17/2017 10:49 AM documented in this encounter Plan of Treatment Upcoming Encounters Date Type Department Care Team (Late st Contact Info) Description 10/10/2023 1:00 PM EST Office Visit Sleep Disorders Ctr [facility] [address] [facility] [place] [phone] Ofe Toure DO [address] [place] [address] [place] [address] 10/28/2023 10:40 AM EDT Office Visit Rheumatology [address] [place] [address] Roberth Roy MD [address] [place] [address] [place] [address] 02/04/2024 1:50 PM EDT Office Visit Family Medicine [address] [place] [phone] Ernestina Swanson DO [address] [place] [address] [place] [address] 03/11/2024 1:15 PM EDT Office Visit Ophthalmology, [facility] [address] [place] [address] Timur Roque, [address] [place] [address] Health Maintenance Due Date Last Done Comments Alpha-1 Antitrypsin 1960 Zoster Vaccines (1 of 2) 1961 *BISPHONATE OR OTHER ACCEPTABLE MEDICATION NEEDED FOR OSTEOPOROSIS (REFER TO SMARTSET #1146) 03/03/2020 COVID-19 Vaccine (3 - Pfizer risk series) 05/15/2021 04/17/2021, 03/27/2021 Depression Screening 06/04/2022 06/04/2021, 01/01/20 18 Albumin/Creatinine Ratio 04/09/2023 04/09/2022 CKD PHOS USE SMARTSET 86938 04/09/2023 09/0 01/2022, 07/21/2014, 12/17/2012 GFR 02/23/2024 08/25/2023, 04/05, 02/24/2023, Additional history exists O2 ASSESSMENT COMPLETED IN PAST YEAR FOR COPD 07/04/2024 07/04/2023 CKD HGB USE SMARTSET 60157 08/25/202408/25, 04/25/2023, 04/25/2023, Additional history exists TSH 08/25/2024 08/25/2023, 0408/2022, 04/09/2022, Additional history exists DXA Scan 04/10/2025 04/10/2023, 04/05, 05/20/2017, Additional history exists COLONOSCOPY-EVERY 5 YRS AGES 18-100 06/20/2026 06/20/2021, 04/10/2021, 04/10/2021, Additional history exists DTaP,Tdap,and Td Vaccines (2 - Td or Tdap) 01/01/2028 12/31/2017 (Declined), 04/19/2010 Pneumococcal Vaccine: 65+ Years Completed 01/30/2016, 08/23/2014 VITAMIN D LEVEL ONCE IN A LIFETIME-USE SMARTSET# 22218 Completed 04/25/2023, 01/25/2022, 01/14/2019, Additional history exists [...] this encounter Medical Devices Implanted Type Area Frame Aligner Device Identifier Shelf Expiration Date Model / Serial / Lot Alloderm 2x4cm [id number] (8 Units) - [id number] Implanted:Qty : 8 on 05/25/2015 by Ambrose Mullen MD at [facility] Tissue - Human N/A: Esophagus LIFE CELL AQUILINO 01/01/2017 [id number] / / [id number] Mesh Pelvic Gynamesh Gpsl - [id number] Implanted:Qty : 1 on 06/01/2008 at [facility] Bilateral: Pelvis AICHA [employer] AICHA 08/04/2012 GPSL / / [id number] Clip Quick 2.8mm 230cm - [id number] Implanted:Qty : 3 on 04/10/2021 by Belinda Parikh MD at [facility] Colon [employer] 05/03/2022 [id number]. A / / documented as of this encounter Visit Diagnoses Diagnosis STEPHANIE (generalized anxiety disorder) Generalized anxiety disorder documented in this encounter Advance Directives Documents on File Type Date Recorded Patient Ticket Dispenser Changer Expl anation Advance Directives and Living Will 03/29/2008 Latest Code Status on File Code Status Date Activated Date Inactivated Comments Full Code 11/28/2021 3:33 PM 11/30/2021 3:14 PM Question Answer Comments Discussion of Advance Direct jeremiah occurred with: Not Discussed Does the patient have a Living Will? No Does the patient have Health Care Power of Dielectric Press Operator? No Code Status History Code Status Date Activated Date Inactivated Comments Full Code 05/25/2015 7:17 PM 05/27/2015 5:03 PM Thi s order reflects the patients wishes and were consensually agreed upon. Full Code 05/25/2015 1:12 PM 05/25/2015 7:17 PM Thi s order reflects the patients wishes and were consensually agreed upon. Full Code 06/01/2008 4:58 PM 06/02/2008 8:10 PM Care Teams Plater Barrel Relationship Specialty Start Date End Date Ernestina Swanson DO [address] [place] [address] [place] [phone] PCP - General Internal Medicine 06/11/23 documented as of this encounter
--- OUTSIDE RECORDS SUMMARY | 2023-09-30 23:23 | External Medical Summary | Summary of Care ---
Author Name Unknown Organization [facility] Address [address] [place] [address] Phone [phone] Care Team Providers Care Barnworker Groom Name Role Phone Sylvester Vines DO Primary Care Provider Reason for Visit * Reason Onset Date Comments Medication Refill 09/17/2023 Encounter Details Date Type Department Care Team (Late st Contact Info) Description 09/17/2023 Refill Family Medicine [address] [place] [phone] Sylvester Vines DO [address] [place] [address] [place] [phone] Allergies Active Allergy Reactions Criticality Noted Date [...] as of this encounter (statuses as of 09/18/2023) Medications Medication Sig Dispensed Refills Start Date [...] HCl 4 MG/0.1ML Nasal Liquid Administer 1 [place] into nostril. 0 3 Active Sennosides 8.6 [...] as of this encounter (statuses as of 09/18/2023) Active Problems Problem Noted Date Diagnosed Date [...] as of this encounter (statuses as of 09/18/2023) Resolved Problems Problem Noted Date Diagnosed Date [...] home patient encounter 02/29/2020 03/24/2023 Overview: Sees: [place] Arthritis (Dr Carias), Dr Matute, Alfred Caballero (spinal stim), Dr Ortiz [facility] ortho. 11/22 EGD [facility] -gastritis. -TTE normal EF. LAE/CARMELINA, mild MR, mild-mod MR. 06/23 TTE normal EF mild LVH Gr I garcia dys 04/23 Quantiferon WNL Sacroiliitis 08/19/2019 06/03/2021 Recurrent major depressive d isorder, in partial remission 06/04/2018 03/24/2023 Somatic symptom disorder 08/12/201708/2017 CSA (central sleep apnea) 06/12/2017 Overview: CPAP 7 cwp [facility] Hx of nonmelanoma skin cancer 06/04/2017 [...] as of this encounter (statuses as of 09/18/2023) Immunizations Name Administration Dates Next Due COVID-19 [...] encounter Miscellaneous Notes * Telephone Encounter - Bindu Inman CPhT - 09/18/2023 1:41 PM EST Called [facility] [place] and had them transfer script from [place] Pt calling to request lisinopril. Informed pt that RX is available at their pharmacy. Pt verbalizedunderstanding and stated they will check with their pharmacy regarding this medication. Thank you, Bindu Inman CPhT [facility] ([facility] ([facility]) 09/18/2023, 1:41 PM * Telephone Encounter - Sylvester Vines DO [...] the morning. * Telephone Encounter - Anila Mcginnis OSA - 09/17/2023 10:46 AM EST Did you pend patient's preferred pharmacy and medication before forwarding?yes Pharmacy: [id number] [facility] - [...] PM EST Office Visit Sleep Disorders Ctr [facility] [address] [facility] [place] [phone] Ofe Toure DO [address] [facility] [place] [address] 10/28/2023 10:40 AM EDT Office Visit Rheumatology [address] [place] [address] Roberth Roy MD [address] [place] [address] [place] [address] 02/04/2024 1:50 PM EDT Office Visit Family Medicine [address] [place] [phone] Sylvester Vines [address] [place] [address] 03/11/2024 1:15 PM EDT Office Visit Ophthalmology, [facility] [address] [place] [address] Timur Roque, [address] [place] [address] Health Maintenance Due Date Last Done Comments Alpha-1 Antitrypsin 1960 Zoster Vaccines (1 of 2) 1961 *BISPHONATE OR OTHER ACCEPTABLE MEDICATION NEEDED FOR OSTEOPOROSIS (REFER TO SMARTSET #1146) 03/03/2020 COVID-19 Vaccine (3 - Pfizer risk series) 05/15/2021 04/17/2021, 03/27/2021 Depression Screening 06/04/2022 06/04/2021, 01/01/20 18 Albumin/Creatinine Ratio 04/09/2023 04/09/2022 CKD PHOS USE SMARTSET 58567 04/09/2023 09/0 01/2022, 07/21/2014, 12/17/2012 GFR 02/23/2024 08/25/2023, 04/05, 02/24/2023, Additional history exists O2 ASSESSMENT COMPLETED IN PAST YEAR FOR COPD 07/04/2024 07/04/2023 CKD HGB USE SMARTSET 80586 08/25/202408/25, 04/25/2023, 04/25/2023, Additional history exists TSH 08/25/2024 08/25/2023, 0408/2022, 04/09/2022, Additional history exists DXA Scan 04/10/2025 04/10/2023, 04/05, 05/20/2017, Additional history exists COLONOSCOPY-EVERY 5 YRS AGES 18-100 06/20/2026 06/20/2021, 04/10/2021, 04/10/2021, Additional history exists DTaP,Tdap,and Td Vaccines (2 - Td or Tdap) 01/01/2028 12/31/2017 (Declined), 04/19/2010 Pneumococcal Vaccine: 65+ Years Completed 01/30/2016, 08/23/2014 VITAMIN D LEVEL ONCE IN A LIFETIME-USE SMARTSET# 41109 Completed 04/25/2023, 01/25/2022, 01/14/2019, Additional history exists [...] this encounter Medical Devices Implanted Type Area Sales And Marketing Engineer Device Identifier Shelf Expiration Date Model / Serial / Lot Alloderm 2x4cm [id number] (8 Units) - [id number] Implanted:Qty : 8 on 05/25/2015 by Ambrose Mullen MD at [facility] Tissue - Human N/A: Esophagus LIFE CELL AQUILINO 01/01/2017 [id number] / / [id number] Mesh Pelvic Gynamesh Gpsl - [id number] Implanted:Qty : 1 on 06/01/2008 at [facility] Bilateral: Pelvis AICHA & AICHA 08/04/2012 GPSL / / [id number] Clip Quick 2.8mm 230cm - [id number] Implanted:Qty : 3 on 04/10/2021 by Belinda Parikh MD at ENDOSCOPY [facility] Colon [employer] 05/03/2022 [id number]. A / / documented as of this encounter Advance Directives Documents on File Type Date Recorded Patient Auger Supervisor Expl anation Advance Directives and Living Will 03/29/2008 Latest Code Status on File Code Status Date Activated Date Inactivated Comments Full Code 11/28/2021 3:33 PM 11/30/2021 3:14 PM Question Answer Comments Discussion of Advance Direct jeremiah occurred with: Not Discussed Does the patient have a Living Will? No Does the patient have Health Care Power of Ui Architect? No Code Status History Code Status Date Activated Date Inactivated Comments Full Code 05/25/2015 7:17 PM 05/27/2015 5:03 PM Thi s order reflects the patients wishes and were consensually agreed upon. Full Code 05/25/2015 1:12 PM 05/25/2015 7:17 PM Thi s order reflects the patients wishes and were consensually agreed upon. Full Code 06/01/2008 4:58 PM 06/02/2008 8:10 PM Care Teams Barnworker Groom Relationship Specialty Start Date End Date Sylvester Vines DO [address] [place] [address] [place] [phone] PCP - General Internal Medicine 06/11/23 documented as of this encounter
--- OUTSIDE RECORDS SUMMARY | 2023-09-30 23:23 | External Medical Summary | Summary of Care ---
Author Name Unknown Organization [facility] Address [address] [place] [address] Phone [phone] Care Team Providers Care Fountain Roller Assembler Name Role Phone Sylvester Vines DO Primary Care Provider Reason for Visit * Reason Onset Date Comments Medication Refill 09/17/2023 Encounter Details Date Type Department Care Team (Late st Contact Info) Description 09/17/2023 Refill Family Medicine [address] [place] [phone] Sylvester Viens DO [address] [place] [address] [place] [phone] Allergies Active Allergy Reactions Criticality Noted Date [...] HCl 4 MG/0.1ML Nasal Liquid Administer 1 [place] into nostril. 0 3 Active Sennosides 8.6 [...] home patient encounter 02/29/2020 03/24/2023 Overview: Sees: [place] Arthritis (Dr Carias), Dr Matute, Alfred Caballero (spinal stim), Dr Ortiz [facility] ortho. 11/22 EGD [facility] -gastritis. -TTE normal EF. LAE/CARMELINA, mild MR, mild-mod MR. 06/23 TTE normal EF mild LVH Gr I garcia dys 04/23 Quantiferon WNL Sacroiliitis 08/19/2019 06/03/2021 Recurrent major depressive d isorder, in partial remission 06/04/2018 03/24/2023 Somatic symptom disorder 08/12/201708/2017 CSA (central sleep apnea) 06/12/2017 Overview: CPAP 7 cwp [facility] Hx of nonmelanoma skin cancer 06/04/2017 [...] Pharmacy: [id number] [address] [facility] Pending Prescriptions: Disp Refills Lisinopril 10 [...] [facility] [address] [place] [phone] Ofe Toure DO [address] [place] [address] 10/28/2023 10:40 AM EDT Office Visit Rheumatology [place] [phone] [facility] [place] [address] Roberth Roy MD [facility] [place] [address] 02/04/2024 1:50 PM EDT Office Visit Family Medicine [address] [phone] [place] [address] 03/11/2024 1:15 PM EDT Office Visit Ophthalmology, [facility] [address] [place] [address] Timur Roque DO [address] [place] [address] Health Maintenance Due Date Last Done Comments Alpha-1 Antitrypsin 1960 Zoster Vaccines (1 of 2) 1961 *BISPHONATE OR OTHER ACCEPTABLE MEDICATION NEEDED FOR OSTEOPOROSIS (REFER TO SMARTSET #1146) 03/03/2020 COVID-19 Vaccine (3 - Pfizer risk series) 05/15/2021 04/17/2021, 03/27/2021 Depression Screening 06/04/2022 06/04/2021, 01/01/20 Albumin/Creatinine Ratio 04/09/2023 04/09/2022 CKD PHOS USE SMARTSET 96566 04/09/2023 09/0 01/2022, 07/21/2014, 12/17/2012 GFR 02/23/2024 08/25/2023, 04/05, 02/24/2023, Additional history exists O2 ASSESSMENT COMPLETED IN PAST YEAR FOR COPD 07/04/2024 07/04/2023 CKD HGB USE SMARTSET 45039 08/25/202408/25, 04/25/2023, 04/25/2023, Additional history exists TSH 08/25/2024 08/25/2023, 11/02, 04/09/2022, Additional history exists DXA Scan 04/10/2025 04/10/2023, 04/05, 05/20/2017, Additional history exists COLONOSCOPY-EVERY 5 YRS AGES 18-100 06/20/2026 06/20/2021, 04/10/2021, 04/10/2021, Additional history exists DTaP,Tdap,and Td Vaccines (2 - Td or Tdap) 01/01/2028 12/31/2017 (Declined), 04/19/2010 Pneumococcal Vaccine: 65+ Years Completed 01/30/2016, 08/23/2014 VITAMIN D LEVEL ONCE IN A LIFETIME-USE SMARTSET# 60783 Completed 04/25/2023, 01/25/2022, 01/14/2019, Additional history exists [...] this encounter Medical Devices Implanted Type Area Clay Mine Cutting Machine Operator Device Identifier Shelf Expiration Date Model / Serial / Lot Alloderm 2x4cm [id number] (8 Units) - [id number] Implanted:Qty : 8 on 05/25/2015 by Ambrose Mullen MD at [facility] Tissue - Human N/A: Esophagus LIFE CELL AQUILINO 01/01/2017 [id number] / / [id number] Mesh Pelvic Gynamesh Gpsl - [id number] Implanted:Qty : 1 on 06/01/2008 at OR [facility] Bilateral: Pelvis AICHA & AICHA 08/04/2012 GPSL / / [id number] Clip Quick 2.8mm 230cm - [id number] Implanted:Qty : 3 on 04/10/2021 by Belinda Parikh MD at ENDOSCOPY [facility] Colon [employer] 05/03/2022 [id number]. A / / documented as of this encounter Advance Directives Documents on File Type Date Recorded Patient Customer Service Officer Expl anation Advance Directives and Living Will 03/29/2008 Latest Code Status on File Code Status Date Activated Date Inactivated Comments Full Code 11/28/2021 3:33 PM 11/30/2021 3:14 PM Question Answer Comments Discussion of Advance Direct jeremiah occurred with: Not Discussed Does the patient have a Living Will? No Does the patient have Health Care Power of Sprinkling System Irrigator? No Code Status History Code Status Date Activated Date Inactivated Comments Full Code 05/25/2015 7:17 PM 05/27/2015 5:03 PM Thi s order reflects the patients wishes and were consensually agreed upon. Full Code 05/25/2015 1:12 PM 05/25/2015 7:17 PM Thi s order reflects the patients wishes and were consensually agreed upon. Full Code 06/01/2008 4:58 PM 06/02/2008 8:10 PM Care Teams Fountain Roller Assembler Relationship Specialty Start Date End Date Sylvester Vines DO [address] [place] [address] [place] [id number] PCP - General Internal Medicine 06/11/23 documented as of this encounter
--- OUTSIDE RECORDS SUMMARY | 2023-09-30 23:23 | External Medical Summary | Summary of Care ---
Author Name Unknown Organization [facility] Address [address] [place] [address] Phone [phone] Care Team Providers Care Position Description Manager Name Role Phone Ernestina Swanson DO Primary Care Provider Reason for Visit * Reason Onset Date Comments Advice 09/08/2023 Encounter Details Date Type Department Care Team (Late st Contact Info) Description 09/08/2023 Telephone Ophthalmology, [facility] [address] [place] [address] Timur Roque DO [address] [place] [address] Advice Allergies Active Allergy Reactions Criticality Noted [...] as of this encounter (statuses as of 09/08/2023) Medications Medication Sig Dispensed Refills Start Date [...] any sleep 1 Each 0 06/19/2022 Active Additional Information Patient not taking.Reported on 08/21/2023 ProAir HFA 108 (90 Base) MCG/ACT Inhalation [...] HCl 4 MG/0.1ML Nasal Liquid Administer 1 [place] into nostril. 0 02/24/2023 Active Sennosides 8.6 [...] the morning. 30 Tablet 1 05/09/2023 Active Lisinopril 10 MG Oral Tablet (Prinivil) Take 1 Tablet by mouth in the morning. 30 Tablet 0 07/22/2023 Active LORazepam 0.5 MG Oral Tablet (Ativan)Indications :STEPHANIE (generalized anxiety disorder) Take 1 Tablet by mouth daily as needed for Agitation or Anxiety. No more than 1 tab in 24 hours 30 Tablet 0 08/01/2023 Active DULoxetine HCl 20 MG Oral Capsule Delayed Release Particles (duloxetine) Take 1 Capsule by mouth in the morning. 0 Active documented as of this encounter (statuses as of 09/08/2023) Active Problems Problem Noted Date Diagnosed Date [...] as of this encounter (statuses as of 09/08/2023) Resolved Problems Problem Noted Date Diagnosed Date [...] home patient encounter 02/29/2020 03/24/2023 Overview: Sees: [place] [facility]thritis (Dr Carias), Dr Matute, Alfred Caballero (spinal stim), Dr Ortiz [facility] ortho. 11/22 EGD [facility] -gastritis. -TTE normal EF. LAE/CARMELINA, mild MR, mild-mod MR. 06/23 TTE normal EF mild LVH Gr I garcia dys 04/23 Quantiferon WNL Sacroiliitis 08/19/2019 06/03/2021 Recurrent major depressive d isorder, in partial remission 06/04/2018 03/24/2023 Somatic symptom disorder 08/12/201708/2017 CSA (central sleep apnea) 06/12/2017 Overview: CPAP 7 cwp [facility] Hx of nonmelanoma skin cancer 06/04/2017 03/24/2023 [...] as of this encounter (statuses as of 09/08/2023) Immunizations Name Administration Dates Next Due COVID-19 mRNA, LNP-s, No Pre serve, 2-Dose Series (Vivastream) 04/17/2021,03/27/2021 Pneumococcal Conjugate Vacc, 13 Valent (Prevnar) [...] encounter Miscellaneous Notes * Telephone Encounter - Liseth Edward RN - 09/08/2023 11:10 AM EST Spoke with daughter to clarify questions. No further questions. Liseth Edward RN 09/08/2023 11:11 AM * Telephone Encounter - Ernestina Millard OSA - 09/08/2023 10:36 AM EST Russ Roque, Patient and daughter would we traveling from [facility] on Friday09/10/23 to see you. Patients daughter was just wondering how long after they see you would be able to do shots? She's just trying to plan due to travel please advise. Thank you, ARTHUR Luo documented in this encounter Plan of Treatment Upcoming Encounters Date Type Department Care Team (Late st Contact Info) Description 09/10/2023 12:45 PM EST Office Visit Ophthalmology, [facility] [address] [place] [address] Timur Roque, DO [address] [place] [address] 10/10/2023 1:00 PM EST Office Visit Sleep Disorders Ctr [facility] [address] [place] [phone] Ofe Toure DO [address] [place] [address] 10/28/2023 10:40 AM EDT Office Visit Rheumatology [place] [phone] [facility] [place] [address] Roberth Roy MD [address] [place] [address] [facility] [place] [address] 02/04/2024 1:50 PM EDT Office Visit Family Medicine [address] [place] [phone] Ernestina Swanson [address] [place] [address] Health Maintenance Due Date Last Done Comments Alpha-1 Antitrypsin 1960 Zoster Vaccines (1 of 2) 1961 *BISPHONATE OR OTHER ACCEPTABLE MEDICATION NEEDED FOR OSTEOPOROSIS (REFER TO SMARTSET #1146) 03/03/2020 COVID-19 Vaccine (3 - Pfizer risk series) 05/15/2021 04/17/2021, 03/27/2021 Depression Screening 06/04/2022 06/04/2021, 01/01/20 18 Albumin/Creatinine Ratio 04/09/2023 04/09/2022 CKD PHOS USE SMARTSET 72157 04/09/2023 09/0 01/2022, 07/21/2014, 12/17/2012 GFR 02/23/2024 08/25/2023, 04/05, 02/24/2023, Additional history exists O2 ASSESSMENT COMPLETED IN PAST YEAR FOR COPD 07/04/2024 07/04/2023 CKD HGB USE SMARTSET 24658 08/25/202408/25, 04/25/2023, 04/25/2023, Additional history exists TSH 08/25/2024 08/25/2023, 11/02, 04/09/2022, Additional history exists DXA Scan 04/10/2025 04/10/2023, 04/05, 05/20/2017, Additional history exists COLONOSCOPY-EVERY 5 YRS AGES 18-100 06/20/2026 06/20/2021, 04/10/2021, 04/10/2021, Additional history exists DTaP,Tdap,and Td Vaccines (2 - Td or Tdap) 01/01/2028 12/31/2017 (Declined), 04/19/2010 Pneumococcal Vaccine: 65+ Years Completed 01/30/2016, 08/23/2014 VITAMIN D LEVEL ONCE IN A LIFETIME-USE SMARTSET# 33020 Completed 04/25/2023, 01/25/2022, 01/14/2019, Additional history exists [...] this encounter Medical Devices Implanted Type Area Metal Dresser Device Identifier Shelf Expiration Date Model / Serial / Lot Alloderm 2x4cm [id number] (8 Units) - [id number] Implanted:Qty : 8 on 05/25/2015 by Ambrose Mullen MD at [place] [facility] Tissue - Human N/A: Esophagus [employer] 01/01/2017 [id number] / / [id number] Mesh Pelvic Gynamesh Gpsl - [id number] Implanted:Qty : 1 on 06/01/2008 at [place] [facility] Bilateral: Pelvis AICHA & AICHA 08/04/2012 GPSL / / [id number] Clip Quick 2.8mm 230cm - [id number] Implanted:Qty : 3 on 04/10/2021 by Belinda Parikh MD at ENDOSCOPY [facility] Colon [employer] 05/03/2022 [id number]. A / / documented as of this encounter Advance Directives Documents on File Type Date Recorded Patient Property Analyst Expl anation Advance Directives and Living Will 03/29/2008 Latest Code Status on File Code Status Date Activated Date Inactivated Comments Full Code 11/28/2021 3:33 PM 11/30/2021 3:14 PM Question Answer Comments Discussion of Advance Direct jeremiah occurred with: Not Discussed Does the patient have a Living Will? No Does the patient have Health Care Power of Substitute Crossing Guard? No Code Status History Code Status Date Activated Date Inactivated Comments Full Code 05/25/2015 7:17 PM 05/27/2015 5:03 PM Thi s order reflects the patients wishes and were consensually agreed upon. Full Code 05/25/2015 1:12 PM 05/25/2015 7:17 PM Thi s order reflects the patients wishes and were consensually agreed upon. Full Code 06/01/2008 4:58 PM 06/02/2008 8:10 PM Care Teams Position Description Manager Relationship Specialty Start Date End Date Ernestina Swanson DO [address] [place] [address] [place] [address] PCP - General Internal Medicine 06/11/23 documented as of this encounter
--- OUTSIDE RECORDS SUMMARY | 2023-09-30 23:23 | External Medical Summary | Summary of Care ---
Author Name Unknown Organization [facility] Address [address] [place] [address] Phone [phone] Care Team Providers Care Aquarium Specialist Name Role Phone Ernestina Swanson DO Primary Care Provider [phone] Reason for Visit * Reason Comments Follow Up 6 month f/u;blurred vision OD worse then OS since MELANIE Encounter Details Date Type Department Care Team (Late st Contact Info) Description 09/10/2023 12:45 PM EST Office Visit Ophthalmology, [facility] [address] [place] [address] Timur Roque DO [address] [place] [address] Intermediate stage nonexudative age-related macular degeneration of both eyes* Allergies Active Allergy Reactions Criticality Noted Date [...] HCl 4 MG/0.1ML Nasal Liquid Administer 1 [place] into nostril. 0 02/24/2023 Active Sennosides 8.6 [...] mass 11/29/2021 12/07/2021 Hx of actinic keratosis 08/29/2021/04/2022 Advanced directives, counseling/discussion 03/02/2021 03/26/2021 Overview: Yes, [...] home patient encounter 02/29/2020 03/24/2023 Overview: Sees: [place] Arthritis (Dr Carias), Dr Matute, Alfred Caballero (spinal stim), Dr Ortiz [facility] ortho. 11/22 EGD [facility] -gastritis. -TTE normal EF. LAE/CARMELINA, mild MR, mild-mod MR. 06/23 TTE normal EF mild LVH Gr I garcia dys 04/23 Quantiferon WNL Sacroiliitis 08/19/2019 06/03/2021 Recurrent major depressive d isorder, in partial remission 06/04/2018 03/24/2023 Somatic symptom disorder 08/12/201708/2017 CSA (central sleep apnea) 06/12/2017 Overview: CPAP 7 cwp C Hx of nonmelanoma skin cancer 06/04/2017 03/24/2023 [...] mRNA, LNP-s, No Pre serve, 2-Dose Series ([employer]) 04/17/2021,03/27/2021 Pneumococcal Conjugate Vacc, 13 Valent (Prevnar) [...] (15 years old or older) No 11/29/19 22 Cognitive Status Response Date of Assessm ent Because of a physical, menta l, or emotional condition, do you have serious difficulty concentrating, remembering, or making decisions? (5 years old or older) No 11/28/2021 documented as of this encounter Progress Notes * Timur Roque, - 09/10/2023 12:45 PM EST [facility] [place] Nursing notes reviewed. Eye vitals reviewed. Mood and Affect: normal HPI: Romina Jensen is a 82 year old female who presents for AMD. No other eye complaints. Denies significant pain. Base Eye Exam Visual Acuity (Snellen - Linear) Right Left Dist cc 20/30 -2 20/20/25 Tonometry (Tonopen, 1:04 PM) Right Left Pressure 17 17 Pupils Pupils Right PERRL Left PERRL Visual Bowman (Counting fingers) Right Left Full Full Extraocular Movement Right Left Full, Ortho Full, Ortho Neuro/Psych Oriented x3: Yes Mood/Affect: Normal Dilation Both eyes: 0.5% Proparacaine @ 1:00 PM Dilation #2 Both eyes: 1.0% Mydriacyl, 2.5% Phenylephrine @ 1:03 PM Dilation Comments Patient cautioned that effects of dilation may last 2-7 hours dependant upon individual reaction. It was discussed that driving while dilated is not recommended. EXTERNAL: The ocular adnexae are unremarkable. SLE: Lids/Lashes: wnl OU Conjunctiva/Sclera: quiet OU Cornea: clear OU Anterior Chamber: deep and quiet OU Iris: normal OU; no NVI OU Lens: PCIOL OU s/p YAG PC OU Dilated fundus exam OD: vitreous: PVD optic nerve: 0.4, no edema/pallor/NVD macula: central vitelliform lesion, drusen, RPE clumping vessels: wnl periphery: wnl, no RT/RD Dilated fundus exam OS: vitreous: PVD optic nerve: 0.35, no edema/pallor/NVD macula: drusen vessels: wnl periphery: wnl, no RT/RD OCT Interpretation: OD: ERM, drusen, sr deposit, +PVD--STABLE OS: drusen, no CME/SRFluid, +PVD--STABLE OCT-A Interpretation - 05/19/2023: OD: no CNV OS: no CNV A/P: 1. Intermediate Age-Related Macular Degeneration OU -no CNV OU -recommend AREDS2 MVI as directed and Amsler grid qday 2. Epiretinal Membrane OD - monitor 3. Posterior Vitreous Detachment OU -no RT/RD -advised to return to clinic if she should experience worsening or new floaters, flashes of light, a shadow in the periphery, or decrease in vision. 4. Pseudophakia OU -stable, small piece of PCO at times in visual axis F/u 6 months - dilate and OCT and OCTA OU Timur Roque DO 1023 CC: Goyo Deutsch, OD PCP: Ambrose Ribera MD documented in this encounter Nursing Notes * Rox Cook MED ASSIST - 09/10/2023 12:49 PM EST Romina Jensen is a 82 year old year old female who presents for intermedicate AMD OU. Last Office Visit: 05/19/2023 (in office), Visit date not found (telemedicine) Patient currently states 6 month f/u;blurred vision OD worse then OS since MELANIE, also reports dry itc Are you diabetic? No Do you drive? No OCT image(s) of both eyes acquired and filed/scanned into chart. documented in this encounter Plan of Treatment Upcoming Encounters Date Type Department Care Team (Late st Contact Info) Description 10/10/2023 1:00 PM EST Office Visit Sleep Disorders Ctr [facility] 132 [facility] [place] [phone] Ofe Toure DO 132 [facility] [place] [address] 10/28/2023 10:40 AM EDT Office Visit Rheumatology [place] [phone] [facility] [place] [address] Roberth Roy MD [address] [place] [address] [place] [address] 02/04/2024 1:50 PM EDT Office Visit Family Medicine [address] [place] [phone] Ernestina Swanson DO [address] [place] [address] [place] [address] 03/11/2024 1:15 PM EDT Office Visit Ophthalmology, [facility] [address] [place] [address] Timur Roque, [address] [place] [address] Health Maintenance Due Date Last Done Comments Alpha-1 Antitrypsin 1960 Zoster Vaccines (1 of 2) 1961 *BISPHONATE OR OTHER ACCEPTABLE MEDICATION NEEDED FOR OSTEOPOROSIS (REFER TO SMARTSET #1146) 03/03/2020 COVID-19 Vaccine (3 - Pfizer risk series) 05/15/2021 04/17/2021, 03/27/2021 Depression Screening 06/04/2022 06/04/2021, 01/01/20 18 Albumin/Creatinine Ratio 04/09/2023 04/09/2022 CKD PHOS USE SMARTSET 76125 04/09/2023 09/0 01/2022, 07/21/2014, 12/17/2012 GFR 02/23/2024 08/25/2023, 04/05, 02/24/2023, Additional history exists O2 ASSESSMENT COMPLETED IN PAST YEAR FOR COPD 07/04/2024 07/04/2023 CKD HGB USE SMARTSET 67073 08/25/202408/25, 04/25/2023, 04/25/2023, Additional history exists TSH 08/25/2024 08/25/2023, 11/02, 04/09/2022, Additional history exists DXA Scan 04/10/2025 04/10/2023, 04/05, 05/20/2017, Additional history exists COLONOSCOPY-EVERY 5 YRS AGES 18-100 06/20/2026 06/20/2021, 04/10/2021, 04/10/2021, Additional history exists DTaP,Tdap,and Td Vaccines (2 - Td or Tdap) 01/01/2028 12/31/2017 (Declined), 04/19/2010 Pneumococcal Vaccine: 65+ Years Completed 01/30/2016, 08/23/2014 VITAMIN D LEVEL ONCE IN A LIFETIME-USE SMARTSET# [id number] Completed 04/25/2023, 01/25/2022, 01/14/2019, Additional history exists [...] this encounter Medical Devices Implanted Type Area Um Nurse Device Identifier Shelf Expiration Date Model / Serial / Lot Alloderm 2x4cm [id number] (8 Units) - [id number] Implanted:Qty : 8 on 05/25/2015 by Ambrose Mullen MD at [facility] Tissue - Human N/A: Esophagus LIFE CELL AQUILINO 01/01/2017 [id number] / / [id number] Mesh Pelvic Gynamesh Gpsl - [id number] Implanted:Qty : 1 on 06/01/2008 at [facility] Bilateral: Pelvis A[employer]HA [employer] AICHA 08/04/2012 GPSL / / [id number] Clip Quick 2.8mm 230cm - [id number] Implanted:Qty : 3 on 04/10/2021 by Belinda Parikh MD at ENDOSCOPY [facility] Colon [employer] 05/03/2022 [id number]. A / / documented as of this encounter Visit Diagnoses Diagnosis Intermediate stage nonexudative age-related macular degeneration of both eyes- Primary documented in this encounter Advance Directives Documents on File Type Date Recorded Patient Reinsurance Claims Analyst Expl anation Advance Directives and Living Will 03/29/2008 Latest Code Status on File Code Status Date Activated Date Inactivated Comments Full Code 11/28/2021 3:33 PM 11/30/2021 3:14 PM Question Answer Comments Discussion of Advance Direct jeremiah occurred with: Not Discussed Does the patient have a Living Will? No Does the patient have Health Care Power of Chemistry Instructor? No Code Status History Code Status Date Activated Date Inactivated Comments Full Code 05/25/2015 7:17 PM 05/27/2015 5:03 PM Thi s order reflects the patients wishes and were consensually agreed upon. Full Code 05/25/2015 1:12 PM 05/25/2015 7:17 PM Thi s order reflects the patients wishes and were consensually agreed upon. Full Code 06/01/2008 4:58 PM 06/02/2008 8:10 PM Care Teams Aquarium Specialist Relationship Specialty Start Date End Date Ernestina Swanson DO [address] [place] [address] [place] [address] PCP - General Internal Medicine 06/11/23 documented as of this encounter
--- OUTSIDE RECORDS SUMMARY | 2023-09-30 23:24 | External Medical Summary | Summary of Care ---
Author Name Unknown Organization [facility] Address [address] [place] [address] Phone [phone] Care Team Providers Care Piano Tuner Name Role Phone Ernestina Swanson DO Primary Care Provider [phone] Encounter Details Date Type Department Care Team (Late st Contact Info) Description 09/01/2023 Orders Only Family Medicine [address] [place] [phone] Ernestina Swanson DO [address] [place] [address] [place] [address] Allergies Active Allergy Reactions Criticality Noted Date [...] as of this encounter (statuses as of 09/01/2023) Medications Medication Sig Dispensed Refills Start Date [...] HCl 4 MG/0.1ML Nasal Liquid Administer 1 [place] into nostril. 0 02/24/2023 Active Sennosides 8.6 [...] as of this encounter (statuses as of 09/01/2023) Active Problems Problem Noted Date Diagnosed Date [...] as of this encounter (statuses as of 09/01/2023) Resolved Problems Problem Noted Date Diagnosed Date [...] home patient encounter 02/29/2020 03/24/2023 Overview: Sees: [place] [facility] (Dr Carias), Dr Matute, Alfred Caballero (spinal stim), Dr Ortiz [facility] ortho. 11/22 EGD [facility] -gastritis. -TTE normal EF. LAE/CARMELINA, mild MR, [...] as of this encounter (statuses as of 09/01/2023) Immunizations Name Administration Dates Next Due COVID-19 [...] No 11/28/2021 documented as of this encounter Plan of Treatment Upcoming Encounters Date Type Department Care Team (Late st Contact Info) Description 09/16/2023 8:15 AM EST Office Visit Ophthalmology, [facility] [address] [place] [address] Timur Roque DO [address] [place] [address] 10/10/2023 1:00 PM EST Office Visit Sleep Disorders Ctr [facility] [address] [place] [phone] Ofe Toure DO [address] [place] [address] 10/28/2023 10:40 AM EDT Office Visit Rheumatology [address] [place] [address] Roberth Roy MD [address] [place] [address] [place] [address] 02/04/2024 1:50 PM EDT Office Visit Family Medicine [address] [place] [phone] Ernestina Swanson [address] [place] [address] Health Maintenance Due Date Last Done Comments Alpha-1 Antitrypsin 1960 Zoster Vaccines (1 of 2) 1961 *BISPHONATE OR OTHER ACCEPTABLE MEDICATION NEEDED FOR OSTEOPOROSIS (REFER TO SMARTSET #1146) 03/03/2020 COVID-19 Vaccine (3 - Pfizer risk series) 05/15/2021 04/17/2021, 03/27/2021 Depression Screening 06/04/2022 06/04/2021, 01/01/20 18 Albumin/Creatinine Ratio 04/09/2023 04/09/2022 CKD PHOS USE SMARTSET 56447 04/09/2023 09/0 01/2022, 07/21/2014, 12/17/2012 GFR 10/24/2023 08/25/2023, 04/05, 02/24/2023, Additional history exists TSH 11/13/2023 08/25/2023, 11/02, 04/09/2022, Additional history exists CKD HGB USE SMARTSET 73047 04/25/202408/25, 04/25/2023, 04/25/2023, Additional history exists O2 ASSESSMENT COMPLETED IN PAST YEAR FOR COPD 07/04/2024 07/04/2023 DXA Scan 04/10/2025 04/10/2023, 04/05, 05/20/2017, Additional history exists COLONOSCOPY-EVERY 5 YRS AGES 18-100 06/20/2026 06/20/2021, 04/10/2021, 04/10/2021, Additional history exists DTaP,Tdap,and Td Vaccines (2 - Td or Tdap) 01/01/2028 12/31/2017 (Declined), 04/19/2010 Pneumococcal Vaccine: 65+ Years Completed 01/30/2016, 08/23/2014 VITAMIN D LEVEL ONCE IN A LIFETIME-USE SMARTSET# 68984 Completed 04/25/2023, 01/25/2022, 01/14/2019, Additional history exists [...] this encounter Medical Devices Implanted Type Area Quality Manager Device Identifier Shelf Expiration Date Model / Serial / Lot Alloderm 2x4cm [id number] (8 Units) - [id number] Implanted:Qty : 8 on 05/25/2015 by Ambrose Mullen MD at [place] [facility] Tissue - Human N/A: Esophagus LIFE CELL AQUILINO 01/01/2017 [id number] / / [id number] Mesh Pelvic Gynamesh Gpsl - [id number] Implanted:Qty : 1 on 06/01/2008 at [place] [facility] [place] Bilateral: Pelvis AICHA & AICHA 08/04/2012 GPSL / / [id number] Clip Quick 2.8mm 230cm - [id number] Implanted:Qty : 3 on 04/10/2021 by Belinda Parikh MD at [facility]COPY [facility] Colon [employer] 05/03/2022 [id number]. A / / documented as of this encounter Procedures Procedure Name Priority Date/Time Associated Diagnosis Comments CHEMISTRY-OUTSIDE Routine 08/25/2023 TSH Routine 08/25/2023 documented in this encounter Results * TSH (08/25/2023) TSH - OUTSIDE LAB 1.23 0.47 - 4.68 UIU/ML OUTSIDE LAB (SEE SCANNED REPORT) Blood Venous blood specimen / Unknown 08/25/2023 History Per Patient LAB BLOOD ORDERABLES OUTSIDE LAB (SEE SCANNED REPORT) * CHEMISTRY-OUTSIDE (08/25/2023) Not all results display below - see scan for full detail OUTSIDE LAB (SEE SCANNED REPORT) Comment:SCAN INCLUDES - CBCD , CMP, TSH CREATININE-OUTSID E LAB 0.9 0.6 - 1.0 MG/DL OUTSIDE LAB (SEE SCANNED REPORT) EGFR-OUTSIDE LAB >60.00 ML/MIN OUT SIDE LAB (SEE SCANNED REPORT) POTASSIUM-OUTSIDE LAB 4.2 3.5 - 5.1 MMOL/L OUTSIDE LAB (SEE SCANNED REPORT) GLUCOSE-OUTSIDE LAB 81 70 - 99 MG/DL OUTSIDE LAB (SEE SCANNED REPORT) HOURS FASTING OUTSID E LAB (SEE SCANNED REPORT) TRIGLYCERIDES-OUT SIDE LAB OUTSIDE LAB (SEE SCANNED REPORT) CHOLESTEROL-OUTSI DE LAB OUTSIDE LAB (SEE SCANNED REPORT) HDL-OUTSIDE LAB OUTS [place] LAB (SEE SCANNED REPORT) CHOL/HDL RATIO-OUTSIDE LAB OUTSIDE LA B (SEE SCANNED REPORT) LDL (CALCULATED)-OUTS [place] LAB OUTSIDE LAB (SEE SCANNED REPORT) LDL (DIRECT MEASURE)-OUTSIDE LAB OUTSIDE LAB (SEE SCANNED REPORT) HEMOGLOBIN, I8Z-XTHRPST LAB OUTSIDE LAB (SEE SCANNED REPORT) PHOSPHORUS-OUTSID E LAB OUTSIDE LAB (SEE SCANNED REPORT) PTH-OUTSIDE LAB OUTS [place] LAB (SEE SCANNED REPORT) MICROALBUMIN RATIO-OUTSIDE LAB OUTSIDE LA B (SEE SCANNED REPORT) PROTEIN, UA-OUTSIDE LAB OUTSIDE LAB (SEE SCANNED REPORT) HEMOGLOBIN-OUTSID E LAB 12.2 12.0 - 16.0 G/DL OUTSIDE LAB (SEE SCANNED REPORT) 08/25/2023 History Per Patient LABORATORY OUTSIDE LAB (SEE SCANNED REPORT) documented in this encounter Advance Directives Documents on File Type Date Recorded 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 No Does the patient have Health Care Power of Director Of Medical Review? No Code Status History Code Status Date Activated Date Inactivated Comments Full Code 05/25/2015 7:17 PM 05/27/2015 5:03 PM Thi s order reflects the patients wishes and were consensually agreed upon. Full Code 05/25/2015 1:12 PM 05/25/2015 7:17 PM Thi s order reflects the patients wishes and were consensually agreed upon. Full Code 06/01/2008 4:58 PM 06/02/2008 8:10 PM Care Teams Piano Tuner Relationship Specialty Start Date End Date Ernestina Swanson DO [address] [place] [address] [place] [phone] PCP - General Internal Medicine 06/11/23 documented as of this encounter
--- OUTSIDE RECORDS SUMMARY | 2023-09-30 23:24 | External Medical Summary | Summary of Care ---
Author Name Unknown Organization [facility] Address [address] [place] [address] Phone [phone] Care Team Providers Care Certified Indoor Environmentalist Name Role Phone Ernestina Swanson DO Primary Care Provider [phone] Reason for Visit * Reason Onset Date Comments Advice 09/08/2023 Encounter Details Date Type Department Care Team (Late st Contact Info) Description 09/08/2023 Telephone Ophthalmology, [facility] [address] [place] [address] Timur Roque DO [address] [place] [address] Advice Allergies Active Allergy Reactions Criticality Noted [...] HCl 4 MG/0.1ML Nasal Liquid Administer 1 [place] into nostril. 0 02/24/2023 Active Sennosides 8.6 [...] home patient encounter 02/29/2020 03/24/2023 Overview: Sees: [place] [facility] (Dr Carias), Dr Matute, Alfred Caballero (spinal stim), Dr Ortiz [facility] ortho. 11/22 EGD [facility] -gastritis. -TTE normal EF. LAE/CARMELINA, mild [...] mRNA, LNP-s, No Pre serve, 2-Dose Series ([employer]) 04/17/2021,03/27/2021 Pneumococcal Conjugate Vacc, 13 Valent (Prevnar) [...] encounter Miscellaneous Notes * Telephone Encounter - Ernestina Millard OSA - 09/08/2023 10:36 AM EST Russ Roque, Patient and daughter would we traveling from [facility] on Friday09/10/23 to see you. Patients daughter was just wondering how long after they see you would be able to do shots? She's just trying to plan due to travel please advise. Thank you, ARTHUR Luo documented in this encounter Plan of Treatment Upcoming Encounters Date Type Department Care Team (Late st Contact Info) Description 09/10/2023 12:45 PM EST Office Visit Ophthalmology, [facility] [address] [place] [address] Timur Roque, DO [address] [place] [phone] 10/10/2023 1:00 PM EST Office Visit Sleep Disorders Ctr [facility] [address] [place] [phone] Ofe Toure, DO [address] [place] [address] 10/28/2023 10:40 AM EDT Office Visit Rheumatology [place] [phone] [employer] [place], [place] [address] Roberth Roy MD [facility] [employer] [place] [address] 02/04/2024 1:50 PM EDT Office Visit Family Medicine [address] [place] [phone] Ernestina Swanson[address] [place] [address] Health Maintenance Due Date Last Done Comments Alpha-1 Antitrypsin 1960 Zoster Vaccines (1 of 2) 1961 *BISPHONATE OR OTHER ACCEPTABLE MEDICATION NEEDED FOR OSTEOPOROSIS (REFER TO SMARTSET #1146) 03/03/2020 COVID-19 Vaccine (3 - Pfizer risk series) 05/15/2021 04/17/2021, 03/27/2021 Depression Screening 06/04/2022 06/04/2021, 01/01/20 18 Albumin/Creatinine Ratio 04/09/2023 04/09/2022 CKD PHOS USE SMARTSET 61314 04/09/2023 09/0 01/2022, 07/21/2014, 12/17/2012 GFR 02/23/2024 08/25/2023, 04/05, 02/24/2023, Additional history exists O2 ASSESSMENT COMPLETED IN PAST YEAR FOR COPD 07/04/2024 07/04/2023 CKD HGB USE SMARTSET 50445 08/25/202408/25, 04/25/2023, 04/25/2023, Additional history exists TSH 08/25/2024 08/25/2023, 11/02, 04/09/2022, Additional history exists DXA Scan 04/10/2025 04/10/2023, 04/05, 05/20/2017, Additional history exists COLONOSCOPY-EVERY 5 YRS AGES 18-100 06/20/2026 06/20/2021, 04/10/2021, 04/10/2021, Additional history exists DTaP,Tdap,and Td Vaccines (2 - Td or Tdap) 01/01/2028 12/31/2017 (Declined), 04/19/2010 Pneumococcal Vaccine: 65+ Years Completed 01/30/2016, 08/23/2014 VITAMIN D LEVEL ONCE IN A LIFETIME-USE SMARTSET# 75313 Completed 04/25/2023, 01/25/2022, 01/14/2019, Additional history exists [...] this encounter Medical Devices Implanted Type Area Wafer Production Lead Worker Device Identifier Shelf Expiration Date Model / Serial / Lot Alloderm 2x4cm [id number] (8 Units) - [id number] Implanted:Qty : 8 on 05/25/2015 by Ambrose Mullen MD at [place] [facility] Tissue - Human N/A: Esophagus LIFE CELL AQUILINO 01/01/2017 [id number] / / [id number] Mesh Pelvic Gynamesh Gpsl - [id number] Implanted:Qty : 1 on 06/01/2008 at [facility] Bilateral: Pelvis AICHA & AICHA 08/04/2012 GPSL / / [id number] Clip Quick 2.8mm 230cm - [id number] Implanted:Qty : 3 on 04/10/2021 by Belinda Parikh MD at ENDOSCOPY [facility] Colon [employer] 05/03/2022 [id number]-[id number]. A / / documented as of this encounter Advance Directives Documents on File Type Date Recorded Patient Distribution Designer Expl anation Advance Directives and Living Will 03/29/2008 Latest Code Status on File Code Status Date Activated Date Inactivated Comments Full Code 11/28/2021 3:33 PM 11/30/2021 3:14 PM Question Answer Comments Discussion of Advance Direct jeremiah occurred with: Not Discussed Does the patient have a Living Will? No Does the patient have Health Care Power of Guest Services? No Code Status History Code Status Date Activated Date Inactivated Comments Full Code 05/25/2015 7:17 PM 05/27/2015 5:03 PM Thi s order reflects the patients wishes and were consensually agreed upon. Full Code 05/25/2015 1:12 PM 05/25/2015 7:17 PM Thi s order reflects the patients wishes and were consensually agreed upon. Full Code 06/01/2008 4:58 PM 06/02/2008 8:10 PM Care Teams Certified Indoor Environmentalist Relationship Specialty Start Date End Date Ernestina Swanson DO [address] [place] [address] [place] [phone] PCP - General Internal Medicine 06/11/23 documented as of this encounter
--- OUTSIDE RECORDS SUMMARY | 2023-09-30 23:24 | External Medical Summary | Summary of Care ---
Author Name Unknown Organization [facility] Address [address] [place] [address] Phone [phone] Care Team Providers Care Handbag Framer Name Role Phone Ernestina Swanson DO Primary Care Provider Reason for Visit * Reason Onset Date Comments Advice 06/09/2023 Encounter Details Date Type Department Care Team (Late st Contact Info) Description 06/09/2023 Telephone Family Practice [facility] [address] [place] [phone] Ambrose Ribera MD [address] [place] [address] Advice Allergies Active Allergy Reactions Criticality Noted [...] as of this encounter (statuses as of 08/19/2023) Medications Medication Sig Dispensed Refills Start Date [...] for itching as needed. 60 Tablet 2 2 Active oxygen IN GASIndications:Noct urnal hypoxemia,Chronic diastolic heart failure (HCC),ARTHUR (obstructive sleep apnea) 1 LPM via nasal cannula with all and any sleep 1 Each 0 2 Active Additional Information Patient taking differently: 2 L/min(Oxygen), 4 LPM via nasal cannula with all and any sleep, 2 LPM during the day as needed, Reported on 03/10/2023 ProAir HFA 108 (90 Base) MCG/ACT Inhalation [...] HCl 4 MG/0.1ML Nasal Liquid Administer 1 [place] into nostril. 0 3 Active Sennosides 8.6 MG Oral Tablet daily. 0 3 Active Cephalexin 500 MG Oral Capsule (Keflex) 1 Capsule. 0 3 Active Botox 100 UNIT Injection [...] the morning. 30 Tablet 1 3 Active Citalopram Hydrobromide 20 MG Oral Tablet (CeleXA) Take 1 Tablet by mouth in the morning. 90 Tablet 0 3 Active LORazepam 0.5 MG Oral Tablet (Ativan)Indications :STEPHANIE (generalized anxiety disorder) Take 1 Tablet by mouth daily as needed for Agitation or Anxiety. No more than 1 tab in 24 hours 30 Tablet 0 3 06/25/20 23 Discontinu ed(Refill) documented as of this encounter (statuses as of 08/19/2023) Active Problems Problem Noted Date Diagnosed Date [...] as of this encounter (statuses as of 08/19/2023) Resolved Problems Problem Noted Date Diagnosed Date Resolved Date Leg wound, right, initial encounter 01/28/2023 03/24/2023 History of 2019 novel kunz virus disease (COVID-19) 11/12/2022 03/24/2023 COPD, group A, by GOLD 2017 classification 09/11/2022 03/20/2023 Overview: Per COPD GOLD Classification Spinal cord stimulator status 02/12/2022 03/24/2023 Colonic mass 11/29/2021 12/07/2021 Hx of actinic keratosis 08/29/2021 03/04/2022 Advanced directives, counseling/discussion 03/02/2021 03/26/2021 Overview: Yes, [...] home patient encounter 02/29/2020 03/24/2023 Overview: Sees: [place] [facility] (Dr Carias), Dr Matute, Alfred Caballero [...] BCC central forehead 2016, SCC left hand 2015 Nocturnal hypoxemia 01/18/2017 03/24/20 23 Antonia's thyroiditis [...] as of this encounter (statuses as of 08/19/2023) Immunizations Name Administration Dates Next Due COVID-19 mRNA, LNP-s, No Pre serve, 2-Dose Series ([employer]) 04/17/2021,03/27/2021 Pneumococcal Conjugate Vacc, 13 Valent (Prevnar) [...] encounter Miscellaneous Notes * Telephone Encounter - Ambrose Ribera MD - 06/10/2023 2:10 PM EST Per chart message yesterday, patient no longer wishes to see me and is looking for a new PCP. * Telephone Encounter - Sujey Manzo LPN - 06/10/2023 9:17 AM EST Called pt, states she is taking gaviscon and Carafate, Pepcid in addition to dicyclomine. Pt has had no relief to heartburn and pain. Pt is stating "she is at the end of her rope" Pt is asking what she should do Please advise * Telephone Encounter - Jak Hussein OSA - 06/09/2023 9:42 AM EST Pt is seeking advice on continuous heart burn and stomach pain. Nothing she takes seems to help. She has appt with Endoscopy later in the month. Pt is seeking advice before making appt with PCP documented in this encounter Plan of Treatment Upcoming Encounters Date Type Department Care Team (Late st Contact Info) Description 08/21/2023 1:40 PM EST Telemedicine Family Medicine [address] [phone] Gurwinder Sherwood MD [address] [place] [address] [place] [address] 08/25/2023 3:40 PM EST Telemedicine Pulmonary Medicine, [facility] [place] [address] Gerard Ramos MD [address] [place] [address] 10/10/2023 1:00 PM EST Office Visit Sleep Disorders Ctr [facility] [address] [facility] [place] [phone] Ofe Toure, DO [address] [place] [address] 10/28/2023 10:40 AM EDT Office Visit Rheumatology [address] [place] [address] Roberth Roy MD [address] [place] [address] [place] [address] 11/18/2023 2:00 PM EDT Office Visit Ophthalmology, [facility] [address] [place] [address] Timur Roque, DO [address] [place] [address] 02/04/2024 1:50 PM EDT Office Visit Family Medicine [address] [place] [phone] Ernestina Swanson [address] [place] [address] Health Maintenance Due Date Last Done Comments Alpha-1 Antitrypsin 1960 Zoster Vaccines (1 of 2) 1961 *BISPHONATE OR OTHER ACCEPTABLE MEDICATION NEEDED FOR OSTEOPOROSIS (REFER TO SMARTSET #1146) 03/03/2020 COVID-19 Vaccine (3 - Pfizer risk series) 05/15/2021 04/17/2021, 03/27/2021 Depression Screening 06/04/2022 06/04/2021, 01/01/20 18 Albumin/Creatinine Ratio 04/09/2023 04/09/2022 CKD PHOS USE SMARTSET 23111 04/09/2023 090 01/2022, 07/21/2014, 12/17/2012 GFR 10/24/2023 04/25/2023, 02/02, 02/24/2023, Additional history exists TSH 11/13/2023 11/12/2022, 0 01/2022, 01/05/2021, Additional history exists CKD HGB USE SMARTSET 37873 04/25/202404/25, 04/25/2023, 03/19/2023, Additional history exists O2 ASSESSMENT COMPLETED IN PAST YEAR FOR COPD 07/04/2024 07/04/2023 DXA Scan 04/10/2025 04/10/2023, 04/05, 05/20/2017, Additional history exists COLONOSCOPY-EVERY 5 YRS AGES 18-100 06/20/2026 06/20/2021, 04/10/2021, 04/10/2021, Additional history exists DTaP,Tdap,and Td Vaccines (2 - Td or Tdap) 01/01/2028 12/31/2017 (Declined), 04/19/2010 Pneumococcal Vaccine: 65+ Years Completed 01/30/2016, 08/23/2014 VITAMIN D LEVEL ONCE IN A LIFETIME-USE SMARTSET# 93861 Completed 04/25/2023, 01/25/2022, 01/14/2019, Additional history exists [...] this encounter Medical Devices Implanted Type Area Rn Home Health Device Identifier Shelf Expiration Date Model / Serial / Lot Alloderm 2x4cm [id number] (8 Units) - [id number] Implanted:Qty : 8 on 05/25/2015 by Ambrose Mullen MD at [facility] Tissue - Human N/A: Esophagus LIFE CELL AQUILINO 01/01/2017 [id number] / / [id number] Mesh Pelvic Gynamesh Gpsl - [id number] Implanted:Qty : 1 on 06/01/2008 at [facility] Bilateral: Pelvis A[employer]HA [employer] AICHA 08/04/2012 GPSL / / [id number] Clip Quick 2.8mm 230cm - [id number] Implanted:Qty : 3 on 04/10/2021 by Belinda Parikh MD at ENDOSCOPY [facility] Colon [employer] 05/03/2022 HX-202UR. A / / documented as of this encounter Advance Directives Documents on File Type Date Recorded Patient Spot Facer Expl anation Advance Directives and Living Will 03/29/2008 Latest Code Status on File Code Status Date Activated Date Inactivated Comments Full Code 11/28/2021 3:33 PM 11/30/2021 3:14 PM Question Answer Comments Discussion of Advance Direct jeremiah occurred with: Not Discussed Does the patient have a Living Will? No Does the patient have Health Care Power of Federal District Law Clerk? No Code Status History Code Status Date Activated Date Inactivated Comments Full Code 05/25/2015 7:17 PM 05/27/2015 5:03 PM Thi s order reflects the patients wishes and were consensually agreed upon. Full Code 05/25/2015 1:12 PM 05/25/2015 7:17 PM Thi s order reflects the patients wishes and were consensually agreed upon. Full Code 06/01/2008 4:58 PM 06/02/2008 8:10 PM Care Teams Handbag Framer Relationship Specialty Start Date End Date Ernestina Swanson DO [address] [place] [address] [place] [address] PCP - General Internal Medicine 06/11/23 documented as of this encounter
--- OUTSIDE RECORDS SUMMARY | 2023-09-30 23:24 | External Medical Summary | Summary of Care ---
Author Name Unknown Organization [facility] Address [address] [place] [address] Phone [phone] Care Team Providers Care Forest Fire Management Officer Name Role Phone Ernestina Swanson DO Primary Care Provider [phone] Encounter Details Date Type Department Care Team (Late st Contact Info) Description 08/25/2023 Orders Only PATIENT PORTAL DO NOT DELETE THIS DEPT USED BY [place] [phone] Allergies Active Allergy Reactions Criticality Noted Date [...] as of this encounter (statuses as of 08/25/2023) Medications Medication Sig Dispensed Refills Start Date [...] HCl 4 MG/0.1ML Nasal Liquid Administer 1 [place] into nostril. 0 02/24/2023 Active Sennosides 8.6 [...] as of this encounter (statuses as of 08/25/2023) Active Problems Problem Noted Date Diagnosed Date [...] as of this encounter (statuses as of 08/25/2023) Resolved Problems Problem Noted Date Diagnosed Date [...] home patient encounter 02/29/2020 03/24/2023 Overview: Sees: [place] [facility] (Dr Carias), Dr Matute, Alfred Caballero (spinal stim), Dr Ortiz [facility] ortho. 11/22 EGD [facility] -gastritis. -TTE normal EF. LAE/CARMELINA, mild MR, mild-mod MR. 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 08/22, BCC left medial cheek 2017, BCC right upper lip 2017, BCC central forehead 2017, SCC left hand 2016 Nocturnal hypoxemia 01/18/2017 [...] as of this encounter (statuses as of 08/25/2023) Immunizations Name Administration Dates Next Due COVID-19 mRNA, LNP-s, No Pre serve, 2-Dose Series (Meal Ticket) 04/17/2021,03/27/2021 Pneumococcal Conjugate Vacc, 13 Valent (Prevnar) [...] Care Team (Late st Contact Info) Description 08/25/2023 3:40 PM EST Telemedicine Pulmonary Medicine, [facility] [address] [place] [address] Gerard Ramos MD [address] [place] [address] 09/16/2023 8:15 AM EST Office Visit Ophthalmology, [facility] [address] [place] [address] Timur Roque DO [address] [place] [address] 10/10/2023 1:00 PM EST Office Visit Sleep Disorders Ctr [facility] [address] [place] [id number] Ofe Toure [address] [place] [id number] 10/28/2023 10:40 AM EDT Office Visit Rheumatology [address] [place] [address] Roberth Roy MD [address] [place] [address] [place] [address] 02/04/2024 1:50 PM EDT Office Visit Family Medicine [address] [place] [phone] Swanson, Ernestina Roper[address] [place] [address] Health Maintenance Due Date Last Done Comments Alpha-1 Antitrypsin 1960 Zoster Vaccines (1 of 2) 1961 *BISPHONATE OR OTHER ACCEPTABLE MEDICATION NEEDED FOR OSTEOPOROSIS (REFER TO SMARTSET #1146) 03/03/2020 COVID-19 Vaccine (3 - Pfizer risk series) 05/15/2021 04/17/2021, 03/27/2021 Depression Screening 06/04/2022 06/04/2021, 01/01/20 18 Albumin/Creatinine Ratio 04/09/2023 04/09/2022 CKD PHOS USE SMARTSET 82091 04/09/2023 090 01/2022, 07/21/2014, 12/17/2012 GFR 10/24/2023 04/25/2023, 02/02, 02/24/2023, Additional history exists TSH 11/13/2023 11/12/2022, 0 01/2022, 01/05/2021, Additional history exists CKD HGB USE SMARTSET 86731 04/25/202404/25, 04/25/2023, 03/19/2023, Additional history exists O2 [...] D LEVEL ONCE IN A LIFETIME-USE SMARTSET# 97112 Completed 04/25/2023, 01/25/2022, 01/14/2019, Additional history exists [...] this encounter Medical Devices Implanted Type Area Apple Press Operator Device Identifier Shelf Expiration Date Model / Serial / Lot Alloderm 2x4cm [id number] (8 Units) - [id number] Implanted:Qty : 8 on 05/25/2015 by Ambrose Mullen MD at OR [facility] [place] Tissue - Human N/A: Esophagus [employer] 01/01/2017 [id number] / / [id number] Mesh Pelvic Gynamesh Gpsl - [id number] Implanted:Qty : 1 on 06/01/2008 at OR [facility] [place] Bilateral: Pelvis [employer] 08/04/2012 GPSL / / [id number] Clip Quick 2.8mm 230cm - [id number] Implanted:Qty : 3 on 04/10/2021 by Belinda Parikh MD at ENDOSCOPY [facility] [employer] 05/03/2022 [id number] / / documented as of this encounter Advance Directives Documents on File Type Date Recorded Patient Interactive Marketing Strategist Expl anation Advance Directives and Living Will 03/29/2008 Latest Code Status on File Code Status Date Activated Date Inactivated Comments Full Code 11/28/2021 3:33 PM 11/30/2021 3:14 PM Question Answer Comments Discussion of Advance Direct jeremiah occurred with: Not Discussed Does the patient have a Living Will? No Does the patient have Health Care Power of Fish Hatchery Laborer? No Code Status History Code Status Date Activated Date Inactivated Comments Full Code 05/25/2015 7:17 PM 05/27/2015 5:03 PM Thi s order reflects the patients wishes and were consensually agreed upon. Full Code 05/25/2015 1:12 PM 05/25/2015 7:17 PM Thi s order reflects the patients wishes and were consensually agreed upon. Full Code 06/01/2008 4:58 PM 06/02/2008 8:10 PM Care Teams Forest Fire Management Officer Relationship Specialty Start Date End Date Ernestina Swanson DO [address] [place] [address] [place] [address] PCP - General Internal Medicine 06/11/23 documented as of this encounter
--- OUTSIDE RECORDS SUMMARY | 2023-09-30 23:24 | External Medical Summary | Summary of Care ---
Author Name Unknown Organization [facility] Address [address] [place] [address] Phone [phone] Care Team Providers Care Applications Processor Name Role Phone Ernestina Swanson DO Primary Care Provider Reason for Visit * Reason Onset Date Comments Hospital Follow-Up 08/21/2023 * Precert (Routine) - Canceled Specialty Diagnoses / Procedures Referred By Elizabeth t Referred To Contact Radiology Diagnoses Chest pain Procedures CHEST CT W/ AND W/O IV CONTRAST Janet Cabrera PA-C [address] [place] [address] [place] [id number] Referral ID Status Reason Start Date Expiration Date V isits Requested Visits Authorized [id number] Canceled 1 Encounter Details Date Type Department Care Team (Late st Contact Info) Description 08/21/2023 1:40 PM EST Telemedicine Family Medicine [address] [place] [phone] Gurwinder Sherwood MD [address] [place] [address] [place] [id number] Current severe episode of major depressive disorder without psychotic features without prior episode (HCC)*; Anxiety; Hospital discharge follow-up Allergies Active Allergy Reactions Criticality Noted Date [...] as of this encounter (statuses as of 08/21/2023) Medications Medication Sig Dispensed Refills Start Date [...] Each 0 2 Active Additional Information Patient not taking.Reported on [...] HCl 4 MG/0.1ML Nasal Liquid Administer 1 [place] into nostril. 0 3 Active Sennosides 8.6 [...] the morning. 30 Tablet 1 3 Active Lisinopril 10 MG Oral Tablet (Prinivil) Take 1 Tablet by mouth in the morning. 30 Tablet 0 3 Active LORazepam 0.5 MG Oral Tablet (Ativan)Indications :STEPHANIE (generalized anxiety disorder) Take 1 Tablet by mouth daily as needed for Agitation or Anxiety. No more than 1 tab in 24 hours 30 Tablet 0 3 Active Citalopram Hydrobromide 20 MG Oral Tablet (CeleXA) Take 1 Tablet by mouth in the morning. 90 Tablet 0 3 08/21/19 24 Discontinu ed(Medicat ion/Dose Changed) documented as of this encounter (statuses as of 08/21/2023) Active Problems Problem Noted Date Diagnosed Date [...] as of this encounter (statuses as of 08/21/2023) Resolved Problems Problem Noted Date Diagnosed Date [...] home patient encounter 02/29/2020 03/24/2023 Overview: Sees: Marquez Arthritis (Dr Carias), Dr Matute, Alfred Caballero (spinal stim), Dr Ortiz [facility] ortho. 11/22 EGD [facility] -gastritis. -TTE normal EF. LAE/CARMELINA, mild MR, [...] as of this encounter (statuses as of 08/21/2023) Immunizations Name Administration Dates Next Due COVID-19 [...] as of this encounter Progress Notes * Gurwinder Sherwood MD - 08/21/2023 1:38 PM EST Subjective: Patient location: HOME. I was in a hospital or clinic location. After connecting through [employer],patient was verified with two unique identifiers. Patient (or authorized legal signs sales representative) was then informed that this was a Telemedicine visit and being conducted confidentially over secure lines. Methods to assure confidentiality were taken. Patient acknowledged consent and understanding of pr ivacy and security of the Telemedicine visit. The patient agreed to participate. HPI: Romina Jensen is a 82 year old female with hx of afib, hypothyroidism, HTN, HFpEF, CKD III, COPD, ARTHUR, RA on Humira, Depression and anxiety seen for pt was recently admitted to in psych after SI and severe depression - currently living with daughter (suellen) - currently seeing psychiatrist (Dr. Carlton- [facility]) and they recommended blood work ---pt would like to fax the order to the fax number they provide (#[phone]- attention to Bruno Shaheen) - currently on cymbalta 20mg daily and ativan 0.5mg BID - per daughter symptoms were better --- now having slight worsening depression since her daughter's dog --- had a visit psych today: advised to continue cymbalta 20mg daily for now - not taking celexa - denied any SI/HI - pending psychologist appt - daughter's gun is locked and in a safe Patient Active Problem List Diagnosis Code HTN, goal below 130/80 I10 Fibromyalgia M79.7 Degeneration of lumbosacral intervertebral disc M51.37 Pancreatic insufficiency K86.89 Rheumatoid arthritis ([facility]) M06.9 Paraesophageal hernia K44.9 GERD (gastroesophageal reflux disease) K21.9 Somatization disorder F45.0 ARTHUR (obstructive sleep apnea) G47.33 Controlled substance agreement signed Z79.899 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 E03.4 Paroxysmal atrial fibrillation ([facility]) I48.0 Chronic migraine [id number] Urge incontinence of urine N39.41 Age-related osteoporosis without current pathological fracture M81.0 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 Chronic diastolic heart failure (HCC) I50.32 Chronic kidney disease, stage 3a ([facility]) N18.31 History of partial colectomy Z90.49 Drug induced constipation K59.03 Solar purpura ([facility]) D69.2 SCC (squamous cell carcinoma) C44.92 Renal lesion N28.9 History of pulmonary embolism Z86.711 COPD, group B, by GOLD 2017 classification ([facility]) J44.9 Depression with anxiety F41.8 Current Outpatient Medications Medication Sig Dispense Refill Calcium-Vitamin D-Vitamin K 500-500-40 MG-UNT-MCG Oral Tablet Chewable Take 500 Tablets by mouth inthe morning and 500 Tablets before bedtime. Alum Hydroxide-Mag Carbonate 95-358 MG/15ML Oral Suspension Take by mouth . 2-3 x day nitroglycerin (NITROSTAT) 0.[address] 1 Tab under the tongue as needed for Pain, Chest. May repeat 3 times. If chest pain continues, call 911. 25 Tab 11 Fluocinonide 0.05 % external solution Apply to scalp daily x 2 weeks, then as needed for itching. 60 mL 1 PreserVision AREDS 2+Multi Vit Oral Capsule Take by mouth. Polyethylene Glycol 3350 17 GM/SCOOP Oral Powder (MiraLax) Take 17 g by mouth as needed for Constipation. Dissolve one heaping tablespoon in 8 ounces of water or juice. 850 g 5 Fluorouracil 5 % External Cream (Efudex) Apply to biopsied sites twice daily x 6 weeks and other parts of lower legs twice daily x 4-5 weeks 40 g 5 Triamcinolone Acetonide 0.1 % External Ointment (Aristocort) HYDROcodone-Acetaminophen 10-325 MG Oral Tablet hydrOXYzine HCl 25 MG Oral Tablet 1-2 pills before bed for itching as needed. 60 Tablet 2 oxygen IN GAS 1 LPM via nasal cannula with all and any sleep (Patient not taking: Reported on 08/21/2023) 1 Each 0 ProAir HFA 108 (90 Base) MCG/ACT Inhalation Aerosol Solution Inhale 2 Puffs by mouth in the morningand 2 Puffs at noon and 2 Puffs in the evening and 2 Puffs before bedtime. 18 g 3 Diclofenac Sodium 1 % External Gel (Voltaren) Use 2 GM's topically on back up to 4 times daily. 150g 5 Levothyroxine Sodium 75 MCG Oral Tablet (Synthroid) Taking 75mcg one day alternating with 50mcg every other day 15 Tablet 11 Metoprolol Succinate ER 25 MG Oral Tablet Extended Release 24 Hour (toPROL XL) Take 1 Tablet by mouth in the morning. Flecainide Acetate 50 MG Oral Tablet (Tambocor) Take 1 Tablet by mouth in the morning and 1 Tablet before bedtime. fentaNYL 25 MCG/HR Transdermal Patch 72 Hour (Duragesic) Apply 1 Patch topically to affected area every 3 days. Furosemide 20 MG Oral Tablet (Lasix) Take 1 Tablet by mouth in the morning. Famotidine 20 MG Oral Tablet (Pepcid) Take 1 Tablet by mouth at bedtime. 90 Tablet 1 Sucralfate 1 GM/10ML Oral Suspension (Carafate) Take 10 mL by mouth in the morning and 10 mL at noon and 10 mL in the evening and 10 mL before bedtime. 900 mL 2 Potassium Chloride Tabby ER 10 MEQ Oral Tablet Extended Release Take 1 Tablet by mouth daily. Pantoprazole Sodium 40 MG Oral Tablet Delayed Release (Protonix) Take 1 Tablet by mouth in the morning and 1 Tablet before bedtime. 180 Tablet 1 Levothyroxine Sodium 50 MCG Oral Tablet (Levoxyl) TAKE ONE TABLET BY MOUTH EVERY OTHER DAY alternating with 75mcg every other day 15 Tablet 5 CPAP every night at bedtime. Fluticasone-Salmeterol 115-21 MCG/ACT Inhalation Aerosol (Advair HFA) Inhale 2 Puffs by mouth in the morning and 2 Puffs before bedtime. 12 g 12 Meclizine HCl 25 MG Oral Tablet (Antivert) Take 1 Tablet by mouth 3 times a day as needed for Dizziness. 30 Tablet 1 Walker One walker with wheels; no seat. Dx: Ambulatory dysfunction, history of falls 1 Each 0 Dicyclomine HCl 10 MG Oral Capsule (Bentyl) Take 1 Capsule by mouth 4 times a day as needed for Cramping. For abdominal pain 120 Capsule 11 Armodafinil 250 MG Oral Tablet (Nuvigil) Take 1 Tablet by mouth in the morning. 90 Tablet 0 methylPREDNISolone 4 MG Oral Tablet Therapy Pack (Medrol Dosepack) follow package directions 21 Tablet 4 Lidocaine 4 % External Patch Apply 1 Patch topically to affected area in the morning. Naloxone HCl 4 MG/0.1ML Nasal Liquid Administer 1 [place] into nostril. Sennosides 8.6 MG Oral Tablet daily. Botox 100 UNIT Injection Solution Reconstituted (botulinum toxin type a) Inject 200 units subcutaneously and IM according to the PREEMPT protocol for chronic migraine Humira 40 MG/0.4ML Subcutaneous Prefilled Syringe Kit (Adalimumab) Inject 0.4 mL under the skin once a week. 4.8 mL 3 Bumetanide 0.5 MG Oral Tablet (Bumex) Take 1 Tablet by mouth in the morning. 30 Tablet 1 Citalopram Hydrobromide 20 MG Oral Tablet (CeleXA) Take 1 Tablet by mouth in the morning. 90 Tablet0 Lisinopril 10 MG Oral Tablet (Prinivil) Take 1 Tablet by mouth in the morning. 30 Tablet 0 LORazepam 0.5 MG Oral Tablet (Ativan) Take 1 Tablet by mouth daily as needed for Agitation or Anxiety. No more than 1 tab in 24 hours 30 Tablet 0 DULoxetine HCl 20 MG Oral Capsule Delayed Release Particles (duloxetine) Take 1 Capsule by mouth inthe morning. No current facility-administered medications for this visit. Past Medical History: Diagnosis Date Age-related osteoporosis without current pathological fracture 03/26/2021 Benign neoplasm of colon 01/30/2010 5 polyp- path shows villous tissue repeat in 1 year Benign neoplasm of colon 02/12/2011 polyp, path shows adenomatous tissue repeat in 2 years Concussion syndrome COPD (chronic obstructive pulmonary disease) (HCC) CSA (central sleep apnea) 06/12/2017 CPAP 7 cwp DHC Degeneration of lumbosacral intervertebral disc 01/13/2009 Depression with anxiety 03/24/2023 Drug induced constipation 04/17/2022 Fibromyalgia 12/15/2003 GERD (gastroesophageal reflux disease) 05/27/2015 Antonia's thyroiditis 11/08/2016 Hiatal hernia History of nonmelanoma skin cancer 06/04/2017 Hx of BCC on central forehead - 2016 Hx of SCC on left hand - 2015 History of partial colectomy 12/07/2021 HTN, goal below 130/80 12/15/2003 HTN, goal to be determined Hx of actinic keratosis 08/29/2021 Hypothyroidism 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/30/2021 Myalgia and myositis Nutcracker esophagus 05/2017 see manometry Osteoporosis OTHER osteoarthritis Other osteoporosis without current pathological fracture 12/15/2003 ICD-10 update of inactive term Pancreatic insufficiency 02/01/2014 Pulmonary embolism (HCC) Recurrent major depressive disorder, in partial remission (HCC) 06/04/2018 Rheumatoid arthritis (HCC) 02/01/2014 S/P insertion of spinal cord stimulator 02/29/2020 Sensorineural hearing loss (SNHL), bilateral 04/01/2020 Sleep apnea, obstructive Somatic symptom disorder 08/12/2017 Somatization disorder 10/30/2017 Spinal cord stimulator status 02/12/2022 Past Surgical History: Procedure Laterality Date ARTHROCENT ASP &/OR INJ MAJOR JX/BURSA W/O US 2000 right knee open drainage of cyst ARTHROPLASTY KNEE TOTAL 12/2012 left ARTHROPLASTY KNEE TOTAL Left Dr. Staples CARDIAC CATH-CARDIOLOGY ONLY 12/21/2007 Normal coronaries COLONOSCOPY 07/2006 Negative- Dr. Chahal; repeat in 5 years COLONOSCOPY W/ LESION REMOVAL, SNARE 01/30/2010 5 polyp- path shows villous tissue repeat in 1 year COLONOSCOPY, DIAGNOSTIC (RECTUM) 03/08/2013 COLONOSCOPY FLEXIBLE PROXIMAL DIAGNOSTIC performed by Alyssa Green DO at ENDOSCOPY [facility] COLONOSCOPY, DIAGNOSTIC (RECTUM) 07/15/2016 adenomatous & hyperplastic polyps, diverticulosis, repeat 5 yrs/COLONOSCOPY FLEXIBLE PROXIMAL DIAGNOSTIC performed by Alyssa Green DO at ENDOSCOPY [facility] COLONOSCOPY, DIAGNOSTIC (RECTUM) 04/10/2021 adenomatous & TVA polyps / COLONOSCOPY FLEXIBLE PROXIMAL DIAGNOSTIC performed by Belinda Parikh MD at ENDOSCOPY [facility] COLONOSCOPY, FLEX, W/ ENDOSCOPIC MUCOSAL RESECTION 06/20/2021 large villous type polyp involving the ileocecal valve / COLONOSCOPY, FLEXIBLE; WITH ENDOSCOPIC MUCOSAL RESECTION performed by Steven Kumar MD at ENDOSCOPY [facility] COLONOSCOPY, GI REFERRAL OP 04/2003 Dr. Fernandez- negative study COLONOSCOPY/REMOVE LESION 02/12/2011 polyp, path shows adenomatous tissue repeat in 2 years DESTROY LUMBAR SACRAL NERVE IMAGING SINGLE 05/03/2019 DESTROY LUMBAR SACRAL NERVE IMAGING SINGLE performed by Riley Leiva DO at OR [facility] DOBUTAMINE STRESS ECHO 03/2012 non-ischemic study ECHO EXAM OF HEART (2D ECHO) 11/2004 LV normal size; EF=60%; possible diastolic dysfunction EGD, FLEXIBLE, DIAGNOSTIC 09/13/2010 EGD, FLEXIBLE, DIAGNOSTIC 11/29/2014 mild nonspecific inflammation, hyperplastic gastric polyp, repeat 6 mo/[facility] EGD, FLEXIBLE, DIAGNOSTIC N/A 05/25/2015 ESOPHAGOGASTRODUODENOSCOPY (EGD), FLEXIBLE, TRANSORAL, DIAGNOSTIC performed by Ambrose Mullen MD at OR [facility] EGD, FLEXIBLE, DIAGNOSTIC N/A 08/07/2015 ESOPHAGOGASTRODUODENOSCOPY (EGD), FLEXIBLE, TRANSORAL, DIAGNOSTIC performed by Spencer Sutton MD at ENDOSCOPY [facility] EGD, FLEXIBLE, DIAGNOSTIC 07/15/2016 hyperplastic gastric polyp, repeat 6 mo/ESOPHAGOGASTRODUODENOSCOPY (EGD), FLEXIBLE, TRANSORAL, DIAGNOSTIC performed by Alyssa Green DO at ENDOSCOPY [facility] EGD, FLEXIBLE, DIAGNOSTIC 10/03/2017 mild gastritis/ESOPHAGOGASTRODUODENOSCOPY (EGD), FLEXIBLE, TRANSORAL, DIAGNOSTIC performed by Alyssa Green DO at [facility] EGD, FLEXIBLE, DIAGNOSTIC 12/17/2018 gastritis/ESOPHAGOGASTRODUODENOSCOPY (EGD), FLEXIBLE, TRANSORAL, DIAGNOSTIC performed by Alyssa Green DO at [facility] EGD, FLEXIBLE, DIAGNOSTIC N/A 06/19/2023 gastritis/endoclip found stomach/biopsies show mild inflammatory changes/EGD/[place] EGD, FLEXIBLE, W/BIOPSY 06/14/2011 mild inflammation INJECT DX/THER SUBSTANCE INTERLAMINAR LUMBAR/SACRAL W IMAGE GUIDE 06/29/2018 INJECTION SPINE LUMBAR OR SACRAL performed by Riley Leiva DO at OR [facility] INJECT DX/THER SUBSTANCE INTERLAMINAR LUMBAR/SACRAL W IMAGE GUIDE 01/07/2019 INJECTION SPINE LUMBAR OR SACRAL performed by Riley Leiva, DO at OR [facility] INJECT DX/THER SUBSTANCE INTERLAMINAR LUMBAR/SACRAL W IMAGE GUIDE 10/14/2019 INJECTION SPINE LUMBAR OR SACRAL performed by Riley Leiva DO at OR [facility] INJECTION LUMBAR/SACRAL 05/12/2015 INJECTION SPINE LUMBAR OR SACRAL performed by Riley Ammon Leiva DO at OR [facility] L-/S-SPINE PARAVERTEBRAL FACET INJ,1 LEVEL 06/05/2017 L-/S-SPINE PARAVERTEBRAL FACET INJ, 1 LEVEL performed by [place] Ammon Leiva, at OR [facility] L-/S-SPINE PARAVERTEBRAL FACET INJ,1 LEVEL 04/22/2019 L-/S-SPINE PARAVERTEBRAL FACET INJ, 1 LEVEL performed by Riley Leiva, at OR [facility] LAPAROSCOPIC COLECTOMY PARTIAL WITH ANASTOMOSIS N/A 11/28/2021 LAPAROSCOPIC PARTIAL COLECTOMY WITH ANASTOMOSIS performed by Sanjuanita Jacobs MD at OR [facility] LAPAROSCOPY,SURG,COLPOPEXY 06/01/2008 LAPAROSCOPY SURGICAL COLPOPEXY performed by HERMES LIM at OR [facility] LAPAROSCOPY; CHOLECYSTECTOMY 02/2003 LAPAROSCOPY; CHOLECYSTECTOMY MISCELLANEOUS ORDER ([facility] ONLY) 07/21/2008 Excision, lipoma, right shoulder - Dr. Ramírez MISCELLANEOUS ORDER ([facility] ONLY) Left 01/27/[address] Alfred Caballero MISCELLANEOUS ORDER ([facility] ONLY) ACT 112 SIGNED 06/13/20 DR. ROQUE MOBILE DXA 01/08/2012 Lumbar T -0.3, Femur T -2.6 PACEMAKER INSERTION PER 11/14/2020 Dr Gayle @[facility] PARAESOPHAGEAL HERNIA REPAIR, LAP W/ MESH N/A 05/25/2015 LAPAROSCOPIC PARAESOPHAGEAL HERNIA REPAIR W/MESH performed by Ambrose Mullen MD at OR [facility] PARAESOPHAGEAL HERNIA REPAIR, LAP W/O MESH N/A 05/25/2015 LAPAROSCOPIC PARAESOPHAGEAL HERNIA REPAIR WO/ MESH performed by Ambrose Mullen MD at OR [facility] PARTIAL HYSTERECTOMY 1975 + left oophorectomy + appendix PROSTHETIC MAT/MESH, ABD, NECROTIC, REMOVAL 06/01/2014 pbgh, requiring ptl colectomy REMOVAL OF SPINE LAMINA (ESCOBAR TYPE) 10/16/2009 Lumbar rods, fusion+ spacer- Dr. Healy REPAIR ARM TENDON/MUSCLE 07/24/2009 Right Rotator cuff- Dr. Staples REPAIR BLADDER AND VAGINA 08/2003 anterior repair vagina and "colon tacking" REPAIR RECTUM & VAGINA, RECTOCELE 06/01/2008 POSTERIOR COLPORRHAPHY performed by HERMES LIM at OR [facility] SACROILIAC JOINT INJECT W/GUIDANCE 02/13/2017 INJECTION SACROILIAC JOINT performed by [place] Ammon Leiva DO at OR [facility] SACROILIAC JOINT INJECT W/GUIDANCE Bilateral 06/30/2017 INJECTION SACROILIAC JOINT performed by Riley Leiva, DO at OR [facility] SACROILIAC JOINT INJECT W/GUIDANCE 04/02/2018 INJECTION SACROILIAC JOINT performed by Riley Leiva, DO at OR [facility] SACROILIAC JOINT INJECT W/GUIDANCE 02/01/2019 INJECTION SACROILIAC JOINT performed by Riley Leiva, DO at OR [facility] SACROILIAC JOINT INJECT W/GUIDANCE 07/15/2019 INJECTION SACROILIAC JOINT performed by Riley Leiva, DO at OR [facility] SACROILIAC JOINT INJECT W/GUIDANCE 09/17/2021 INJECTION SACROILIAC JOINT performed by Riley Leiva, DO at OR [facility] SHOULDER REPLACEMENT SURG EDU 11/2018 VASC DUPLEX CAROTID BILAT 11/2004 no stenosis bilaterally Review of patient's allergies indicates: Allergen Reactions Gabapentin Other Reaction(s): HORRIBLE HEADACHES, Unknown Iodinated Contrast Media Ivp Dye Chills/rigors and Other (Please comment) Sneezing immediately after receiving dye Rosuvastatin Unknown Other reaction(s): PAIN IN JOINTS Crestor [Rosuvastatin Calcium] Hives Hives day #2 Crestor Bee Venom swelling Eliquis [Apixaban] Headaches, dizziness Gabapentin Neurontin- memory loss Headaches Gadolinium Other Reaction(s): Unknown Linzess [Linaclotide] Abdominal pain and Other (Please comment) Blurred vision Venlafaxine Effexor XR- vision problems Atorvastatin myalgias with normal serum CK Other reaction(s): PAIN IN JOINTS, Unknown Shellfish-Derived Products Other reaction(s): Headache Family History Problem Relation Age of Onset Arthritis Mother Heart Disorder Mother Stroke Mother Heart Disorder Father CAD Heart Disorder Sister 82 CABGx4 Cancer Sister colon Stroke Sister Cataracts Sister Hypertension Sister Hypertension Sister Arthritis Sister Stroke Sister Arthritis Sister Hypertension Sister Other (Cancer colon) Sister Hypertension Sister Other (Cancer Leukemia) Sister Heart Disorder Sister Hypertension Sister Other (Cancer colon) Sister Hypertension Brother Diabetes Brother Stroke Brother Blood Disorder Brother Hypertension Brother Hypertension Brother Other (Stroke Alzheimer) Brother No Past Hx Brother MVA day after graduated from high school Hypertension Brother Gastro-intestinal disorder Daughter Crohn's Disease Obesity Daughter Other (Other lupus) Daughter Obesity Daughter Obesity Son No Past Hx None NO FM HX of 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 No Vaping/E-Cigarette Substances Nicotine No Other No Flavoring No THC No Cannabidiol (CBD) No Vaping/E-Cigarette Devices Disposable No Pre-filled or Refillable Cartridge No Refillable Tank No Pre-filled Pod No ROS: -Per HPI OBJECTIVE: There were no vitals taken for this visit. PHYSICAL EXAM: Vitals are reviewed Appeared well during the video visit ASSESSMENT/PLAN: For now continue the current cymbalta dose - has a follow up visit with psych in 2 weeks Current severe episode of major depressive disorder without psychotic features without prior episode (HCC) (Primary) - CBC WITH WBC DIFFERENTIAL; Future; Expected date: 08/21/2023 - TSH WITH FREE T4 IF INDICATED; Future; Expected date: 08/21/2023 - COMPREHENSIVE METABOLIC PANEL; Future; Expected date: 08/21/2023 - DISCH MED RECON CUR MED LIS Anxiety - CBC WITH WBC DIFFERENTIAL; Future; Expected date: 08/21/2023 - TSH WITH FREE T4 IF INDICATED; Future; Expected date: 08/21/2023 - COMPREHENSIVE METABOLIC PANEL; Future; Expected date: 08/21/2023 - DISCH MED RECON CUR MED LIS Hospital discharge follow-up - DISCH MED RECON CUR MED LIS Gurwinder Sherwood MD [place] [phone] documented in this encounter Plan of Treatment Upcoming Encounters Date Type Department Care Team (Late st Contact Info) Description 08/25/2023 3:40 PM EST Telemedicine Pulmonary Medicine, [facility] [address] [facility] [place] [address] Gerard Ramos MD [address] [place] [address] 10/10/2023 1:00 PM EST Office Visit Sleep Disorders [facility] [address] [place] [phone] Ofe Toure, [address] [facility] [place] [address] 10/28/2023 10:40 AM EDT Office Visit Rheumatology [facility] [address] [facility] [place] [address] Roberth Roy MD [facility] [place] [address] 11/18/2023 2:00 PM EDT Office Visit Ophthalmology, [facility] [address] [place] [address] Timur Roque [address] [place] [address] 02/04/2024 1:50 PM EDT Office Visit Family Medicine [address] [place] [phone] Ernestina Swanson[address] [place] [address] Scheduled Orders Name Type Priority Associated Diagnoses Orde r Schedule CBC WITH WBC DIFFERENTIAL Lab Routine Current severe episode of major depressive disorder without psychotic features without prior episode (HCC) Anxiety Expected: 08/21/2023, Expires: 08/21/2024 TSH WITH FREE T4 IF INDICATED Lab Routine Current severe episode of major depressive disorder without psychotic features without prior episode (HCC) Anxiety Expected: 08/21/2023, Expires: 08/21/2024 COMPREHENSIVE METABOLIC PANEL Lab Routine Current severe episode of major depressive disorder without psychotic features without prior episode (HCC) Anxiety Expected: 08/21/2023, Expires: 08/21/2024 Health Maintenance Due Date Last Done Comments Alpha-1 Antitrypsin 1960 Zoster Vaccines (1 of 2) 1959 *BISPHONATE OR OTHER ACCEPTABLE MEDICATION NEEDED FOR OSTEOPOROSIS (REFER TO SMARTSET #1146) 03/03/2020 COVID-19 Vaccine (3 - Pfizer risk series) 05/15/2021 04/17/2021, 03/27/2021 Depression Screening 06/04/2022 06/04/2021, 01/01/20 18 Albumin/Creatinine Ratio 04/09/2023 04/09/2022 CKD PHOS USE SMARTSET 40423 04/09/2023 09/0 01/2022, 07/21/2014, 12/17/2012 GFR 10/24/2023 04/25/2023, 02/02, 02/24/2023, Additional history exists TSH 11/13/2023 11/12/2022, 01/2022, 01/05/2021, Additional history exists CKD HGB USE SMARTSET 51363 04/25/202404/25, 04/25/2023, 03/19/2023, Additional history exists O2 [...] D LEVEL ONCE IN A LIFETIME-USE SMARTSET# 91754 Completed 04/25/2023, 01/25/2022, 01/14/2019, Additional history exists [...] this encounter Medical Devices Implanted Type Area Patients Transporter Device Identifier Shelf Expiration Date Model / Serial / Lot Alloderm 2x4cm [id number] (8 Units) - [id number] Implanted:Qty : 8 on 05/25/2015 by Ambrose Mullen MD at OR [facility] Tissue - Human N/A: Esophagus [employer]LL AQUILINO 01/01/2017 [id number] / / [id number] Mesh Pelvic Gynamesh Gpsl - [id number] Implanted:Qty : 1 on 06/01/2008 at OR [facility] Bilateral: Pelvis AICHA & AICHA 08/04/2012 GPSL / / [id number] Clip Quick 2.8mm 230cm - [id number] Implanted:Qty : 3 on 04/10/2021 by Belinda Parikh MD at ENDOSCOPY [facility] [employer] 05/03/2022 [id number]. 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 No Does the patient have Health Care Power of Care Manager? No Code Status History Code Status Date Activated Date Inactivated Comments Full Code 05/25/2015 7:17 PM 05/27/2015 5:03 PM Thi s order reflects the patients wishes and were consensually agreed upon. Full Code 05/25/2015 1:12 PM 05/25/2015 7:17 PM Thi s order reflects the patients wishes and were consensually agreed upon. Full Code 06/01/2008 4:58 PM 06/02/2008 8:10 PM Care Teams Applications Processor Relationship Specialty Start Date End Date Ernestina Swanson DO [address] [place] [address] KERRI Trivedi [phone] PCP - General Internal Medicine 06/11/23 documented as of this encounter
--- OUTSIDE RECORDS SUMMARY | 2023-09-30 23:24 | External Medical Summary | Summary of Care ---
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 0 3 Active Sennosides 8.6 [...] by mouth in the morning. 0 Active Cephalexin 500 MG Oral Capsule (Keflex) 1 Capsule. 0 3 08/21/19 24 Discontinu ed(Medicat ion List Clean Up) Citalopram Hydrobromide 20 MG Oral Tablet (CeleXA) [...] home patient encounter 02/29/2020 03/24/2023 Overview: Sees: [facility] (Dr Carias), Dr Matute, Alfred Caballero (spinal stim), Dr Ortiz [facility] ortho. 11/22 EGD [facility] -gastritis. -TTE normal EF. LAE/CARMELINA, mild [...] Date Smoking Tobacco: Never Smokeless Tobacco: Never Tobacco Cessation:Counseling Given: Not Answered Alcohol Use Standard Drinks/Week Comments No 0 [...] on file documented as of this encounter Last Filed Vital Signs Vital Sign Reading Time Taken Comments Blood Pressure - - Pulse - - Temperature - - Respiratory Rate - - Oxygen Saturation - - Inhaled Oxygen Concentration - - Weight - - Height 148.6 cm (4' 10.5") 08/21/2023 9:46 AM ES T Body Mass Index - - documented in this encounter Functional Status Functional Status Response [...] as of this encounter Progress Notes * Gerard Ramos MD - 08/25/2023 4:01 PM EST 08/25/2023 Pulmonary Medicine, [address] [place] [id number] Romina Jensen 1940 female 82 year old Attending Physician Documentation: 82-year-old female, significant past medical history of rheumatoid arthritis, hypertension, AFib, p.m. status, COPD, lifetime nonsmoker, OSAS on CPAP therapy, chronic hypoxic respiratory status on home oxygen therapy, CKD, history of fall with rib fractures requiring chest tube placement at [facility], presenting for follow-up telemedicine pulmonary visit. Patient describes steady respiratory symptoms status, denies recent wheezing, shortness of breath. Compliant with home oxygen therapy. Recent hospitalization for depression, feeling gradually improved, recuperating at her daughter's home. Compliant with home oxygen and CPAP therapy. Appetite is improved. Denies productive cough, high-grade fever. Describes lower extremity edema. Describes lower extremity swelling, Cardiology adjusting diuretic regimen. Current bronchodilator regimen includes rare use of rescue albuterol inhaler only. Patient had been continuing on Eliquis therapy following an episode of pulmonary embolism in January 2023. Also history of AFib noted. Assessment Multifactorial dyspnea, likely related to rheumatoid lung, reactive airway disease, asthma, AFib, CHF, deconditioning History of fall with rib fractures, pneumothorax/hemothorax February 2023, treated at [facility] Rheumatoid arthritis, on weekly Humira therapy Chronic hypoxic respiratory status on home oxygen OSAS on CPAP therapy AFib, ppm status CHF Hypertension GERD Deconditioning Plan: Maintain physical activity status Maintain aspiration precautions LABA/ICS inhaler Anti-inflammatory therapy with acetaminophen for costochondritis Pulmonary clinic follow-up in 6 months Follow Up: Return in about 6 months (around 02/23/2024) for Video to Home, Clinic Visit. | For: Video to Home, Clinic Visit | Check-out note: Multifactorial dyspnea, likely related to rheumatoid lung,reactive airway disease, asthma, AFib, CHF, deconditioning History of fall with rib fractures, pneumothorax/hemothorax February 2023, treated at [facility] Rheumatoid arthritis, on weekly Humira therapy Chronic hypoxic respiratory status on home oxygen OSAS on CPAP therapy AFib, ppm status CHF Hypertension GERD Deconditioning Plan: Maintain physical activity status Maintain aspiration precautions LABA/ICS inhaler Anti-i Follow Up: Return in about 6 months (around 02/23/2024) for Video to Home, Clinic Visit. | For: Video to Home, Clinic Visit | Check-out note: nflammatory therapy with acetaminophen for costochondritis Pulmonary clinic follow-up in 6 months Gerard Ramos MD Subjective CC: Chief Complaint Patient presents with Follow Up HPI: Nursing Notes: Katy Wong LPN 08/21/23 0951 Signed Pt for f/u multifactorial dyspnea and chronic hypoxic resp status. MMRC Dyspnea Scale = 3 (I stop for breath after walking about 100 yards or after a few minutes on ground level) Interm History/Respiratory Symptoms Cough: no Hemoptysis: no Sinus Symptoms: no Hospitalizations: [facility] 08/05-08/06/23 depression ED Trips: 08/05/23 Triggers: exertion Nocturnal: no problems, sleeps with head elevated CPAP/BiPAP/O2: CPAP at night, O2 2 LPM "when I feel like it" Flu Vaccine: 2022 Pneumovax: 2016 Prevnar: 2014 COVID 19: 03/27/21 and 04/17/21 Objective Filed Vitals: 08/21/23 0946 Height: 1.486 m (4' 10.5") Exam: Const: No signs of acute distress present. Head/Face: Normal on inspection. Eyes: Conjunctivae clear. Pupils equal round and reactive to light. ENMT: Oropharynx: No erythema, exudate or masses. Posterior pharynx is normal. Neck: Supple and symmetric. Resp: Respiratory examination as outlined above CV: Rate is regular. Rhythm is regular. No heart murmur appreciated. Skin: Skin is warm and dry. Neuro: Coordination normal. No involuntary movement. Psych: Patient's attitude is cooperative. Mood is normal. Affect is normal. Tests reviewed with the patient: XR CHEST 2 VIEWS Result Date: 06/04/2023 IMPRESSION No acute pulmonary process. Details as above. FLUORO GUIDED ASPIRATION BIOPSY Result Date: 05/07/2023 IMPRESSION Fluoroscopic-guided intra-articular injection of the left hip with steroid and anesthetic. FLUORO GUIDED ASPIRATION BIOPSY Result Date: 05/07/2023 IMPRESSION Fluoroscopic-guided intra-articular injection of the right hip with steroid and anesthetic. DEXA SCAN/BONE MINERAL AXIAL Result Date: 04/14/2023 S: Fracture risk is based on current National Osteoporosis Foundation (www.nof.org) Clinicians Guide and [place] Association of Clinical Endocrinology (AACE) Guidelines (www.aace.com) and the application of current WHO FRAX tool (https://www.scotty.ac.uk/FRAX/) as well as the 2017 [place] [employer] Glucocorticoid Induced Osteoporosis (GIOP) Guidelines (rheumatology.org/Practice-Quality/Clinical-Support/Owpmoldv-Jwxuyvby-Lrcrk lines) using Bone mineral density derived T-scoresand clinical risk factors obtained from the patient questionnaire. 1. The fracture risk is HIGH (remains HIGH) 2. The quality of the examination is GOOD. The values at the lumbar spine are falsely elevated, and therefore the values at the hip/femoral neck are a better reflection of fracture risk inthis patient. 3. No previous study for comparison. The low Z-score reflects a low bone mineral density compared to age, and gender-matched controls. SUGGESTIONS: Info rmation concerning the evaluation and treatment of osteoporosis can be found at the National Osteoporosis Foundation website (www.nof.org) and [place] Association of Clinical Endocrinology (AACE-www.aace.com). Osteoporosis prevention and treatment begins by modifying risk factors (such as smoking c essation and avoiding alcohol excess) and by participating in weight-bearing activities and exercise. Issues related to fall prevention and home safety should be addressed. Current NOF guidelines suggest 1200 to 1500 mg of calcium from diet and or supplemental sources. It is generally felt best to get calcium from ones diet. Calcium carbonate and calcium citrate are common calcium supplement choices in most local pharmacies. If the patient is taking a proton pump inhibitor, then calcium citrate should be the preferred supplement, if that is necessary. NOF guidelines for vitamin D are 800 to 1000 units of vitamin D3 daily. However, this may best be guided by measurement of 25-OH vitamin-Dlevel, aiming for a level between 30 to 50 units (ng/ml). Additional information can be found at the FRAX website (https://www.scotty.ac.uk/FRAX/), and the [place] College [employer] Rheumatology website (https://www.rheumatology.org/Practice-Quality/Clinical-Support/Clinical-Pr actice-Guidelines). 1. The present treatment with Reclast/Zoledronic Acid may be helping to maintain bone mineral density. in this patient. 2. Given the patient's Z-score (comparison with age matched controls) which is below 1.0, one should consider secondary causes of low bone mineral density. A 25-OH Vitamin D, serum calcium, and creatinine should be obtained. Other studies can be considered which would include a PTH,IEP, TSH, or Testosterone (in men). For [facility] Providers, use the OSTEOPOROSIS Smart Set [1146] 3. A repeat study should be considered in 2 years, while on therapy RAMIRO GAVIN M.D. ISCD Certified Clinical Pan Puller Department of Rheumatology Interview [facility] XR HIP BILAT MIN 5 VIEWS INCLUDING AP OF PELVIS Result Date: 03/25/2023 IMPRESSION: No definite acute fracture is seen. THIS DOCUMENT HAS BEEN ELECTRONICALLY SIGNED BY RUCHI ANNE MD CT HEAD/BRAIN WO CONTRAST Result Date: 03/24/2023 IMPRESSION: No evidence of acute infarction or intracranial hemorrhage. Chronic microvascular whitematter disease and parenchymal volume loss. MR imaging is often more sensitive in the detection of acute or subtle ischemic, inflammatory or neoplastic lesions, and can be considered if there are persistent or unexplained neurologic findings. VASC DUPLEX VENOUS LE BILAT Result Date: 03/11/2023 1. No evidence for lower extremity deep venous thrombosis of the common femoral vein, femoral vein,or popliteal vein. 2. Right popliteal cyst is smaller than prior study. Signed By: Kayla Nguyen On: 03/11/2023 2:18 PM EDT Available Radiologic data was reviewed by me in PACS. The images were shown to the patient and findings were discussed with the patient. HOME MEDICATIONS: DULoxetine HCl 20 MG Oral Capsule Delayed Release Particles (duloxetine) LORazepam 0.5 MG Oral Tablet (Ativan) Lisinopril 10 MG Oral Tablet (Prinivil) Bumetanide 0.5 MG Oral Tablet (Bumex) Humira 40 MG/0.4ML Subcutaneous Prefilled Syringe Kit (Adalimumab) Botox 100 UNIT Injection Solution Reconstituted (botulinum toxin type a) Lidocaine 4 % External Patch Naloxone HCl 4 MG/0.1ML Nasal Liquid Sennosides 8.6 MG Oral Tablet Armodafinil 250 MG Oral Tablet (Nuvigil) methylPREDNISolone 4 MG Oral Tablet Therapy Pack (Medrol Dosepack) Dicyclomine HCl 10 MG Oral Capsule (Bentyl) Walker Meclizine HCl 25 MG Oral Tablet (Antivert) Fluticasone-Salmeterol 115-21 MCG/ACT Inhalation Aerosol (Advair HFA) CPAP Levothyroxine Sodium 50 MCG Oral Tablet (Levoxyl) Pantoprazole Sodium 40 MG Oral Tablet Delayed Release (Protonix) Potassium Chloride Tabby ER 10 MEQ Oral Tablet Extended Release Sucralfate 1 GM/10ML Oral Suspension (Carafate) Famotidine 20 MG Oral Tablet (Pepcid) Furosemide 20 MG Oral Tablet (Lasix) fentaNYL 25 MCG/HR Transdermal Patch 72 Hour (Duragesic) Flecainide Acetate 50 MG Oral Tablet (Tambocor) Metoprolol Succinate ER 25 MG Oral Tablet Extended Release 24 Hour (toPROL XL) Levothyroxine Sodium 75 MCG Oral Tablet (Synthroid) Diclofenac Sodium 1 % External Gel (Voltaren) ProAir HFA 108 (90 Base) MCG/ACT Inhalation Aerosol Solution hydrOXYzine HCl 25 MG Oral Tablet HYDROcodone-Acetaminophen 10-325 MG Oral Tablet Triamcinolone Acetonide 0.1 % External Ointment (Aristocort) Fluorouracil 5 % External Cream (Efudex) Polyethylene Glycol 3350 17 GM/SCOOP Oral Powder (MiraLax) PreserVision AREDS 2+Multi Vit Oral Capsule Fluocinonide 0.05 % external solution nitroglycerin (NITROSTAT) 0.3 MG SL tablet Alum Hydroxide-Mag Carbonate 95-358 MG/15ML Oral Suspension Calcium-Vitamin D-Vitamin K 500-500-40 MG-UNT-MCG Oral Tablet Chewable oxygen IN GAS ROS: No reported history of Hemoptysis, Hematemesis, Melena No reported history of Dysuria, Hematuria, Flank Pain No reported history of chronic headache, seizures No reported history of recent change in weight or appetite. Past Medical History: Diagnosis Date Age-related osteoporosis [...] performed by Alyssa Green DO at ENDOSCOPY [facility] COLONOSCOPY, DIAGNOSTIC (RECTUM) 07/15/2016 adenomatous & hyperplastic polyps, diverticulosis, repeat 5 yrs/COLONOSCOPY FLEXIBLE PROXIMAL DIAGNOSTIC performed by Alyssa Green DO at ENDOSCOPY [facility] COLONOSCOPY, DIAGNOSTIC (RECTUM) 04/10/2021 adenomatous & TVA polyps / COLONOSCOPY FLEXIBLE PROXIMAL DIAGNOSTIC performed by Belinda Parikh MD at ENDOSCOPY [facility] COLONOSCOPY, FLEX, W/ ENDOSCOPIC MUCOSAL RESECTION 06/20/2021 large villous type polyp involving the ileocecal valve / COLONOSCOPY, FLEXIBLE; WITH ENDOSCOPIC MUCOSAL RESECTION performed by Steven Kumar MD at ENDOSCOPY [facility] COLONOSCOPY, GI REFERRAL OP 04/2003 Dr. Fernandez- negative study COLONOSCOPY/REMOVE LESION 02/12/2011 polyp, path shows adenomatous tissue repeat in 2 years DESTROY LUMBAR SACRAL NERVE IMAGING SINGLE 05/03/2019 DESTROY LUMBAR SACRAL NERVE IMAGING SINGLE performed by Riley Leiva DO at OR [facility] DOBUTAMINE STRESS ECHO 03/2012 non-ischemic study ECHO EXAM OF HEART (2D ECHO) 11/2004 LV normal size; EF=60%; possible diastolic dysfunction EGD, FLEXIBLE, DIAGNOSTIC 09/13/2010 EGD, FLEXIBLE, DIAGNOSTIC 11/29/2014 mild nonspecific inflammation, hyperplastic gastric polyp, repeat 6 mo/[facility] EGD, FLEXIBLE, DIAGNOSTIC N/A 05/25/2015 ESOPHAGOGASTRODUODENOSCOPY (EGD), FLEXIBLE, TRANSORAL, DIAGNOSTIC performed by Ambrose Mullen MD at [place] [facility] EGD, FLEXIBLE, DIAGNOSTIC N/A 08/07/2015 ESOPHAGOGASTRODUODENOSCOPY (EGD), FLEXIBLE, TRANSORAL, DIAGNOSTIC performed by Spencer Sutton MD at [facility] EGD, FLEXIBLE, DIAGNOSTIC 07/15/2016 hyperplastic gastric polyp, repeat 6 mo/ESOPHAGOGASTRODUODENOSCOPY (EGD), FLEXIBLE, TRANSORAL, DIAGNOSTIC performed by Alyssa Green DO at ENDOSCOPY [facility] EGD, FLEXIBLE, DIAGNOSTIC 10/03/2017 mild gastritis/ESOPHAGOGASTRODUODENOSCOPY (EGD), FLEXIBLE, TRANSORAL, DIAGNOSTIC performed by Alyssa Green DO at [facility] EGD, FLEXIBLE, DIAGNOSTIC 12/17/2018 gastritis/ESOPHAGOGASTRODUODENOSCOPY (EGD), FLEXIBLE, TRANSORAL, DIAGNOSTIC performed by Alyssa Green DO at [facility] EGD, FLEXIBLE, DIAGNOSTIC N/A 06/19/2023 gastritis/endoclip found stomach/biopsies show mild inflammatory changes/EGD/TN EGD, FLEXIBLE, W/BIOPSY 06/14/2011 mild inflammation INJECT DX/THER SUBSTANCE INTERLAMINAR LUMBAR/SACRAL W IMAGE GUIDE 06/29/2018 INJECTION SPINE LUMBAR OR SACRAL performed by Riley Leiva, DO at OR [facility] INJECT DX/THER SUBSTANCE INTERLAMINAR LUMBAR/SACRAL W IMAGE GUIDE 01/07/2019 INJECTION SPINE LUMBAR OR SACRAL performed by [place] Ammon Leiva, DO at OR [facility] INJECT DX/THER SUBSTANCE INTERLAMINAR LUMBAR/SACRAL W IMAGE GUIDE 10/14/2019 INJECTION SPINE LUMBAR OR SACRAL performed by [place] Ammon Leiva, DO at OR [facility] INJECTION LUMBAR/SACRAL 05/12/2015 INJECTION SPINE LUMBAR OR SACRAL performed by [place] Ammon Leiva, DO at OR [facility] L-/S-SPINE PARAVERTEBRAL FACET INJ,1 LEVEL 06/05/2017 L-/S-SPINE PARAVERTEBRAL FACET INJ, 1 LEVEL performed by Riley Leiva DO at OR [facility] L-/S-SPINE PARAVERTEBRAL FACET INJ,1 LEVEL 04/22/2019 L-/S-SPINE PARAVERTEBRAL FACET INJ, 1 LEVEL performed by Riley Leiva DO at OR [facility] LAPAROSCOPIC COLECTOMY PARTIAL WITH ANASTOMOSIS N/A 11/28/2021 LAPAROSCOPIC PARTIAL COLECTOMY WITH ANASTOMOSIS performed by Sanjuanita Jacobs MD at [place] [facility] LAPAROSCOPY,SURG,COLPOPEXY 06/01/2008 LAPAROSCOPY SURGICAL COLPOPEXY performed by HERMES LIM at [place] [facility] LAPAROSCOPY; CHOLECYSTECTOMY 02/2003 LAPAROSCOPY; CHOLECYSTECTOMY MISCELLANEOUS ORDER ([facility] ONLY) 07/21/2008 Excision, lipoma, right shoulder - Dr. Ramírez MISCELLANEOUS ORDER ([facility] ONLY) Left 01/27/[address] Alfred Caballero MISCELLANEOUS ORDER ([facility] ONLY) ACT 112 SIGNED 06/13/20 DR. ROQUE MOBILE DXA 01/08/2012 Lumbar T -0.3, Femur T -2.6 PACEMAKER INSERTION PER 11/14/2020 Dr Gayle @[facility] PARAESOPHAGEAL HERNIA REPAIR, LAP W/ MESH N/A 05/25/2015 LAPAROSCOPIC PARAESOPHAGEAL HERNIA REPAIR W/MESH performed by Ambrose Mullen MD at [place] [facility] PARAESOPHAGEAL HERNIA REPAIR, LAP W/O MESH N/A 05/25/2015 LAPAROSCOPIC PARAESOPHAGEAL HERNIA REPAIR WO/ MESH performed by Ambrose Mullen MD at [facility] PARTIAL HYSTERECTOMY 1975 + left oophorectomy + [...] COLPORRHAPHY performed by HERMES LIM at [facility] SACROILIAC JOINT INJECT W/GUIDANCE 02/13/2017 INJECTION SACROILIAC JOINT performed by [place] Ammon Leiva DO at OR [facility] SACROILIAC JOINT INJECT W/GUIDANCE Bilateral 06/30/2017 INJECTION [...] by Riley Leiva, DO at OR [facility] SHOULDER REPLACEMENT SURG EDU 11/2018 VASC DUPLEX CAROTID BILAT 11/2004 no stenosis bilaterally Social History Socioeconomic History Marital status: Number of children: 3 Tobacco Use Smoking status: Never Smokeless tobacco: Never Vaping Use Vaping Use: Never used Substance and Sexual Activity Alcohol use: No Drug use: No Sexual activity: Not Currently Partners: Male Comment: Other Topics Concern Blood Transfusions No Social History Narrative Homemaker Social Determinants of Health Food Insecurity: No Food Insecurity (02/28/2023) Hunger Vital Sign Worried About Running Out of Food in the Last Year: Never true Ran Out of Food in the Last Year: Never true Family History Problem Relation Age of Onset [...] Past Hx None NO FM 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 MMRC Dyspnea Scale = 3 (I stop for breath after walking about 100 yards or after a few minutes on ground level) Interm History/Respiratory Symptoms Cough: no Hemoptysis: no Sinus Symptoms: no Hospitalizations: [facility] 08/05-08/06/23 depression ED Trips: 08/05/23 Triggers: exertion Nocturnal: no problems, sleeps with head elevated CPAP/BiPAP/O2: CPAP at night, O2 2 LPM "when I feel like it" Flu Vaccine: 2022 Pneumovax: 2016 Prevnar: 2015 COVID 19: 03/27/21 and 04/17/21 documented in this encounter Plan of Treatment Upcoming Encounters Date Type Department Care Team (Late st Contact Info) Description 09/16/2023 8:15 AM EST Office Visit Ophthalmology, [facility] [address] [place] [address] Timur Roque, DO [address] [place] [address] 10/10/2023 1:00 PM EST Office Visit Sleep Disorders Ctr [facility] [address] [place] [phone] Ofe Toure, DO [address] [place] [address] 10/28/2023 10:40 AM EDT Office Visit Rheumatology [address] [place] [address] Ramiro Gavin MD [address] [place] [address] 02/04/2024 1:50 PM EDT Office Visit Family Medicine [address] [place] [phone] [address] [place] [address] Health Maintenance Due Date Last Done Comments Alpha-1 Antitrypsin 1960 Zoster Vaccines (1 of 2) 1959 *BISPHONATE OR OTHER ACCEPTABLE MEDICATION NEEDED FOR OSTEOPOROSIS (REFER TO SMARTSET #1146) 03/03/2020 COVID-19 Vaccine (3 - Pfizer risk series) 05/15/2021 04/17/2021, 03/27/2021 Depression Screening 06/04/2022 06/04/2021, 01/01/20 18 Albumin/Creatinine Ratio 04/09/2023 04/09/2022 CKD PHOS USE SMARTSET 60185 04/09/2023 09/0 01/2022, 07/21/2014, 12/17/2012 GFR 10/24/2023 04/25/2023, 02/02, 02/24/2023, Additional history exists TSH 11/13/2023 11/12/2022, 090 01/2022, 01/05/2021, Additional history exists CKD HGB USE SMARTSET 17948 04/25/202404/25, 04/25/2023, 03/19/2023, Additional history exists O2 [...] D LEVEL ONCE IN A LIFETIME-USE SMARTSET# 00605 Completed 04/25/2023, 01/25/2022, 01/14/2019, Additional history exists [...] this encounter Medical Devices Implanted Type Area Auto Refinisher Device Identifier Shelf Expiration Date Model / Serial / Lot Alloderm 2x4cm [id number] (8 Units) - [id number] Implanted:Qty : 8 on 05/25/2015 by Ambrose Mullen MD [place] [facility] Tissue - Human N/A: Esophagus [employer] 01/01/2017 [id number] / / [id number] Mesh Pelvic Gynamesh Gpsl - [id number] Implanted:Qty : 1 on 06/01/2008 at [place] [facility] Bilateral: Pelvis [employer]HA [employer] AICHA 08/04/2012 GPSL / / [id number] Clip Quick 2.8mm 230cm - [id number] Implanted:Qty : 3 on 04/10/2021 by Belinda Parikh MD at ENDOSCOPY [facility] Colon [employer] 05/03/2022 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 No Does the patient have Health Care Power of Supervisor Concrete [employer]? No Code Status History Code Status Date Activated Date Inactivated Comments Full Code 05/25/2015 7:17 PM 05/27/2015 5:03 PM Thi s order reflects the patients wishes and were consensually agreed upon. Full Code 05/25/2015 1:12 PM 05/25/2015 7:17 PM Thi s order reflects the patients wishes and were consensually agreed upon. Full Code 06/01/2008 4:58 PM 06/02/2008 8:10 PM Care Teams Director Of Resource Development Relationship Specialty Start Date End Date Ernestina Swanson DO [address] [place] [address] [place] [address] PCP - General Internal Medicine 06/11/23 documented as of this encounter
--- OUTSIDE RECORDS SUMMARY | 2023-09-30 23:24 | External Medical Summary | Summary of Care ---
Author Name Unknown Organization [facility] Address [address] [place] [address] Phone [phone] Care Team Providers Care Sterile Instrument Technician Name Role Phone Ernestina Swanson DO Primary Care Provider Encounter Details Date Type Department Care Team (Late st Contact Info) Description 08/19/2023 Telephone Pulmonary Medicine, [facility] [address] [place] [address] Ofe Toure DO [address] [place] [address] Allergies Active Allergy Reactions Criticality Noted Date [...] Each 0 06/19/2022 Active Additional Information Patient taking differently: 2 [...] HCl 4 MG/0.1ML Nasal Liquid Administer 1 [place] into nostril. 0 02/24/2023 Active Sennosides 8.6 MG Oral Tablet daily. 0 02/24/2023 Active Cephalexin 500 MG Oral Capsule (Keflex) 1 Capsule. 0 04/28/2023 Active Botox 100 UNIT Injection Solution Reconstituted [...] the morning. 30 Tablet 1 05/09/2023 Active Citalopram Hydrobromide 20 MG Oral Tablet (CeleXA) Take 1 Tablet by mouth in the morning. 90 Tablet 0 05/16/2023 Active Lisinopril 10 MG Oral Tablet (Prinivil) Take 1 Tablet by mouth in the morning. 30 Tablet 0 07/22/2023 Active LORazepam 0.5 MG Oral Tablet (Ativan)Indications :STEPHANIE (generalized anxiety disorder) Take 1 Tablet by mouth daily as needed for Agitation or Anxiety. No more than 1 tab in 24 hours 30 Tablet 0 08/01/2023 Active documented as of this encounter (statuses [...] home patient encounter 02/29/2020 03/24/2023 Overview: Sees: [place] Arthritis (Dr Carias), Dr Matute, Alfred Caballero (spinal stim), Dr Ortiz [facility] ortho. 11/22 EGD [facility] -gastritis. -TTE normal EF. LAE/CARMELINA, mild [...] mRNA, LNP-s, No Pre serve, 2-Dose Series ([employer]) 04/17/2021,03/27/2021 Pneumococcal Conjugate Vacc, 13 Valent (Prevnar) [...] encounter Miscellaneous Notes * Telephone Encounter - Sahara Covington OSA - 08/19/2023 3:04 PM EST From TH: Hi there, we wanted to let you all know that this order has been cancelled by [facility]. Theyare advising that the patient has said they no longer want or need the supplies. We will be reaching out to the patient to notify them and confirm as well. Thank you. documented in this encounter Plan of Treatment Upcoming Encounters Date Type Department Care Team (Late st Contact Info) Description 08/21/2023 1:40 PM EST Telemedicine Family Medicine [address] [place] [phone] Gurwinder Sherwood MD [address] [place] [address] [place] [address] 08/25/2023 3:40 PM EST Telemedicine Pulmonary Medicine, [address] [place] [address] Gerard Ramos MD [address] [facility] [place] [address] 10/10/2023 1:00 PM EST Office Visit Sleep Disorders Ctr [facility] [address] [place] [phone] Ofe Toure, DO [address] [place] [address] 10/28/2023 10:40 AM EDT Office Visit Rheumatology [place] [phone] [place] [address] Roberth Roy MD [facility] [address] [employer] [place] [address] 11/18/2023 2:00 PM EDT Office Visit Ophthalmology, [facility] [address] [place] [address] Timur Roque, DO [address] [place] [address] 02/04/2024 1:50 PM EDT Office Visit Family Medicine [address] [place] [phone] Ernestina Swanson, [address] [place] [address] Health Maintenance Due Date Last Done Comments Alpha-1 Antitrypsin 1960 Zoster Vaccines (1 of 2) 1961 *BISPHONATE OR OTHER ACCEPTABLE MEDICATION NEEDED FOR OSTEOPOROSIS (REFER TO SMARTSET #1146) 03/03/2020 COVID-19 Vaccine (3 - Pfizer risk series) 05/15/2021 04/17/2021, 03/27/2021 Depression Screening 06/04/2022 06/04/2021, 01/01/20 18 Albumin/Creatinine Ratio 04/09/2023 04/09/2022 CKD PHOS USE SMARTSET 51423 04/09/2023 09/0 01/2022, 07/21/2014, 12/17/2012 GFR 10/24/2023 04/25/2023, 02/02, 02/24/2023, Additional history exists TSH 11/13/2023 11/12/2022, 090 01/2022, 01/05/2021, Additional history exists CKD HGB USE SMARTSET 19118 04/25/202404/25, 04/25/2023, 03/19/2023, Additional history exists O2 [...] D LEVEL ONCE IN A LIFETIME-USE SMARTSET# 77611 Completed 04/25/2023, 01/25/2022, 01/14/2019, Additional history exists [...] this encounter Medical Devices Implanted Type Area Machine Fur Cleaner Device Identifier Shelf Expiration Date Model / Serial / Lot Alloderm 2x4cm [id number] (8 Units) - [id number] Implanted:Qty : 8 on 05/25/2015 [place] Ambrose Mullen [place] [facility] [place] - Human N/A: Esophagus LIFE CELL AQUILINO 01/01/2017 [id number] / / [id number] Mesh Pelvic Gynamesh Gpsl - [id number] Implanted:Qty : 1 on 06/01/2008 [place] [facility] [place] Bilateral: Pelvis AICHA & AICHA 08/04/2012 GPSL / / [id number] Clip Quick 2.8mm 230cm - [id number] Implanted:Qty : 3 on 04/10/2021 by Belinda Parikh MD at ENDOSCOPY [facility] Colon [employer] 05/03/2022 [id number]. A / / documented as of this encounter Advance Directives Documents on File Type Date Recorded Patient Mold Capper Helper Expl anation Advance Directives and Living Will 03/29/2008 Latest Code Status on File Code Status Date Activated Date Inactivated Comments Full Code 11/28/2021 3:33 PM 11/30/2021 3:14 PM Question Answer Comments Discussion of Advance Direct jeremiah occurred with: Not Discussed Does the patient have a Living Will? No Does the patient have Health Care Power of Consulting Project Director? No Code Status History Code Status Date Activated Date Inactivated Comments Full Code 05/25/2015 7:17 PM 05/27/2015 5:03 PM Thi s order reflects the patients wishes and were consensually agreed upon. Full Code 05/25/2015 1:12 PM 05/25/2015 7:17 PM Thi s order reflects the patients wishes and were consensually agreed upon. Full Code 06/01/2008 4:58 PM 06/02/2008 8:10 PM Care Teams Sterile Instrument Technician Relationship Specialty Start Date End Date Ernestina Swanson DO [address] [place] [address] [place] [address] PCP - General Internal Medicine 06/11/23 documented as of this encounter
--- OUTSIDE RECORDS SUMMARY | 2023-09-30 23:25 | External Medical Summary | Summary of Care ---
Author Name Unknown Organization [facility] Address [address] [place] [address] Phone [phone] Care Team Providers Care Regulatory Leader Name Role Phone Ernestina Swanson DO Primary Care Provider [phone] Reason for Visit * Reason Onset Date Comments Test Results 07/19/2022 Sleep study Encounter Details Date Type Department Care Team (Late st Contact Info) Description 07/19/2022 Telephone Pulmonary Medicine, [facility] [address] [place] [address] Kym Alonso CRNP Test Results (Sleep study ) Allergies Active Allergy Reactions Criticality Noted Date [...] as of this encounter (statuses as of 08/14/2023) Medications Medication Sig Dispensed Refills Start Date [...] 11 8 Active Fluocinonide 0.05 % external solutionIndication s:Seborrheic dermatitis of scalp Apply to scalp daily [...] 0 Active Fluorouracil 5 % External Cream (Efudex)Indication s: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 60 Tablet 2 2 Active oxygen IN GASIndications:Noc turnal hypoxemia,Chronic diastolic heart failure (HCC),ARTHUR (obstructive sleep [...] before bedtime. 18 g 3 2 Active Estrogens, Conjugated 0.625 MG/GM Vaginal Cream (Premarin) Administer 0.5 g into the vagina once a day Friday and only. Use 0.5 g with applicator at bedtime 30 g 6 1 023 Discontinued(In dication List Clean Up) Meclizine HCl 25 MG Oral Tablet (Antivert) Take by mouth 1 Tablet as needed in the morning AND 1 Tablet as needed at noon AND 1 Tablet as needed in the evening for Dizziness. 30 Tablet 1 2 023 Discontinued LORazepam 0.5 MG Oral Tablet (Ativan) 0 2 023 Discontinued Clotrimazole-Betam ethasone 1-0.05 % External Cream (Lotrisone)Indicat ions:Paronychia, finger, left Apply to L finger up to twice daily as needed 15 g 1 2 023 Discontinued Levothyroxine Sodium 75 MCG Oral Tablet (Synthroid)Indicat ions:Acquired hypothyroidism Taking 75mcg one day alternating with 50mcg every other day 14 Tablet 0 2 023 Discontinued(Re fill) fentaNYL 37.5 MCG/HR Transdermal Patch 72 Hour 0 2 023 Discontinued Dicyclomine HCl 10 MG Oral Capsule (Bentyl) Take by mouth 1 Capsule as needed in the morning AND 1 Capsule as needed at noon AND 1 Capsule as needed in the evening AND 1 Capsule as needed before bedtime for Cramping. For abdominal pain. 120 Capsule 11 2 023 Discontinued(Re fill) Polyethylene Glycol 3350 17 GM Oral Packet (Miralax) Take 1 Packet by mouth in the morning and 1 Packet before bedtime. 0 023 Discontinued(Samuel monique preference/disc ontinuation) Losartan Potassium 100 MG Oral Tablet (Cozaar) Take by mouth 1 Tablet in the morning. 90 Tablet 1 2 023 Discontinued hydroCHLOROthiazid e 12.5 MG Oral Capsule (Hydrodiuril) Take by mouth 1 Capsule in the morning. 90 Capsule 1 2 023 Discontinued(Re fill) Humira 40 MG/0.4ML Subcutaneous Prefilled Syringe Kit (Adalimumab) Inject 0.4 mL under the skin once a week. 0.4 mL 0 2 023 Discontinued(Re fill) Escitalopram Oxalate 20 MG Oral Tablet (Lexapro)Indicatio ns:STEPHANIE (generalized anxiety disorder) Take 1 Tablet (20 mg) by mouth in the morning. 90 Tablet 1 2 023 Discontinued(Me dication/Dose Changed) Sucralfate 1 GM/10ML Oral Suspension (Carafate) Take 10 mL (1,000 mg) by mouth in the morning and 10 mL (1,000 mg) at noon and 10 mL (1,000 mg) in the evening and 10 mL (1,000 mg) before bedtime. 900 mL 2 2 023 Discontinued(Re fill) Pantoprazole Sodium 40 MG Oral Tablet Delayed Release (Protonix)Indicati ons:Paroxysmal atrial fibrillation (HCC),Gastroesopha geal reflux disease without esophagitis Take 1 Tablet (40 mg) by mouth in the morning and 1 Tablet (40 mg) before bedtime. 180 Tablet 1 2 023 Discontinued(Re fill) Armodafinil 250 MG Oral Tablet (Nuvigil)Indicatio ns:Fibromyalgia,Ch ronic fatigue syndrome Take 1 Tablet (250 mg) by mouth in the morning. 90 Tablet 0 2 023 Discontinued(Re fill) Hospital, Clinic, or Other Facility Administered Medication Ordered Dose Route Frequency Start Date End Date Status Albuterol Sulfate (Proventil) (5 MG/ML) 0.5% *conc* inhalation solution 2.5 mgIndications:SOB (shortness of breath) 2.5 mg NEBULIZER PRN 11/07/2021 11/07/2022 End ed Albuterol Sulfate (Proventil) (2.5 MG/3ML) 0.083% inhalation solution 2.5 mgIndications:SOB (shortness of breath) 2.5 mg NEBULIZER PRN 11/07/2021 11/07/2022 End ed documented as of this encounter (statuses as of 08/14/2023) Active Problems Problem Noted Date Diagnosed Date [...] as of this encounter (statuses as of 08/14/2023) Resolved Problems Problem Noted Date Diagnosed Date [...] home patient encounter 02/29/2020 03/24/2023 Overview: Sees: [place] Arthritis (Dr Carias), Dr Matute, Alfred Caballero (spinal stim), Dr Ortiz [facility] ortho. 11/22 EGD [facility] -gastritis. -TTE normal EF. LAE/CARMELINA, [...] as of this encounter (statuses as of 08/14/2023) Immunizations Name Administration Dates Next Due COVID-19 [...] encounter Miscellaneous Notes * Telephone Encounter - Katy Mccormick, ARTHUR - 08/14/2023 6:09 PM EST Pt seen by Dr Ofe Toure on 04/08/23. * Telephone Encounter - Kym Alonso CRNP - 09/06/2022 3:17 PM EST Please set up appt for 2 months * Telephone Encounter - Kym Alonso CRNP - 08/12/2022 9:56 AM EST Please have her make an appt 2-3 months from now! Thanks * Telephone Encounter - Kym Alonso CRNP - 08/09/2022 1:26 PM EST Please call patient and update her with my message documented in this encounter Plan of Treatment Upcoming Encounters Date Type Department Care Team (Late st Contact Info) Description 08/21/2023 1:40 PM EST Office Visit Family Medicine [address] [place] [phone] Gurwinder Sherwood MD [address] [place] [address] [place] [address] 08/25/2023 3:40 PM EST Office Visit Pulmonary Medicine, [facility] [address] [facility] [place] [address] Gerard Ramos MD [address] [place] [address] 10/10/2023 1:00 PM EST Office Visit Sleep Disorders [facility] [address] [facility] [place] [phone] Ofe Toure, 132 [facility] [place] [address] 10/28/2023 10:40 AM EDT Office Visit Rheumatology [address] [place] [address] Roberth Roy MD [address] [place] [address] [place] [address] 11/18/2023 2:00 PM EDT Office Visit Ophthalmology, [facility] [address] [facility] [place] [address] Timur Roque, DO [address] [place] [address] 02/04/2024 1:50 PM EDT Office Visit Family Medicine [address] [place] [phone] Ernestina Swanson DO [address] [place] [address] [place] [address] Health Maintenance Due Date Last Done Comments Alpha-1 Antitrypsin 1960 Zoster Vaccines (1 of 2) 1961 *BISPHONATE OR OTHER ACCEPTABLE MEDICATION NEEDED FOR OSTEOPOROSIS (REFER TO SMARTSET #1146) 03/03/2020 COVID-19 Vaccine (3 - Pfizer risk series) 05/15/2021 04/17/2021, 03/27/2021 Depression Screening 06/04/2022 06/04/2021, 01/01/20 18 Albumin/Creatinine Ratio 04/09/2023 04/09/2022 CKD PHOS USE SMARTSET 00583 04/09/20230 01/2022, 07/21/2014, 12/17/2012 GFR 10/24/2023 04/25/2023, 02/02, 02/24/2023, Additional history exists TSH 11/13/2023 11/12/2022, 01/2022, 01/05/2021, Additional history exists CKD HGB USE SMARTSET 47385 04/25/202404/25, 04/25/2023, 03/19/2023, Additional history exists O2 [...] D LEVEL ONCE IN A LIFETIME-USE SMARTSET# 03181 Completed 04/25/2023, 01/25/2022, 01/14/2019, Additional history exists [...] this encounter Medical Devices Implanted Type Area Retail Field Representative Device Identifier Shelf Expiration Date Model / Serial / Lot Alloderm 2x4cm [id number] (8 Units) - [id number] Implanted:Qty : 8 on 05/25/2015 by Ambrose Mullen MD at [facility] Tissue - Human N/A: Esophagus LIFE CELL AQUILINO 01/01/2017 [id number] / / [id number] Mesh Pelvic Gynamesh Gpsl - [id number] Implanted:Qty : 1 on 06/01/2008 at [facility] Bilateral: Pelvis AICHA & AICHA 08/04/2012 GPSL / / [id number] Clip Quick 2.8mm 230cm - [id number] Implanted:Qty : 3 on 04/10/2021 by Belinda Parikh MD at ENDOSCOPY [facility] Colon [employer] 05/03/2022 [id number]-[id number]. A / / documented as of this encounter Visit Diagnoses Diagnosis ARTHUR (obstructive sleep apnea)- Primary Obstructive sleep apnea (adult) (pediatric) documented in this encounter Advance Directives Documents on File Type Date Recorded Patient Technical Writer Expl anation Advance Directives and Living Will 03/29/2008 Latest Code Status on File Code Status Date Activated Date Inactivated Comments Full Code 11/28/2021 3:33 PM 11/30/2021 3:14 PM Question Answer Comments Discussion of Advance Direct jeremiah occurred with: Not Discussed Does the patient have a Living Will? No Does the patient have Health Care Power of Product Designer? No Code Status History Code Status Date Activated Date Inactivated Comments Full Code 05/25/2015 7:17 PM 05/27/2015 5:03 PM Thi s order reflects the patients wishes and were consensually agreed upon. Full Code 05/25/2015 1:12 PM 05/25/2015 7:17 PM Thi s order reflects the patients wishes and were consensually agreed upon. Full Code 06/01/2008 4:58 PM 06/02/2008 8:10 PM Care Teams Regulatory Leader Relationship Specialty Start Date End Date Ernestina Swanson DO [address] [place] [address] [place] [address] PCP - General Internal Medicine 06/11/23 documented as of this encounter
--- OUTSIDE RECORDS SUMMARY | 2023-09-30 23:25 | External Medical Summary | Summary of Care ---
Author Name Unknown Organization [facility] Address [address] [place] [address] Phone [phone] Care Team Providers Care Calender Inspector Name Role Phone Ernestina Swanson Primary Care Provider [phone] Reason for Visit * Reason Onset Date Comments Precert In Process 07/16/2023 [facility] jazmyne Knutson Encounter Details Date Type Department Care Team (Late st Contact Info) Description 07/16/2023 Telephone Rheumatology [facility] [address] [place] [address] [place] [address] Roberth Roy MD [address] [facility] [place] [address] Precert In Process ([facility] Medicare [place]... Allergies Active Allergy Reactions Criticality Noted Date [...] as of this encounter (statuses as of 08/06/2023) Medications Medication Sig Dispensed Refills Start Date [...] HCl 4 MG/0.1ML Nasal Liquid Administer 1 [place] into nostril. 0 3 Active Sennosides 8.6 [...] in 24 hours 30 Tablet 0 3 08/01/20 23 Discontinu ed(Refill) documented as of this encounter (statuses as of 08/06/2023) Active Problems Problem Noted Date Diagnosed Date [...] as of this encounter (statuses as of 08/06/2023) Resolved Problems Problem Noted Date Diagnosed Date [...] home patient encounter 02/29/2020 03/24/2023 Overview: Sees: [place] Arthritis (Dr Carias), Dr Matute, Alfred Caballero (spinal stim), Dr Ortiz [facility] ortho. 11/22 EGD [facility] -gastritis. -TTE normal EF. LAE/CARMELINA, mild [...] as of this encounter (statuses as of 08/06/2023) Immunizations Name Administration Dates Next Due COVID-19 mRNA, LNP-s, No Pre serve, 2-Dose Series ([employer]) 04/17/2021,03/27/2021 Pneumococcal Conjugate Vacc, 13 Valent (Prevnar) [...] encounter Miscellaneous Notes * Telephone Encounter - Jennifer Downing OSA - 08/06/2023 12:03 PM EST Called pt to schedule PROLIA shot and was told by son she was admitted to [facility] on 08-05-23 * Telephone Encounter - Shalom Campoverde OSA - 07/23/2023 1:36 PM EST I left message on pt home machine to call me back to make appt * Telephone Encounter - Saba Stoner LPN - 07/21/2023 11:11 AM EST Please call and schedule this patient for an appointment with the [facility] Nurse clinic in for Prolia Thank you! * Telephone Encounter - Saba Stoner LPN - 07/21/2023 11:10 AM EST Drug name: PROLIA [facility] code(s): J0897 AUTH #: [id number] Valid auth start date: 07/17/2023 Valid auth end date: 07/17/2024 Location: [facility] # of Visits: 2 Billing Units Approved: 2 Diagnosis Code(s): M81.0 Medical Necessity: MEETS Clinic Stock: YES * Telephone Encounter - Zenia Goldberg OSA - 07/17/2023 1:11 PM EST Auth submitted to optum Waiting for approval fax * Telephone Encounter - Roberth Roy MD - 07/16/2023 5:11 PM EST Can we look into coverage for Prolia for osteoporosis. Recent right humerus fracture. Had received 7 doses of Reclast in the past. Had labs in April which are normal so okay to start Prolia once approved. documented in this encounter Plan of Treatment Upcoming Encounters Date Type Department Care Team (Late st Contact Info) Description 08/25/2023 3:40 PM EST Office Visit [facility], [facility] [address] [facility] [place] [address] Gerard [facility] [address] [facility] [address] 10/10/2023 1:00 PM EST Office Visit Sleep Disorders Ctr [facility] [address] [facility] [place] [phone] Ofe Toure DO [address] [facility] [place] [address] 10/28/2023 10:40 AM EDT Office Visit Rheumatology [address] [place] [address] Roberth Roy MD [address] [place] [address] [place] [address] 11/18/2023 2:00 PM EDT Office Visit Ophthalmology, [facility] [address] [place] [address] Timur Roque, [address] [place] [address] 02/04/2024 1:50 PM EDT Office Visit Family Medicine [address] [phone] [place] [address] Health Maintenance Due Date Last Done Comments Alpha-1 Antitrypsin 1960 Zoster Vaccines (1 of 2) 1961 *BISPHONATE OR OTHER ACCEPTABLE MEDICATION NEEDED FOR OSTEOPOROSIS (REFER TO SMARTSET #1146) 03/03/2020 COVID-19 Vaccine (3 - Pfizer risk series) 05/15/2021 04/17/2021, 03/27/2021 Depression Screening 06/04/2022 06/04/2021, 01/01/20 18 Albumin/Creatinine Ratio 04/09/2023 04/09/2022 CKD PHOS USE SMARTSET 70809 04/09/2023 09/0 01/2022, 07/21/2014, 12/17/2012 GFR 10/24/2023 04/25/2023, 02/02, 02/24/2023, Additional history exists TSH 11/13/2023 11/12/2022, 090 01/2022, 01/05/2021, Additional history exists CKD HGB USE SMARTSET 26311 04/25/202404/25, 04/25/2023, 03/19/2023, Additional history exists O2 [...] D LEVEL ONCE IN A LIFETIME-USE SMARTSET# 32734 Completed 04/25/2023, 01/25/2022, 01/14/2019, Additional history exists [...] this encounter Medical Devices Implanted Type Area Hydraulic Bull Riveter Operator Device Identifier Shelf Expiration Date Model / Serial / Lot Alloderm 2x4cm [id number] (8 Units) - [id number] Implanted:Qty : 8 on 05/25/2015 by Ambrose Mullen MD at OR [facility] Tissue - Human N/A: Esophagus [employer] 01/01/2017 [id number] / / [id number] Mesh Pelvic Gynamesh Gpsl - [id number] Implanted:Qty : 1 on 06/01/[address] [facility] Bilateral: Pelvis AICHA & AICHA 08/04/2012 GPSL / / [id number] Clip Quick 2.8mm 230cm - [id number] Implanted:Qty : 3 on 04/10/2021 by Belinda Parikh MD at ENDOSCOPY [facility] Colon [employer] 05/03/2022 [id number]-[id number]. A / / documented as of this encounter Advance Directives Documents on File Type Date Recorded Patient Elevator Technician Expl anation Advance Directives and Living Will 03/29/2008 Latest Code Status on File Code Status Date Activated Date Inactivated Comments Full Code 11/28/2021 3:33 PM 11/30/2021 3:14 PM Question Answer Comments Discussion of Advance Direct jeremiah occurred with: Not Discussed Does the patient have a Living Will? No Does the patient have Health Care Power of Director Of Primary Care? No Code Status History Code Status Date Activated Date Inactivated Comments Full Code 05/25/2015 7:17 PM 05/27/2015 5:03 PM Thi s order reflects the patients wishes and were consensually agreed upon. Full Code 05/25/2015 1:12 PM 05/25/2015 7:17 PM Thi s order reflects the patients wishes and were consensually agreed upon. Full Code 06/01/2008 4:58 PM 06/02/2008 8:10 PM Care Teams Calender Inspector Relationship Specialty Start Date End Date Ernestina Swanson DO [address] [place] [address] [place] [address] PCP - General Internal Medicine 06/11/23 documented as of this encounter
--- OUTSIDE RECORDS SUMMARY | 2023-09-30 23:25 | External Medical Summary | Summary of Care ---
Author Name Unknown Organization [facility] Address [address] [place] [address] Phone [phone] Care Team Providers Care Fire Control Officer Name Role Phone Ernestina Swanson DO Primary Care Provider Reason for Visit * Reason Onset Date Comments Med Request 07/30/2023 Encounter Details Date Type Department Care Team (Late st Contact Info) Description 07/30/2023 Telephone Neurology [facility] [address] [place], [place] [phone] Services, Scheduling [address] [place] [address] Med Request Allergies Active Allergy Reactions Criticality Noted Date [...] as of this encounter (statuses as of 08/05/2023) Medications Medication Sig Dispensed Refills Start Date [...] HCl 4 MG/0.1ML Nasal Liquid Administer 1 [place] into nostril. 0 3 Active Sennosides 8.6 [...] the morning. 90 Tablet 0 3 Active Lisinopril 10 MG Oral Tablet [...] as of this encounter (statuses as of 08/05/2023) Active Problems Problem Noted Date Diagnosed Date [...] as of this encounter (statuses as of 08/05/2023) Resolved Problems Problem Noted Date Diagnosed Date [...] home patient encounter 02/29/2020 03/24/2023 Overview: Sees: [place] [facility] (Dr Carias), Dr Matute, Alfred Caballero (spinal stim), Dr Ortiz [facility] ortho. 11/22 EGD [facility] -gastritis. -TTE normal EF. LAE/CARMELINA, [...] as of this encounter (statuses as of 08/05/2023) Immunizations Name Administration Dates Next Due COVID-19 [...] encounter Miscellaneous Notes * Telephone Encounter - Corine Jonas CPhT - 07/31/2023 10:16 AM EST Pt returning phone call and said she does need more Ativan - she has two left. Pt uses [id number] Pt said she is still very tired and dizzy and she does not know why. Please advise. Thank you, Corine Jonas CPht Power Shovel Operator II [facility] ([facility] (formerly [facility]) 07/31/2023, 10:16 AM * Telephone Encounter - Ernestina Swanson DO - 07/30/2023 4:17 PM EST Please call patient: Does she need more ativan? It looks like her script is likely gone since she was given a 30-day supply on 06/25/23. Please remind patient that she needs to get her controlled substances from only one doctor - therefore she needs to call me, not Dr. Rivers (or any other doctors) if she needs more. If she is having a mental health crisis, she can go to the nearest ER or call the crisis number. * Telephone Encounter - Melanie Skaggs LPN - 07/30/2023 3:48 PM EST Spoke with patient who states "my nerves a shot kiddo, I need something more than this ativan. I can't stand this. Somebody has to help me." She states she is very is anxious and has a headache. Asking for a new prescription or a nurse to return call. Dr. Swanson prescribed ativan and has been treating pt's anxiety/agitation. Routing this to pcp. * Telephone Encounter - Nela Jerez OSA - 07/30/2023 2:30 PM EST Pt requesting return call. States she is very depressed and does not have any medication and does not know what to do. Is requesting return call from Dr. Rivers's office Thank you documented in this encounter Plan of Treatment Upcoming Encounters Date Type Department Care Team (Late st Contact Info) Description 08/25/2023 3:40 PM EST [facility] [address] [address] Gerard Ramos MD [address] [facility] [place] [address] 10/10/2023 1:00 PM EST Office Visit Sleep Disorders Ctr [facility] [address] [place] [phone] Ofe Toure DO [address] [place] [address] 10/28/2023 10:40 AM EDT Office Visit Rheumatology [address] [place] [address] Roberth Roy MD [facility] [place] [address] 11/18/2023 2:00 PM EDT Office Visit Ophthalmology, [facility] [address] [place] [address] Timur Roque, DO [address] [place] [address] 02/04/2024 1:50 PM EDT Office Visit Family Medicine [address] [place] [phone] Ernestina Swanson[address] [place] [address] Health Maintenance Due Date Last Done Comments Alpha-1 Antitrypsin 1960 Zoster Vaccines (1 of 2) 1961 *BISPHONATE OR OTHER ACCEPTABLE MEDICATION NEEDED FOR OSTEOPOROSIS (REFER TO SMARTSET #1146) 03/03/2020 COVID-19 Vaccine (3 - Pfizer risk series) 05/15/2021 04/17/2021, 03/27/2021 Depression Screening 06/04/2022 06/04/2021, 01/01/20 18 Albumin/Creatinine Ratio 04/09/2023 04/09/2022 CKD PHOS USE SMARTSET 72333 04/09/2023 09/0 01/2022, 07/21/2014, 12/17/2012 GFR 10/24/2023 04/25/2023, 02/02, 02/24/2023, Additional history exists TSH 11/13/2023 11/12/2022, 0901/2022, 01/05/2021, Additional history exists CKD HGB USE SMARTSET 62557 04/25/202404/25, 04/25/2023, 03/19/2023, Additional history exists O2 [...] D LEVEL ONCE IN A LIFETIME-USE SMARTSET# 14516 Completed 04/25/2023, 01/25/2022, 01/14/2019, Additional history exists [...] this encounter Medical Devices Implanted Type Area De Icer Finisher Device Identifier Shelf Expiration Date Model / Serial / Lot Alloderm 2x4cm [id number] (8 Units) - [id number] Implanted:Qty : 8 on 05/25/2015 by Ambrose Mullen MD at OR [facility] Tissue - Human N/A: Esophagus [employer] 01/01/2017 [id number] / / [id number] Mesh Pelvic Gynamesh Gpsl - [id number] Implanted:Qty : 1 on 06/01/[address] [facility] Bilateral: Pelvis [employer] 08/04/2012 GPSL / / [id number] Clip Quick 2.8mm 230cm - [id number] Implanted:Qty : 3 on 04/10/2021 by Belinda Parikh MD at [facility] Colon [employer] 05/03/2022 [id number]. 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 No Does the patient have Health Care Power of Local Owner Operator Truck Driver? No Code Status History Code Status Date Activated Date Inactivated Comments Full Code 05/25/2015 7:17 PM 05/27/2015 5:03 PM Thi s order reflects the patients wishes and were consensually agreed upon. Full Code 05/25/2015 1:12 PM 05/25/2015 7:17 PM Thi s order reflects the patients wishes and were consensually agreed upon. Full Code 06/01/2008 4:58 PM 06/02/2008 8:10 PM Care Teams Fire Control Officer Relationship Specialty Start Date End Date Ernestina Swanson DO [address] [place] [address] [place] [id number] PCP - General Internal Medicine 06/11/23 documented as of this encounter
--- OUTSIDE RECORDS SUMMARY | 2023-09-30 23:25 | External Medical Summary | Summary of Care ---
Author Name Unknown Organization [facility] Address [address] [place] [address] Phone [phone] Care Team Providers Care Clinical Pharmacist Name Role Phone Ernestina Swanson DO Primary Care Provider Reason for Visit * Reason Onset Date Comments Med Request 07/30/2023 Encounter Details Date Type Department Care Team (Late st Contact Info) Description 07/30/2023 Telephone Neurology [facility] [address] [place], [place] [phone] Services, Scheduling [address] [place] [address] Med Request Allergies Active Allergy Reactions Criticality [...] HCl 4 MG/0.1ML Nasal Liquid Administer 1 [place] into nostril. 0 3 Active Sennosides 8.6 [...] home patient encounter 02/29/2020 03/24/2023 Overview: Sees: [place] [facility] (Dr Carias), Dr Matute, Alfred Caballero (spinal stim), Dr Ortiz [facility] ortho. 11/22 EGD [facility] -gastritis. -TTE normal EF. LAE/CARMELINA, mild MR, [...] Miscellaneous Notes * Telephone Encounter - Ernestina Swanson DO - 08/05/2023 12:50 PM EST Lorazepam sent 08/01/23. * Telephone Encounter - Corine Jonas CPhT - 07/31/2023 10:16 AM EST Pt returning phone call and said she does need more Ativan - she has two left. Pt uses [facility] [id number] Pt said she is still very tired and dizzy and she does not know why. Please advise. Thank you, Corine Jonas CPht Manifold Operator II [facility]) [...] 3:40 PM EST Office Visit Pulmonary Medicine, [facility] [address] [facility] [place] [address] Gerard Ramos MD [address] [place] [address] 10/10/2023 1:00 PM EST [facility] [place] [phone] Ofe Toure DO [address] [facility] [place] [address] 10/28/2023 10:40 AM EDT Office Visit Rheumatology [place] [phone] [facility] [place] [address] Roberth Roy MD [facility] [place] [address] 11/18/2023 2:00 PM EDT Office Visit Ophthalmology, [facility] [address] [place] [address] Timur Roque [address] [place] [address] 02/04/2024 1:50 PM EDT Office Visit Family Medicine [address] [place] [phone] Ernestina Swanson, [address] [place] [address] Health Maintenance Due Date Last Done Comments Alpha-1 Antitrypsin 1960 Zoster Vaccines (1 of 2) 1961 *BISPHONATE OR OTHER ACCEPTABLE MEDICATION NEEDED FOR OSTEOPOROSIS (REFER TO SMARTSET #1146) 03/03/2020 COVID-19 Vaccine (3 - Pfizer risk series) 05/15/2021 04/17/2021, 03/27/2021 Depression Screening 06/04/2022 06/04/2021, 01/01/20 18 Albumin/Creatinine Ratio 04/09/2023 04/09/2022 CKD PHOS USE SMARTSET 00225 04/09/2023 09/0 01/2022, 07/21/2014, 12/17/2012 GFR 10/24/2023 04/25/2023, 02/02, 02/24/2023, Additional history exists TSH 11/13/2023 11/12/2022, 090 01/2022, 01/05/2021, Additional history exists CKD HGB USE SMARTSET 08925 04/25/202404/25, 04/25/2023, 03/19/2023, Additional history exists O2 [...] D LEVEL ONCE IN A LIFETIME-USE SMARTSET# 87651 Completed 04/25/2023, 01/25/2022, 01/14/2019, Additional history exists [...] this encounter Medical Devices Implanted Type Area Blow Moulding Machine Operator Device Identifier Shelf Expiration Date Model / Serial / Lot Alloderm 2x4cm [id number] (8 Units) - [id number] Implanted:Qty : 8 on 05/25/2015 by Ambrose Mullen [place] [facility] Tissue - Human N/A: Esophagus [employer] 01/01/2017 [id number] / / [id number] Mesh Pelvic Gynamesh Gpsl - [id number] Implanted:Qty : 1 on 06/01/2008 at [facility] Bilateral: Pelvis [employer] 08/04/2012 GPSL / / [id number] Clip Quick 2.8mm 230cm - [id number] Implanted:Qty : 3 on 04/10/2021 by Belinda Parikh MD at ENDOSCOPY [facility] Colon [employer] 05/03/2022 [id number]. 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 No Does the patient have Health Care Power of High School History Teacher? No Code Status History Code Status Date Activated Date Inactivated Comments Full Code 05/25/2015 7:17 PM 05/27/2015 5:03 PM Thi s order reflects the patients wishes and were consensually agreed upon. Full Code 05/25/2015 1:12 PM 05/25/2015 7:17 PM Thi s order reflects the patients wishes and were consensually agreed upon. Full Code 06/01/2008 4:58 PM 06/02/2008 8:10 PM Care Teams Clinical Pharmacist Relationship Specialty Start Date End Date Ernestina Swanson DO [address] [place] [address] [place] [address] PCP - General Internal Medicine 06/11/23 documented as of this encounter
[2023-10-01] MEDS: CHECK fentaNYL PATCH PLACEMENT SCH (01:09)
[2023-10-01 01:39] LABS: Chol HDL Ratio 3.1 (0-5)
[2023-10-01 01:46] LABS: Troponin I High Sensitivity 10.8 pg/ml (0-14)
[2023-10-01] MEDS: LEVOTHYROXINE SODIUM 75 MCG TABLET PO SCH (05:30)
[2023-10-01 06:04] LABS: Appearance Urine Clear (Clear); Bilirubin Urine Negative (Negative); Blood Urine Negative (Negative); Color Urine Yellow; Glucose Urine UA Negative (Negative); Ketones Urine Negative (Negative); Leukocyte Esterase Urine Negative (Negative); Nitrite Urine Negative (Negative); Protein Urine Negative (Negative); Specific Gravity Urine > 1.045 (1.000-1.030); Urobilinogen Urine Negative (Negative)
[2023-10-01 07:19] LABS: Estimated Average Glucose 114 mg/dl; Hemoglobin A1C 5.6 % (4.5-5.6)
[2023-10-01] MEDS: PNEUMOCOCCAL VACCINE (PCV20) 20-VAL CONJ-DIP CRM/PF 0.5 ML SYR IM ONE (07:21)
[2023-10-01 07:26] LABS: Basophils # (auto) 0.04 K/uL (0.00-0.20); Basophils % (auto) 0.8 %; Immature Granulocytes # (auto) 0.02 K/uL (0.01-0.20); Immature Granulocytes % (auto) 0.4 %; Lymphocytes # (auto) 0.66 K/uL (1.20-3.40); Lymphocytes % (auto) 13.9 %; Mean Corpuscular Hemoglobin 31.2 pg (25.0-34.0); Mean Corpuscular Hgb Conc 32.5 g/dL (32.0-36.0); Mean Corpuscular Volume 95.9 fL (80.0-100.0); Mean Platelet Volume 11.4 fL (9.4-12.4); Monocytes # (auto) 0.04 K/uL (0.11-0.59); Monocytes % (auto) 0.8 %; Neutrophils # (auto) 3.99 K/uL (1.40-6.50); Neutrophils % (auto) 84.1 %; Platelet Count 222 K/uL (130-400); RDW Coefficient of Variation 13.5 % (11.5-14.5); RDW Standard Deviation 47.8 fL (36.4-46.3); Red Blood Count 4.17 M/uL (4.20-5.40); White Blood Count 4.75 K/ul (4.8-10.8)
[2023-10-01 08:25] LABS: Calcium 9.2 mg/dl (8.6-10.3); Magnesium 2.3 mg/dl (1.7-2.4); Potassium 4.7 mmol/L (3.5-5.1)
[2023-10-01 08:30] LABS: BUN Creatinine Ratio 27.6 (10-20); Creatinine Clr Calc Pharmacy 43.2 ml/min; Est GFR (African American) 85.9 ml/min; Est GFR (Non-African American) 74.1 ml/min; Phosphorus 4.5 mg/dl (2.5-4.9)
[2023-10-01] MEDS: CEROVITE ADV FORMULA TAB PO SCH (08:44)
[2023-10-01] MEDS: DULoxetine HCL 60 MG CAP PO SCH (08:44)
--- NOTE | 2023-10-01 09:09 | Neurology Consultation ---
Date of Consultation October 01, 2023 Assessment & Plan (1) Stroke-like symptoms: Plan 82 y/o female with history of depression, STEPHANIE, chronic pain syndrome, HTN, tachy-sheryl syndrome s/p pacemaker, paroxysmal atrial fibrillation, RA, and ARTHUR that presented with chest pain and later developed concern for dysarthria and possible leg weakness following receipt of benadryl for premedication for CT. She is s/p TNK. She has a history of paroxysmal atrial fibrillation and she indicates that she has not been able to tolerate multiple agents of anticoagulation, with [facility] planned for December of this year. Suspect daytime sleepiness may be at least partially related to sedating medications but pt also with a diagnosis of ARTHUR, for which she reports compliance with CPAP. She would benefit from follow-up with sleep medicine following discharge. Recommend proceeding with MRI brain and stroke work-up. 1. MRI brain 2. TTE 3. Hold antithrombotics until 24 hours post TNK 4. Atorvastatin [address]/PT/OT 6. Neurochecks per post TNK protocol then neurochecks q4 after 24 hours 7. BP < 180/105 post TNK 8. CPAP qhs 9. Sleep Medicine Follow-up 10. Cardiology F/U 11. Repeat CTH for any decline in neurological exam and re-engage neurology Telehealth Consultation Telehealth Information Telehealth Information: I performed this visit using a real-time telehealth connection between my location and the patients location ([facility]). After connecting through interactive tele-video, patient was identified by name and date of and/or wristband check.Patient (or authorized healthcare traveling sales representative) was informed that this was a telemedicine visit and it was being conducted confidentially over secure lines. My office door was closed and no one else was present in the room with me.Patient (or authorized healthcare traveling sales representative) provided consent to proceed with the visit, expressed an understanding of privacy and security of the telemedicine visit, and gave permission to have a hospital traveling sales representative in the room in order to assist with the visit and to conduct portions of the visit, as needed. I informed the patient (or authorized healthcare traveling sales representative) that I reviewed their record and presented the opportunity for them to ask any questions regarding the visit today. The patient agreed to participate. History of Present Illness Reason for Consultation: aphasia s/p TNK Requesting Physician: Issa Oconer Attending Physician: Maximo Pandey MD History of Present Illness 82 y/o right handed female that presented to the ED on yesterday with chest pain. She states that for the last three years she has been sleepy and tired. She also states that she has had chest pain intermittently for a long time but on yesterday it was accompanied by difficulty breathing, which prompted her to seek evaluation in the ED. She states that she remembers being taken for a scan and taking pill but then otherwise does not remember anything until being her room after TNK. This morning, she reports that she is tired and she has abdominal pain. She states that she has been experiencing this abdominal pain for years. She has a prior diagnosis of paroxysmal atrial fibrillation and she states that she was unable to tolerate eliquis due to headache. She states that she also tried other medications for anticoagulation but she was unable to tolerate them. She is scheduled for [facility] in December. She has chronic headache and she also has chronic numbness/tingling numbness in her hands and feet. She follows with a neurologist and is treated with botox for her headaches. She had a headache yesterday but denies headache today. She also has intermittently had diplopia for months which resolved when she covers the right eye. She states that she has been evaluated by her eye doctor for this. She has generalized weakness but denies any focal weakness. She states that on yesterday her daughter was concerned that her speech was slurred after she received medication but she otherwise denies any speech changes. Allergies Allergy/AdvReac Type Severity Reaction Status Date / Time bee venom protein (honey bee) Allergy Severe "SWELLED Verified 08/05/23 18:47 ALL UP" Iodinated Contrast Media Allergy Intermediate PASSED Verified 08/05/23 18:47 OUT-BODY FELT COLD ALL OVER venlafaxine Allergy Unknown Unknown Verified 08/05/23 18:47 atorvastatin AdvReac Intermediate PAIN IN Verified 08/05/23 18:47 JOINTS gabapentin AdvReac Intermediate HORRIBLE Verified 08/05/23 18:47 HEADACHES rosuvastatin [From Crestor] AdvReac Intermediate PAIN IN Verified 08/05/23 18:47 JOINTS shellfish derived AdvReac Intermediate Headache Verified 08/05/23 18:47 Home Medications Medication Instructions Recorded Confirmed Type calcium 650 mg-vitamin D3 12.5 2 tab PO DAILY 03/05/19 09/30/23 History mcg-vitamin K 40 mcg chewable tablet (Viactiv) levothyroxine 75 mcg tablet 75 mcg PO Q2D 11/02/20 09/30/23 History hydrocodone 10 mg-acetaminophen 1 tab PO Q4 PRN Pain 01/30/21 09/30/23 History 325 mg tablet levothyroxine 50 mcg tablet 50 mcg PO Q2D 01/30/21 09/30/23 History lorazepam 0.5 mg tablet 0.5 mg PO BID Anxiety 01/30/21 09/30/23 History pantoprazole 40 mg tablet,delayed 40 mg PO BID 01/30/21 09/30/23 History release dicyclomine 10 mg capsule 10 mg PO QID Abdominal Pain 04/11/22 09/30/23 History adalimumab 40 mg/0.8 mL 40 mg subcut WK 04/12/22 09/30/23 History subcutaneous syringe kit (Wigix) mv-mn-folic 200 mcg-vit K 15 1 cap PO BID 10/21/22 09/30/23 History mcg-lutein 5 mg-zeaxanthin 1 mg capsule (PreserVision AREDS 2 Plus Multivit) polyethylene glycol 3350 17 gram 17 g PO UD PRN Constipation 10/21/22 09/30/23 History oral powder packet (Miralax) metoprolol succinate 25 mg 25 mg PO QAM 11/18/22 09/30/23 History tablet,extended release 24 hr fentanyl 25 mcg/hr transdermal 1 patch transdermal Q72H 05/14/23 09/30/23 History patch sucralfate 100 mg/mL oral 5 ml PO DAILY PRN Abdominal Pain 05/14/23 09/30/23 History suspension biotin 10,000 mcg capsule 10,000 mcg PO QPM 06/11/23 09/30/23 History multivitamin-ferrous 1 tab PO QAM 06/11/23 09/30/23 History fumarate-folic acid 18 mg-400 mcg tablet (Centrum) duloxetine 60 mg capsule,delayed 60 mg PO DAILY 09/30/23 09/30/23 History release famotidine 20 mg tablet 20 mg PO BID 09/30/23 09/30/23 History furosemide 20 mg tablet 20 mg PO DAILY 09/30/23 09/30/23 History lisinopril 10 mg tablet 10 mg PO QAM 09/30/23 09/30/23 History sucralfate 100 mg/mL oral 1 g PO QID 09/30/23 09/30/23 History suspension Patient History Medical History STEPHANIE (generalized anxiety disorder) Major depressive disorder, recurrent, severe without psychotic features Chronic pain syndrome sees specialist in [place] History of pelvic fracture 04/2023, due to a fall Anxiety Depression Hx of fall ~02/2023, flown to [facility] in [facility], fx ribs 7-10 and punctured her left lung-had chest tube placed>in hospital for 3-4 days>rib fx have all healed ~04/2023, found pelvic fracture during hip x-ray ~05/30/23>still has bruising on different areas of her body, "cracked the ball joint bone in my right shoulder" and laceration of her arm has had multiple falls over the years Lumbar spondylosis On home oxygen therapy 2 LPM in day 4 LPM at >prn Spinal cord stimulator status removed History of COVID-19 10/28/22 > hospitalized at [facility] > loss of taste and smell, cough, fatigue>still fatigued Basal cell carcinoma REMOVED HTN (hypertension) Tachy-sheryl syndrome Urge incontinence of urine Nutcracker esophagus Pancreatic insufficiency Shortness of breath with activity Paroxysmal atrial fibrillation pacer > follows with Dr. Calvillo in [place] > no thinners can't tolerate per pt Pacemaker Medtronic > placed November 2020, [facility] > placed for Afib; f/u dr. calvillo [place] JUDI (iron deficiency anemia) Dyslipidemia History of skin cancer removed GERD (gastroesophageal reflux disease) Scoliosis Age related osteoporosis Fibromyalgia Hx of sleep apnea cpap History of concussion MAY 2018 - 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 GETS HEADACHES FROM and falls Rheumatoid arthritis Osteoarthritis Hypothyroidism Surgical History History of eye surgery LASER History of bilateral cataract extraction History of colonoscopy History of total left knee replacement History of rectocele REPAIR WITH MESH AND MESH SINCE REMOVED History of laparoscopic cholecystectomy History of right knee surgery bursa sac removed History of lumbar fusion History of endoscopy DILATION OF ESOPHAGUS History of repair of hiatal hernia History of cardiac cath 2018..CHEST PAIN...ALTOONA - NO FINDINGS...HIATAL HERNIA DX S/P repair of paraesophageal hernia History of partial colectomy S/P lumbar fusion History of repair of right rotator cuff History of bladder suspension procedure History of appendectomy History of partial hysterectomy Family History Sister Colorectal cancer Hypertension Mother Stroke Hypertension Other No pertinent family history Social History Smoking Status: Never smoker Second Hand Exposure: No; Do You Dip or Chew Tobacco: No; Hx Alcohol Use: No Hx Substance Use: No Preferred Language: Mauritanian Communication Ability: Effective Visual Impairment: No Limitations Hearing Ability: Normal Apparel Pattern Maker Required: No Beliefs That Will Affect Care: Evangelical marital status: Current Living Situation: Family Current Living Situation Comment: current occupational status: retired Feels Safe at Home: Yes Gender Identity: Female Assistive Devices: Cane, Denture - Upper, Denture - Lower, Glasses and Walker Physical Exam AAO X 3 No aphasia or dysartria VFF grossly intact EOMI, no nystagmus Facial sensations intact No facial asymmetry Tongue protrudes midline Motor: Moves all four extremities antigravity, no drift Sensation: Decreased sensation to light touch in left arnold face and left lower extremity No extinction Cerebellar: FTN intact on left, limited on right due to limtation of shoulder movement NIHS 1 Results & Data Vital Signs (Past 12 Hours) Vital Signs Temp Pulse Pulse Resp BP BP Pulse Ox 10/01/23 08:00 36.7 C 67 16 101/54 L 98 10/01/23 07:00 36.8 C 70 20 104/57 L 97 10/01/23 06:00 36.5 C 62 17 107/58 L 97 10/01/23 05:00 36.5 C 68 18 103/58 L 98 10/01/23 04:00 36.5 C 67 17 110/58 L 98 10/01/23 03:00 36.7 C 68 19 109/64 97 10/01/23 02:30 36.5 C 68 20 114/69 95 10/01/23 02:00 36.5 C 64 18 114/71 96 10/01/23 01:30 36.8 C 70 18 106/66 96 10/01/23 01:00 37 C 60 20 148/90 H 10/01/23 00:30 37 C 60 24 142/90 H 98 02/28/24 00:00 36.7 C 66 23 124/63 97 09/30/23 23:30 36.8 C 70 22 108/60 98 09/30/23 23:08 67 09/30/23 23:00 36.5 C 64 19 112/66 96 09/30/23 22:30 81 21 95 09/30/23 22:30 119/60 09/30/23 22:30 36.8 C 68 27 H 119/60 92 09/30/23 22:00 119/60 09/30/23 22:00 95 H 22 92 09/30/23 22:00 36.7 C 78 18 119/60 94 09/30/23 21:30 86 19 92 09/30/23 21:30 128/75 09/30/23 21:30 36.5 C 89 20 128/70 92 09/30/23 21:12 09/30/23 21:11 89 09/30/23 21:11 78 21 09/30/23 21:11 149/76 H 09/30/23 21:09 81 17 O2 Del Method O2 Flow Rate 10/01/23 08:00 Nasal Cannula 2 10/01/23 07:00 Nasal Cannula 2 10/01/23 06:00 Nasal Cannula 2 10/01/23 05:00 Nasal Cannula 2 10/01/23 04:00 Nasal Cannula 2 10/01/23 03:00 Nasal Cannula 2 10/01/23 02:30 Nasal Cannula 2 10/01/23 02:00 Nasal Cannula 2 10/01/23 01:30 Nasal Cannula 2 10/01/23 01:00 Nasal Cannula 2 10/01/23 00:30 Nasal Cannula 2 10/01/23 00:00 Nasal Cannula 2 09/30/23 23:30 Nasal Cannula 2 09/30/23 23:08 09/30/23 23:00 Nasal Cannula 2 09/30/23 22:30 09/30/23 22:30 Room Air 09/30/23 22:30 Room Air 09/30/23 22:00 Room Air 09/30/23 22:00 Room Air 09/30/23 22:00 Room Air 09/30/23 21:30 Room Air 09/30/23 21:30 Room Air 09/30/23 21:30 Room Air 09/30/23 21:12 Room Air 09/30/23 21:11 09/30/23 21:11 09/30/23 21:11 09/30/23 21:09 Laboratory Results WBC 4.75, HGB 13.0, HCT 40.0, Plts 222, INR 1.0, AD Dimer 4090, NA 139, Potassium 4.7, Chloride 107, Carbon Dioxide 21, BUN 21, Creatinine 0.76, Glucose 143, A1C 5.6, agnesium 2.3, Total bilirubin 0.5, AST 25, ALT 19, Troponin 10.8, LDL 104, Urinalysis negative leukocyte esterase negative nitrite. Diagnostic Findings CXR: Cardiomegaly and cardiac pacemaker without radiographic evidence of conge stive failure.No airspace consolidation or large pleural effusion is identified. Chest CTA:1. Streak and motion degraded examination. There is no evidence of pulmonary embolus in the main, lobar, or segmental pulmonary arteries. Cardiomegaly and cardiac pacemaker.There is no airspace consolidation or pleural effusion. Additional findings as above. CTH:There is no hemorrhage, mass effect, or evidence of acute territorial ischemia by CT criteria. CTA head/neck: Unremarkable CT angiogram of the brain. Unremarkable CT angiogram of the neck.
--- NOTE | 2023-10-01 09:54 | XRay Report ---
KUB CLINICAL HISTORY: MRI screening. FINDINGS: 2 AP, portable, supine abdominal radiographs are correlated with abdominal CT dated 10/31/19 23. There is a nonobstructed abdominal bowel gas pattern. Fecal retention is noted throughout the col on. There are no abnormal abdominal calcifications. Cholecystectomy clips are noted in the right uppe r quadrant. Surgical clips are again seen in the stomach. Excreted IV contrast fills the bladder. The heart is enlarged. The mitral annulus is densely calcified. A 2-lead cardiac pacemaker is in place. Skeletal the skeletal are osteopenic and appear intact. There is advanced lumbosacral spondylosis and scoliosis, with postsurgical change seen at the lumbosacral junction. IMPRESSION: 1. No acute abnormality is identified. 2. Surgical clips again seen is the stomach. 3. A cardiac pacemaker is in place. 4. No additional radiodense/metallic foreign body is identified. Electronically signed by: Alexi Avendano M.D. 10/01/2023 9:51 AM
--- NOTE | 2023-10-01 11:28 | Critical Care Progress Note ---
Date of Service October 01, 2023 Assessment & Plan (1) Acute CVA (cerebrovascular accident): Plan: Impression: 82-year-old female presents to the ICU following strokelike symptoms in which she received TNKase at 1900. Now admitted for post TNKase administration protocol. Neuro - Acute CVA?Dysarthria and weakness have resolved. -TNKase administered at 1900. Now admitted to ICU for post TNKase administration 24-hour monitoring per protocol -Follow-up TTE -Follow-up MRI -Neurology consulted Rheumatoid arthritiscontinue home meds when appropriate Major depressive disorders/anxietyappears to be stable. Continue home medication regimen when able to take p.o. Chronic pain syndromehold analgesics and other BREAKFAST HOSTESS depressant as patient is currently drowsy and would further compromise neurological exam. IV Tylenol as needed Cardiac - Acute chest painresolved. Patient had negative troponin x 2. CTA negative for PE. Monitor HTNlisinopril on hold for now. Monitor Respiratory - No history of pulmonary disease. Currently maintaining oxygen on room air without respiratory distress. Patient does appear drowsy on exam but airway not compromised. Continuous monitoring on pulse ox GI - Hiatal hernia/GERDIV PPI. Continue sulfur fate Advance diet as tolerated. Passed dysphagia screen. RENAL/LYTES - Creatinine within normal limits, monitor routine BMPs and replete electrolytes as indicated Continue IV fluid resuscitation while n.p.o. - Strict I's and O ENDO - No history of diabetes. Currently euglycemic. ICU hyperglycemic protocol Hypothyroidismcontinue Synthroid when able to take p.o. HEME - H&H stable, monitor for bleeding following thrombolytics administration. Monitor routine CBC ID - No indication for infectious process at this time LINES/IV ACCESS - Peripheral IVs DVT PROPHYLAXIS - SCDs, hold anticoagulation following TNKase administration Thank you for allowing us to participate in the care of this patient. Please refer to my attending physician's documentation for any further recommendations. (2) Precordial chest pain: (3) Rheumatoid arthritis: (4) Tachy-sheryl syndrome: (5) Hypothyroidism: (6) HTN (hypertension): (7) PAF (paroxysmal atrial fibrillation): (8) GERD (gastroesophageal reflux disease): (9) Major depressive disorder, recurrent, severe without psychotic features: (10) STEPHANIE (generalized anxiety disorder): Admission and Anticipated Discharge Date Admission Date: September 30, 2023 Subjective Her acute dysarthria and weakness have resolved. She denies any chest pain, fevers or chills. She has chronic pain in her hips and shoulders. Review of Systems Review of Systems: All systems reviewed & are unremarkable except as noted in HPI & below Physical Exam Constitutional: + frail appearing and + lethargic Eyes: PERRL, conjunctivae normal, anicteric sclerae ENMT: external ear and nose normal, oropharynx normal Neck: trachea midline, no thyromegaly Respiratory: normal respiratory effort, lungs clear to auscultation Cardiovascular: RRR, no murmur, no edema Heart Sounds: normal S1 and normal S2; no murmur Extremities: no edema Gastrointestinal (Abdomen): normal bowel sounds, soft, nontender, no hepatosplenomegaly Musculoskeletal: Extremities: extremities normal to inspection; no cyanosis Skin: no rashes, warm and dry Neurologic: moves all extremities Psychiatric: Orientation: alert and oriented x 3 Results & Data Results & Data Vital Signs (Past 12 Hours) Vital Signs Temp Pulse Resp BP Pulse Ox O2 Del Method O2 Flow Rate 10/01/23 10:00 36.6 C 85 18 104/61 93 Room Air 10/01/23 09:20 Room Air 10/01/23 09:00 36.6 C 68 18 110/67 93 Room Air 10/01/23 08:00 36.7 C 67 16 101/54 L 98 Nasal Cannula 2 10/01/23 07:00 36.8 C 70 20 104/57 L 97 Nasal Cannula 2 10/01/23 06:00 36.5 C 62 17 107/58 L 97 Nasal Cannula 2 10/01/23 05:00 36.5 C 68 18 103/58 L 98 Nasal Cannula 2 10/01/23 04:00 36.5 C 67 17 110/58 L 98 Nasal Cannula 2 10/01/23 03:00 36.7 C 68 19 109/64 97 Nasal Cannula 2 10/01/23 02:30 36.5 C 68 20 114/69 95 Nasal Cannula 2 10/01/23 02:00 36.5 C 64 18 114/71 96 Nasal Cannula 2 10/01/23 01:30 36.8 C 70 18 106/66 96 Nasal Cannula 2 10/01/23 01:00 37 C 60 20 148/90 H Nasal Cannula 2 10/01/23 00:30 37 C 60 24 142/90 H 98 Nasal Cannula 2 10/01/23 00:00 36.7 C 66 23 124/63 97 Nasal Cannula 2 09/30/23 23:30 36.8 C 70 22 108/60 98 Nasal Cannula 2 Coding Level of Care Code 25795 SUB INP/OBS CARE 2MIN Diagnoses Acute CVA (cerebrovascular accident) I63.9 Precordial chest pain R07.2 Rheumatoid arthritis M06.9 Rheumatoid arthritis location: unspecified site Rheumatoid factor presence: unspecified presence Tachy-sheryl syndrome I49.5 Hypothyroidism E03.9 HTN (hypertension) I10 PAF (paroxysmal atrial fibrillation) I48.0 GERD (gastroesophageal reflux disease) K21.9 Major depressive disorder, recurrent, severe without psychotic features F33.2 STEPHANIE (generalized anxiety disorder) F41.1 (3) Rheumatoid arthritis Rheumatoid arthritis location: unspecified site Rheumatoid factor presence: unspecified presence Qualified Code(s): M06.9 - Rheumatoid arthritis, unspecified
--- NOTE | 2023-10-01 13:52 | Magnetic Resonance Report ---
MRI OF THE BRAIN WITHOUT CONTRAST CLINICAL HISTORY: aphasia COMPARISON STUDY: MRI of the brain June 04, 2019. Head CT and CTA of the head September 30, 2023. TECHNIQUE: Utilizing a 1.5 Baylee magnet and dedicated coil, multiplanar, multiecho imaging of the bra in was performed without IV contrast. FINDINGS: There are no foci of restricted diffusion to suggest acute infarct. No acute intracranial h emorrhage, midline shift or mass effect is present. Ventricular system is stable since MRI of 2018. No intracranial masses identified on unenhanced exam. White matter T2 hyperintense foci ar e also similar to previous MRI. These favor small vessel disease. The appearance of the brain is unch anged. There are no extra-axial collections. Basal cisterns are patent. Trace fluid within the bilate ral mastoid air cells is present. A 9 mm T2 hyperintense right parotid nodule is unchanged since prev ious MRI. IMPRESSION: No acute intracranial findings. ACT 112: Negative or not required by law. Electronically signed by: Kwasi Muhammad M.D. 10/01/2023 1:51 PM
--- NOTE | 2023-10-01 14:15 | Hospitalist Progress Note ---
Date of Service October 01, 2023 Assessment & Plan (1) Aphasia: Plan: Possible CVA Status post TNKase administration Patient presented with Strokelike symptoms including slurring of speech. She received tPA at 7 PM on September 30 Admitted to ICU for closer monitoring Imaging studies as follows: Chest CTA personally reviewed; no PE. No acute findings. CT headno acute finding CTA head and neckno acute findings Brain MRIno acute intracranial findings Started on Lipitor 40 mg Goal blood pressure of less than 180/105 No thrombolytics until 24 hours post tPA TTE ordered PT OT eval Will need sleep medicine follow-up at discharge as per neurology recommendation chronic diastolic heart failure (EF 55 to 60%, TTE 2022), patient euvolemic to dry - on metoprolol, lisinopril at home. Currently on hold SSS status post PPM/recurrent PE- was on Eliquis. currently not on it. valvular heart disease (mild AR, trace TR) hypertension-on metoprolol, lisinopril at home; currently on hold chronic hypoxemic respiratory failure secondary to COPD on home O2 sleep apnea as per records-continue CPAP at night GERD/hiatal hernia status post surgery hypothyroidism, euthyroid as of last months TSH hx migraine, patient gets outpatient Botox injections hx rheumatoid arthritis, fibromyalgia hx somatization disorder/anxiety/mood disorder, patient not suicidal currently as per family DVT prophylaxis. SCDs while Eliquis on hold post TNKase Full code Time spent evaluating patient, direct bedside care, chart review, placing orders, interpretation of diagnostic studies, discussion with consultants, patient, and family members, as well as other required patient management activities is 50 minutes Please note the above document was generated using voice recognition software. It may contain grammatical, syntax or spelling errors. Any formal questions or concerns about the content, text or information contained within the body of this dictation should be directly addressed to the provider for clarification Admission and Anticipated Discharge Date Admission Date: September 30, 2023 Subjective Patient seen and examined at bedside. She reports that the slurring of speech has improved significantly. No problems swallowing. Denies any weakness/numbness Review of Systems Review of Systems: All systems reviewed & are unremarkable except as noted in Subjective Physical Exam 2 Physical Exam: Constitutional: Alert oriented x 3. Clear speech. Respiratory: normal respiratory effort, lungs clear to auscultation, no wheeze, rales, rhonchi. Normal insp/exp effort, no accessory muscle use Cardiovascular: RRR, no murmur, no edema Vessels: no JVD or carotid bruit Chest: normal inspection of chest Abdomen: normal bowel sounds, soft, nontender, no hepatosplenomegaly Musculoskeletal: no cyanosis or clubbing, extremities motor strength 5/5. Deformities on bilateral hands due to rheumatoid arthritis. Skin: no rashes, warm and dry normal turgor Neurologic: PERRL, EOMI, accommodation nl, no face palsy, grossly intact. No dysarthria Psychiatric: A+Ox3, euthymic affect Results & Data Results & Data Vital Signs (Past 12 Hours) Vital Signs Temp Pulse Resp BP Pulse Ox O2 Del Method O2 Flow Rate 10/01/23 13:27 36.7 C 78 16 128/67 94 Room Air 10/01/23 12:00 36.8 C 90 20 98/48 L 94 Room Air 10/01/23 11:00 36.8 C 85 22 93/53 L 95 Room Air 10/01/23 10:00 36.6 C 85 18 104/61 93 Room Air 10/01/23 09:20 Room Air 10/01/23 09:00 36.6 C 68 18 110/67 93 Room Air 10/01/23 08:00 36.7 C 67 16 101/54 L 98 Nasal Cannula 2 10/01/23 07:00 36.8 C 70 20 104/57 L 97 Nasal Cannula 2 10/01/23 06:00 36.5 C 62 17 107/58 L 97 Nasal Cannula 2 10/01/23 05:00 36.5 C 68 18 103/58 L 98 Nasal Cannula 2 10/01/23 04:00 36.5 C 67 17 110/58 L 98 Nasal Cannula 2 10/01/23 03:00 36.7 C 68 19 109/64 97 Nasal Cannula 2 10/01/23 02:30 36.5 C 68 20 114/69 95 Nasal Cannula 2
[2023-10-01] MEDS: ATORVASTATIN 40 MG TAB PO SCH (16:11)
[2023-10-01] MEDS: ACETAMINOPHEN 325 MG TAB PO PRN (17:29)
--- NOTE | 2023-10-01 19:20 | CT Scan Report ---
Exam(s): CT HEAD Without Contrast EXAM: CT Head Without Intravenous Contrast CLINICAL HISTORY: Reason for exam: Post TPA/TNK 24 hour. TECHNIQUE: Axial computed tomography images of the head/brain without intravenous contrast. CTDI is 35.5 mGy and DLP is 546.4 mGy-cm. Automated exposure control was utilized for the study. A dose lowering technique was utilized adhering to the principles of ALARA. COMPARISON: 10/01/2023 MRI brain FINDINGS: Brain: No hemorrhage, extra-axial fluid collection, mass effect, or edema. Atrophy and chronic microvascular ischemic changes. Ventricles: Unremarkable. Bones/joints: Unremarkable. No fracture. Soft tissues: Unremarkable. Sinuses: No acute sinusitis. Mastoid air cells: Unremarkable as visualized. IMPRESSION: 1. No acute intracranial abnormality. Electronically signed by: Estuardo Hernandez MD 10/01/23 19:19 PM
[2023-10-02 04:09] LABS: Basophils # (auto) 0.05 K/uL (0.00-0.20); Basophils % (auto) 0.6 %; Eosinophils # (auto) 0.17 K/uL (0.00-0.50); Eosinophils % (auto) 2.1 %; Hematocrit (blood only) 31.4 % (37.0-47.0); Hemoglobin 10.2 g/dl (12.0-16.0); Immature Granulocytes # (auto) 0.03 K/uL (0.01-0.20); Immature Granulocytes % (auto) 0.4 %; Lymphocytes # (auto) 2.54 K/uL (1.20-3.40); Lymphocytes % (auto) 31.3 %; Mean Corpuscular Hemoglobin 31.3 pg (25.0-34.0); Mean Corpuscular Hgb Conc 32.5 g/dL (32.0-36.0); Mean Corpuscular Volume 96.3 fL (80.0-100.0); Mean Platelet Volume 9.5 fL (9.4-12.4); Monocytes # (auto) 0.77 K/uL (0.11-0.59); Monocytes % (auto) 9.5 %; Neutrophils # (auto) 4.56 K/uL (1.40-6.50); Neutrophils % (auto) 56.1 %; Platelet Count 187 K/uL (130-400); RDW Coefficient of Variation 13.8 % (11.5-14.5); RDW Standard Deviation 49.1 fL (36.4-46.3); Red Blood Count 3.26 M/uL (4.20-5.40); White Blood Count 8.12 K/ul (4.8-10.8)
[2023-10-02 04:29] LABS: Calcium 8.9 mg/dl (8.6-10.3); Creatinine Clr Calc Pharmacy 35.3 ml/min; Est GFR (African American) 67.3 ml/min; Potassium 4.7 mmol/L (3.5-5.1)
[2023-10-02] MEDS: LEVOTHYROXINE SODIUM 50 MCG TABLET PO SCH (05:56)
[2023-10-02] MEDS: fentaNYL 25 MCG/HR TDSY TD SCH (08:38)
[2023-10-02] MEDS: FAMOTIDINE 20 MG TAB PO SCH (08:39)
[2023-10-02] MEDS: LORazepam 0.5 MG TAB PO PRN (10:26)
[2023-10-02] MEDS: METOPROLOL SUCC 25MG EXT REL TAB PO SCH (10:26)
[2023-10-02] MEDS: ASPIRIN 81 MG CHEW PO SCH (10:27)
[2023-10-02] MEDS: lisinopril 10 MG TAB PO SCH (10:27)
[2023-10-02] MEDS: FUROSEMIDE 20 MG TAB PO SCH (10:28)
--- NOTE | 2023-10-02 10:40 | Pharmacy Report ---
- Date of Service October 02, 2023 - Pharmacy CVA/TIA Medication Review Medications to Prevent Stroke handout has been added to the patients discharge packet. Antiplatelet(s) * Aspirin 81 mg daily Cholesterol * High intensity statin: atorvastatin 40 mg daily DVT Prophylaxis * Heparin SQ Therapeutic Anticoagulation * No history of Afib/Aflutter noted Type 2 Diabetes * Patient does not have T2DM
--- NOTE | 2023-10-02 12:18 | Hospitalist Progress Note ---
Date of Service October 02, 2023 Assessment & Plan (1) Aphasia: Plan: Possible CVA Status post TNKase administration Patient presented with Strokelike symptoms including slurring of speech. She received tPA at 7 PM on September 30 Admitted to ICU for closer monitoring Imaging studies as follows: Chest CTA personally reviewed; no PE. No acute findings. CT headno acute finding CTA head and neckno acute findings Brain MRIno acute intracranial findings Echocardiogram shows EF of 65 to 70%; mild concentric LVH Started on aspirin and Lipitor. PT OT eval Will need sleep medicine follow-up at discharge as per neurology recommendation chronic diastolic heart failure (EF 55 to 60%, TTE 2022), patient euvolemic to dry - on metoprolol, lisinopril at home. Restarted. SSS status post PPM/recurrent PE- was on Eliquis. currently not on it. valvular heart disease (mild AR, trace TR) hypertension-on metoprolol, lisinopril at home; resume chronic hypoxemic respiratory failure secondary to COPD on home O2 sleep apnea as per records-continue CPAP at night GERD/hiatal hernia status post surgery- Protonix bid hypothyroidism, euthyroid as of last months TSH hx migraine, patient gets outpatient Botox injections hx rheumatoid arthritis, fibromyalgiaon Humira; currently on hold. hx somatization disorder/anxiety/mood disorder-continue on home meds DVT prophylaxis. Heparin is started Full code Dispositionpatient admitted for possible CVA underwent thrombolytic treatment. Awaiting PT OT eval. Possible DC in next few days depending on clinical course. Time spent evaluating patient, direct bedside care, chart review, placing orders, interpretation of diagnostic studies, discussion with consultants, patient, and family members, as well as other required patient management activities is 50 minutes Please note the above document was generated using voice recognition software. It may contain grammatical, syntax or spelling errors. Any formal questions or concerns about the content, text or information contained within the body of this dictation should be directly addressed to the provider for clarification Admission and Anticipated Discharge Date Admission Date: September 30, 2023 Subjective Patient seen and examined at bedside. She is alert oriented x 3; not in distress. She is hemodynamically stable. No overnight events. Review of Systems Review of Systems: All systems reviewed & are unremarkable except as noted in Subjective Physical Exam Physical Exam: Constitutional: Alert oriented x 3. Clear speech. Respiratory: normal respiratory effort, lungs clear to auscultation, no wheeze, rales, rhonchi. Normal insp/exp effort, no accessory muscle use Cardiovascular: RRR, no murmur, no edema Vessels: no JVD or carotid bruit Chest: normal inspection of chest Abdomen: normal bowel sounds, soft, nontender, no hepatosplenomegaly Musculoskeletal: no cyanosis or clubbing, extremities motor strength 5/5. Defo rmities on bilateral hands due to rheumatoid arthritis. Skin: no rashes, warm and dry normal turgor Neurologic: PERRL, EOMI, accommodation nl, no face palsy, grossly intact. No dysarthria Psychiatric: A+Ox3, euthymic affect Results & Data Results & Data Vital Signs (Past 12 Hours) Vital Signs Temp Pulse Resp BP Pulse Ox O2 Del Method O2 Flow Rate 10/02/23 10:51 Nasal Cannula 2 10/02/23 10:50 136/72 97 2 10/02/23 10:50 36.3 C L 10/02/23 10:49 75 26 H 96 10/02/23 10:40 64 19 98 10/02/23 10:30 74 15 94 10/02/23 10:20 66 18 100 10/02/23 10:10 87 22 76 L 10/02/23 10:00 73 26 H 78 L 10/02/23 09:50 96 H 28 H 10/02/23 09:40 61 18 10/02/23 09:30 66 21 10/02/23 09:20 69 18 10/02/23 09:10 89 20 10/02/23 09:00 73 21 10/02/23 08:50 75 21 10/02/23 08:40 87 30 H 10/02/23 08:30 91 H 17 10/02/23 08:29 98 H 22 10/02/23 08:00 139/63 10/02/23 08:00 74 20 10/02/23 08:00 36.6 C 10/02/23 07:50 83 17 10/02/23 07:40 79 18 10/02/23 07:30 76 16 10/02/23 07:24 70 24 96 Nasal Cannula 2 10/02/23 07:24 144/51 H 10/02/23 07:00 60 18 98 10/02/23 06:50 60 10/02/23 06:14 36.9 C 60 14 163/81 H 97 Nasal Cannula 2 10/02/23 04:00 61 16 113/63 98 Nasal Cannula 2 10/02/23 03:00 63 19 99 Nasal Cannula 2 10/02/23 03:00 97/53 L 10/02/23 02:00 75 21 100 10/02/23 01:00 101/51 L 10/02/23 01:00 63 19 97 Nasal Cannula 2
--- NOTE | 2023-10-02 14:08 | Communication Note ---
Date of Service: 2023 Neurology update: 82 y/o female with history of of depression, STEPHANIE, chronic pain syndrome, HTN, tachy-sheryl syndrome s/p pacemaker, paroxysmal atrial f ibrillation, RA, and ARTHUR that presented with chest pain and later developed possible for dysarthria and weakness following receipt of benadryl for premedication for CT. In review of the telestroke documentation, at the time of her examination, there was concern for mild right upper and lower extremity weakness as well as aphasia/dysarthria. MRI brain and repeat CTH with no acute intracranial findings. TTE with EF 65-70%, no thrombus, moderately enlarged left atrium, and no interatrial shunt. LDL 104 and A1C 5.6. Likely Averted stroke vs medication effect. Given exam findings of possible focal weakness by telestroke neurologist as well as pt's multiple risk factors for stroke, likely reasonable to continue aspirin 81 mg and atorvastatin 40 mg, if pt agreeable. Pt unable to tolerate anticoagulation per patient and [facility] is planned for December. Continue CPAP qhs and neurochecks q4. Cardiology follow-up as well as outpatient neurology and sleep medicine follow-up.
[2023-10-02] MEDS: HEPARIN SOD 5,000 UNIT/0.5 ML VIAL SQ SCH (20:40)
[2023-10-03 04:35] LABS: Basophils # (auto) 0.05 K/uL (0.00-0.20); Basophils % (auto) 0.6 %; Eosinophils # (auto) 0.31 K/uL (0.00-0.50); Eosinophils % (auto) 3.6 %; Hematocrit (blood only) 31.8 % (37.0-47.0); Hemoglobin 10.7 g/dl (12.0-16.0); Immature Granulocytes # (auto) 0.03 K/uL (0.01-0.20); Immature Granulocytes % (auto) 0.3 %; Lymphocytes # (auto) 2.48 K/uL (1.20-3.40); Lymphocytes % (auto) 28.7 %; Mean Corpuscular Hemoglobin 31.4 pg (25.0-34.0); Mean Corpuscular Hgb Conc 33.6 g/dL (32.0-36.0); Mean Corpuscular Volume 93.3 fL (80.0-100.0); Mean Platelet Volume 9.3 fL (9.4-12.4); Monocytes # (auto) 0.84 K/uL (0.11-0.59); Monocytes % (auto) 9.7 %; Neutrophils # (auto) 4.94 K/uL (1.40-6.50); Neutrophils % (auto) 57.1 %; Platelet Count 172 K/uL (130-400); RDW Coefficient of Variation 13.7 % (11.5-14.5); RDW Standard Deviation 46.6 fL (36.4-46.3); Red Blood Count 3.41 M/uL (4.20-5.40); White Blood Count 8.65 K/ul (4.8-10.8)
[2023-10-03 04:46] LABS: BUN Creatinine Ratio 21.6 (10-20); Creatinine Clr Calc Pharmacy 34.1 ml/min; Est GFR (African American) 63.9 ml/min; Est GFR (Non-African American) 55.2 ml/min; Potassium 3.9 mmol/L (3.5-5.1)
[2023-10-03] MEDS: HYDROcodone/ACETAMINOPHEN 10/325 TAB PO PRN (06:22)
[2023-10-03] MEDS: STROKE PATIENT DISCHARGE STA (14:11)
--- NOTE | 2023-10-03 14:35 | Discharge Summary ---
Date of Service October 03, 2023 Admission HPI Per Admitting Provider History obtained from patient, family, and records. Limited history from patient secondary to disoriented state Medical history significant for chronic diastolic heart failure (EF 55 to 60%, TTE 2022), SSS status post PPM/recurrent PE on Eliquis, valvular heart disease (mild AR, trace TR), hypertension, chronic hypoxemic respiratory failure secondary to COPD on home O2, sleep apnea as per records, GERD status post surgery, hypothyroidism, skin cancer as per records, migraine, chronic pain on fentanyl patch, rheumatoid arthritis, fibromyalgia, somatization disorder, anxiety/mood disorder. Last confinement October 2022 for generalized weakness and acute renal failure. Recent ER visit last month for depression and suicidality. Patient discharged to psych unit at [facility] in [place]. Patient complained to family of left-sided chest pain and shortness of breath today. No unusual cough symptoms. Compliant with home medications. Patient brought to the ER for evaluation. Around 6 PM while waiting at the ER, patient seemed more confused and had trouble getting words out. Leg weakness as per ER provider. BSG noted to be 70 Stroke alert called. TNKase administered [place] [facility] [place]. 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 Admission Exam Per Admitting Provider GENERAL: Disoriented, restless, slightly uncomfortable, no respiratory distress SKIN: Normal color, warm HEENT: Bespectacled, [place] palpebral conjunctivae, no ptosis, dry buccal mucosa NECK : Supple, no tenderness CHEST : Decreased breath sounds, no tenderness HEART : RRR, no obvious murmurs ABDOMEN: no distention, nontender EXTREMITIES : No LE swelling/tenderness, no other conspicuous deformities noted NEUROLOGIC : Disoriented, no facial asymmetry, restless, no other gross focality Principal Diagnosis Possible CVA status post tPA Discharge Exam Constitutional: Alert oriented x 3. Clear speech. Respiratory: normal respiratory effort, lungs clear to auscultation, no wheeze, rales, rhonchi. Normal insp/exp effort, no accessory muscle use Cardiovascular: RRR, no murmur, no edema Vessels: no JVD or carotid bruit Chest: normal inspection of chest Abdomen: normal bowel sounds, soft, nontender, no hepatosplenomegaly Musculoskeletal: no cyanosis or clubbing, extremities motor strength 5/5. Deformities on bilateral hands due to rheumatoid arthritis. Skin: no rashes, warm and dry normal turgor Neurologic: PERRL, EOMI, accommodation nl, no face palsy, grossly intact. No dysarthria Psychiatric: A+Ox3, euthymic affect Discharge Data Allergies Allergy/AdvReac Type Severity Reaction Status Date / Time bee venom protein (honey bee) Allergy Severe "SWELLED Verified 08/05/23 18:47 ALL UP" Iodinated Contrast Media Allergy Intermediate PASSED Verified 08/05/23 18:47 OUT-BODY FELT COLD ALL OVER venlafaxine Allergy Unknown Unknown Verified 08/05/23 18:47 atorvastatin AdvReac Intermediate PAIN IN Verified 08/05/23 18:47 JOINTS gabapentin AdvReac Intermediate HORRIBLE Verified 08/05/23 18:47 HEADACHES rosuvastatin [From Crestor] AdvReac Intermediate PAIN IN Verified 08/05/23 18:47 JOINTS shellfish derived AdvReac Intermediate Headache Verified 08/05/23 18:47 Consultations 09/30/23 19:05 ED Decision to Admit Stat 09/30/23 21:11 Consult Recovery Rn Routine Consult Neurology Routine Ordered Studies 09/30/23 17:49 CT angio chest PE protocol Stat 09/30/23 18:08 CT angio head w con Stat CT angio neck with con Stat CT head/brain wo con Stat 10/01/23 00:00 MR brain wo con Routine 10/01/23 19:00 CT head/brain wo con Routine Hospital Course (1) Aphasia: Possible CVA Status post TNKase administration Patient presented with Strokelike symptoms including slurring of speech. She received tPA at 7 PM on September 30 She was then admitted to ICU for closer monitoring Imaging studies during the hospitalization as follows: Chest CTA personally reviewed; no PE. No acute findings. CT headno acute finding CTA head and neckno acute findings Brain MRIno acute intracranial findings Echocardiogram shows EF of 65 to 70%; mild concentric LVH She was started on aspirin and Lipitor as per neurology recommendation Patient underwent PT OT evaluation; recommended home. Patient to follow-up with PCP; obtain sleep study referral. No other medication changes were done for Please note the above document was generated using voice recognition software. It may contain grammatical, syntax or spelling errors. Any formal questions or concerns about the content, text or information contained within the body of this dictation should be directly addressed to the provider for clarification Total Time Total Time Spent Total Time Spent (In Minutes): 45 Total Time Includes: Examination of the Patient, Discharge Planning, Medication Reconciliation, Communication With Other Providers and Other Discharge Plan Discharge Items Patient Disposition: Home - Self-Care Reason For Visit: APHASIA SP TNK Discharge Diagnosis: Possible CVA status post tPA Activity: Resume your previous activity Non-emergency contact: Primary Care Provider Call non-emergency contact if: you have any medication questions and your symptoms worsen Follow-up/Referrals: Ernestina Swanson DO [Primary Care Provider] - (Date & Time 10/09/2023 11:20 AM Provider Janet Cabrera PA-C Department Family Medicine [facility] ) Diet: Regular Addtl Attending Provider Instructions: You were admitted to the hospital due to possible stroke and underwent thrombolysis. You were evaluated by neurology during the hospitalization. They recommend following medication: 1) Aspirin 81 mg once a day 2) Lipitor 40 mg once a day. An appointment will be set up with your primary care doctor. Please follow-up with them. Pending Studies at Discharge: No Stand-Alone Forms: My [employer], Smoking Cessation, Medications to Prevent Stroke Medications and DC Order Prescriptions: New atorvastatin 40 mg Tablet 40 mg PO QAM Qty: 30 0RF aspirin [Children's Aspirin] 81 mg Tablet,Chewable 81 mg PO DAILY Qty: 30 0RF Continued sucralfate 100 mg/mL suspension 5 ml PO DAILY PRN (Reason: Abdominal Pain) calcium-vitamin D3-vitamin K [Viactiv] 650 mg-12.5 mcg-40 mcg Tablet,Chewable 2 tab PO DAILY hydrocodone-acetaminophen 10-325 mg Tablet 1 tab PO Q4 PRN (Reason: Pain) lorazepam 0.5 mg Tablet 0.5 mg PO BID pantoprazole 40 mg Tablet,Delayed Release (Dr/Ec) 40 mg PO BID levothyroxine 50 mcg Tablet 50 mcg PO Q2D Rx Instructions: ALTERNATE WITH 75MCG PreserVision AREDS 2 Plus MV 200 mcg-15 mcg- 5 mg-1 mg Capsule 1 cap PO BID polyethylene glycol 3350 [Miralax] 17 gram powder in packet 17 g PO UD PRN (Reason: Constipation) metoprolol succinate 25 mg Tablet Extended Release 24 Hr 25 mg PO QAM biotin 10,000 mcg Capsule 10,000 mcg PO QPM Centrum 18-400 mg-mcg Tablet 1 tab PO QAM levothyroxine 75 mcg Tablet 75 mcg PO Q2D Rx Instructions: ALTERNATE WITH 50MCG dicyclomine 10 mg capsule 10 mg PO QID Humira 40 mg/0.8 mL Syringe Kit 40 mg SUBCUT WK Rx Instructions: SATURDAYS. fentanyl 25 mcg/hr patch 72 hour 1 patch transdermal Q72H lisinopril 10 mg tablet 10 mg PO QAM famotidine 20 mg tablet 20 mg PO BID sucralfate 100 mg/mL suspension 1 g PO QID duloxetine 60 mg capsule,delayed release(DR/EC) 60 mg PO DAILY furosemide 20 mg tablet 20 mg PO DAILY Discharge Orders: Discharge Order (Routine); Ordered 10/03/23 Ordered By: Maximo Pandey Admission Data Admit Date/Time: 09/30/23 20:05 Attending Provider: Maximo Pandey Admit Provider: Issa Jones Primary Care Provider: Ernestina Swanson Other Providers: Issa Jones; Roberth Mitchell; Charley Olivas; Ji Armenta; Charley Morrissey; Spencer Sahni; Gagan Licea; Willam Rivers; Ambrose Schulte; Ceci Herron; Patrice Nuñez; Rodri Hooks; Zeeshan Lopez; Darryl Hancock; Katy Goldberg; Alexus Leal; Ambrose Ramos Other Interventions: Discharge Summary Assessment (RN) Last Done: 10/03/23 09:51
--- NOTE | 2023-10-06 09:46 | Pharmacy Report ---
Pharmacist Stroke Counseling - Date of Service October 06, 2023 - Scope: Pharmacy has been consulted to provide medication discharge counseling for this patient admitted with ischemic stroke as per the Pharmacist Discharge Counseling for Stroke Patients Protocol. - Medications on Discharge: Home Medications Medication Instructions Recorded Confirmed calcium 650 mg-vitamin D3 12.5 2 tab PO DAILY 03/05/19 09/30/23 mcg-vitamin K 40 mcg chewable tablet (Viactiv) levothyroxine 75 mcg tablet 75 mcg PO Q2D 11/02/20 09/30/23 hydrocodone 10 mg-acetaminophen 1 tab PO Q4 PRN Pain 01/30/21 09/30/23 325 mg tablet levothyroxine 50 mcg tablet 50 mcg PO Q2D 01/30/21 09/30/23 lorazepam 0.5 mg tablet 0.5 mg PO BID Anxiety 01/30/21 09/30/23 pantoprazole 40 mg tablet,delayed 40 mg PO BID 01/30/21 09/30/23 release dicyclomine 10 mg capsule 10 mg PO QID Abdominal Pain 04/11/22 09/30/23 adalimumab 40 mg/0.8 mL 40 mg subcut WK 04/12/22 09/30/23 subcutaneous syringe kit (HumSeer) mv-mn-folic 200 mcg-vit K 15 1 cap PO BID 10/21/22 09/30/23 mcg-lutein 5 mg-zeaxanthin 1 mg capsule (PreserVision AREDS 2 Plus Multivit) polyethylene glycol 3350 17 gram 17 g PO UD PRN Constipation 10/21/22 09/30/23 oral powder packet (Miralax) metoprolol succinate 25 mg 25 mg PO QAM 11/18/22 09/30/23 tablet,extended release 24 hr fentanyl 25 mcg/hr transdermal 1 patch transdermal Q72H 05/14/23 09/30/23 patch sucralfate 100 mg/mL oral 5 ml PO DAILY PRN Abdominal Pain 05/14/23 09/30/23 suspension biotin 10,000 mcg capsule 10,000 mcg PO QPM 06/11/23 09/30/23 multivitamin-ferrous 1 tab PO QAM 06/11/23 09/30/23 fumarate-folic acid 18 mg-400 mcg tablet (Centrum) duloxetine 60 mg capsule,delayed 60 mg PO DAILY 09/30/23 09/30/23 release famotidine 20 mg tablet 20 mg PO BID 09/30/23 09/30/23 furosemide 20 mg tablet 20 mg PO DAILY 09/30/23 09/30/23 lisinopril 10 mg tablet 10 mg PO QAM 09/30/23 09/30/23 sucralfate 100 mg/mL oral 1 g PO QID 09/30/23 09/30/23 suspension New Rx's Medication Instructions Recorded aspirin 81 mg chewable tablet 81 mg PO DAILY #30 tabs 10/03/23 (Children's Aspirin) atorvastatin 40 mg tablet 40 mg PO QAM #30 tabs 10/03/23 - Action: The above medications, specifically ones for stroke treatment/prophylaxis, have been reviewed in detail with the patient and/or patient field representative(s) prior to discharge. This includes indication, common adverse reactions, drug interactions, and medication administration. Medication counseling has been employed using the teach-back method to ensure understanding. - Outcome: The patient and/or patient field representative(s) have demonstrated understanding of the medications. Additional comments: * Patient confirmed that she did pick up operator new medications, these were reviewed * Patient was with daughter at time of phone interview * Follow-up appointment scheduled with PCP * No obvious barriers to medication compliance noted Thank you for allowing pharmacy to be involved in the care of this patient. Please call [phone] with any additional questions
== END 2023-10-03 16:59 | disposition home or self-care (01) | DRG 62 ==
LOC: ED 12:07 → 1E 20:05

== ENCOUNTER 2024-05-07 05:23 | Observation (INO) ==
--- NOTE | 2024-04-01 09:14 | PAT Medication Instructions ---
Medication Instructions Date of Service April 01, 2024 Home Medications Medication Instructions Recorded atorvastatin 40 mg tablet 40 mg PO QAM #30 tabs 10/03/23 calcium 650 mg-vitamin D3 12.5 mcg-vitamin K 40 mcg chewable tablet (Viactiv) 1 tab PO BID levothyroxine 75 mcg tablet 75 mcg PO Q2D hydrocodone 10 mg-acetaminophen 325 mg tablet 1 tab PO Q4H PRN Pain levothyroxine 50 mcg tablet 50 mcg PO Q2D lorazepam 0.5 mg tablet 0.5 mg PO DAILY PRN Anxiety pantoprazole 40 mg tablet,delayed release 40 mg PO BID dicyclomine 10 mg capsule 10 mg PO QID PRN Abdominal Pain adalimumab 40 mg/0.8 mL subcutaneous syringe kit (Humira) 40 mg subcut Q7D mv-mn-folic 200 mcg-vit K 15 mcg-lutein 5 mg-zeaxanthin 1 mg capsule (PreserVision AREDS 2 Plus Multivit) 1 cap PO BID polyethylene glycol 3350 17 gram oral powder packet (Miralax) 17 g PO UD PRN Constipation metoprolol succinate 25 mg tablet,extended release 24 hr 25 mg PO QAM fentanyl 25 mcg/hr transdermal patch 1 patch transdermal Q72H sucralfate 100 mg/mL oral suspension 5 ml PO DAILY PRN Abdominal Pain Centrum 1 tab PO QAM duloxetine 60 mg capsule,delayed release 60 mg PO QAM famotidine 20 mg tablet 20 mg PO HS furosemide 20 mg tablet 20 mg PO QAM lisinopril 10 mg tablet 10 mg PO QAM atorvastatin 40 mg tablet 40 mg PO QAM aripiprazole 2 mg tablet 2 mg PO HS aspirin 81 mg chewable tablet 81 mg PO QAM clopidogrel 75 mg tablet 75 mg PO QAM collagen 1 dose PO QAM Continue as directed fentanyl 25 mcg/hr transdermal patch 1 patch transdermal Q72H (avoid placement near surgical site) levothyroxine 75 mcg tablet 75 mcg PO Q2D ASK your prescriber and surgeon adalimumab 40 mg/0.8 mL subcutaneous syringe kit (Humira) 40 mg subcut Q7D aspirin 81 mg chewable tablet 81 mg PO QAM clopidogrel 75 mg tablet 75 mg PO QAM (From anesthesia perspective, Clopidogrel/Plavix needs to be stopped 7 days before surgery. Please check if okay with doctor that prescribes this to you) STOP taking 2 weeks before surgery (or as soon as possible if surgery is within 2 weeks) mv-mn-folic 200 mcg-vit K 15 mcg-lutein 5 mg-zeaxanthin 1 mg capsule (PreserVision AREDS 2 Plus Multivit) 1 cap PO BID collagen 1 dose PO QAM DO NOT take the morning of surgery calcium 650 mg-vitamin D3 12.5 mcg-vitamin K 40 mcg chewable tablet (Viactiv) 1 tab PO BID dicyclomine 10 mg capsule 10 mg PO QID PRN Abdominal Pain polyethylene glycol 3350 17 gram oral powder packet (Miralax) 17 g PO UD PRN Constipation sucralfate 100 mg/mL oral suspension 5 ml PO DAILY PRN Abdominal Pain multivitamin-ferrous fumarate-folic acid 18 mg-400 mcg tablet (Centrum) 1 tab PO QAM furosemide 20 mg tablet 20 mg PO QAM lisinopril 10 mg tablet 10 mg PO QAM Take morning of surgery With a small sip of water, OTHERWISE NOTHING TO EAT OR DRINK AFTER MIDNIGHT: hydrocodone 10 mg-acetaminophen 325 mg tablet 1 tab PO Q4H PRN Pain (if needed) lorazepam 0.5 mg tablet 0.5 mg PO DAILY PRN Anxiety (if needed) pantoprazole 40 mg tablet,delayed release 40 mg PO BID metoprolol succinate 25 mg tablet,extended release 24 hr 25 mg PO QAM duloxetine 60 mg capsule,delayed release 60 mg PO QAM atorvastatin 40 mg tablet 40 mg PO QAM Take evening before surgery calcium 650 mg-vitamin D3 12.5 mcg-vitamin K 40 mcg chewable tablet (Viactiv) 1 tab PO BID hydrocodone 10 mg-acetaminophen 325 mg tablet 1 tab PO Q4H PRN Pain (if needed) lorazepam 0.5 mg tablet 0.5 mg PO DAILY PRN Anxiety (if needed) pantoprazole 40 mg tablet,delayed release 40 mg PO BID dicyclomine 10 mg capsule 10 mg PO QID PRN Abdominal Pain (if needed) polyethylene glycol 3350 17 gram oral powder packet (Miralax) 17 g PO UD PRN Constipation (if needed) sucralfate 100 mg/mL oral suspension 5 ml PO DAILY PRN Abdominal Pain (if needed) famotidine 20 mg tablet 20 mg PO HS aripiprazole 2 mg tablet 2 mg PO HS Other Notes If you have any questions please call us at [phone] or [phone] or [phone] or [phone]
--- NOTE | 2024-04-08 14:14 | Anesthesiology Consultation ---
Date of Service April 08, 2024 Assessment & Plan (1) Encounter for pre-operative examination: - Infectious disease screening: Per assessment on 04/08/24: No known recent infectious disease contacts or current infectious disease symptoms. - Plavix/ASA instructions: Patient made aware that for neuraxial anesthesia, Plavix needs to be held 7 days prior to surgery. Patient voiced understanding/will check if okay with prescriber. Patient advised to continue ASA perioperatively. - Outpatient joint assessment: Pt currently scheduled for inpatient pathway. If surgeon requests review for outpatient joint pathway, patient is not recommended candidate for outpatient joint program from anesthesia standpoint based on available information. - Cardiology note (04/12/24): "I have reviewed the clinical history, medications and relevant noninvasive testing. Based on these findings, I would consider the patient to be a low risk from a cardiac standpoint. Stress test was normal. She's cleared at low cardiac risk for hip surgery. Patient is able to hold Plavix x 7 days prior to surgery per cardiac standpoint" - Recent CVA 09/2023: Patient made aware that since CVA within 9 months from DOS, increased risks associated with undergoing surgery/anesthesia- she voiced understanding and wishes to proceed as scheduled and is accepting of those risks. Case reviewed with Dr. Boles- he advised that in addition to cardiac clearance, will need neurology preop evaluation. Patient states she previously followed with [facility] neurology/Dr. Ogden (last visit 04/2023) and would like to have neurology preop evaluation scheduled with their office. Note received by [facility] neuro who indicated they would arrange preop appt. Patient acceptable risk for surgery pending neurology preop evaluation ([facility] neurology/Dr. Ogden, appt 04/20). Chart Review Chart Review: Patient NOT seen in Pre Admission Testing History Surgery Operation Date: 05/07/24 12:00 Proposed Procedures p Right Anterior Total Hip Arthroplasty - Roberth Ortiz, DO Height/Weight Height: 4 ft 10 in Weight: 51.2 kg Allergies Allergy/AdvReac Type Severity Reaction Status Date / Time bee venom protein (honey bee) Allergy Severe Swelling Verified 04/08/24 13:59 Iodinated Contrast Media Allergy Intermediate Passed Verified 04/08/24 13:59 out, "cold" feeling venlafaxine Allergy Unknown Unknown Verified 03/31/24 11:19 atorvastatin AdvReac Intermediate Joint Pain Verified 04/08/24 13:59 gabapentin AdvReac Intermediate Severe Verified 04/08/24 13:59 headaches rosuvastatin [From Crestor] AdvReac Intermediate Joint Pain Verified 04/08/24 13:59 shellfish derived AdvReac Intermediate Headache Verified 03/31/24 11:19 Medications Home Medications Medication Instructions Recorded Confirmed Last Taken calcium 650 mg-vitamin D3 12.5 1 tab PO BID 03/05/19 03/31/24 06/18/23 mcg-vitamin K 40 mcg chewable tablet (Viactiv) levothyroxine 75 mcg tablet 75 mcg PO Q2D 11/02/20 03/31/24 09/29/23 hydrocodone 10 mg-acetaminophen 1 tab PO Q4H PRN Pain 01/30/21 03/31/24 08/22/21 325 mg tablet levothyroxine 50 mcg tablet 50 mcg PO Q2D 01/30/21 03/31/24 09/28/23 lorazepam 0.5 mg tablet 0.5 mg PO DAILY PRN Anxiety 01/30/21 03/31/24 Unknown pantoprazole 40 mg tablet,delayed 40 mg PO BID 01/30/21 03/31/24 09/29/23 release dicyclomine 10 mg capsule 10 mg PO QID PRN Abdominal Pain 04/11/22 03/31/24 09/30/23 adalimumab 40 mg/0.8 mL 40 mg subcut Q7D 04/12/22 03/31/24 09/27/23 subcutaneous syringe kit ([employer]) mv-mn-folic 200 mcg-vit K 15 1 cap PO BID 10/21/22 03/31/24 06/18/23 mcg-lutein 5 mg-zeaxanthin 1 mg capsule (PreserVision AREDS 2 Plus Multivit) polyethylene glycol 3350 17 gram 17 g PO UD PRN Constipation 10/21/22 03/31/24 08/05/23 oral powder packet (Miralax) metoprolol succinate 25 mg 25 mg PO QAM 11/18/22 03/31/24 09/30/23 tablet,extended release 24 hr fentanyl 25 mcg/hr transdermal 1 patch transdermal Q72H 05/14/23 03/31/24 09/29/23 patch sucralfate 100 mg/mL oral 5 ml PO DAILY PRN Abdominal Pain 05/14/23 03/31/2406/18/23 suspension multivitamin-ferrous 1 tab PO QAM 06/11/23 03/31/24 09/30/23 fumarate-folic acid 18 mg-400 mcg tablet (Centrum) duloxetine 60 mg capsule,delayed 60 mg PO QAM 09/30/23 03/31/24 09/30/23 release famotidine 20 mg tablet 20 mg PO HS 09/30/23 03/31/24 09/30/23 furosemide 20 mg tablet 20 mg PO QAM 09/30/23 03/31/24 09/30/23 lisinopril 10 mg tablet 10 mg PO QAM 09/30/23 03/31/24 09/30/23 atorvastatin 40 mg tablet 40 mg PO QAM #30 tabs 10/03/23 03/31/24 Unknown aripiprazole 2 mg tablet 2 mg PO HS 03/31/24 03/31/24 Unknown aspirin 81 mg chewable tablet 81 mg PO QAM 03/31/24 03/31/24 Unknown (Children's Aspirin) clopidogrel 75 mg tablet 75 mg PO QAM 03/31/24 03/31/24 Unknown collagen 1 dose PO QAM 03/31/24 03/31/24 Unknown Past Medical History Medical History Age related osteoporosis Anxiety Chronic pain syndrome Follows with specialist (Dr. Alfred Caballero/[place]) Depression Dyslipidemia Fibromyalgia GERD (gastroesophageal reflux disease) History of concussion Remote hx 2017, residual headaches History of COVID-19 10/2022, [facility] hospitalization > symptoms resolved except residual fatigue History of skin cancer BCC, s/p excision Hx of sleep apnea CPAP Hypertension Hypothyroidism JUDI (iron deficiency anemia) Lumbar spondylosis Nutcracker esophagus On home oxygen therapy 2 LPM PRN daytime + 4 LPM HS Osteoarthritis Pacemaker Medtronic, implanted 2020 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 Pancreatic insufficiency Paroxysmal atrial fibrillation Presence of Watchman left atrial appendage closure device Rheumatoid arthritis Rotator cuff tear arthropathy of right shoulder Per 05/2023 ortho visit, "X-rays taken 3 views of the right shoulder demonstrate significant [id number] articulation of the humeral head. The humeral head is superiorly migrated. There is a small nondisplaced fracture almost a comminuted fracture of the humeral head. Again, there is no displacement." Decision at this point to continue monitoring/non-surgical management. Scoliosis Stroke Possible CVA (09/30/23), [facility] admisison > stroke-like symptoms including speech slurring > received tPA, no acute head imaging findings, unremarkable echo, started on ASA/statin per neuro recommendations, advised to f/u with PCP Urge incontinence of urine Exercise / Class Metabolic Activity III < 4 Walking/Shop/Light housework Past Family History Family History Sister Colorectal cancer Hypertension Mother Stroke Hypertension Other No pertinent family history Past Surgical History Surgical History History of appendectomy History of bilateral cataract extraction History of bladder suspension procedure History of cardiac cath 2017- no stents History of colonoscopy History of endoscopy + dilation History of eye surgery laser History of laparoscopic cholecystectomy History of lumbar fusion History of partial colectomy History of partial hysterectomy History of rectocele repair w/mesh (mesh since removed) History of repair of right rotator cuff History of right knee surgery bursa sac removed History of total left knee replacement Hx of heart surgery Watchman procedure, 11/2023 ([facility] [place]) S/P insertion of spinal cord stimulator Subsequent removal S/P repair of paraesophageal hernia Past Anesthesia History No Hx of Anesthesia Complications and No Family Hx of Anesthesia Complications History of PONV No Hx of PONV and No Hx of Motion Sickness Social History Smoking Status: Never smoker Do You Dip or Chew Tobacco: No Hx Alcohol Use: No Hx Substance Use: No substance use type: does not use Review of Systems Patient denies chest pain, shortness of breath, fever, chills, cough, wheezing, palpitations. Physical Exam Vital Signs BP 99/50 P 72 SP02 97%RA RESP 16 Physical Full cervical extension range of motion. Full TMJ range of motion. TMD 3 finger breaths Mallampati Score II Dentition: upper/lower partials Lungs: clear throughout to auscultation Cardiac: regular rate and rhythm, no murmurs noted Spine: normal Carotid arteries: negative bruit Extremities: no LE edema Lab Results Anesthesia Preop Results Results Anesthesia Widget: WBC 5.39 K/ul (4.8-10.8) 04/08/24 Hgb 9.4 g/dl (12.0-16.0) L 04/08/24 Hct 28.8 % (37.0-47.0) L 04/08/24 Plt 215 K/uL (130-400) 04/08/24 Na 142 mmol/L (136-145) 04/08/24 K 4.1 mmol/L (3.5-5.1) 04/08/24 Cl 111 mmol/L (98-107) H 04/08/24 CO2 26 mmol/L (21-32) 04/08/24 BUN 18 mg/dl (6-23) 04/08/24 Creat 0.82 mg/dl (0.6-1.2) 04/08/24 Glucose Level 80 mg/dl (70-99(Fasting)) 04/08/24 PT 10.3 Seconds (9.0-12.0) 04/08/24 PTT 24 Seconds (21-31) 04/08/24 INR 0.9 (0.9-1.1) 04/08/24 Blood Type A Positive 04/08/24 Antibody Screen NEGATIVE 04/08/24 Testing Laboratory Results TSH (03/10/24) 3.07 Electrocardiogram Date: 04/08/24 NSR at 69bpm. "Normal ECG" Chest X-Ray Date: 04/08/24 FINDINGS: PA and lateral chest radiographs are compared to chest x-ray and chest CT dated 09/30/2023. A 2-lead cardiac pacemaker is unchanged in position. A device is noted in the atrial appendage. The heart is enlarged noting atherosclerotic calcification of the thoracic aorta. The pulmonary vasculature is noncongested. Chronic interstitial thickening is similar to previous. There is bibasilar scarring/atelectasis. No airspace consolidation or large pleural effusion is identified. There is no pneumothorax. The skeletal structures are osteopenic. Compression deformities are noted in the lower thoracic region. A left shoulder arthroplasty is in place. Advanced arthritic change is seen in the right shoulder. Degenerative change and scoliosis is noted in the spine. Fusion hardware is partially visualized in the lumbar spine. IMPRESSION: Cardiomegaly and cardiac pacemaker without radiographic evidence of congestive failure. No airspace consolidation or pleural effusion is identified. Echocardiogram Date: 10/01/23 EF 65-70%. Mild cLVH. Moderate LAD. Mild MR/TR. Doppler findings do not suggest pulmonary HTN. LV wall motion normal. Stress Test Date: 04/12/24 Type: nuclear No significant ischemia/infarction. The SPECT perfusion images are considered to be within normal limits. LVEF 83%. Other Testing C-spine xray Date: 11/26/22 FINDINGS: Severe multilevel degenerative disc disease and facet arthrosis is noted. No acute cervical spine fracture is identified by radiography. The appearance of the cervical spine appear similar to CT of July 22, 2022. The chronic C5 and C6 fractures shown on that exam are not well depicted by radiography. There is prominence of the prevertebral soft tissues at the C4-C7 levels. IMPRESSION: 1. No acute cervical spine fracture identified by radiography. The chronic C5 and C6 fractures on CT of July 12, 2022 are not well depicted by radiography. 2. Severe multilevel degenerative changes within the cervical spine. 3. Prominence of the prevertebral soft tissues at the C4-C7 levels. This is nons pecific although may be technical.
--- NOTE | 2024-05-06 10:28 | History & Physical Report ---
Date of Service May 06, 2024 Assessment & Plan (1) Osteoarthritis of right hip: We will proceed with a right anterior total of arthroplasty. Postoperatively she will be started back on aspirin and Plavix for DVT prophylaxis and kept overnight in the hospital for postop medical management. She plans to use energy physical therapy upon discharge. History of Present Illness Chief Complaint: Osteoarthritis of the right hip. Primary Care Provider: Ernestina Swanson DO Romina is a pleasant 83-year-old female who has been dealing with chronic increasing right hip and groin pain. She does have a history of rheumatoid arthritis. Her hip has been much worse recently. It is to the point where she is having trouble even ambulating with a rolling walker. Her is having trouble taking care of her. X-rays and clinical examination been diagnostic for worsening osteoarthritis of the right hip. After failed conservative treatment, she has elected to proceed with a right anterior total of arthroplasty. Allergies Allergy/AdvReac Type Severity Reaction Status Date / Time bee venom protein (honey bee) Allergy Severe Swelling Verified 04/08/24 13:59 Iodinated Contrast Media Allergy Intermediate Passed Verified 04/08/24 13:59 out, "cold" feeling venlafaxine Allergy Unknown Unknown Verified 03/31/24 11:19 atorvastatin AdvReac Intermediate Joint Pain Verified 04/08/24 13:59 gabapentin AdvReac Intermediate Severe Verified 04/08/24 13:59 headaches rosuvastatin [From Crestor] AdvReac Intermediate Joint Pain Verified 04/08/24 13:59 shellfish derived AdvReac Intermediate Headache Verified 03/31/24 11:19 Home Medications Medication Instructions Recorded Confirmed Type calcium 650 mg-vitamin D3 12.5 1 tab PO BID 03/05/19 03/31/24 History mcg-vitamin K 40 mcg chewable tablet (Viactiv) levothyroxine 75 mcg tablet 75 mcg PO Q2D 11/02/20 03/31/24 History hydrocodone 10 mg-acetaminophen 1 tab PO Q4H PRN Pain 01/30/21 03/31/24 History 325 mg tablet levothyroxine 50 mcg tablet 50 mcg PO Q2D 01/30/21 03/31/24 History lorazepam 0.5 mg tablet 0.5 mg PO DAILY PRN Anxiety 01/30/21 03/31/24 History pantoprazole 40 mg tablet,delayed 40 mg PO BID 01/30/21 03/31/24 History release dicyclomine 10 mg capsule 10 mg PO QID PRN Abdominal Pain 04/11/22 03/31/24 History adalimumab 40 mg/0.8 mL 40 mg subcut Q7D 04/12/22 03/31/24 History subcutaneous syringe kit ([employer]) mv-mn-folic 200 mcg-vit K 15 1 cap PO BID 10/21/22 03/31/24 History mcg-lutein 5 mg-zeaxanthin 1 mg capsule (PreserVision AREDS 2 Plus Multivit) polyethylene glycol 3350 17 gram 17 g PO UD PRN Constipation 10/21/22 03/31/24 History oral powder packet (Miralax) metoprolol succinate 25 mg 25 mg PO QAM 11/18/22 03/31/24 History tablet,extended release 24 hr fentanyl 25 mcg/hr transdermal 1 patch transdermal Q72H 05/14/23 03/31/24 History patch sucralfate 100 mg/mL oral 5 ml PO DAILY PRN Abdominal Pain 05/14/23 03/31/24 History suspension multivitamin-ferrous 1 tab PO QAM 06/11/23 03/31/24 History fumarate-folic acid 18 mg-400 mcg tablet (Centrum) duloxetine 60 mg capsule,delayed 60 mg PO QAM 09/30/23 03/31/24 History release famotidine 20 mg tablet 20 mg PO HS 09/30/23 03/31/24 History furosemide 20 mg tablet 20 mg PO QAM 09/30/23 03/31/24 History lisinopril 10 mg tablet 10 mg PO QAM 09/30/23 03/31/24 History atorvastatin 40 mg tablet 40 mg PO QAM #30 tabs 10/03/23 03/31/24 Rx aripiprazole 2 mg tablet 2 mg PO HS 03/31/24 03/31/24 History aspirin 81 mg chewable tablet 81 mg PO QAM 03/31/24 03/31/24 History (Children's Aspirin) clopidogrel 75 mg tablet 75 mg PO QAM 03/31/24 03/31/24 History collagen 1 dose PO QAM 03/31/24 03/31/24 History Past Med/Surg History Problem List STEPHANIE (generalized anxiety disorder) Major depressive disorder, recurrent, severe without psychotic features Greater trochanteric bursitis of both hips Lumbar spondylosis Basal cell carcinoma Depression HTN (hypertension) PAF (paroxysmal atrial fibrillation) Tendonitis of shoulder, left Trochanteric bursitis of left hip ARTHUR (obstructive sleep apnea) Encounter for pre-operative examination GERD (gastroesophageal reflux disease) Rheumatoid arthritis Hypothyroidism Medical History Lumbar spondylosis Hypothyroidism Hypertension GERD (gastroesophageal reflux disease) Rheumatoid arthritis Stroke Possible CVA (09/30/23), [facility] admisison > stroke-like symptoms including speech slurring > received tPA, no acute head imaging findings, unremarkable echo, started on ASA/statin per neuro recommendations, advised to f/u with PCP Presence of Watchman left atrial appendage closure device Rotator cuff tear arthropathy of right shoulder Per 05/2023 ortho visit, "X-rays taken 3 views of the right shoulder demonstrate significant [id number] articulation of the humeral head. The humeral head is superiorly migrated. There is a small nondisplaced fracture almost a comminuted fracture of the humeral head. Again, there is no displacement." Decision at this point to continue monitoring/non-surgical management. Chronic pain syndrome Follows with specialist (Dr. Alfred Caballero/[place]) Anxiety Depression On home oxygen therapy 2 LPM PRN daytime + 4 LPM HS History of COVID-19 10/2022, [facility] hospitalization > symptoms resolved except residual fatigue Urge incontinence of urine Nutcracker esophagus Pancreatic insufficiency Paroxysmal atrial fibrillation Pacemaker Medtronic, implanted 2020 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 JUDI (iron deficiency anemia) Dyslipidemia History of skin cancer BCC, s/p excision Scoliosis Age related osteoporosis Fibromyalgia Hx of sleep apnea CPAP History of concussion Remote hx 2018, residual headaches Osteoarthritis Surgical History S/P insertion of spinal cord stimulator Subsequent removal Hx of heart surgery Watchman procedure, 11/2023 ([facility] [place]) History of eye surgery laser History of bilateral cataract extraction History of colonoscopy History of total left knee replacement History of rectocele repair w/mesh (mesh since removed) History of laparoscopic cholecystectomy History of right knee surgery bursa sac removed History of lumbar fusion History of endoscopy + dilation History of cardiac cath 2018- no stents S/P repair of paraesophageal hernia History of partial colectomy History of repair of right rotator cuff History of bladder suspension procedure History of appendectomy History of partial hysterectomy Family History Sister Colorectal cancer Hypertension Mother Stroke Hypertension Other No pertinent family history Social History Smoking Status: Never smoker Second Hand Exposure: No; Do You Dip or Chew Tobacco: No; Tobacco Cessation Education Requested by Patient: No Hx Alcohol Use: No Hx Substance Use: No Preferred Language: Mauritanian Communication Ability: Effective Visual Impairment: No Limitations Hearing Ability: Normal 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 Physical Exam On physical examination of the right hip, she has decreased range of motion. She has pain with forced internal and external rotation. All of her pain is located in the groin.. Constitutional WD/WN, vitals as above Eyes PERRL, conjunctivae normal, anicteric sclerae ENMT external ear and nose normal, oropharynx normal Neck trachea midline, no thyromegaly Respiratory normal respiratory effort Cardiovascular RRR, no murmur, no edema Gastrointestinal (Abdomen) normal bowel sounds, soft, nontender, no hepatosplenomegaly Psychiatric A+Ox3, euthymic affect Results & Data Results & Data Laboratory Results . Diagnostic Findings X-rays of the right hip show advanced osteoarthritis with joint space narrowing, osteophyte formation, and [id number]-[id number]-[id number] articulation. PG Care Time/CCT Total # of Minutes Spent Total Time Spent with Patient: Total time spent is greater than 50% in coordination of care (as documented) at patient's floor/unit and/or counseling patient: Coding Level of Care Code None Diagnoses Osteoarthritis of right hip M16.11
[2024-05-07] MEDS ORDERED: ROPIVACAINE 0.5% 5 MG/ML 30 ML VIAL ONE (06:15)
[2024-05-07] MEDS: LR 60ML/HR IV SCH (06:23)
[2024-05-07] MEDS: LR 500ML BOLUS, THEN 15ML/HR IV SCH (06:23)
[2024-05-07] MEDS: ACETAMINOPHEN 500 MG TAB PO SCH ×2 (06:24→14:55)
[2024-05-07] MEDS: FAMOTIDINE 20 MG TAB PO SCH ×2 (06:24→20:24)
[2024-05-07] MEDS: dexAMETHasone**PF** 10 MG/ML VIAL IV SCH (06:24)
[2024-05-07] MEDS: GABAPENTIN 300 MG CAP PO SCH (06:25)
[2024-05-07] MEDS ORDERED: HYDROmorphone INJ 1 MG/ML SYRINGE IV PRN (06:41)
[2024-05-07] MEDS ORDERED: fentaNYL citrate PF 100 MCG/2 ML VIAL IV PRN (06:41)
[2024-05-07] MEDS ORDERED: ATROPINE SULFATE 0.1 MG/ML 10ML SYR IV PRN (06:41)
[2024-05-07] MEDS ORDERED: ePHEDrine sulfate 50 MG/ML AMP IV PRN (06:41)
[2024-05-07] MEDS ORDERED: ONDANSETRON INJ 2 MG/ML 2 ML VIAL IV PRN (06:41)
[2024-05-07] MEDS ORDERED: MIDAZOLAM HCL 1 MG/ML 2ML VIAL ONE (06:42)
[2024-05-07] MEDS ORDERED: fentaNYL citrate PF 100 MCG/2 ML VIAL ONE (06:42)
[2024-05-07] MEDS: TRANEXAMIC ACID 1,000 MG **IV Pre-op IV SCH (06:47)
[2024-05-07] MEDS: ceFAZolin 2000MG 2,000 MG/15 ML SYR IV SCH ×2 (07:00→14:55)
[2024-05-07] MEDS ORDERED: PROPOFOL IV EMULSION 10 MG/ML 20 ML VIAL IV ONE (07:17)
[2024-05-07] MEDS ORDERED: ONDANSETRON INJ 2 MG/ML 2 ML VIAL ONE (07:20)
[2024-05-07] MEDS: ROPIV 0.5% 246mg, Ketorolac 30mg, EPINEPHrine 0.5mg in NSS INFIL SCH (07:37)
[2024-05-07] MEDS: ORTHO JOINT ANESTHETIC ONE (07:37)
[2024-05-07] MEDS: TRANEXAMIC ACID 1,000 MG **IV Intra-op IV SCH (07:50)
--- NOTE | 2024-05-07 08:06 | Operative Report ---
PG Post Operative Report Pre & Post Diagnosis Operation Date: 05/07/24 07:00 Pre-Op Diagnosis: Osteoarthritis of right hip Post-Op Diagnosis: Osteoarthritis of right hip I identified the patient and participated in the time-out.: Yes Procedure Operation Date: 05/07/24 07:00 Actual Procedures p Right Anterior Total Hip Arthroplasty(Right) - Roberth Ortiz DO Surgeon Roberth Ortiz DO Supervisor Laboratory Animal Facility Roberth Washington PA-C Estimated Blood Loss 250 Findings Consistent with Post-Op Diagnosis Specimens Right femoral head Description of Procedure Implants used I used a [employer] total hip arthroplasty system with a size 6.5 high offset Avenir Complete stem, a 50 mm G7 cup with a 25mm screw, an E1 polyethylene liner, a 36 mm ceramic head with a -3.5 neck. Romina arrived at the hospital for the above procedure. She was seen in the preoperative holding area and the operative extremity was identified and signed. She was given a spinal anesthetic, a preoperative antibiotic, and TXA. She was then taken back to the operating room and laid on the table in the supine position. She was given basic sedation. The operative leg was secured to a Puristst leg positioner. The hip was then prepped and draped in sterile fashion. A timeout was done and the patient and the operative extremity was properly identified. An anterior approach was used. Dissection was taken down through the fascia and the tensor muscle belly was retracted laterally and the rectus was retracted medially. The circumflex vessels were identified and ligated. The capsule was then incised and tagged for later repair. The femoral neck was then cut and the femoral head was removed. The acetabulum was exposed. Time was spent doing a complete circumferential labral release. Sequential reaming of the acetabulum up to a size 49 reamer was done. Final reamings were done under fluoroscopy to ensure appropriate version. A Biomet 50 mm G7 cup was then impacted into place. A single 25 mm screw was placed. The E1 polyethylene liner was then snapped into place. Surrounding soft tissues were then injected with 100 cc of an orthopedic pain control cocktail. The proximal femur was then exposed. Sequential broaching up to a size 6.5 broach was done. Off that broach a size 36 head with a -3.5 neck was trialed. The hip was reduced and fluoroscopic images showed anatomic alignment of the implants in acceptable length. The broach was removed. The final size 6.5 high offset Avenir Complete stem was then impacted into place. A ceramic 36 mm head with a -3.5 neck was then impacted onto the stem and the hip was reduced. Final fluoroscopic images showed anatomic alignment of the hip. The capsule was then closed with #1 Vicryl suture. A dilute betadyne lavage was then done for 3 minutes. The joint was then irrigated with normal saline solution. The fascia was closed with #1 PDS suture. Skin was closed with 2-0 Vicryl, jami, and a Silverlon dressing. She was then transferred to a hospital bed and taken to the post anesthesia care unit in stable condition. She tolerated the procedure well. Roberth Washington PA-C, was present for the entire procedure. He was critical for patient positioning, prepping, draping, retraction exposure, wound closure and application of sterile dressing. I attest to the content of the Intraoperative Record and any orders documented therein. Any exceptions are noted below.
[2024-05-07] MEDS ORDERED: PHENYLEPHRINE 100MCG/ML 10ML SYR IV ONE (08:35)
--- NOTE | 2024-05-07 09:00 | Fluoroscopy Report ---
FL hip RT 1V CLINICAL HISTORY: RT ANTERIOR HIPright hip arthroplasty COMPARISON STUDY: 03/31/2024 FLUOROSCOPY TIME: 9.9 seconds FLUOROSCOPY IMAGES: 1 EXPOSURE DOSE: 1.3084 mGy FINDINGS: Satisfactory alignment of the right hip arthroplasty. Expected postoperative soft tissue sw elling with deep tissue air. No acute fracture or unexpected opaque foreign body identified. IMPRESSION: Fluoroscopic assistance as above. ACT 112: Negative or not required by law. Electronically signed by: Daniel Fitzgerald M.D. 05/07/2024 8:58 AM
--- NOTE | 2024-05-07 09:43 | Anesthesiology Progress Note ---
Date of Service May 07, 2024 Anesthesia Post Procedure Vital Signs Vital Signs: Temp Pulse Pulse Resp BP Pulse Ox O2 Del Method 05/07/24 09:25 36.3 C L 73 18 133/69 95 Nasal Cannula 05/07/24 09:15 66 21 121/53 L 97 Oxymask 05/07/24 09:05 79 13 134/63 100 Oxymask 05/07/24 08:55 73 16 122/62 97 Oxymask 05/07/24 08:45 76 16 117/59 L 96 Oxymask 05/07/24 08:35 79 18 107/55 L 97 Oxymask 05/07/24 08:25 36.0 C L 84 20 127/74 100 Oxymask 05/07/24 06:08 36.6 C 60 18 111/52 L 93 Room Air 05/07/24 05:54 Room Air O2 Flow Rate 05/07/24 09:25 2 05/07/24 09:15 4 05/07/24 09:05 4 05/07/24 08:55 4 05/07/24 08:45 4 05/07/24 08:35 4 05/07/24 08:25 6 05/07/24 06:08 05/07/24 05:54 Pain Intensity Right Hip: Pain Intensity: 0 Transfer of Care Handoff Completed per policy Notes Mental Status: alert / awake / arousable and participated in evaluation Patient Amnestic to Procedure: Yes Nausea / Vomiting: adequately controlled Pain: adequately controlled Airway Patency, RR, SpO2: stable & adequate BP & HR: stable & adequate Hydration State: stable & adequate Neuraxial Anesthesia: was administered and sensory block is resolving Anesthetic Complications: no major complications apparent and Pt Satisfied with anesthetic care
--- OUTSIDE RECORDS SUMMARY | 2024-05-07 10:44 | External Medical Summary | Summary of Care ---
Author Name Unknown Organization [facility] Address [address] [place] [address] Phone [phone] Care Team Providers [employer] Artistic Director Name Role Phone Ernestina Swanson DO Primary Care Provider [phone] Reason for Visit * Reason Onset Date Comments Return Neuro Medication Administration 04/20/2024 Flu an d/or Pneumo Inj Encounter Details Date Type Department Care Team (Late st Contact Info) Description 04/20/2024 11:20 AM EDT Office Visit Neurology [facility] [address] [facility] [place] [address] Willam Rivers DO [address] [facility] [place] [address] Need for prophylactic vaccination and inoculation against influenza*; History of TIA (transient ischemic attack); Dysarthria; Intractable chronic migraine without aura and without status migrainosus Allergies Active Allergy Reactions Criticality Noted Date [...] as of this encounter (statuses as of 04/20/2024) Medications Medication Sig Dispensed Refills Start Date End Date Status Calcium-Vitamin D-Vitamin K 500-500-40 MG-UNT-MCG Oral Tablet Chewable Take 500 Tablets by mouth in the morning and 500 Tablets before bedtime. Active nitroglycerin (NITROSTAT) 0.[address] 1 Tab under the tongue as needed for Pain, Chest. May repeat 3 times. If chest pain continues, call 911. 25 Tab 11 07/06/2018 Active PreserVision AREDS 2+Multi Vit Oral Capsule Take by mouth. Active Polyethylene Glycol 3350 17 GM/SCOOP Oral Powder (MiraLax) Take 17 g by mouth as needed for Constipation. Dissolve one heaping tablespoon in 8 ounces of water or juice. 850 g 5 07/21/2020 Active HYDROcodone-Acetamin ophen 10-325 MG Oral Tablet 03/23/2022 Active oxygen IN GASIndications:Noctu rnal hypoxemia,Chronic diastolic heart failure (HCC),ARTHUR (obstructive sleep apnea) 1 LPM via nasal cannula with all and any sleep 1 Each 06/19/2022 Active Diclofenac Sodium 1 % External Gel (Voltaren) Use 2 GM's topically on back up to 4 times daily. 150 g 5 07/24/2022 Active fentaNYL 25 MCG/HR Transdermal Patch 72 Hour (Duragesic) Apply 1 Patch topically to affected area every 3 days. 09/27/2022 Active CPAP every night at bedtime. Active Meclizine HCl 25 MG Oral Tablet (Antivert) Take 1 Tablet by mouth 3 times a day as needed for Dizziness. 30 Tablet 1 03/24/2023 Active WalkerIndications:Fr equent falls One walker with wheels; no seat. Dx: Ambulatory dysfunction, history of falls 1 Each 04/04/2023 Active Dicyclomine HCl 10 MG Oral Capsule (Bentyl) Take 1 Capsule by mouth 4 times a day as needed for Cramping. For abdominal pain 120 Capsule 11 04/08/2023 Active methylPREDNISolone 4 MG Oral Tablet Therapy Pack (Medrol Dosepack) follow package directions 21 Tablet 4 04/14/2023 Active Naloxone HCl 4 MG/0.1ML Nasal Liquid Administer 1 [place] into nostril. 02/24/2023 Active Humira 40 MG/0.4ML Subcutaneous Prefilled Syringe Kit (Adalimumab) Inject 0.4 mL under the skin once a week. 4.8 mL 3 05/08/2023 Active LORazepam 0.5 MG Oral Tablet (Ativan)Indications: STEPHANIE (generalized anxiety disorder) Take 1 Tablet by mouth daily as needed for Agitation or Anxiety. No more than 1 tab in 24 hours 30 Tablet 08/01/2023 Active DULoxetine HCl 20 MG Oral Capsule Delayed Release Particles (duloxetine) Take 30 mg by mouth in the morning. Active Furosemide 20 MG Oral Tablet (Lasix) Take 1 Tablet by mouth in the morning. 90 Tablet 3 10/09/2023 Active Levothyroxine Sodium 75 MCG Oral Tablet (Synthroid)Indicatio ns:Acquired hypothyroidism Taking 75mcg one day alternating with 50mcg every other day 15 Tablet 11 10/09/2023 Active Pantoprazole Sodium 40 MG Oral Tablet Delayed Release (Protonix)Indication s:Paroxysmal atrial fibrillation (HCC),Gastroesophage al reflux disease without esophagitis Take 1 Tablet by mouth in the morning and 1 Tablet before bedtime. 180 Tablet 1 10/09/2023 Active Sucralfate 1 GM/10ML Oral Suspension (Carafate) Take 10 mL by mouth in the morning and 10 mL at noon and 10 mL in the evening and 10 mL before bedtime. 900 mL 2 10/09/2023 Active Viactiv Digestive Health Oral Tablet Chewable Take by mouth. 2 chew daily Active Aspirin 81 MG Oral Tablet Chewable 1 Tablet. 1 daily 10/03/2023 Ac tive Atorvastatin Calcium 40 MG Oral Tablet (Lipitor) Take 1 Tablet by mouth in the morning. 90 Tablet 3 11/04/2023 Active DULoxetine HCl 60 MG Oral Capsule Delayed Release Particles (Cymbalta) 10/22/2023 Active Clopidogrel Bisulfate 75 MG Oral Tablet (Plavix) Take 1 Tablet by mouth in the morning. Active Famotidine 20 MG Oral Tablet (Pepcid) Take 1 Tablet by mouth in the morning and 1 Tablet before bedtime. 12/02/2023 Active Levothyroxine Sodium 50 MCG Oral Tablet (Levoxyl) TAKE ONE TABLET BY MOUTH EVERY OTHER DAY alternating with 75mcg every other day 15 Tablet 4 03/01/2024 Active Armodafinil 250 MG Oral Tablet (Nuvigil) Take 1 Tablet by mouth in the morning. 90 Tablet 1 03/11/2024 Active Lisinopril 10 MG Oral Tablet (Prinivil) Take 1 Tablet by mouth in the morning. 30 Tablet 5 04/12/2024 Active hydrOXYzine HCl 25 MG Oral TabletIndications:Pr uritus 1-2 pills before bed for itching as needed. 60 Tablet 2 04/19/2024 Active ARIPiprazole 5 MG Oral Tablet (Abilify) Take 1 Tablet by mouth at bedtime. 04/13/2024 Active Ubrelvy 50 MG Oral Tablet (Ubrogepant)Indicati ons:Intractable chronic migraine without aura and without status migrainosus Take 1 tablet at onset of migraine and may repeat in 2 hours if needed. Do not exceed 4 tablets in 24 hours. 10 Tablet 5 04/20/2024 Active documented as of this encounter (statuses as of 04/20/2024) Active Problems Problem Noted Date Diagnosed Date Encounter for long-term (current) use of medicat ions 10/28/2023 Depression with anxiety 03/24/2023 COPD, group B, [...] 02/01/2014 Degeneration of lumbosacral intervertebral disc 01/13/2009 Hyperlipidemia with target LDL less than 100 Overview: Per Lipid Taxonomy. 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 11/22 EGD [facility] -gastritis. -TTE normal EF. LAE/CARMELINA, mild MR, mild-mod MR. 06/23 TTE normal EF mild LVH Gr I garcia dys 04/23 Quantiferon WNL Sacroiliitis 08/19/2019 06/03/2021 Recurrent major depressive d isorder, in partial remission 06/04/2018 03/24/2023 Somatic symptom disorder 08/12/201708/2017 CSA (central sleep apnea) 06/12/2017 Overview: CPAP 7 cwp [facility] Hx of nonmelanoma skin cancer [...] after hysterectomy 8 06/04/2018 Rectocele 12/03/2006 06/04/2018 Hx COLON POLYPS 12/15/2003 06/04/2018 FAM HX COLON CANCER -sister 12/15/2003 06/04/2018 Family history of other card iovascular diseases 12/15/2003 06/04/2018 Overview: ICD-10 update of inactive term Other osteoporosis without c urrent pathological fracture 12/15/2003 03/26/2021 Overview: ICD-10 update of inactive term GENERAL OSTEOARTHROSIS 12/15/200306/04 Hiatal hernia 06/04/2018 Osteoporosis 12/24/2017 Concussion syndrome 06/04/20 18 documented as of this encounter (statuses as of 04/20/2024) Immunizations Name Administration Dates Next Due COVID-19 mRNA, LNP-s, No Pre serve, 2-Dose Series (Pfizer) 04/17/2021,03/27/2021 Pneumococcal Conjugate Vacc, 13 Valent (Prevnar) 08/23/2014 Pneumococcal Polysaccharide PPV23 (Pneumovax) 01/30/2016 Season Influenza, Quad, PF, Adjuvanted, 65+ Yrs, IM (FLUAD) 06/13/2020 Seasonal Influenza Virus Vac cine, Unspecified Formulation 05/02/2021,06/13/2020,04/01/2019,05/05,04/12/2016,05/10/2014,04/16/2013 ,05/26/2012,06/13/2011,04/19/2010,04/04 Seasonal Influenza, High Dos e, Trivalent, PF, IM (Fluzone HD) 04/20/2024 Seasonal Influenza, PF, 6 M & above, IM , (FluLaval or Fluzone) 05/05/2018 Seasonal Influenza, Quadriva lent Hd (Fluzone Hd) 07/04/2023,04/17/2022,05/02/2021 Seasonal Influenza, Quadriva lent, No Preserve, IM 04/12/2016,05/16/2015 Seasonal Influenza, Trivalen t, (IIV3), with Preserv, (Fluzone) 05/10/2014,04/16/2013,05/26/2012,06/13,04/19/2010,04/18/2009 Seasonal Influenza, Trivalen t, Adjuvanted, 65+ YRS, PF, (Fluad) 04/01/2019 TD, Preservative Free 04/19/2010 documented as [...] Sign Reading Time Taken Comments Blood Pressure 116/70 04/20/2024 11:13 AM EDT Pulse - - Temperature 36.7 C (98.1 F) 04/20/2024 11:13 AM E DT Respiratory Rate - - Oxygen Saturation - - Inhaled Oxygen Concentration - - Weight 49.3 kg (108 lb 9.6 oz) 04/20/2024 11:13 AM EDT Height - - Body Mass Index 15.36 02/04/2024 1:48 PM EDT documented in this encounter Functional Status Functional [...] as of this encounter Progress Notes * Vanessa Luna LPN - 04/20/2024 11:20 AM EDT PRE - ADMINISTRATION DOCUMENTATION Are you experiencing any cold symptoms or fever? No Have you had Guillain-Mansfield Syndrome (an illness that causes paralysis) within the last 6 weeks? No Have you had the flu shot in the past? YES Have you ever had a reaction to the flu shot? No Vanessa Luna LPN, 04/20/2024 11:20 AM Immunization Administration Documentation Time Out Procedure Performed: Yes Patient Identified (Ask Name/Date of ): Yes Does the patient have a fever greater than 101 degrees today? No Patient allergic to latex? 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 She has a pain stimulator. She was admitted in [facility] for possible stroke and receive TNK. This was for dysarthria. MRI after receiving TNK showed no evidence of acute stroke. Differential diagnosis included at TIA versus aborted stroke. She did have CTA head and neck imaging at that time which showed no evidence of large vessel occlusionor high-grade stenosis. She remains on aspirin and Plavix. She has had no further stroke. She presents today with her . Headaches have somewhat improved although she still has a debilitating headache from time to time. She did take Ubrelvy which helped. She is otherwise ambulating with a 4 point walker and scheduled for hip surgery in the week of May. HOME MEDICATIONS : Current Outpatient Medications Medication Sig Dispense Refill Calcium-Vitamin D-Vitamin K 500-500-40 MG-UNT-MCG Oral Tablet Chewable Take 500 Tablets by mouth inthe morning and 500 Tablets before bedtime. nitroglycerin (NITROSTAT) 0.[address] 1 Tab under the tongue as needed for Pain, Chest. May repeat 3 times. If chest pain continues, call 911. 25 Tab 11 PreserVision AREDS 2+Multi Vit Oral Capsule Take by mouth. Polyethylene Glycol 3350 17 GM/SCOOP Oral Powder (MiraLax) Take 17 g by mouth as needed for Constipation. Dissolve one heaping tablespoon in 8 ounces of water or juice. 850 g 5 HYDROcodone-Acetaminophen 10-325 MG Oral Tablet oxygen IN GAS 1 LPM via nasal cannula with all and any sleep 1 Each 0 Diclofenac Sodium 1 % External Gel (Voltaren) Use 2 GM's topically on back up to 4 times daily. 150g 5 fentaNYL 25 MCG/HR Transdermal Patch 72 Hour (Duragesic) Apply 1 Patch topically to affected area every 3 days. CPAP every night at bedtime. Meclizine HCl 25 MG Oral Tablet (Antivert) [...] Cramping. For abdominal pain 120 Capsule 11 methylPREDNISolone 4 MG Oral Tablet Therapy Pack (Medrol Dosepack) follow package directions 21 Tablet 4 Naloxone HCl 4 MG/0.1ML Nasal Liquid Administer 1 [place] into nostril. Humira 40 MG/0.4ML Subcutaneous Prefilled Syringe Kit (Adalimumab) Inject 0.4 mL under the skin once a week. 4.8 mL 3 LORazepam 0.5 MG Oral Tablet (Ativan) Take 1 Tablet by mouth daily as needed for Agitation or Anxiety. No more than 1 tab in 24 hours 30 Tablet 0 Furosemide 20 MG Oral Tablet (Lasix) Take 1 Tablet by mouth in the morning. 90 Tablet 3 Levothyroxine Sodium 75 MCG Oral Tablet (Synthroid) Taking 75mcg one day alternating with 50mcg every other day 15 Tablet 11 Pantoprazole Sodium 40 MG Oral Tablet Delayed Release (Protonix) Take 1 Tablet by mouth in the morning and 1 Tablet before bedtime. 180 Tablet 1 Sucralfate 1 GM/10ML Oral Suspension (Carafate) Take 10 mL by mouth in the morning and 10 mL at noon and 10 mL in the evening and 10 mL before bedtime. 900 mL 2 Viactiv Digestive Health Oral Tablet Chewable Take by mouth. 2 chew daily Aspirin 81 MG Oral Tablet Chewable 1 Tablet. 1 daily Atorvastatin Calcium 40 MG Oral Tablet (Lipitor) Take 1 Tablet by mouth in the morning. 90 Tablet 3 DULoxetine HCl 60 MG Oral Capsule Delayed Release Particles (Cymbalta) Clopidogrel Bisulfate 75 MG Oral Tablet (Plavix) Take 1 Tablet by mouth in the morning. Famotidine 20 MG Oral Tablet (Pepcid) Take 1 Tablet by mouth in the morning and 1 Tablet before bedtime. Levothyroxine Sodium 50 MCG Oral Tablet (Levoxyl) TAKE ONE TABLET BY MOUTH EVERY OTHER DAY alternating with 75mcg every other day 15 Tablet 4 Armodafinil 250 MG Oral Tablet (Nuvigil) Take 1 Tablet by mouth in the morning. 90 Tablet 1 Lisinopril 10 MG Oral Tablet (Prinivil) Take 1 Tablet by mouth in the morning. 30 Tablet 5 hydrOXYzine HCl 25 MG Oral Tablet 1-2 pills before bed for itching as needed. 60 Tablet 2 ARIPiprazole 5 MG Oral Tablet (Abilify) Take 1 Tablet by mouth at bedtime. DULoxetine HCl 20 MG Oral Capsule Delayed Release Particles (duloxetine) Take 30 mg by mouth in themorning. (Patient not taking: Reported on 04/20/2024) No current facility-administered medications for this visit. Review of patient's allergies indicates: Allergen Reactions [...] JOINTS, Unknown Shellfish-Derived Products Other reaction(s): Headache PHYSICAL EXAMINATION: Vital Signs: BP 116/70 (BP Site: Right Arm, BP Position: Sitting, BP Cuff Size: Regular) | Temp 36.7 C (98.1 F) (Tympanic) | Wt 49.3 kg (108 lb 9.6 oz) | BMI 15.36 kg/m | BSA 1.57 m On examination she appears stated age, no acute distress. Thin-appearing female. She appears statedage. Head is atraumatic normocephalic eyes are midline. Extraocular muscles are intact. Speech is clear. She is following all commands. She is oriented to person place and time. She is oriented [id number]. She has no ataxia with [id number] testing. Evaluation does show significant arthritic changes in both hands. She has no pronator drift. She ambulates with a wide-based gait using a 4 point walker. Sensation is intact to light touch. LABORATORY: Labs reviewed and pertinent findings are indicated below: Review of prior Diagnostic Tests: Review of prior Radiology Studies: IMPRESSION / PLAN: Romina was seen today for return neuro and medication administration. Diagnoses and all orders for this visit: Need for prophylactic vaccination and inoculation against influenza - INFLUENZA VAC., TRIVALENT, HD, PF, 65 AND ABOVE, 0.5 ML IM (FLUZONE HD) History of TIA (transient ischemic attack) - VASC DUPLEX CAROTID BILAT; Future Dysarthria - VASC DUPLEX CAROTID BILAT; Future Intractable chronic migraine without aura and without status migrainosus - Ubrelvy 50 MG Oral Tablet (Ubrogepant); Take 1 tablet at onset of migraine and may repeat in 2 hours if needed. Do not exceed 4 tablets in 24 hours. Romina Jensen is an 83-year-old female with history of aborted stroke versus TIA in September of 2023 at [facility]. MRI of the brain as well as CTA head and neck at that time were reassuring. No evidence of acute intracranial abnormality. No evidence of acute stroke. She remains on aspirin and Plavix for secondary stroke prevention. Has been following with me for known intractable chronic migraine headache versus new daily persistent headache. She had no improvement with the use of Botox.She has had relief with the use of Ubrelvy. Will give her a script for Ubrelvy 50 mg tablet as needed for migraine abortive. She is scheduled for hip surgery in May. She is cleared neurologicallyfor hip surgery. Will obtain a carotid ultrasound in the interim prior to surgery to exclude any evidence or new development of carotid disease. Otherwise okay with holding aspirin and Plavix for surgery. Would recommend resuming after it is safe from a surgical standpoint. She will otherwise follow with me on an as- needed basis for now. Willam Rivers DO documented in this encounter Nursing Notes * Vanessa Luna LPN - 04/20/2024 11:13 AM EDT Chief Complaint Patient presents with Return Neuro documented in this encounter Plan of Treatment Upcoming Encounters Date Type Department Care Team (Late st Contact Info) Description 04/22/2024 12:30 PM EDT Imaging Radiology [address] [place] [id number] 05/18/2024 11:00 AM EDT Office Visit Sleep Disorders Ctr [facility] [address] [place] [phone] Ofe Toure DO [address] [place] [address] 05/28/2024 1:20 PM EDT Office Visit Rheumatology [address] [place] [phone] Roberth Roy MD [address] [place] [address] 09/13/2024 1:30 PM EST Office Visit Ophthalmology, [facility] [address] [place] [address] Timur Roque, DO [address] [place] [address] 09/17/2024 2:30 PM EST Office Visit Family Medicine [address] [place] [phone] [place] [address] Scheduled Orders Name Type Priority Associated Diagnoses Orde r Schedule VASC DUPLEX CAROTID BILAT Medical Imaging Routine History of TIA (transient ischemic attack) Dysarthria Expected: 04/20/2024, Expires: 06/20/2024 Health Maintenance Due Date Last Done Comments Alpha-1 Antitrypsin 1960 Zoster Vaccines (1 of 2) 1961 Adult Wellness Visit 2008 *BISPHONATE OR OTHER ACCEPTABLE MEDICATION NEEDED FOR OSTEOPOROSIS (REFER TO SMARTSET #1146) 03/03/2020 COVID-19 Vaccine (3 - Pfizer risk series) 05/15/2021 04/17/2021, 03/27/2021 GFR 10/05/2024 04/07/2024, 02/2024, 02/04/2024, Additional history exists Depression Monitoring 10/08/2024 10/09/2023 O2 ASSESSMENT COMPLETED IN PAST YEAR FOR COPD 10/09/2024 10/10/2023 CKD HGB USE SMARTSET 53912 11/13/202411/13, 10/09/2023, 10/09/2023, Additional history exists CKD PHOS USE SMARTSET 36764 02/03/2025 07/0 10/2023, 04/09/2022, 07/21/2014, Additional history exists TSH 03/10/2025 03/10/2024, 030 02/2024, 08/25/2023, Additional history exists Albumin/Creatinine Ratio 04/07/2025 04/07/2024, 090 01/2022 DXA Scan 04/10/2025 04/10/2023, 0 02/2023, 04/27/2020, Additional history exists Colonoscopy 06/20/2026 06/20/2021, 0 02/2021, 04/10/2021, Additional history exists DTap/Tdap Vaccines (3 - Td or Tdap) 04/28/2033 04/28/2023, 12/31/2017 (Declined), 04/19/2010 Pneumococcal Vaccine: 65+ Years Completed 01/30/2016, 08/23/2014 RETIRED - COLONOSCOPY-EVERY 5 YRS AGES 18-100 Discontinued 06/20/2021, 04/10/2021, 04/10/2021, Additional history exists VITAMIN D LEVEL ONCE IN A LIFETIME-USE SMARTSET# 12020 Completed 04/25/2023, 01/25/2022, 01/14/2019, Additional history exists Influenza Vaccine (FLU shot) Completed 04/20/2024, 07/04/2023, 07/04/2023, Additional history exists HPV (Gardasil) Vaccine Aged Out No lo nger eligible based on patient's age to complete this topic Hepatitis B Vaccine Aged Out No longe r eligible based on patient's age to complete this topic MENINGOCOCCAL (MENACTRA/MENVEO) Aged Out No longer eligible based on patient's age to complete this topic documented as of this encounter Medical Devices Implanted Type Area Barometers Calibrator Device Identifier Shelf Expiration Date Model / Serial / Lot Alloderm 2x4cm [id number] (8 Units) - [id number] Implanted:Qty : 8 on 05/25/2015 by Ambrose Mullen [place] [facility] [place] Tissue - Human N/A: Esophagus LIFE CELL AQUILINO 01/01/2017 [id number] / / [id number] Mesh Pelvic Gynamesh Gpsl - [id number] Implanted:Qty : 1 on 06/01/[address] [facility] [place] Bilateral: Pelvis [employer] AIC[employer] 08/04/2012 GPSL / / [id number] Clip Quick 2.8mm 230cm - [id number] Implanted:Qty : 3 on 04/10/2021 by Belinda Parikh MD at [facility] Colon [employer] 05/03/2022 [id number] A / / documented as of this encounter Visit Diagnoses Diagnosis Need for prophylactic vaccination and inoculation against influenza- Primary History of TIA (transient ischemic attack) Transient ischemic attack (TIA), and cerebral infarction without residual deficits Dysarthria Intractable chronic migraine without aura and without status migrainosus Chronic migraine without aura, with intractable migraine, so stated, without mention of status migrainosus documented in this encounter Advance Directives Documents on File Type Date Recorded Patient Nail Tech Expl anation Advance Directives and Living Will 03/29/2008 * Full Code (Latest Code Status on File) Date Activated Date Inactivated Comments 11/28/2021 3:33 PM 11/30/2021 3:14 PM Question Answer Comments Discussion of Advance Directives occurred with: Not Discussed Does the patient have a Living Will? No Does the patient have Health Care Power of Attor abram? No * Full Code Date Activated Date Inactivated Comments 05/25/2015 7:17 PM 05/27/2015 5:03 PM This order reflects the patients wishes and were consensually agreed upon. * Full Code Date Activated Date Inactivated Comments 05/25/2015 1:12 PM 05/25/2015 7:17 PM This order reflects the patients wishes and were consensually agreed upon. * Full Code Date Activated Date Inactivated Comments 06/01/2008 4:58 PM 06/02/2008 8:10 PM Care Teams [employer] Artistic Director Relationship Specialty Start Date End Date Ernestina Swanson DO [address] [place] [address] [place] [address] PCP - General Internal Medicine 06/11/23 documented as of this encounter"
--- OUTSIDE RECORDS SUMMARY | 2024-05-07 10:44 | External Medical Summary | Summary of Care ---
Author Name Unknown Organization [facility] Address [address] [place] [address] Phone [phone] Care Team Providers Care Staffing Specialist Name Role Phone Ernestina Swanson DO Primary Care Provider [phone] Reason for Visit * Reason Onset Date Comments Precert Approved 04/20/2024 UBRELVY Encounter Details Date Type Department Care Team (Late st Contact Info) Description 04/20/2024 Telephone Neurology [facility] [address] [place] [address] Willam Rivers DO [address] [place] [address] Precert Approved ( UBRELVY) Allergies Active Allergy Reactions Criticality Noted Date [...] as of this encounter (statuses as of 04/26/2024) Medications Medication Sig Dispensed Refills Start Date [...] HCl 4 MG/0.1ML Nasal Liquid Administer 1 [place] into nostril. 02/24/2023 Active Humira 40 MG/0.4ML [...] as of this encounter (statuses as of 04/26/2024) Active Problems Problem Noted Date Diagnosed Date [...] as of this encounter (statuses as of 04/26/2024) Resolved Problems Problem Noted Date Diagnosed Date [...] home patient encounter 02/29/2020 03/24/2023 Overview: Sees: [place] [facility] (Dr Carias), Dr Matute, Alfred Caballero (spinal stim), Dr Ortiz [facility] ortho. 11/22 EGD [facility] -gastritis. -TTE normal EF. LAE/CARMELINA, mild MR, mild-mod MR. 06/23 TTE normal EF mild LVH Gr I garcia dys 04/23 Quantiferon WNL Sacroiliitis 08/19/2019 06/03/2021 Recurrent major depressive d isorder, in partial remission 06/04/2018 03/24/2023 Somatic symptom disorder 08/12/201708/2017 CSA (central sleep apnea) 06/12/2017 Overview: CPAP 7 cwp [facility] Hx of nonmelanoma skin cancer 06/04/2017 03/24/2023 [...] pelvic, female 11/06/2011 018 Vasomotor headache 11/05/2011 1 Superficial bruising 11/05/2011 018 Hypothyroidism 08/23/2010 05/02/2021 [...] as of this encounter (statuses as of 04/26/2024) Immunizations Name Administration Dates Next Due COVID-19 [...] encounter Miscellaneous Notes * Telephone Encounter - Melanie Skaggs LPN - 04/20/2024 2:28 PM EDT Neurology Pre-Cert Request Medication/Disease State Information: Medication: Ubrelvy 50 mg 1 tablet at onset of migraine and may repeat in 2 hours if needed Diagnosis (including ICD-10): Migraine - Chronic Migraine G43.709 - Self- administered - route pre-cert request to [id number] See corresponding visit note(s) for additional supporting clinical information. Office Information: Prescriber: Willam Rivers DO documented in this encounter Plan of Treatment Upcoming Encounters Date Type Department Care Team (Late st Contact Info) Description 05/18/2024 11:00 AM EDT Office Visit Sleep Disorders Ctr [facility] [address] [place] [address] Ofe Toure DO [address] [place] [address] 05/28/2024 1:20 PM EDT Office Visit Rheumatology [address] [place] [phone] Roberth Roy MD [address] [place] [address] [place] [address] 09/13/2024 1:30 PM EST Office Visit Ophthalmology, [facility] [address] [place] [address] Timur Roque DO [address] [place] [address] 09/17/2024 2:30 PM EST Office Visit Family Medicine [address] [place] [phone] Ernestina Swanson [address] [place] [address] Health Maintenance Due Date Last Done Comments Alpha-1 Antitrypsin 1960 Zoster Vaccines (1 of 2) 1961 Adult Wellness Visit 2008 *BISPHONATE OR OTHER ACCEPTABLE MEDICATION NEEDED FOR OSTEOPOROSIS (REFER TO SMARTSET #1146) 03/03/2020 COVID-19 Vaccine (3 - Pfizer risk series) 05/15/2021 04/17/2021, 03/27/2021 GFR 10/05/2024 04/07/2024, 08/0 02/2024, 02/04/2024, Additional history exists Depression Monitoring 10/08/2024 10/09/2023 O2 ASSESSMENT COMPLETED IN PAST YEAR FOR COPD 10/09/2024 10/10/2023 CKD HGB USE SMARTSET 84905 11/13/202411/13, 10/09/2023, 10/09/2023, Additional history exists CKD PHOS USE SMARTSET 36687 02/03/2025 07/0 10/2023, 04/09/2022, 07/21/2014, Additional history exists TSH 03/10/2025 03/10/2024, 030 02/2024, 08/25/2023, Additional history exists Albumin/Creatinine Ratio 04/07/2025 04/07/2024, 09/0 01/2022 DXA Scan 04/10/2025 04/10/2023, 09/0 02/2023, 04/27/2020, Additional history exists Colonoscopy 06/20/2026 06/20/2021, 09/0 02/2021, 04/10/2021, Additional history exists DTap/Tdap Vaccines (3 - Td or Tdap) 04/28/2033 04/28/2023, 12/31/2017 (Declined), 04/19/2010 Pneumococcal Vaccine: 65+ Years Completed 01/30/2016, 08/23/2014 RETIRED - COLONOSCOPY-EVERY 5 YRS AGES 18-100 Discontinued 06/20/2021, 04/10/2021, 04/10/2021, Additional history exists VITAMIN D LEVEL ONCE IN A LIFETIME-USE SMARTSET# 91381 Completed 04/25/2023, 01/25/2022, 01/14/2019, Additional history exists [...] this encounter Medical Devices Implanted Type Area Rod Mill Tender Device Identifier Shelf Expiration Date Model / Serial / Lot Alloderm 2x4cm [id number] (8 Units) - [id number] Implanted:Qty : 8 on 05/25/2015 by Ambrose Mullen MD at OR [facility] [place] Tissue - Human N/A: Esophagus LIFE CELL AQUILINO 01/01/2017 [id number] / / [id number] Mesh Pelvic Gynamesh Gpsl - [id number] Implanted:Qty : 1 on 06/01/2008 at OR [facility] [place] Bilateral: Pelvis AICHA & AICHA 08/04/2012 GPSL / / [id number] Clip Quick 2.8mm 230cm - [id number] Implanted:Qty : 3 on 04/10/2021 by Belinda Parikh MD at ENDOSCOPY [facility] Colon [employer] 05/03/2022 [id number]. A / / documented as of this encounter Advance Directives Documents on File Type Date Recorded Patient Lotus Notes Developer Expl anation Advance Directives and Living Will [...] 4:58 PM 06/02/2008 8:10 PM Care Teams Staffing Specialist Relationship Specialty Start Date End Date Ernestina Swanson DO [address] [place] [address] [place] [address] PCP - General Internal Medicine 06/11/23 documented as of this encounter
--- OUTSIDE RECORDS SUMMARY | 2024-05-07 10:45 | External Medical Summary | Summary of Care ---
Author Name Unknown Organization [facility] Address [address] [place] [address] Phone [phone] Care Team Providers Care Artificial Flowers Starcher Name Role Phone Sylvester Vines DO Primary Care Provider [phone] Reason for Visit * Reason Onset Date Comments Medication Refill 04/09/2024 Encounter Details Date Type Department Care Team (Late st Contact Info) Description 04/09/2024 Refill Family Medicine [address] [place] [phone] Sylvester Vines DO [address] [place] [address] [place] [phone] Allergies Active Allergy Reactions Criticality Noted Date [...] as of this encounter (statuses as of 04/12/2024) Medications Medication Sig Dispensed Refills Start Date [...] or juice. 850 g 5 07/21/2020 Active HYDROcodone-Acetami nophen 10-325 MG Oral Tablet 03/23/2022 Active hydrOXYzine HCl 25 MG Oral [...] HCl 4 MG/0.1ML Nasal Liquid Administer 1 [place] into nostril. 02/24/2023 Active Humira 40 MG/0.4ML Subcutaneous Prefilled Syringe Kit (Adalimumab) Inject 0.4 mL under the skin once a week. 4.8 mL 3 05/08/2023 Active LORazepam 0.5 MG Oral Tablet (Ativan)Indications [...] Tablet Chewable 1 Tablet. 1 daily 10/03/2023 Active Atorvastatin Calcium 40 MG Oral Tablet (Lipitor) [...] the morning. 30 Tablet 5 04/12/2024 Active Lisinopril 10 MG Oral Tablet (Prinivil) Take 1 Tablet by mouth in the morning. 30 Tablet 5 03/03/2024 04/09/20 24 Discontinu ed(Refill) documented as of this encounter (statuses as of 04/12/2024) Active Problems Problem Noted Date Diagnosed Date [...] as of this encounter (statuses as of 04/12/2024) Resolved Problems Problem Noted Date Diagnosed Date [...] home patient encounter 02/29/2020 03/24/2023 Overview: Sees: [place] Arthritis (Dr Carias), Dr Matute, Alfred Fall (spinal stim), Dr Ortiz [facility] ortho. 11/22 EGD [facility] -gastritis. -TTE normal EF. LAE/CARMELINA, mild MR, mild-mod MR. 06/23 TTE normal EF mild LVH Gr I garcia dys 04/23 Quantiferon WNL Sacroiliitis 08/19/2019 06/03/2021 Recurrent major depressive d isorder, in partial remission 06/04/2018 03/24/2023 Somatic symptom disorder 08/12/201708/2017 CSA (central sleep apnea) 06/12/2017 Overview: CPAP 7 cwp [facility] Hx of nonmelanoma skin cancer 06/04/2017 [...] as of this encounter (statuses as of 04/12/2024) Immunizations Name Administration Dates Next Due COVID-19 [...] Telephone Encounter - Sylvester Vines DO - 04/12/2024 12:45 PM EDTSigned Prescriptions: Disp Refills Lisinopril 10 MG Oral Tablet (Prinivil) 30 Tab*5 Sig: Take 1 Tablet by mouth in the morning. Authorizing Provider: SYLVESTER VINES * Telephone Encounter - Suki Wahl RN - 04/12/2024 10:30 AM EDTPending Prescriptions: Disp Refills Lisinopril 10 MG Oral Tablet (Prinivil) 30 Tab*5 Sig: Take 1 Tablet by mouth in the morning. * Telephone Encounter - Rena Lovelace OSA - 04/09/2024 10:10 AM EDT Did you pend patient's preferred pharmacy and medication before forwarding?yes Pharmacy: [id number] [address] [facility] Pending Prescriptions: Disp Refills Lisinopril 10 MG Oral Tablet (Prinivil) 30 Tab*5 Sig: Take 1 Tablet by mouth in the morning. Last Visit: 02/04/2024 (in office), 08/21/2023 (telemedicine) Next Visit: 09/17/2024 If no future appointments scheduled, and last appointment is greater than a year ago, please schedule patient for a follow-up appointment Last date the medication was ordered: 03.03.2024 Is this request for a controlled substance?No 90 day refill request Urine Drug Screen: Results for orders placed [...] found in Results Review. Patient Phone Numbers [place] [phone] Labs: Lab Results Component Value Date/Time CREAT 0.9 04/07/2024 11:00 AM CREAT 1.06 11/14/2023 08:18 AM CREAT 0.7 06/05/2020 01:36 PM POTASSIUM 3.8 04/07/2024 11:00 AM POTASSIUM 4.5 11/14/2023 08:18 AM POTASSIUM 4.1 06/05/2020 01:36 PM TSH 3.07 03/10/2024 03:29 PM TSH 1.23 08/25/2023 12:00 AM TSH 1.43 07/07/2020 12:06 PM LDL 127 10/28/2018 08:41 AM LDL NOT APPLICABLE 10/28/2018 08:41 AM LDLCALC 135 11/10/2021 06:44 AM ALT 20 10/09/2023 12:26 PM ALT 38 (H) 06/05/2020 01:36 PM HGBA1C 5.4 10/24/2020 03:07 PM HGBA1C 5.2 03/17/2017 10:49 AM documented in this encounter Plan of Treatment Upcoming Encounters Date Type Department Care Team (Late st Contact Info) Description 05/18/2024 11:00 AM EDT Office Visit Sleep Disorders Ctr [facility] [address] [facility] [place] [phone] Ofe Toure DO [facility] [address] [place] [address] 05/28/2024 1:20 PM EDT Office Visit Rheumatology [address] [place] [phone] Roberth Roy MD [facility] [place] [address] 09/13/2024 1:30 PM EST Office Visit Ophthalmology, [facility] [address] [facility] [place] [address] Timur Roque, DO [address] [place] [address] 09/17/2024 2:30 PM EST Office Visit Family Medicine [address] [place] [phone] Sylvester Vines, [address] [facility] [place] [address] Health Maintenance Due Date Last Done Comments Alpha-1 Antitrypsin 1960 Zoster Vaccines (1 of 2) 1961 Adult Wellness Visit 2008 *BISPHONATE OR OTHER ACCEPTABLE MEDICATION NEEDED FOR OSTEOPOROSIS (REFER TO SMARTSET #1146) 03/03/2020 COVID-19 Vaccine (3 - Pfizer risk series) 05/15/2021 04/17/2021, 03/27/2021 Influenza Vaccine (FLU shot) (#1) 2024 07/04/2023, 07/04/2023, 04/17/2022, Additional history exists GFR 10/05/2024 04/07/2024, 0 02/2024, 02/04/2024, Additional history exists Depression Monitoring 10/08/2024 10/09/2023 O2 ASSESSMENT COMPLETED IN PAST YEAR FOR COPD 10/09/2024 10/10/2023 CKD HGB USE SMARTSET 59686 11/13/202411/13, 10/09/2023, 10/09/2023, Additional history exists CKD PHOS USE SMARTSET 70290 02/03/2025 070 10/2023, 04/09/2022, 07/21/2014, Additional history exists TSH 03/10/2025 03/10/2024, 0 02/2024, 08/25/2023, Additional history exists Albumin/Creatinine Ratio 04/07/2025 04/07/2024, 090 01/2022 DXA Scan 04/10/2025 04/10/2023, 090 02/2023, 04/27/2020, Additional history exists Colonoscopy 06/20/2026 06/20/2021, 0 02/2021, 04/10/2021, Additional history exists DTap/Tdap Vaccines (3 - Td or Tdap) 04/28/2033 04/28/2023, 12/31/2017 (Declined), 04/19/2010 Pneumococcal Vaccine: 65+ Years Completed 01/30/2016, 08/23/2014 RETIRED - COLONOSCOPY-EVERY 5 YRS AGES 18-100 Discontinued 06/20/2021, 04/10/2021, 04/10/2021, Additional history exists VITAMIN D LEVEL ONCE IN A LIFETIME-USE SMARTSET# 76652 Completed 04/25/2023, 01/25/2022, 01/14/2019, Additional history exists HPV (Gardasil) Vaccine Aged Out No lo nger eligible based on patient's age to complete this topic Hepatitis B Vaccine Aged Out No longe r eligible based on patient's age to complete this topic MENINGOCOCCAL (MENACTRA/MENVEO) Aged Out No longer eligible based on patient's age to complete this topic documented as of this encounter Medical Devices Implanted Type Area Front Office Representative Device Identifier Shelf Expiration Date Model / Serial / Lot Alloderm 2x4cm [id number] (8 Units) - [id number] Implanted:Qty : 8 on 05/25/2015 [place] [facility] [place] - Human N/A: Esophagus LIFE CELL AQUILINO 01/01/2017 [id number] / / [id number] Mesh Pelvic Gynamesh Gpsl - [id number] Implanted:Qty : 1 on 06[place]01/2008 [place] [facility] [place] Bilateral: Pelvis AICHA & AICHA 08/04/2012 GPSL / / [id number] Clip Quick 2.8mm 230cm - [id number] Implanted:Qty : 3 on 04/10/2021 by Belinda Parikh MD at [facility]COPY [facility] Colon [employer] 05/03/2022 [id number]. A / / documented as of this encounter Advance Directives Documents on File Type Date Recorded Patient Addiction Counselor Expl anation Advance Directives and Living Will [...] 4:58 PM 06/02/2008 8:10 PM Care Teams Artificial Flowers Starcher Relationship Specialty Start Date End Date Sylvester Vines DO [address] [place] [address] [place] [phone] PCP - General Internal Medicine 06/11/23 documented as of this encounter
--- OUTSIDE RECORDS SUMMARY | 2024-05-07 10:45 | External Medical Summary | Summary of Care ---
Author Name Unknown Organization [facility] Address [address] [place] [address] Phone [phone] Care Team Providers Care Construction Plant Operator Name Role Phone Sylvester Vines DO Primary Care Provider [phone] Reason for Visit * Reason Onset Date Comments Medication Refill 04/19/2024 Encounter Details Date Type Department Care Team (Late st Contact Info) Description 04/19/2024 Refill Family Medicine [address] [place] [phone] Sylvester Vines DO [address] [place] [address] [place] [phone] Pruritus Allergies Active Allergy Reactions Criticality Noted Date [...] as of this encounter (statuses as of 04/19/2024) Medications Medication Sig Dispensed Refills Start Date [...] nophen 10-325 MG Oral Tablet 03/23/2022 Active oxygen IN GASIndications:Noct urnal hypoxemia,Chronic diastolic [...] HCl 4 MG/0.1ML Nasal Liquid Administer 1 [place] into nostril. 02/24/2023 Active Humira 40 MG/0.4ML [...] 04/12/2024 Active hydrOXYzine HCl 25 MG Oral TabletIndications:P ruritus 1-2 pills before bed for itching as needed. 60 Tablet 2 04/19/2024 Active hydrOXYzine HCl 25 MG Oral TabletIndications:P ruritus 1-2 pills before bed for itching as needed. 60 Tablet 2 05/14/2022 04/19/20 24 Discontinu ed(Refill) documented as of this encounter (statuses as of 04/19/2024) Active Problems Problem Noted Date Diagnosed Date [...] as of this encounter (statuses as of 04/19/2024) Resolved Problems Problem Noted Date Diagnosed Date [...] home patient encounter 02/29/2020 03/24/2023 Overview: Sees: [place] Arthritis (Dr Carias), Dr Matute, Alfred Fall (spinal stim), Dr Ortiz [facility] ortho. 11/22 EGD [facility] -gastritis. -TTE normal EF. LAE/CARMELINA, mild MR, mild-mod MR. 06/23 TTE normal EF mild LVH Gr I garcia dys 04/23 Quantiferon WNL Sacroiliitis 08/19/2019 06/03/2021 Recurrent major depressive d isorder, in partial remission 06/04/2018 03/24/2023 Somatic symptom disorder 08/12/201708/2017 CSA (central sleep apnea) 06/12/2017 Overview: CPAP 7 cwp [facility] Hx of nonmelanoma skin cancer 06/04/2017 [...] as of this encounter (statuses as of 04/19/2024) Immunizations Name Administration Dates Next Due COVID-19 [...] Telephone Encounter - Sylvester Vines DO - 04/19/2024 10:20 AM EDTSigned Prescriptions: Disp Refills hydrOXYzine HCl 25 MG Oral Tablet 60 Tab*2 Si-2 pills before bed for itching as needed. Authorizing Provider: SYLVESTER VINES * Telephone Encounter - Padmini Carcamo [facility] - 04/19/2024 9:22 AM EDTPending Prescriptions: Disp Refills hydrOXYzine HCl 25 MG Oral Tablet 60 Tab*2 Si-2 pills before bed for itching as needed. * Telephone Encounter - Shruthi Geronimo, assistant athletic trainer - 04/19/2024 9:18 AM EDT Patients daughter is requesting high priority due to patient itching Did you pend patient's preferred pharmacy and medication before forwarding?yes [facility]acy: [id number] [address] [facility] Pending Prescriptions: Disp Refills hydrOXYzine HCl 25 MG Oral Tablet 60 Tab*2 Si-2 pills before bed for itching as needed. Last Visit: 02/04/2024 (in office), 08/21/2023 (telemedicine) Next Visit: 09/17/2024 If no future appointments scheduled, and last appointment is greater than a year ago, please schedule patient for a follow-up appointment Last date the medication was ordered: 05/14/2022 Is this request for a controlled substance?No [...] 04/20/2024 11:20 AM EDT Office Visit Neurology [facility] [address] [facility] [place] [address] Willam Rivers, DO [address] [facility] [place] [address] 05/18/2024 11:00 AM EDT [facility] [address] [place] [phone] Ofe Toure, DO [address] [place] [address] 05/28/2024 1:20 PM EDT Office Visit Rheumatology [address] [place] [phone] Roberth Roy MD [address] [place] [address] 09/13/2024 1:30 PM EST Office Visit Ophthalmology, [facility] [address] [place] [address] Timur Rqoue, DO [address] [place] [address] 09/17/2024 2:30 PM EST Office Visit Family [address] [place] [phone] [address] [place] [address] Health Maintenance Due Date Last Done Comments Alpha-1 Antitrypsin 1960 Zoster Vaccines (1 of 2) 1961 Adult Wellness Visit 2008 *BISPHONATE OR OTHER ACCEPTABLE MEDICATION NEEDED FOR OSTEOPOROSIS (REFER TO SMARTSET #1146) 03/03/2020 COVID-19 Vaccine (3 - Pfizer risk series) 05/15/2021 04/17/2021, 03/27/2021 Influenza Vaccine (FLU shot) (#1) 2024 07/04/2023, 07/04/2023, 04/17/2022, Additional history exists GFR 10/05/2024 04/07/2024, 02/2024, 02/04/2024, Additional history exists Depression Monitoring 10/08/2024 10/09/2023 O2 ASSESSMENT COMPLETED IN PAST YEAR FOR COPD 10/09/2024 10/10/2023 CKD HGB USE SMARTSET 47131 11/13/202411/13, 10/09/2023, 10/09/2023, Additional history exists CKD PHOS USE SMARTSET 67945 02/03/2025 07/0 10/2023, 04/09/2022, 07/21/2014, Additional history exists TSH 03/10/2025 03/10/2024, 0 02/2024, 08/25/2023, Additional history exists Albumin/Creatinine Ratio 04/07/2025 04/07/2024, 01/2022 DXA Scan 04/10/2025 04/10/2023, 0 02/2023, 04/27/2020, Additional history exists Colonoscopy 06/20/2026 06/20/2021, 02/2021, 04/10/2021, Additional history exists DTap/Tdap Vaccines (3 - Td or Tdap) 04/28/2033 04/28/2023, 12/31/2017 (Declined), 04/19/2010 Pneumococcal Vaccine: 65+ Years Completed 01/30/2016, 08/23/2014 RETIRED - COLONOSCOPY-EVERY 5 YRS AGES 18-100 Discontinued 06/20/2021, 04/10/2021, 04/10/2021, Additional history exists VITAMIN D LEVEL ONCE IN A LIFETIME-USE SMARTSET# 35517 Completed 04/25/2023, 01/25/2022, 01/14/2019, Additional history exists [...] this encounter Medical Devices Implanted Type Area Sericulture Teacher Device Identifier Shelf Expiration Date Model / Serial / Lot Alloderm 2x4cm [id number] (8 Units) - [id number] Implanted:Qty : 8 on 05/25/2015 by Ambrose Mullen MD at [place] [facility] [place] Tissue - Human N/A: Esophagus LIFE CELL AQUILINO 01/01/2017 [id number] / / [id number] Mesh Pelvic Gynamesh Gpsl - [id number] Implanted:Qty : 1 on 06/01/2008 at OR [facility] [place] Bilateral: Pelvis [employer] 08/04/2012 GPSL / / [id number] Clip Quick 2.8mm 230cm - [id number] Implanted:Qty : 3 on 04/10/2021 by Belinda Parikh MD at ENDOSCOPY [facility] Colon [employer] 05/03/2022 [id number]. A / / documented as of this encounter Visit Diagnoses Diagnosis Pruritus Unspecified pruritic disorder documented in this encounter Advance Directives Documents on File Type Date Recorded Patient Sap Data Architect Expl anation Advance Directives and Living Will [...] 4:58 PM 06/02/2008 8:10 PM Care Teams Construction Plant Operator Relationship Specialty Start Date End Date Sylvester Vines DO [address] [place] [address] [place] [address] PCP - General Internal Medicine 06/11/23 documented as of this encounter
--- OUTSIDE RECORDS SUMMARY | 2024-05-07 10:45 | External Medical Summary | Summary of Care ---
Author Name Unknown Organization [facility] Address [address] [place] [address] Phone [phone] Care Team Providers Care Master Coastal Waters Name Role Phone Ernestina Swanson DO Primary Care Provider Reason for Visit * Reason Onset Date Comments Appointment 04/09/2024 Encounter Details Date Type Department Care Team (Late st Contact Info) Description 04/09/2024 Telephone Neurology [facility] [address] [place] [phone] Willam Rivers DO [address] [place] [address] Appointment Allergies Active Allergy Reactions Criticality Noted Date [...] as of this encounter (statuses as of 04/13/2024) Medications Medication Sig Dispensed Refills Start Date [...] HCl 4 MG/0.1ML Nasal Liquid Administer 1 Bushnell into nostril. 02/24/2023 Active Humira 40 MG/0.4ML [...] as of this encounter (statuses as of 04/13/2024) Active Problems Problem Noted Date Diagnosed Date [...] as of this encounter (statuses as of 04/13/2024) Resolved Problems Problem Noted Date Diagnosed Date [...] home patient encounter 02/29/2020 03/24/2023 Overview: Sees: [facility] (Dr Carias), Dr Matute, Alfred Caballero (spinal stim), Dr Ortiz [facility] ortho. 11/22 EGD [facility] -gastritis. -TTE normal EF. LAE/CARMELINA, mild MR, [...] as of this encounter (statuses as of 04/13/2024) Immunizations Name Administration Dates Next Due COVID-19 mRNA, LNP-s, No Pre serve, 2-Dose Series ([employer]) 04/17/2021,03/27/2021 Pneumococcal Conjugate Vacc, 13 Valent (Prevnar) [...] encounter Miscellaneous Notes * Telephone Encounter - Terra Dangelo OSA - 04/13/2024 11:39 AM EDT scheduled * Telephone Encounter - Melanie Skaggs LPN - 04/09/2024 12:16 PM EDT Received communication paperwork from [facility]. Patient is having a hip replacement on 05/07/24 and due to her stroke hx, they state she needs Neurology clearance. She has not beenseen since April 2023. Please assist pt with scheduling an appt before surgery date, if able, thank you. documented in this encounter Plan of Treatment Upcoming Encounters Date Type Department Care Team (Late st Contact Info) Description 04/20/2024 11:20 AM EDT Office Visit Neurology [facility] [place] [address] [place] [address] Willam Rivers, DO [address] [facility] [place] [address] 05/18/2024 11:00 AM EDT Office Visit Sleep Disorders [facility] [place] [address] [place] [phone] Ofe Toure, DO [address] [place] [address] 05/28/2024 1:20 PM EDT Office Visit Rheumatology [address] [place] [phone] Roberth Roy MD [address] [place] [address] [place] [address] 09/13/2024 1:30 PM EST Office Visit Ophthalmology, [facility] [address] [place] [address] Timur Roque DO [address] [place] [address] 09/17/2024 2:30 PM EST Office Visit Family Medicine [address] [place] [phone] Ernestina Swanson [address] [place] [phone] Health Maintenance Due Date Last Done Comments Alpha-1 Antitrypsin 1960 Zoster Vaccines (1 of 2) 1961 Adult Wellness Visit 2008 *BISPHONATE OR OTHER ACCEPTABLE MEDICATION NEEDED FOR OSTEOPOROSIS (REFER TO SMARTSET #1146) 03/03/2020 COVID-19 Vaccine (3 - Pfizer risk series) 05/15/2021 04/17/2021, 03/27/2021 Influenza Vaccine (FLU shot) (#1) 2024 07/04/2023, 07/04/2023, 04/17/2022, Additional history exists GFR 10/05/2024 04/07/2024, 08/0 02/2024, 02/04/2024, Additional history exists Depression Monitoring 10/08/2024 10/09/2023 O2 ASSESSMENT COMPLETED IN PAST YEAR FOR COPD 10/09/2024 10/10/2023 CKD HGB USE SMARTSET 13467 11/13/202411/13, 10/09/2023, 10/09/2023, Additional history exists CKD PHOS USE SMARTSET 06734 02/03/2025 07/0 10/2023, 04/09/2022, 07/21/2014, Additional history exists TSH 03/10/2025 03/10/2024, 03/0 02/2024, 08/25/2023, Additional history exists Albumin/Creatinine Ratio [...] D LEVEL ONCE IN A LIFETIME-USE SMARTSET# 71571 Completed 04/25/2023, 01/25/2022, 01/14/2019, Additional history exists [...] this encounter Medical Devices Implanted Type Area Fruit Grading Supervisor Device Identifier Shelf Expiration Date Model / Serial / Lot Alloderm 2x4cm [id number] (8 Units) - [id number] Implanted:Qty : 8 on 05/25/2015 by Ambrose Mullen MD at OR [facility] Tissue - Human N/A: Esophagus LIFE CELL AQUILINO 01/01/2017 [id number] / / [id number] Mesh Pelvic Gynamesh Gpsl - [id number] Implanted:Qty : 1 on 06/01/2008 at OR [facility] Bilateral: Pelvis AICHA & AICHA 08/04/2012 GPSL / / [id number] Clip Quick 2.8mm 230cm - [id number] Implanted:Qty : 3 on 04/10/2021 by Belinda Parikh MD at ENDOSCOPY [facility] [address] Colon [employer]mi INC 05/03/2022 [id number]. A / / documented as of this encounter Advance Directives Documents on File Type Date Recorded Patient Jumpbasting Collar Baster Expl anation Advance Directives and Living Will [...] 4:58 PM 06/02/2008 8:10 PM Care Teams Master Coastal Waters Relationship Specialty Start Date End Date Ernestina Swanson DO [address] [place] [address] [place] [phone] PCP - General Internal Medicine 06/11/23 documented as of this encounter
--- NOTE | 2024-05-07 10:54 | XRay Report ---
XR hip 1V RT w pelvis CLINICAL HISTORY: Postoperative evaluation. COMPARISON: Right hip radiographs March 31, 2024. FINDINGS: Alignment of the total right hip arthroplasty is anatomic. There is no periprosthetic frac ture. Lucency projecting over the greater trochanter of the right femur is likely due to overlying so ft tissue gas. There are skin jami. There are no unexpected radiopaque foreign bodies. IMPRESSION: Expected findings following total right hip arthroplasty. ACT 112: Negative or not required by law. Electronically signed by: Kwasi Muhammad M.D. 05/07/2024 10:52 AM
[2024-05-07] MEDS ORDERED: MULTIVITAMIN TAB PO SCH (12:35)
[2024-05-07] MEDS ORDERED: DICYCLOMINE HCL 10 MG CAP PO PRN (12:35)
[2024-05-07] MEDS ORDERED: POLYETHYLENE (MIRALAX) 17 GM PACK PO PRN (12:35)
[2024-05-07] MEDS ORDERED: SUCRALFATE 1 GM/10 ML UDC PO PRN (12:35)
[2024-05-07] MEDS ORDERED: METOCLOPRAMIDE HCL INJ 5 MG/ML 2 ML VIAL IV PRN (12:35)
[2024-05-07] MEDS ORDERED: bisacodyL 10 MG SUPP PR PRN (12:35)
[2024-05-07] MEDS ORDERED: NALOXONE HCL 0.4 MG/1 ML VIAL/CARP IV PRN (12:35)
[2024-05-07] MEDS ORDERED: MAGNESIUM HYDROXIDE SUSP 30 ML UDC PO PRN (12:35)
[2024-05-07] MEDS: SODIUM CHLORIDE 0.9% 1,000 ML IV SCH (13:10)
[2024-05-07] MEDS: FUROSEMIDE 20 MG TAB PO SCH (13:11)
[2024-05-07] MEDS: DOCUSATE SODIUM 100 MG CAP PO SCH (13:11)
[2024-05-07] MEDS: ATORVASTATIN 40 MG TAB PO SCH (14:49)
[2024-05-07] MEDS: DULoxetine HCL 60 MG CAP PO SCH (14:49)
[2024-05-07] MEDS: fentaNYL 25 MCG/HR TDSY TD SCH (14:55)
[2024-05-07] MEDS: ASPIRIN 81 MG ECTAB PO SCH (14:56)
[2024-05-07] MEDS: PANTOprazole 40 MG TAB PO SCH (14:56)
[2024-05-07] MEDS: CHECK fentaNYL PATCH PLACEMENT SCH (14:56)
[2024-05-07] MEDS: SENNA 8.6 MG TAB PO SCH (20:23)
[2024-05-07] MEDS: ARIPIprazole 1 MG/ML ORAL SOLN 150 ML BTL PO SCH (20:23)
[2024-05-07] MEDS ORDERED: ARIPIprazole 1 MG/ML ORAL SOLN 150 ML BTL PO SCH (21:00)
[2024-05-08] MEDS: HYDROmorphone INJ 0.5 MG/0.5 ML SYR IV PRN (03:10)
[2024-05-08] MEDS: HYDROcodone/ACETAMINOPHEN 10/325 TAB PO PRN (06:09)
[2024-05-08] MEDS: LEVOTHYROXINE SODIUM 75 MCG TABLET PO SCH (06:11)
[2024-05-08] MEDS ORDERED: LEVOTHYROXINE SODIUM 50 MCG TABLET PO SCH (06:30)
--- NOTE | 2024-05-08 06:49 | Orthopedic Progress Note ---
Date of Service May 08, 2024 Assessment & Plan (1) Status post right hip replacement: Overall she is doing well. She is not having much pain in the right hip. She will be seen by physical therapy today for ambulation and range of motion exercises. She is on aspirin and Plavix for DVT prophylaxis. Will see how she does today with therapy. If she passes physical therapy she can be discharged to home today, otherwise she can stay until tomorrow. Will see how she does. Va Vanegas was seen and examined at bedside this morning. Overall she is doing fairly well. She is starting to have more pain in the right hip. She has been up and ambulating to the bathroom. She is no complaints.. Review of Systems All systems reviewed & are unremarkable except as noted in HPI & below. Physical Exam On physical examination of the right hip, the dressing is clean and dry. Her leg is out full extension. She has active dorsiflexion plantarflexion of her right ankle.. Results & Data Results & Data Laboratory Results . Diagnostic Findings Postoperative x-rays of the right hip show the prosthesis to be in anatomic alignment without any evidence of fracture complication, or loosening.. PG Care Time/CCT Total # of Minutes Spent Total Time Spent with Patient: Total time spent is greater than 50% in coordination of care (as documented) at patient's floor/unit and/or counseling patient: Coding Level of Care Code 93528 Post Operative Follow-Up Diagnoses Status post right hip replacement Z96.641
[2024-05-08] MEDS: oxyCODONE HCL IR 5 MG TAB (IMMEDIATE RELEASE) PO PRN (08:07)
[2024-05-08] MEDS: dexAMETHasone 4 MG TAB PO SCH (08:15)
[2024-05-08] MEDS: MULTIVITAMIN TAB PO SCH (08:16)
[2024-05-08] MEDS: CEROVITE ADV FORMULA TAB PO SCH (08:17)
[2024-05-08] MEDS: CLOPIDOGREL BISULFATE 75 MG TAB PO SCH (08:17)
[2024-05-09] MEDS: LEVOTHYROXINE SODIUM 50 MCG TABLET PO SCH (05:59)
--- NOTE | 2024-05-09 06:42 | Orthopedic Progress Note ---
Date of Service May 09, 2024 Assessment & Plan (1) Status post right hip replacement: Overall she is doing well with her progress. She is not having too much pain in the right hip. She will be seen by physical therapy today for ambulation and range of motion exercises. She is on aspirin and Plavix for DVT prophylaxis. She can be discharged home later today. She will follow-up with orthopedics in 2 weeks. Va Vanegas was seen and examined at bedside this morning. Overall she is doing much better. She had a lot of pain yesterday but it seemed to improve some overnight. She is hoping to go home today.. Review of Systems All systems reviewed & are unremarkable except as noted in HPI & below. Physical Exam On physical examination of the right hip, the dressing is clean and dry. Her leg is out full extension. She has active dorsiflexion plantarflexion of her right ankle.. Results & Data Results & Data Laboratory Results . Diagnostic Findings . PG Care Time/CCT Total # of Minutes Spent Total Time Spent with Patient: Total time spent is greater than 50% in coordination of care (as documented) at patient's floor/unit and/or counseling patient: Coding Level of Care Code 32858 Post Operative Follow-Up Diagnoses Status post right hip replacement Z96.641
--- NOTE | 2024-05-09 06:43 | Discharge Summary ---
Date of Service May 09, 2024 Admission HPI (Per Admitting) Romina is a pleasant 83-year-old female who has been dealing with chronic increasing right hip and groin pain. She does have a history of rheumatoid arthritis. Her hip has been much worse recently. It is to the point where she is having trouble even ambulating with a rolling walker. Her is having trouble taking care of her. X-rays and clinical examination been diagnostic for worsening osteoarthritis of the right hip. After failed conservative treatment, she has elected to proceed with a right anterior total of arthroplasty. Admission Exam (Per Admitting) On physical examination of the right hip, she has decreased range of motion. She has pain with forced internal and external rotation. All of her pain is located in the groin.. Principal Diagnosis Same as "Discharge Diagnosis" noted below under Discharge Instructions. Discharge Exam On physical examination of the right hip, the dressing is clean and dry. Her leg is out full extension. She has active dorsiflexion plantarflexion of her right ankle.. Discharge Data Procedures Performed Operation Date: 05/07/24 07:00 Actual Procedures p Right Anterior Total Hip Arthroplasty(Right) - Roberth Ortiz DO Ordered Studies 05/07/24 07:00 FL hip RT 1V Routine Hospital Course (1) Status post right hip replacement: On May 07, 2024 Romina arrived at [facility] and underwent a right hip replacement without complication. She had a spinal anesthetic. Postoperatively she was started on aspirin and Plavix for DVT prophylaxis and transferred to the general orthopedic floors. Her hospital course was uneventful. On postop day #1, her vital signs were stable and her pain was well-controlled. She was able to participate well with physical therapy doing ambulation and range of motion exercises. She was then discharged home. She will follow-up orthopedics in 2 weeks. PG Care Time/CCT Total # of Minutes Spent Total Time Spent with Patient: Total time spent is greater than 50% in coordination of care (as documented) at patient's floor/unit and/or counseling patient: Discharge Plan Discharge Items Patient Disposition: Home - Self-Care Reason For Visit: Left Hip Arthritis Discharge Diagnosis: Left hip replacement Activity: As commented below Non-emergency contact: Surgeon Call non-emergency contact if: your wound has increased redness and your wound has increased drainage Follow-up/Referrals: Swanson,Ernestina M., DO [Primary Care Provider] - Diet: Regular Addtl Attending Provider Instructions: Activity and Therapy Recommendations: * If you are using [facility] then therapy will be provided at your home until they feel you have accomplished all of your goals. * If you are using [facility] then Physical Therapy will be provided until they feel you are ready to start Outpatient Physical Therapy. * If you are not using home therapy then Outpatient Physical Therapy should start about 3-5 days from your day of surgery. Therapy will last about 6-10 weeks * You were shown a series of exercises in the hospital. Do these exercises three times each day including the exercises you were shown in physical therapy. * Get up and walk several times each day.~ For the first four weeks, try not to stand or walk for more than one hour at a time. If you do stand or walk for more than one hour, you will not hurt anything, but your leg will likely swell.~~ * As you feel comfortable, you may change from the walker or crutches to a cane and~then to independent walking. Medications: * Narcotic You will likely be sent home from the hospital with a prescription for the narcotic pain medication that worked best throughout your stay. * Cefadroxil -take the antibiotic twice a day for 10 days to help prevent infection. * Continue your Plavix as prescribed. * Other medications may be prescribed for specific circumstances. If you have any questions, please call the office at . * Resume previous home medications unless otherwise instructed TEDs/Elastic Stockings: The white elastic stockings help limit swelling and prevent blood clots from forming in your legs. The more you wear them, the more they work. Wear them for six weeks. Dressing Care: Leave the Silverlon dressing in place for 7 days. After 7 days you may remove the dressing. If the incision is not draining then you may leave the jami open to air. If there is a little bit of drainage or if the jami are getting stuck on your clothing then cover the incision with a dry dressing. The jami will be removed at your 2 week follow-up appointment. Showering: You may shower with the Silverlon dressing in place. Do not let the shower spray hit the dressing directly. Pat the Silverlon dressing dry. If the dressing becomes wet underneath, then simply remove the dressing. Keep the incision dry until you are 7 days out from the day of surgery. After 7 days you may remove the Silverlon dressing and shower with the jami exposed. Let soapy water run over the jami and pat them dry. Do not scrub or soak the incision. Diet: You may resume your previous diet. Things To Watch For: * Drainage from the incision site that occurs more than one week after your surgery. * Increased redness at the incision site. * Fever above 102 degrees Fahrenheit. * Unusual chest pain or shortness of breath. * Call [facility] at with any of the above problems Follow-Up Visit: Follow-up with Dr. Ortiz's PA (Roberth Washington) 2-3 weeks after your day of s urgery. He will remove your jami and answer any questions. If you have any additional questions or concerns, Dr Ortiz is usually in the office at the same time and will be available An appointment was probably scheduled when you signed-up for surgery in the office. If you have any questions call Office Instructions: More detailed instructions as well as Frequently Asked Questions were provided in a folder by our office when you signed-up for surgery. Please review these instructions when you get home. If you have any further questions or concerns, please feel free to call the office at [phone] Pending Studies at Discharge: No Stand-Alone Forms: My [facility], Smoking Cessation Medications and DC Order Prescriptions: New oxycodone 5 mg Tablet 5 mg PO Q4H PRN (Reason: pain) Qty: 30 0RF cefadroxil 500 mg capsule 500 mg PO BID 10 Days Qty: 20 0RF Continued sucralfate 100 mg/mL suspension 5 ml PO DAILY PRN (Reason: Abdominal Pain) calcium-vitamin D3-vitamin K [Viactiv] 650 mg-12.5 mcg-40 mcg Tablet,Chewable 1 tab PO BID hydrocodone-acetaminophen 10-325 mg Tablet 1 tab PO Q4H PRN (Reason: Pain) lorazepam 0.5 mg Tablet 0.5 mg PO DAILY PRN (Reason: Anxiety) pantoprazole 40 mg Tablet,Delayed Release (Dr/Ec) 40 mg PO BID levothyroxine 50 mcg Tablet 50 mcg PO Q2D Rx Instructions: ALTERNATE WITH 75MCG PreserVision AREDS 2 Plus MV 200 mcg-15 mcg- 5 mg-1 mg Capsule 1 cap PO BID polyethylene glycol 3350 [Miralax] 17 gram powder in packet 17 g PO UD PRN (Reason: Constipation) Centrum 18-400 mg-mcg Tablet 1 tab PO QAM levothyroxine 75 mcg Tablet 75 mcg PO Q2D Rx Instructions: ALTERNATE WITH 50MCG dicyclomine 10 mg capsule 10 mg PO QID PRN (Reason: Abdominal Pain) Humira 40 mg/0.8 mL Syringe Kit 40 mg SUBCUT Q7D Rx Instructions: SATURDAYS. fentanyl 25 mcg/hr patch 72 hour 1 patch transdermal Q72H famotidine 20 mg tablet 20 mg PO HS duloxetine 60 mg capsule,delayed release(DR/EC) 60 mg PO QAM furosemide 20 mg tablet 20 mg PO QAM atorvastatin 40 mg Tablet 40 mg PO QAM Qty: 30 0RF clopidogrel 75 mg tablet 75 mg PO QAM aripiprazole 2 mg tablet 2 mg PO HS collagen 1 dose PO QAM Rx Instructions: liquid collagen aspirin [Children's Aspirin] 81 mg tablet,chewable 81 mg PO QAM Discharge Orders: Discharge Order (Routine); Ordered 05/09/24 Ordered By: Roberth Ortiz Admission Data Admit Date/Time: 05/07/24 08:35 Attending Provider: Roberth Ortiz Admit Provider: Roberth Ortiz Primary Care Provider: Ernestina Swanson
--- NOTE | 2024-05-09 10:15 | XRay Report ---
XR hips JANIS 1v w pelvis CLINICAL HISTORY: falls COMPARISON: Pelvis and right hip radiographs April 07, 2024. FINDINGS: Postoperative findings within the lumbosacral spine are incidentally noted. There is no le ft hip fracture. There is moderate left hip osteoarthritis. Alignment of the right hip arthroplasty i s anatomic. There are skin jami. There are no unexpected radiopaque foreign bodies. Lucency and fr agmentation within the greater trochanter of the right femur is noted. Several adjacent bone fragment s are present. The lucencies extend to the proximal aspect of the femoral component of the hip arthro plasty. There are old, healed right pubic ring fractures. A lucency projects superior to the right ac etabulum. IMPRESSION: 1. Status post right hip arthroplasty. Lucencies and fragmentation of the greater trochanter of the r ight femur, as described above. This suggests a periprosthetic fracture. A CT could be obtained for f urther evaluation. This finding will be called/faxed to the ordering provider at time of dictation. 2. Lucency which projects superior to the right acetabulum. This could reflect a nondisplaced acetabu lar fracture which can be assessed by CT. ACT 112: Negative or not required by law. Electronically signed by: Kwasi Muhammad M.D. 05/09/2024 10:13 AM
--- NOTE | 2024-05-09 10:17 | CT Scan Report ---
CT OF THE HEAD WITHOUT CONTRAST CLINICAL HISTORY: fall COMPARISON STUDY: MRI of the brain and head CT October 01, 2023. CT DOSE: 625.8 mGy.cm TECHNIQUE: Helical axial images of the head were obtained without IV contrast. Automated exposure con trol was utilized for the study. A dose lowering technique was utilized adhering to the principles o f ALARA. FINDINGS: No acute intracranial hemorrhage, midline shift or mass effect is present. The ventricular system is stable. White matter hypodensities are unchanged and suggest small vessel disease. The basa l cisterns are patent. No extra-axial collections are present. There are no findings to suggest acute dural sinus thrombosis or acute territorial infarct. No significant calvarial abnormalities are pres ent. Visualized portions of the sinuses and mastoid air cells are clear. IMPRESSION: 1. No acute intracranial findings. 2. No calvarial fractures. ACT 112: Negative or not required by law. Electronically signed by: Kwasi Muhammad M.D. 05/09/2024 10:16 AM
--- NOTE | 2024-05-09 10:48 | Orthopedic Progress Note ---
Date of Service May 09, 2024 Assessment & Plan (1) Status post right hip replacement: Plan CT demonstrates no acute intracranial process. X-ray of the right hip demonstrates fracture of the greater trochanter, however upon further investigation this appears similar to the immediate postoperative x-rays. I got in touch with the patient surgeon, Dr. Ortiz and informed him. He recommended the patient remain in the hospital until tomorrow due to this new fall Admission and Anticipated Discharge Date Admission Date: May 07, 2024 Orthopedic Progress Note Patient reportedly sustained a fall this morning in the bathroom. She hit her head and fell onto her left side. I was called about this fall and orders were placed for CT of the head and x-ray of her postoperative right hip. Patient is endorsing no new areas of pain. She does not have a headache. Mildly worse pain in her right hip than previous.
[2024-05-09] MEDS: ONDANSETRON INJ 2 MG/ML 2 ML VIAL IV PRN (13:06)
[2024-05-09] MEDS: LORazepam 0.5 MG TAB PO PRN (17:42)
[2024-05-09 19:04] VITALS: O2SAT 94
[2024-05-10 07:37] VITALS: BP 106/66; PULSE 75; RESP 16; TEMP 98.1
--- NOTE | 2024-05-10 15:52 | Orthopedic Progress Note ---
Date of Service May 10, 2024 Assessment & Plan (1) Status post right hip replacement: Overall she is feeling much better. She does not feel she injured her hip in the fall. She will be seen by physical therapy today for ambulation and range of motion exercises. She can be discharged home later today. She will follow- up with orthopedics in 2 weeks. Va Vanegas was seen and examined at bedside this morning. She was using the bathroom right before discharge yesterday when she kind of fell in the bathroom. She said she basically just slid down from the commode. She had an x-ray of her hip and a CT scan of her head. Overall she is feeling better. She has no new complaints.. Review of Systems All systems reviewed & are unremarkable except as noted in HPI & below. Physical Exam On physical examination of the right hip, she does not have much pain with range of motion. She has active dorsiflexion plantarflexion of her right ankle.. Results & Data Results & Data Laboratory Results . Diagnostic Findings X-rays of the right hip show a well-placed right total hip arthroplasty. There is a little bit of fracture lines in the very tip of the greater trochanter. CT scan of the head was negative. PG Care Time/CCT Total # of Minutes Spent Total Time Spent with Patient: Total time spent is greater than 50% in coordination of care (as documented) at patient's floor/unit and/or counseling patient: Coding Level of Care Code 05549 Post Operative Follow-Up Diagnoses Status post right hip replacement Z96.641
== END 2024-05-10 13:01 | disposition home or self-care (01) ==
LOC: ASU 05:23 → PACUINP 05:23 → 3E 12:29

== ENCOUNTER 2025-03-25 06:01 | Observation (INO) ==
--- NOTE | 2025-02-23 12:54 | PAT Medication Instructions ---
Medication Instructions Date of Service February 23, 2025 Home Medications Medication Instructions Recorded atorvastatin 40 mg tablet 40 mg PO QAM #30 tabs 10/03/23 ondansetron HCl 4 mg tablet 4 mg PO Q6H PRN nausea and 05/19/24 vomiting #20 tabs calcium 650 mg-vitamin D3 12.5 mcg-vitamin K 40 mcg chewable tablet (Viactiv) 1 tab PO BID levothyroxine 75 mcg tablet 75 mcg PO Q2D hydrocodone 10 mg-acetaminophen 325 mg tablet 1 tab PO Q4H PRN Pain levothyroxine 50 mcg tablet 50 mcg PO Q2D lorazepam 0.5 mg tablet 0.5 mg PO DAILY PRN Anxiety pantoprazole 40 mg tablet,delayed release 40 mg PO BID dicyclomine 10 mg capsule 10 mg PO QID PRN Abdominal Pain adalimumab 40 mg/0.8 mL subcutaneous syringe kit (Humira) 40 mg subcut Q7D mv-mn-folic 200 mcg-vit K 15 mcg-lutein 5 mg-zeaxanthin 1 mg capsule (PreserVision AREDS 2 Plus Multivit) 1 cap PO BID polyethylene glycol 3350 17 gram oral powder packet (Miralax) 17 g PO UD PRN Constipation fentanyl 25 mcg/hr transdermal patch 1 patch transdermal Q72H sucralfate 100 mg/mL oral suspension 5 ml PO DAILY PRN Abdominal Pain multivitamin-ferrous fumarate-folic acid 18 mg-400 mcg tablet (Centrum) 1 tab PO QAM duloxetine 60 mg capsule,delayed release 60 mg PO QAM famotidine 20 mg tablet 20 mg PO DAILY PRN Indigestion furosemide 20 mg tablet 20 mg PO QAM atorvastatin 40 mg tablet 40 mg PO QAM aspirin 81 mg chewable tablet (Children's Aspirin) 81 mg PO QAM collagen 1 dose PO QAM ondansetron HCl 4 mg tablet 4 mg PO Q6H PRN nausea and vomiting aripiprazole 5 mg tablet 5 mg PO HS Continue as directed fentanyl 25 mcg/hr transdermal patch 1 patch transdermal Q72H (avoid placement near surgery site prior to surgery) ASK your prescriber and surgeon adalimumab 40 mg/0.8 mL subcutaneous syringe kit (Humira) 40 mg subcut Q7D aspirin 81 mg chewable tablet (Children's Aspirin) 81 mg PO QAM STOP taking 2 weeks before surgery (or as soon as possible if surgery is within 2 weeks) calcium 650 mg-vitamin D3 12.5 mcg-vitamin K 40 mcg chewable tablet (Viactiv) 1 tab PO BID mv-mn-folic 200 mcg-vit K 15 mcg-lutein 5 mg-zeaxanthin 1 mg capsule (PreserVision AREDS 2 Plus Multivit) 1 cap PO BID collagen 1 dose PO QAM DO NOT take the morning of surgery dicyclomine 10 mg capsule 10 mg PO QID PRN Abdominal Pain polyethylene glycol 3350 17 gram oral powder packet (Miralax) 17 g PO UD PRN Constipation sucralfate 100 mg/mL oral suspension 5 ml PO DAILY PRN Abdominal Pain multivitamin-ferrous fumarate-folic acid 18 mg-400 mcg tablet (Centrum) 1 tab PO QAM furosemide 20 mg tablet 20 mg PO QAM Take morning of surgery With a small sip of water, OTHERWISE NOTHING TO EAT OR DRINK AFTER MIDNIGHT: hydrocodone 10 mg-acetaminophen 325 mg tablet 1 tab PO Q4H PRN Pain (if needed) lorazepam 0.5 mg tablet 0.5 mg PO DAILY PRN Anxiety (if needed) pantoprazole 40 mg tablet,delayed release 40 mg PO BID duloxetine 60 mg capsule,delayed release 60 mg PO QAM famotidine 20 mg tablet 20 mg PO DAILY PRN Indigestion (if needed) atorvastatin 40 mg tablet 40 mg PO QAM ondansetron HCl 4 mg tablet 4 mg PO Q6H PRN nausea and vomiting (if needed) levothyroxine Take evening before surgery hydrocodone 10 mg-acetaminophen 325 mg tablet 1 tab PO Q4H PRN Pain (if needed) lorazepam 0.5 mg tablet 0.5 mg PO DAILY PRN Anxiety /of pantoprazole 40 mg tablet,delayed release 40 mg PO BID dicyclomine 10 mg capsule 10 mg PO QID PRN Abdominal Pain (if needed) polyethylene glycol 3350 17 gram oral powder packet (Miralax) 17 g PO UD PRN Constipation (if needed) sucralfate 100 mg/mL oral suspension 5 ml PO DAILY PRN Abdominal Pain (if needed) famotidine 20 mg tablet 20 mg PO DAILY PRN Indigestion (if needed) ondansetron HCl 4 mg tablet 4 mg PO Q6H PRN nausea and vomiting (if needed) aripiprazole 5 mg tablet 5 mg PO HS Other Notes If you have any questions please call us at [phone] or [phone] or [phone] or [phone]
--- NOTE | 2025-03-02 12:08 | Anesthesiology Consultation ---
Date of Service March 02, 2025 Assessment & Plan (1) Encounter for pre-operative examination: - Infectious disease screening: Per assessment on 03/02/25- No known recent infectious disease contacts or current infectious disease symptoms. - Outpatient joint assessment: Pt currently scheduled for inpatient pathway. If surgeon requests review for outpatient joint pathway, patient is not recommended candidate for outpatient joint program from anesthesia standpoint based on available information. - Cardiology note (04/12/24): "I have reviewed the clinical history, medications and relevant noninvasive testing. Based on these findings, I would consider the patient to be a low risk from a cardiac standpoint. Stress test was normal. She's cleared at low cardiac risk for hip surgery.." - S/P Right anterior PHILLIP (05/07/24): SAB at L3-4 at [facility]. No issues noted per post-op anesthesia progress note. Chart Review Chart Review: Acceptable Risk for Surgery and Patient seen in Pre Admission Testing Teaching & Discussion Pre-Anesthesia Teaching/Discussion Notes: Instructed NPO after midnight before surgery,except medications with 15 cc of water. Medication instructions provided according to the PAT guidelines. History Surgery Operation Date: 03/25/25 08:00 Proposed Procedures p Left Anterior Total Hip Arthroplasty - Roberth Ortiz, DO Height/Weight Height: 4 ft 10 in Weight: 53.3 kg Allergies Allergy/AdvReac Type Severity Reaction Status Date / Time bee venom protein (honey bee) Allergy Severe Swelling Verified 03/02/25 11:22 Iodinated Contrast Media Allergy Intermediate Passed Verified 03/02/25 11:22 out, "cold" feeling venlafaxine Allergy Unknown Unknown Verified 03/02/25 11:22 atorvastatin AdvReac Intermediate Joint Pain Verified 03/02/25 11:22 gabapentin AdvReac Intermediate Severe Verified 03/02/25 11:22 headaches & worsens the pain oxycodone AdvReac Intermediate Hallucinati Verified 03/02/25 11:22 ons rosuvastatin [From Crestor] AdvReac Intermediate Joint Pain Verified 03/02/25 11:22 shellfish derived AdvReac Intermediate Headache Verified 03/02/25 11:22 Medications Home Medications Medication Instructions Recorded Confirmed Last Taken calcium 650 mg-vitamin D3 12.5 1 tab PO BID 03/05/19 03/02/25 05/06/24 19:30 mcg-vitamin K 40 mcg chewable tablet (Viactiv) levothyroxine 75 mcg tablet 75 mcg PO Q2D 11/02/20 03/02/25 05/06/24 08:00 hydrocodone 10 mg-acetaminophen 1 tab PO Q4H PRN Pain 01/30/21 03/02/25 05/07/24 04:00 325 mg tablet levothyroxine 50 mcg tablet 50 mcg PO Q2D 01/30/21 03/02/25 05/07/24 04:00 lorazepam 0.5 mg tablet 0.5 mg PO DAILY PRN Anxiety 01/30/21 03/02/25 05/07/24 04:00 pantoprazole 40 mg tablet,delayed 40 mg PO BID 01/30/21 03/02/25 05/07/24 04:00 release dicyclomine 10 mg capsule 10 mg PO QID PRN Abdominal Pain 04/11/22 03/02/25 05/06/24 17:00 adalimumab 40 mg/0.8 mL 40 mg subcut Q7D 04/12/22 03/02/25 05/01/24 subcutaneous syringe kit ([facility]) mv-mn-folic 200 mcg-vit K 15 1 cap PO BID 10/21/22 03/02/25 05/06/24 19:30 mcg-lutein 5 mg-zeaxanthin 1 mg capsule (PreserVision AREDS 2 Plus Multivit) polyethylene glycol 3350 17 gram 17 g PO UD PRN Constipation 10/21/22 03/02/25 05/06/24 08:00 oral powder packet (Miralax) fentanyl 25 mcg/hr transdermal 1 patch transdermal Q72H 05/14/23 03/02/25 05/04/24 patch sucralfate 100 mg/mL oral 5 ml PO DAILY PRN Abdominal Pain 05/14/23 03/02/25 06/18/23 suspension multivitamin-ferrous 1 tab PO QAM 06/11/23 03/02/25 05/06/24 08:00 fumarate-folic acid 18 mg-400 mcg tablet (Centrum) duloxetine 60 mg capsule,delayed 60 mg PO QAM 09/30/23 03/02/25 05/07/24 04:00 release famotidine 20 mg tablet 20 mg PO DAILY PRN Indigestion 09/30/23 03/02/25 05/06/24 19:30 furosemide 20 mg tablet 20 mg PO QAM 09/30/23 03/02/25 05/04/24 atorvastatin 40 mg tablet 40 mg PO QAM #30 tabs 10/03/23 03/02/25 05/06/24 08:00 aspirin 81 mg chewable tablet 81 mg PO QAM 03/31/24 03/02/25 05/07/24 04:00 (Children's Aspirin) collagen 1 dose PO QAM 03/31/24 03/02/25 04/30/24 ondansetron HCl 4 mg tablet 4 mg PO Q6H PRN nausea and 05/19/24 03/02/25 Unknown vomiting #20 tabs aripiprazole 5 mg tablet 5 mg PO HS 02/23/25 03/02/25 Unknown Past Medical History Medical History Age related osteoporosis Anemia PCP monitoring Anxiety Chronic abdominal pain Chronic nausea Chronic pain syndrome Follows with specialist (Dr. 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 Pancreatic insufficiency per medical record, pt unsure/unaware Paroxysmal atrial fibrillation Presence of Watchman left atrial appendage closure device Rheumatoid arthritis Rotator cuff tear arthropathy of right shoulder Decision to continue monitoring/non-surgical management per patient Scoliosis Stroke Possible CVA (09/30/23), [facility] admisison > stroke-like symptoms including speech slurring > received tPA, no acute head imaging findings, unremarkable echo, started on ASA/statin per neuro recommendations Urge incontinence of urine Exercise / Class Metabolic Activity III < 4 Walking/Shop/Light housework Past Family History Family History Sister Colorectal cancer Hypertension Mother Stroke Hypertension Other No pertinent family history Past Surgical History Surgical History History of appendectomy History of bilateral cataract extraction History of bladder suspension procedure History of cardiac cath 2018- no stents History of colonoscopy History of endoscopy + dilation History of eye surgery laser History of laparoscopic cholecystectomy History of lumbar fusion History of partial colectomy History of partial hysterectomy History of rectocele repair w/mesh (mesh since removed) History of repair of right rotator cuff History of right knee surgery bursa sac removed History of total left knee replacement Hx of heart surgery Watchman procedure, 11/2023 ([facility]) S/P insertion of spinal cord stimulator Subsequent removal S/P repair of paraesophageal hernia S/P total right hip arthroplasty Right anterior PHILLIP (05/07/24): SAB at L3-4 at [facility] Past Anesthesia History No Hx of Anesthesia Complications and No Family Hx of Anesthesia Complications History of PONV No Hx of PONV and No Hx of Motion Sickness Social History Smoking Status: Never smoker Do You Dip or Chew Tobacco: No Hx Alcohol Use: No Hx Substance Use: No substance use type: does not use Review of Systems Patient denies chest pain, fever, chills, cough, wheezing, palpitations. Chronic MENDEZ at baseline (shortness of breath with flight of stairs). Physical Exam Vital Signs BP 104/66 P 67 TEMP 99.2 SP02 93%RA RESP 18 Physical Full cervical extension range of motion. Full TMJ range of motion. TMD 3 finger breaths Mallampati Score II Dentition: partial upper/lower Lungs: clear throughout to auscultation Cardiac: regular rate and rhythm, no murmurs noted Spine: scoliosis Carotid arteries: negative bruit Extremities: Trace b/l LE pitting edema Lab Results Anesthesia Preop Results Results Anesthesia Widget: WBC 7.43 K/ul (4.8-10.8) 03/02/25 Hgb 10.8 g/dl (12.0-16.0) L 03/02/25 Hct 33.6 % (37.0-47.0) L 03/02/25 Plt 210 K/uL (130-400) 03/02/25 Na 140 mmol/L (136-145) 03/02/25 K 4.7 mmol/L (3.5-5.1) 03/02/25 Cl 105 mmol/L (98-107) 03/02/25 CO2 30 mmol/L (21-32) 03/02/25 BUN 29 mg/dl (6-23) H 03/02/25 Creat 1.01 mg/dl (0.6-1.2) 03/02/25 Glucose Level 87 mg/dl (70-99(Fasting)) 03/02/25 PT 10.4 Seconds (9.0-12.0) 03/02/25 PTT 23 Seconds (21-31) 03/02/25 INR 1.0 (0.9-1.1) 03/02/25 Blood Type A Positive 03/02/25 Antibody Screen NEGATIVE 03/02/25 Testing Electrocardiogram Date: 04/08/24 NSR at 69bpm. "Normal ECG" Chest X-Ray Date: 04/08/24 FINDINGS: PA and lateral chest radiographs are compared to chest x-ray and chest CT dated 09/30/2023. A 2-lead cardiac pacemaker is unchanged in position. A device is noted in the atrial appendage. The heart is enlarged noting atherosclerotic calcification of the thoracic aorta. The pulmonary vasculature is noncongested. Chronic interstitial thickening is similar to previous. There is bibasilar scarring/atelectasis. No airspace consolidation or large pleural effusion is identified. There is no pneumothorax. The skeletal structures are osteopenic. Compression deformities are noted in the lower thoracic region. A left shoulder arthroplasty is in place. Advanced arthritic change is seen in the right shoulder. Degenerative change and scoliosis is noted in the spine. Fusion hardware is partially visualized in the lumbar spine. IMPRESSION: Cardiomegaly and cardiac pacemaker without radiographic evidence of congestive failure. No airspace consolidation or pleural effusion is identified. Echocardiogram Date: 10/01/23 EF 65-70%. Mild cLVH. Moderate LAD. Mild MR/TR. Doppler findings do not suggest pulmonary HTN. LV wall motion normal. Stress Test Date: 04/12/24 Type: nuclear No significant ischemia/infarction. The SPECT perfusion images are considered to be within normal limits. LVEF 83%. Other Testing C-spine xray Date: 11/26/22 FINDINGS: Severe multilevel degenerative disc disease and facet arthrosis is noted. No acute cervical spine fracture is identified by radiography. The appearance of the cervical spine appear similar to CT of July 22, 2022. The chronic C5 and C6 fractures shown on that exam are not well depicted by radiography. There is prominence of the prevertebral soft tissues at the C4-C7 levels. IMPRESSION: 1. No acute cervical spine fracture identified by radiography. The chronic C5 and C6 fractures on CT of July 12, 2022 are not well depicted by radiography. 2. Severe multilevel degenerative changes within the cervical spine. 3. Prominence of the prevertebral soft tissues at the C4-C7 levels. This is nonspecific although may be technical. Carotid duplex Date: 04/22/24 B/L ICA stenosis < 50%. B/L vertebral artery demonstrates antegrade flow. Pacer check Date: 12/05/24 Zoodles. 10.4 years battery longevity. Mode AAIR <=> DDDR. RADIO PROGRAM CHECKER <0.1%. AP 2.4%.
[~2025-03-25 06:01] MED LIST changes: -ACET-1256 PO; -ALUMSUS21 PO; -ANT25 PO; -ARMO150T4 PO; -BIOT1TAB2 PO; -CALC8.5C PO; -CYAN500T13 PO; -CZR50 PO; -ESCI1TAB10 PO; -FNTTP50 TD; -HYDR-4383 PO; -LEVO75TA PO; -LORA0.5T12 PO; +LR 15ML/HR IV SCH; -MULT-513 PO; -PANT1TAB3 PO; -POLY335019 PO; -POTA10CA28 PO; -PRMVC PV; -RANI300T2 PO; -SUCR1TAB29 PO
[2025-03-25] MEDS ORDERED: BUPIVACAINE 0.5 % 5 MG/1 ML PF 10ML VIAL ONE (06:15)
--- NOTE | 2025-03-25 06:49 | History & Physical Bridge Note ---
Date of Service March 25, 2025 History & Physical Bridge Note I have examined the patient, reviewed the History & Physical and in the interval since the performance of the History & Physical I have noted the following changes of clinical significance: no changes noted
[2025-03-25] MEDS: LR 500ML BOLUS, THEN 15ML/HR IV SCH (06:56)
[2025-03-25] MEDS: GABAPENTIN 300 MG CAP PO SCH (06:57)
[2025-03-25] MEDS: LR 60ML/HR IV SCH (06:57)
[2025-03-25] MEDS: FAMOTIDINE 20 MG TAB PO SCH (06:57)
[2025-03-25] MEDS: ACETAMINOPHEN 500 MG TAB PO SCH ×2 (06:57→15:20)
[2025-03-25] MEDS ORDERED: LIDOCAINE 2% 2 ML VIAL/AMP(20MG/ML) INFIL ONE (07:01)
[2025-03-25] MEDS ORDERED: PROPOFOL IV EMULSION 10 MG/ML 20 ML VIAL IV ONE (07:01)
[2025-03-25] MEDS ORDERED: MIDAZOLAM HCL 1 MG/ML 2ML VIAL ONE (07:02)
[2025-03-25] MEDS: dexAMETHasone**PF** 10 MG/ML VIAL IV SCH (07:02)
[2025-03-25] MEDS ORDERED: PHENYLEPHRINE HCL 10 MG/ML VIAL ONE (07:17)
[2025-03-25] MEDS: ORTHO JOINT ANESTHETIC ONE (07:37)
[2025-03-25] MEDS ORDERED: ATROPINE SULFATE 0.1 MG/ML 10ML SYR IV PRN (07:38)
[2025-03-25] MEDS ORDERED: ONDANSETRON INJ 2 MG/ML 2 ML VIAL IV PRN (07:38)
[2025-03-25] MEDS: TRANEXAMIC ACID 1,000 MG **IV Pre-op IV SCH (08:03)
[2025-03-25] MEDS: ROPIV 0.5% 246mg, Ketorolac 30mg, EPINEPHrine 0.5mg in NSS INFIL SCH (09:36)
--- NOTE | 2025-03-25 10:05 | Fluoroscopy Report ---
FL hip LT 1V CLINICAL HISTORY: LT ANTERIOR PHILLIP COMPARISON STUDY: 05/09/2024 FLUOROSCOPY TIME: 22 seconds FLUOROSCOPY IMAGES: 4 EXPOSURE DOSE: 4.5 mGy FINDINGS: Fluoroscopy was provided for left hip prosthesis. IMPRESSION: Intraoperative fluoroscopy. ACT 112: Negative or not required by law. Electronically signed by: Spencer Leung M.D. 03/25/2025 10:03 AM
--- NOTE | 2025-03-25 10:35 | XRay Report ---
XR hip 1V LT w pelvis CLINICAL HISTORY: IN PACU - Post Surgical COMPARISON: 05/09/2024 FINDINGS: Bilateral hip prostheses show no hardware complication. There is expected soft tissue gas on the left. Stable calcifications adjacent to the ischium bilaterally and adjacent to the right acet abulum. IMPRESSION: Unremarkable postoperative exam. ACT 112: Negative or not required by law. Electronically signed by: Spencer Leung M.D. 03/25/2025 10:32 AM
[2025-03-25] MEDS ORDERED: SUCRALFATE 1 GM/10 ML UDC PO PRN (12:35)
[2025-03-25] MEDS ORDERED: NALOXONE HCL 0.4 MG/1 ML VIAL/CARP IV PRN (12:35)
[2025-03-25] MEDS ORDERED: METOCLOPRAMIDE HCL INJ 5 MG/ML 2 ML VIAL IV PRN (12:35)
[2025-03-25] MEDS ORDERED: diphenhydrAMINE Capsule 25 MG CAP PO PRN (12:35)
[2025-03-25] MEDS ORDERED: MAGNESIUM HYDROXIDE SUSP 30 ML UDC PO PRN (12:35)
[2025-03-25] MEDS: HYDROmorphone INJ 0.5 MG/0.5 ML SYR IV PRN (12:42)
--- NOTE | 2025-03-25 13:29 | Anesthesiology Progress Note ---
Date of Service March 25, 2025 Anesthesia Post Procedure Vital Signs Vital Signs: Temp Pulse Pulse Resp BP Pulse Ox O2 Del Method 03/25/25 12:45 60 18 135/71 94 Nasal Cannula 03/25/25 12:15 60 20 130/67 95 Nasal Cannula 03/25/25 12:00 60 18 126/65 94 Nasal Cannula 03/25/25 11:45 60 18 132/70 95 Nasal Cannula 03/25/25 11:30 60 22 136/69 95 Nasal Cannula 03/25/25 11:15 60 21 138/67 95 Nasal Cannula 03/25/25 11:00 60 22 114/65 95 Nasal Cannula 03/25/25 10:55 60 19 135/71 94 Nasal Cannula 03/25/25 10:45 36.4 C L 61 17 147/73 H 93 Oxymask 03/25/25 10:35 78 17 145/72 H 93 Oxymask 03/25/25 10:25 76 16 149/95 H 94 Oxymask 03/25/25 10:15 87 18 155/87 H 94 Oxymask 03/25/25 10:06 36.8 C 109 H 21 137/81 92 Oxymask 03/25/25 06:21 Room Air, Nasal Cannula 03/25/25 06:21 36.6 C 65 18 140/78 96 Room Air, Nasal Cannula O2 Flow Rate 03/25/25 12:45 2 03/25/25 12:15 2 03/25/25 12:00 2 03/25/25 11:45 2 03/25/25 11:30 2 03/25/25 11:15 2 03/25/25 11:00 2 03/25/25 10:55 2 03/25/25 10:45 4 03/25/25 10:35 4 03/25/25 10:25 8 03/25/25 10:15 8 03/25/25 10:06 8 03/25/25 06:21 03/25/25 06:21 Pain Intensity Right Lateral Abdomen: Pain Intensity: 8 Transfer of Care Handoff Completed per policy Notes Mental Status: alert / awake / arousable Patient Amnestic to Procedure: Yes Nausea / Vomiting: adequately controlled Pain: adequately controlled Airway Patency, RR, SpO2: stable & adequate BP & HR: stable & adequate Hydration State: stable & adequate Neuraxial Anesthesia: was administered and sensory block is resolving Anesthetic Complications: no major complications apparent and Pt Satisfied with anesthetic care
[2025-03-25] MEDS: HYDROmorphone INJ 0.5 MG/0.5 ML SYR ONE (13:54)
[2025-03-25] MEDS: SODIUM CHLORIDE 0.9% 1,000 ML IV SCH (13:54)
[2025-03-25] MEDS: KETOROLAC TROMETHAMINE 15 MG/ML VIAL IV SCH (15:21)
[2025-03-25] MEDS: LEVOTHYROXINE SODIUM 75 MCG TABLET PO ONE (17:14)
--- NOTE | 2025-03-25 17:28 | Operative Report ---
PG Post Operative Report Pre & Post Diagnosis Operation Date: 03/25/25 08:00 Pre-Op Diagnosis: Osteoarthritis of Left Hip Post-Op Diagnosis: Osteoarthritis of Left Hip I identified the patient and participated in the time-out.: Yes Procedure Operation Date: 03/25/25 08:00 Actual Procedures p Left Anterior Total Hip Arthroplasty(Left) - Roberth Ortiz DO Surgeon Roberth Ortiz DO Metaphysics Teacher Sammi Toure PA-C Estimated Blood Loss 300 Findings Consistent with Post-Op Diagnosis Specimens Left femoral head Description of Procedure Implants used I used a ZimmerBiomet total hip arthroplasty system with a size 6 high offset Z1 stem, a 50 mm Osseoti cup with 3 screws, an E1 polyethylene liner, a 36 mm ceramic head with a 0 neck. Romina arrived at the hospital for the above procedure. She was seen in the preoperative holding area and the operative extremity was identified and signed. She was given a spinal anesthetic, a preoperative antibiotic, and TXA. She was then taken back to the operating room and laid on the table in the supine position. She was given basic sedation. The operative leg was secured to a Puristst leg positioner. The hip was then prepped and draped in sterile fashion. A timeout was done and the patient and the operative extremity was properly identified. An anterior approach was used. Dissection was taken down through the fascia and the tensor muscle belly was retracted laterally and the rectus was retracted medially. The circumflex vessels were identified and ligated. The capsule was then incised and tagged for later repair. The femoral neck was then cut and the femoral head was removed. The acetabulum was exposed. Time was spent doing a complete circumferential labral release. Sequential reaming of the acetabulum up to a size 49 reamer was done. Final reamings were done under fluoroscopy to ensure appropriate version. Her bone quality was fairly weak and there is a small crack in the inferior acetabulum. A Biomet 50 mm Osseoti cup was then impacted into place. 3 peripheral screws were then placed. The acetabulum felt to be very stable. The E1 polyethylene liner was then snapped into place. Surrounding soft tissues were then injected with 100 cc of an orthopedic pain control cocktail. The proximal femur was then exposed. Sequential broaching up to a size 6 broach was done. Off that broach a size 36 head with a 0 neck was trialed. The hip was reduced and fluoroscopic images showed anatomic alignment of the implants in acceptable length. The broach was removed. The final size 6 high offset Z1 stem was then impacted into place. A ceramic 36 mm head with a 0 neck was then impacted onto the stem and the hip was reduced. Final fluoroscopic images showed anatomic alignment of the hip. The capsule was then closed with #1 Vicryl suture. A dilute betadyne lavage was then done for 3 minutes. The joint was then irrigated with normal saline solution. The fascia was closed with #1 PDS suture. Skin was closed with 2-0 Vicryl, Hartselle zip line, and a Silverlon dressing. She was then transferred to a hospital bed and taken to the post anesthesia care unit in stable condition. She tolerated the procedure well. Debo Toure PA-C, was present for the entire procedure. He was critical for patient positioning, prepping, draping, retraction exposure, wound closure and application of sterile dressing. I attest to the content of the Intraoperative Record and any orders documented therein. Any exceptions are noted below.
[2025-03-25] MEDS: ARIPiprazole 5 MG TAB PO SCH (20:35)
[2025-03-25] MEDS: ASPIRIN 81 MG ECTAB PO SCH (20:35)
[2025-03-25] MEDS: DICYCLOMINE HCL 10 MG CAP PO SCH (20:35)
[2025-03-25] MEDS: DOCUSATE SODIUM 100 MG CAP PO SCH (20:38)
[2025-03-25] MEDS: SENNA 8.6 MG TAB PO SCH (20:38)
[2025-03-26] MEDS: LEVOTHYROXINE SODIUM 50 MCG TABLET PO SCH (06:19)
[2025-03-26] MEDS: ONDANSETRON INJ 2 MG/ML 2 ML VIAL IV PRN (06:52)
--- NOTE | 2025-03-26 07:42 | Orthopedic Progress Note ---
Date of Service March 26, 2025 Assessment & Plan (1) Status post left hip replacement: Overall she is doing okay. She did have very poor bone quality during the surgery. Because she heard a crack when she was getting back into bed I do want to get an x-ray of her left hip. However, she has been ambulating to the bathroom since then. She has been unable to have a bowel movement. We will certainly keep her in the hospital today for medical management. I will review the x-ray. We will continue to give her some medications for bowel movement throughout the day today. She is currently on aspirin for DVT prophylaxis. Va Vanegas was seen and examined at bedside this morning. Overall she is doing okay. Her biggest complaint is unable to have a bowel movement. While getting into bed last night she did hear a crack in her hip. She did not have too much pain with it. She has been ambulating back and forth from the bathroom. She has no other complaints.. Review of Systems All systems reviewed & are unremarkable except as noted in HPI & below. Physical Exam On physical exam of the left hip, the leg lengths are equal. The dressing is clean and dry.. Results & Data Results & Data Laboratory Results . Diagnostic Findings Postoperative x-rays of the left hip show the prosthesis to be in good alignment.. PG Care Time/CCT Total # of Minutes Spent Total Time Spent with Patient: Total time spent is greater than 50% in coordination of care (as documented) at patient's floor/unit and/or counseling patient: Coding Level of Care Code 61003 Post Operative Follow-Up Diagnoses Status post left hip replacement Z96.642
[2025-03-26] MEDS: MULTIVITAMIN TAB PO SCH (08:01)
[2025-03-26] MEDS: ATORVASTATIN 40 MG TAB PO SCH (08:01)
[2025-03-26] MEDS: FUROSEMIDE 20 MG TAB PO SCH (08:01)
[2025-03-26] MEDS: POLYETHYLENE (MIRALAX) 17 GM PACK PO PRN (08:05)
--- NOTE | 2025-03-26 08:41 | XRay Report ---
LEFT HIP 2 VIEWS CLINICAL HISTORY: Postoperative left hip pain. FINDINGS: Portable AP and crosstable lateral views of the left hip are compared to x-rays dated 2024 and 05/09/2024 and correlated with pelvic CT dated 11/26/2022. The skeletal structures are osteope gbai. No acute fracture is seen involving the left hip or the visualized left hemipelvis. Chronic defo rmity on the left ilium is similar to previous. There are chronic/healed right pubic ring fractures. A right hip arthroplasty is partially imaged. Soft tissue edema and subcutaneous gas overlying left p roximal femur represents expected postsurgical change. IMPRESSION: 1. No acute bony abnormality is identified. 2. A left hip arthroplasty is in near anatomic alignment. 3. Additional findings as above. Electronically signed by: Alexi Avendano M.D. 03/26/2025 8:38 AM
[2025-03-27] MEDS: LEVOTHYROXINE SODIUM 75 MCG TABLET PO SCH (06:16)
--- NOTE | 2025-03-27 07:58 | Orthopedic Progress Note ---
Date of Service March 27, 2025 Assessment & Plan (1) Status post left hip replacement: Overall she is doing fairly well with her left hip, but she has not been able to have a bowel movement yet. She has been slow with physical therapy. She will be seen by physical therapy today for ambulation and range of motion exercises. The nursing staff will continue to work with medications to encourage a bowel movement. We will plan discharge to home tomorrow. She is on aspirin for DVT prophylaxis. Va Vanegas was seen and examined at bedside this morning. Overall she is doing okay with the hip. She has been up and ambulating to the bathroom. Unfor tunately, she has not had a bowel movement yet. She has been passing gas. She has no other complaints.. Review of Systems All systems reviewed & are unremarkable except as noted in HPI & below. Physical Exam On physical exam of the left hip, her leg lengths are equal. The dressing is mostly clean and dry. She is neurovascularly intact.. Results & Data Results & Data Laboratory Results . Diagnostic Findings Follow-up x-rays of the left hip show no evidence of fracture. The components are well aligned.. PG Care Time/CCT Total # of Minutes Spent Total Time Spent with Patient: Total time spent is greater than 50% in coordination of care (as documented) at patient's floor/unit and/or counseling patient: Coding Level of Care Code 01041 Post Operative Follow-Up Diagnoses Status post left hip replacement Z96.642
[2025-03-27] MEDS: POLYETHYLENE (MIRALAX) 17 GM PACK PO SCH (08:34)
[2025-03-27] MEDS: LORazepam 0.5 MG TAB PO PRN (21:16)
[2025-03-28] MEDS: FAMOTIDINE 20 MG TAB PO PRN (08:17)
--- NOTE | 2025-03-28 09:49 | Orthopedic Progress Note ---
Date of Service March 28, 2025 Assessment & Plan (1) Status post left hip replacement: * Continue Current Treatment * Disposition: home with home PT ?tomorrow. Need hospitalist consult due to abdomial pain * Daily treatment: Physical Therapy/ Occupational Therapy per protocol * Weight bearing status: as tolerated * Continue to monitor for ABLA * Pain control * DVT prophylaxis, ASA * Office/hospital f/u 2 weeks for progress check and staple/suture removal * Remainder care per primary team * Stable for discharge from ortho standpoint, further planning per primary team (2) Abdominal pain: Consult hospitalist for consult due to peristaltic sharp abdominal pain. H/o constipation. Chronic narcotic usage. Subjective .Active Problems: S/p left PHILLIP POD 3 84 y/o female s/p left total hip arthroplasty with Dr. Ortiz. Doing well overall, pain managed and improved function. Denies fever/chills, chest pain/SOB, nausea/vomiting. Pt states she is not ready to go home as she gets intermittent pain in her abdomen. Pt states yesterday she had a suppository and then had 5 episodes of loose stool. Pt states she no longer has full feeling like she is constipated but gets waves of sharp abdominal pain. Pt states she has a history of constipation and is on chronic hydrocodone. Pt states she also has a "pocket" when stool gets caught and has had bouts of this pain in the past but does not want to go home when she gets the waves of sharp severe pain. Review of Systems All systems reviewed & are unremarkable except as noted in HPI & below. Physical Exam * General: Alert and oriented, no acute distress * Constitutional: well-developed, well-nourished. * Respiratory: Normal respiratory effort, no distress * Gastrointestinal: No tenderness to palpation, no rigidity or guarding. * Skin: No rash or lesion. * Neurologic: Grossly normal * Musculoskeletal: Left hip surgical dressing clean, dry and in place, not removed for exam. Otherwise no obvious deformity or overlying skin changes. Diffuse TTP proximal thigh and hip region. Otherwise no specific tenderness of distal thigh, lower leg, foot/ankle. AROM hip flexion intact. Pt does need to assist left leg to do a straight leg raise. AROM foot/ankle intact. Sensation intact plantar/dorsal foot. Brisk capillary refill. . Results & Data Results & Data Laboratory Results . Diagnostic Findings . Hip/Pelvis X-Ray 03/25/25 10:11 XR hip 1V LT w pelvis CLINICAL HISTORY: IN PACU - Post Surgical COMPARISON: 05/09/2024 FINDINGS: Bilateral hip prostheses show no hardware complication. There is expected soft tissue gas on the left. Stable calcifications adjacent to the ischium bilaterally and adjacent to the right acetabulum. IMPRESSION: Unremarkable postoperative exam. ACT 112: Negative or not required by law. Electronically signed by: Spencer Leung M.D. 03/25/2025 10:32 AM Hip X-Ray 03/26/25 07:37 LEFT HIP 2 VIEWS CLINICAL HISTORY: Postoperative left hip pain. FINDINGS: Portable AP and crosstable lateral views of the left hip are compared to x-rays dated 03/25/2025 and 05/09/2024 and correlated with pelvic CT dated 11/26/2022. The skeletal structures are osteopenic. No acute fracture is seen involving the left hip or the visualized left hemipelvis. Chronic deformity on the left ilium is similar to previous. There are chronic/healed right pubic ring fractures. A right hip arthroplasty is partially imaged. Soft tissue edema and subcutaneous gas overlying left proximal femur represents expected postsurgical change. IMPRESSION: 1. No acute bony abnormality is identified. 2. A left hip arthroplasty is in near anatomic alignment. 3. Additional findings as above. Electronically signed by: Alexi Avendano M.D. 03/26/2025 8:38 AM PG Care Time/CCT Total # of Minutes Spent Total Time Spent with Patient: Total time spent is greater than 50% in coordination of care (as documented) at patient's floor/unit and/or counseling patient: Coding Level of Care Code 65122 Post Operative Follow-Up Diagnoses Status post left hip replacement Z96.642 Abdominal pain R10.30 Abdominal location: lower abdomen, unspecified (2) Abdominal pain Abdominal location: lower abdomen, unspecified Qualified Code(s): R10.30 - Lower abdominal pain, unspecified
--- NOTE | 2025-03-28 12:29 | Hospitalist Consultation ---
Date of Consultation March 28, 2025 Assessment & Plan (1) Abdominal pain: (2) Hypothyroidism: (3) Hypertension: (4) Rheumatoid arthritis: (5) Anemia: Plan 84-year-old female here status post left anterior hip on 03/25/2025 with abdominal pain. History of chronic constipation and previous colonic resection for ileocecal valve syndrome. She has medical problems including hypothyroidism hypertension diastolic heart failure atrial fibrillation with Watchman device pacemaker patient also takes Humira as an outpatient for rheumatoid arthritis #Abdominal pain. Certainly postop ileus or postop complication of the most likely causes. Will check a KUB and start Relistor therapy. If KUB does not show significant obstruction or other issues will increase cathartic bowel regiment. Will minimize opiate effects to improve pain as it will have neck effects on bowel transit time Bowel regimen has already been tried to have senna MiraLAX and she is also on as needed sucralfate for upper GI pain # acute blood loss anemia post op, transfuse one unit, recheck, likely from surgery, check iron in am #Coronary disease/hypertension/A-fib/diastolic heart failure currently stable with regard to heart failure and in sinus rhythm on preoperative EKG. 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 She is maintained on cardiac medications including atorvastatin aspirin (used for postop hip DVT prevention) currently on furosemide which may be held if lending worsening constipation #For rheumatoid arthritis Humira is on hold at this time History of Present Illness Attending Physician: Roberth Ortiz DO History of Present Illness 84-year-old female with a history of chronic opiate use who is status post left anterior total hip arthroplasty on 03/23/[address] Roberth Ortiz. Medical consult on 03/28/2025 for right-sided abdominal pain. Patient has a history of constipation, ileocecal valve syndrome and previous colonic resection and anastomosis. Did receive TNK for CVA symptoms in 2023, chronic diastolic heart failure, paroxysmal atrial fibrillation, permanent pacemaker, back, ARTHUR on CPAP. Patient had multiple visits for constipation and consulting along the years typically associate with abdominal pain Allergies Allergy/AdvReac Type Severity Reaction Status Date / Time bee venom protein (honey bee) Allergy Severe Swelling Verified 03/25/25 06:14 Iodinated Contrast Media Allergy Intermediate Passed Verified 03/25/25 06:14 out, "cold" feeling venlafaxine Allergy Unknown Unknown Verified 03/25/25 06:14 atorvastatin AdvReac Intermediate Joint Pain Verified 03/25/25 06:14 gabapentin AdvReac Intermediate Severe Verified 03/25/25 06:14 headaches & worsens the pain oxycodone AdvReac Intermediate Hallucinati Verified 03/25/25 06:14 ons rosuvastatin [From Crestor] AdvReac Intermediate Joint Pain Verified 03/25/25 06:14 shellfish derived AdvReac Intermediate Headache Verified 03/25/25 06:14 Home Medications Medication Instructions Recorded Confirmed Type calcium 650 mg-vitamin D3 12.5 1 tab PO BID 03/05/19 03/25/25 History mcg-vitamin K 40 mcg chewable tablet (Viactiv) levothyroxine 75 mcg tablet 75 mcg PO Q2D 11/02/20 03/25/25 History hydrocodone 10 mg-acetaminophen 1 tab PO Q4H PRN Pain 01/30/21 03/25/25 History 325 mg tablet levothyroxine 50 mcg tablet 50 mcg PO Q2D 01/30/21 03/25/25 History lorazepam 0.5 mg tablet 0.5 mg PO DAILY PRN Anxiety 01/30/21 03/25/25 History pantoprazole 40 mg tablet,delayed 40 mg PO BID 01/30/21 03/25/25 History release dicyclomine 10 mg capsule 10 mg PO BID Abdominal Pain 04/11/22 03/25/25 History adalimumab 40 mg/0.8 mL 40 mg subcut Q7D 04/12/22 03/25/25 History subcutaneous syringe kit (Humira) mv-mn-folic 200 mcg-vit K 15 1 cap PO BID 10/21/22 03/25/25 History mcg-lutein 5 mg-zeaxanthin 1 mg capsule (PreserVision AREDS 2 Plus Multivit) polyethylene glycol 3350 17 gram 17 g PO UD PRN Constipation 10/21/22 03/25/25 History oral powder packet (Miralax) fentanyl 25 mcg/hr transdermal 1 patch transdermal Q72H 05/14/23 03/25/25 History patch sucralfate 100 mg/mL oral 5 ml PO DAILY PRN Abdominal Pain 05/14/23 03/25/25 History suspension multivitamin-ferrous 1 tab PO QAM 06/11/23 03/25/25 History fumarate-folic acid 18 mg-400 mcg tablet (Centrum) duloxetine 60 mg capsule,delayed 60 mg PO QAM 09/30/23 03/25/25 History release famotidine 20 mg tablet 20 mg PO DAILY PRN Indigestion 09/30/23 03/25/25 History furosemide 20 mg tablet 20 mg PO QAM 09/30/23 03/25/25 History atorvastatin 40 mg tablet 40 mg PO QAM #30 tabs 10/03/23 03/25/25 Rx aspirin 81 mg chewable tablet 81 mg PO QAM 03/31/24 03/25/25 History (Children's Aspirin) collagen 1 dose PO QAM 03/31/24 03/25/25 History ondansetron HCl 4 mg tablet 4 mg PO Q6H PRN nausea and 05/19/24 03/25/25 Rx vomiting #20 tabs aripiprazole 5 mg tablet 5 mg PO HS 02/23/25 03/25/25 History aspirin 81 mg tablet,delayed 81 mg PO BID #84 tabs 03/25/25 Rx release (Adult Aspirin Regimen) cefadroxil 500 mg capsule 500 mg PO BID 10 days #20 caps 03/25/25 Rx Patient History Medical History Age related osteoporosis Anemia PCP monitoring Anxiety Chronic abdominal pain Chronic nausea Chronic pain syndrome Follows with specialist (Dr. Alfred Caballero/[place]) Depression Dyslipidemia Fatigue Chronic Fibromyalgia Generalized weakness GERD (gastroesophageal reflux disease) History of concussion Remote hx 2017, residual headaches History of COVID-19 10/2022, [facility] hospitalization > symptoms resolved except residual fatigue History of skin cancer BCC, s/p excision Hx of colonic polyps Hx of sleep apnea CPAP Hx pulmonary embolism s/p fall (early 2023) Hypertension Hypothyroidism JUDI (iron deficiency anemia) Lumbar spondylosis Nutcracker esophagus On home oxygen therapy 2 LPM PRN daytime + 4 LPM HS Osteoarthritis Pacemaker [employer], implanted 2020 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 Pancreatic insufficiency per medical record, pt unsure/unaware Paroxysmal atrial fibrillation Presence of Watchman left atrial appendage closure device Rheumatoid arthritis Rotator cuff tear arthropathy of right shoulder Decision to continue monitoring/non-surgical management per patient Scoliosis Stroke Possible CVA (09/30/23), [facility] admisison > stroke-like symptoms including speech slurring > received tPA, no acute head imaging findings, unremarkable echo, started on ASA/statin per neuro recommendations Urge incontinence of urine Surgical History History of appendectomy History of bilateral cataract extraction History of bladder suspension procedure History of cardiac cath 2018- no stents History of colonoscopy History of endoscopy + dilation History of eye surgery laser History of laparoscopic cholecystectomy History of lumbar fusion History of partial colectomy History of partial hysterectomy History of rectocele repair w/mesh (mesh since removed) History of repair of right rotator cuff History of right knee surgery bursa sac removed History of total left knee replacement Hx of heart surgery Watchman procedure, 11/2023 ([facility] [place]) S/P insertion of spinal cord stimulator Subsequent removal S/P repair of paraesophageal hernia S/P total right hip arthroplasty Right anterior PHILLIP (05/07/24): SAB at L3-4 at [facility] Family History Sister Colorectal cancer Hypertension Mother Stroke Hypertension Other No pertinent family history Social History Smoking Status: Never smoker Second Hand Exposure: No; Do You Dip or Chew Tobacco: No; Tobacco Cessation Education Requested by Patient: No Hx Alcohol Use: No Hx Substance Use: No Preferred Language: Vietnamese Communication Ability: Effective Visual Impairment: No Limitations Hearing Ability: Normal [employer] Required: No Beliefs That Will Affect Care: None marital status: Current Living Situation: Spouse Current Living Situation Comment: current occupational status: retired Other Information That Helps Us Care for You: No Feels Safe at Home: Yes Safety Concerns: Feels Safe At This Time Gender Identity: Female Assistive Devices: Cane, CPAP, Glasses, Oxygen - at Night and Walker Assistive Devices Comment: upper & lower partials, oxygen during the day PRN & 4lpm at HS Review of Systems Review of Systems: Cardiac sounds regular I hear no murmur Lungs are clear without wheezes or focal Aralast Abdomen is with hyperactive bowel sounds she is soft she is not distended there is no guarding she is tender to the right side epigastrium Extremities are with good distal pulses and capillary refill Results & Data Results & Data Vital Signs (Past 12 Hours) Vital Signs Temp Pulse Resp BP Pulse Ox O2 Del Method 03/28/25 07:30 97.7 F 86 17 116/68 95 Room Air Laboratory Results Ordering postoperative laboratories and KUB PG Care Time/CCT Total # of Minutes Spent Total Time Spent with Patient: Total time spent is greater than 50% in coordination of care (as documented) at patient's floor/unit and/or counseling patient: Coding Level of Care Code 59443 IN/OBS CONSULT LVL 4,60M Diagnoses Abdominal pain R10.30 Abdominal location: lower abdomen, unspecified Hypothyroidism E03.9 Hypertension I10 Rheumatoid arthritis M06.9 Anemia D64.9 (1) Abdominal pain Abdominal location: lower abdomen, unspecified Qualified Code(s): R10.30 - Lower abdominal pain, unspecified
--- NOTE | 2025-03-28 13:37 | XRay Report ---
KUB CLINICAL HISTORY: Constipation. Right-sided abdominal pain. FINDINGS: 2 AP supine abdominal radiographs are compared to study dated 10/01/2023 and correlated with abdominal CT dated 10/30/2022. Cholecystectomy clips are seen in the right upper quadrant. There is a nonobstructive abdominal bowel gas pattern. Mild fecal retention is seen throughout the colon. No ev idence of intraperitoneal free air is identified on these supine images. Suture material projects ove r the right lower quadrant. There are no abnormal abdominal calcifications. The skeletal structures a re osteopenic. There is advanced lumbosacral spondylosis and scoliosis. Postsurgical change is noted at the lumbosacral junction. Bilateral hip arthroplasties and a left shoulder arthroplasty are in mo ce. There are chronic/healed left-sided rib fractures. The heart is enlarged noting a cardiac pacemak er in place. IMPRESSION: No acute abnormality is identified. Electronically signed by: Alexi Avendano M.D. 03/28/2025 1:36 PM
[2025-03-28 13:41] LABS: Hematocrit (blood only) 18.7 % (37.0-47.0); Hemoglobin 6.1 g/dl (12.0-16.0); Mean Corpuscular Hemoglobin 31.1 pg (25.0-34.0); Mean Corpuscular Volume 95.4 fL (80.0-100.0); Platelet Count 140 K/uL (130-400); RDW Standard Deviation 51.4 fL (36.4-46.3); Red Blood Count 1.96 M/uL (4.20-5.40); White Blood Count 9.79 K/ul (4.8-10.8)
[2025-03-28 13:43] LABS: Alanine Aminotransferase 11.0 U/L (7-52); Albumin Globulin Ratio 1.1 (0.9-2); Alkaline Phosphatase 60.0 U/L (34-104); Anion Gap 5.0 (3-11); Bilirubin,Total 0.3 mg/dl (0.2-1.0); Blood Urea Nitrogen 27.0 mg/dl (6-23); Calcium 8.2 mg/dl (8.6-10.3); Carbon Dioxide 27.0 mmol/L (21-32); Chloride 109.0 mmol/L (98-107); Creatinine Clr Calc Pharmacy 26.9 ml/min; Globulin 2.6 gm/dl (2.5-4.0); Glucose 117.0 mg/dl (70-99(Fasting)); Potassium 4.1 mmol/L (3.5-5.1); Sodium 141.0 mmol/L (136-145); Total Protein 5.5 gm/dl (6.0-8.3)
[2025-03-28] MEDS ORDERED: SODIUM CHLORIDE 0.9% 100 ML IV PRN (13:46)
[2025-03-28] MEDS: METHYLNALTREXONE BROMIDE 12 MG/0.6 ML VIAL SQ SCH (14:00)
[2025-03-28 17:05] VITALS: O2SAT 96
[2025-03-29 07:07] LABS: Iron 35 mcg/dl (35-150)
[2025-03-29 07:22] VITALS: PULSE 77; RESP 16; TEMP 97.9
[2025-03-29 08:13] LABS: Hematocrit (blood only) 22.1 % (37.0-47.0); Hemoglobin 7.5 g/dl (12.0-16.0); Mean Corpuscular Hemoglobin 31.3 pg (25.0-34.0); Mean Corpuscular Volume 92.1 fL (80.0-100.0); Platelet Count 170 K/uL (130-400); RDW Standard Deviation 55.5 fL (36.4-46.3); Red Blood Count 2.40 M/uL (4.20-5.40); White Blood Count 9.08 K/ul (4.8-10.8)
--- NOTE | 2025-03-29 09:13 | Orthopedic Progress Note ---
Date of Service March 29, 2025 Assessment & Plan (1) Status post left hip replacement: * Continue Current Treatment * Disposition: home with home PT ?tomorrow. Need hospitalist consult due to abdomial pain * Daily treatment: Physical Therapy/ Occupational Therapy per protocol * Weight bearing status: as tolerated * Continue to monitor for ABLA * Pain control * DVT prophylaxis, ASA * Office/hospital f/u 2 weeks for progress check and staple/suture removal * Discharge planning pending bowel movement (2) Abdominal pain: * Pain improving so far today * Bowel movement "on deck" per patient * Appreciate hospital medicine team evaluation * Discharge planning to follow bowel movement Subjective Active Problems: S/p left PHILLIP POD 4 84 y/o female s/p left total hip arthroplasty with Dr. Ortiz. Doing well overall, pain managed and improved function. Denies fever/chills, chest pain/SOB, nausea/vomiting. Reports overall improvement of abdominal pain, but still present. Improving bowel function with medication, states she feels like a significant movement will occur soon. Appreciate hospital medicine team evaluation. Review of Systems All systems reviewed & are unremarkable except as noted in HPI & below. Physical Exam * General: Alert and oriented, no acute distress * Constitutional: well-developed, well-nourished. * Respiratory: Normal respiratory effort, no distress * Gastrointestinal: No tenderness to palpation, no rigidity or guarding. * Skin: No rash or lesion. * Neurologic: Grossly normal * Musculoskeletal: Left hip surgical dressing clean, dry and in place, not removed for exam. Otherwise no obvious deformity or overlying skin changes. Diffuse TTP proximal thigh and hip region. Otherwise no specific tenderness of distal thigh, lower leg, foot/ankle. AROM hip flexion intact. Pt does need to assist left leg to do a straight leg raise. AROM foot/ankle intact. Sensation intact plantar/dorsal foot. Brisk capillary refill. . Results & Data Results & Data Laboratory Results . Diagnostic Findings . KUB X-Ray 03/28/25 12:29 KUB CLINICAL HISTORY: Constipation. Right-sided abdominal pain. FINDINGS: 2 AP supine abdominal radiographs are compared to study dated 10/01/2023 and correlated with abdominal CT dated 10/30/2022. Cholecystectomy clips are seen in the right upper quadrant. There is a nonobstructive abdominal bowel gas pattern. Mild fecal retention is seen throughout the colon. No evidence of intraperitoneal free air is identified on these supine images. Suture material projects over the right lower quadrant. There are no abnormal abdominal calcifications. The skeletal structures are osteopenic. There is advanced lumbosacral spondylosis and scoliosis. Postsurgical change is noted at the lumbosacral junction. Bilateral hip arthroplasties and a left shoulder arthroplasty are in place. There are chronic/healed left-sided rib fractures. The heart is enlarged noting a cardiac pacemaker in place. IMPRESSION: No acute abnormality is identified. Electronically signed by: Alexi Avendano M.D. 03/28/2025 1:36 PM PG Care Time/CCT Total # of Minutes Spent Total Time Spent with Patient: Total time spent is greater than 50% in coordination of care (as documented) at patient's floor/unit and/or counseling patient: Coding Level of Care Code 59028 Post Operative Follow-Up Diagnoses Status post left hip replacement Z96.642 Abdominal pain R10.30 Abdominal location: lower abdomen, unspecified (2) Abdominal pain Abdominal location: lower abdomen, unspecified Qualified Code(s): R10.30 - Lower abdominal pain, unspecified
--- NOTE | 2025-03-29 09:52 | Communication Note ---
Date of Service: March 29, 2025 Please notify Orthopedics that pt is medically stable for discharge
--- NOTE | 2025-03-29 10:07 | Hospitalist Progress Note ---
Date of Service March 29, 2025 Assessment & Plan (1) Abdominal pain: (2) Hypothyroidism: (3) Hypertension: (4) Rheumatoid arthritis: (5) Anemia: Plan 84-year-old female here status post left anterior hip on 03/25/2025 with abdominal pain. History of chronic constipation and previous colonic resection for ileocecal valve syndrome. She has medical problems including hypothyroidism hypertension diastolic heart failure atrial fibrillation with Watchman device pacemaker patient also takes Humira as an outpatient for rheumatoid arthritis #Abdominal pain. resolved, encouraged to have good home bowel regimen # acute blood loss anemia post op, transfuse one unit, encouraged post dc vitamin use. Iron check is low normal #Coronary disease/hypertension/A-fib/diastolic heart failure currently stable with regard to heart failure and in sinus rhythm on preoperative EKG. 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 She is maintained on cardiac medications including atorvastatin aspirin (used for postop hip DVT prevention) currently on furosemide which may be held if lending worsening constipation #For rheumatoid arthritis Humira is on hold at this time Admission and Anticipated Discharge Date Admission Date: March 28, 2025 Subjective pt feels much better abdominal pain resolved after bowel movement acute blood loss anemia s/p 1 unit prbc with good augmentation Physical Exam Physical Exam: pleasant no distress some hip pain only to movement Results & Data Results & Data Vital Signs (Past 12 Hours) Vital Signs Temp Pulse Resp BP Pulse Ox O2 Del Method 03/29/25 07:22 97.9 F 77 16 146/74 H 96 Room Air 03/29/25 00:03 98.1 F 90 18 160/69 H 96 Room Air Laboratory Results reviewed cbc with appropriate augmentation after transfusion reviewed chemistry mild mireille expected to resolve with good oral hydration PG Care Time/CCT Total # of Minutes Spent Total Time Spent with Patient: Total time spent is greater than 50% in coordination of care (as documented) at patient's floor/unit and/or counseling patient: Coding Level of Care Code 56135 SUB INP/OBS CARE 2/35MIN Diagnoses Abdominal pain R10.30 Abdominal location: lower abdomen, unspecified Hypothyroidism E03.9 Hypertension I10 Rheumatoid arthritis M06.9 Anemia D64.9 (1) Abdominal pain Abdominal location: lower abdomen, unspecified Qualified Code(s): R10.30 - Lower abdominal pain, unspecified
--- NOTE | 2025-03-29 11:02 | Discharge Summary ---
Date of Service March 29, 2025 Admission HPI (Per Admitting) Patient presents to hospital 03/25/2025 for elective left total hip arthroplasty. See office H&P by Dr. Ortiz for further information. Principal Diagnosis Same as "Discharge Diagnosis" noted below under Discharge Instructions. Discharge Exam * General: Alert and oriented, no acute distress * Constitutional: well-developed, well-nourished. * Respiratory: Normal respiratory effort, no distress * Gastrointestinal: No tenderness to palpation, no rigidity or guarding. * Skin: No rash or lesion. * Neurologic: Grossly normal * Musculoskeletal: Left hip surgical dressing clean, dry and in place, not removed for exam. Otherwise no obvious deformity or overlying skin changes. Diffuse TTP proximal thigh and hip region. Otherwise no specific tenderness of distal thigh, lower leg, foot/ankle. AROM hip flexion intact. Pt does need to assist left leg to do a straight leg raise. AROM foot/ankle intact. Sensation intact plantar/dorsal foot. Brisk capillary refill. . Discharge Data Consultations 03/28/25 10:53 Consult Hospitalist Routine Procedures Performed Operation Date: 03/25/25 08:00 Actual Procedures p Left Anterior Total Hip Arthroplasty(Left) - Roberth Ortiz DO Ordered Studies 03/25/25 08:00 FL hip LT 1V Routine Hospital Course (1) Status post left hip replacement: Plan Patient presents to hospital 03/25 for elective left total hip arthroplasty. Patient underwent procedure without complication. Following surgery patient was admitted for pain control PT/OT evaluation. Patient with history of bowel surgery and chronic constipation, chronic narcotic use. Patient struggled to have bowel movement throughout the weekend and was less In the hospital for further medical management. Patient continued to work with PT/OT during this time and cleared for discharge to home with home PT services. Patient was overall cleared for discharge, however 03/28 patient with worsening abdominal pain secondary to limited bowel movements. Hospital medicine team was consulted and bowel regiment was continued. Abdominal x-ray without evidence of small bowel obstruction. Today patient with improved abdominal pain and is beginning to have multiple small bowel movements. Patient overall medically cleared for discharge home. Plan of care confirmed with case management including home PT services. Patient stable for discharge today, all questions answered. Patient will follow-up with surgical team as scheduled. PG Care Time/CCT Total # of Minutes Spent Total Time Spent with Patient: Total time spent is greater than 50% in coordination of care (as documented) at patient's floor/unit and/or counseling patient: Discharge Plan Discharge Items Patient Disposition: Home - Home Health Services Reason For Visit: Left Hip Arthritis Discharge Diagnosis: s/p left PHILLIP Activity: Per Instructions section Weightbearing: Full weightbearing Non-emergency contact: Surgeon Call non-emergency contact if: your symptoms worsen, your temperature is above 101.5, your wound has increased redness and your wound has increased drainage Follow-up/Referrals: Ernestina Swanson DO [Primary Care Provider] - Roberth Ortiz DO [Physician] - Diet: Regular Addtl Attending Provider Instructions: Activity and Therapy Recommendations: * If you are using [facility] then therapy will be provided at your home until they feel you have accomplished all of your goals. * If you are using [facility] then Physical Therapy will be provided until they feel you are ready to start Outpatient Physical Therapy. * If you are not using home therapy then Outpatient Physical Therapy should start about 3-5 days from your day of surgery. Therapy will last about 6-10 weeks * You were shown a series of exercises in the hospital. Do these exercises three times each day including the exercises you were shown in physical therapy. * Get up and walk several times each day.~ For the first four weeks, try not to stand or walk for more than one hour at a time. If you do stand or walk for more than one hour, you will not hurt anything, but your leg will likely swel l.~~ * As you feel comfortable, you may change from the walker or crutches to a cane and~then to independent walking. Medications: * Narcotic You will likely be sent home from the hospital with a prescription for the narcotic pain medication that worked best throughout your stay. * Cefadroxil -take the antibiotic twice a day for 10 days to help prevent infection. * Aspirin Most patients will be required to take Aspirin 81mg twice a day for 6 weeks after surgery. This is obtained [id number] and a prescription is not necessary. * Other medications may be prescribed for specific circumstances. If you have any questions, please call the office at . * Resume previous home medications unless otherwise instructed TEDs/Elastic Stockings: The white elastic stockings help limit swelling and prevent blood clots from forming in your legs. The more you wear them, the more they work. Wear them for 2 weeks. Dressing Care: Leave the Silverlon dressing in place for 7 days. After 7 days you may remove the dressing. Do not remove the Mark zip closure. If the incision is not draining then you may leave the Mark zip closure open to air. If there is a little bit of drainage or if the Mark zip closure is getting stuck on your clothing then cover the incision with a dry dressing. The Mark zip closure will be removed at your 2 week follow-up appointment. Showering: You may shower with the Silverlon dressing in place. Do not let the shower spray hit the dressing directly. Pat the Silverlon dressing dry. If the dressing becomes wet underneath, then simply remove the dressing. Keep the incision dry until you are 7 days out from the day of surgery. After 7 days you may remove the Silverlon dressing and shower with the [place] zip closure exposed. Let soapy water run over the Mark zip closure and pat them dry. Do not scrub or soak the incision. Diet: You may resume your previous diet. Things To Watch For: * Drainage from the incision site that occurs more than one week after your surgery. * Increased redness at the incision site. * Fever above 102 degrees Fahrenheit. * Unusual chest pain or shortness of breath. * Call [facility] at with any of the above problems Follow-Up Visit: Follow-up with Dr. Ortiz's office 2-3 weeks after your day of surgery. We will remove your jami and answer any questions. If you have any additional questions or concerns, Dr Ortiz is usually in the office at the same time and will be available An appointment was probably scheduled when you signed-up for surgery in the office. If you have any questions call Office Instructions: More detailed instructions as well as Frequently Asked Questions were provided in a folder by our office when you signed-up for surgery. Please review these instructions when you get home. If you have any further questions or concerns, please feel free to call the office at [phone] Addtl [employer] Provider Instructions: your blood count was low after surgery, please be sure to keep up your vitamins and have foods that have iron B12 and folic acid, these typically are red meats and dark green vegetables please work to keep your bowels moving regularly, daily miralax or generic is one good way encourage good hydration for the next few days at home, holding your lasix during that time as have mild dehydration seen on labs in the hospital Pending Studies at Discharge: No Stand-Alone Forms: My [facility] Easy Food, Smoking Cessation Medications and DC Order Prescriptions: New aspirin [Adult Aspirin Regimen] 81 mg tablet,delayed release (DR/EC) 81 mg PO BID Qty: 84 0RF cefadroxil 500 mg capsule 500 mg PO BID 10 Days Qty: 20 0RF Continued sucralfate 100 mg/mL suspension 5 ml PO DAILY PRN (Reason: Abdominal Pain) ondansetron HCl 4 mg tablet 4 mg PO Q6H PRN (Reason: nausea and vomiting) Qty: 20 0RF calcium-vitamin D3-vitamin K [Viactiv] 650 mg-12.5 mcg-40 mcg Tablet,Chewable 1 tab PO BID lorazepam 0.5 mg Tablet 0.5 mg PO DAILY PRN (Reason: Anxiety) pantoprazole 40 mg Tablet,Delayed Release (Dr/Ec) 40 mg PO BID levothyroxine 50 mcg Tablet 50 mcg PO Q2D Rx Instructions: ALTERNATE WITH 75MCG PreserVision AREDS 2 Plus MV 200 mcg-15 mcg- 5 mg-1 mg Capsule 1 cap PO BID polyethylene glycol 3350 [Miralax] 17 gram powder in packet 17 g PO UD PRN (Reason: Constipation) Centrum 18-400 mg-mcg Tablet 1 tab PO QAM levothyroxine 75 mcg Tablet 75 mcg PO Q2D Rx Instructions: ALTERNATE WITH 50MCG dicyclomine 10 mg capsule 10 mg PO BID Humira 40 mg/0.8 mL Syringe Kit 40 mg SUBCUT Q7D Rx Instructions: SATURDAYS. fentanyl 25 mcg/hr patch 72 hour 1 patch transdermal Q72H aripiprazole 5 mg Tablet 5 mg PO HS famotidine 20 mg tablet 20 mg PO DAILY PRN (Reason: Indigestion) duloxetine 60 mg capsule,delayed release(DR/EC) 60 mg PO QAM atorvastatin 40 mg Tablet 40 mg PO QAM Qty: 30 0RF collagen 1 dose PO QAM Rx Instructions: liquid collagen aspirin [Children's Aspirin] 81 mg tablet,chewable 81 mg PO QAM Held furosemide 20 mg tablet 20 mg PO QAM Hold Instructions: Resume on 04/01/25. No Action tramadol 50 mg tablet 50 mg PO Q6H PRN (Reason: pain) Qty: 30 0RF Discharge Orders: Discharge Order (Routine); Ordered 03/29/25 Ordered By: Sunil Perez Admission Data Admit Date/Time: 03/28/25 10:57 Attending Provider: Roberth Ortiz Admit Provider: Roberth Ortiz Primary Care Provider: Ernestina Swanson Other Providers: Alejandro Holden Other Interventions: Discharge Summary Assessment (RN) Last Done: 03/29/25 11:47
[2025-03-29 11:51] VITALS: BP 104/62
== END 2025-03-29 16:07 | disposition home health service (06) | DRG 470 ==
LOC: PACUINP 06:01 → ASU 06:01 → 3E 13:43

== ENCOUNTER 2025-04-15 11:55 | Inpatient (IN) ==
[~2025-04-15 11:55] MED LIST changes: +ACETAMINOPHEN 325 MG TAB PO ONE; -LR 15ML/HR IV SCH
--- NOTE | 2025-04-15 12:28 | Emergency Department Note ---
Impression & Plan Acute pain of left hip, History of left hip replacement ED Provider Note ED Provider Note NAME: INO ANDERSON AGE:84 SEX: Female : 1940 ARRIVES VIA: EMS INFORMANT: Patient ED PROVIDER(s): Shanice Guan DO CHIEF COMPLAINT: left hip pain HPI: This is an 84-year-old female brought in by EMS due to concern for increased pain of the left hip. Patient states she underwent left hip replacement by Dr. Ortiz on March 25. She states she did have a follow-up appointment with his PA. Patient states she has been only walking on ground- level at home up until yesterday when she attempted to go down steps. She states she first planted with her right foot and then when she planted with her left she had a sharper increased pain in the left hip. She states she did not fall as she was holding onto the railing and her was holding onto her. She states she sat down and scooted the rest of the way down the steps on her buttocks. She states the pain from the left hip does radiate into her back and radiate down the leg. She denies any paresthesias. She denies any leg swelling. She states she has been using Tylenol and hydrocodone at home for pain but feels pain is not improving. She denies fevers, chills, abdominal pain. She states she has not had any discharge or drainage from the incision. PAST MEDICAL HISTORY:See Below PAST SURGICAL HISTORY:See Below FAMILY HISTORY:See Below SOCIAL HISTORY:See Below HOME MEDICATIONS:See Below ALLERGIES:See Below VITALS:See Below PHYSICAL EXAMINATION: GENERAL: alert, well appearing, well nourished, no distress, non-toxic EYE EXAM: normal conjunctiva, PERRL and EOM's grossly intact OROPHARYNX: no exudate, no erythema, lips, buccal mucosa, and tongue normal and mucous membranes are moist NECK: supple, no nuchal rigidity, no adenopathy, non-tender LUNGS: Clear to auscultation. Normal chest wall mechanics, no w/r/r HEART: no murmurs, S1 normal and S2 normal ABDOMEN: abdomen soft, non-tender, normo-active bowel sounds, no masses, no rebound or guarding. BACK: Back is symmetrical on inspection and there is no deformity, no midline tenderness, no CVA tenderness. SKIN: no rashes, petechiae, orbruising UPPER EXTREMITIES: upper extremities are grossly normal. FROM, nml pulses b/l. LOWER EXTREMITIES: No pitting edema. FROM, nml pulses b/l. Well appearing vertical anterior incision over the left hip, no dehiscence or drainage, no surrounding erythema; increased pain with palpation along the left lateral hip, decreased range of motion secondary to pain. No other evidence of trauma or deformity, no shortening, no external rotation, no joint effusions, compartments soft. NEURO EXAM: Normal sensorium, cranial nerves II-XII grossly intact, normal speech, no facial droop,nogross weakness of arms, no gross weakness of legs. Gross sensation intact. No ataxia. Vital Signs: reviewed and remarkable Differential Diagnosis: Fracture, subluxation, dislocation, contusion, ligamentous injury, neurovascular, compartment syndrome, rhabdomyolysis, as well as other pathologies. MEDICAL DECISION MAKING: This is an 84-year-old female who presents to the emergency department due to concern for increased pain of the left hip after she attempted to go down steps yesterday. Patient is 3 weeks postop from a left hip replacement by Dr. Ortiz. Patient denied any trauma or injury. She was taking her hydrocodone and Tylenol at home without any significant improvement. She had no lower extremity edema and denied any paresthesias. X-rays performed at bedside and interpreted by me were reassuring. Patient given oral Tylenol, oral Robaxin, and oral ibuprofen with improvement. After discussion with family at bedside and evaluation by Dr. Ortiz at bedside, family feels patient would benefit from inpatient rehab. I did involve the case management team who spoke with them and contacted rehab. Initially plans made for patient to be transferred there tonight however upon rehab facility double checking patient's insurance, we were contacted and told she would need admitted for PT/OT consultation and further evaluation prior to being able to be transferred to inpatient rehab. Patient and family updated and verbalized understanding. Case discussed with the hospitalist team for additional evaluation and management. As a precaution, labs drawn and sent and IV established. Consultation(s): 1505: Patient seen at bedside by Dr. Ortiz. Case discussed with him. 1609: Eda, case management, spoke with patient and family about options for inpatient rehab. She did contact [facility] who did have availability and family is willing to transport with her tonight. 1724: Discussed with Dr. Peralta, [place] hospitalist team, for additional evaluation and mgmt. ER Treatment Provided: See below Diagnostics Interpreted By Me: -Cardiac Monitoring: An order was placed for continuous cardiac monitoring. The monitor shows a rate of 77 with normal sinus rhythm. -Laboratory studies: As stated above and show below. -Imaging studies: xr left hip/pelvis: Hardware intact, no fracture or dislocation Triage Nursing Note Reviewed Prior/Outside Records Reviewed Past Med/Surg History Problem List (Updated 04/15/25 @ 18:08 by Shan Peralta DO) Ambulatory dysfunction History of left hip replacement (Acute) Acute pain of left hip (Acute) Status post left hip replacement (~03/2025) Osteoarthritis of left hip STEPHANIE (generalized anxiety disorder) Major depressive disorder, recurrent, severe without psychotic features Greater trochanteric bursitis of both hips Lumbar spondylosis Basal cell carcinoma Depression HTN (hypertension) PAF (paroxysmal atrial fibrillation) Tendonitis of shoulder, left Trochanteric bursitis of left hip ARTHUR (obstructive sleep apnea) GERD (gastroesophageal reflux disease) Rheumatoid arthritis Hypothyroidism Medical History Age related osteoporosis Anemia PCP monitoring Anxiety Chronic abdominal pain Chronic nausea Chronic pain syndrome Follows with specialist (Dr. 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 Pancreatic insufficiency per medical record, pt unsure/unaware Paroxysmal atrial fibrillation Presence of Watchman left atrial appendage closure device Rheumatoid arthritis Rotator cuff tear arthropathy of right shoulder Decision to continue monitoring/non-surgical management per patient Scoliosis Stroke Possible CVA (09/30/23), [facility] admisison > stroke-like symptoms including speech slurring > received tPA, no acute head imaging findings, unremarkable echo, started on ASA/statin per neuro recommendations Urge incontinence of urine Surgical History History of appendectomy History of bilateral cataract extraction History of bladder suspension procedure History of cardiac cath 2018- no stents History of colonoscopy History of endoscopy + dilation History of eye surgery laser History of laparoscopic cholecystectomy History of lumbar fusion History of partial colectomy History of partial hysterectomy History of rectocele repair w/mesh (mesh since removed) History of repair of right rotator cuff History of right knee surgery bursa sac removed History of total left knee replacement Hx of heart surgery Watchman procedure, 11/2023 ([facility]) S/P insertion of spinal cord stimulator Subsequent removal S/P repair of paraesophageal hernia S/P total right hip arthroplasty Right anterior PHILLIP (05/07/24): SAB at L3-4 at [facility] Family History Sister Colorectal cancer Hypertension Mother Stroke Hypertension Other No pertinent family history Social History Smoking Status: Never smoker Second Hand Exposure: No; Do You Dip or Chew Tobacco: No; Hx Alcohol Use: No Hx Substance Use: No Preferred Language: Serbian Communication Ability: Effective Visual Impairment: No Limitations Hearing Ability: Normal Supervisor Insulation Required: No Beliefs That Will Affect Care: None marital status: Current Living Situation: Spouse Current Living Situation Comment: current occupational status: retired Feels Safe at Home: Yes Gender Identity: Female Assistive Devices: Cane, CPAP, Glasses, Oxygen - at Night and Walker Allergies Allergies Allergy/AdvReac Type Severity Reaction Status Date / Time bee venom protein (honey bee) Allergy Severe Swelling Verified 03/25/25 06:14 Iodinated Contrast Media Allergy Intermediate Passed Verified 03/25/25 06:14 out, "cold" feeling venlafaxine Allergy Unknown Unknown Verified 03/25/25 06:14 atorvastatin AdvReac Intermediate Joint Pain Verified 03/25/25 06:14 gabapentin AdvReac Intermediate Severe Verified 03/25/25 06:14 headaches & worsens the pain oxycodone AdvReac Intermediate Hallucinati Verified 03/25/25 06:14 ons rosuvastatin [From Crestor] AdvReac Intermediate Joint Pain Verified 03/25/25 06:14 shellfish derived AdvReac Intermediate Headache Verified 03/25/25 06:14 Home Meds Home Medications Medication Instructions Recorded Confirmed calcium 650 mg-vitamin D3 12.5 1 tab PO BID 03/05/19 04/15/25 mcg-vitamin K 40 mcg chewable tablet (Viactiv) levothyroxine 75 mcg tablet 75 mcg PO Q2D 11/02/20 04/15/25 levothyroxine 50 mcg tablet 50 mcg PO Q2D 01/30/21 04/15/25 lorazepam 0.5 mg tablet 0.5 mg PO DAILY PRN Anxiety 01/30/21 04/15/25 pantoprazole 40 mg tablet,delayed 40 mg PO BID 01/30/21 04/15/25 release dicyclomine 10 mg capsule 10 mg PO BID Abdominal Pain 04/11/22 04/15/25 adalimumab 40 mg/0.8 mL 40 mg subcut Q7D 04/12/22 04/15/25 subcutaneous syringe kit (Compositence) mv-mn-folic 200 mcg-vit K 15 1 cap PO BID 10/21/22 04/15/25 mcg-lutein 5 mg-zeaxanthin 1 mg capsule (PreserVision AREDS 2 Plus Multivit) polyethylene glycol 3350 17 gram 17 g PO UD PRN Constipation 10/21/22 04/15/25 oral powder packet (Miralax) fentanyl 25 mcg/hr transdermal 1 patch transdermal Q72H 05/14/23 04/15/25 patch sucralfate 100 mg/mL oral 5 ml PO DAILY PRN Abdominal Pain 05/14/23 04/15/25 suspension multivitamin-ferrous 1 tab PO QAM 06/11/23 04/15/25 fumarate-folic acid 18 mg-400 mcg tablet (Centrum) duloxetine 60 mg capsule,delayed 60 mg PO QAM 09/30/23 04/15/25 release famotidine 20 mg tablet 20 mg PO DAILY PRN Indigestion 09/30/23 04/15/25 furosemide 20 mg tablet 20 mg PO QAM 09/30/23 04/15/25 aspirin 81 mg chewable tablet 81 mg PO QAM 03/31/24 04/15/25 (Children's Aspirin) collagen 1 dose PO QAM 03/31/24 04/15/25 aripiprazole 5 mg tablet 5 mg PO HS 02/23/25 04/15/25 Previous Rx's Medication Instructions Recorded atorvastatin 40 mg tablet 40 mg PO QAM #30 tabs 10/03/23 ondansetron HCl 4 mg tablet 4 mg PO Q6H PRN nausea and 05/19/24 vomiting #20 tabs aspirin 81 mg tablet,delayed 81 mg PO BID #84 tabs 03/25/25 release (Adult Aspirin Regimen) tramadol 50 mg tablet 50 mg PO Q6H PRN pain #30 tabs 03/30/25 Results & Data (ED) Vital Signs Vital Signs - 24 hr 04/15/25 11:44 04/15/25 14:05 04/15/25 15:32 Temperature 36.9 C Temperature Source Oral Pulse Rate 75 Pulse Rate [Finger] 78 76 Respiratory Rate 16 20 18 Respiratory Effort / Characteristics Non-Labored Spontaneous Respiratory Depth Normal Respiratory Pattern Regular Blood Pressure 151/80 H Blood Pressure [Right Arm] 131/72 145/83 H Blood Pressure Mean 103 Blood Pressure Mean [Right Arm] 91 103 Blood Pressure Position Sitting Blood Pressure Position [Right Arm] Sitting Semi-fowlers Pulse Oximetry 96 100 Oxygen Delivery Method Room Air Room Air Oxygen Flow Rate Sepsis Recent Fever Within 48 Hours No Sepsis New/Unexplained Change in Mental Status No Sepsis Action Taken by Nursing No Action Required 04/15/25 17:24 04/15/25 18:14 Temperature Temperature Source Pulse Rate 71 Pulse Rate [Finger] 69 Respiratory Rate 18 Respiratory Effort / Characteristics Non-Labored Spontaneous Respiratory Depth Normal Respiratory Pattern Regular Blood Pressure Blood Pressure [Right Arm] 139/75 Blood Pressure Mean Blood Pressure Mean [Right Arm] 96 Blood Pressure Position Blood Pressure Position [Right Arm] Semi-fowlers Pulse Oximetry 100 Oxygen Delivery Method Nasal Cannula Oxygen Flow Rate 2 Sepsis Recent Fever Within 48 Hours Sepsis New/Unexplained Change in Mental Status Sepsis Action Taken by Nursing Laboratory Data 04/15/25 17:38 04/15/25 17:38 Lab Results 04/15/25 Range/Units 17:38 WBC Cancelled RBC Cancelled Hgb Cancelled Hct Cancelled MCV Cancelled MCH Cancelled MCHC Cancelled RDW Std Deviation Cancelled RDW Coeff of Kim Cancelled Plt Count Cancelled MPV Cancelled Immature Gran % (Auto) Cancelled Neut % (Auto) Cancelled Lymph % (Auto) Cancelled [place] % (Auto) Cancelled Eos % (Auto) Cancelled Baso % (Auto) Cancelled Neut # (Auto) Cancelled Lymph # (Auto) Cancelled [place] # (Auto) Cancelled Eos # (Auto) Cancelled Baso # (Auto) Cancelled Immature Gran # (Auto) Cancelled Absolute Nucleated RBC Cancelled Nucleated RBC % (auto) Cancelled Neutrophils % (Manual) Cancelled Band Neutrophils % Cancelled Lymphocytes % (Manual) Cancelled Prolymphocyte % Cancelled Reactive Lymphs % (Man) Cancelled Monocytes % (Manual) Cancelled Eosinophils % (Manual) Cancelled Basophils % (Manual) Cancelled Metamyelocytes % (Man) Cancelled Myelocytes % (Man) Cancelled Promyelocytes % (Man) Cancelled Blast Cells % (Manual) Cancelled Plasma Cell % (Manual) Cancelled Other Cells % Cancelled Nucleated RBC % Cancelled Neutrophils # (Manual) Cancelled Band Neutrophils # Cancelled Total Absolute Neuts Cancelled Lymphocytes # (Manual) Cancelled Prolymphocyte # Cancelled Reactive Lymphs # Cancelled Total Abs Lymphocytes Cancelled Monocytes # (Manual) Cancelled Eosinophils # (Manual) Cancelled Basophils # (Manual) Cancelled Metamyelocytes # (Man) Cancelled Myelocytes # (Manual) Cancelled Promyelocytes # (Man) Cancelled Blast Cells # (Man) Cancelled Plasma Cell # (Manual) Cancelled Other Cells # Cancelled Nucleated RBCs # (Man) Cancelled Hypersegmented Neuts Cancelled Hyposegmented Neuts Cancelled Hypogranular Neuts Cancelled Large Granular Lymphs Cancelled # Lrg Granular Lymphs Cancelled Hairy Cells Cancelled Smudge Cells Cancelled Toxic Granulation Cancelled Toxic Vacuolation Cancelled Dohle Bodies Cancelled Orlando Rods Cancelled Platelet Estimate Cancelled Hypogranular Platelets Cancelled Giant Platelets Cancelled Platelet Satelliting Cancelled RBC Morphology Cancelled Polychromasia Cancelled Hypochromasia Cancelled Poikilocytosis Cancelled Basophilic Stippling Cancelled Anisocytosis Cancelled Microcytosis Cancelled Macrocytosis Cancelled Spherocytes Cancelled Pappenheimer Bodies Cancelled Sickle Cells Cancelled Target Cells Cancelled Tear Drop Cells Cancelled Ovalocytes Cancelled Stomatocytes Cancelled Gamino-[place] Bodies Cancelled Echinocytes Cancelled Acanthocytes (Spur) Cancelled Rouleaux Cancelled RBC Agglutinates Cancelled Schistocytes Cancelled Sezary Cell Cancelled Sodium TNP Potassium TNP Chloride 106 (98-107) mmol/L Carbon Dioxide 27 (21-32) mmol/L Anion Gap TNP BUN 25 H (6-23) mg/dl Creatinine 0.97 (0.6-1.2) mg/dl Est Cr Clr Drug Dosing 34.9 ml/min eGFR 58.34 BUN/Creatinine Ratio 25.8 H (10-20) Glucose 115 H (70-99(Fasting)) mg/dl Calcium 9.2 (8.6-10.3) mg/dl Magnesium TNP Total Bilirubin 0.5 (0.2-1.0) mg/dl AST TNP ALT 18 (7-52) U/L Alkaline Phosphatase 171 H (34-104) U/L Total Protein 7.1 (6.0-8.3) gm/dl Albumin 3.6 (3.4-5.0) gm/dl Globulin 3.5 (2.5-4.0) gm/dl Albumin/Globulin Ratio 1.0 (0.9-2) Blood Parasites ID Cancelled Administered Medications Discontinued Medications Acetaminophen (Acetaminophen 325 Mg Tab) 650 mg PO NOW STA Stop: 04/15/25 13:16 Last Admin: 04/15/25 13:23 Dose: 650 mg Documented By: QGV Ibuprofen (Ibuprofen 200 Mg Tab) 400 mg PO NOW STA Stop: 04/15/25 15:40 Last Admin: 04/15/25 17:22 Dose: 400 mg Documented By: JUAN C Methocarbamol (Methocarbamol 500 Mg Tablet) 500 mg PO NOW STA Stop: 04/15/25 13:17 Last Admin: 04/15/25 13:40 Dose: 500 mg Documented By: QGV Imaging Data Radiologist's Impression: Hip/Pelvis X-Ray 04/15/25 12:12 XR hip LT 2V w pelvis CLINICAL HISTORY: pain, recent surgery COMPARISON: 03/26/2025 FINDINGS: Bilateral hip prostheses show no hardware complication. Stable calcifications adjacent to the greater trochanters bilaterally. No acute fracture or dislocation seen. IMPRESSION: No acute fracture seen. ACT 112: Negative or not required by law. Electronically signed by: Spencer Leung M.D. 04/15/2025 12:35 PM Discharge Plan Visit Data Chief Complaint: Hip Pain ED Provider: Shanice Guan Discharge Problem: Acute pain of left hip, History of left hip replacement Patient Disposition: Being Evaluated by Hospitalist Condition: Fair Forms Stand Alone Forms: [facility] Prescriptions Prescriptions: No Action sucralfate 100 mg/mL suspension 5 ml PO DAILY PRN (Reason: Abdominal Pain) tramadol 50 mg tablet 50 mg PO Q6H PRN (Reason: pain) Qty: 30 0RF ondansetron HCl 4 mg tablet 4 mg PO Q6H PRN (Reason: nausea and vomiting) Qty: 20 0RF calcium-vitamin D3-vitamin K [Viactiv] 650 mg-12.5 mcg-40 mcg Tablet,Chewable 1 tab PO BID Patient Comments: 04/15- otc unable to verify lorazepam 0.5 mg Tablet 0.5 mg PO DAILY PRN (Reason: Anxiety) pantoprazole 40 mg Tablet,Delayed Release (Dr/Ec) 40 mg PO BID levothyroxine 50 mcg Tablet 50 mcg PO Q2D Rx Instructions: ALTERNATE WITH 75MCG PreserVision AREDS 2 Plus MV 200 mcg-15 mcg- 5 mg-1 mg Capsule 1 cap PO BID Patient Comments: 04/15- otc unable to verify polyethylene glycol 3350 [Miralax] 17 gram powder in packet 17 g PO UD PRN (Reason: Constipation) Patient Comments: 04/15- otc unable to verify Centrum 18-400 mg-mcg Tablet 1 tab PO QAM Patient Comments: 04/15- otc unable to verify levothyroxine 75 mcg Tablet 75 mcg PO Q2D Rx Instructions: ALTERNATE WITH 50MCG dicyclomine 10 mg capsule 10 mg PO BID Humira 40 mg/0.8 mL Syringe Kit 40 mg SUBCUT Q7D Rx Instructions: SATURDAYS. fentanyl 25 mcg/hr patch 72 hour 1 patch transdermal Q72H aripiprazole 5 mg Tablet 5 mg PO HS aspirin [Adult Aspirin Regimen] 81 mg tablet,delayed release (DR/EC) 81 mg PO BID Qty: 84 0RF Patient Comments: 04/15- otc unable to verify famotidine 20 mg tablet 20 mg PO DAILY PRN (Reason: Indigestion) duloxetine 60 mg capsule,delayed release(DR/EC) 60 mg PO QAM furosemide 20 mg tablet 20 mg PO QAM Hold Instructions: Resume on 04/01/25. atorvastatin 40 mg Tablet 40 mg PO QAM Qty: 30 0RF collagen 1 dose PO QAM Patient Comments: 04/15- otc unable to verify Rx Instructions: liquid collagen aspirin [Children's Aspirin] 81 mg tablet,chewable 81 mg PO QAM Patient Comments: 04/15- otc unable to verify Referrals Referrals: Ernestina Swanson DO [Primary Care Provider] -
--- NOTE | 2025-04-15 12:37 | XRay Report ---
XR hip LT 2V w pelvis CLINICAL HISTORY: pain, recent surgery COMPARISON: 03/26/2025 FINDINGS: Bilateral hip prostheses show no hardware complication. Stable calcifications adjacent to the greater trochanters bilaterally. No acute fracture or dislocation seen. IMPRESSION: No acute fracture seen. ACT 112: Negative or not required by law. Electronically signed by: Spencer Leung M.D. 04/15/2025 12:35 PM
[2025-04-15] MEDS: ACETAMINOPHEN 325 MG TAB PO STA (13:23)
[2025-04-15] MEDS: METHOCARBAMOL 500 MG TABLET PO STA (13:40)
[2025-04-15] MEDS: IBUPROFEN 200 MG TAB PO STA (17:22)
[2025-04-15] MEDS ORDERED: ONDANSETRON INJ 2 MG/ML 2 ML VIAL IV PRN (17:56)
[2025-04-15] MEDS ORDERED: ALUMINUM/MAGNESIUM SUSP 30 ML UDC PO PRN (17:56)
--- NOTE | 2025-04-15 18:09 | History & Physical Report ---
Date of Service April 15, 2025 Assessment & Plan (1) Acute pain of left hip: Plan: Romina Jensen is a 84 yo woman with PMH of left hip arthritis s/p left hip arthroplasty on 03/25/[address] Roberth Ortiz, RA, A-fib, sick sinus s/p pacemaker, hypothyroidism, RA, GERD, IBS she was dc with aspirin BID for DVT prophylaxis, hydrocodone and fentanyl patch for pain control on 04/15, been having significant left hip pain inability to wear weight and here for evaluation family significant she significantly weaker compare to her baselin and requested PT/OT evaluation and requested placement [facility] 1. left hip apin 2. left hip osteoarthritis s/p arthroplasty on 03/25 3. ambulatory dysfunction 4. A-fib s/p watchman, sick sinus s/p pacemaker 5. IBS, GERD. 6. RA 7. STEPHANIE 8. hypothyroidism 9. hx of oxycodone allergy (hallucination) 10. hx of contrast allergy left hip pain hydrocodone, fentanyl robaxin for pain control duplex ultrasound for DVT rule out left hip osteoarthritis s/p arthroplasty on 03/25 aspirin 81mg BID heparin while here deposition; family requsted for [facility] (2) Osteoarthritis of left hip: (3) Ambulatory dysfunction: History of Present Illness Chief Complaint: left hip pain after surgery weakness after surgery Primary Care Provider: Ernestina Swanson DO Romina Jensen is a 84 yo woman with PMH of left hip arthritis s/p left total hip arthroplasty by Dr. Roberth Ortiz on 03/25/2025; A-fib s/p watchman, sick sinus s/p pacemaker, RA, IBS, GERD, migraine, hx of traumatic brain injury she has oxycodone (hallucination reaction) and contrast allergy. she's has surgical repair of Left hip by Dr. Roberth Ortiz. on 03/25/2025, started on aspirin BID for DVT prophylaxis and pain control with fentanyl 25mcg and tramadol. she was on hydrocodone for pain control and was having home PT services on 04/15/2025, she's mentioned significant hip pain and significant weakness and [facility]. her family concerned about her weakness, risk of falling and inability to safely manage at home. she will be admitted to medicine services for pain control and admitted for PT/OT evaluation and placement to [facility] she's has no chest pain, no shortness of breath no dizziness; AAOx3 she is full code. she's designated her daughter and her as decision maker her medical record mentioned allergy to oxycodone (hallucination ) Allergies Allergy/AdvReac Type Severity Reaction Status Date / Time bee venom protein (honey bee) Allergy Severe Swelling Verified 03/25/25 06:14 Iodinated Contrast Media Allergy Intermediate Passed Verified 03/25/25 06:14 out, "cold" feeling venlafaxine Allergy Unknown Unknown Verified 03/25/25 06:14 atorvastatin AdvReac Intermediate Joint Pain Verified 03/25/25 06:14 gabapentin AdvReac Intermediate Severe Verified 03/25/25 06:14 headaches & worsens the pain oxycodone AdvReac Intermediate Hallucinati Verified 03/25/25 06:14 ons rosuvastatin [From Crestor] AdvReac Intermediate Joint Pain Verified 03/25/25 06:14 shellfish derived AdvReac Intermediate Headache Verified 03/25/25 06:14 Home Medications Medication Instructions Recorded Confirmed Type calcium 650 mg-vitamin D3 12.5 1 tab PO BID 03/05/19 04/15/25 History mcg-vitamin K 40 mcg chewable tablet (Viactiv) levothyroxine 75 mcg tablet 75 mcg PO Q2D 11/02/20 04/15/25 History levothyroxine 50 mcg tablet 50 mcg PO Q2D 01/30/21 04/15/25 History lorazepam 0.5 mg tablet 0.5 mg PO DAILY PRN Anxiety 01/30/21 04/15/25 History pantoprazole 40 mg tablet,delayed 40 mg PO BID 01/30/21 04/15/25 History release dicyclomine 10 mg capsule 10 mg PO BID Abdominal Pain 04/11/22 04/15/25 History adalimumab 40 mg/0.8 mL 40 mg subcut Q7D 04/12/22 04/15/25 History subcutaneous syringe kit (Humira) mv-mn-folic 200 mcg-vit K 15 1 cap PO BID 10/21/22 04/15/25 History mcg-lutein 5 mg-zeaxanthin 1 mg capsule (PreserVision AREDS 2 Plus Multivit) polyethylene glycol 3350 17 gram 17 g PO UD PRN Constipation 10/21/22 04/15/25 History oral powder packet (Miralax) fentanyl 25 mcg/hr transdermal 1 patch transdermal Q72H 05/14/23 04/15/25 History patch sucralfate 100 mg/mL oral 5 ml PO DAILY PRN Abdominal Pain 05/14/23 04/15/25 History suspension multivitamin-ferrous 1 tab PO QAM 06/11/23 04/15/25 History fumarate-folic acid 18 mg-400 mcg tablet (Centrum) duloxetine 60 mg capsule,delayed 60 mg PO QAM 09/30/23 04/15/25 History release famotidine 20 mg tablet 20 mg PO DAILY PRN Indigestion 09/30/23 04/15/25 History furosemide 20 mg tablet 20 mg PO QAM 09/30/23 04/15/25 History atorvastatin 40 mg tablet 40 mg PO QAM #30 tabs 10/03/23 04/15/25 Rx aspirin 81 mg chewable tablet 81 mg PO QAM 03/31/24 04/15/25 History (Children's Aspirin) collagen 1 dose PO QAM 03/31/24 04/15/25 History ondansetron HCl 4 mg tablet 4 mg PO Q6H PRN nausea and 05/19/24 04/15/25 Rx vomiting #20 tabs aripiprazole 5 mg tablet 5 mg PO HS 02/23/25 04/15/25 History aspirin 81 mg tablet,delayed 81 mg PO BID #84 tabs 03/25/25 04/15/25 Rx release (Adult Aspirin Regimen) tramadol 50 mg tablet 50 mg PO Q6H PRN pain #30 tabs 03/30/25 04/15/25 Rx Past Med/Surg History Problem List (Updated 04/15/25 @ 18:08 by Shan Peralta DO) Ambulatory dysfunction History of left hip replacement (Acute) Acute pain of left hip (Acute) Status post left hip replacement (~03/2025) Osteoarthritis of left hip STEPHANIE (generalized anxiety disorder) Major depressive disorder, recurrent, severe without psychotic features Greater trochanteric bursitis of both hips Lumbar spondylosis Basal cell carcinoma Depression HTN (hypertension) PAF (paroxysmal atrial fibrillation) Tendonitis of shoulder, left Trochanteric bursitis of left hip ARTHUR (obstructive sleep apnea) GERD (gastroesophageal reflux disease) Rheumatoid arthritis Hypothyroidism Medical History Age related osteoporosis Anemia PCP monitoring Anxiety Chronic abdominal pain Chronic nausea Chronic pain syndrome Follows with specialist (Dr. Alfred Caballero/[place]) Depression Dyslipidemia Fatigue Chronic Fibromyalgia Generalized weakness GERD (gastroesophageal reflux disease) History of concussion Remote hx 2017, residual headaches History of COVID-19 10/2022, [facility] hospitalization > symptoms resolved except residual fatigue History of skin cancer BCC, s/p excision Hx of colonic polyps Hx of sleep apnea CPAP Hx pulmonary embolism s/p fall (early 2023) Hypertension Hypothyroidism JUDI (iron deficiency anemia) Lumbar spondylosis Nutcracker esophagus On home oxygen therapy 2 LPM PRN daytime + 4 LPM HS Osteoarthritis Pacemaker [employer], implanted 2020 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 Pancreatic insufficiency per medical record, pt unsure/unaware Paroxysmal atrial fibrillation Presence of Watchman left atrial appendage closure device Rheumatoid arthritis Rotator cuff tear arthropathy of right shoulder Decision to continue monitoring/non-surgical management per patient Scoliosis Stroke Possible CVA (09/30/23), [facility] admisison > stroke-like symptoms including speech slurring > received tPA, no acute head imaging findings, unremarkable echo, started on ASA/statin per neuro recommendations Urge incontinence of urine Surgical History History of appendectomy History of bilateral cataract extraction History of bladder suspension procedure History of cardiac cath 2018- no stents History of colonoscopy History of endoscopy + dilation History of eye surgery laser History of laparoscopic cholecystectomy History of lumbar fusion History of partial colectomy History of partial hysterectomy History of rectocele repair w/mesh (mesh since removed) History of repair of right rotator cuff History of right knee surgery bursa sac removed History of total left knee replacement Hx of heart surgery Watchman procedure, 11/2023 ([facility] [place]) S/P insertion of spinal cord stimulator Subsequent removal S/P repair of paraesophageal hernia S/P total right hip arthroplasty Right anterior PHILLIP (05/07/24): SAB at L3-4 at [facility] Family History Sister Colorectal cancer Hypertension Mother Stroke Hypertension Other No pertinent family history Social History Smoking Status: Never smoker Second Hand Exposure: No; Do You Dip or Chew Tobacco: No; Hx Alcohol Use: No Hx Substance Use: No Preferred Language: Wolof Communication Ability: Effective Visual Impairment: No Limitations Hearing Ability: Normal Critical Care Unit Manager Required: No Beliefs That Will Affect Care: None marital status: Current Living Situation: Spouse Current Living Situation Comment: current occupational status: retired Feels Safe at Home: Yes Gender Identity: Female Assistive Devices: Cane, CPAP, Glasses, Oxygen - at Night and Walker Review of Systems Review of Systems: Constitutional: No Weight Change, No Fever, No Chills, No Night Sweats, No Fatigue, No Malaise Cardiovascular: No Chest Pain, No SOB, No PND, No Dyspnea on Exertion, No Orthopnea, No Claudication, No Edema, No Palpitations Respiratory: No Cough, No Sputum, No Wheezing, No Smoke Exposure, No Dyspnea Gastrointestinal: No Nausea, No Vomiting, No Diarrhea, No Constipation, No Pain, No Heartburn, No Anorexia, No Dysphagia, No Hematochezia, No Melena, + for hx of GERD and IBS Genitourinary: no dysuria; + for renal cysts Musculoskeletal: + for left hip replacement. + for left hip pain + for hx of knee replacement; + for hx of right hip replacement Skin: + for hx of skin cancer Neuro: No Weakness, No Numbness, No Paresthesias, No Loss of Consciousness, No Syncope, No Dizziness, No Headache, No Coordination Changes, No Recent Falls Psych: No Anxiety/Panic, No Depression, No Insomnia, No Personality Changes, No Delusions, No Rumination, No SI/HI/AH/VH, No Social Issues, No Memory Camp ges, No Violence/Abuse Hx., No Eating Concerns Heme/Lymph: No Bruising, No Bleeding, No Transfusions History, No Lymphadenopathy Endocrine: No Polyuria, No Polydipsia, No Temperature Intolerance Physical Exam Physical Exam: VITALS: Reviewed. WEIGHT/BMI reviewed. GEN: Healthy appearing, well-developed, NAD. PSYCH: Good Judgment. AOx3. Normal memory, mood, and affect. HEENT -Head: NC/AT; -Eyes: PERRL, EOMI. No discharge or redn ess; -Mouth and throat: MMM. Normal gums, muc arthur, palate,. Good dentition. NECK: Supple, with no masses. CV: RRR, no m/r/g. + for pacemaker; + for watchmen device LUNGS: CTAB, no w/r/c. ABD: Soft, NT/ND, NBS, no masses or organomegaly. MSK: left hip positive for incision; normal sensation to soft touch. EXT: No clubbing, cyanosis, or edema. NEURO: AAOx3 Results & Data Results & Data Vital Signs (Past 12 Hours) Vital Signs Temp Pulse Pulse Resp BP BP Pulse Ox 04/15/25 17:24 69 18 139/75 100 04/15/25 15:32 76 18 145/83 H 100 04/15/25 14:05 78 20 131/72 04/15/25 11:44 36.9 C 75 16 151/80 H 96 O2 Del Method O2 Flow Rate 04/15/25 17:24 Nasal Cannula 2 04/15/25 15:32 Room Air 04/15/25 14:05 04/15/25 11:44 Room Air Laboratory Results Laboratory Results - last 72 hr 04/15/25 17:38 WBC Cancelled RBC Cancelled Hgb Cancelled Hct Cancelled MCV Cancelled MCH Cancelled MCHC Cancelled RDW Std Deviation Cancelled RDW Coeff of Kim Cancelled Plt Count Cancelled MPV Cancelled Immature Gran % (Auto) Cancelled Neut % (Auto) Cancelled Lymph % (Auto) Cancelled [place] % (Auto) Cancelled Eos % (Auto) Cancelled Baso % (Auto) Cancelled Neut # (Auto) Cancelled Lymph # (Auto) Cancelled [place] # (Auto) Cancelled Eos # (Auto) Cancelled Baso # (Auto) Cancelled Immature Gran # (Auto) Cancelled Absolute Nucleated RBC Cancelled Nucleated RBC % (auto) Cancelled Neutrophils % (Manual) Cancelled Band Neutrophils % Cancelled Lymphocytes % (Manual) Cancelled Prolymphocyte % Cancelled Reactive Lymphs % (Man) Cancelled Monocytes % (Manual) Cancelled Eosinophils % (Manual) Cancelled Basophils % (Manual) Cancelled Metamyelocytes % (Man) Cancelled Myelocytes % (Man) Cancelled Promyelocytes % (Man) Cancelled Blast Cells % (Manual) Cancelled Plasma Cell % (Manual) Cancelled Other Cells % Cancelled Nucleated RBC % Cancelled Neutrophils # (Manual) Cancelled Band Neutrophils # Cancelled Total Absolute Neuts Cancelled Lymphocytes # (Manual) Cancelled Prolymphocyte # Cancelled Reactive Lymphs # Cancelled Total Abs Lymphocytes Cancelled Monocytes # (Manual) Cancelled Eosinophils # (Manual) Cancelled Basophils # (Manual) Cancelled Metamyelocytes # (Man) Cancelled Myelocytes # (Manual) Cancelled Promyelocytes # (Man) Cancelled Blast Cells # (Man) Cancelled Plasma Cell # (Manual) Cancelled Other Cells # Cancelled Nucleated RBCs # (Man) Cancelled Hypersegmented Neuts Cancelled Hyposegmented Neuts Cancelled Hypogranular Neuts Cancelled Large Granular Lymphs Cancelled # Lrg Granular Lymphs Cancelled Hairy Cells Cancelled Smudge Cells Cancelled Toxic Granulation Cancelled Toxic Vacuolation Cancelled Dohle Bodies Cancelled [place] Rods Cancelled Platelet Estimate Cancelled Hypogranular Platelets Cancelled Giant Platelets Cancelled Platelet Satelliting Cancelled RBC Morphology Cancelled Polychromasia Cancelled Hypochromasia Cancelled Poikilocytosis Cancelled Basophilic Stippling Cancelled Anisocytosis Cancelled Microcytosis Cancelled Macrocytosis Cancelled Spherocytes Cancelled Pappenheimer Bodies Cancelled Sickle Cells Cancelled Target Cells Cancelled Tear Drop Cells Cancelled Ovalocytes Cancelled Stomatocytes Cancelled Gamino-[place] Bodies Cancelled Echinocytes Cancelled Acanthocytes (Spur) Cancelled Rouleaux Cancelled RBC Agglutinates Cancelled Schistocytes Cancelled Sezary Cell Cancelled Blood Parasites ID Cancelled Medications Administered Current Inpatient Medications Al Hydrox/Mg Hydrox/Simethicone (Aluminum/Magnesium Susp 30 Ml Udc) 30 ml PO Q6H PRN PRN Reason: Dyspepsia Stop: 05/15/25 17:55 Ondansetron HCl (Ondansetron Inj 2 Mg/Ml 2 Ml Vial) 4 mg IV Q6H PRN PRN Reason: Nausea Stop: 05/15/25 17:55 PG Care Time/CCT Total # of Minutes Spent Total Time Spent with Patient: Total time spent is greater than 50% in coordination of care (as documented) at patient's floor/unit and/or counseling patient: Coding Level of Care Code 56872 INT INP/OBS CARE 2/55MIN Diagnoses Acute pain of left hip M25.552 Osteoarthritis of left hip M16.12 Ambulatory dysfunction R26.2 Time Spent (min) 55
[2025-04-15 18:20] LABS: Alanine Aminotransferase 18 U/L (7-52); Albumin Globulin Ratio 1.0 (0.9-2); Alkaline Phosphatase 171 U/L (34-104); Bilirubin,Total 0.5 mg/dl (0.2-1.0); Blood Urea Nitrogen 25 mg/dl (6-23); Calcium 9.2 mg/dl (8.6-10.3); Carbon Dioxide 27 mmol/L (21-32); Chloride 106 mmol/L (98-107); Creatinine Clr Calc Pharmacy 34.9 ml/min; Globulin 3.5 gm/dl (2.5-4.0); Glucose 115 mg/dl (70-99(Fasting)); Total Protein 7.1 gm/dl (6.0-8.3)
[2025-04-15 19:02] LABS: Hematocrit (blood only) 30.3 % (37.0-47.0); Hemoglobin 9.7 g/dl (12.0-16.0); Immature Granulocytes # (auto) 0.02 K/uL (0.01-0.20); Immature Granulocytes % (auto) 0.3 %; Mean Corpuscular Hemoglobin 31.2 pg (25.0-34.0); Mean Corpuscular Volume 97.4 fL (80.0-100.0); Platelet Count 242 K/uL (130-400); RDW Standard Deviation 55.3 fL (36.4-46.3); Red Blood Count 3.11 M/uL (4.20-5.40); White Blood Count 6.81 K/ul (4.8-10.8)
[2025-04-15 19:19] LABS: Magnesium 2.0 mg/dl (1.7-2.4); Potassium 4.6 mmol/L (3.5-5.1); Sodium 141.0 mmol/L (136-145)
--- NOTE | 2025-04-15 20:45 | Ultrasound Report ---
Exam: Bilateral lower extremity venous Doppler. History: History of left hip replacement and hip pain. Comparison: Right lower extremity venous Doppler December 07, 2018 and bilateral lower extremity venous Dopplers January 05, 2016. Findings: Along the lateral left thigh there is a hypoechoic mildly through transmitting nonvascular slightly low-level internal echo mass measuring 7.8 x 10.1 x 1.7 cm greatest dimensions. Bilateral common femoral, femoral, popliteal, posterior tibial, peroneal and anterior tibial veins demonstrate compression, augmentation and/or color flow. Impression: 1. No appreciated deep vein thrombosis. 2. Large fluid collection left lateral thigh soft tissues adjacent to the hip incision. No color flow. Suspect seroma or resolving hematoma. Nonsterile fluid collection is not excluded in the appropriate clinical setting. Electronically signed by Zafar Phoenix 04-15-2025 8:45 PM
[2025-04-15] MEDS ORDERED: LORazepam 0.5 MG TAB PO PRN (21:27)
[2025-04-15] MEDS ORDERED: NON-FORMULARY MEDICATION (Mv-Min-Fa-Vit K-Lutein-Zeaxant [Preservision Areds 2 Plus Mv] 20 PO SCH (21:27)
[2025-04-15] MEDS ORDERED: FAMOTIDINE 20 MG TAB PO PRN (21:27)
[2025-04-15] MEDS ORDERED: ONDANSETRON 4 MG OD TAB PO PRN (21:41)
[2025-04-15] MEDS: CALCIUM 600MG + VIT D 400 IU TAB PO SCH (22:11)
[2025-04-15] MEDS: ARIPiprazole 5 MG TAB PO SCH (22:11)
[2025-04-15] MEDS: DICYCLOMINE HCL 10 MG CAP PO SCH (22:11)
[2025-04-15] MEDS: ASPIRIN 81 MG ECTAB PO SCH (22:11)
[2025-04-15] MEDS: HEPARIN SOD 5,000 UNIT/0.5 ML VIAL SQ SCH (22:11)
[2025-04-16] MEDS: LIDOCAINE 5% 1 PATCH TD STA (02:00)
[2025-04-16] MEDS: LEVOTHYROXINE SODIUM 50 MCG TABLET PO SCH (05:40)
[2025-04-16] MEDS: ACETAMINOPHEN 500 MG TAB PO PRN (05:40)
[2025-04-16] MEDS: FUROSEMIDE 20 MG TAB PO SCH (08:51)
[2025-04-16] MEDS: ATORVASTATIN 40 MG TAB PO SCH (08:51)
[2025-04-16] MEDS: CEROVITE ADV FORMULA TAB PO SCH (08:51)
[2025-04-16] MEDS: SUCRALFATE 1 GM/10 ML UDC PO PRN (08:51)
--- NOTE | 2025-04-16 08:51 | Orthopedic Consultation ---
Date of Service April 16, 2025 Assessment & Plan (1) Lumbar radiculopathy: I went over possible diagnosis and treatment options with her at bedside. The x-rays look okay with her hip and I see no surgical indications at this time. The fact that the pain radiates all the way down to her ankle and is a throbbing type pain makes me think this may be radicular in nature. She is currently on aspirin for DVT prophylaxis from her hip replacement and a fentanyl patch to help with her pain. She says the fentanyl patch is helping a little bit. I would recommend a dose of IV Decadron to help with her radicular pain if medicine feels it is safe to give. I do not see any surgical indications at this time. She is orthopedically stable for discharge to rehab when a bed becomes available. I will follow-up with her in our office as previously scheduled. History of Present Illness Reason for Consultation: Left hip pain. Requesting Physician: . Attending Physician: Shan Peralta DO Romina is a pleasant 84-year-old female who underwent a left hip replacement about 3 weeks ago. Her recovery has been relatively uneventful until recently. She was trying to walk down a few stairs a couple days ago when she began having significant pain in her left leg as soon as she put her left leg down a step. She was helped by her . She says the pain initially started in her thigh but now is radiating all the way down to her ankle. She does have an extensive back history. She has had multiple back surgeries. She does have a pain management physician she sees for back injections in [place]. Her last injection was about 3 months ago. She came to the emergency room. X-rays of her left hip were negative. She was initially planning to go to [facility] but she was admitted for pain control and possibly placement on Friday. Orthopedics was consulted to evaluate and treat.. Allergies Allergy/AdvReac Type Severity Reaction Status Date / Time bee venom protein (honey bee) Allergy Severe Swelling Verified 03/25/25 06:14 Iodinated Contrast Media Allergy Intermediate Passed Verified 03/25/25 06:14 out, "cold" feeling venlafaxine Allergy Unknown Unknown Verified 03/25/25 06:14 atorvastatin AdvReac Intermediate Joint Pain Verified 03/25/25 06:14 gabapentin AdvReac Intermediate Severe Verified 03/25/25 06:14 headaches & worsens the pain oxycodone AdvReac Intermediate Hallucinati Verified 03/25/25 06:14 ons rosuvastatin [From Crestor] AdvReac Intermediate Joint Pain Verified 03/25/25 06:14 shellfish derived AdvReac Intermediate Headache Verified 03/25/25 06:14 Home Medications Medication Instructions Recorded Confirmed Type calcium 650 mg-vitamin D3 12.5 1 tab PO BID 03/05/19 04/15/25 History mcg-vitamin K 40 mcg chewable tablet (Viactiv) levothyroxine 75 mcg tablet 75 mcg PO Q2D 11/02/20 04/15/25 History levothyroxine 50 mcg tablet 50 mcg PO Q2D 01/30/21 04/15/25 History lorazepam 0.5 mg tablet 0.5 mg PO DAILY PRN Anxiety 01/30/21 04/15/25 History pantoprazole 40 mg tablet,delayed 40 mg PO BID 01/30/21 04/15/25 History release dicyclomine 10 mg capsule 10 mg PO BID Abdominal Pain 04/11/22 04/15/25 History adalimumab 40 mg/0.8 mL 40 mg subcut Q7D 04/12/22 04/15/25 History subcutaneous syringe kit (Humira) mv-mn-folic 200 mcg-vit K 15 1 cap PO BID 10/21/22 04/15/25 History mcg-lutein 5 mg-zeaxanthin 1 mg capsule (PreserVision AREDS 2 Plus Multivit) polyethylene glycol 3350 17 gram 17 g PO UD PRN Constipation 10/21/22 04/15/25 History oral powder packet (Miralax) fentanyl 25 mcg/hr transdermal 1 patch transdermal Q72H 05/14/23 04/15/25 History patch sucralfate 100 mg/mL oral 5 ml PO DAILY PRN Abdominal Pain 05/14/23 04/15/25 History suspension multivitamin-ferrous 1 tab PO QAM 06/11/23 04/15/25 History fumarate-folic acid 18 mg-400 mcg tablet (Centrum) duloxetine 60 mg capsule,delayed 60 mg PO QAM 09/30/23 04/15/25 History release famotidine 20 mg tablet 20 mg PO DAILY PRN Indigestion 09/30/23 04/15/25 History furosemide 20 mg tablet 20 mg PO QAM 09/30/23 04/15/25 History atorvastatin 40 mg tablet 40 mg PO QAM #30 tabs 10/03/23 04/15/25 Rx aspirin 81 mg chewable tablet 81 mg PO QAM 03/31/24 04/15/25 History (Children's Aspirin) collagen 1 dose PO QAM 03/31/24 04/15/25 History ondansetron HCl 4 mg tablet 4 mg PO Q6H PRN nausea and 05/19/24 04/15/25 Rx vomiting #20 tabs aripiprazole 5 mg tablet 5 mg PO HS 02/23/25 04/15/25 History aspirin 81 mg tablet,delayed 81 mg PO BID #84 tabs 03/25/25 04/15/25 Rx release (Adult Aspirin Regimen) tramadol 50 mg tablet 50 mg PO Q6H PRN pain #30 tabs 03/30/25 04/15/25 Rx Past Med/Surg History Problem List (Updated 04/16/25 @ 08:50 by Roberth Ortiz DO) Lumbar radiculopathy Ambulatory dysfunction History of left hip replacement (Acute) Acute pain of left hip (Acute) Status post left hip replacement (~03/2025) Osteoarthritis of left hip STEPHANIE (generalized anxiety disorder) Major depressive disorder, recurrent, severe without psychotic features Greater trochanteric bursitis of both hips Lumbar spondylosis Basal cell carcinoma Depression HTN (hypertension) PAF (paroxysmal atrial fibrillation) Tendonitis of shoulder, left Trochanteric bursitis of left hip ARTHUR (obstructive sleep apnea) GERD (gastroesophageal reflux disease) Rheumatoid arthritis Hypothyroidism Medical History Anemia PCP monitoring Hx pulmonary embolism s/p fall (early 2023) Hx of colonic polyps Chronic nausea Chronic abdominal pain Generalized weakness Fatigue Chronic Lumbar spondylosis Hypothyroidism Hypertension GERD (gastroesophageal reflux disease) Rheumatoid arthritis Stroke Possible CVA (09/30/23), [facility] admisison > stroke-like symptoms including speech slurring > received tPA, no acute head imaging findings, unremarkable echo, started on ASA/statin per neuro recommendations Presence of Watchman left atrial appendage closure device Rotator cuff tear arthropathy of right shoulder Decision to continue monitoring/non-surgical management per patient Chronic pain syndrome Follows with specialist (Dr. Alfred Caballero/[place]) Anxiety Depression On home oxygen therapy 2 LPM PRN daytime + 4 LPM HS History of COVID-19 10/2022, [facility] hospitalization > symptoms resolved except residual fatigue Urge incontinence of urine Nutcracker esophagus Pancreatic insufficiency per medical record, pt unsure/unaware Paroxysmal atrial fibrillation Pacemaker Medtronic, implanted 2020 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 JUDI (iron deficiency anemia) Dyslipidemia History of skin cancer BCC, s/p excision Scoliosis Age related osteoporosis Fibromyalgia Hx of sleep apnea CPAP History of concussion Remote hx 2017, residual headaches Osteoarthritis Surgical History S/P total right hip arthroplasty Right anterior PHILLIP (05/07/24): SAB at L3-4 at [facility] S/P insertion of spinal cord stimulator Subsequent removal Hx of heart surgery Watchman procedure, 11/2023 ([facility] [place]) History of eye surgery laser History of bilateral cataract extraction History of colonoscopy History of total left knee replacement History of rectocele repair w/mesh (mesh since removed) History of laparoscopic cholecystectomy History of right knee surgery bursa sac removed History of lumbar fusion History of endoscopy + dilation History of cardiac cath 2018- no stents S/P repair of paraesophageal hernia History of partial colectomy History of repair of right rotator cuff History of bladder suspension procedure History of appendectomy History of partial hysterectomy Family History Sister Colorectal cancer Hypertension Mother Stroke Hypertension Other No pertinent family history Social History Smoking Status: Never smoker Second Hand Exposure: No; Do You Dip or Chew Tobacco: No; Hx Alcohol Use: No Hx Substance Use: No Preferred Language: Swazi Communication Ability: Effective Visual Impairment: No Limitations Hearing Ability: Normal Bakery Worker Required: No Beliefs That Will Affect Care: None marital status: Current Living Situation: Spouse Current Living Situation Comment: home with current occupational status: retired Feels Safe at Home: Yes Gender Identity: Female Assistive Devices: Denture - Upper, Glasses, Oxygen - at Night, Walker and Wheelchair Review of Systems All systems reviewed & are unremarkable except as noted in HPI & below. Physical Exam On examination of her left leg, she has difficulty doing a straight leg raise. She does have some pain with range of motion but the pain radiates all the way down her leg to her ankle. She says her whole leg is throbbing.. Constitutional WD/WN, vitals as above Eyes PERRL, conjunctivae normal, anicteric sclerae ENMT external ear and nose normal, oropharynx normal Neck trachea midline, no thyromegaly Respiratory normal respiratory effort Cardiovascular RRR, no murmur, no edema Gastrointestinal (Abdomen) normal bowel sounds, soft, nontender, no hepatosplenomegaly Psychiatric A+Ox3, euthymic affect Results & Data Results & Data Laboratory Results . Diagnostic Findings X-rays of the left hip were evaluated and show no evidence of fracture. Prosthesis seems to be in good alignment.. PG Care Time/CCT Total # of Minutes Spent Total Time Spent with Patient: Total time spent is greater than 50% in coordination of care (as documented) at patient's floor/unit and/or counseling patient: Coding Level of Care Code 79100 IN/OBS CONSULT LVL 4,60M Diagnoses Lumbar radiculopathy M54.16
[2025-04-16] MEDS ORDERED: COLLAGEN PO SCH (09:00)
--- NOTE | 2025-04-16 11:31 | Hospitalist Progress Note ---
Date of Service April 16, 2025 Assessment & Plan (1) Acute pain of left hip: Plan: Romina Jensen is a 84 yo woman with PMH of left hip arthritis s/p left hip arthroplasty on 03/25/[address] Roberth Ortiz, RA, A-fib, sick sinus s/p pacemaker, hypothyroidism, RA, GERD, IBS she was dc with aspirin BID for DVT prophylaxis, hydrocodone and fentanyl patch for pain control on 04/15, been having significant left hip pain inability to wear weight and here for evaluation family significant she significantly weaker compare to her baselin and requested PT/OT evaluation and requested placement to [facility] 1. left hip apin 2. left hip osteoarthritis s/p arthroplasty on 03/25 3. ambulatory dysfunction 4. A-fib s/p watchman, sick sinus s/p pacemaker 5. IBS, GERD. 6. RA 7. STEPHANIE 8. hypothyroidism 9. hx of oxycodone allergy (hallucination) 10. hx of contrast allergy left hip pain hydrocodone, fentanyl robaxin for pain control duplex ultrasound for DVT rule out f/u on CT hip, pelvis and lumbar to r/o compression deposition placement to [facility] for rehab left hip osteoarthritis s/p arthroplasty on 03/25 aspirin 81mg BID heparin while here deposition; family requsted for [facility] (2) Osteoarthritis of left hip: (3) Ambulatory dysfunction: Admission and Anticipated Discharge Date Admission Date: April 15, 2025 Subjective still have significant left hip pain recently hip surgery 3-4 weeks ago plan for repeat CT imaging to r/o pelvis fracture requesting placement to [facility] Physical Exam Physical Exam: VITALS: Reviewed. WEIGHT/BMI reviewed. GEN: Healthy appearing, well-developed, NAD. -Head: NC/AT; -Mouth and throat: MMM. Normal gums, muc markie, palate,. Good dentition. NECK: Supple, with no masses. CV: RRR, no m/r/g. LUNGS: CTAB, no w/r/c. on oxygen ABD: Soft, NT/ND, NBS, no masses or organomegaly. : N/A MSK: left hip incision intact; painful to palpation EXT: No clubbing, cyanosis, or edema. NEURO: AAox3 Results & Data Results & Data Vital Signs (Past 12 Hours) Vital Signs Temp Pulse Pulse Resp BP Pulse Ox O2 Del Method 04/16/25 11:26 36.6 C 91 H 20 107/68 96 Room Air 04/16/25 10:54 Nasal Cannula 04/16/25 10:10 86 04/16/25 08:31 37.0 C 81 20 115/64 98 Nasal Cannula 04/16/25 05:03 36.9 C 83 18 137/77 99 Nasal Cannula 04/16/25 01:38 67 115/70 04/15/25 23:30 36.9 C 88 18 132/73 99 Nasal Cannula O2 Flow Rate 04/16/25 11:26 04/16/25 10:54 2 04/16/25 10:10 04/16/25 08:31 2 04/16/25 05:03 2 04/16/25 01:38 04/15/25 23:30 2 Laboratory Results Laboratory Results - last 72 hr 04/15/25 04/15/25 17:38 18:50 WBC Cancelled 6.81 RBC Cancelled 3.11 L Hgb Cancelled 9.7 L Hct Cancelled 30.3 L MCV Cancelled 97.4 MCH Cancelled 31.2 MCHC Cancelled 32.0 RDW Std Deviation Cancelled 55.3 H RDW Coeff of Kim Cancelled 15.4 H Plt Count Cancelled 242 MPV Cancelled 8.6 L Immature Gran % (Auto) Cancelled 0.3 Neut % (Auto) Cancelled 55.6 Lymph % (Auto) Cancelled 26.4 [place] % (Auto) Cancelled 14.4 Eos % (Auto) Cancelled 2.6 Baso % (Auto) Cancelled 0.7 Neut # (Auto) Cancelled 3.78 Lymph # (Auto) Cancelled 1.80 [place] # (Auto) Cancelled 0.98 H Eos # (Auto) Cancelled 0.18 Baso # (Auto) Cancelled 0.05 Immature Gran # (Auto) Cancelled 0.02 Absolute Nucleated RBC Cancelled Nucleated RBC % (auto) Cancelled Neutrophils % (Manual) Cancelled Band Neutrophils % Cancelled Lymphocytes % (Manual) Cancelled Prolymphocyte % Cancelled Reactive Lymphs % (Man) Cancelled Monocytes % (Manual) Cancelled Eosinophils % (Manual) Cancelled Basophils % (Manual) Cancelled Metamyelocytes % (Man) Cancelled Myelocytes % (Man) Cancelled Promyelocytes % (Man) Cancelled Blast Cells % (Manual) Cancelled Plasma Cell % (Manual) Cancelled Other Cells % Cancelled Nucleated RBC % Cancelled Neutrophils # (Manual) Cancelled Band Neutrophils # Cancelled Total Absolute Neuts Cancelled Lymphocytes # (Manual) Cancelled Prolymphocyte # Cancelled Reactive Lymphs # Cancelled Total Abs Lymphocytes Cancelled Monocytes # (Manual) Cancelled Eosinophils # (Manual) Cancelled Basophils # (Manual) Cancelled Metamyelocytes # (Man) Cancelled Myelocytes # (Manual) Cancelled Promyelocytes # (Man) Cancelled Blast Cells # (Man) Cancelled Plasma Cell # (Manual) Cancelled Other Cells # Cancelled Nucleated RBCs # (Man) Cancelled Hypersegmented Neuts Cancelled Hyposegmented Neuts Cancelled Hypogranular Neuts Cancelled Large Granular Lymphs Cancelled # Lrg Granular Lymphs Cancelled Hairy Cells Cancelled Smudge Cells Cancelled Toxic Granulation Cancelled Toxic Vacuolation Cancelled Dohle Bodies Cancelled [place] Rods Cancelled Platelet Estimate Cancelled Hypogranular Platelets Cancelled Giant Platelets Cancelled Platelet Satelliting Cancelled RBC Morphology Cancelled Polychromasia Cancelled Hypochromasia Cancelled Poikilocytosis Cancelled Basophilic Stippling Cancelled Anisocytosis Cancelled Microcytosis Cancelled Macrocytosis Cancelled Spherocytes Cancelled Pappenheimer Bodies Cancelled Sickle Cells Cancelled Target Cells Cancelled Tear Drop Cells Cancelled Ovalocytes Cancelled Stomatocytes Cancelled Gamino-[place] Bodies Cancelled Echinocytes Cancelled Acanthocytes (Spur) Cancelled Rouleaux Cancelled RBC Agglutinates Cancelled Schistocytes Cancelled [place]zary Cell Cancelled Sodium TNP 141 Potassium TNP 4.6 Chloride 106 Carbon Dioxide 27 Anion Gap TNP BUN 25 H Creatinine 0.97 Est Cr Clr Drug Dosing 34.9 eGFR 58.34 BUN/Creatinine Ratio 25.8 H Glucose 115 H Calcium 9.2 Magnesium TNP 2.0 Total Bilirubin 0.5 AST TNP 21 ALT 18 Alkaline Phosphatase 171 H Total Protein 7.1 Albumin 3.6 Globulin 3.5 Albumin/Globulin Ratio 1.0 Blood Parasites ID Cancelled PG Care Time/CCT Total # of Minutes Spent Total Time Spent with Patient: Total time spent is greater than 50% in coordination of care (as documented) at patient's floor/unit and/or counseling patient: Coding Level of Care Code 47371 SUB INP/OBS CARE 1/25MIN Diagnoses Acute pain of left hip M25.552 Osteoarthritis of left hip M16.12 Ambulatory dysfunction R26.2 Time Spent (min) 25
[2025-04-16] MEDS: POLYETHYLENE (MIRALAX) 17 GM PACK PO PRN (12:30)
[2025-04-16] MEDS: METHOCARBAMOL 500 MG TABLET PO SCH (13:33)
--- NOTE | 2025-04-16 14:25 | CT Scan Report ---
CT left hip without contrast History: Pain. Recent hip replacement. Comparison: Plain film correlate March 31, 2024. Study report not available at the time of dictation. Technique: Routine axial CT images with coronal and sagittal reconstructions without contrast of the left hip were obtained and reviewed. Dose reduction techniques were achieved by using automatic exposure control and/or adjustment of mA and/or kV according to patient size and/or use of iterative reconstruction technique. Findings: Supervisor Machining film demonstrates lower lumbar fusion hardware in bilateral hip arthroplasty changes. Soft tissue windows demonstrate portions of the exam to be limited secondary to patient motion and streak artifact from left hip arthroplasty hardware. Fatty infiltration gluteus musculature. Scattered elements of calcifications along the left lateral para-articular hip soft tissues. Edematous changes of the lateral hip musculature and subcutaneous soft tissues. No discrete drainable fluid collection. Bone windows demonstrate diffuse demineralization. This limits the sensitivity of nondisplaced fractures. Callus ration along the inferior left pubic ramus is noted. Correlate clinically for prior fracture. Similar findings along the superior pubic ramus at the level of the acetabular junction. Orthopedic hardware appears to be well-seated without loosening. Lucency involving the medial acetabulum most worrisome for nondisplaced fracture. This is best seen on the coronal series. Additional small fracture deformity involving the expected region of the lesser trochanter along the medial aspect of the femoral stem component. Impression: 1. Left hip arthroplasty changes with orthopedic hardware appearing to be well-seated and intact. 2. Nondisplaced acetabular fracture as described above. Additional likely at least subacute superior and inferior pubic rami fractures. Recommend plain film correlation. Electronically signed by Zafar Phoenix 04-16-2025 2:25 PM
--- NOTE | 2025-04-16 14:33 | CT Scan Report ---
CT Lumbar spine without IV contrast History: Left hip pain. Recent hip replacement. Back pain. Evaluate for compression fracture. Comparison: November 26, 2022. Technique: Using multidetector thin collimation helical acquisition technique, axial, coronal and sagittal CT images through the Lumbar spine were obtained without intravenous contrast. Dose reduction techniques were achieved by using automatic exposure control and/or adjustment of mA and/or kV according to patient size and/or use of iterative reconstruction technique. Findings: Aircraft Inspector film demonstrate lower lumbar fusion hardware. Bilateral hip arthroplasty changes. Advanced degenerative changes of the thoracolumbar spine. Lung windows demonstrate at least mild subsegmental ectasis included pulmonary bases. Soft tissue windows demonstrate portions of the exam to be limited secondary to streak artifact from lower lumbar fusion hardware. Multilevel degenerative changes yielding moderate to marked spinal canal and marked foraminal stenoses. Bone windows demonstrate diffuse demineralization. This decreases the sensitivity of nondisplaced fractures. Remote bilateral 12th rib fractures. Advanced multilevel disc degeneration with associated endplate osteophytes. Bilateral pedicle screws and vertical fixation rods L5-S1. Intervertebral graft and laminectomy changes at this level is noted. Hardware appears to be intact without appreciated loosening. Grade 1 anterolisthesis L5 on S1. Abundant facet arthropathy changes lower lumbar spine. Acquired fusion changes L5-S1 and L4 and L5. Interval at least mild inferior endplate compression fracture deformity of L2. This is difficult to appreciate with certainty on prior exam. No additional appreciated fractures. Impression: Advanced multilevel degenerative changes with lumbosacral spine fusion stable when compared to prior exam. Slight interval inferior endplate compression fracture deformity of L2 is noted. Chronicity is indeterminant. At least moderate spinal canal and marked foraminal stenoses are noted. No additional acute process. Please see above for details. Electronically signed by Zafar Phoenix 04-16-2025 2:33 PM
[2025-04-16] MEDS: REMOVE LIDODERM PATCH ONE (14:35)
--- NOTE | 2025-04-16 14:41 | CT Scan Report ---
EXAMINATION: CT of the abdomen and pelvis performed without contrast. TECHNIQUE: Helical CT images from the lung bases through the symphysis pubis were obtained without contrast. Coronal and sagittal reformatted images were generated at a workstation for further assessment. Dose reduction techniques were achieved by using automatic exposure control and/or adjustment of mA and/or kV according to patient size and/or use of iterative reconstruction technique. COMPARISON: October 30, 2022. HISTORY: Back pain. Left hip pain. FINDINGS: Dental Secretary film demonstrates lumbosacral fusion hardware. Bilateral hip arthroplasty changes. Lung windows demonstrate bibasilar subsegmental atelectasis. Soft tissue windows demonstrate partially included left atrial appendage occlusion device. Calcified atherosclerotic changes coronary vasculature. Calcifications aortic valve. Portions of the exam limited secondary to streak artifact from lumbosacral spine fusion hardware. Small sliding-type hiatal hernia. Cholecystectomy changes. Radiopaque densities gastric lumen likely representing hemoclips. Additional densities likely representing residual radiopaque medicinal debris or foodstuffs. Streak artifact bilateral hip arthroplasty hardware limits portions of the pelvic evaluation. Uterus is absent. No appreciated adnexal masses. Moderate stool-filled large bowel. Radiopaque staple line proximal large bowel. Correlate with partial colectomy. Appendix not identified. Remaining solid and hollow organs of the abdomen and pelvis are within normal limits. No free air or free fluid. Bone windows demonstrate diffuse demineralization. Remote right superior and inferior pubic rami fractures. Likely at least subacute left superior and inferior pubic rami fractures. Nondisplaced left acetabular fracture. Postsurgical changes lumbosacral spine. Advanced multilevel degenerative changes of the lumbar spine. Remote posterior medial lower rib fractures. Mild inferior endplate compression fracture deformity L2. Chronicity indeterminate. IMPRESSION: 1. Advanced multilevel degenerative changes of the spine with mild inferior endplate compression fracture deformity L2. Chronicity indeterminate. 2. Remote right and subacute left fracture deformities bilateral superior and inferior pubic rami. Additional nondisplaced acute fracture left acetabulum. Recommend plain film correlation. 3. No acute abdomen or pelvic disease. Please see above for details. Electronically signed by Zafar Phoenix 04-16-2025 2:40 PM
[2025-04-16] MEDS: MoRPHine SULFATE 10 MG/0.5 ML UDP PO ONE (15:30)
[2025-04-17] MEDS: LEVOTHYROXINE SODIUM 75 MCG TABLET PO SCH (06:10)
--- NOTE | 2025-04-17 09:46 | Hospitalist Progress Note ---
Date of Service April 17, 2025 Assessment & Plan (1) Acute pain of left hip: Plan: Romina Jensen is a 84 yo woman with PMH of left hip arthritis s/p left hip arthroplasty on 03/25/[address] Roberth Ortiz, RA, A-fib, sick sinus s/p pacemaker, hypothyroidism, RA, GERD, IBS she was dc with aspirin BID for DVT prophylaxis, hydrocodone and fentanyl patch for pain control on 04/15, been having significant left hip pain inability to wear weight and here for evaluation family significant she significantly weaker compare to her baselin and requested PT/OT evaluation and requested [facility] 1. left hip apin 2. left hip osteoarthritis s/p arthroplasty on 03/25 3. ambulatory dysfunction 4. A-fib s/p watchman, sick sinus s/p pacemaker 5. IBS, GERD. 6. RA 7. STEPHANIE 8. hypothyroidism 9. hx of oxycodone allergy (hallucination) 10. hx of contrast allergy left hip pain, hx of left hip arthritis s/p left anterior total hip arthroplasty (03/25/2025) hydrocodone, fentanyl morphine for pain control. she does not has sedation on morphine robaxin DVT prophylaxis, aspirin BID remote right and subacute left fracture deformity b/l superior and inferior pubic rami spoke with Dr. Ortiz (orthopedic) weight bearing as long as pain is acceptable mild inferior endplate compression deformity; L2. deposition placement [facility] left hip osteoarthritis s/p arthroplasty on 03/25 aspirin 81mg BID heparin while here deposition; family requested for [facility] (2) Osteoarthritis of left hip: (3) Ambulatory dysfunction: Admission and Anticipated Discharge Date Admission Date: April 15, 2025 Subjective still have 8/10 sacral pain on fentanyl and hydrocodone added morphine yesterday no sedation c/w morphine s/p CT pelvis yesterday spoke with orthopedic (Dr. Ortiz) about the finding of sacral fracture per orthopedic, weight bearing as tolerated Physical Exam Physical Exam: VITALS: Reviewed. WEIGHT/BMI reviewed. GEN: Healthy appearing, well-developed, NAD. -Head: NC/AT; NECK: Supple, with no masses. CV: RRR, no m/r/g. LUNGS: CTAB, no w/r/c. ABD: Soft, NT/ND, NBS, no masses or organomegaly. : N/A MSK: left hip tender to palpation; sacrum tender to palpitation . NEURO: Ambulating with no limitations. Normal muscle strength and tone. No focal deficits. Results & Data Results & Data Vital Signs (Past 12 Hours) Vital Signs Temp Pulse Pulse Resp BP Pulse Ox O2 Del Method 04/17/25 08:13 36.8 C 88 20 120/73 98 Nasal Cannula 04/17/25 05:47 87 04/17/25 03:09 36.7 C 82 16 108/56 L 100 Nasal Cannula 04/16/25 23:47 80 04/16/25 23:25 36.9 C 79 16 116/71 97 Nasal Cannula O2 Flow Rate 04/17/25 08:13 2 04/17/25 05:47 04/17/25 03:09 2 04/16/25 23:47 04/16/25 23:25 2 PG Care Time/CCT Total # of Minutes Spent Total Time Spent with Patient: Total time spent is greater than 50% in coordination of care (as documented) at patient's floor/unit and/or counseling patient: Coding Level of Care Code 98211 SUB INP/OBS CARE /25MIN Diagnoses Acute pain of left hip M25.552 Osteoarthritis of left hip M16.12 Ambulatory dysfunction R26.2 Time Spent (min) 25
[2025-04-17] MEDS: MoRPHine SULFATE IR 15 MG TAB (IMMEDIATE RELEASE) PO PRN (10:02)
[2025-04-17] MEDS: CEROVITE ADV FORMULA TAB PO SCH (10:03)
--- NOTE | 2025-04-17 13:45 | Orthopedic Progress Note ---
Date of Service April 17, 2025 Assessment & Plan (1) History of left hip replacement: I looked over the CT scan carefully and discussed everything with Shante. She has a couple small cracks around the acetabulum which was known from the surgery. There is a small crack around the proximal femoral prosthesis as well. She had very poor bone quality. I am waiting for the bone to grow into the prosthesis. This process takes about 6 weeks. She may be having some pain from this. She is [facility]. I do want to make her 50% partial weightbearing on her left leg. I want to give this more time to heal. I do not want [facility] or our in-house therapist to be pushing her too hard with walking. Lets give this a chance to heal. I do not see anything surgical. I would like to see her in my office in 3 weeks for repeat x-rays. Orthopedic discharge instructions were placed in the discharge summary. Subjective Romina was seen and examined at bedside this morning. She is still having a lot of pain in her left leg. It is long as she is not walking she is not having much pain. She has pain in her groin. She also has some radicular pain. A CT scan of the left hip was obtained. There is nondisplaced fracture around the acetabulum and possibly in the proximal femur.. Review of Systems All systems reviewed & are unremarkable except as noted in HPI & below. Physical Exam On physical exam of the left hip, she sitting comfortably at bedside. I did raise her leg and do a little internal/external rotation. She has some pain in her groin with that.. Results & Data Results & Data Laboratory Results . Diagnostic Findings CT scan of the left hip was reviewed. There is nondisplaced fracture of the acetabulum. This was known from the surgery. There is also a small nondisplaced fracture of the calcar of the proximal femur. The femoral stem appears to be in good alignment and stable.. PG Care Time/CCT Total # of Minutes Spent Total Time Spent with Patient: Total time spent is greater than 50% in coordination of care (as documented) at patient's floor/unit and/or counseling patient: Coding Level of Care Code 01874 Post Operative Follow-Up Diagnoses History of left hip replacement Z96.642
[2025-04-17] MEDS ORDERED: ENOXAPARIN 1 MG/KG SQ SCH (15:00)
[2025-04-17] MEDS: SODIUM CHLORIDE 0.9% 250 ML IV ONE (15:41)
[2025-04-17] MEDS: ENOXAPARIN INJ 60 MG/0.6 ML SYR SQ SCH (21:32)
--- NOTE | 2025-04-18 11:21 | Nuclear Medicine Report ---
NUCLEAR MEDICINE SENTINEL PERFUSION STUDY CLINICAL HISTORY: tachycardia, recent hip surgery COMPARISON STUDY: Nuclear medicine perfusion study June 09, 2020. Chest CT September 30, 2023. TECHNIQUE: 5.2 mCi of technetium 99m MAA was injected at 10:30 AM on April 18, 2025. Following ra diotracer injection, imaging of the chest was performed in multiple projections. No ventilation imagi ng was performed given ventilation precautions. FINDINGS: No segmental perfusion defects are identified. Asymmetric diminished perfusion within the m ajority of the right lung is noted on the right lateral projection. This may be technical. IMPRESSION: No segmental perfusion defects to strongly suggest pulmonary embolus. However, asymmetri c diminished perfusion to the right lung on the right lateral projection. This may be technical howev er the study is indeterminate/intermediate probability for pulmonary embolus. If possible, a PE yareli col chest CT is recommended. ACT 112: Negative or not required by law. Electronically signed by: Kwasi Muhammad M.D. 04/18/2025 11:20 AM
[2025-04-18] MEDS: MoRPHine SULFATE IR 15 MG TAB (IMMEDIATE RELEASE) PO PRN (14:10)
--- NOTE | 2025-04-18 17:17 | Hospitalist Progress Note ---
Date of Service April 18, 2025 Assessment & Plan (1) Acute pain of left hip: Plan: Romina Jensen is a 84 yo woman with PMH of left hip arthritis s/p left hip arthroplasty on 03/25/[address] Roberth Ortiz, RA, A-fib, sick sinus s/p pacemaker, hypothyroidism, RA, GERD, IBS she was dc with aspirin BID for DVT prophylaxis, hydrocodone and fentanyl patch for pain control on 04/15, been having significant left hip pain inability to wear weight and here for evaluation family significant she significantly weaker compare to her baselin and requested PT/OT evaluation and requested [facility] 1. left hip apin 2. left hip osteoarthritis s/p arthroplasty on 03/25 3. ambulatory dysfunction 4. A-fib s/p watchman, sick sinus s/p pacemaker 5. IBS, GERD. 6. RA 7. STEPHANIE 8. hypothyroidism 9. hx of oxycodone allergy (hallucination) 10. hx of contrast allergy deposition placement to [facility] 50% weight bearing dc barrier awaiting insurance approval left hip pain, hx of left hip arthritis s/p left anterior total hip arthroplasty (03/25/2025) hydrocodone, fentanyl her pain did not improve with hydrocodone started on morphine, no sedation morphine for pain control. she does not has sedation on morphine robaxin DVT prophylaxis, aspirin BID remote right and subacute left fracture deformity b/l superior and inferior pubic rami Dr. Ortiz requested for 50% weight bearing mild inferior endplate compression deformity; L2. deposition placement [facility] left hip osteoarthritis s/p arthroplasty on 03/25 aspirin 81mg BID heparin while here deposition; family requested for [facility] (2) Osteoarthritis of left hip: (3) Ambulatory dysfunction: Admission and Anticipated Discharge Date Admission Date: April 15, 2025 Subjective orthopedic requested for 50% weight bearing she's on morphine and pain well control no sedation insurance has not approve [facility] she need DEXA scan to r/o osteoporosis Physical Exam Physical Exam: VITALS: Reviewed. WEIGHT/BMI reviewed. GEN: Healthy appearing, well-developed, NAD. PSYCH: Good Judgment. AOx3. Normal memory, mood, and affect. HEENT -Head: NC/AT; NECK: Supple, with no masses. CV: RRR, no m/r/g. LUNGS: CTAB, no w/r/c. ABD: Soft, NT/ND, NBS, no masses or organomegaly. : N/A SKIN: Warm, well perfused. No skin rashes or abnormal lesions. MSK: No deformities, Normal gait. left hip painful to palpitation; normal ROM; normal sensation to soft touch EXT: No clubbing, cyanosis, or edema. NEURO: AAOx3. Results & Data Results & Data Vital Signs (Past 12 Hours) Vital Signs Temp Pulse Pulse Resp BP Pulse Ox O2 Del Method 04/18/25 16:34 36.7 C 85 20 109/69 94 Room Air 04/18/25 14:44 103 H 04/18/25 11:51 36.9 C 76 16 114/69 95 Room Air 04/18/25 11:22 80 04/18/25 08:30 Room Air, Nasal Cannula 04/18/25 07:53 36.4 C L 79 20 112/59 L 98 Nasal Cannula O2 Flow Rate 04/18/25 16:34 04/18/25 14:44 04/18/25 11:51 04/18/25 11:22 04/18/25 08:30 04/18/25 07:53 2 Laboratory Results Laboratory Results - last 72 hr 04/15/25 04/15/25 04/17/25 17:38 18:50 20:15 WBC Cancelled 6.81 RBC Cancelled 3.11 L Hgb Cancelled 9.7 L Hct Cancelled 30.3 L MCV Cancelled 97.4 MCH Cancelled 31.2 MCHC Cancelled 32.0 RDW Std Deviation Cancelled 55.3 H RDW Coeff of Kim Cancelled 15.4 H Plt Count Cancelled 242 MPV Cancelled 8.6 L Immature Gran % (Auto) Cancelled 0.3 Neut % (Auto) Cancelled 55.6 Lymph % (Auto) Cancelled 26.4 Coffey % (Auto) Cancelled 14.4 Eos % (Auto) Cancelled 2.6 Baso % (Auto) Cancelled 0.7 Neut # (Auto) Cancelled 3.78 Lymph # (Auto) Cancelled 1.80 Coffey # (Auto) Cancelled 0.98 H Eos # (Auto) Cancelled 0.18 Baso # (Auto) Cancelled 0.05 Immature Gran # (Auto) Cancelled 0.02 Absolute Nucleated RBC Cancelled Nucleated RBC % (auto) Cancelled Neutrophils % (Manual) Cancelled Band Neutrophils % Cancelled Lymphocytes % (Manual) Cancelled Prolymphocyte % Cancelled Reactive Lymphs % (Man) Cancelled Monocytes % (Manual) Cancelled Eosinophils % (Manual) Cancelled Basophils % (Manual) Cancelled Metamyelocytes % (Man) Cancelled Myelocytes % (Man) Cancelled Promyelocytes % (Man) Cancelled Blast Cells % (Manual) Cancelled Plasma Cell % (Manual) Cancelled Other Cells % Cancelled Nucleated RBC % Cancelled Neutrophils # (Manual) Cancelled Band Neutrophils # Cancelled Total Absolute Neuts Cancelled Lymphocytes # (Manual) Cancelled Prolymphocyte # Cancelled Reactive Lymphs # Cancelled Total Abs Lymphocytes Cancelled Monocytes # (Manual) Cancelled Eosinophils # (Manual) Cancelled Basophils # (Manual) Cancelled Metamyelocytes # (Man) Cancelled Myelocytes # (Manual) Cancelled Promyelocytes # (Man) Cancelled Blast Cells # (Man) Cancelled Plasma Cell # (Manual) Cancelled Other Cells # Cancelled Nucleated RBCs # (Man) Cancelled Hypersegmented Neuts Cancelled Hyposegmented Neuts Cancelled Hypogranular Neuts Cancelled Large Granular Lymphs Cancelled # Lrg Granular Lymphs Cancelled Hairy Cells Cancelled Smudge Cells Cancelled Toxic Granulation Cancelled Toxic Vacuolation Cancelled Dohle Bodies Cancelled Orlando Rods Cancelled Platelet Estimate Cancelled Hypogranular Platelets Cancelled Giant Platelets Cancelled Platelet Satelliting Cancelled RBC Morphology Cancelled Polychromasia Cancelled Hypochromasia Cancelled Poikilocytosis Cancelled Basophilic Stippling Cancelled Anisocytosis Cancelled Microcytosis Cancelled Macrocytosis Cancelled Spherocytes Cancelled Pappenheimer Bodies Cancelled Sickle Cells Cancelled Target Cells Cancelled Tear Drop Cells Cancelled Ovalocytes Cancelled Stomatocytes Cancelled Gamino-Hoover Bodies Cancelled Echinocytes Cancelled Acanthocytes (Spur) Cancelled Rouleaux Cancelled RBC Agglutinates Cancelled Schistocytes Cancelled Sezary Cell Cancelled Sodium TNP 141 Potassium TNP 4.6 Chloride 106 Carbon Dioxide 27 Anion Gap TNP BUN 25 H Creatinine 0.97 Est Cr Clr Drug Dosing 34.9 eGFR 58.34 BUN/Creatinine Ratio 25.8 H Glucose 115 H POC Glucose 92 Calcium 9.2 Magnesium TNP 2.0 Total Bilirubin 0.5 AST TNP 21 ALT 18 Alkaline Phosphatase 171 H Total Protein 7.1 Albumin 3.6 Globulin 3.5 Albumin/Globulin Ratio 1.0 Blood Parasites ID Cancelled PG Care Time/CCT Total # of Minutes Spent Total Time Spent with Patient: Total time spent is greater than 50% in coordination of care (as documented) at patient's floor/unit and/or counseling patient: Coding Level of Care Code 93177 SUB INP/OBS CARE 25MIN Diagnoses Acute pain of left hip M25.552 Osteoarthritis of left hip M16.12 Ambulatory dysfunction R26.2 Time Spent (min) 20
[2025-04-18 19:58] VITALS: RESP 16
[2025-04-19 08:15] VITALS: O2SAT 93
[2025-04-19] MEDS: D5W AND NSS 1,000 ML IV SCH (09:00)
[2025-04-19 09:33] LABS: Anion Gap 6.0 (3-11); Blood Urea Nitrogen 34.0 mg/dl (6-23); Calcium 9.5 mg/dl (8.6-10.3); Carbon Dioxide 30.0 mmol/L (21-32); Chloride 102.0 mmol/L (98-107); Creatinine Clr Calc Pharmacy 25.9 ml/min; Glucose 97.0 mg/dl (70-99(Fasting)); Potassium 4.1 mmol/L (3.5-5.1); Sodium 138.0 mmol/L (136-145)
[2025-04-19 12:32] VITALS: PULSE 95; TEMP 99
--- NOTE | 2025-04-19 12:52 | Hospitalist Progress Note ---
Date of Service April 19, 2025 Assessment & Plan (1) Acute pain of left hip: Plan: Romina Jensen is a 84 yo woman with PMH of left hip arthritis s/p left hip arthroplasty on 03/25/[address] Roberth Ortiz, RA, A-fib, sick sinus s/p pacemaker, hypothyroidism, RA, GERD, IBS she was dc with aspirin BID for DVT prophylaxis, hydrocodone and fentanyl patch for pain control on 04/15, been having significant left hip pain inability to wear weight and here for evaluation family significant she significantly weaker compare to her baselin and requested PT/OT evaluation and [facility] 1. left hip apin 2. left hip osteoarthritis s/p arthroplasty on 03/25 3. ambulatory dysfunction 4. A-fib s/p watchman, sick sinus s/p pacemaker 5. IBS, GERD. 6. RA 7. STEPHANIE 8. hypothyroidism 9. hx of oxycodone allergy (hallucination) 10. hx of contrast allergy deposition insurance denied [facility] appreciate case management assistance to finding [facility] 50% weight bearing left hip pain, hx of left hip arthritis s/p left anterior total hip arthroplasty (03/25/2025) hydrocodone, fentanyl her pain did not improve with hydrocodone started on morphine, no sedation morphine for pain control. she does not has sedation on morphine robaxin DVT prophylaxis, aspirin BID remote right and subacute left fracture deformity b/l superior and inferior pubic rami Dr. Ortiz requested for 50% weight bearing mild inferior endplate compression deformity; L2. left hip osteoarthritis s/p arthroplasty on 03/25 aspirin 81mg BID heparin while here deposition; family requested for [facility] (2) Osteoarthritis of left hip: (3) Ambulatory dysfunction: Admission and Anticipated Discharge Date Admission Date: April 15, 2025 Subjective insurance denied inpatient rehab ([facility]) her pain is stable on morphine, no sedation spoke with insurance for appeal, but medial director denied per orthopedic, requested for 50% weight bearing discussed she's need DEXA (bone density testing) Physical Exam Physical Exam: VITALS: Reviewed. WEIGHT/BMI reviewed. GEN: Healthy appearing, well-developed, NAD. -Head: NC/AT; -Mouth and throat: MMM. Normal gums, muc markie, palate,. Good dentition. NECK: Supple, with no masses. CV: RRR, no m/r/g. LUNGS: CTAB, no w/r/c. ABD: Soft, NT/ND, NBS, no masses or organomegaly. : N/A SKIN: Warm, well perfused. No skin rashes or abnormal lesions. MSK: left pelvic painful to palpation; left hip painful rOM EXT: No clubbing, cyanosis, or edema. NEURO: AAOx3 Results & Data Results & Data Vital Signs (Past 12 Hours) Vital Signs Temp Pulse Pulse Resp BP Pulse Ox O2 Del Method 04/19/25 12:31 37.2 C 95 H 16 99/64 L 93 Room Air 04/19/25 08:14 36.9 C 79 16 99/62 L 93 Room Air 04/19/25 07:29 79 04/19/25 03:56 36.7 C 75 16 107/69 97 Nasal Cannula 04/19/25 01:00 75 O2 Flow Rate 04/19/25 12:31 04/19/25 08:14 04/19/25 07:29 04/19/25 03:56 2 04/19/25 01:00 Laboratory Results Laboratory Results - last 72 hr 04/17/25 04/19/25 20:15 08:47 Sodium 138 Potassium 4.1 Chloride 102 Carbon Dioxide 30 Anion Gap 6 BUN 34 H Creatinine 1.08 Est Cr Clr Drug Dosing 25.9 eGFR 51.29 BUN/Creatinine Ratio 31.5 H Glucose 97 POC Glucose 92 Calcium 9.5 PG Care Time/CCT Total # of Minutes Spent Total Time Spent with Patient: Total time spent is greater than 50% in coordination of care (as documented) at patient's floor/unit and/or counseling patient: Coding Level of Care Code 08717 SUB INP/OBS CARE 08/28MIN Diagnoses Acute pain of left hip M25.552 Osteoarthritis of left hip M16.12 Ambulatory dysfunction R26.2 Time Spent (min) 25
[2025-04-19 15:42] VITALS: BP 115/57
--- NOTE | 2025-04-19 16:38 | Discharge Summary ---
Discharge Summary Date of Service April 19, 2025 Principal Dx & Hospital Course #1 = Principal Diagnosis (1) Acute pain of left hip: Hospital course Romina Jensen is a 84 yo woman with PMH of left hip arthritis s/p left hip arthroplasty on 03/[address] Roberth Ortiz, A-fib s/p watchmen device; sick sinus s/p pacemaker, RA, GERd, hypothhyroidism. she's s/p hip arthroplasty on 03/25 and on aspirin BID for DVT. however, since been having worsening left hip pain, inability to wear weight and came to ED on 04/15/2025 for evaluation her duplex negative for DVT but CT pelvis found non-displaced acetbular fracture and subacute superior and inferior pubic rami fractures she's was having 10/10 pain despite hydrocodone, she was then started on morphine 15mg PRN and responded well in addition, her lumbar CT scanf ound endplate compression fracture deformity of L2. patient was evaluated by orthopedic (Dr. Ortiz). and recommended 50% partial weight bearing on her left leg. orthopedic does not want PT to push her too hard with ambulation she will need repeat X-ray in 3 weeks her insurance denied placement to [facility]. I called insurance medical insurance clerk and he also declined placement to [facility]. her family requested that she been dc home with home services she was provided with morphine 15mg PRN and robaxin for pain control. she was dc home on 04/19/2025 afternoon, her was updated at bedside Romina Jensen is a 84 yo woman with PMH of left hip arthritis s/p left hip arthroplasty on 03/25/[address] Roberth Ortiz, RA, A-fib, sick sinus s/p pacemaker, hypothyroidism, RA, GERD, IBS she was dc with aspirin BID for DVT prophylaxis, hydrocodone and fentanyl patch for pain control on 04/15, been having significant left hip pain inability to wear weight and here for evaluation family significant she significantly weaker compare to her baselin and requested PT/OT evaluation and requested placement to [facility] 1. left hip apin 2. left hip osteoarthritis s/p arthroplasty on 03/25 3. ambulatory dysfunction 4. A-fib s/p watchman, sick sinus s/p pacemaker 5. IBS, GERD. 6. RA 7. STEPHANIE 8. hypothyroidism 9. hx of oxycodone allergy (hallucination) 10. hx of contrast allergy deposition insurance denied [facility] appreciate case management assistance to finding [facility] 50% weight bearing left hip pain, hx of left hip arthritis s/p left anterior total hip arthroplasty (03/25/2025) hydrocodone, fentanyl her pain did not improve with hydrocodone started on morphine, no sedation morphine for pain control. she does not has sedation on morphine robaxin DVT prophylaxis, aspirin BID remote right and subacute left fracture deformity b/l superior and inferior pubic rami Dr. Ortiz requested for 50% weight bearing mild inferior endplate compression deformity; L2. left hip osteoarthritis s/p arthroplasty on 03/25 aspirin 81mg BID heparin while here deposition; family requested for [facility] (2) Osteoarthritis of left hip: (3) Ambulatory dysfunction: Admission HPI Per Admitting Provider Romina Jensen is a 84 yo woman with PMH of left hip arthritis s/p left total hip arthroplasty by Dr. Roberth Ortiz on 03/25/2025; A-fib s/p watchman, sick sinus s/p pacemaker, RA, IBS, GERD, migraine, hx of traumatic brain injury she has oxycodone (hallucination reaction) and contrast allergy. she's has surgical repair of Left hip by Dr. Roberth Ortiz. on 03/25/2025, started on aspirin BID for DVT prophylaxis and pain control with fentanyl 25mcg and tramadol. she was on hydrocodone for pain control and was having home PT services on 04/15/2025, she's mentioned significant hip pain and significant weakness and requested placement to [facility] for health. her family concerned about her weakness, risk of falling and inability to safely manage at home. she will be admitted to medicine services for pain control and admitted for PT/OT evaluation and placement to [facility] she's has no chest pain, no shortness of breath no dizziness; AAOx3 she is full code. she's designated her daughter and her as decision maker her medical record mentioned allergy to oxycodone (hallucination ) Discharge Exam VITALS: Reviewed. WEIGHT/BMI reviewed. GEN: frail; thin appearing PSYCH: Good Judgment. AOx3. Normal memory, mood, and affect. HEENT -Head: NC/AT; NECK: Supple, with no masses. CV: RRR, no m/r/g. LUNGS: CTAB, no w/r/c. ABD: Soft, NT/ND, NBS, no masses or organomegaly. SKIN: Warm, well perfused. No skin rashes or abnormal lesions. MSK: left hip incision healing. limited ROM; pelvic tender to palpation EXT: No clubbing, cyanosis, or edema. NEURO: AAOx3 Discharge Plan Discharge Items Patient Disposition: Home - Home Health Services Reason For Visit: INTRACTABLE LEFT HIP PAIN, AMBULATORY DYSFUNCTION Discharge Diagnosis: pubic symphsis fracture intractable hip pain delayed wound healing Condition on Discharge: Fair Activity: Per Instructions section Lifting Comment: 50% weight bearing. Bathing: No limitations Exercise/Sports: Rest today and Gradually increase as tolerated Non-emergency contact: Primary Care Provider and Surgeon Call non-emergency contact if: your symptoms worsen, your pain is unusual for you and your rectal temperature is above 100.4 Follow-up/Referrals: Ernestina Swanson, [Primary Care Provider] - Diet: Regular Addtl Attending Provider Instructions: you will be on pain medicine (morphine) robaxin standing dose you will see Dr. Ortiz in 3 weeks Addtl [employer] Representative Provider Instructions: Orthopedic discharge instructions: 50% partial weightbearing to left leg for the next 4 to 6 weeks. Follow-up with Dr. Ortiz in 3 weeks. I will obtain x-rays of your left hip to make sure everything is stable. Please call the office to set up an appointment for time that works for you. Office phone number is [phone]. Pending Studies at Discharge: Yes Studies:: bone density testing (DEXA scan). Stand-Alone Forms: My [facility], Smoking Cessation Medications and DC Order Prescriptions: New methocarbamol 500 mg Tablet 500 mg PO TID 21 Days Qty: 63 0RF morphine 15 mg tablet 15 mg PO Q8H PRN (Reason: pain) 10 Days Qty: 30 0RF naloxone [Narcan] 4 mg/actuation spray,non-aerosol 1 spray intranasal ONCE 30 Days Qty: 2 0RF Continued sucralfate 100 mg/mL suspension 5 ml PO DAILY PRN (Reason: Abdominal Pain) ondansetron HCl 4 mg tablet 4 mg PO Q6H PRN (Reason: nausea and vomiting) Qty: 20 0RF calcium-vitamin D3-vitamin K [Viactiv] 650 mg-12.5 mcg-40 mcg Tablet,Chewable 1 tab PO BID Patient Comments: 04/15- otc unable to verify lorazepam 0.5 mg Tablet 0.5 mg PO DAILY PRN (Reason: Anxiety) pantoprazole 40 mg Tablet,Delayed Release (Dr/Ec) 40 mg PO BID levothyroxine 50 mcg Tablet 50 mcg PO Q2D Rx Instructions: ALTERNATE WITH 75MCG PreserVision AREDS 2 Plus MV 200 mcg-15 mcg- 5 mg-1 mg Capsule 1 cap PO BID Patient Comments: 04/15- otc unable to verify polyethylene glycol 3350 [Miralax] 17 gram powder in packet 17 g PO UD PRN (Reason: Constipation) Patient Comments: 04/15- otc unable to verify Centrum 18-400 mg-mcg Tablet 1 tab PO QAM Patient Comments: 04/15- otc unable to verify levothyroxine 75 mcg Tablet 75 mcg PO Q2D Rx Instructions: ALTERNATE WITH 50MCG dicyclomine 10 mg capsule 10 mg PO BID Humira 40 mg/0.8 mL Syringe Kit 40 mg SUBCUT Q7D Rx Instructions: SATURDAYS. fentanyl 25 mcg/hr patch 72 hour 1 patch transdermal Q72H aripiprazole 5 mg Tablet 5 mg PO HS aspirin [Adult Aspirin Regimen] 81 mg tablet,delayed release (DR/EC) 81 mg PO BID Qty: 84 0RF Patient Comments: 04/15- otc unable to verify famotidine 20 mg tablet 20 mg PO DAILY PRN (Reason: Indigestion) duloxetine 60 mg capsule,delayed release(DR/EC) 60 mg PO QAM furosemide 20 mg tablet 20 mg PO QAM Hold Instructions: Resume on 04/01/25. atorvastatin 40 mg Tablet 40 mg PO QAM Qty: 30 0RF collagen 1 dose PO QAM Patient Comments: 04/15- otc unable to verify Rx Instructions: liquid collagen aspirin [Children's Aspirin] 81 mg tablet,chewable 81 mg PO QAM Patient Comments: 04/15- otc unable to verify Discontinued tramadol 50 mg tablet 50 mg PO Q6H PRN (Reason: pain) Qty: 30 0RF Discharge Orders: Discharge Order (Routine); Ordered 04/19/25 Ordered By: Shan Santillan/Other Patient Handouts: Bone Density Study, Osteoporosis Prevention Calcium, Osteoporosis Prevention, Osteoporosis Prevent Fx, Osteoporosis Screening, ED Pelvic Fracture Admission Data Admit Date/Time: 04/15/25 17:56 Attending Provider: Shan Peralta Admit Provider: Shan Peralta Primary Care Provider: Ernestina Swanson Other Providers: [facility]; Shan Peralta; Robreth Ortiz Other Interventions: Discharge Summary Assessment (RN) Last Done: 04/19/25 15:40 Hospital Stay Data Consultations 04/15/25 17:24 ED Decision to Admit Stat 04/15/25 18:14 Consult Orthopedic Surgery Stat Diagnostic Imagining Performed 04/15/25 18:14 US venous duplex leg [US venous doppler LE BI] Stat 04/16/25 11:23 CT abd pelvis wo con Urgent 04/16/25 11:24 CT hip LT wo con Routine CT lumbar spine wo con Urgent Pending Results Patient Have Any Pending Studies at Discharge: Yes Discharge Instructions Given to Patient (Per Discharging Provider) you will be on pain medicine (morphine) robaxin standing dose you will see Dr. Ortiz in 3 weeks Total Time Total Time Spent Total Time Spent (In Minutes): 35 Coding Level of Care Code 39036 INP/OBS DISCH >30 MIN Diagnoses Acute pain of left hip M25.552 Osteoarthritis of left hip M16.12 Ambulatory dysfunction R26.2 Time Spent (min) 35
== END 2025-04-19 16:38 | disposition home health service (06) | DRG 536 ==
LOC: ED 11:55 → 2N 17:56